=== PATIENT | male | born 1945 | race Caucasian/White ===

== ENCOUNTER 2016-12-04 09:52 | Inpatient (IN) | payer OTHER ==
[2016-12-04] VITALS (19 sets, daily range): BP systolic 98–151; BP diastolic 53–108; PULSE 54–91; TEMP 36.8–37; O2SAT 93–99; Ht 185.4 cm; Wt 83.0 kg
[~2016-12-04] VITALS: Ht 185.4 cm; Wt 83.0 kg
[~2016-12-04 09:52] MED LIST: ASPEC81 PO; CLOP1TAB15 PO; CMD75 PO; GABA1CAP5 PO; LPT40 PO; POTA20TA13 PO; RMR15 PO; SODIUM CHLORIDE 0.9% 1000ML 1,000 ML IV STA; UMEC1AER; ZNTT/150 PO
[2016-12-04] MEDS ORDERED: NITROGLYCERIN 0.4 MG SL PER TAB CHARGE SL STA (09:54)
--- NOTE | 2016-12-04 10:01 | EMERGENCY ROOM VISIT NOTE ---
History Report prepared by Emily: Beena Serrato Under the Supervision of: Dr. Berny Goss M.D. First contact with patient: 09:46 Stated Complaint: HEART ALERT History of Present Illness The patient is a 71 year old male who presents to the Emergency Room with complaints of persistent chest pain that began at 0900 this morning. He currently rates his discomfort as a 9/10 in severity. Per EMS the patient woke this morning with the chest pain and states that his pain has worsened throughout the morning. They note that he was given 10 mg of Morphine without relief of his symptoms. The patient associates nausea with his symptoms today and EMS reports that the patient has been diaphoretic. EMS reports that the patient is on 75 mg of Plavix daily and the patient denies taking his morning medications today. The patient notes a history of four previous MIs. Per EMS the patient's pulse has been running between 40-60 beats per minute and his last blood pressure reading was 135 mmHg systolically. Source of History: patient, EMS Onset: 0900 this morning Position: chest Symptom Intensity: 9/10 Timing: worsening, other (worsening) Associated Symptoms: + diaphoresis, + nausea Review of Systems See HPI for pertinent positives & negatives. A total of 10 systems reviewed and were otherwise negative. Past Medical & Surgical Medical Problems: (1) CAD (coronary artery disease) of bypass graft (2) Closed fracture of proximal end of left humerus (3) COPD (chronic obstructive pulmonary disease) (4) Depression (5) DVT (deep venous thrombosis) (6) History of alcohol abuse (7) Hypercholesteremia (8) Hyperlipidemia (9) Malnutrition (10) WV (myocardial infarction) (11) PE (pulmonary embolism) (12) Peripheral neuropathy (13) Warfarin anticoagulation Surgical Problems: (1) H/o neuroma removed from foot (2) History of carpal tunnel surgery (3) Hx of CABG (4) S/P coronary artery stent placement Family History Patient reports no known family medical history. Social History Smoking Status: Current Every Day Smoker Drug Use: none Marital Status: Housing Status: lives with significant other Occupation Status: retired Current/Historical Medications Scheduled Acetaminophen (Tylenol), 650 MG PO Q6 Atorvastatin (Lipitor), 20 MG PO DAILY Calcium/Vitamin D (Os-[place] 500 Plus D), 1 TAB PO BID Clopidogrel (Plavix), 75 MG PO DAILY Cyanocobalamin (Vitamin B-12), 1,000 MCG PO DAILY Ferrous Sulfate (Kp Ferrous Sulfate), 325 TAB PO BID Folic Acid (Folvite), 1 MG PO DAILY Gabapentin (Neurontin), 400 MG PO TID Magnesium Oxide (Mag-Ox), 400 MG PO BID Metoprolol Succ (Toprol Xl) (Toprol-Xl), 12.5 MG PO DAILY Mirtazapine (Mirtazapine), 15 MG PO HS Potassium Chloride Microencaps (Potassium Chloride Er), 20 MEQ PO BID Ramipril (Ramipril), 2.5 MG PO DAILY Ranitidine (Zantac), 150 MG PO DAILY Sertraline (Zoloft), 50 MG PO DAILY Warfarin Sod (Jantoven), 6 MG PO DIRECTED Scheduled PRN Magnesium Hydroxide (Milk of Magnesia), 30 ML PO DAILY PRN for Constipation Allergies Coded Allergies: No Known Allergies (Unverified , 02/02/16) Physical Exam Vital Signs Date Time Temp Pulse Resp B/P Pulse Ox O2 Delivery O2 Flow Rate FiO2 12/04/16 12:30 36.8 91 18 147/101 94 Room Air 12/04/16 12:30 36.8 90 20 148/108 93 Room Air 12/04/16 12:15 88 16 154/94 94 Room Air 12/04/16 12:00 88 16 154/95 99 Nasal Cannula 4 12/04/16 10:05 56 22 141/82 12/04/16 10:04 56 20 141/82 96 12/04/16 10:00 48 12/04/16 09:59 Nasal Cannula 2.0 12/04/16 09:55 54 20 148/87 95 Nasal Cannula 2.0 12/04/16 09:55 Nasal Cannula 2.0 Physical Exam GENERAL: Patient is diaphoretic. HEAD: Normocephalic atraumatic EYES: Ocular movements intact pupils equal and react to light OROPHARYNX mucous membranes are moist no exudates present no erythema or edema present NECK: Supple no nuchal rigidity CHEST: Good equal expansion LUNGS: Clear and equal to auscultation CARDIAC: Normal S1 and S2 ABDOMEN: Soft nontender no guarding BACK: No CVA tenderness EXTREMITIES: No pain upon palpation normal muscle strength in all groups no clubbing cyanosis or edema NEURO: Patient is following commands is answering questions appropriately. Alert and oriented x3 Cranial Nerves 2-12 grossly intact Medical Decision & Procedures ER Provider Diagnostic Interpretation: X-ray results as stated below per interpretation by me and the radiologist: CHEST ONE VIEW PORTABLE HISTORY: Atypical chest pain. COMPARISON: Chest 09/19/2016. FINDINGS: There are poststernotomy changes. Calcified right hilar and subcarinal lymph nodes are again noted. The heart is stable in size. No focal lung consolidations. No evidence for pulmonary edema. Calcified granuloma within the right lower lobe. No pleural effusions. No pneumothorax. IMPRESSION: No acute process. Electronically signed by: Chano Dumont M.D. 12/04/2016 10:08 AM Dictated Date/Time: 12/04/2016 10:06 AM Laboratory Results 12/04/16 09:35 Red Blood Count 5.27, Mean Corpuscular Volume 89.2, Mean Corpuscular Hemoglobin 31.5, Mean Corpuscular Hemoglobin Concent 35.3, Mean Platelet Volume 9.9, Neutrophils (%) (Auto) 41.3, Lymphocytes (%) (Auto) 41.0, Monocytes (%) (Auto) 11.8, Eosinophils (%) (Auto) 5.2, Basophils (%) (Auto) 0.6, Neutrophils # (Auto ) 3.66, Lymphocytes # (Auto) 3.62, Monocytes # (Auto) 1.04, Eosinophils # (Auto ) 0.46, Basophils # (Auto) 0.05 12/04/16 09:35 Test 12/04/16 09:35 12/04/16 09:52 12/04/16 11:34 White Blood Count 8.84 K/uL (4.8-10.8) Red Blood Count 5.27 M/uL (4.7-6.1) Hemoglobin 16.6 g/dL (14.0-18.0) Hematocrit 47.0 % (42-52) Mean Corpuscular Volume 89.2 fL (80-100) Mean Corpuscular Hemoglobin 31.5 pg (25-34) Mean Corpuscular Hemoglobin Concent 35.3 g/dl (32-36) Platelet Count 239 K/uL (130-400) Mean Platelet Volume 9.9 fL (7.4-10.4) Neutrophils (%) (Auto) 41.3 % Lymphocytes (%) (Auto) 41.0 % Monocytes (%) (Auto) 11.8 % Eosinophils (%) (Auto) 5.2 % Basophils (%) (Auto) 0.6 % Neutrophils # (Auto) 3.66 K/uL (1.4-6.5) Lymphocytes # (Auto) 3.62 K/uL (1.2-3.4) Monocytes # (Auto) 1.04 K/uL (0.11-0.59) Eosinophils # (Auto) 0.46 K/uL (0-0.5) Basophils # (Auto) 0.05 K/uL (0-0.2) RDW Standard Deviation 59.6 fL (36.4-46.3) RDW Coefficient of Variation 18.4 % (11.5-14.5) Immature Granulocyte % (Auto) 0.1 % Immature Granulocyte # (Auto) 0.01 K/uL (0.00-0.02) Prothrombin Time 11.6 SECONDS (9.0-12.0) Prothromb Time International Ratio 1.1 (0.9-1.1) Activated Partial Thromboplast Time 26.4 SECONDS (21.0-31.0) Partial Thromboplastin Ratio 1.0 Anion Gap 11.0 mmol/L (3-11) Est Creatinine Clear Calc Drug Dose 59.7 ml/min Estimated GFR () 64.1 Estimated GFR (Non- 55.3 BUN/Creatinine Ratio 5.7 (10-20) Calcium Level 8.7 mg/dl (8.5-10.1) Magnesium Level 2.0 mg/dl (1.8-2.4) Total Bilirubin 0.9 mg/dl (0.2-1) Direct Bilirubin 0.2 mg/dl (0-0.2) Aspartate Amino Transf (AST/SGOT) 14 U/L (15-37) Alanine Aminotransferase (ALT/SGPT) 10 U/L (12-78) Alkaline Phosphatase 116 U/L (45-117) Total Creatine Kinase 53 U/L (39-308) Creatine Kinase MB 0.9 ng/ml (0.5-3.6) Creatine Kinase MB Ratio 1.7 (0-3.0) Total Protein 7.7 gm/dl (6.4-8.2) Albumin 3.6 gm/dl (3.4-5.0) Lipase 166 U/L (73-393) Kaolin Activated Coagulation Time 266 SECONDS (94-140) Labs reviewed by ED physician. Medications Administered Medications (Trade) Dose Ordered Sig/Nieves Route Start Time Stop Time Status Last Admin Dose Admin Heparin Sodium (Porcine) (Heparin Iv Bolus) 10,000 unit STK-MED ONCE .ROUTE 12/04/16 10:15 12/04/16 10:17 DC 12/04/16 10:15 8,000 UNIT Fentanyl Citrate (Fentanyl Inj) 100 mcg STK-MED ONCE .ROUTE 12/04/16 10:15 12/04/16 10:17 DC 12/04/16 10:15 75 MCG Midazolam HCl (Versed Inj) 2 mg STK-MED ONCE .ROUTE 12/04/16 10:15 12/04/16 10:17 DC 12/04/16 10:15 2 MG Eptifibatide (Integrilin Inj) 40 mg STK-MED ONCE IV 12/04/16 10:29 12/04/16 10:31 DC 12/04/16 10:29 40 MG Eptifibatide (Integrilin Inj) 75 mg STK-MED ONCE IV 12/04/16 10:29 12/04/16 10:31 DC 12/04/16 10:29 75 MG Atropine Sulfate 1 mg 1 mg STK-MED ONCE .ROUTE 12/04/16 10:41 12/04/16 10:44 DC 12/04/16 10:41 1 MG Sodium Chloride (Nss 1000ml) 1,000 ml @ 100 mls/hr Q10H IV 12/04/16 12:15 12/04/16 19:44 12/04/16 13:06 100 MLS/HR ECG Indication: chest pain Rate (beats per minute): 49 Rhythm: sinus bradycardia Findings: ST depression (Inferior), ST elevation (Anterior) ED Course 0942: I took the medical command call on this patient at this time and a code Heart Alert was called. 0952: Ordered Sodium Chloride 1000 ml @ 999 mls/hr IV. 0953: Past medical records reviewed. The patient was evaluated in room A1. A complete history and physical examination was performed. 0954: Ordered Nitroglycerin 0.4 mg SL. 0959: Dr. Ferro, Cardiology arrived at the patient's bedside. I updated him on the patient's case. 1007: The patient was taken to the Cardiac Catheterization Lab for further treatment at this time. 1009: I talked with the patient's ex- at this time to get a hold of the patient's daughter. 1011: I left a message for the patient's daughter to call back. Medical Decision Differential diagnosis: Etiologies such as cardiac ischemia, aortic dissection, pulmonary embolism, pneumonia, pneumothorax, musculoskeletal, infections, pericarditis, myocarditis , esophageal rupture, gastrointestinal, as well as others were entertained. This is a 71-year-old male who presents emergency department complaining of severe chest pain. I took medical command on this patient. He is having a STEMI. The patient did not take his Plavix this morning. He was given morphine 5 mg 2. I did discuss case with Dr. Ferro who agreed to take the patient to the Records Management Manager. Patient was in agreement with the treatment plan. Impression Primary Impression: STEMI (ST elevation myocardial infarction) Critical Care I have personally spent greater than 30 minutes of critical care time in the direct management of this patient. This includes bedside care, interpretation of diagnostic studies, and testing, discussion with consultants, patient, and family members, and other required patient management activities. This 30 minutes is in excess of all separately billable procedures. Scribe Attestation The scribe's documentation has been prepared under my direction and personally reviewed by me in its entirety. I confirm that the note above accurately reflects all work, treatment, procedures, and medical decision making performed by me. Departure Information Dispostion Being Evaluated By Raysa Bergman M.D. (PCP) Problem Qualifiers Primary Impression: STEMI (ST elevation myocardial infarction) Involved coronary artery: right coronary artery Qualified Codes: I21.11 - ST elevation (STEMI) myocardial infarction involving right coronary artery
[2016-12-04 10:07] LABS: BASO % 0.6 %; BASO ABS # 0.05 K/uL (0-0.2); COMPLETE YES; EOS % 5.2 %; IG% 0.1 %; LYMPH ABS # 3.62 K/uL (1.2-3.4); MEAN CELL VOLUME 89.2 fL (80-100); MEAN CORPUSCULAR HEMOGLOBIN 31.5 pg (25-34); MEAN CORPUSCULAR HGB CONC 35.3 g/dl (32-36); MEAN PLATELET VOLUME 9.9 fL (7.4-10.4); MONO % 11.8 %; NEUT % 41.3 %; PLATELET COUNT 239 K/uL (130-400); RED BLOOD COUNT 5.27 M/uL (4.7-6.1); WHITE BLOOD COUNT 8.84 K/uL (4.8-10.8)
--- NOTE | 2016-12-04 10:09 | DIAGNOSTIC IMAGING REPORT ---
CHEST ONE VIEW PORTABLE HISTORY: Atypical chest pain. COMPARISON: Chest 09/19/2016. FINDINGS: There are poststernotomy changes. Calcified right hilar and subcarinal lymph nodes are again noted. The heart is stable in size. No focal lung consolidations. No evidence for pulmonary edema. Calcified granuloma within the right lower lobe. No pleural effusions. No pneumothorax. IMPRESSION: No acute process. Electronically signed by: Chano Dumont M.D. 12/04/2016 10:08 AM Dictated Date/Time: 12/04/2016 10:06 AM
[2016-12-04] MEDS ORDERED: ATOR-22 PO (10:12)
[2016-12-04] MEDS ORDERED: FERR1TAB13 PO (10:12)
[2016-12-04] MEDS ORDERED: ACET-1311 PO (10:12)
[2016-12-04] MEDS ORDERED: CYAN10005 PO (10:12)
[2016-12-04] MEDS ORDERED: METO25TA3 PO (10:12)
[2016-12-04] MEDS ORDERED: CALC500C70 PO (10:12)
[2016-12-04] MEDS ORDERED: MAGN400T6 PO (10:12)
[2016-12-04] MEDS ORDERED: MOMLX PO (10:12)
[2016-12-04] MEDS ORDERED: SERT50TA PO (10:12)
[2016-12-04] MEDS ORDERED: FOLI1TAB7 PO (10:12)
[2016-12-04] MEDS ORDERED: RAMI2.5C PO (10:12)
[2016-12-04] MEDS ORDERED: MIDAZOLAM HCL 1 MG/ML 2ML VIAL ONE (10:15)
[2016-12-04] MEDS ORDERED: NiCARDipine HCL INJ 2.5 MG/ML 10 ML AMP ONE (10:15)
[2016-12-04] MEDS ORDERED: FENTANYL CITRATE INJ 50 MCG/1 ML 2 ML VIAL ONE (10:15)
[2016-12-04] MEDS ORDERED: HEPARIN SOD (PORCINE) 1000 UNIT/ML 10 ML VIAL ONE (10:15)
[2016-12-04] MEDS ORDERED: NITROGLYCERIN/D5W 100MCG/ML 20ML SYR ONE (10:16)
[2016-12-04] MEDS ORDERED: WARF6TAB5 PO (10:17)
[2016-12-04] MEDS ORDERED: DOPamine 400MG / 250ML D5W ONE (10:20)
[2016-12-04 10:22] LABS: BUN/CREATININE RATIO 5.7 (10-20); CALCIUM 8.7 mg/dl (8.5-10.1); CREATININE 1.3 mg/dl (0.60-1.40); POTASSIUM 3.2 mmol/L (3.5-5.1)
[2016-12-04 10:25] LABS: CKMB/CK RATIO 1.7 (0-3.0)
[2016-12-04 10:28] LABS: INR 1.1 (0.9-1.1); PROTHROMBIN TIME (PATIENT) 11.6 SECONDS (9.0-12.0)
[2016-12-04] MEDS ORDERED: EPTIFIBATIDE 0.75 MG/ML 75MG VIAL IV ONE (10:29)
[2016-12-04] MEDS ORDERED: EPTIFIBATIDE 2 MG/ML 10 ML VIAL IV ONE (10:29)
[2016-12-04] MEDS ORDERED: ATROPINE SULFATE 0.1 MG/ML 10 ML SYR ONE (10:41)
[2016-12-04] MEDS ORDERED: TICAGRELOR 90 MG TAB PO ONE ×2 (12:09→12:15)
[2016-12-04] MEDS ORDERED: MAGNESIUM HYDROXIDE SUSP 30 ML UDC PO PRN (12:15)
[2016-12-04] MEDS ORDERED: EPTIFIBATIDE BOLUS / DRIP IV ONE (12:15)
[2016-12-04] MEDS ORDERED: ATROPINE SULFATE 0.1 MG/ML 5ML SYR IV PRN (12:15)
[2016-12-04] MEDS ORDERED: SODIUM CHLORIDE 0.9% 1000ML 1,000 ML IV SCH (12:15)
[2016-12-04] MEDS ORDERED: ACETAMINOPHEN 325 MG TAB PO PRN (12:15)
[2016-12-04] MEDS ORDERED: ONDANSETRON INJ 2 MG/ML 2 ML VIAL IV PRN (12:15)
--- NOTE | 2016-12-04 12:31 | Procedure Note ---
Pre-Mod Sedation Assessment General Date of Moderate Sedation: Dec 04, 2016. Vital Signs: Vital Signs Past 12 Hours Date Time Temp Pulse Resp B/P Pulse Ox O2 Delivery O2 Flow Rate FiO2 12/04/16 12:00 88 16 154/95 99 Nasal Cannula 4 12/04/16 10:05 56 22 141/82 12/04/16 10:04 56 20 141/82 96 12/04/16 10:00 48 12/04/16 09:59 Nasal Cannula 2.0 12/04/16 09:55 54 20 148/87 95 Nasal Cannula 2.0 12/04/16 09:55 Nasal Cannula 2.0 Review Cardiovascular: regular rate, rhythm, no edema, no gallop, no JVD Abdomen: normal bowel sounds, non tender, soft Lungs: chest non-tender, lungs clear, normal breath sounds Airway Class: II Pre-Sedation Airway Assessment Oral Cavity: WNL Able to Visualize Vocal Cords: Yes Short Thick Neck: No Hx of Sleep Apnea: No Smoking Status: Current Every Day Smoker Mallampati Classification: Class II ASA Classification: Class III Procedure Planning Contraindications-for Mod Sed: None Yes Notes The planned sedation has been discussed with the patient and consent obtained. I have identified the patient, determined the appropriateness of sedation and have assessed the patient immediately prior to the procedure. All medicine(s) and interventions are by my order.
--- NOTE | 2016-12-04 12:32 | Procedure Note ---
Post-Mod Sedation Assessment General Date of Moderate Sedation Dec 04, 2016. Vital Signs: Vital Signs Past 12 Hours Date Time Temp Pulse Resp B/P Pulse Ox O2 Delivery O2 Flow Rate FiO2 12/04/16 12:00 88 16 154/95 99 Nasal Cannula 4 12/04/16 10:05 56 22 141/82 12/04/16 10:04 56 20 141/82 96 12/04/16 10:00 48 12/04/16 09:59 Nasal Cannula 2.0 12/04/16 09:55 54 20 148/87 95 Nasal Cannula 2.0 12/04/16 09:55 Nasal Cannula 2.0 Review - Discharge Criteria Vital Signs Stable: Yes Alert/Oriented/Conversant: Yes Returned to Baseline Mental St: Yes Nausea Absent/Minimal: Yes Pain/Discomfort/Absent/Minimal: Yes Normal/Baseline Respirations: Yes Active Bleeding?: No Pt Received D/C Instructions: N/A Prescriptions Given: None Specific Proced. D/C Criteria Distal Pulses Present (Cardiac: Yes Groin site assessed-Card Cath: Yes Voided Prior To Discharge: N/A
[2016-12-04] MEDS ORDERED: EPTIFIBATIDE INJ 75 MG PREMIXED IV SCH (13:00)
--- NOTE | 2016-12-04 13:19 | Cardiac Catheterization ---
Procedure Note Procedure Date Dec 04, 2016. Pre-Procedure Diagnosis STEMI AUC Score 9 Post-Procedure Diagnosis Severe CAD, Successful PCI Procedure(s) Performed Coronary Angiography, Drug Eluting Stent, IVUS, Femoral Artery Angiography Filter Cleaner Dr. Ferro Farm Appraiser(s) Estimated Blood Loss 25 Medication(s) Fentanyl, Heparin, Nitroglycerin, Versed, Lidocaine 1% Ticagrelor Summary of Findings Indication: STEMI/Heart Alert Access: 6Fr Right Femoral Artery Catheters: JR4 guide, JL4, JR4 diagnostic catheters Findings: LM - Diffuse disease, up to 70% distal stenosis LAD - Severe 90% diffuse proximal disease prior to small 1st diagonal, subtotally occluded mid LAD with competitive flow from SEO. Circumflex - Occluded at the ostium, OM1, OM2 partially fills via bridging left to left collaterals Ramus - Patent with luminal irregularities RCA - 100% occluded in the mid segment, stent thrombosis. SEO-LAD- Patent. 40% proximal subclavian stenosis. Distal LAD is small vessel with luminal irregularities SVG-OM- Known to be occluded Femoral Artery - Mild diffuse disease, acceptable for closure device. Arterial Closure: AngioSeal PCI: Antithrombotic therapy: Heparin, Integrilin, Ticagrelor Procedure: BMW wire placed into distal R-PLB Mid to distal RCA predilated with 2.5 compliant balloon. Prowater placed into distal PDA Ostium of PDA pre-dilated with 2.5 balloon IVUS used to asses for intrastent pathology. Significant intrastent plaque in the mid segment to early distal segment. Proximal and distal RCA without significant restenosis. With the use of a guideliner a 2.5 x 18 Resolute ROBBI placed from distal RCA into PDA Re-wired into PAV/PLB with Medical Affairs Manager 50 wire Ostial PAV stenosis/stent struts dilated with 1.5, then 2.5 balloon. Kissing balloon inflation to PAV, PDA ostium with 2.5 and 2.75 balloons Mid RCA further predilated with 3.0 balloon. Mid RCA stented with 3.5 x 22 Resolute ROBBI Post dilated with stent balloon to high atmospheres. Post procedure good angiographic result with NEVA 3 flow, well-expanded stents and no obvious coronary complications. ST segment elevation/chest pain resolved. Summary: 1. 100% mid RCA acute occlusion/Recurrent stent thrombosis - IVUS assessment showed significant mid segment restenosis(?neoatherosclerosis ) - 99% stenosis of ostial PDA 2. Severe left main, proximal LAD, ostial circumflex disease - unchanged from prior 3. Patent SEO-LAD. Known occluded SVG-OM 4. Successful PCI of mid RCA, ostial PDA with 2 ROBBI (3.5 x 22 Resolute, 2.5 x 18 Resolute) Recommendations: Admit to ICU for continued monitoring Loaded with ticagrelor in director geophysical laboratory Continue integrilin for 6 hours Continue DAPT with ASA/ticagrelor in hospital --> likely switch to plavix on discharge. Recommend lifelong Plavix. Further discussion regarding need of continued triple therapy High dose statin, beta-don, ALON Smoking cessation Cardiac Rehab Hemodynamics Rest Ao: 175/76/119 Final Ao: 161/89/118 LV: - Recommendations PCI without planned CABG Specimens None Radiation Exposure (mGy) 4131 Contrast (mls) 165 Visipaque Fluids (cc crystalloids) 200 NSS Drains None Anesthesia Moderate Procedural Complication(s) None Disposition ICU ACC Data Cardiac Status Clinical evaluation leading to the procedure CAD Presntation: STEMI STEMI or Non-STEMI: Symptom Onset Date/Time: 09:00, 12/04/2016 Anginal Classification: CCS IV Heart Failure: No, NYHA Class: CCS I Cardiogenic Shock w/in 24Hrs: No Cardiac Arrest w/in 24Hrs: No Imaging studies past 6 months: Yes Stress studies past 6 months: No Standard Exercise Stress Test: No Stress Echocardiogram: No Stress Testing w/SPECT MPI: No Cardiac CTA: No Coronary Anatomy Dominant: Right Left Main (% Stenosis): Distal (70) LAD (% Stenosis): Proximal (90), Mid (99) Circumflex (% Stenosis): Ostial (100) RCA (% Stenosis): Mid (100) R PDA (% Stenosis): Ostial (99) Diagnostic Physician's Name: Jose Ferro MD Status: Emergency Closure Device Percutaneous Entry Location: Radial Closure Device: Angio-Seal Recommendations: PCI without planned CABG PCI Indication: Immediate PCI for STEMI Subsequent EKG Date/Time: 951 Lesion Segment Name: mid RCA Culprit Artery: Yes Stenosis Prior to Rx (%): 100 Chronic Total Occlusion: No IVUS: Yes FFR: No Pre-Procedure NEVA Flow: 0 Previously Treated Lesion: Yes Treated Lesion: Timeframe: 1-5 months Treated with Stent: No In-Stent Restenosis: Yes In-Stent Thrombosis: Yes Stent Type: type unknown Lesion Complexity: High/C Lesion Length (mm): 20 Thrombus Present: Yes Bifurcation Lesion: No Guidewire Across Lesion: Yes Guidewire: Stenosis Post-Procedure (%): 0 Post-Procedure NEVA Flow: 3 Device(s) Deployed: Yes Type of Device(s): 3.5 x 22 Resolute ROBBI Lesion #2 Segment Name: Ostial PDA Culprit Artery: No Stenosis Prior to Rx (%): 99 Chronic Total Occlusion: No IVUS: No FFR: No Pre-Procedure NEVA Flow: 0 Previously Treated Lesion: Yes Lesion Complexity: High/C Lesion Length (mm): 12 Thrombus Present: Yes Bifurcation Lesion: Yes Guidewire Across Lesion: Yes Intraprocedure Events Significant Dissection: No Perforation: No
--- NOTE | 2016-12-04 13:58 | Critical Care Consultation ---
Critical Care Consultation Date of Consultation: Dec 04, 2016. Attending Physician: Chayito Small DO Reason for Consultation: Post PCI with drug-eluting stent to the RCA History of Present Illness Attending: Dr. Rosenbaum This is a 71-year-old male with multiple admissions to this facility for prior cardiac disease and stenting. He has a history of two-vessel CABG in the past and multiple cardiac catheterizations with stent placement. The patient states that he awoke this morning with no specific chest pain but significant chest tightness which usually is a prodrome for acute ND. He called EMS and was transported to our emergency room where he was evaluated and found to have ST elevation with ongoing chest pain. He was taken emergently to the cardiac catheterization lab by Dr. Ferro and found to have sinus bradycardia with inferior ST elevations. In the Power [employer] he was found to have 100% occlusion of the mid RCA inside prior stents. Patient had balloon dilation and restenting. Patient was treated with two new drug-eluting stents. One was placed in the ostium of the PDA and the other to the mid RCA. It was noted that his prior vein graft to his OM was known to be occluded. In discussion with the patient is unclear on what medications he does and does not take. He reports that his daughter Conchita puts his medications into a pill container weekly and he takes them based on that distribution. He also reports that he does have difficulty with swallowing large pills. He admits to cutting pills and crushing pills so he can consume them. He is unsure if these pills are long-acting or immediate release and is further unsure as to what these pills are. He does report pill dysphagia with vomiting occasionally at home for an unknown amount of time. I did speak with the patient's daughter Conchita and she advised me that the patient has been out of Plavix. This is been due to be refilled but he has not refilled it. She also informed me that he was advised to go in for regular INR checks because of recurrence of ethanol abuse and has not done that. Consequently, she is only giving him 4 mg daily of Coumadin which she believes he is taking. She does admit to feeling his pill container to the best of her ability but she has not been able to get clear information from him. She reports that her father was told that if he continues be noncompliant with medications and with ethanol use that he would need to be taken off the Plavix and Coumadin due to increased risk. At the time of my examination, the patient denied any chest pain or shortness of breath. He reports this chest tightness was completely resolved. He does talk about his of 46 years leaving him in June 2016 and was emotional as he recounted this to me. I specifically asked him about suicidal intention and he denied intent or means. The patient has no other acute complaints. Past Medical/Surgical History Medical Problems: (1) CAD (coronary artery disease) of bypass graft (2) Closed fracture of proximal end of left humerus (3) COPD (chronic obstructive pulmonary disease) (4) Depression (5) DVT (deep venous thrombosis) (6) History of alcohol abuse (7) Hypercholesteremia (8) Hyperlipidemia (9) Malnutrition (10) ND (myocardial infarction) (11) PE (pulmonary embolism) (12) Peripheral neuropathy (13) Warfarin anticoagulation Surgical Problems: (1) H/o neuroma removed from foot (2) History of carpal tunnel surgery (3) Hx of CABG (4) S/P coronary artery stent placement Family History Patient reports no known family medical history. Social History Smoking Status: Current Every Day Smoker (patient admits to 4-5 cigarettes daily and off-and-on smoking his whole life since age 12) Smokeless Tobacco Use: No Alcohol Use: patient reports daily ethanol use of between two and four drinks Drug Use: none Marital Status: (patient is but states that his is estranged since June 2016) Housing Status: lives alone (the patient currently lives alone. 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) Allergies Coded Allergies: No Known Allergies (Unverified , 02/02/16) Home Medications Scheduled Acetaminophen (Tylenol), 650 MG PO Q6 Atorvastatin (Lipitor), 20 MG PO DAILY Calcium/Vitamin D (Os-[place] 500 Plus D), 1 TAB PO BID Clopidogrel (Plavix), 75 MG PO DAILY Cyanocobalamin (Vitamin B-12), 1,000 MCG PO DAILY Ferrous Sulfate (Kp Ferrous Sulfate), 325 TAB PO BID Folic Acid (Folvite), 1 MG PO DAILY Gabapentin (Neurontin), 400 MG PO TID Magnesium Oxide (Mag-Ox), 400 MG PO BID Metoprolol Succ (Toprol Xl) (Toprol-Xl), 12.5 MG PO DAILY Mirtazapine (Mirtazapine), 15 MG PO HS Potassium Chloride Microencaps (Potassium Chloride Er), 20 MEQ PO BID Ramipril (Ramipril), 2.5 MG PO DAILY Ranitidine (Zantac), 150 MG PO DAILY Sertraline (Zoloft), 50 MG PO DAILY Warfarin Sod (Jantoven), 6 MG PO DIRECTED Scheduled PRN Magnesium Hydroxide (Milk of Magnesia), 30 ML PO DAILY PRN for Constipation Current Inpatient Medications Current Inpatient Medications Medications (Trade) Dose Ordered Sig/Nieves Route Start Time Stop Time Status Last Admin Dose Admin Sodium Chloride (Nss 1000ml) 1,000 ml @ 100 mls/hr Q10H IV 12/04/16 12:15 12/04/16 19:44 12/04/16 13:06 100 MLS/HR Atropine Sulfate (Atropine Sulfate 0.1MG/Ml Inj) 0.5 mg ONE PRN IV 12/04/16 12:15 01/03/17 12:14 Ondansetron HCl (Zofran Inj) 4 mg Q6H PRN IV 12/04/16 12:15 01/03/17 12:14 Aspirin (Ecotrin Tab) 81 mg QAM PO 12/05/16 09:00 01/04/17 08:59 Atorvastatin Calcium (Lipitor Tab) 80 mg QAM PO 12/05/16 09:00 01/04/17 08:59 Acetaminophen (Tylenol Tab) 650 mg Q4H PRN PO 12/04/16 12:15 01/03/17 12:14 Calcium/Vitamin D (Caltrate Plus Tab) 1 tab BID PO 12/04/16 21:00 01/03/17 20:59 Cyanocobalamin (Vitamin B-12 Tab) 1,000 mcg DAILY PO 12/05/16 09:00 01/04/17 08:59 Folic Acid (Folvite Tab) 1 mg DAILY PO 12/05/16 09:00 01/04/17 08:59 Gabapentin (Neurontin Cap) 400 mg TID PO 12/04/16 14:00 01/03/17 13:59 Magnesium Hydroxide (Milk Of Magnesia Susp) 30 ml DAILY PRN PO 12/04/16 12:15 01/03/17 12:14 Magnesium Oxide (Mag-Ox Tab) 400 mg BID PO 12/04/16 21:00 01/03/17 20:59 Metoprolol Succinate (Toprol Xl Tab) 12.5 mg DAILY PO 12/05/16 09:00 01/04/17 08:59 Mirtazapine (Remeron Tab) 15 mg HS PO 12/04/16 21:00 01/03/17 20:59 Ranitidine HCl (zANTac TAB) 150 mg DAILY PO 12/05/16 09:00 01/04/17 08:59 Sertraline HCl (Zoloft Tab) 50 mg DAILY PO 12/05/16 09:00 01/04/17 08:59 Ferrous Sulfate (Feosol Tab) 325 mg BIDM PO 12/04/16 16:30 01/03/17 16:29 Enalapril Maleate (Vasotec Tab) 10 mg DAILY PO 12/05/16 09:00 01/04/17 08:59 Ticagrelor 90 mg 90 mg BID PO 12/04/16 21:00 01/03/17 20:59 Eptifibatide (Integrilin Inj) 100 ml @ 14 mls/hr Q7H9M IV 12/04/16 13:00 12/04/16 18:00 12/04/16 13:07 14 MLS/HR Miscellaneous (Stop Order) 1 ea ONE ONCE N/A 12/04/16 18:00 12/04/16 18:01 Review of Systems A total of 12 systems was reviewed and is negative other than as listed above in the HPI Physical Exam Date Time Temp Pulse Resp B/P Pulse Ox O2 Delivery O2 Flow Rate FiO2 12/04/16 13:30 68 20 126/83 97 12/04/16 13:00 90 14 145/82 95 12/04/16 12:44 91 22 149/103 96 12/04/16 12:30 36.8 90 20 148/108 93 Room Air 12/04/16 12:15 88 16 154/94 94 Room Air 12/04/16 12:00 88 16 154/95 99 Nasal Cannula 4 12/04/16 10:05 56 22 141/82 12/04/16 10:04 56 20 141/82 96 12/04/16 10:00 48 12/04/16 09:59 Nasal Cannula 2.0 12/04/16 09:55 54 20 148/87 95 Nasal Cannula 2.0 12/04/16 09:55 Nasal Cannula 2.0 GENERAL : No acute distress. Pleasant. Tearful when discussing separation from his EYES: No icterus, gaze conjugate. Pupils equal NOSE: No evidence of epistaxis. No evidence of septal breech MOUTH: No lesions or candidiasis. Mucosa moist NECK: Supple. No appreciation of bruits LUNGS: CTA B/L, no wheezes, rales or rhonchi HEART: Regular, rate controlled. ABDOMEN: Soft, NT, ND, BS Present. EXTREMITIES: No LE edema, pedal pulses intact. NEURO: A&OX3. Laboratory Results Last 24 Hours Test 12/04/16 09:35 12/04/16 09:52 White Blood Count 8.84 K/uL Red Blood Count 5.27 M/uL Hemoglobin 16.6 g/dL Hematocrit 47.0 % Mean Corpuscular Volume 89.2 fL Mean Corpuscular Hemoglobin 31.5 pg Mean Corpuscular Hemoglobin Concent 35.3 g/dl Platelet Count 239 K/uL Mean Platelet Volume 9.9 fL Neutrophils (%) (Auto) 41.3 % Lymphocytes (%) (Auto) 41.0 % Monocytes (%) (Auto) 11.8 % Eosinophils (%) (Auto) 5.2 % Basophils (%) (Auto) 0.6 % Neutrophils # (Auto) 3.66 K/uL Lymphocytes # (Auto) 3.62 K/uL Monocytes # (Auto) 1.04 K/uL Eosinophils # (Auto) 0.46 K/uL Basophils # (Auto) 0.05 K/uL RDW Standard Deviation 59.6 fL RDW Coefficient of Variation 18.4 % Immature Granulocyte % (Auto) 0.1 % Immature Granulocyte # (Auto) 0.01 K/uL Prothrombin Time 11.6 SECONDS Prothromb Time International Ratio 1.1 Activated Partial Thromboplast Time 26.4 SECONDS Partial Thromboplastin Ratio 1.0 Sodium Level 133 mmol/L Potassium Level 3.2 mmol/L Chloride Level 99 mmol/L Carbon Dioxide Level 23 mmol/L Anion Gap 11.0 mmol/L Blood Urea Nitrogen 7 mg/dl Creatinine 1.30 mg/dl Est Creatinine Clear Calc Drug Dose 59.7 ml/min Estimated GFR () 64.1 Estimated GFR (Non- 55.3 BUN/Creatinine Ratio 5.7 Random Glucose 121 mg/dl Calcium Level 8.7 mg/dl Magnesium Level 2.0 mg/dl Total Bilirubin 0.9 mg/dl Direct Bilirubin 0.2 mg/dl Aspartate Amino Transf (AST/SGOT) 14 U/L Alanine Aminotransferase (ALT/SGPT) 10 U/L Alkaline Phosphatase 116 U/L Total Creatine Kinase 53 U/L Creatine Kinase MB 0.9 ng/ml Creatine Kinase MB Ratio 1.7 Total Protein 7.7 gm/dl Albumin 3.6 gm/dl Lipase 166 U/L Diagnostic Results CHEST ONE VIEW PORTABLE HISTORY: Atypical chest pain. COMPARISON: Chest 09/19/2016. FINDINGS: There are poststernotomy changes. Calcified right hilar and subcarinal lymph nodes are again noted. The heart is stable in size. No focal lung consolidations. No evidence for pulmonary edema. Calcified granuloma within the right lower lobe. No pleural effusions. No pneumothorax. IMPRESSION: No acute process. Electronically signed by: Chano Dumont M.D. 12/04/2016 10:08 AM Assessment & Plan ST ELEVATED ND Urgently taken to cardiac catheterization lab Status post restenting of RCA with good postprocedure flow Integrilin intraoperatively - now off Appreciate Dr. Ferro input Dr. Ferro as asked for Brilinta while an inpatient and as an outpatient if covered by insurance Patient is been noncompliant with Plavix and with Coumadin for several weeks Ankit Arango to bring in medication bottles tomorrow Continue enalapril, brilinta, Toprol-XL, aspirin Continue Atorvastatin Continue to monitor in telemetry HISTORY OF PE/DVT/CAD Patient has been noncompliant with Coumadin - has not gone for INR checks Currently taking 4 mg of warfarin daily Daily ethanol use Plavix reported to have no refills on prescription per daughter Conchita Teds/SCDs Antiplatelet agents and anticoagulation per cardiology RENAL BUN 7.0 Creatinine 1.3 Follow serial labs secondary to cardiac catheterization ELECTROLYTES Potassium 3.2 - replete Magnesium 2.0 Sodium 133 Calcium 8.7 Follow serial labs and replete as necessary ENDOCRINE No history of diabetes mellitus Sugars high in the past - check hemoglobin A1c with next lab draw TSH in 01/2016 1.86 - check TSH with next lab draw DEPRESSION Patient seen by Dr. Barker September 2016 She recommended mirtazapine 30 mg at bedtime at that time Medication reconciliation shows sertraline - patient unsure if he is taking this or not Patient denies suicidal ideation or means Continue to follow Check medication bottles with daughter tomorrow when she brings them in IV ACCESS Peripheral IV access in place No indication for central line at this time ETHANOL ABUSE Patient admits to 2-4 drinks daily - last drink yesterday Continue folic acid and vitamin B12 Watch for signs of withdrawal GI PROPHYLAXIS Ranitidine DVT PROPHYLAXIS Chemical prophylaxis per cardiology Started Brilinta Continue ASA Teds/SCDs CCT: 0 minutes. Level IV inpatient consult billing Discussed with Dr. Rosenbaum. Please refer to her addendum for further recommendations. Attending Doctor Of Chiropractic: I have reviewed the above documentation and have discussed this patient's care with Ricardo Edouard PA-C. The assessment and plan is thoroughly outlined in this note. I have reviewed the chart and personally examined and interviewed the patient. He has been nauseated this afternoon but is drinking Pepsi without difficulty. He denies chest pain. He is a bit restless and has not urinated more than 100cc since he arrived in the ICU. Bladder scan is 500cc and would like to place a beltre but his integrelin was just stopped. He is at risk for alcohol withdrawal and I have ordered PRN ativan. R groin is soft and dressing is clean, dry and intact. Will continue to watch for signs of bleeding here in the ICU and await any further recommendations by Cardiology.
--- NOTE | 2016-12-04 14:12 | CARDIOLOGY CONSULTATION ---
DATE OF CONSULTATION: 12/04/2016 DATE OF CONSULTATION: 12/04/2016. CONSULTATION REQUESTED BY: Dr. Goss. REASON FOR CONSULTATION: Heart alert. HISTORY OF PRESENT ILLNESS: Mr. Doty is a 71-year-old man with a history of severe coronary artery disease status post remote 2 vessel CABG and multiple prior PCIs with prior stent placements to his RCA, who presented this morning with acute onset of chest pain and was found to have new inferior ST elevations for which a heart alert was called. The patient's recent cardiac history is remarkable for 2 prior events of in-stent stent thrombosis. Initial event was in July 2015, at which time the patient was treated with 2 Xience drug-eluting stents to his distal and proximal to ostial RCA with good angiographic result. The patient has a history of prior PE/DVT and is on Coumadin and had been on Coumadin and Plavix up until September of 2016 when again presented with acute onset of chest pain and was again found to have an occluded mid RCA. On this occasion, he was treated with balloon angioplasty alone to his mid RCA as well as to the ostium of his PDA. He was left with mild to moderate residual stenosis in the mid RCA and PDA but NEVA 3 flow. The remainder of that course was complicated by patient's ongoing issues with depression requiring psychiatric involvement but was eventually discharged to home with reportedly assistance with his medications from his daughter. This morning approximately 9:00 a.m., the patient developed acute onset of chest pain and pressure similar to prior symptoms. EMS was contacted and initial EKG remarkable for ST elevations and heart alert was activated from the field. Initial EKG here at 9:52 a.m. Again showed sinus bradycardia with inferior ST elevations and he was taken taken emergently to the laborer [facility] leaf. In the laborer [facility] leaf was found to have 100% mid occluded RCA inside prior stents. After flow was reestablished with balloon dilation FRANKIE assessment showed significant interstent restenosis/plaque as well. Angiography revealed a 99% stenosis in the ostium of the PDA. He was treated with 2 new drug-eluting stents, 1 to the ostium of the PDA, a 2.5 x 18 Resolute drug-eluting stent and a 3.5 x 22 Resolute drug-eluting stent to his mid RCA. A good angiographic result was obtained and post-procedure patient was chest pain free with resolution of his ST segments. Angiography of his left system showed severe disease, unchanged from prior and he had a patent SEO to LAD. His prior vein graft to his OM was known to be occluded. PAST MEDICAL HISTORY: 1. Coronary artery disease as discussed above. 2. 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 3. Hyperlipidemia. 4. Prior history of bradycardia and hypotension, although has been asymptomatic. 5. Ongoing tobacco use. ALLERGIES: Denies. SOCIAL HISTORY: Ongoing tobacco. Lives by himself at present. Occasional alcohol. FAMILY HISTORY: Noncontributory. MEDICATIONS: 1. Tylenol. 2. Atorvastatin 20. 3. Os-[place] 500+ D. 4. Plavix 75. 5. Vitamin B12. 6. Ferrous sulfate. 7. Folic acid. 8. Gabapentin. 9. Magnesium hydroxide. 10. Magnesium oxide. 11. Toprol-XL 12.5 daily. 12. Mirtazapine. 13. Potassium chloride. 14. Ramipril 2.5 mg daily. 15. Rimantadine. 16. Sertraline. 17. Warfarin. REVIEW OF SYSTEMS: Unable to be obtained in the emergent setting. PHYSICAL EXAMINATION: VITAL SIGNS: At presentation, pulse 54, blood pressure 148/87, respiratory rate of 20, satting 95% on 2 liters. GENERAL: The patient appeared uncomfortable initially in no acute distress. HEAD, EYES, EARS, NOSE, AND THROAT: His sclerae are anicteric. Oropharynx is clear. Mucous membranes are moist. NECK: Supple. LUNGS: Clear to auscultation bilaterally with only few scant crackles at the right base. CARDIAC: He was bradycardic but regular with no appreciable murmurs or gallops. ABDOMEN: Soft, nontender, nondistended with positive bowel sounds. EXTREMITIES: Warm. He had intact distal pulses including 2+ right and left radial pulses, +2 femoral pulses bilaterally. SKIN: Showed no rashes or lesions. NEUROLOGIC: The patient was confused, but alert to person and place. Cranial nerves grossly intact. LABORATORY DATA: WBC 8.8, hemoglobin 16.6, platelets of 239. INR 1.1. Sodium 133, potassium 3.2, BUN of 7, creatinine of 1.3. Chest x-ray showed no acute cardiopulmonary process. Cardiac catheterization as described above. EKG as described above. IMPRESSION AND PLAN: 1. Inferior ST segment elevation myocardial infarction. 2. Recurrent stent thrombosis. 3. Stent restenosis. 4. Severe [place] left system disease with patent SEO to LAD. 5. Major depression. 6. Prior venous thromboembolism. 7. Anemia. 8. Hypokalemia. 9. Ongoing tobacco use. The patient now status post PCI to his mid RCA and ostial PDA. Good angiographic result was obtained and patient is now chest pain free with resolution of ST segments. Going forward we will admit patient to ICU. Continue on Integrilin for 6 hours. The patient was loaded with Brilinta in the laborer gold leaf and will continue aspirin and Brilinta during hospitalization. Will likely switch to Plavix on discharge. Long-term will have to make a decision regarding ongoing triple therapy. It appears that patient has not been taking his medication as prescribed. We will continue on home ALON and beta don as well as high dose statin. Discussed smoking cessation and cardiac rehab at some point in the hospitalization. Supplement electrolytes as needed. We will continue to trend troponins until peaks and check echocardiogram later today.
--- NOTE | 2016-12-04 14:40 | History and Physical ---
History & Physical Date & Time of Service: Dec 04, 2016 at 13:47 Chief Complaint: Heart Alert Primary Care Physician: History of Present Illness Source: patient This is a 71 y/o male with PMHx of CAD s/o CABG and stent placement, h/o DVT/PE on Coumadin, COPD with ongoing tobacco use, Dyslipidemia and other problems as outlined below who presented to the ED this morning with chest pain. Pt reports that he woke up this morning with chest pain that he describes as 9/10 central chest pain that did not radiate anywhere. Sxs were assoc with diaphoresis, SOB and nausea. Pt has a history of CAD with multiple MIs in the past and felt that these sxs were reflective of his past MIs which prompted him to call 911. EKG revealed ST elevation in inferior leads and ST depression in anterior leads. Patient was taken emergently to the cathead operator which revealed 100% acute occlusion /recurrent stent thrombosis of mid RCA along with complete occlusion of the circumflex at the ostium. Completed successful PCI of mid RCA and ostial PDA with 2 ROBBI placed. Patient was transported to ICU in stable condition. Patient has a history of CAD s/p CABG x 2 20 years ago with multiple stents placed. He was admitted to [facility] in September with RCA STEMI. Cardiac cath revealed 100% occlusion of RCA and PCI was successful however no stents were placed and patient was discharged home with medical mgmt and cardio f/u. Patient never followed up with cardiology. Patient continues to smoke 5 cigarettes daily but has no desire to quit at this time. He is recently from his and is under a lot of stress resulting from these life changes. Pt denies fever/ chills, abd pain, bowel or bladder issues, LE edema, calf pain, lightheadedness/ dizziness. Past Medical/Surgical History Medical Problems: (1) CAD (coronary artery disease) of bypass graft Status: Chronic (2) Closed fracture of proximal end of left humerus Status: Resolved (3) COPD (chronic obstructive pulmonary disease) Status: Chronic (4) Depression Status: Chronic (5) DVT (deep venous thrombosis) Status: Resolved (6) History of alcohol abuse Status: Chronic (7) Hypercholesteremia Status: Chronic (8) Hyperlipidemia Status: Chronic (9) Malnutrition Status: Chronic (10) CA (myocardial infarction) Status: Resolved (11) PE (pulmonary embolism) Status: Resolved (12) Peripheral neuropathy Status: Chronic (13) Warfarin anticoagulation Status: Chronic Surgical Problems: (1) 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 Social History Smoking Status: Current Every Day Smoker (5 cigarettes daily x 60 years ) Alcohol Use: 1 whiskey daily Drug Use: none Marital Status: other () Housing status: lives alone Occupational Status: retired Allergies Coded Allergies: No Known Allergies (Unverified , 02/02/16) Home Medications Scheduled Acetaminophen (Tylenol), 650 MG PO Q6 Atorvastatin (Lipitor), 20 MG PO DAILY Calcium/Vitamin D (Os-[place] 500 Plus D), 1 TAB PO BID Clopidogrel (Plavix), 75 MG PO DAILY Cyanocobalamin (Vitamin B-12), 1,000 MCG PO DAILY Ferrous Sulfate (Kp Ferrous Sulfate), 325 TAB PO BID Folic Acid (Folvite), 1 MG PO DAILY Gabapentin (Neurontin), 400 MG PO TID Magnesium Oxide (Mag-Ox), 400 MG PO BID Metoprolol Succ (Toprol Xl) (Toprol-Xl), 12.5 MG PO DAILY Mirtazapine (Mirtazapine), 15 MG PO HS Potassium Chloride Microencaps (Potassium Chloride Er), 20 MEQ PO BID Ramipril (Ramipril), 2.5 MG PO DAILY Ranitidine (Zantac), 150 MG PO DAILY Sertraline (Zoloft), 50 MG PO DAILY Warfarin Sod (Jantoven), 6 MG PO DIRECTED Scheduled PRN Magnesium Hydroxide (Milk of Magnesia), 30 ML PO DAILY PRN for Constipation Review of Systems Constitutional: No chills, No fatigue, No fever, No sweats, No weakness Eyes: No worsening of vision ENT: No hearing loss Respiratory: + shortness of breath, No cough Cardiovascular: + chest pain, No claudication, No edema, No palpitations Abdomen: + nausea, No constipation, No diarrhea, No pain, No vomiting Musculoskeletal: No calf pain, No swelling Genitourinary - Male: No dysuria Neurologic: No weakness Psychiatric: No depression symptoms Endocrine: No fatigue Hematologic / Lymphatic: No abnormal bleeding/bruising Integumentary: No new/changing skin lesions Physical Exam Vital Signs Date Time Temp Pulse Resp B/P Pulse Ox O2 Delivery O2 Flow Rate FiO2 12/04/16 12:15 88 16 154/94 94 Room Air 12/04/16 12:00 88 16 154/95 99 Nasal Cannula 4 12/04/16 10:05 56 22 141/82 12/04/16 10:04 56 20 141/82 96 12/04/16 10:00 48 12/04/16 09:59 Nasal Cannula 2.0 12/04/16 09:55 54 20 148/87 95 Nasal Cannula 2.0 12/04/16 09:55 Nasal Cannula 2.0 General Appearance: WD/WN, no apparent distress, + pertinent finding (Pt is laying comfortably in bed) Head: normocephalic, atraumatic Eyes: normal inspection ENT: hearing grossly normal Neck: supple Respiratory/Chest: chest non-tender, lungs clear, normal breath sounds, no respiratory distress Cardiovascular: regular rate, rhythm, no edema, no murmur Abdomen/GI: normal bowel sounds, non tender, soft Back: normal inspection Extremities/Musculoskelatal: normal inspection, no calf tenderness, no pedal edema Neurologic/Psych: alert, normal mood/affect, oriented x 3 Skin: normal color, warm/dry Diagnostics Laboratory Results Results Past 24 Hours Test 12/04/16 09:35 12/04/16 09:52 Range/Units White Blood Count 8.84 4.8-10.8 K/uL Red Blood Count 5.27 4.7-6.1 M/uL Hemoglobin 16.6 14.0-18.0 g/dL Hematocrit 47.0 42-52 % Mean Corpuscular Volume 89.2 80-100 fL Mean Corpuscular Hemoglobin 31.5 25-34 pg Mean Corpuscular Hemoglobin Concent 35.3 32-36 g/dl Platelet Count 239 130-400 K/uL Mean Platelet Volume 9.9 7.4-10.4 fL Neutrophils (%) (Auto) 41.3 % Lymphocytes (%) (Auto) 41.0 % Monocytes (%) (Auto) 11.8 % Eosinophils (%) (Auto) 5.2 % Basophils (%) (Auto) 0.6 % Neutrophils # (Auto) 3.66 1.4-6.5 K/uL Lymphocytes # (Auto) 3.62 1.2-3.4 K/uL Monocytes # (Auto) 1.04 0.11-0.59 K/uL Eosinophils # (Auto) 0.46 0-0.5 K/uL Basophils # (Auto) 0.05 0-0.2 K/uL RDW Standard Deviation 59.6 36.4-46.3 fL RDW Coefficient of Variation 18.4 11.5-14.5 % Immature Granulocyte % (Auto) 0.1 % Immature Granulocyte # (Auto) 0.01 0.00-0.02 K/uL Prothrombin Time 11.6 9.0-12.0 SECONDS Prothromb Time International Ratio 1.1 0.9-1.1 Activated Partial Thromboplast Time 26.4 21.0-31.0 SECONDS Partial Thromboplastin Ratio 1.0 Sodium Level 133 136-145 mmol/L Potassium Level 3.2 3.5-5.1 mmol/L Chloride Level 99 98-107 mmol/L Carbon Dioxide Level 23 21-32 mmol/L Anion Gap 11.0 3-11 mmol/L Blood Urea Nitrogen 7 7-18 mg/dl Creatinine 1.30 0.60-1.40 mg/dl Est Creatinine Clear Calc Drug Dose 59.7 ml/min Estimated GFR () 64.1 Estimated GFR (Non- 55.3 BUN/Creatinine Ratio 5.7 10-20 Random Glucose 121 70-99 mg/dl Calcium Level 8.7 8.5-10.1 mg/dl Magnesium Level 2.0 1.8-2.4 mg/dl Total Bilirubin 0.9 0.2-1 mg/dl Direct Bilirubin 0.2 0-0.2 mg/dl Aspartate Amino Transf (AST/SGOT) 14 15-37 U/L Alanine Aminotransferase (ALT/SGPT) 10 12-78 U/L Alkaline Phosphatase 116 45-117 U/L Total Creatine Kinase 53 39-308 U/L Creatine Kinase MB 0.9 0.5-3.6 ng/ml Creatine Kinase MB Ratio 1.7 0-3.0 Total Protein 7.7 6.4-8.2 gm/dl Albumin 3.6 3.4-5.0 gm/dl Lipase 166 73-393 U/L Diagnostic Radiology CXR IMPRESSION: No acute process. EKG EKG @0956: sinus juanita at [address] elevation noted in inferior leads and ST depression noted in anterior leads; new findings compared to EKG from EKG @1254: NSR at 69 bpm with T wave inversion and Q waves noted in inferior leads; when compared to EKG from 12/04/16 @0956 ST no longer elevated in inferior leads and ST no longer depressed in anterior leads; T wave inversion and Q waves are now present in inferior leads Impression Assessment and Plan STEMI S/P STENT PLACEMENT pt presented with chest pain assoc with diaphoresis, SOB and nausea -admitted to ICU in stable condition -RFs: CAD s/p CABG and stent placement, Dyslipidemia, tobacco use, increased stress (split from ), age and sex -emergent cardiac cath 12/04/16: complete occlusion RCA and circumflex. Successful PCI with 2 ROBBI placed -cont dual anti-platelet therapy with ASA and ticagrelor while in hospital per cardio--> switch to Plavix (lifelong) upon discharge -cont high dose statin and BB -counseled regarding importance of tobacco cessation -consult cardiology to follow along -monitor closely in ICU HISTORY OF DVT/PE -on chronic Coumadin therapy; previous documentation notes non-compliance -holding Coumadin for now TOBACCO USE -5 cigs per day; not motivated to quit due to stressors at home -counseled regarding importance of smoking cessation DYSLIPIDEMIA -cont high dose statin CODE STATUS -FULL CODE per documentation last admission 2 months ago DISPO Pt seen in collaboration with Dr. Jurado. Please see his addendum for further details. Thanks! -Of note: patient will be followed by Dr. Small starting tomorrow AM. VTE Prophylaxis VTE Risk Assessment Done? Y/N: Yes Risk Level: Moderate Note ATTENDING ADDENDUM Record reviewed. Patient interviewed and examined. Care coordinated with Katherine Hamilton PA-C. Please refer to her documentation for patient's history. Briefly, 71 YO male with history of CAD, DVT, and other problems as noted. Presented to ED with inferior STEMI. Taken to cathead operator for PCI's of RCA and PDA. Admitted to ICU after PCI. Pain-free at time of my assessment. EXAM: General- no distress VS- as noted Neck- no JVD Lungs- clear Heart- RRR, no murmurs or gallops appreciated Abdomen- + BS, soft, nontender Extremities- no pretibial edema or calf tenderness; right groin cath site without hematoma; pedal pulses diminished bilat; capillary refill toes ~ 2 sec; onychomycosis Neuro- alert ASSESSMENT AND PLAN: STEMI, s/p PCI's RCA and PDA. Doing well after cath / PCI. History DVT & PE. Apparent concerns about compliance with meds and medical follow-up. Cardiology follow-up with Dr. Bhagat in [place] (not Dr. Shree Bhagat). Patient uncertain who his PCP is; family may be able to assist with follow-up. Please refer to ELEAZAR Hamilton's documentation for discussion of other issues. Jaret Jurado MD .
[2016-12-04] MEDS: GABAPENTIN 400 MG CAP PO SCH ×2 (15:41→20:18)
[2016-12-04] MEDS: FERROUS SULFATE 325 MG TAB PO SCH (15:42)
[2016-12-04] MEDS ORDERED: POTASSIUM CHLORIDE 10 MEQ TABCR PO ONE (16:45)
[2016-12-04] MEDS: POTASSIUM CHLR 10 MEQ / WTR 10 MEQ in PREMIXED WATER 100 ML IV SCH ×3 (16:55→18:54)
--- NOTE | 2016-12-04 17:06 | ECHOCARDIOGRAM REPORT ---
*NOTICE TO RECEIVING DEMOCRAT AGENCY This information is strictly Confidential and protected under [place] law. [place] law prohibits you from making any further disclosure of this information unless further disclosure is expressly permitted by the written consent of the person to whom it pertains or is authorized by law. A general authorization for the release of medical or other information is not sufficient for this purpose. Hospital accepts no responsibility if the information is made available to any other person, INCLUDING THE PATIENT. Interpretation Summary * Name: NAYELY GIL Study Date: 12/04/2016 03:39 PM BP: 126/70 mmHg * [facility] HR: 65 * : 1945 (M/d/yyyy) Gender: Male Height: 73 in * Age: 71 yrs Ethnicity: CA Weight: 187 lb * Ordering Physician: Jose Ferro * Referring Physician: Self, Referred * Performed By: Shi Roberts RCS * * Reason For Study: HEART ALERT / AMI * BSA: 2.1 m2 * -- Conclusions -- * 1. Normal left ventricular size with mildly reduced systolic function. EF 45-50%. RCA wall motion abnormality, plus or minus circumflex territory. Akinesis of the septal base, base to mid inferior wall, basal inferolateral wall. Hypokinesis of the distal inferior wall and mid inferolateral wall. No significant left ventricular hypertrophy. Type 1 diastolic dysfunction. * 2. Grossly normal right ventricular size with mildly reduced systolic function. * 3. Aortic valve sclerosis mild, without significant aortic valvular stenosis. * 4. Normal estimated right ventricular systolic pressure; RVSP 26 mmHg. * 5. Compared to prior study on 09/20/2016, wall motion and LV systolic function appears similar. Procedure Details * A complete two-dimensional transthoracic echocardiogram was performed (2D, M-mode, Doppler and color flow Doppler). Left Ventricle * Normal left ventricular size with mildly reduced systolic function. EF 45-50%. RCA wall motion abnormality, plus or minus circumflex territory. Akinesis of the septal base, base to mid inferior wall, basal inferolateral wall. Hypokinesis of the distal inferior wall and mid inferolateral wall. No significant left ventricular hypertrophy. Type 1 diastolic dysfunction. Right Ventricle * Grossly normal right ventricular size with mildly reduced systolic function. * The right ventricular systolic function is reduced as assessed by tricuspid annular plane systolic excursion (TAPSE) (TAPSE <1.6 cm). Atria * The left atrial size is normal. * Right atrial size is normal. * There is no evidence of atrial septal defect, but resolution does not allow assessment for a patent foramen ovale. Mitral Valve * The mitral valve is grossly normal. * There is no mitral valve stenosis. * There is trace mitral regurgitation. Tricuspid Valve * The tricuspid valve is not well visualized, but is grossly normal. * There is no tricuspid stenosis. * There is trace tricuspid regurgitation. Aortic Valve * Aortic valve sclerosis mild, without significant aortic valvular stenosis. * No hemodynamically significant valvular aortic stenosis. * There is no significant aortic regurgitation. Pulmonic Valve * The pulmonary valve is inadequately visualized, but the Doppler data is adequate for interpretation. * There is no pulmonic valvular stenosis. * There is no significant pulmonary regurgitation. Great Vessels * The aortic root is normal size. Pericardium/Pleural * There is no pericardial effusion. Great Vessels * IVC normal in size. MMode 2D Measurements and Calculations IVSd 1.1 cm LVIDd 4.6 cm LVIDs 3.5 cm LVPWd 1.1 cm IVS/LVPW 1.0 FS 23.4 % EDV(Teich) 96.9 ml ESV(Teich) 51.5 ml EF(Teich) 46.9 % EDV(cubed) 96.8 ml ESV(cubed) 43.5 ml EF(cubed) 55.0 % LV mass(C)d 176.2 grams LV mass(C)dI 84.3 grams/m\S\2 SV(Teich) 45.4 ml SI(Teich) 21.7 ml/m\S\2 SV(cubed) 53.3 ml SI(cubed) 25.5 ml/m\S\2 Ao root diam 3.7 cm Ao root area 10.5 cm\S\2 ACS 2.1 cm LA dimension 4.6 cm asc Aorta Diam 3.5 cm LA/Ao 1.3 LVOT diam 2.1 cm LVOT area 3.5 cm\S\2 LVAd ap4 30.5 cm\S\2 LVLd ap4 8.2 cm EDV(MOD-sp4) 97.5 ml EDV(sp4-el) 96.6 ml LVAs ap4 20.3 cm\S\2 LVLs ap4 6.8 cm ESV(MOD-sp4) 53.1 ml ESV(sp4-el) 51.8 ml EF(MOD-sp4) 45.5 % EF(sp4-el) 46.4 % LVAd ap2 30.2 cm\S\2 LVLd ap2 8.5 cm EDV(MOD-sp2) 96.0 ml EDV(sp2-el) 91.2 ml LVAs ap2 20.0 cm\S\2 LVLs ap2 7.6 cm ESV(MOD-sp2) 51.3 ml ESV(sp2-el) 44.3 ml EF(MOD-sp2) 46.6 % EF(sp2-el) 51.5 % LVLd %diff 3.3 % EDV(MOD-bp) 97.7 ml LVLs %diff 11.5 % ESV(MOD-bp) 54.0 ml EF(MOD-bp) 44.7 % SV(MOD-sp4) 44.4 ml SI(MOD-sp4) 21.2 ml/m\S\2 SV(MOD-sp2) 44.7 ml SI(MOD-sp2) 21.4 ml/m\S\2 SV(MOD-bp) 43.6 ml SI(MOD-bp) 20.9 ml/m\S\2 SV(sp4-el) 44.8 ml SI(sp4-el) 21.4 ml/m\S\2 SV(sp2-el) 46.9 ml SI(sp2-el) 22.4 ml/m\S\2 Doppler Measurements and Calculations MV E max kirstal 55.0 cm/sec MV A max kristal 73.9 cm/sec MV E/A 0.74 MV P1/2t max kristal 53.0 cm/sec MV P1/2t 143.8 msec MVA(P1/2t) 1.5 cm\S\2 MV dec slope 107.9 cm/sec\S\2 MV dec time 0.26 sec Ao V2 max 81.3 cm/sec Ao max PG 2.6 mmHg Ao max PG (full) 0.26 mmHg CAIO(V,A) 3.3 cm\S\2 CAIO(V,D) 3.3 cm\S\2 LV V1 max PG 2.4 mmHg LV V1 max 77.3 cm/sec TV E max kristal 34.9 cm/sec PA V2 max 88.3 cm/sec PA max PG 3.1 mmHg TR max kristal 240.1 cm/sec RVSP(TR) 26.1 mmHg RAP systole 3.0 mmHg
[2016-12-04] MEDS ORDERED: ACETAMINOPHEN 325 MG TAB PO SCH (18:00)
[2016-12-04] MEDS ORDERED: Integrelin infusion --> STOP ORDER ONE (18:00)
[2016-12-04] MEDS ORDERED: LORAZEPAM 2 MG/ML 1 ML VIAL IV PRN (18:30)
[2016-12-04 20:13] LABS: URINE APPEARANCE CLEAR (CLEAR); URINE BILIRUBIN NEG (NEG); URINE COLOR YELLOW; URINE EPITHELIAL CELL AUTO 0-5 /lpf (0-5); URINE NITRITE NEG (NEG); URINE PH 5.5 (4.5-7.5); URINE SPECIFIC GRAVITY > 1.045 (1.000-1.030); UROBILINOGEN NEG (NEG)
[2016-12-04 20:15] LABS: MANUAL MICROSCOPIC REQUIRED? NO; REVIEW REQ? NO
[2016-12-04] MEDS: CALCIUM 600MG + VIT D 400 IU TAB PO SCH (20:17)
[2016-12-04] MEDS: TICAGRELOR 90 MG TAB PO SCH (20:17)
[2016-12-04] MEDS: MAGNESIUM OXIDE 400 MG TAB PO SCH (20:18)
[2016-12-04] MEDS: MIRTAZAPINE TAB 15 MG TAB PO SCH (20:19)
[2016-12-04] MEDS ORDERED: LORAZEPAM INJ 1 MG in SYRINGE 0.5 ML IV PRN (20:30)
[2016-12-04] MEDS ORDERED: LORAZEPAM INJ 0.5 MG in SYRINGE 0.75 ML IV PRN (20:30)
[2016-12-05] VITALS (25 sets, daily range): BP systolic 91–157; BP diastolic 48–89; PULSE 52–83; TEMP 36.4–37; O2SAT 91–99
[2016-12-05 05:53] LABS: BASO % 0.2 %; BASO ABS # 0.02 K/uL (0-0.2); COMPLETE YES; EOS % 1.5 %; HEMATOCRIT 43.2 % (42-52); IG% 0.1 %; LYMPH % 11.8 %; LYMPH ABS # 1.02 K/uL (1.2-3.4); MEAN CELL VOLUME 90.2 fL (80-100); MEAN CORPUSCULAR HEMOGLOBIN 30.7 pg (25-34); MEAN PLATELET VOLUME 10.3 fL (7.4-10.4); MONO % 8.6 %; NEUT % 77.8 %; PLATELET COUNT 205 K/uL (130-400); RED BLOOD COUNT 4.79 M/uL (4.7-6.1); WHITE BLOOD COUNT 8.62 K/uL (4.8-10.8)
[2016-12-05 06:15] LABS: BUN/CREATININE RATIO 5.1 (10-20); CALCIUM 8.2 mg/dl (8.5-10.1); CREATININE 1.3 mg/dl (0.60-1.40); MAGNESIUM 2.1 mg/dl (1.8-2.4)
[2016-12-05 06:22] LABS: CHOLESTEROL/HDL RATIO 3.4
[2016-12-05 07:05] LABS: ESTIMATED AVERAGE GLUCOSE 103 mg/dl; HA1C FLAG Normal (Normal)
[2016-12-05] MEDS: FERROUS SULFATE 325 MG TAB PO SCH ×2 (07:43→16:24)
[2016-12-05] MEDS: ENALAPRIL MALEATE 10 MG TAB PO SCH (09:00)
[2016-12-05] MEDS: SERTRALINE HCL 50 MG TAB PO SCH (09:35)
[2016-12-05] MEDS: GABAPENTIN 400 MG CAP PO SCH ×3 (09:35→14:02)
[2016-12-05] MEDS: CALCIUM 600MG + VIT D 400 IU TAB PO SCH ×2 (09:35→19:43)
[2016-12-05] MEDS: CYANOCOBALAMIN 500 MCG TAB (VIT B-12) PO SCH (09:36)
[2016-12-05] MEDS: RANITIDINE HCL 150 MG TAB PO SCH (09:36)
[2016-12-05] MEDS: TICAGRELOR 90 MG TAB PO SCH ×2 (09:36→19:42)
[2016-12-05] MEDS: MAGNESIUM OXIDE 400 MG TAB PO SCH ×2 (09:36→19:44)
[2016-12-05] MEDS: ATORVASTATIN 40 MG TAB PO SCH (09:37)
[2016-12-05] MEDS: ASPIRIN 81 MG ECTAB PO SCH (09:37)
[2016-12-05] MEDS: METOPROLOL SUCC 25MG EXT REL TAB PO SCH (09:39)
--- NOTE | 2016-12-05 11:19 | Cardiology Follow-Up ---
Subjective Subjective Date of Service: Dec 05, 2016. Pt evaluation today including: conversation w/ patient, conversation w/ family , physical exam, chart review, lab review, review of studies, review of inpatient medication list Additional Details: No complaints overnight. No recurrent chest pain. Able to void yesterday evening. No events on telemetry. Echo reviewed -- LV function largely unchanged. Problem List Medical Problems: (1) Closed fracture of neck of left humerus Status: Acute (2) Dehydration Status: Acute (3) History of alcohol abuse Status: Chronic (4) Multiple contusions Status: Acute (5) STEMI (ST elevation myocardial infarction) Status: Acute (6) STEMI (ST elevation myocardial infarction) Status: Acute Review of Systems Constitutional: No fever Respiratory: No cough, No shortness of breath Cardiac: No chest pain Abdomen: No nausea, No pain Neurologic: + memory loss Psychiatric: + substance abuse Heme: No abnormal bleeding/bruising Endo: No fatigue Skin: No rash Objective Vital Signs Last Vital Signs Documentation Date Time Temp Pulse Resp B/P Pulse Ox O2 Delivery O2 Flow Rate FiO2 12/05/16 10:00 36.4 61 17 98/48 93 Room Air 12/04/16 12:00 4 Physical Exam: General Appearance: WD/WN, no apparent distress Respiratory/Chest: lungs clear, normal breath sounds, no respiratory distress, + pertinent finding Cardiovascular: regular rate, rhythm, no edema, + systolic murmur (2/6 at LUSB) Abdomen: non tender, soft Extremities: no pedal edema, no calf tenderness, + pertinent finding Neurologic/Psychiatric: alert, normal mood/affect, oriented x 3 Skin: normal color, warm/dry, no rash Lymphatic: no adenopathy Assessment and Plan 1. Inferior STEMI - s/p PCI with ROBBI x2 to mid RCA, ostial PDA 2. Recurrent stent thrombosis -- occurring in the setting of significant instent restenosis(?neoatherosclerosis), distal vessel CAD, med noncompliance 3. History of VTE 4. Ongoing tobacco abuse 5. Significant Alcohol history 6. Major Depression Hemodynamically/electrically stable, CP free, troponin peaking, no significant new LV dysfunction on Echo -- Continue DAPT with ASA/Brillanta --> transition to ASA/Plavix on discharge -- Stressed importance of DAPT going forward with patient and daughter. -- Patient struggles with compliance at home. Suggest discharging on ASA/ plavix alone and stopping coumadin. -- continue high-dose statin, beta-don. Add ALON as BP tolerates. -- From cardiac standpoint Ok for transfer to telemetry. Sage mccallum. Medications: 12/05/16 05:15 Red Blood Count 4.79, Mean Corpuscular Volume 90.2, Mean Corpuscular Hemoglobin 30.7, Mean Corpuscular Hemoglobin Concent 34.0, Mean Platelet Volume 10.3, Neutrophils (%) (Auto) 77.8, Lymphocytes (%) (Auto) 11.8, Monocytes (%) (Auto) 8.6, Eosinophils (%) (Auto) 1.5, Basophils (%) (Auto) 0.2, Neutrophils # (Auto) 6.70, Lymphocytes # (Auto) 1.02, Monocytes # (Auto) 0.74, Eosinophils # (Auto) 0.13, Basophils # (Auto) 0.02 12/05/16 05:15 Test 12/04/16 11:34 12/04/16 14:10 12/04/16 19:48 12/05/16 05:15 Kaolin Activated Coagulation Time 266 SECONDS (94-140) Thyroid Stimulating Hormone (TSH) 1.770 uIu/ml (0.300-4.500) Urine Color YELLOW Urine Appearance CLEAR (CLEAR) Urine pH 5.5 (4.5-7.5) Urine Specific Connelly > 1.045 (1.000-1.030) Urine Protein NEG (NEG) Urine Glucose (UA) NEG (NEG) Urine Ketones NEG (NEG) Urine Occult Blood TRACE (NEG) Urine Nitrite NEG (NEG) Urine Bilirubin NEG (NEG) Urine Urobilinogen NEG (NEG) Urine Leukocyte Esterase NEG (NEG) Urine WBC (Auto) 1-5 /hpf (0-5) Urine RBC (Auto) 0-4 /hpf (0-4) Urine Hyaline Casts (Auto) 1-5 /lpf (0-5) Urine Epithelial Cells (Auto) 0-5 /lpf (0-5) Urine Bacteria (Auto) NEG (NEG) White Blood Count 8.62 K/uL (4.8-10.8) Red Blood Count 4.79 M/uL (4.7-6.1) Hemoglobin 14.7 g/dL (14.0-18.0) Hematocrit 43.2 % (42-52) Mean Corpuscular Volume 90.2 fL (80-100) Mean Corpuscular Hemoglobin 30.7 pg (25-34) Mean Corpuscular Hemoglobin Concent 34.0 g/dl (32-36) Platelet Count 205 K/uL (130-400) Mean Platelet Volume 10.3 fL (7.4-10.4) Neutrophils (%) (Auto) 77.8 % Lymphocytes (%) (Auto) 11.8 % Monocytes (%) (Auto) 8.6 % Eosinophils (%) (Auto) 1.5 % Basophils (%) (Auto) 0.2 % Neutrophils # (Auto) 6.70 K/uL (1.4-6.5) Lymphocytes # (Auto) 1.02 K/uL (1.2-3.4) Monocytes # (Auto) 0.74 K/uL (0.11-0.59) Eosinophils # (Auto) 0.13 K/uL (0-0.5) Basophils # (Auto) 0.02 K/uL (0-0.2) RDW Standard Deviation 61.3 fL (36.4-46.3) RDW Coefficient of Variation 18.6 % (11.5-14.5) Immature Granulocyte % (Auto) 0.1 % Immature Granulocyte # (Auto) 0.01 K/uL (0.00-0.02) Anion Gap 6.0 mmol/L (3-11) Est Creatinine Clear Calc Drug Dose 59.7 ml/min Estimated GFR () 64.1 Estimated GFR (Non- 55.3 BUN/Creatinine Ratio 5.1 (10-20) Calcium Level 8.2 mg/dl (8.5-10.1) Magnesium Level 2.1 mg/dl (1.8-2.4) Troponin I 24.700 ng/ml (0-0.045) Triglycerides Level 150 mg/dl (0-150) Cholesterol Level 125 mg/dl (0-200) HDL Cholesterol 37 mg/dl LDL Cholesterol, Calculated 58 mg/dl VLDL Cholesterol, Calculated 30 mg/dl Cholesterol/HDL Ratio 3.4 Date/Time Source Procedure Growth Status 12/04/16 12:30 Nasal MRSA DNA Surveillance Screen - Final Specimen Negative for MRSA by DNA Probe Complete Lab Results: Current Inpatient Medications Medications (Trade) Dose Ordered Sig/Nieves Route Start Time Stop Time Status Last Admin Dose Admin Atropine Sulfate (Atropine Sulfate 0.1MG/Ml Inj) 0.5 mg ONE PRN IV 12/04/16 12:15 01/03/17 12:14 Ondansetron HCl (Zofran Inj) 4 mg Q6H PRN IV 12/04/16 12:15 01/03/17 12:14 12/04/16 16:46 4 MG Aspirin (Ecotrin Tab) 81 mg QAM PO 12/05/16 09:00 01/04/17 08:59 12/05/16 09:37 81 MG Atorvastatin Calcium (Lipitor Tab) 80 mg QAM PO 12/05/16 09:00 01/04/17 08:59 12/05/16 09:37 80 MG Acetaminophen (Tylenol Tab) 650 mg Q4H PRN PO 12/04/16 12:15 01/03/17 12:14 Calcium/Vitamin D (Caltrate Plus Tab) 1 tab BID PO 12/04/16 21:00 01/03/17 20:59 12/05/16 09:35 1 TAB Cyanocobalamin (Vitamin B-12 Tab) 1,000 mcg DAILY PO 12/05/16 09:00 01/04/17 08:59 12/05/16 09:36 1,000 MCG Folic Acid (Folvite Tab) 1 mg DAILY PO 12/05/16 09:00 01/04/17 08:59 12/05/16 09:37 1 MG Gabapentin (Neurontin Cap) 400 mg TID PO 12/04/16 14:00 01/03/17 13:59 12/05/16 09:35 400 MG Magnesium Hydroxide (Milk Of Magnesia Susp) 30 ml DAILY PRN PO 12/04/16 12:15 01/03/17 12:14 Magnesium Oxide (Mag-Ox Tab) 400 mg BID PO 12/04/16 21:00 01/03/17 20:59 12/05/16 09:36 400 MG Metoprolol Succinate (Toprol Xl Tab) 12.5 mg DAILY PO 12/05/16 09:00 01/04/17 08:59 12/05/16 09:39 12.5 MG Mirtazapine (Remeron Tab) 15 mg HS PO 12/04/16 21:00 01/03/17 20:59 12/04/16 20:19 15 MG Ranitidine HCl (zANTac TAB) 150 mg DAILY PO 12/05/16 09:00 01/04/17 08:59 12/05/16 09:36 150 MG Sertraline HCl (Zoloft Tab) 50 mg DAILY PO 12/05/16 09:00 01/04/17 08:59 12/05/16 09:35 50 MG Ferrous Sulfate (Feosol Tab) 325 mg BIDM PO 12/04/16 16:30 01/03/17 16:29 12/05/16 07:43 325 MG Enalapril Maleate (Vasotec Tab) 10 mg DAILY PO 12/05/16 09:00 01/04/17 08:59 Ticagrelor (Brilinta Cap) 90 mg BID PO 12/04/16 21:00 01/03/17 20:59 12/05/16 09:36 90 MG Lorazepam (Ativan Inj) 1 mg Q4H PRN IV 12/04/16 18:30 01/03/17 18:29 Lorazepam 0.5 mg 0.5 mg Q4H PRN IV 12/04/16 18:30 01/03/17 18:29 Lorazepam 1 mg/ Syringe 1 ml @ 1 mls/min Q4H PRN IV 12/04/16 20:30 01/03/17 20:29 Lorazepam/Syringe (Ativan Inj/ Syringe) 1 ml @ 1 mls/min Q4H PRN IV 12/04/16 20:30 01/03/17 20:29 12/04/16 23:04 1 MLS/MIN
--- NOTE | 2016-12-05 12:09 | CRITICAL CARE PROGRESS NOTE ---
DATE: 12/05/2016 DATE: 12/05/2016. HISTORY OF PRESENT ILLNESS: This is a 71-year-old man with a history of coronary artery disease status post coronary artery bypass grafting surgery and multiple catheterizations and stents since that time. He presented to the Emergency Department on 12/04/2016 with chest pain and was taken to the cardiac catheterization lab where he received 2 drug-eluting stents to the RCA. He had ST segment elevations inferiorly on his EKG prior to that. He was transferred from the cardiac cath lab manager to the intensive care unit on Integrilin, which continued for 6 hours. Yesterday he was chest pain free, but having some difficulty swallowing pills, which resulted in some nausea and vomiting. He may have an esophageal stricture from what I can gather from him. He has had esophageal dilatations in the past. I spoke to his nurse Key today and she reports he has intermittent confusion. Even when I was in the room, he continues to talk about room 308 which may be the room number of where he stayed or lived in the past. Usually he corrects himself eventually and realizes he is in the hospital. He denies feeling tremulous as well as having chest pain or shortness of breath. He was out of bed to a chair yesterday. He did not require Barrientos catheter last night and is able to more completely empty his bladder when he stands to urinate. PHYSICAL EXAMINATION: VITAL SIGNS: Maximum temperature 37, heart rate 57-79, respiratory rate 16-24, blood pressure 91-136/50s to 80s, oxygen saturation 97% on 2 liters nasal cannula. 24-hour fluid balance -100 mL up to midnight yesterday and -500 mL overnight. GENERAL: He is awake, alert and oriented to person and place. LUNGS: Clear to auscultation bilaterally. No rales, rhonchi or wheezes. HEART: Regular rate and rhythm. ABDOMEN: Flat, soft, nondistended, nontender. Active bowel sounds. EXTREMITIES: Warm. No edema. Right groin dressing is clean, dry and intact. The thigh is soft. Dorsalis pedis pulses are 2+ bilaterally. LABORATORY DATA: Sodium 136, potassium 4, chloride 104, CO2 26, BUN 7, creatinine 1.3. Hemoglobin A1c from yesterday 5.2. TSH 1.7, troponin 24.7, white blood cell count 8.62, hemoglobin 14.7, hematocrit 43.2, platelets 205. MEDICATIONS: Acetaminophen, aspirin, Lipitor, calcium with vitamin D, vitamin B12, ferrous sulfate, folic acid, gabapentin, p.r.n. Ativan, milk of magnesia, magnesium oxide, Toprol-XL, mirtazapine, Zofran, Zantac, Zoloft, Brilinta. IMAGING: Portable chest x-ray from this morning was reviewed and shows no acute infiltrate. There is a calcified granuloma in the right lower lobe. IMPRESSION: 1. Status post inferior wall ST segment elevation myocardial infarction and drug-eluting stent x2 to the RCA, doing well. 2. Intermittent confusion which may be related to alcohol withdrawal. He drinks 2-4 drinks per day and tells me this is less than he used to drink. 3. History of chronic obstructive pulmonary disease with ongoing smoking. 4. History of deep venous thrombosis and pulmonary embolism. 5. Malnutrition. 6. Noncompliance versus poor understanding of the importance of his medications. 7. Dysphagia with pills, possible history of esophageal stenosis. PLAN: NEUROLOGIC: Continue to watch for signs of alcohol withdrawal. He has p.r.n. Ativan ordered. Continue B12 and folate. PULMONARY: Wean oxygen and encourage deep breathing. He is not interested in smoking cessation. CARDIOVASCULAR: He is on beta don, ALON inhibitor, statin, Brilinta and aspirin. Plan is to transition him to Plavix and aspirin as an outpatient. He was also on Coumadin but was not getting his INR checked and reportedly had been taking half his prescribed dose. GASTROINTESTINAL: He is eating regular cardiac diet. Could consider GI Consultation but I do not think the GI service would do egd or esophageal dilatation in the face of recent AMI. When I see his daughter, I will try to ask her about it his GI history specifically. RENAL: Creatinine remains at 1.3. Continue to follow s/p cath. Replete electrolytes as needed. 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 He is not presently on any Coumadin. He was getting half his typical dose as an outpatient as his daughter was concerned that he was not getting his INR checked. I will resume Coumadin today. His IV heparin was stopped yesterday. Consideration could be made for a newer anticoagulant and I will leave that to the primary team. INFECTIOUS DISEASE: No acute active issues. MISCELLANEOUS: He has SCDs on when he is in bed. I do not think he needs GI prophylaxis. Physical therapy and occupational therapy will be ordered if they are not ordered already. He is stable for transfer to telemetry and I will sign off at this time. Please call me with any questions or concerns and reconsult if needed. ALFREDO
[2016-12-05 12:41] LABS: INR 1.1 (0.9-1.1); PROTHROMBIN TIME (PATIENT) 11.7 SECONDS (9.0-12.0)
[2016-12-05] MEDS: LORAZEPAM 2 MG/ML 1 ML VIAL IV PRN ×2 (14:11→19:32)
[2016-12-05] MEDS ORDERED: WARFARIN SOD 5 MG TAB PO SCH (16:00)
[2016-12-05] MEDS: WARFARIN SOD 7.5 MG TAB PO SCH (16:25)
[2016-12-05] MEDS ORDERED: GABAPENTIN 600 MG TAB PO SCH (18:15)
[2016-12-05] MEDS ORDERED: LORAZEPAM 2 MG/ML 1 ML VIAL IV PRN (18:15)
--- NOTE | 2016-12-05 18:16 | Progress Note ---
Internal Med Progress Note Date of Service: Dec 05, 2016. Provider Documentation: SUBJECTIVE: pt appears to be confused , no sign of agitation noted denies of any chest pain or SOB -trying to find doctor's name , his medication list on breakfast menu can not tell where he is right now , even after prompting him that he is in hospital several time goes off tangentially -talking about TV channels when asked about his heart condition /previous cardiac caths OBJECTIVE: Vital Signs-as noted below Exam: General-chronically ill appearing , disheveled, confused Eyes-sclera non icteric Neck-no JVD, no thyromegaly Lungs-CTA ,no wheeze or rales Heart-regular S1/S2 Abdomen-soft ,non tender Extremities-rt groin cath site intact , no bleeding or swelling Neuro-no focal neurological deficit , confused, delusional Lab data as noted below. ASSESSMENT & PLAN: STEMI : presented with Chest pain with ST elevation in Inf lead emergent Cardiac cath revealed 100 % occlusion of RCA s/p PTCA of RCA appreciate input form Cardiology pt will cont with dual antiplatelets Aspirin , Plavix high dose statin , beta don , ACEI needs close follow up with Cardiology and Family physician on discharge CONFUSION /METABOLIC ENCEPHALOPATHY : as per Daughter -at baseline -pt has been experiencing forgetful ness , delusion symptom worsened in past 1 year since discharge from [facility] long time hx of Significant ETOH abuse pt sometimes -gets word finding difficulties , confabulate things , makes up strange stories -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 His approx 1 yr back -his ETOH abuse has been getting worse he was found home intoxicated on floor not eating for days Daughter tried to be involve and help with medications -pt does not comply and most of the time does not give accurate information has not had Lab draws done for PT/INR check reports of fall at home pt still continues to drive till now cont monitor neuro checks fall precaution ETOH ABUSE : as per Daughter has been 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 was sober for past 9-10 years lapsed into drinking again as Her mother got Drinks 4-5 beer a day Last drink was day before STEMI -as per daughter caution for withdrawal /DT pt started on Neurontin /Ativan as per ETOH withdrawal protocol TOBACCO ABUSE smoke 1-1/2 jose cig a day -smoked all his life time as per daughter HX OF PE /DVT : was supposed to be on Coumadin doubt compliance INR 1 on presentation given hx of delirium/ETOH abuse /fall /compliance issue poor candidate for fci anticoagulation pt started on Coumadin -will cont while inpatient DYSPHAGIA /HX OF ESOPHAGEAL STRICTURE : as per Daughter -pt has hx of Esophageal stricture -requiring EGD dilatation in past does not follow with any GI difficult to swallow pill -needs pill cutter -which also leads to poor compliance diet changed to mechanical soft crush meds when possible aspiration precaution Speech eval requested DEPRESSION -hx of depression , was seen by Psychiatry team at [facility] -Dr Barker in past was prescribed Zoloft pt has not been taking the meds as per Daughter was on Remeron in past for insomnia /depression Psych eval requested DVT PROPHYLAXIS sub q Heparin /Coumadin DISPOSITION cont to monitor in ICU tonight to assess possible ETOH withdrawal symptom possible tx to PCU tomorrow if no Withdrawal noted Difficult discharge planning : pt appears to not able to do self care -baseline dementia -daughter reports of forgetfulness , delirium on and off for past 1 yr ongoing ETOH abuse , does not eat for days unable to take medications due to dementia /intoxication Daughter tries to help , but pt's non compliance , ETOH abuse -makes caring very difficult form his repeated admission with STEMI ( Sep 2016 /this Admission ) possible due to poor compliance , tobacco and ETOH abuse with significant underlying CAD very poor prognosis will order PT/OT eval will benefit form SNF after discharge from [facility] need office of Aging to be involve -to assess pt's living situation and safety Social service consulted for discharge planning D/w Daughter Conchita -given update ordered for medical record from His cardiology at [place] and Family Physician at [facility] Vital Signs: Date Time Temp Pulse Resp B/P Pulse Ox O2 Delivery O2 Flow Rate FiO2 12/05/16 18:00 36.7 56 21 123/77 96 Room Air 12/05/16 16:00 36.7 59 19 135/68 94 Room Air 12/05/16 16:00 Room Air 12/05/16 14:00 36.7 60 20 108/58 91 Room Air 12/05/16 12:00 36.7 71 20 133/78 95 Room Air 12/05/16 12:00 Room Air 12/05/16 10:00 36.4 61 17 98/48 93 Room Air 12/05/16 08:00 36.4 62 18 117/56 93 Room Air 12/05/16 08:00 Room Air 12/05/16 06:00 57 19 12/05/16 05:59 79 24 108/75 12/05/16 05:00 67 18 12/05/16 04:11 97 Room Air 12/05/16 04:00 57 17 12/05/16 03:59 37.0 64 17 91/56 12/05/16 03:00 58 16 12/05/16 02:00 63 23 12/05/16 01:59 52 22 117/54 12/05/16 01:00 58 18 93 12/05/16 00:13 97 Room Air 12/05/16 00:00 61 16 95 12/04/16 23:59 54 13 98/53 94 12/04/16 23:00 61 16 98 12/04/16 22:59 64 17 136/80 99 12/04/16 22:00 54 22 99 12/04/16 21:21 59 16 138/75 97 12/04/16 20:29 74 19 139/79 97 12/04/16 20:00 36.9 58 14 97 12/04/16 20:00 97 Room Air 12/04/16 19:59 66 23 121/66 97 12/04/16 19:29 67 16 114/67 97 12/04/16 19:00 59 16 Lab Results: Results Past 24 Hours Test 12/04/16 19:48 12/04/16 22:26 12/05/16 05:15 12/05/16 11:22 Range/Units Urine Color YELLOW Urine Appearance CLEAR CLEAR Urine pH 5.5 4.5-7.5 Urine Specific [place] > 1.045 1.000-1.030 Urine Protein NEG NEG Urine Glucose (UA) NEG NEG Urine Ketones NEG NEG Urine Occult Blood TRACE NEG Urine Nitrite NEG NEG Urine Bilirubin NEG NEG Urine Urobilinogen NEG NEG Urine Leukocyte Esterase NEG NEG Urine WBC (Auto) 1-5 0-5 /hpf Urine RBC (Auto) 0-4 0-4 /hpf Urine Hyaline Casts (Auto) 1-5 0-5 /lpf Urine Epithelial Cells (Auto) 0-5 0-5 /lpf Urine Bacteria (Auto) NEG NEG Troponin I 23.900 24.700 15.800 0-0.045 ng/ml White Blood Count 8.62 4.8-10.8 K/uL Red Blood Count 4.79 4.7-6.1 M/uL Hemoglobin 14.7 14.0-18.0 g/dL Hematocrit 43.2 42-52 % Mean Corpuscular Volume 90.2 80-100 fL Mean Corpuscular Hemoglobin 30.7 25-34 pg Mean Corpuscular Hemoglobin Concent 34.0 32-36 g/dl Platelet Count 205 130-400 K/uL Mean Platelet Volume 10.3 7.4-10.4 fL Neutrophils (%) (Auto) 77.8 % Lymphocytes (%) (Auto) 11.8 % Monocytes (%) (Auto) 8.6 % Eosinophils (%) (Auto) 1.5 % Basophils (%) (Auto) 0.2 % Neutrophils # (Auto) 6.70 1.4-6.5 K/uL Lymphocytes # (Auto) 1.02 1.2-3.4 K/uL Monocytes # (Auto) 0.74 0.11-0.59 K/uL Eosinophils # (Auto) 0.13 0-0.5 K/uL Basophils # (Auto) 0.02 0-0.2 K/uL RDW Standard Deviation 61.3 36.4-46.3 fL RDW Coefficient of Variation 18.6 11.5-14.5 % Immature Granulocyte % (Auto) 0.1 % Immature Granulocyte # (Auto) 0.01 0.00-0.02 K/uL Sodium Level 136 136-145 mmol/L Potassium Level 4.0 3.5-5.1 mmol/L Chloride Level 104 98-107 mmol/L Carbon Dioxide Level 26 21-32 mmol/L Anion Gap 6.0 3-11 mmol/L Blood Urea Nitrogen 7 7-18 mg/dl Creatinine 1.30 0.60-1.40 mg/dl Est Creatinine Clear Calc Drug Dose 59.7 ml/min Estimated GFR () 64.1 Estimated GFR (Non- 55.3 BUN/Creatinine Ratio 5.1 10-20 Random Glucose 103 70-99 mg/dl Calcium Level 8.2 8.5-10.1 mg/dl Magnesium Level 2.1 1.8-2.4 mg/dl Triglycerides Level 150 0-150 mg/dl Cholesterol Level 125 0-200 mg/dl HDL Cholesterol 37 mg/dl LDL Cholesterol, Calculated 58 mg/dl VLDL Cholesterol, Calculated 30 mg/dl Cholesterol/HDL Ratio 3.4 Test 12/05/16 12:23 Range/Units Prothrombin Time 11.7 9.0-12.0 SECONDS Prothromb Time International Ratio 1.1 0.9-1.1
[2016-12-05] MEDS ORDERED: GABAPENTIN 1200MG LOADING DOSE PO SCH (19:00)
[2016-12-05] MEDS: THIAMINE HCL 100 MG TAB PO SCH (19:40)
[2016-12-05] MEDS: MIRTAZAPINE TAB 15 MG TAB PO SCH (19:45)
[2016-12-05 22:06] LABS: BENZODIAZEPINE, URINE POS (NEG); COCAINE,URINE NEG (NEG); PHENCYCLIDINE, URINE NEG (NEG)
[2016-12-06] VITALS (19 sets, daily range): BP systolic 92–145; BP diastolic 55–78; PULSE 58–74; TEMP 36.4–37.1; O2SAT 93–99
[2016-12-06] MEDS: GABAPENTIN 600MG Q6H DOSE PO SCH ×2 (00:42→07:54)
[2016-12-06 06:01] LABS: BASO % 0.5 %; BASO ABS # 0.04 K/uL (0-0.2); COMPLETE YES; HEMATOCRIT 42.1 % (42-52); IG% 0.3 %; LYMPH % 15.1 %; MEAN CELL VOLUME 88.4 fL (80-100); MEAN CORPUSCULAR HEMOGLOBIN 30.7 pg (25-34); MEAN CORPUSCULAR HGB CONC 34.7 g/dl (32-36); MEAN PLATELET VOLUME 9.9 fL (7.4-10.4); MONO % 9.5 %; NEUT % 70.6 %; PLATELET COUNT 189 K/uL (130-400); RED BLOOD COUNT 4.76 M/uL (4.7-6.1)
[2016-12-06 06:35] LABS: BUN/CREATININE RATIO 5.1 (10-20); CALCIUM 8.4 mg/dl (8.5-10.1); CREATININE 1.3 mg/dl (0.60-1.40); POTASSIUM 3.7 mmol/L (3.5-5.1)
[2016-12-06 06:40] LABS: ALB/GLOB RATIO 0.8 (0.9-2)
[2016-12-06] MEDS: FERROUS SULFATE 325 MG TAB PO SCH ×2 (07:54→15:22)
[2016-12-06] MEDS ORDERED: POTASSIUM CHLORIDE 20MEQ/15ML 473ML PO ONE (08:00)
[2016-12-06] MEDS: RANITIDINE HCL 150 MG TAB PO SCH (09:20)
[2016-12-06] MEDS: ATORVASTATIN 40 MG TAB PO SCH (09:21)
[2016-12-06] MEDS: METOPROLOL SUCC 25MG EXT REL TAB PO SCH (09:21)
[2016-12-06] MEDS: CALCIUM 600MG + VIT D 400 IU TAB PO SCH ×2 (09:22→20:29)
[2016-12-06] MEDS: SERTRALINE HCL 50 MG TAB PO SCH (09:22)
[2016-12-06] MEDS: TICAGRELOR 90 MG TAB PO SCH ×2 (09:22→20:29)
[2016-12-06] MEDS: MAGNESIUM OXIDE 400 MG TAB PO SCH ×2 (09:23→20:29)
[2016-12-06] MEDS: CYANOCOBALAMIN 500 MCG TAB (VIT B-12) PO SCH (09:23)
[2016-12-06] MEDS: ASPIRIN 81 MG ECTAB PO SCH (09:23)
[2016-12-06] MEDS: THIAMINE HCL 100 MG TAB PO SCH (09:24)
[2016-12-06] MEDS: ENALAPRIL MALEATE 10 MG TAB PO SCH (09:25)
[2016-12-06] MEDS ORDERED: NURSING VERBAL MED ORDER ONE (10:00)
--- NOTE | 2016-12-06 11:48 | Cardiology Follow-Up ---
Subjective Subjective Date of Service: Dec 06, 2016. Pt evaluation today including: conversation w/ patient, physical exam, chart review, lab review, review of studies, review of inpatient medication list Additional Details: Patient denies any chest pain this morning. Confused, states he is here to learn karate Confusion, agitation overnight. No events on telemetry Repeat ECG with TWI inversion inferolaterally Problem List Medical Problems: (1) Closed fracture of neck of left humerus Status: Acute (2) Dehydration Status: Acute (3) History of alcohol abuse Status: Chronic (4) Multiple contusions Status: Acute (5) STEMI (ST elevation myocardial infarction) Status: Acute (6) STEMI (ST elevation myocardial infarction) Status: Acute Review of Systems Constitutional: No fever Respiratory: No shortness of breath Cardiac: No chest pain Abdomen: No nausea, No pain Neurologic: + memory loss, + problem reported (Confusion) Psychiatric: + substance abuse Heme: No abnormal bleeding/bruising Endo: No fatigue Skin: No rash Objective Vital Signs Last Vital Signs Documentation Date Time Temp Pulse Resp B/P Pulse Ox O2 Delivery O2 Flow Rate FiO2 12/06/16 09:50 36.6 64 20 145/78 96 Room Air 12/04/16 12:00 4 Physical Exam: General Appearance: WD/WN, no apparent distress Respiratory/Chest: lungs clear, normal breath sounds, no respiratory distress Cardiovascular: regular rate, rhythm, no edema, + systolic murmur (2/6 at LUSB) Abdomen: non tender, soft Extremities: no pedal edema, no calf tenderness, + pertinent finding (right femoral access site - no hematoma, bruits or ecchymosis. Mildly tender) Neurologic/Psychiatric: alert, + disoriented, + pertinent finding (Confused , AOx1) Skin: warm/dry, no rash Lymphatic: no adenopathy Assessment and Plan 1. Inferior STEMI - s/p PCI with ROBBI x2 to mid RCA, ostial PDA 2. Recurrent stent thrombosis -- occurring in the setting of significant instent restenosis(?neoatherosclerosis), distal vessel CAD, med noncompliance 3. History of VTE 4. Ongoing tobacco abuse 5. Alcohol abuse, withdrawal 6. Hyponatremia Remains chest pain free, hemodynamically/electrically stable. TWI on ECG overnight - low suspicion represents acute stent thrombosis. question some demand ischemia in the setting of known chronically occluded circumflex system vs evolving AR. -- Continue DAPT with ASA/Brillanta --> transition to ASA/Plavix on discharge - Prior to discharge will need to be loaded on Plavix 300mg -- Stressed importance of DAPT going forward with patient -- Agree with discontinuing coumadin long-term -- continue high-dose statin, beta-don and ALON -- Appreciate hospital medicine team care. Alcohol withdrawal treatment per medicine. -- From a cardiac standpoint OK for discharge when medical issues/disposition resolved. Medications: Current Inpatient Medications Medications (Trade) Dose Ordered Sig/Nieves Route Start Time Stop Time Status Last Admin Dose Admin Atropine Sulfate (Atropine Sulfate 0.1MG/Ml Inj) 0.5 mg ONE PRN IV 12/04/16 12:15 01/03/17 12:14 Ondansetron HCl (Zofran Inj) 4 mg Q6H PRN IV 12/04/16 12:15 01/03/17 12:14 12/04/16 16:46 4 MG Aspirin (Ecotrin Tab) 81 mg QAM PO 12/05/16 09:00 01/04/17 08:59 12/06/16 09:23 81 MG Atorvastatin Calcium (Lipitor Tab) 80 mg QAM PO 12/05/16 09:00 01/04/17 08:59 12/06/16 09:21 80 MG Acetaminophen (Tylenol Tab) 650 mg Q4H PRN PO 12/04/16 12:15 01/03/17 12:14 Calcium/Vitamin D (Caltrate Plus Tab) 1 tab BID PO 12/04/16 21:00 01/03/17 20:59 12/06/16 09:22 1 TAB Cyanocobalamin (Vitamin B-12 Tab) 1,000 mcg DAILY PO 12/05/16 09:00 01/04/17 08:59 12/06/16 09:23 1,000 MCG Folic Acid (Folvite Tab) 1 mg DAILY PO 12/05/16 09:00 01/04/17 08:59 12/06/16 09:24 1 MG Gabapentin (Neurontin Cap) 400 mg TID PO 12/04/16 14:00 01/03/17 13:59 Future hold 12/05/16 09:35 400 MG Magnesium Hydroxide (Milk Of Magnesia Susp) 30 ml DAILY PRN PO 12/04/16 12:15 01/03/17 12:14 Magnesium Oxide (Mag-Ox Tab) 400 mg BID PO 12/04/16 21:00 01/03/17 20:59 12/06/16 09:23 400 MG Metoprolol Succinate (Toprol Xl Tab) 12.5 mg DAILY PO 12/05/16 09:00 01/04/17 08:59 12/06/16 09:21 12.5 MG Mirtazapine (Remeron Tab) 15 mg HS PO 12/04/16 21:00 01/03/17 20:59 12/05/16 19:45 15 MG Ranitidine HCl (zANTac TAB) 150 mg DAILY PO 12/05/16 09:00 01/04/17 08:59 12/06/16 09:20 150 MG Sertraline HCl (Zoloft Tab) 50 mg DAILY PO 12/05/16 09:00 01/04/17 08:59 12/06/16 09:22 50 MG Ferrous Sulfate (Feosol Tab) 325 mg BIDM PO 12/04/16 16:30 01/03/17 16:29 12/06/16 07:54 325 MG Enalapril Maleate (Vasotec Tab) 10 mg DAILY PO 12/05/16 09:00 01/04/17 08:59 12/06/16 09:25 10 MG Ticagrelor (Brilinta Cap) 90 mg BID PO 12/04/16 21:00 01/03/17 20:59 12/06/16 09:22 90 MG Lorazepam (Ativan Inj) 1 mg Q4H PRN IV 12/04/16 18:30 01/03/17 18:29 12/05/16 19:32 1 MG Lorazepam 0.5 mg 0.5 mg Q4H PRN IV 12/04/16 18:30 01/03/17 18:29 Lorazepam 1 mg/ Syringe 1 ml @ 1 mls/min Q4H PRN IV 12/04/16 20:30 01/03/17 20:29 Lorazepam/Syringe (Ativan Inj/ Syringe) 1 ml @ 1 mls/min Q4H PRN IV 12/04/16 20:30 01/03/17 20:29 12/04/16 23:04 1 MLS/MIN Warfarin Sodium (Coumadin Tab) 7.5 mg DAILY@16 PO 12/05/16 16:00 01/04/17 15:59 12/05/16 16:25 7.5 MG Thiamine HCl (Vitamin B-1 Tab) 100 mg DAILY PO 12/05/16 18:18 01/04/17 18:17 12/06/16 09:24 100 MG Lorazepam (Ativan Inj) 1 mg ONE PRN IV 12/05/16 18:15 Gabapentin (Neurontin Tab) 600 mg Q8H PO 12/06/16 16:00 12/07/16 08:01 Gabapentin (Neurontin Tab) 600 mg Q12H PO 12/07/16 20:00 12/08/16 08:01 Gabapentin (Neurontin Tab) 600 mg Q24H PO 12/09/16 08:00 12/09/16 08:01 Enteral Nutritional Formula (Boost) 1 can BID PO 12/06/16 09:00 01/05/17 08:59 Docusate Sodium (coLACE SYRUP) 100 mg BID PO 12/06/16 21:00 01/05/17 20:59 UNV Lab Results: 12/06/16 05:30 Red Blood Count 4.76, Mean Corpuscular Volume 88.4, Mean Corpuscular Hemoglobin 30.7, Mean Corpuscular Hemoglobin Concent 34.7, Mean Platelet Volume 9.9, Neutrophils (%) (Auto) 70.6, Lymphocytes (%) (Auto) 15.1, Monocytes (%) (Auto) 9.5, Eosinophils (%) (Auto) 4.0, Basophils (%) (Auto) 0.5, Neutrophils # (Auto) 5.16, Lymphocytes # (Auto) 1.10, Monocytes # (Auto) 0.69, Eosinophils # (Auto) 0.29, Basophils # (Auto) 0.04 12/06/16 05:30 Test 12/06/16 05:30 12/06/16 06:28 12/06/16 11:46 White Blood Count 7.30 K/uL (4.8-10.8) Red Blood Count 4.76 M/uL (4.7-6.1) Hemoglobin 14.6 g/dL (14.0-18.0) Hematocrit 42.1 % (42-52) Mean Corpuscular Volume 88.4 fL (80-100) Mean Corpuscular Hemoglobin 30.7 pg (25-34) Mean Corpuscular Hemoglobin Concent 34.7 g/dl (32-36) Platelet Count 189 K/uL (130-400) Mean Platelet Volume 9.9 fL (7.4-10.4) Neutrophils (%) (Auto) 70.6 % Lymphocytes (%) (Auto) 15.1 % Monocytes (%) (Auto) 9.5 % Eosinophils (%) (Auto) 4.0 % Basophils (%) (Auto) 0.5 % Neutrophils # (Auto) 5.16 K/uL (1.4-6.5) Lymphocytes # (Auto) 1.10 K/uL (1.2-3.4) Monocytes # (Auto) 0.69 K/uL (0.11-0.59) Eosinophils # (Auto) 0.29 K/uL (0-0.5) Basophils # (Auto) 0.04 K/uL (0-0.2) RDW Standard Deviation 59.7 fL (36.4-46.3) RDW Coefficient of Variation 18.6 % (11.5-14.5) Immature Granulocyte % (Auto) 0.3 % Immature Granulocyte # (Auto) 0.02 K/uL (0.00-0.02) Anion Gap 6.0 mmol/L (3-11) Est Creatinine Clear Calc Drug Dose 59.7 ml/min Estimated GFR () 64.1 Estimated GFR (Non- 55.3 BUN/Creatinine Ratio 5.1 (10-20) Calcium Level 8.4 mg/dl (8.5-10.1) Magnesium Level 2.0 mg/dl (1.8-2.4) Total Bilirubin 1.0 mg/dl (0.2-1) Aspartate Amino Transf (AST/SGOT) 31 U/L (15-37) Alanine Aminotransferase (ALT/SGPT) 11 U/L (12-78) Alkaline Phosphatase 93 U/L (45-117) Total Protein 6.3 gm/dl (6.4-8.2) Albumin 2.8 gm/dl (3.4-5.0) Globulin 3.5 gm/dl (2.5-4.0) Albumin/Globulin Ratio 0.8 (0.9-2) Bedside Glucose 95 mg/dl (70-99)
--- NOTE | 2016-12-06 11:50 | CRITICAL CARE PROGRESS NOTE ---
DATE: 12/06/2016 SUBJECTIVE: There were no acute events overnight. The patient was placed on the alcohol withdrawal protocol last evening and he received 1 mg of Ativan around 07:30. He had a sitter with him over the night and is clearly confused today when I talked to him, but not agitated. He told me that he wants to start wrestling and that he has 2 weeks until practices start. 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 He denies chest pain and shortness of breath. He has not had any difficulty taking his pills when they are cut into smaller pieces. He has not had a bowel movement since admission. PHYSICAL EXAMINATION: VITAL SIGNS: Temperature 36.8, heart rate 60s, respiratory rate 16, blood pressure 91-157/60s-80s, and oxygen saturation 92% on room air. 24-hour fluid balance is -120 mL. GENERAL: On exam, he is awake, alert and able to speak in full sentences. He moves about the bed somewhat weakly and is in no acute distress. NEUROLOGIC: He is oriented to person and place. He follows commands, moving all 4 extremities. He knows it is November. LUNGS: Clear to auscultation bilaterally. No rales, rhonchi or wheezes. HEART: Regular rate and rhythm. ABDOMEN: Flat, soft, nondistended, and nontender. Active bowel sounds. EXTREMITIES: Warm. No edema. Right groin site clean, dry and intact. LABORATORY DATA: White blood cell count 7.3, hemoglobin 14.6, hematocrit 42.1, and platelets 189. Sodium 133, potassium 3.7, chloride 102, CO2 of 25, BUN 7, and creatinine 1.3. Albumin 2.8. PT/INR pending. MEDICATIONS: Acetaminophen, aspirin, Lipitor, calcium, vitamin B12, Vasotec, Boost, ferrous sulfate, folic acid, gabapentin, Ativan, milk of magnesia, magnesium oxide, metoprolol, mirtazapine, Zofran, Zantac, sertraline, thiamin, Brilinta and Coumadin. IMPRESSION: 1. Status post acute inferior wall ST segment elevation myocardial infarction and drug-eluting stent x2 to the RCA. 2. Alcohol withdrawal syndrome. 3. History of chronic obstructive pulmonary disease and tobacco use. 4. History of deep venous thrombosis and pulmonary embolism. 5. Malnutrition, now on Boost supplements. 6. Noncompliance. 7. Dysphagia with pills. 8. Alcohol abuse. PLAN: NEUROLOGIC: Continue alcohol withdrawal protocol. He seems to be doing well and a sitter was discontinued this morning. Continue vitamin supplementation. I see that the psychiatry service has been consulted as well. PULMONARY: Encourage smoking cessation. CARDIOVASCULAR: Continue beta don, ALON inhibitor, statin, Brilinta and aspirin. Continue Coumadin and determine whether or not he is safe to be fully anticoagulated on discharge. GASTROINTESTINAL: Continue H2 don for GI prophylaxis. RENAL: Follow creatinine, stable at 1.3 and I ordered him potassium. HEMATOLOGY: He is now on Coumadin. PT/INR daily and adjust as needed. MISCELLANEOUS: Physical therapy and occupational therapy. I suspect he may need to go to a skilled facility for a period of time. He has already been transferred from the intensive care unit. Please call me with any questions or concerns. ALFREDO
[2016-12-06 12:12] LABS: INR 1.1 (0.9-1.1); PROTHROMBIN TIME (PATIENT) 12.1 SECONDS (9.0-12.0)
[2016-12-06] MEDS: WARFARIN SOD 7.5 MG TAB PO SCH (15:21)
[2016-12-06] MEDS: GABAPENTIN 600MG Q8H DOSE PO SCH ×2 (15:21→23:15)
--- NOTE | 2016-12-06 17:30 | Psychiatric Consultation ---
Consultation Identifying Data Sven Chavez is a 71 year old male with h/o depression treated by his pcp, who was admitted to [facility] after presented to ER for chest pain. Psychiatry was consulted for depression Status post acute inferior wall ST segment elevation myocardial infarction and drug-eluting stent x2 to the RCA. Chief Complaint "doing ok". History of Present Illness Pt was admitted for similar presentation in September 2016 and was seen for a psych consult by Dr. Barker. Pt is a poor historian secondary to confusion that appears to fluctuate through the day, likely delirium related. Pt has been drinking daily, 3-4 drinks of liquor a day per pt report. He has been rx'd remeron 15mg hs and Zoloft 50mg a day with daughter helping to dispense a weekly supply of his various meds to him for past 2 months, however he ran out of the Zoloft about a month ago and she still has been giving him the remeron.. She is unclear about his med compliance prior to 2 months ago and is not able to be certain if taking his meds fully lately as well. She shared that he had indicated feeling less depressed lately and daughter wonders if this is tied to him being more from his estranged a they were previously tried to spend time together. She has been finding it difficult to get him to attend outpt doctors appts recently. Pt denied SI, denied h/o suicidal behaviors, denied HI. Unable to clarify recent levels of depressive symptoms with pt today as even during better moments his mental status was still impaired enough to limit his ability to answer questions. His nurse reported agitation last night that needed a sitter to help contain and some fluctuates today with at times not knowing his name and thinking was at home. he was able to tell this property underwriter that he was "[facility] a psychology [facility]" and that it was November 2016 but was unable to give the correct date or day fo the week. Mini-cog was with him able to repeat the 3 words but with getting only 1 correct on recall (1 point) and 0 points for the clock. total 1 point. Pt continues to smoke cigs and indicated a wish that could smoke. He indicated not being invested in remeron or zoloft but could not elaborate. Daughter shared how he was hiding his drinking from her. Daughter has a POA. was eating pudding and then his dinner (sandwich) during the assessment, appeared to be enjoying the food. Past Medical/Surgical History History of Obesity: No History of Diabetes: No History of Heart Disease: Yes History of Dyslipidemia: Yes Problem List: Status post acute inferior wall ST segment elevation myocardial infarction and drug-eluting stent x2 to the RCA. PAST MEDICAL HISTORY: 1. Coronary artery disease 2. 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 3. Hyperlipidemia. 4. Prior history of bradycardia and hypotension, although has been asymptomatic. 5. Ongoing tobacco use. Allergies Allergies: Coded Allergies: No Known Allergies (Unverified , 02/02/16) Home Medications Scheduled Acetaminophen (Tylenol), 650 MG PO Q6 Atorvastatin (Lipitor), 20 MG PO DAILY Calcium/Vitamin D (Os-Lowell 500 Plus D), 1 TAB PO BID Clopidogrel (Plavix), 75 MG PO DAILY Cyanocobalamin (Vitamin B-12), 1,000 MCG PO DAILY Ferrous Sulfate (Kp Ferrous Sulfate), 325 TAB PO BID Folic Acid (Folvite), 1 MG PO DAILY Gabapentin (Neurontin), 400 MG PO TID Magnesium Oxide (Mag-Ox), 400 MG PO BID Metoprolol Succ (Toprol Xl) (Toprol-Xl), 12.5 MG PO DAILY Mirtazapine (Mirtazapine), 15 MG PO HS Potassium Chloride Microencaps (Potassium Chloride Er), 20 MEQ PO BID Ramipril (Ramipril), 2.5 MG PO DAILY Ranitidine (Zantac), 150 MG PO DAILY Sertraline (Zoloft), 50 MG PO DAILY Warfarin Sod (Jantoven), 6 MG PO DIRECTED Scheduled PRN Magnesium Hydroxide (Milk of Magnesia), 30 ML PO DAILY PRN for Constipation Family History Patient reports no known family medical history. Alcohol Use Alcohol Use In Past 12 Months: Yes daily 3-4 drinks of liquor a day per pt Personal History Relationship History: Additional Comments: limited social history due to presentation living in the [place] in [place] daughter has a POA from his Review of Systems Constitutional: other (not fully oriented, levels varied ) Cardiovascular: reports: chest pain (pt denied but chief complaint ) Respiratory: denies: SHERIFF, PND, cough, cyanosis, no symptoms reported, orthopnea , other, see HPI, short of breath, sputum production, stridor, wheezing Gastrointestinal: denies no symptoms reported, denies see HPI, denies abdominal pain, denies constipation, denies diarrhea, denies nausea, denies vomiting, denies other Neurologic: reports: other (confusioon) Examination Vital Signs Vital Signs Past 12 Hours Date Time Temp Pulse Resp B/P Pulse Ox O2 Delivery O2 Flow Rate FiO2 12/06/16 16:00 Room Air 12/06/16 15:45 37.1 58 16 92/55 95 Room Air 12/06/16 12:06 37.0 62 16 95/60 94 Room Air 12/06/16 12:00 Room Air 12/06/16 09:50 36.6 64 20 145/78 96 Room Air 12/06/16 08:00 36.7 71 22 125/71 94 Room Air 12/06/16 08:00 Room Air 12/06/16 06:00 65 16 93 12/06/16 05:59 36.7 62 16 97/61 94 Laboratory Results Last 24 Hours Test 12/06/16 05:30 12/06/16 06:28 12/06/16 11:52 White Blood Count 7.30 K/uL Red Blood Count 4.76 M/uL Hemoglobin 14.6 g/dL Hematocrit 42.1 % Mean Corpuscular Volume 88.4 fL Mean Corpuscular Hemoglobin 30.7 pg Mean Corpuscular Hemoglobin Concent 34.7 g/dl Platelet Count 189 K/uL Mean Platelet Volume 9.9 fL Neutrophils (%) (Auto) 70.6 % Lymphocytes (%) (Auto) 15.1 % Monocytes (%) (Auto) 9.5 % Eosinophils (%) (Auto) 4.0 % Basophils (%) (Auto) 0.5 % Neutrophils # (Auto) 5.16 K/uL Lymphocytes # (Auto) 1.10 K/uL Monocytes # (Auto) 0.69 K/uL Eosinophils # (Auto) 0.29 K/uL Basophils # (Auto) 0.04 K/uL RDW Standard Deviation 59.7 fL RDW Coefficient of Variation 18.6 % Immature Granulocyte % (Auto) 0.3 % Immature Granulocyte # (Auto) 0.02 K/uL Sodium Level 133 mmol/L Potassium Level 3.7 mmol/L Chloride Level 102 mmol/L Carbon Dioxide Level 25 mmol/L Anion Gap 6.0 mmol/L Blood Urea Nitrogen 7 mg/dl Creatinine 1.30 mg/dl Est Creatinine Clear Calc Drug Dose 59.7 ml/min Estimated GFR () 64.1 Estimated GFR (Non- 55.3 BUN/Creatinine Ratio 5.1 Random Glucose 86 mg/dl Calcium Level 8.4 mg/dl Magnesium Level 2.0 mg/dl Total Bilirubin 1.0 mg/dl Aspartate Amino Transf (AST/SGOT) 31 U/L Alanine Aminotransferase (ALT/SGPT) 11 U/L Alkaline Phosphatase 93 U/L Total Protein 6.3 gm/dl Albumin 2.8 gm/dl Globulin 3.5 gm/dl Albumin/Globulin Ratio 0.8 Bedside Glucose 95 mg/dl Prothrombin Time 12.1 SECONDS Prothromb Time International Ratio 1.1 Mental Examination During interview pt is: cooperative, other (alert but not oriented see hpi ) Appearance: other (hospital gown) Eye contact is: poor Motor behavior is: other (laying ni hospital bed upright, eating ) Speech: normal in rate, rhythm & volume Affect: blunted Mood is: other (okay) Thought process: concrete, other (not fully clear nor coherent) Thought content: cognitive distortions Suicidal thought are: denied Homicidal thoughts are: denied Hallucinations: denies auditory, denies visual Cognition: other (all spheres impaired ) Intelligence estimated to be: other (possible average, acute mental state limiting assessment) Insight: severely impaired Judgement: severely impaired Impression / Recommendations Impression depression, alcohol use disorder, med complaince issues, nicotine dependence with medical conditions worsened by alcohol and smoking Risk Factors Assessment Male: Yes : Yes Mental Health Diagnoses: Yes Substance use disorders: Yes Previous attempt: No Smoker: Yes Recommendations (1) Depression 12/06 - spoke to daughter by phone to clarify recent medication usage and documented in HPI - continue remeron 15mg hs and zoloft 50mg daily, -encourage appropriate aftercare appts with PCP and see about f/u with therapist and psychiatrist (pt mental status impacting addressing this in today' s assessment, with pt declining psychiatrist and therapist in September 2016 psych consult) -recommend to encourage abstinence of alcohol and addressing alcohol use disorder and to encourage smoking cessation (2) Alcohol use disorder -continue current alcohol withdrawal protocols including gabapentin taper and ativan prn -encourage abstinence and related treatment options
[2016-12-06] MEDS: DOCUSATE SODIUM 100 MG/10 ML UDC PO SCH (20:29)
[2016-12-06] MEDS: MIRTAZAPINE TAB 15 MG TAB PO SCH (20:30)
[2016-12-06] MEDS: BOOST VANILLA PO SCH ×2 (21:00)
--- NOTE | 2016-12-06 21:27 | Progress Note ---
Internal Med Progress Note Date of Service: Dec 06, 2016. Provider Documentation: SUBJECTIVE: remains confused , no sign of agitation noted OBJECTIVE: Vital Signs-as noted below Exam: General-chronically ill appearing , disheveled, confused Eyes-sclera non icteric Neck-no JVD, no thyromegaly Lungs-CTA ,no wheeze or rales Heart-regular S1/S2 Abdomen-soft ,non tender Extremities-rt groin cath site intact , no bleeding or swelling Neuro-no focal neurological deficit , confused, delusional Lab data as noted below. ASSESSMENT & PLAN: STEMI : hx of medication non compliance prior hx of ROBBI on RCA in Sep 2016 presented with Chest pain with ST elevation in Inf lead emergent Cardiac cath revealed 100 % occlusion of RCA s/p PTCA of RCA appreciate input form Cardiology pt will cont with dual antiplatelets Aspirin , Plavix high dose statin , beta don , ACEI needs close follow up with Cardiology and Family physician on discharge CONFUSION /METABOLIC ENCEPHALOPATHY : as per Daughter -at baseline -pt has been experiencing forgetful ness , delusion symptom worsened in past 1 year since discharge from [facility] long time hx of Significant ETOH abuse pt sometimes -gets word finding difficulties , confabulate things , makes up strange stories -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 His approx 1 yr back -his ETOH abuse has been getting worse he was found home intoxicated on floor not eating for days Daughter tried to be involve and help with medications -pt does not comply and most of the time does not give accurate information has not had Lab draws done for PT/INR check reports of fall at home pt still continues to drive till now cont monitor neuro checks fall precaution ETOH ABUSE : as per Daughter has been 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 was sober for past 9-10 years lapsed into drinking again as Her mother got Drinks 4-5 beer a day Last drink was day before STEMI -as per daughter caution for withdrawal /DT pt started on Neurontin /Ativan as per ETOH withdrawal protocol TOBACCO ABUSE smoke 1-1/2 jose cig a day -smoked all his life time as per daughter HX OF PE /DVT : was supposed to be on Coumadin doubt compliance INR 1 on presentation given hx of delirium/ETOH abuse /fall /compliance issue poor candidate for fpc anticoagulation Will D/C Coumadin DYSPHAGIA /HX OF ESOPHAGEAL STRICTURE : as per Daughter -pt has hx of Esophageal stricture -requiring EGD dilatation in past does not follow with any GI difficult to swallow pill -needs pill cutter -which also leads to poor compliance diet changed to mechanical soft crush meds when possible aspiration precaution Speech eval requested DEPRESSION -hx of depression , was seen by Psychiatry team at [facility] -Dr Barker in past was prescribed Zoloft pt has not been taking the meds as per Daughter was on Remeron in past for insomnia /depression Psych eval requested -appreciate input started on Zoloft 50 mg PO daily Remeron 15 PO HS will need follow up with Psych as out patient DVT PROPHYLAXIS sub q Heparin /Coumadin DISPOSITION cont to monitor in ICU tonight to assess possible ETOH withdrawal symptom possible tx to PCU tomorrow if no Withdrawal noted Difficult discharge planning : pt appears to not able to do self care -baseline dementia -daughter reports of forgetfulness , delirium on and off for past 1 yr ongoing ETOH abuse , does not eat for days unable to take medications due to dementia /intoxication Daughter tries to help , but pt's non compliance , ETOH abuse -makes caring very difficult form his repeated admission with STEMI ( Sep 2016 /this Admission ) possible due to poor compliance , tobacco and ETOH abuse with significant underlying CAD very poor prognosis will order PT/OT eval will benefit form SNF after discharge from [facility] need office of Aging to be involve -to assess pt's living situation and safety Social service consulted for discharge planning D/w Daughter Conchita -given update ordered for medical record from His cardiology at [place] and Family Physician at [facility] Vital Signs: Date Time Temp Pulse Resp B/P Pulse Ox O2 Delivery O2 Flow Rate FiO2 12/07/16 20:00 Room Air 12/07/16 19:32 36.7 60 18 105/55 93 Room Air 12/07/16 16:00 94 Room Air 12/07/16 15:47 60 14 87/51 12/07/16 15:31 36.7 53 16 79/45 95 12/07/16 12:00 94 Room Air 12/07/16 12:00 36.6 66 16 104/60 94 Room Air 93/57 12/07/16 09:17 67 110/64 12/07/16 08:00 93 Room Air 12/07/16 07:01 36.4 59 16 100/63 93 Room Air 12/07/16 04:00 36.4 58 16 106/67 95 Room Air 12/07/16 04:00 95 Room Air 12/07/16 00:00 95 Room Air 12/06/16 23:04 36.4 62 16 122/68 95 Room Air Lab Results: Results Past 24 Hours Test 12/07/16 05:10 12/07/16 05:19 Range/Units White Blood Count 7.16 4.8-10.8 K/uL Red Blood Count 4.64 4.7-6.1 M/uL Hemoglobin 13.9 14.0-18.0 g/dL Hematocrit 41.0 42-52 % Mean Corpuscular Volume 88.4 80-100 fL Mean Corpuscular Hemoglobin 30.0 25-34 pg Mean Corpuscular Hemoglobin Concent 33.9 32-36 g/dl Platelet Count 194 130-400 K/uL Mean Platelet Volume 9.5 7.4-10.4 fL Neutrophils (%) (Auto) 65.6 % Lymphocytes (%) (Auto) 18.6 % Monocytes (%) (Auto) 8.5 % Eosinophils (%) (Auto) 6.3 % Basophils (%) (Auto) 0.6 % Neutrophils # (Auto) 4.70 1.4-6.5 K/uL Lymphocytes # (Auto) 1.33 1.2-3.4 K/uL Monocytes # (Auto) 0.61 0.11-0.59 K/uL Eosinophils # (Auto) 0.45 0-0.5 K/uL Basophils # (Auto) 0.04 0-0.2 K/uL RDW Standard Deviation 59.5 36.4-46.3 fL RDW Coefficient of Variation 18.7 11.5-14.5 % Immature Granulocyte % (Auto) 0.4 % Immature Granulocyte # (Auto) 0.03 0.00-0.02 K/uL Sodium Level 134 136-145 mmol/L Potassium Level 3.8 3.5-5.1 mmol/L Chloride Level 101 98-107 mmol/L Carbon Dioxide Level 24 21-32 mmol/L Anion Gap 9.0 3-11 mmol/L Blood Urea Nitrogen 7 7-18 mg/dl Creatinine 1.40 0.60-1.40 mg/dl Est Creatinine Clear Calc Drug Dose 55.5 ml/min Estimated GFR () 58.6 Estimated GFR (Non- 50.5 BUN/Creatinine Ratio 5.3 10-20 Random Glucose 88 70-99 mg/dl Calcium Level 8.3 8.5-10.1 mg/dl Phosphorus Level 3.0 2.5-4.9 mg/dl Magnesium Level 2.0 1.8-2.4 mg/dl Prothrombin Time 14.0 9.0-12.0 SECONDS Prothromb Time International Ratio 1.3 0.9-1.1
[2016-12-07] VITALS (11 sets, daily range): BP systolic 79–144; BP diastolic 45–67; PULSE 53–67; TEMP 36.4–36.9; O2SAT 93–97
[2016-12-07 06:12] LABS: BASO % 0.6 %; BASO ABS # 0.04 K/uL (0-0.2); COMPLETE YES; EOS % 6.3 %; IG% 0.4 %; LYMPH % 18.6 %; LYMPH ABS # 1.33 K/uL (1.2-3.4); MEAN CELL VOLUME 88.4 fL (80-100); MEAN CORPUSCULAR HGB CONC 33.9 g/dl (32-36); MEAN PLATELET VOLUME 9.5 fL (7.4-10.4); MONO % 8.5 %; NEUT % 65.6 %; PLATELET COUNT 194 K/uL (130-400); RED BLOOD COUNT 4.64 M/uL (4.7-6.1); WHITE BLOOD COUNT 7.16 K/uL (4.8-10.8)
[2016-12-07 06:26] LABS: INR 1.3 (0.9-1.1)
[2016-12-07 06:37] LABS: BUN/CREATININE RATIO 5.3 (10-20); CALCIUM 8.3 mg/dl (8.5-10.1); CREATININE 1.4 mg/dl (0.60-1.40); POTASSIUM 3.8 mmol/L (3.5-5.1)
[2016-12-07] MEDS: BOOST VANILLA PO SCH ×4 (09:00→20:59)
[2016-12-07] MEDS: TICAGRELOR 90 MG TAB PO SCH ×2 (09:10→21:01)
[2016-12-07] MEDS: RANITIDINE HCL 150 MG TAB PO SCH (09:10)
[2016-12-07] MEDS: SERTRALINE HCL 50 MG TAB PO SCH (09:11)
[2016-12-07] MEDS: CYANOCOBALAMIN 500 MCG TAB (VIT B-12) PO SCH (09:11)
[2016-12-07] MEDS: THIAMINE HCL 100 MG TAB PO SCH (09:11)
[2016-12-07] MEDS: DOCUSATE SODIUM 100 MG/10 ML UDC PO SCH ×2 (09:11→21:01)
[2016-12-07] MEDS: GABAPENTIN 600MG Q8H DOSE PO SCH (09:11)
[2016-12-07] MEDS: CALCIUM 600MG + VIT D 400 IU TAB PO SCH ×2 (09:11→21:01)
[2016-12-07] MEDS: ASPIRIN 81 MG ECTAB PO SCH (09:11)
[2016-12-07] MEDS: FERROUS SULFATE 325 MG TAB PO SCH ×2 (09:11→16:50)
[2016-12-07] MEDS: MAGNESIUM OXIDE 400 MG TAB PO SCH ×2 (09:11→21:00)
[2016-12-07] MEDS: ENALAPRIL MALEATE 10 MG TAB PO SCH (09:12)
[2016-12-07] MEDS: ATORVASTATIN 40 MG TAB PO SCH (09:12)
[2016-12-07] MEDS: METOPROLOL SUCC 25MG EXT REL TAB PO SCH (09:22)
--- NOTE | 2016-12-07 12:35 | Psychiatric Progress Notes ---
Psychiatric Progress Note Date of Service Dec 07, 2016. Notes ID: Patient reviewed with liaison nurse. Initial consult by Dr. Gerard reviewed, Zoloft continued. CC: "I slept well, no I won't sign releases" HPI: denies issues overnight. ROS: denies tremor, states slept well MSE: alert, irritable, some delay in response but oriented, no SI/HI/garcia. Imp: unspecified depressive disorder Plan: ETOH detox per primary team per hospital protocol, same D&A tx recs as initial consult declines psychiatric intervention/referrals, agree to acute indication for inpatient mental health hospitalization will reattempt PCP RASHAWN when more agreeable
[2016-12-07] MEDS: GABAPENTIN 600MG Q12H DOSE PO SCH (21:00)
[2016-12-07] MEDS: MIRTAZAPINE TAB 15 MG TAB PO SCH (21:01)
--- NOTE | 2016-12-07 21:57 | Progress Note ---
Internal Med Progress Note Date of Service: Dec 07, 2016. Provider Documentation: SUBJECTIVE: unable to tell where he is at thinks he is visiting some one no complain of chest pain or SOB has been sleeping most part of the day OBJECTIVE: Vital Signs-as noted below Exam: General-chronically ill appearing , disheveled, confused Eyes-sclera non icteric Neck-no JVD, no thyromegaly Lungs-CTA ,no wheeze or rales Heart-regular S1/S2 Abdomen-soft ,non tender Extremities-rt groin cath site intact , no bleeding or swelling Neuro-no focal neurological deficit , confused, delusional Lab data as noted below. ASSESSMENT & PLAN: STEMI : hx of medication non compliance prior hx of ROBBI on RCA in Sep 2016 presented with Chest pain with ST elevation in Inf lead emergent Cardiac cath revealed 100 % occlusion of RCA s/p PTCA of RCA appreciate input form Cardiology pt will cont with dual antiplatelets Aspirin , Plavix high dose statin , beta don , ACEI needs close follow up with Cardiology and Family physician on discharge CONFUSION /METABOLIC ENCEPHALOPATHY : as per Daughter -at baseline -pt has been experiencing forgetful ness , delusion symptom worsened in past 1 year since discharge from [facility] long time hx of Significant ETOH abuse pt sometimes -gets word finding difficulties , confabulate things , makes up strange stories -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 His approx 1 yr back -his ETOH abuse has been getting worse he was found home intoxicated on floor not eating for days Daughter tried to be involve and help with medications -pt does not comply and most of the time does not give accurate information has not had Lab draws done for PT/INR check reports of fall at home pt still continues to drive till now cont monitor neuro checks fall precaution HYPOTENSION : BP borderline low in 90's possible due to Neurontin -ETOH withdrawl protocol has been getting weaned off will reduced ACEI dose -Enalapril 5 mg PO daily ( hold for SBP < 100 ) cont to monitor in tele ETOH ABUSE : as per Daughter has been 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 was sober for past 9-10 years lapsed into drinking again as Her mother got Drinks 4-5 beer a day Last drink was day before STEMI -as per daughter caution for withdrawal /DT pt started on Neurontin /Ativan as per ETOH withdrawal protocol TOBACCO ABUSE smoke 1-1/2 jose cig a day -smoked all his life time as per daughter HX OF PE /DVT : was supposed to be on Coumadin doubt compliance INR 1 on presentation given hx of delirium/ETOH abuse /fall /compliance issue 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 Will D/C Coumadin DYSPHAGIA /HX OF ESOPHAGEAL STRICTURE : as per Daughter -pt has hx of Esophageal stricture -requiring EGD dilatation in past does not follow with any GI difficult to swallow pill -needs pill cutter -which also leads to poor compliance diet changed to mechanical soft crush meds when possible aspiration precaution Speech eval requested DEPRESSION -hx of depression , was seen by Psychiatry team at [facility] -Dr Barker in past was prescribed Zoloft pt has not been taking the meds as per Daughter was on Remeron in past for insomnia /depression Psych eval requested -appreciate input started on Zoloft 50 mg PO daily Remeron 15 PO HS will need follow up with Psych as out patient DVT PROPHYLAXIS sub q Heparin /Coumadin DISPOSITION cont to monitor in ICU tonight to assess possible ETOH withdrawal symptom possible tx to PCU tomorrow if no Withdrawal noted Difficult discharge planning : pt appears to not able to do self care -baseline dementia -daughter reports of forgetfulness , delirium on and off for past 1 yr ongoing ETOH abuse , does not eat for days unable to take medications due to dementia /intoxication Daughter tries to help , but pt's non compliance , ETOH abuse -makes caring very difficult form his repeated admission with STEMI ( Sep 2016 /this Admission ) possible due to poor compliance , tobacco and ETOH abuse with significant underlying CAD very poor prognosis will order PT/OT eval will benefit form SNF after discharge from [facility] need office of Aging to be involve -to assess pt's living situation and safety Social service consulted for discharge planning ordered for medical record from His cardiology at [place] and Family Physician at [facility] Vital Signs: Date Time Temp Pulse Resp B/P Pulse Ox O2 Delivery O2 Flow Rate FiO2 12/07/16 20:00 Room Air 12/07/16 19:32 36.7 60 18 105/55 93 Room Air 12/07/16 16:00 94 Room Air 12/07/16 15:47 60 14 87/51 12/07/16 15:31 36.7 53 16 79/45 95 12/07/16 12:00 94 Room Air 12/07/16 12:00 36.6 66 16 104/60 94 Room Air 93/57 2/27/17 09:17 67 110/64 12/07/16 08:00 93 Room Air 12/07/16 07:01 36.4 59 16 100/63 93 Room Air 12/07/16 04:00 36.4 58 16 106/67 95 Room Air 12/07/16 04:00 95 Room Air 12/07/16 00:00 95 Room Air 12/06/16 23:04 36.4 62 16 122/68 95 Room Air Lab Results: Results Past 24 Hours Test 12/07/16 05:10 12/07/16 05:19 Range/Units White Blood Count 7.16 4.8-10.8 K/uL Red Blood Count 4.64 4.7-6.1 M/uL Hemoglobin 13.9 14.0-18.0 g/dL Hematocrit 41.0 42-52 % Mean Corpuscular Volume 88.4 80-100 fL Mean Corpuscular Hemoglobin 30.0 25-34 pg Mean Corpuscular Hemoglobin Concent 33.9 32-36 g/dl Platelet Count 194 130-400 K/uL Mean Platelet Volume 9.5 7.4-10.4 fL Neutrophils (%) (Auto) 65.6 % Lymphocytes (%) (Auto) 18.6 % Monocytes (%) (Auto) 8.5 % Eosinophils (%) (Auto) 6.3 % Basophils (%) (Auto) 0.6 % Neutrophils # (Auto) 4.70 1.4-6.5 K/uL Lymphocytes # (Auto) 1.33 1.2-3.4 K/uL Monocytes # (Auto) 0.61 0.11-0.59 K/uL Eosinophils # (Auto) 0.45 0-0.5 K/uL Basophils # (Auto) 0.04 0-0.2 K/uL RDW Standard Deviation 59.5 36.4-46.3 fL RDW Coefficient of Variation 18.7 11.5-14.5 % Immature Granulocyte % (Auto) 0.4 % Immature Granulocyte # (Auto) 0.03 0.00-0.02 K/uL Sodium Level 134 136-145 mmol/L Potassium Level 3.8 3.5-5.1 mmol/L Chloride Level 101 98-107 mmol/L Carbon Dioxide Level 24 21-32 mmol/L Anion Gap 9.0 3-11 mmol/L Blood Urea Nitrogen 7 7-18 mg/dl Creatinine 1.40 0.60-1.40 mg/dl Est Creatinine Clear Calc Drug Dose 55.5 ml/min Estimated GFR () 58.6 Estimated GFR (Non- 50.5 BUN/Creatinine Ratio 5.3 10-20 Random Glucose 88 70-99 mg/dl Calcium Level 8.3 8.5-10.1 mg/dl Phosphorus Level 3.0 2.5-4.9 mg/dl Magnesium Level 2.0 1.8-2.4 mg/dl Prothrombin Time 14.0 9.0-12.0 SECONDS Prothromb Time International Ratio 1.3 0.9-1.1
--- NOTE | 2016-12-07 22:43 | Cardiology Follow-Up ---
Subjective Subjective Date of Service: Dec 07, 2016. Pt evaluation today including: conversation w/ patient, physical exam, chart review, lab review, review of studies, review of inpatient medication list Additional Details: Denies chest pain or shortness of breath. Confused, states he is on a ship today. No events on telemetry. Problem List Medical Problems: (1) Closed fracture of neck of left humerus Status: Acute (2) Dehydration Status: Acute (3) History of alcohol abuse Status: Chronic (4) Multiple contusions Status: Acute (5) STEMI (ST elevation myocardial infarction) Status: Acute (6) STEMI (ST elevation myocardial infarction) Status: Acute Review of Systems Constitutional: No fever Respiratory: No shortness of breath Cardiac: No chest pain Abdomen: No nausea, No pain Neurologic: + memory loss, + problem reported (Confusion) Psychiatric: + substance abuse Heme: No abnormal bleeding/bruising Endo: No fatigue Skin: No rash Objective Vital Signs Last Vital Signs Documentation Date Time Temp Pulse Resp B/P Pulse Ox O2 Delivery O2 Flow Rate FiO2 12/07/16 20:00 Room Air 12/07/16 19:32 36.7 60 18 105/55 93 12/04/16 12:00 4 Physical Exam: General Appearance: WD/WN, no apparent distress Respiratory/Chest: lungs clear, normal breath sounds, no respiratory distress Cardiovascular: regular rate, rhythm, no edema, + systolic murmur (2/6 at LUSB) Abdomen: non tender, soft Extremities: no pedal edema, no calf tenderness, + pertinent finding (right femoral access site - no hematoma, bruits or ecchymosis. Mildly tender) Neurologic/Psychiatric: alert, + disoriented, + pertinent finding (Confused , AOx1) Skin: warm/dry, no rash Lymphatic: no adenopathy Assessment and Plan 1. Inferior STEMI - s/p PCI with ROBBI x2 to mid RCA, ostial PDA 2. Recurrent stent thrombosis -- occurring in the setting of significant instent restenosis(?neoatherosclerosis), distal vessel CAD, med noncompliance 3. History of VTE 4. Ongoing tobacco abuse 5. Alcohol abuse, withdrawal 6. Hypotension Relative hypotension this afternoon. Agree with reducing lisinopril. Otherwise stable from a cardiac standpoint. -- Continue DAPT with ASA/Brillanta --> transition to ASA/Plavix on discharge - Prior to discharge will need to be loaded on Plavix 300mg -- continue high-dose statin, beta-don and ALON as above. -- From a cardiac standpoint OK for discharge when medical issues/disposition resolved and OK for transfer out of PCU Medications: Current Inpatient Medications Medications (Trade) Dose Ordered Sig/Nieves Route Start Time Stop Time Status Last Admin Dose Admin Atropine Sulfate (Atropine Sulfate 0.1MG/Ml Inj) 0.5 mg ONE PRN IV 12/04/16 12:15 01/03/17 12:14 Ondansetron HCl (Zofran Inj) 4 mg Q6H PRN IV 12/04/16 12:15 01/03/17 12:14 12/04/16 16:46 4 MG Aspirin (Ecotrin Tab) 81 mg QAM PO 12/05/16 09:00 01/04/17 08:59 12/07/16 09:11 81 MG Atorvastatin Calcium (Lipitor Tab) 80 mg QAM PO 12/05/16 09:00 01/04/17 08:59 12/07/16 09:12 80 MG Acetaminophen (Tylenol Tab) 650 mg Q4H PRN PO 12/04/16 12:15 01/03/17 12:14 Calcium/Vitamin D (Caltrate Plus Tab) 1 tab BID PO 12/04/16 21:00 01/03/17 20:59 12/07/16 21:01 1 TAB Cyanocobalamin (Vitamin B-12 Tab) 1,000 mcg DAILY PO 12/05/16 09:00 01/04/17 08:59 12/07/16 09:11 1,000 MCG Folic Acid (Folvite Tab) 1 mg DAILY PO 12/05/16 09:00 01/04/17 08:59 12/07/16 09:11 1 MG Gabapentin (Neurontin Cap) 400 mg TID PO 12/04/16 14:00 01/03/17 13:59 Future hold 12/05/16 09:35 400 MG Magnesium Hydroxide (Milk Of Magnesia Susp) 30 ml DAILY PRN PO 12/04/16 12:15 01/03/17 12:14 Magnesium Oxide (Mag-Ox Tab) 400 mg BID PO 12/04/16 21:00 01/03/17 20:59 12/07/16 21:00 400 MG Metoprolol Succinate (Toprol Xl Tab) 12.5 mg DAILY PO 12/05/16 09:00 01/04/17 08:59 12/07/16 09:22 12.5 MG Mirtazapine (Remeron Tab) 15 mg HS PO 12/04/16 21:00 01/03/17 20:59 12/07/16 21:01 15 MG Ranitidine HCl (zANTac TAB) 150 mg DAILY PO 12/05/16 09:00 01/04/17 08:59 12/07/16 09:10 150 MG Sertraline HCl (Zoloft Tab) 50 mg DAILY PO 12/05/16 09:00 01/04/17 08:59 12/07/16 09:11 50 MG Ferrous Sulfate (Feosol Tab) 325 mg BIDM PO 12/04/16 16:30 01/03/17 16:29 12/07/16 16:50 325 MG Ticagrelor (Brilinta Cap) 90 mg BID PO 12/04/16 21:00 01/03/17 20:59 12/07/16 21:01 90 MG Lorazepam (Ativan Inj) 1 mg Q4H PRN IV 12/04/16 18:30 01/03/17 18:29 12/05/16 19:32 1 MG Lorazepam 0.5 mg 0.5 mg Q4H PRN IV 12/04/16 18:30 01/03/17 18:29 Lorazepam 1 mg/ Syringe 1 ml @ 1 mls/min Q4H PRN IV 12/04/16 20:30 01/03/17 20:29 Lorazepam/Syringe (Ativan Inj/ Syringe) 1 ml @ 1 mls/min Q4H PRN IV 12/04/16 20:30 01/03/17 20:29 12/04/16 23:04 1 MLS/MIN Thiamine HCl (Vitamin B-1 Tab) 100 mg DAILY PO 12/05/16 18:18 01/04/17 18:17 12/07/16 09:11 100 MG Gabapentin (Neurontin Tab) 600 mg Q12H PO 12/07/16 20:00 12/08/16 08:01 12/07/16 21:00 600 MG Gabapentin (Neurontin Tab) 600 mg Q24H PO 12/09/16 08:00 12/09/16 08:01 Enteral Nutritional Formula (Boost) 1 can BID PO 12/06/16 09:00 01/05/17 08:59 12/06/16 21:00 1 CAN Docusate Sodium (coLACE SYRUP) 100 mg BID PO 12/06/16 21:00 01/05/17 20:59 12/07/16 21:01 100 MG Enalapril Maleate (Vasotec Tab) 5 mg DAILY PO 12/08/16 09:00 01/07/17 08:59 Lab Results: 12/07/16 05:10 Red Blood Count 4.64, Mean Corpuscular Volume 88.4, Mean Corpuscular Hemoglobin 30.0, Mean Corpuscular Hemoglobin Concent 33.9, Mean Platelet Volume 9.5, Neutrophils (%) (Auto) 65.6, Lymphocytes (%) (Auto) 18.6, Monocytes (%) (Auto) 8.5, Eosinophils (%) (Auto) 6.3, Basophils (%) (Auto) 0.6, Neutrophils # (Auto) 4.70, Lymphocytes # (Auto) 1.33, Monocytes # (Auto) 0.61, Eosinophils # (Auto) 0.45, Basophils # (Auto) 0.04 12/07/16 05:10 Test 12/07/16 05:10 12/07/16 05:19 White Blood Count 7.16 K/uL (4.8-10.8) Red Blood Count 4.64 M/uL (4.7-6.1) Hemoglobin 13.9 g/dL (14.0-18.0) Hematocrit 41.0 % (42-52) Mean Corpuscular Volume 88.4 fL (80-100) Mean Corpuscular Hemoglobin 30.0 pg (25-34) Mean Corpuscular Hemoglobin Concent 33.9 g/dl (32-36) Platelet Count 194 K/uL (130-400) Mean Platelet Volume 9.5 fL (7.4-10.4) Neutrophils (%) (Auto) 65.6 % Lymphocytes (%) (Auto) 18.6 % Monocytes (%) (Auto) 8.5 % Eosinophils (%) (Auto) 6.3 % Basophils (%) (Auto) 0.6 % Neutrophils # (Auto) 4.70 K/uL (1.4-6.5) Lymphocytes # (Auto) 1.33 K/uL (1.2-3.4) Monocytes # (Auto) 0.61 K/uL (0.11-0.59) Eosinophils # (Auto) 0.45 K/uL (0-0.5) Basophils # (Auto) 0.04 K/uL (0-0.2) RDW Standard Deviation 59.5 fL (36.4-46.3) RDW Coefficient of Variation 18.7 % (11.5-14.5) Immature Granulocyte % (Auto) 0.4 % Immature Granulocyte # (Auto) 0.03 K/uL (0.00-0.02) Anion Gap 9.0 mmol/L (3-11) Est Creatinine Clear Calc Drug Dose 55.5 ml/min Estimated GFR () 58.6 Estimated GFR (Non- 50.5 BUN/Creatinine Ratio 5.3 (10-20) Calcium Level 8.3 mg/dl (8.5-10.1) Phosphorus Level 3.0 mg/dl (2.5-4.9) Magnesium Level 2.0 mg/dl (1.8-2.4) Prothrombin Time 14.0 SECONDS (9.0-12.0) Prothromb Time International Ratio 1.3 (0.9-1.1)
[2016-12-08] VITALS (7 sets, daily range): BP systolic 90–161; BP diastolic 50–74; PULSE 56–71; TEMP 36.6–37; O2SAT 91–97
--- NOTE | 2016-12-08 00:29 | Progress Note ---
Post ICU Progress Note Date & Time Dec 08, 2016 at 00:09 Vital Signs Vital Signs Past 12 Hours Date Time Temp Pulse Resp B/P Pulse Ox O2 Delivery O2 Flow Rate FiO2 12/07/16 23:40 36.9 59 20 144/61 97 Room Air 12/07/16 20:00 Room Air 12/07/16 19:32 36.7 60 18 105/55 93 Room Air 12/07/16 16:00 94 Room Air 12/07/16 15:47 60 14 87/51 12/07/16 15:31 36.7 53 16 79/45 95 Notes Mental Status: alert / awake, participated in evaluation Nausea / Vomiting: adequately controlled Pain: adequately controlled Airway Patency, RR, SpO2: stable & adequate BP & HR: stable & adequate Mr. Doty is a 71 yo male who presented to the ED via EMS after chest tightness similar to a prior heart attack. A heart alert was called and he was taken to the medical lab director where he was found to have 100% occlusion of a previously stented area in the RCA. Pt is known to drink 2-4 beers a day up to the day prior to arrival. Since his admission, his mental health has been called into question. Per his daughter he has been showing signs of decline. Pt was placed on withdrawal precautions and received Ativan. Mr. Doty left the ICU on 12/06. He did not require intubation or central lines/invasive monitoring during his time in the ICU. Today he continues to be confused at times. He was speaking cryptically to me; "I just want to know when it will all be over." At which time, he started referring to the pain of life in all of us. He had no complaints of fever, chills, chest pain, or trouble breathing. He denied nausea, abd pain, or weakness. His physical exam yielded no new findings. However, his medical chart did demonstrates so low BP's earlier in the day which appear to have been asymptomatic and later return to normal. The hospitalist plans to lower ACEi dosing as a precautionary measure. Currently the patient continues to refuse inpatient alcohol rehab. Case management plans to revisit this matter. Prior to his hospitalization, it is my understanding that he was driving and living alone. Consider outpatient follow up in [address] Jain; if pt does not undergo inpatient rehabilitation after discharge. Reviewed progress notes, labs, and inpatient medication list Continue current management Pt is currently stable, would suggest continue follow up from psychiatry. Critical Care will sign off at this time. Thank you for including us in the care of this pt, please feel free to reconsult as needed. Consults & Procedures Consultants: Cardiology: Dr. Ferro Psychiatry: Dr. Barker Procedures: Cardiac Cath: 12/04/16 Dr. Ferro
[2016-12-08 05:12] LABS: INR 1.5 (0.9-1.1); PROTHROMBIN TIME (PATIENT) 15.8 SECONDS (9.0-12.0)
[2016-12-08] MEDS: GABAPENTIN 600MG Q12H DOSE PO SCH (08:40)
[2016-12-08] MEDS: BOOST VANILLA PO SCH ×4 (08:40→20:43)
[2016-12-08] MEDS: FERROUS SULFATE 325 MG TAB PO SCH ×2 (08:40→16:45)
[2016-12-08] MEDS: TICAGRELOR 90 MG TAB PO SCH ×2 (08:40→20:35)
[2016-12-08] MEDS: DOCUSATE SODIUM 100 MG/10 ML UDC PO SCH ×2 (08:41→20:35)
[2016-12-08] MEDS: ATORVASTATIN 40 MG TAB PO SCH (08:41)
[2016-12-08] MEDS: ASPIRIN 81 MG ECTAB PO SCH (08:41)
[2016-12-08] MEDS: CALCIUM 600MG + VIT D 400 IU TAB PO SCH ×2 (08:41→20:34)
[2016-12-08] MEDS: MAGNESIUM OXIDE 400 MG TAB PO SCH ×2 (08:42→20:34)
[2016-12-08] MEDS: CYANOCOBALAMIN 500 MCG TAB (VIT B-12) PO SCH (08:42)
[2016-12-08] MEDS: RANITIDINE HCL 150 MG TAB PO SCH (08:42)
[2016-12-08] MEDS: THIAMINE HCL 100 MG TAB PO SCH (08:42)
[2016-12-08] MEDS: SERTRALINE HCL 50 MG TAB PO SCH (08:42)
[2016-12-08] MEDS: METOPROLOL SUCC 25MG EXT REL TAB PO SCH (09:00)
[2016-12-08] MEDS: ENALAPRIL MALEATE 5 MG TAB PO SCH (09:00)
--- NOTE | 2016-12-08 14:49 | Progress Note ---
Internal Med Progress Note Date of Service: Dec 08, 2016. Provider Documentation: SUBJECTIVE: Patient is seen and examined at bedside. Currently oriented X3. Admits to having intermittent confusion and dizziness. Denies any chest Pain, SOB, palpitations, abd pain. OBJECTIVE: Vital Signs-as noted below Physical Exam: General Appearance:Moderately built and nourished, no apparent distress Head: normocephalic, Atraumatic Eyes: normal inspection, EOMI, PERRLA Neck: supple, Trachea midline Respiratory/Chest: Normal breath sounds, CTA, No accessory muscle use Cardiovascular: S1, S2, + systolic murmur Abdomen/GI:Soft, Non tender, Bowel sounds present Extremities/Musculoskelatal:normal inspection, no edema Neurologic/Psych:+ intermittent confusion, grossly no focal neurological deficits Skin: normal color, warm Lab data as noted below. ASSESSMENT & PLAN: STEMI : s/p PCI with ROBBI x2 to mid RCA, ostial PDA Recurrent stent thrombosis H/O medication non compliance prior hx of ROBBI on RCA in Sep 2016 Patient presented with Chest pain and ST elevation in Inf lead underwent emergent Cardiac cath revealed 100 % occlusion of RCA Appreciate Cardiology help Continue Aspirin, Brilinta>>> Need to transition to ASA/Plavix (will need to be loaded on Plavix 300mg prior to DC) Also continue statin , beta don, ACEI CONFUSION /METABOLIC ENCEPHALOPATHY : ? Underlying dementia Per Daughter -at baseline -pt has been experiencing forgetfulness , delusion Patient got form his approx 1 yr back -his ETOH abuse worsened symptom worsened in past 1 year since discharge from [facility] long time hx of Significant ETOH abuse pt sometimes -gets word finding difficulties , confabulate things , makes up strange stories -George's Encephalopathy neuro checks fall precaution HYPOTENSION : BP low in 90's Possibly due to Neurontin -ETOH withdrawal protocol has been getting weaned off Continue reduced ACEI dose -Enalapril 5 mg PO daily ( hold for SBP < 100 ) cont to monitor in tele ETOH ABUSE : Per Daughter patient is 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 was sober for past 9-10 years; lapsed into drinking secondary to separation from Last drink was day before STEMI -as per daughter caution for withdrawal /DT Continue Neurontin /Ativan as per ETOH withdrawal protocol Continue thiamine/Folic acid 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 HX OF PE /DVT : Patient was supposed to be on Coumadin doubt compliance INR 1 on presentation given hx of delirium/ETOH abuse /fall /compliance issue poor candidate for terminal makeup operator anticoagulation Will D/C Coumadin DYSPHAGIA /HX OF ESOPHAGEAL STRICTURE : H/O Esophageal stricture -requiring EGD dilatation in past as per daughter does not follow with GI mechanical soft diet crush meds when possible aspiration precaution Speech eval DEPRESSION H/O depression , was seen by Psychiatry team at [facility] -Dr Barker in past Pat was on Zoloft at home: not been taking as per Daughter Continue Zoloft, Remeron Appreciate Psych help: Needs follow up as outpatient DVT PX: sub q Heparin DISPOSITION: Continue to monitor in Tele catering convention services manager consulted ordered for medical record from His cardiology at [facility] at [facility] Vital Signs: Date Time Temp Pulse Resp B/P Pulse Ox O2 Delivery O2 Flow Rate FiO2 12/08/16 11:46 36.6 66 18 90/60 97 12/08/16 08:40 36.8 71 18 93/50 96 12/08/16 08:00 Room Air 12/08/16 04:39 36.9 56 20 96/51 91 Room Air 12/08/16 04:00 Room Air 12/08/16 00:01 Room Air 12/07/16 23:40 36.9 59 20 144/61 97 Room Air 12/07/16 20:00 Room Air 12/07/16 19:32 36.7 60 18 105/55 93 Room Air 12/07/16 16:00 94 Room Air 12/07/16 15:47 60 14 87/51 12/07/16 15:31 36.7 53 16 79/45 95 Lab Results: Results Past 24 Hours Test 12/08/16 04:44 Range/Units Prothrombin Time 15.8 9.0-12.0 SECONDS Prothromb Time International Ratio 1.5 0.9-1.1
[2016-12-08] MEDS: MIRTAZAPINE TAB 15 MG TAB PO SCH (20:34)
[2016-12-08] MEDS: LORAZEPAM 2 MG/ML 1 ML VIAL IV PRN (20:37)
[2016-12-09 02:49] LABS: COD UR NEGATIVE NG/ML (CUTOFF=50); HYDROCOD UR NEGATIVE NG/ML (CUTOFF=50); HYDROMOR UR NEGATIVE NG/ML (CUTOFF=50); HYDROXYETHYLFLURAZEPAM CONF NEGATIVE NG/ML (CUTOFF=50); HYDROXYMIDAZOLAM 168 NG/ML (CUTOFF=50); HYDROXYTRIAZOLAM CONF NEGATIVE NG/ML (CUTOFF=50); MORPHINE UR 371 NG/ML (CUTOFF=50); NORHYDROCODONE CONF UR NEGATIVE NG/ML (CUTOFF=50); OXYMORPH UR NEGATIVE NG/ML (CUTOFF=50); TEMAZEPAM CONF NEGATIVE NG/ML (CUTOFF=50)
[2016-12-09 03:38] VITALS: BP 149/83; PULSE 70; TEMP 36.7; O2SAT 95
[2016-12-09 06:20] LABS: BASO % 0.2 %; BASO ABS # 0.02 K/uL (0-0.2); COMPLETE YES; EOS % 2.2 %; HEMATOCRIT 46.8 % (42-52); IG% 0.3 %; LYMPH % 6.8 %; LYMPH ABS # 0.82 K/uL (1.2-3.4); MEAN CELL VOLUME 89.7 fL (80-100); MEAN CORPUSCULAR HEMOGLOBIN 31.4 pg (25-34); MONO % 6.3 %; NEUT % 84.2 %; PLATELET COUNT 212 K/uL (130-400); RED BLOOD COUNT 5.22 M/uL (4.7-6.1); WHITE BLOOD COUNT 12.02 K/uL (4.8-10.8)
[2016-12-09 06:26] LABS: INR 1.2 (0.9-1.1); PROTHROMBIN TIME (PATIENT) 12.9 SECONDS (9.0-12.0)
[2016-12-09 06:56] LABS: BUN/CREATININE RATIO 6.7 (10-20); CREATININE 1.5 mg/dl (0.60-1.40)
[2016-12-09 07:48] VITALS: BP 137/75; PULSE 83; TEMP 37.1; O2SAT 90
[2016-12-09] MEDS ORDERED: GABAPENTIN 600MG X1 DOSE PO SCH (08:00)
[2016-12-09] MEDS: TICAGRELOR 90 MG TAB PO SCH ×2 (08:09→21:04)
[2016-12-09] MEDS: CALCIUM 600MG + VIT D 400 IU TAB PO SCH ×2 (08:10→21:03)
[2016-12-09] MEDS: MAGNESIUM OXIDE 400 MG TAB PO SCH ×2 (08:10→21:04)
[2016-12-09] MEDS: ENALAPRIL MALEATE 5 MG TAB PO SCH (08:10)
[2016-12-09] MEDS: DOCUSATE SODIUM 100 MG/10 ML UDC PO SCH ×2 (08:10→21:00)
[2016-12-09] MEDS: ASPIRIN 81 MG ECTAB PO SCH (08:10)
[2016-12-09] MEDS: CYANOCOBALAMIN 500 MCG TAB (VIT B-12) PO SCH (08:11)
[2016-12-09] MEDS: ATORVASTATIN 40 MG TAB PO SCH (08:11)
[2016-12-09] MEDS: FERROUS SULFATE 325 MG TAB PO SCH ×2 (08:11→16:24)
[2016-12-09] MEDS: BOOST VANILLA PO SCH ×4 (08:11→21:00)
[2016-12-09] MEDS: METOPROLOL SUCC 25MG EXT REL TAB PO SCH (08:12)
[2016-12-09] MEDS: RANITIDINE HCL 150 MG TAB PO SCH (08:13)
[2016-12-09] MEDS: SERTRALINE HCL 50 MG TAB PO SCH (08:13)
[2016-12-09] MEDS: THIAMINE HCL 100 MG TAB PO SCH (08:13)
[2016-12-09 11:30] VITALS: BP 111/61; PULSE 81; TEMP 37.1; O2SAT 91
--- NOTE | 2016-12-09 12:01 | Progress Note ---
Internal Med Progress Note Date of Service: Dec 09, 2016. Provider Documentation: SUBJECTIVE: Patient is seen and examined at bedside. States feeling very tired today. Denies any chest Pain, SOB, abd pain. "Gas Truck Driver visited twice today and gave food." OBJECTIVE: Vital Signs-as noted below Physical Exam: General Appearance:Moderately built and nourished, no apparent distress Head: normocephalic, Atraumatic Eyes: normal inspection, EOMI, PERRLA Neck: supple, Trachea midline Respiratory/Chest: Normal breath sounds, CTA, No accessory muscle use Cardiovascular: S1, S2, + systolic murmur Abdomen/GI:Soft, Non tender, Bowel sounds present Extremities/Musculoskelatal:normal inspection, no edema Neurologic/Psych:+ intermittent confusion, grossly no focal neurological deficits Skin: normal color, warm Lab data as noted below. ASSESSMENT & PLAN: STEMI : s/p PCI with ROBBI x2 to mid RCA, ostial PDA Recurrent stent thrombosis H/O medication non compliance prior hx of ROBBI on RCA in Sep 2016 Patient presented with Chest pain and ST elevation in Inf lead underwent emergent Cardiac cath revealed 100 % occlusion of RCA Appreciate Cardiology help Continue Aspirin, Brilinta>>> Need to transition to ASA/Plavix (will need to be loaded on Plavix 300mg prior to DC) Also continue statin , beta don, ACEI CONFUSION /METABOLIC ENCEPHALOPATHY : ? Underlying dementia Per Daughter -at baseline -pt has been experiencing forgetfulness , delusion Patient got form his approx 1 yr back -his ETOH abuse worsened symptom worsened in past 1 year since discharge from [facility] long time hx of Significant ETOH abuse pt sometimes -gets word finding difficulties , confabulate things , makes up strange stories -Wernicke's Encephalopathy neuro checks fall precaution Will consult Neurology HYPOTENSION : Resolved Possibly due to Neurontin -ETOH withdrawal protocol has been getting weaned off Continue reduced ACEI dose -Enalapril 5 mg PO daily cont to monitor in tele ETOH ABUSE : Per Daughter patient is 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 was sober for past 9-10 years; lapsed into drinking secondary to separation from Last drink was day before STEMI -as per daughter caution for withdrawal /DT Continue Neurontin /Ativan as per ETOH withdrawal protocol Continue thiamine/Folic acid 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 HX OF PE /DVT : Patient was supposed to be on Coumadin doubt compliance INR 1.1 on presentation given hx of delirium/ETOH abuse /fall /compliance issue poor candidate for shelter anticoagulation Coumadin discontinued DYSPHAGIA /HX OF ESOPHAGEAL STRICTURE : H/O Esophageal stricture -requiring EGD dilatation in past as per daughter does not follow with GI mechanical soft diet crush meds when possible aspiration precaution Speech eval:Mech soft diet DEPRESSION H/O depression , was seen by Psychiatry team at [facility] -Dr Barker in past Pat was on Zoloft at home: not been taking as per Daughter Continue Zoloft, Remeron Appreciate Psych help: Needs follow up as outpatient DVT PX: sub q Heparin DISPOSITION: Continue to monitor in Tele dining services director consulted Needs follow up with PCP and Cardiology upon discharge Patient agrees to go to rehab facility Vital Signs: Date Time Temp Pulse Resp B/P Pulse Ox O2 Delivery O2 Flow Rate FiO2 12/09/16 11:30 37.1 81 18 111/61 91 Room Air 12/09/16 07:48 37.1 83 18 137/75 90 Room Air 12/09/16 04:00 Room Air 12/09/16 03:38 36.7 70 20 149/83 95 Room Air 12/09/16 00:01 Room Air 12/08/16 22:59 36.8 57 20 161/74 97 Room Air 12/08/16 20:00 Room Air 12/08/16 19:20 36.6 64 18 143/63 91 Room Air 12/08/16 16:00 95 Room Air 12/08/16 15:45 37.0 66 18 107/67 95 Room Air Lab Results: Results Past 24 Hours Test 12/09/16 06:03 Range/Units White Blood Count 12.02 4.8-10.8 K/uL Red Blood Count 5.22 4.7-6.1 M/uL Hemoglobin 16.4 14.0-18.0 g/dL Hematocrit 46.8 42-52 % Mean Corpuscular Volume 89.7 80-100 fL Mean Corpuscular Hemoglobin 31.4 25-34 pg Mean Corpuscular Hemoglobin Concent 35.0 32-36 g/dl Platelet Count 212 130-400 K/uL Mean Platelet Volume 10.0 7.4-10.4 fL Neutrophils (%) (Auto) 84.2 % Lymphocytes (%) (Auto) 6.8 % Monocytes (%) (Auto) 6.3 % Eosinophils (%) (Auto) 2.2 % Basophils (%) (Auto) 0.2 % Neutrophils # (Auto) 10.11 1.4-6.5 K/uL Lymphocytes # (Auto) 0.82 1.2-3.4 K/uL Monocytes # (Auto) 0.76 0.11-0.59 K/uL Eosinophils # (Auto) 0.27 0-0.5 K/uL Basophils # (Auto) 0.02 0-0.2 K/uL RDW Standard Deviation 61.5 36.4-46.3 fL RDW Coefficient of Variation 18.8 11.5-14.5 % Immature Granulocyte % (Auto) 0.3 % Immature Granulocyte # (Auto) 0.04 0.00-0.02 K/uL Prothrombin Time 12.9 9.0-12.0 SECONDS Prothromb Time International Ratio 1.2 0.9-1.1 Sodium Level 135 136-145 mmol/L Potassium Level 4.0 3.5-5.1 mmol/L Chloride Level 99 98-107 mmol/L Carbon Dioxide Level 25 21-32 mmol/L Anion Gap 11.0 3-11 mmol/L Blood Urea Nitrogen 10 7-18 mg/dl Creatinine 1.50 0.60-1.40 mg/dl Est Creatinine Clear Calc Drug Dose 51.8 ml/min Estimated GFR () 53.9 Estimated GFR (Non- 46.5 BUN/Creatinine Ratio 6.7 10-20 Random Glucose 85 70-99 mg/dl Calcium Level 9.0 8.5-10.1 mg/dl
[2016-12-09] MEDS: GABAPENTIN 400 MG CAP PO SCH ×2 (15:02→21:05)
[2016-12-09 15:40] VITALS: BP 107/66; PULSE 66; TEMP 36.7; O2SAT 90
--- NOTE | 2016-12-09 15:46 | Neurology Consultation ---
Neurology Consultation Date of Consultation: Dec 09, 2016. Attending Physician: Raf Henry MD Primary Care Physician: Raysa Jain M.D. Reason for Consultation: confusion Wernicke encephalopathy History of Present Illness Sven is a 71 y/o male with PMH CAD s/o CABG and stent placement, h/o DVT/PE on Coumadin, COPD with ongoing tobacco use, Dyslipidemia with EtOH abuse. He came to the hospital after report of CP. He also had diaphoresis, SOB and nausea. He had had past NE s his EKG had ST elevation in inferior leads and ST depression in anterior leads. He was taken emergently to the lab asst which revealed 100% acute occlusion/recurrent stent thrombosis of mid RCA along with complete occlusion of the circumflex at the ostium. Completed successful PCI of mid RCA and ostial PDA with 2 ROBBI placed. He was then observed in the ICU in stable condition. He had a previous admission and was suppose to follow up with cardiology but never did. He does not remember why he came to the hospital all information is obtained from chart no family in room. He states he smokes sometimes a PPD of cigarettes is a long time smoker, he also states he drinks at least 2 shots of whisky every day. 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 He states he lives in [place] and has one daughter that lives in [place] and one daughter that lives in the [facility]. denies Current CP, SOB, abdominal pain, weakness, numbness tingling, N, V , vision changes dizziness, light headed. Past Medical/Surgical History Medical Problems: (1) Closed fracture of neck of left humerus Status: Acute (2) Dehydration Status: Acute (3) History of alcohol abuse Status: Chronic (4) Multiple contusions Status: Acute (5) STEMI (ST elevation myocardial infarction) Status: Acute (6) STEMI (ST elevation myocardial infarction) Status: Acute Social History Smoking Status: Current every day smoker Smokeless Tobacco Use: No Alcohol Use: patient reports daily ethanol use of between two and four drinks Drug Use: none Marital Status: (patient is but states that his is estranged since June 2016) Housing Status: lives alone (the patient currently lives alone. 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) Allergies Coded Allergies: No Known Allergies (Unverified , 02/02/16) Current Inpatient Medications Current Inpatient Medications Medications (Trade) Dose Ordered Sig/Nivees Route Start Time Stop Time Status Last Admin Dose Admin Atropine Sulfate (Atropine Sulfate 0.1MG/Ml Inj) 0.5 mg ONE PRN IV 12/04/16 12:15 01/03/17 12:14 Ondansetron HCl (Zofran Inj) 4 mg Q6H PRN IV 12/04/16 12:15 01/03/17 12:14 12/04/16 16:46 4 MG Aspirin (Ecotrin Tab) 81 mg QAM PO 12/05/16 09:00 01/04/17 08:59 12/09/16 08:10 81 MG Atorvastatin Calcium (Lipitor Tab) 80 mg QAM PO 12/05/16 09:00 01/04/17 08:59 12/09/16 08:11 80 MG Acetaminophen (Tylenol Tab) 650 mg Q4H PRN PO 12/04/16 12:15 01/03/17 12:14 Calcium/Vitamin D (Caltrate Plus Tab) 1 tab BID PO 12/04/16 21:00 01/03/17 20:59 12/09/16 08:10 1 TAB Cyanocobalamin (Vitamin B-12 Tab) 1,000 mcg DAILY PO 12/05/16 09:00 01/04/17 08:59 12/09/16 08:11 1,000 MCG Folic Acid (Folvite Tab) 1 mg DAILY PO 12/05/16 09:00 01/04/17 08:59 12/09/16 08:10 1 MG Gabapentin (Neurontin Cap) 400 mg TID PO 12/04/16 14:00 01/03/17 13:59 Future hold 12/05/16 09:35 400 MG Magnesium Hydroxide (Milk Of Magnesia Susp) 30 ml DAILY PRN PO 12/04/16 12:15 01/03/17 12:14 Magnesium Oxide (Mag-Ox Tab) 400 mg BID PO 12/04/16 21:00 01/03/17 20:59 12/09/16 08:10 400 MG Metoprolol Succinate (Toprol Xl Tab) 12.5 mg DAILY PO 12/05/16 09:00 01/04/17 08:59 12/09/16 08:12 12.5 MG Mirtazapine (Remeron Tab) 15 mg HS PO 12/04/16 21:00 01/03/17 20:59 12/08/16 20:34 15 MG Ranitidine HCl (zANTac TAB) 150 mg DAILY PO 12/05/16 09:00 01/04/17 08:59 12/09/16 08:13 150 MG Sertraline HCl (Zoloft Tab) 50 mg DAILY PO 12/05/16 09:00 01/04/17 08:59 12/09/16 08:13 50 MG Ferrous Sulfate (Feosol Tab) 325 mg BIDM PO 12/04/16 16:30 01/03/17 16:29 12/09/16 08:11 325 MG Ticagrelor (Brilinta Cap) 90 mg BID PO 12/04/16 21:00 01/03/17 20:59 12/09/16 08:09 90 MG Lorazepam (Ativan Inj) 1 mg Q4H PRN IV 12/04/16 18:30 01/03/17 18:29 12/08/16 20:37 1 MG Lorazepam 0.5 mg 0.5 mg Q4H PRN IV 12/04/16 18:30 01/03/17 18:29 Lorazepam 1 mg/ Syringe 1 ml @ 1 mls/min Q4H PRN IV 12/04/16 20:30 01/03/17 20:29 Lorazepam/Syringe (Ativan Inj/ Syringe) 1 ml @ 1 mls/min Q4H PRN IV 12/04/16 20:30 01/03/17 20:29 12/04/16 23:04 1 MLS/MIN Thiamine HCl (Vitamin B-1 Tab) 100 mg DAILY PO 12/05/16 18:18 01/04/17 18:17 12/09/16 08:13 100 MG Enteral Nutritional Formula (Boost) 1 can BID PO 12/06/16 09:00 01/05/17 08:59 12/09/16 08:11 1 CAN Docusate Sodium (coLACE SYRUP) 100 mg BID PO 12/06/16 21:00 01/05/17 20:59 12/09/16 08:10 100 MG Enalapril Maleate (Vasotec Tab) 5 mg DAILY PO 12/08/16 09:00 01/07/17 08:59 12/09/16 08:10 5 MG Physical Exam Vital Signs (Past 24 Hrs): Date Time Temp Pulse Resp B/P Pulse Ox O2 Delivery O2 Flow Rate FiO2 12/09/16 11:30 37.1 81 18 111/61 91 Room Air 12/09/16 07:48 37.1 83 18 137/75 90 Room Air 12/09/16 04:00 Room Air 12/09/16 03:38 36.7 70 20 149/83 95 Room Air 12/09/16 00:01 Room Air 12/08/16 22:59 36.8 57 20 161/74 97 Room Air 12/08/16 20:00 Room Air 12/08/16 19:20 36.6 64 18 143/63 91 Room Air 12/08/16 16:00 95 Room Air 12/08/16 15:45 37.0 66 18 107/67 95 Room Air Physical Exam: Constitutional: appearance nourished, healthy and normal Ears, Nose, Mouth and Throat: mucous membranes moist, no injection and skin normal, eyes normal Cardiovascular: normal S-1 and S-2 and regular rate and rhythm Respiratory: bilaterally expiratory wheezing throughout Musculoskeletal: no peripheral edema and good distal pulses Skin: no stigmata of neurocutaneous disease noted and normal and intact Eyes: extraocular muscles intact (EOMI) and pupils equal, round and reactive to light (PERRL), good vascular pulsations disc flat NEUROLOGIC EXAMINATION: Mental status: Alert and interactive Oriented to [facility] and year 2017, [facility] is president Oriented to person Speech fluent with no evidence of aphasia Cranial Nerves smile eye brow raise symmetric, tongue midline Reflexes: Deep tendon reflexes were symmetrical and graded 2/5. Plantar responses were flexor. Sensory: intact to cool and vibration, GT proprioception decreased bilaterally Coordination: finger to nose with no bipass, no cog wheeling no tremor Gait/Stance: lying in bed Motor: Negative for pronator drift of out stretched arms with eyes closed. 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, biceps triceps bilaterally 5/5, hip flex plantar flex ext 5/5 bilaterally Laboratory Results Past 24 Hours: 12/09/16 06:03 Red Blood Count 5.22, Mean Corpuscular Volume 89.7, Mean Corpuscular Hemoglobin 31.4, Mean Corpuscular Hemoglobin Concent 35.0, Mean Platelet Volume 10.0, Neutrophils (%) (Auto) 84.2, Lymphocytes (%) (Auto) 6.8, Monocytes (%) (Auto) 6.3, Eosinophils (%) (Auto) 2.2, Basophils (%) (Auto) 0.2, Neutrophils # (Auto) 10.11, Lymphocytes # (Auto) 0.82, Monocytes # (Auto) 0.76, Eosinophils # (Auto) 0.27, Basophils # (Auto) 0.02 12/09/16 06:03 Test 12/09/16 06:03 White Blood Count 12.02 K/uL (4.8-10.8) Red Blood Count 5.22 M/uL (4.7-6.1) Hemoglobin 16.4 g/dL (14.0-18.0) Hematocrit 46.8 % (42-52) Mean Corpuscular Volume 89.7 fL (80-100) Mean Corpuscular Hemoglobin 31.4 pg (25-34) Mean Corpuscular Hemoglobin Concent 35.0 g/dl (32-36) Platelet Count 212 K/uL (130-400) Mean Platelet Volume 10.0 fL (7.4-10.4) Neutrophils (%) (Auto) 84.2 % Lymphocytes (%) (Auto) 6.8 % Monocytes (%) (Auto) 6.3 % Eosinophils (%) (Auto) 2.2 % Basophils (%) (Auto) 0.2 % Neutrophils # (Auto) 10.11 K/uL (1.4-6.5) Lymphocytes # (Auto) 0.82 K/uL (1.2-3.4) Monocytes # (Auto) 0.76 K/uL (0.11-0.59) Eosinophils # (Auto) 0.27 K/uL (0-0.5) Basophils # (Auto) 0.02 K/uL (0-0.2) RDW Standard Deviation 61.5 fL (36.4-46.3) RDW Coefficient of Variation 18.8 % (11.5-14.5) Immature Granulocyte % (Auto) 0.3 % Immature Granulocyte # (Auto) 0.04 K/uL (0.00-0.02) Prothrombin Time 12.9 SECONDS (9.0-12.0) Prothromb Time International Ratio 1.2 (0.9-1.1) Anion Gap 11.0 mmol/L (3-11) Est Creatinine Clear Calc Drug Dose 51.8 ml/min Estimated GFR () 53.9 Estimated GFR (Non- 46.5 BUN/Creatinine Ratio 6.7 (10-20) Calcium Level 9.0 mg/dl (8.5-10.1) Imaging no neuro imaging done Impression 71 year old s/p cardiac cath with confusion and history of EtOH abuse Plan 1. B12, folate-WNL need RPR done 2. MRI with and without contrast to evaluate for any structure issues and encephalopathy 3. thiame ordered 4. DTs ativan and protocol given 5. chronic smoker urged to quit 6. PT/OT for discharge needs 7. psychiatry of depression 8. further recommendations to follow I have seen and discussed above patient with Dr Loren Kebede, neurology Pt seen and examined. Pt does not currently appear encephalopathic, Change in MS possibly related to EToh withdrawal. Agree with supplemental thiamine. MRI when able with regard to stent THALIA Kebede MD
[2016-12-09 18:53] VITALS: BP 106/64; PULSE 90; TEMP 36.6; O2SAT 95
[2016-12-09] MEDS: MIRTAZAPINE TAB 15 MG TAB PO SCH (21:04)
[2016-12-09 23:48] VITALS: BP 104/61; PULSE 64; TEMP 36.5; O2SAT 92
[2016-12-10 03:42] VITALS: BP 112/70; PULSE 60; TEMP 36.7; O2SAT 93
[2016-12-10 06:49] LABS: INR 1.1 (0.9-1.1)
[2016-12-10 06:55] LABS: BASO % 0.3 %; BASO ABS # 0.03 K/uL (0-0.2); COMPLETE YES; EOS % 4.4 %; HEMATOCRIT 41.3 % (42-52); IG% 0.4 %; LYMPH % 15.7 %; LYMPH ABS # 1.44 K/uL (1.2-3.4); MEAN CORPUSCULAR HEMOGLOBIN 30.7 pg (25-34); MEAN CORPUSCULAR HGB CONC 34.1 g/dl (32-36); MEAN PLATELET VOLUME 10.6 fL (7.4-10.4); NEUT % 71.2 %; PLATELET COUNT 221 K/uL (130-400); RED BLOOD COUNT 4.59 M/uL (4.7-6.1); WHITE BLOOD COUNT 9.15 K/uL (4.8-10.8)
[2016-12-10 07:12] LABS: BUN/CREATININE RATIO 9.6 (10-20); CALCIUM 8.3 mg/dl (8.5-10.1); CREATININE 1.6 mg/dl (0.60-1.40); POTASSIUM 4.1 mmol/L (3.5-5.1)
[2016-12-10 07:43] VITALS: BP 104/63; PULSE 66; TEMP 36.9; O2SAT 92
[2016-12-10] MEDS: DOCUSATE SODIUM 100 MG/10 ML UDC PO SCH ×2 (07:58→19:52)
[2016-12-10] MEDS: GABAPENTIN 400 MG CAP PO SCH ×3 (07:58→19:51)
[2016-12-10] MEDS: ENALAPRIL MALEATE 5 MG TAB PO SCH (07:59)
[2016-12-10] MEDS: ASPIRIN 81 MG ECTAB PO SCH (07:59)
[2016-12-10] MEDS: CYANOCOBALAMIN 500 MCG TAB (VIT B-12) PO SCH (07:59)
[2016-12-10] MEDS: MAGNESIUM OXIDE 400 MG TAB PO SCH ×2 (07:59→19:51)
[2016-12-10] MEDS: CALCIUM 600MG + VIT D 400 IU TAB PO SCH ×2 (07:59→19:50)
[2016-12-10] MEDS: TICAGRELOR 90 MG TAB PO SCH ×2 (07:59→19:50)
[2016-12-10] MEDS: FERROUS SULFATE 325 MG TAB PO SCH ×2 (07:59→16:02)
[2016-12-10] MEDS: ATORVASTATIN 40 MG TAB PO SCH (07:59)
[2016-12-10] MEDS: METOPROLOL SUCC 25MG EXT REL TAB PO SCH (08:00)
[2016-12-10] MEDS: SERTRALINE HCL 50 MG TAB PO SCH (08:00)
[2016-12-10] MEDS: THIAMINE HCL 100 MG TAB PO SCH (08:00)
[2016-12-10] MEDS: BOOST VANILLA PO SCH ×4 (08:00→20:13)
[2016-12-10] MEDS: RANITIDINE HCL 150 MG TAB PO SCH (08:00)
--- NOTE | 2016-12-10 11:14 | Cardiology Follow-Up ---
Subjective Subjective Date of Service: Dec 10, 2016. Pt evaluation today including: conversation w/ patient, physical exam, chart review, lab review, review of studies, review of inpatient medication list Additional Details: Denies chest pain or shortness of breath. No events on telemetry. Problem List Medical Problems: (1) Closed fracture of neck of left humerus Status: Acute (2) Dehydration Status: Acute (3) History of alcohol abuse Status: Chronic (4) Multiple contusions Status: Acute (5) STEMI (ST elevation myocardial infarction) Status: Acute (6) STEMI (ST elevation myocardial infarction) Status: Acute Review of Systems Constitutional: No fever Respiratory: No shortness of breath Cardiac: No chest pain Abdomen: No nausea, No pain Neurologic: + memory loss, + problem reported (Confusion) Psychiatric: + substance abuse Heme: No abnormal bleeding/bruising Endo: No fatigue Skin: No rash Objective Vital Signs Last Vital Signs Documentation Date Time Temp Pulse Resp B/P Pulse Ox O2 Delivery O2 Flow Rate FiO2 12/10/16 07:43 36.9 66 16 104/63 92 Room Air 12/04/16 12:00 4 Physical Exam: General Appearance: WD/WN, no apparent distress Respiratory/Chest: lungs clear, normal breath sounds, no respiratory distress Cardiovascular: regular rate, rhythm, no edema, + systolic murmur (2/6 at LUSB) Abdomen: non tender, soft Extremities: no pedal edema, no calf tenderness, + pertinent finding (right femoral access site - no hematoma, bruits or ecchymosis. Mildly tender) Neurologic/Psychiatric: alert, + disoriented, + pertinent finding (Confused , AOx1) Skin: warm/dry, no rash Lymphatic: no adenopathy Assessment and Plan 1. Inferior STEMI - s/p PCI with ROBBI x2 to mid RCA, ostial PDA 2. Recurrent stent thrombosis -- occurring in the setting of significant instent restenosis(?neoatherosclerosis), distal vessel CAD, med noncompliance 3. Confusion/? Dementia 4. Ongoing tobacco abuse 5. Alcohol abuse, withdrawal 6. History of VTE Remains stable from a cardiac standpoint. -- On DAPT with ASA/Brillanta --> transition to ASA/Plavix on discharge - Prior to discharge will need to be loaded on Plavix 300mg -- On high-dose statin, beta-don and ALON. -- From a cardiac standpoint OK for discharge to rehab when safe from a medical standpoint. 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 Medications: Current Inpatient Medications Medications (Trade) Dose Ordered Sig/Nieves Route Start Time Stop Time Status Last Admin Dose Admin Atropine Sulfate (Atropine Sulfate 0.1MG/Ml Inj) 0.5 mg ONE PRN IV 12/04/16 12:15 01/03/17 12:14 Ondansetron HCl (Zofran Inj) 4 mg Q6H PRN IV 12/04/16 12:15 01/03/17 12:14 12/04/16 16:46 4 MG Aspirin (Ecotrin Tab) 81 mg QAM PO 12/05/16 09:00 01/04/17 08:59 12/10/16 07:59 81 MG Atorvastatin Calcium (Lipitor Tab) 80 mg QAM PO 12/05/16 09:00 01/04/17 08:59 12/10/16 07:59 80 MG Acetaminophen (Tylenol Tab) 650 mg Q4H PRN PO 12/04/16 12:15 01/03/17 12:14 Calcium/Vitamin D (Caltrate Plus Tab) 1 tab BID PO 12/04/16 21:00 01/03/17 20:59 12/10/16 07:59 1 TAB Cyanocobalamin (Vitamin B-12 Tab) 1,000 mcg DAILY PO 12/05/16 09:00 01/04/17 08:59 12/10/16 07:59 1,000 MCG Folic Acid (Folvite Tab) 1 mg DAILY PO 12/05/16 09:00 01/04/17 08:59 12/10/16 07:58 1 MG Gabapentin (Neurontin Cap) 400 mg TID PO 12/04/16 14:00 01/03/17 13:59 Future hold 12/10/16 07:58 400 MG Magnesium Hydroxide (Milk Of Magnesia Susp) 30 ml DAILY PRN PO 12/04/16 12:15 01/03/17 12:14 Magnesium Oxide (Mag-Ox Tab) 400 mg BID PO 12/04/16 21:00 01/03/17 20:59 12/10/16 07:59 400 MG Metoprolol Succinate (Toprol Xl Tab) 12.5 mg DAILY PO 12/05/16 09:00 01/04/17 08:59 12/10/16 08:00 12.5 MG Mirtazapine (Remeron Tab) 15 mg HS PO 12/04/16 21:00 01/03/17 20:59 12/09/16 21:04 15 MG Ranitidine HCl (zANTac TAB) 150 mg DAILY PO 12/05/16 09:00 01/04/17 08:59 12/10/16 08:00 150 MG Sertraline HCl (Zoloft Tab) 50 mg DAILY PO 12/05/16 09:00 01/04/17 08:59 12/10/16 08:00 50 MG Ferrous Sulfate (Feosol Tab) 325 mg BIDM PO 12/04/16 16:30 01/03/17 16:29 12/10/16 07:59 325 MG Ticagrelor (Brilinta Cap) 90 mg BID PO 12/04/16 21:00 01/03/17 20:59 12/10/16 07:59 90 MG Lorazepam (Ativan Inj) 1 mg Q4H PRN IV 12/04/16 18:30 01/03/17 18:29 12/08/16 20:37 1 MG Lorazepam 0.5 mg 0.5 mg Q4H PRN IV 12/04/16 18:30 01/03/17 18:29 Lorazepam 1 mg/ Syringe 1 ml @ 1 mls/min Q4H PRN IV 12/04/16 20:30 01/03/17 20:29 Lorazepam/Syringe (Ativan Inj/ Syringe) 1 ml @ 1 mls/min Q4H PRN IV 12/04/16 20:30 01/03/17 20:29 12/04/16 23:04 1 MLS/MIN Thiamine HCl (Vitamin B-1 Tab) 100 mg DAILY PO 12/05/16 18:18 01/04/17 18:17 12/10/16 08:00 100 MG Enteral Nutritional Formula (Boost) 1 can BID PO 12/06/16 09:00 01/05/17 08:59 12/10/16 08:00 1 CAN Docusate Sodium (coLACE SYRUP) 100 mg BID PO 12/06/16 21:00 01/05/17 20:59 12/10/16 07:58 100 MG Enalapril Maleate (Vasotec Tab) 5 mg DAILY PO 12/08/16 09:00 01/07/17 08:59 12/10/16 07:59 5 MG Lab Results: 12/10/16 05:59 Red Blood Count 4.59, Mean Corpuscular Volume 90.0, Mean Corpuscular Hemoglobin 30.7, Mean Corpuscular Hemoglobin Concent 34.1, Mean Platelet Volume 10.6, Neutrophils (%) (Auto) 71.2, Lymphocytes (%) (Auto) 15.7, Monocytes (%) (Auto) 8.0, Eosinophils (%) (Auto) 4.4, Basophils (%) (Auto) 0.3, Neutrophils # (Auto) 6.51, Lymphocytes # (Auto) 1.44, Monocytes # (Auto) 0.73, Eosinophils # (Auto) 0.40, Basophils # (Auto) 0.03 12/10/16 05:59 Test 12/09/16 15:40 12/10/16 05:59 Rapid Plasma Reagin NONREACTIVE (NONREACT) White Blood Count 9.15 K/uL (4.8-10.8) Red Blood Count 4.59 M/uL (4.7-6.1) Hemoglobin 14.1 g/dL (14.0-18.0) Hematocrit 41.3 % (42-52) Mean Corpuscular Volume 90.0 fL (80-100) Mean Corpuscular Hemoglobin 30.7 pg (25-34) Mean Corpuscular Hemoglobin Concent 34.1 g/dl (32-36) Platelet Count 221 K/uL (130-400) Mean Platelet Volume 10.6 fL (7.4-10.4) Neutrophils (%) (Auto) 71.2 % Lymphocytes (%) (Auto) 15.7 % Monocytes (%) (Auto) 8.0 % Eosinophils (%) (Auto) 4.4 % Basophils (%) (Auto) 0.3 % Neutrophils # (Auto) 6.51 K/uL (1.4-6.5) Lymphocytes # (Auto) 1.44 K/uL (1.2-3.4) Monocytes # (Auto) 0.73 K/uL (0.11-0.59) Eosinophils # (Auto) 0.40 K/uL (0-0.5) Basophils # (Auto) 0.03 K/uL (0-0.2) RDW Standard Deviation 62.8 fL (36.4-46.3) RDW Coefficient of Variation 19.1 % (11.5-14.5) Immature Granulocyte % (Auto) 0.4 % Immature Granulocyte # (Auto) 0.04 K/uL (0.00-0.02) Prothrombin Time 12.0 SECONDS (9.0-12.0) Prothromb Time International Ratio 1.1 (0.9-1.1) Anion Gap 10.0 mmol/L (3-11) Est Creatinine Clear Calc Drug Dose 48.6 ml/min Estimated GFR () 49.9 Estimated GFR (Non- 43.0 BUN/Creatinine Ratio 9.6 (10-20) Calcium Level 8.3 mg/dl (8.5-10.1)
[2016-12-10 11:50] VITALS: BP 111/71; PULSE 57; TEMP 36.6; O2SAT 90
--- NOTE | 2016-12-10 15:29 | Progress Note ---
Internal Med Progress Note Date of Service: Dec 10, 2016. Provider Documentation: SUBJECTIVE: resting comfortably denies any chest pain or sob afebrile no nausea or abdominal pain OBJECTIVE: Vital Signs-as noted below Exam: General-alert and awake and oriented. Not in distress ENT-normal hearing Neck-no neck masses Lungs-cta b/l no wheezing or crackles Heart-s1 and s2 heard, regular rate and rhythm no murmurs Abdomen-soft bowel sounds present non tender no distension Extremities-no edema no erythema Neuro-alert and awake moves extremities Lab data as noted below. ASSESSMENT & PLAN: STEMI : Presented with chest pain st elevation in inferior leads and with 100% occlusion of RCA s/p PCI with ROBBI x2 to mid RCA, ostial PDA Recurrent stent thrombosis H/O medication non compliance prior hx of ROBBI on RCA in Sep 2016 On Aspirin, Brilinta>>> Need to transition to ASA/Plavix (will need to be loaded on Plavix 300mg prior to DC) Also to continue statin , beta don, ACEI stable currently CONFUSION /METABOLIC ENCEPHALOPATHY : ? Underlying dementia Per Daughter -at baseline -pt has been experiencing forgetfulness , delusion pt sometimes -gets word finding difficulties , confabulate things , makes up strange stories -Wernicke's Encephalopathy ? 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 DVT PX: sub q Heparin DISPOSITION: awaiting placement for rehab appreciate social service help Vital Signs: Date Time Temp Pulse Resp B/P Pulse Ox O2 Delivery O2 Flow Rate FiO2 12/10/16 12:00 Room Air 12/10/16 11:50 36.6 57 15 111/71 90 Room Air 12/10/16 08:00 Room Air 12/10/16 07:43 36.9 66 16 104/63 92 Room Air 12/10/16 04:02 Room Air 12/10/16 03:42 36.7 60 18 112/70 93 Room Air 12/10/16 00:00 Room Air 12/09/16 23:48 36.5 64 20 104/61 92 Room Air 12/09/16 20:00 Room Air 12/09/16 18:53 36.6 90 18 106/64 95 Room Air 12/09/16 15:40 36.7 66 18 107/66 90 Room Air Lab Results: Results Past 24 Hours Test 12/09/16 15:40 12/10/16 05:59 Range/Units Rapid Plasma Reagin NONREACTIVE NONREACT White Blood Count 9.15 4.8-10.8 K/uL Red Blood Count 4.59 4.7-6.1 M/uL Hemoglobin 14.1 14.0-18.0 g/dL Hematocrit 41.3 42-52 % Mean Corpuscular Volume 90.0 80-100 fL Mean Corpuscular Hemoglobin 30.7 25-34 pg Mean Corpuscular Hemoglobin Concent 34.1 32-36 g/dl Platelet Count 221 130-400 K/uL Mean Platelet Volume 10.6 7.4-10.4 fL Neutrophils (%) (Auto) 71.2 % Lymphocytes (%) (Auto) 15.7 % Monocytes (%) (Auto) 8.0 % Eosinophils (%) (Auto) 4.4 % Basophils (%) (Auto) 0.3 % Neutrophils # (Auto) 6.51 1.4-6.5 K/uL Lymphocytes # (Auto) 1.44 1.2-3.4 K/uL Monocytes # (Auto) 0.73 0.11-0.59 K/uL Eosinophils # (Auto) 0.40 0-0.5 K/uL Basophils # (Auto) 0.03 0-0.2 K/uL RDW Standard Deviation 62.8 36.4-46.3 fL RDW Coefficient of Variation 19.1 11.5-14.5 % Immature Granulocyte % (Auto) 0.4 % Immature Granulocyte # (Auto) 0.04 0.00-0.02 K/uL Prothrombin Time 12.0 9.0-12.0 SECONDS Prothromb Time International Ratio 1.1 0.9-1.1 Sodium Level 134 136-145 mmol/L Potassium Level 4.1 3.5-5.1 mmol/L Chloride Level 100 98-107 mmol/L Carbon Dioxide Level 24 21-32 mmol/L Anion Gap 10.0 3-11 mmol/L Blood Urea Nitrogen 15 7-18 mg/dl Creatinine 1.60 0.60-1.40 mg/dl Est Creatinine Clear Calc Drug Dose 48.6 ml/min Estimated GFR () 49.9 Estimated GFR (Non- 43.0 BUN/Creatinine Ratio 9.6 10-20 Random Glucose 89 70-99 mg/dl Calcium Level 8.3 8.5-10.1 mg/dl
--- NOTE | 2016-12-10 15:56 | Neurology Progress Notes ---
Neurology Progress Note Date of Service Dec 10, 2016. Taylor Machuca is a 71 y/o male with PMH CAD s/o CABG and stent placement, h/o DVT/PE on Coumadin, COPD with ongoing tobacco use, Dyslipidemia with EtOH abuse. He came to the hospital after report of CP. He also had diaphoresis, SOB and nausea. He had had past SD s his EKG had ST elevation in inferior leads and ST depression in anterior leads. He was taken emergently to the laborer cement gun placing which revealed 100% acute occlusion/recurrent stent thrombosis of mid RCA along with complete occlusion of the circumflex at the ostium. Completed successful PCI of mid RCA and ostial PDA with 2 ROBBI placed. He was then observed in the ICU in stable condition. He had a previous admission and was suppose to follow up with cardiology but never did. He does not remember why he came to the hospital all information is obtained from chart no family in room. He states he smokes sometimes a PPD of cigarettes is a long time smoker, he also states he drinks at least 2 shots of whisky every day. 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 He states he lives in [place] and has one daughter that lives in [place] and one daughter that lives in the [facility]. he states he is feeling better and wants to go home. denies Current CP, SOB, abdominal pain, weakness, numbness tingling, N, V, vision changes dizziness, light headed. Objective Date Time Temp Pulse Resp B/P Pulse Ox O2 Delivery O2 Flow Rate FiO2 12/10/16 12:00 Room Air 12/10/16 11:50 36.6 57 15 111/71 90 Room Air 12/10/16 08:00 Room Air 12/10/16 07:43 36.9 66 16 104/63 92 Room Air 12/10/16 04:02 Room Air 12/10/16 03:42 36.7 60 18 112/70 93 Room Air 12/10/16 00:00 Room Air 12/09/16 23:48 36.5 64 20 104/61 92 Room Air 12/09/16 20:00 Room Air 12/09/16 18:53 36.6 90 18 106/64 95 Room Air Last 24 Hours Test 12/10/16 05:59 White Blood Count 9.15 K/uL Red Blood Count 4.59 M/uL Hemoglobin 14.1 g/dL Hematocrit 41.3 % Mean Corpuscular Volume 90.0 fL Mean Corpuscular Hemoglobin 30.7 pg Mean Corpuscular Hemoglobin Concent 34.1 g/dl Platelet Count 221 K/uL Mean Platelet Volume 10.6 fL Neutrophils (%) (Auto) 71.2 % Lymphocytes (%) (Auto) 15.7 % Monocytes (%) (Auto) 8.0 % Eosinophils (%) (Auto) 4.4 % Basophils (%) (Auto) 0.3 % Neutrophils # (Auto) 6.51 K/uL Lymphocytes # (Auto) 1.44 K/uL Monocytes # (Auto) 0.73 K/uL Eosinophils # (Auto) 0.40 K/uL Basophils # (Auto) 0.03 K/uL RDW Standard Deviation 62.8 fL RDW Coefficient of Variation 19.1 % Immature Granulocyte % (Auto) 0.4 % Immature Granulocyte # (Auto) 0.04 K/uL Prothrombin Time 12.0 SECONDS Prothromb Time International Ratio 1.1 Sodium Level 134 mmol/L Potassium Level 4.1 mmol/L Chloride Level 100 mmol/L Carbon Dioxide Level 24 mmol/L Anion Gap 10.0 mmol/L Blood Urea Nitrogen 15 mg/dl Creatinine 1.60 mg/dl Est Creatinine Clear Calc Drug Dose 48.6 ml/min Estimated GFR () 49.9 Estimated GFR (Non- 43.0 BUN/Creatinine Ratio 9.6 Random Glucose 89 mg/dl Calcium Level 8.3 mg/dl Imaging: MRI pending Exam: Physical Exam: Constitutional:, appearance nourished, healthy and normal Ears, Nose, Mouth and Throat: mucous membranes moist, no injection and skin normal, eyes normal Cardiovascular: normal S-1 and S-2 and regular rate and rhythm Respiratory: clear to auscultation (CTA) and no rales, rhonchi or wheeze Musculoskeletal: no peripheral edema and good distal pulses Skin: no stigmata of neurocutaneous disease noted and normal and intact Eyes: extraocular muscles intact (EOMI) and pupils equal, round and reactive to light (PERRL) NEUROLOGIC EXAMINATION: Mental status: Alert and interactive Oriented knows [facility] 2016, lives in [place], can stick out tongue close eyes and point to ceiling with right hand Oriented to person Speech fluent with no evidence of aphasia Cranial Nerves smile eye brow raise symmetric tongue midline Reflexes: Deep tendon reflexes were symmetrical and graded 2/5. Plantar responses were flexor. 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 hip flex plantar flex ext 5/5 bilaterally Current Inpatient Medications Medications (Trade) Dose Ordered Sig/Nieves Route Start Time Stop Time Status Last Admin Dose Admin Atropine Sulfate (Atropine Sulfate 0.1MG/Ml Inj) 0.5 mg ONE PRN IV 12/04/16 12:15 01/03/17 12:14 Ondansetron HCl (Zofran Inj) 4 mg Q6H PRN IV 12/04/16 12:15 01/03/17 12:14 12/04/16 16:46 4 MG Aspirin (Ecotrin Tab) 81 mg QAM PO 12/05/16 09:00 01/04/17 08:59 12/10/16 07:59 81 MG Atorvastatin Calcium (Lipitor Tab) 80 mg QAM PO 12/05/16 09:00 01/04/17 08:59 12/10/16 07:59 80 MG Acetaminophen (Tylenol Tab) 650 mg Q4H PRN PO 12/04/16 12:15 01/03/17 12:14 Calcium/Vitamin D (Caltrate Plus Tab) 1 tab BID PO 12/04/16 21:00 01/03/17 20:59 12/10/16 07:59 1 TAB Cyanocobalamin (Vitamin B-12 Tab) 1,000 mcg DAILY PO 12/05/16 09:00 01/04/17 08:59 12/10/16 07:59 1,000 MCG Folic Acid (Folvite Tab) 1 mg DAILY PO 12/05/16 09:00 01/04/17 08:59 12/10/16 07:58 1 MG Gabapentin (Neurontin Cap) 400 mg TID PO 12/04/16 14:00 01/03/17 13:59 Future hold 12/10/16 14:02 400 MG Magnesium Hydroxide (Milk Of Magnesia Susp) 30 ml DAILY PRN PO 12/04/16 12:15 01/03/17 12:14 Magnesium Oxide (Mag-Ox Tab) 400 mg BID PO 12/04/16 21:00 01/03/17 20:59 12/10/16 07:59 400 MG Metoprolol Succinate (Toprol Xl Tab) 12.5 mg DAILY PO 12/05/16 09:00 01/04/17 08:59 12/10/16 08:00 12.5 MG Mirtazapine (Remeron Tab) 15 mg HS PO 12/04/16 21:00 01/03/17 20:59 12/09/16 21:04 15 MG Ranitidine HCl (zANTac TAB) 150 mg DAILY PO 12/05/16 09:00 01/04/17 08:59 12/10/16 08:00 150 MG Sertraline HCl (Zoloft Tab) 50 mg DAILY PO 12/05/16 09:00 01/04/17 08:59 12/10/16 08:00 50 MG Ferrous Sulfate (Feosol Tab) 325 mg BIDM PO 12/04/16 16:30 01/03/17 16:29 12/10/16 07:59 325 MG Ticagrelor (Brilinta Cap) 90 mg BID PO 12/04/16 21:00 01/03/17 20:59 12/10/16 07:59 90 MG Lorazepam (Ativan Inj) 1 mg Q4H PRN IV 12/04/16 18:30 01/03/17 18:29 12/08/16 20:37 1 MG Lorazepam 0.5 mg 0.5 mg Q4H PRN IV 12/04/16 18:30 01/03/17 18:29 Lorazepam 1 mg/ Syringe 1 ml @ 1 mls/min Q4H PRN IV 12/04/16 20:30 01/03/17 20:29 Lorazepam/Syringe (Ativan Inj/ Syringe) 1 ml @ 1 mls/min Q4H PRN IV 12/04/16 20:30 01/03/17 20:29 12/04/16 23:04 1 MLS/MIN Thiamine HCl (Vitamin B-1 Tab) 100 mg DAILY PO 12/05/16 18:18 01/04/17 18:17 12/10/16 08:00 100 MG Enteral Nutritional Formula (Boost) 1 can BID PO 12/06/16 09:00 01/05/17 08:59 12/10/16 08:00 1 CAN Docusate Sodium (coLACE SYRUP) 100 mg BID PO 12/06/16 21:00 01/05/17 20:59 12/10/16 07:58 100 MG Enalapril Maleate (Vasotec Tab) 5 mg DAILY PO 12/08/16 09:00 01/07/17 08:59 12/10/16 07:59 5 MG Impression 71 year old s/p cardiac cath with confusion and history of EtOH abuse Plan 1. B12, folate RPR-WNL 2. MRI with and without contrast to evaluate for any structure issues and encephalopathy 3. thiame ordered 4. DTs ativan and protocol given 5. chronic smoker urged to quit urged to quit EtOH use 6. PT/OT for discharge needs 7. psychiatry of depression 8. further recommendations to follow once MRI is completed 9. if not done in the past carotid doppler as out patient will see in our office after discharge for further evaluation of encephalopathy , Loren Reynolds PAC, schedule I have seen and discussed above patient with Dr Loren Kebede, neurology Pt seen and examined, awake, alert, oriented. Imp delirium, improving, post cardiac cath and stent placement, related to ETOH withdrawl MRI if able given stent, as event in setting of acute coronary syndrome. THALIA Kebede MD
[2016-12-10 16:05] VITALS: BP 109/68; PULSE 55; TEMP 36.7; O2SAT 95
[2016-12-10 19:47] VITALS: BP 145/78; PULSE 54; TEMP 36.9; O2SAT 99
[2016-12-10] MEDS: MIRTAZAPINE TAB 15 MG TAB PO SCH (19:50)
[2016-12-11 00:15] VITALS: BP 152/79; PULSE 52; TEMP 36.5; O2SAT 95
[2016-12-11 04:00] VITALS: BP 111/74; PULSE 74; TEMP 36.9; O2SAT 93
[2016-12-11 05:08] LABS: INR 1.1 (0.9-1.1); PROTHROMBIN TIME (PATIENT) 11.4 SECONDS (9.0-12.0)
[2016-12-11 08:24] VITALS: BP 115/69; PULSE 84; TEMP 36.8; O2SAT 96
[2016-12-11] MEDS: ATORVASTATIN 40 MG TAB PO SCH (08:26)
[2016-12-11] MEDS: CYANOCOBALAMIN 500 MCG TAB (VIT B-12) PO SCH (08:26)
[2016-12-11] MEDS: METOPROLOL SUCC 25MG EXT REL TAB PO SCH (08:26)
[2016-12-11] MEDS: SERTRALINE HCL 50 MG TAB PO SCH (08:26)
[2016-12-11] MEDS: FERROUS SULFATE 325 MG TAB PO SCH ×2 (08:26→17:08)
[2016-12-11] MEDS: ASPIRIN 81 MG ECTAB PO SCH (08:26)
[2016-12-11] MEDS: RANITIDINE HCL 150 MG TAB PO SCH (08:26)
[2016-12-11] MEDS: THIAMINE HCL 100 MG TAB PO SCH (08:26)
[2016-12-11] MEDS: CALCIUM 600MG + VIT D 400 IU TAB PO SCH ×2 (08:27→20:02)
[2016-12-11] MEDS: ENALAPRIL MALEATE 5 MG TAB PO SCH (08:27)
[2016-12-11] MEDS: TICAGRELOR 90 MG TAB PO SCH ×2 (08:27→20:01)
[2016-12-11] MEDS: BOOST VANILLA PO SCH ×4 (08:28→19:58)
[2016-12-11] MEDS: DOCUSATE SODIUM 100 MG/10 ML UDC PO SCH ×2 (08:28→19:59)
[2016-12-11] MEDS: MAGNESIUM OXIDE 400 MG TAB PO SCH ×2 (08:28→20:01)
[2016-12-11] MEDS: GABAPENTIN 400 MG CAP PO SCH ×3 (08:34→20:00)
[2016-12-11 11:50] VITALS: BP 109/64; PULSE 78; TEMP 36.9; O2SAT 99
--- NOTE | 2016-12-11 13:39 | Progress Note ---
Internal Med Progress Note Date of Service: Dec 11, 2016. Provider Documentation: SUBJECTIVE: Patient is seen and examined at bedside. States feeling well. Confusion seems to be improved. Patient's friend at bedside. Denies any chest Pain, SOB, abd pain. offers no other complaints. OBJECTIVE: Vital Signs-as noted below Physical Exam: General Appearance:Moderately built and nourished, no apparent distress Head: normocephalic, Atraumatic Eyes: normal inspection, EOMI, PERRLA Neck: supple, Trachea midline Respiratory/Chest: Normal breath sounds, CTA, No accessory muscle use Cardiovascular: S1, S2, + systolic murmur Abdomen/GI:Soft, Non tender, Bowel sounds present Extremities/Musculoskelatal:normal inspection, no edema Neurologic/Psych:+ intermittent confusion, grossly no focal neurological deficits Skin: normal color, warm Lab data as noted below. ASSESSMENT & PLAN: STEMI : s/p PCI with ROBBI x2 to mid RCA, ostial PDA Recurrent stent thrombosis H/O medication non compliance prior hx of ROBBI on RCA in Sep 2016 Patient presented with Chest pain and ST elevation in Inf lead underwent emergent Cardiac cath revealed 100 % occlusion of RCA Appreciate Cardiology help Continue Aspirin, Brilinta>>> Need to transition to ASA/Plavix (will need to be loaded on Plavix 300mg prior to DC) Also continue statin , beta don, ACEI Will discontinue brilinta after tonight dose and start plavix tomorrow CONFUSION /METABOLIC ENCEPHALOPATHY : ? Underlying dementia Per Daughter -at baseline -pt has been experiencing forgetfulness , delusion Patient got form his approx 1 yr back -his ETOH abuse worsened symptom worsened in past 1 year since discharge from [facility] long time hx of Significant ETOH abuse pt sometimes -gets word finding difficulties , confabulate things , makes up strange stories -Wernicke's Encephalopathy neuro checks fall precaution Plan to get MRI brain today Neurology following HYPOTENSION : Resolved Possibly due to Neurontin -ETOH withdrawal protocol has been getting weaned off Continue reduced ACEI dose -Enalapril 5 mg PO daily cont to monitor in tele ETOH ABUSE : Per Daughter patient is 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 was sober for past 9-10 years; lapsed into drinking secondary to separation from Last drink was day before STEMI -as per daughter caution for withdrawal /DT Continue Neurontin /Ativan as per ETOH withdrawal protocol Continue thiamine/Folic acid 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 HX OF PE /DVT : Patient was supposed to be on Coumadin doubt compliance INR 1.1 on presentation given hx of delirium/ETOH abuse /fall /compliance issue poor candidate for senior living anticoagulation Coumadin discontinued DYSPHAGIA /HX OF ESOPHAGEAL STRICTURE : H/O Esophageal stricture -requiring EGD dilatation in past as per daughter does not follow with GI mechanical soft diet crush meds when possible aspiration precaution Speech eval:Mech soft diet DEPRESSION H/O depression , was seen by Psychiatry team at [facility] -Dr Barker in past Pat was on Zoloft at home: not been taking as per Daughter Continue Zoloft, Remeron Appreciate Psych help: Needs follow up as outpatient DVT PX: sub q Heparin DISPOSITION: Continue to monitor in Tele manager student services consulted Follow up with PCP Follow up with Dr.Christopher Ferro, Cardiology in 2-3 weeks. Plan to discharge to [facility] tomorrow if stable Vital Signs: Date Time Temp Pulse Resp B/P Pulse Ox O2 Delivery O2 Flow Rate FiO2 12/11/16 12:00 Room Air 12/11/16 11:50 36.9 78 16 109/64 99 12/11/16 08:24 36.8 84 18 115/69 96 12/11/16 08:00 Room Air 12/11/16 04:00 Room Air 12/11/16 04:00 36.9 74 18 111/74 93 12/11/16 00:15 36.5 52 18 152/79 95 Room Air 12/11/16 00:00 Room Air 12/10/16 20:00 Room Air 12/10/16 19:47 36.9 54 18 145/78 99 12/10/16 16:05 36.7 55 18 109/68 95 12/10/16 16:00 Room Air Lab Results: Results Past 24 Hours Test 12/11/16 04:35 Range/Units Prothrombin Time 11.4 9.0-12.0 SECONDS Prothromb Time International Ratio 1.1 0.9-1.1
[2016-12-11] MEDS ORDERED: GADAVIST IV PRN (14:30)
--- NOTE | 2016-12-11 14:42 | DIAGNOSTIC IMAGING REPORT ---
MRI OF THE BRAIN WITHOUT AND WITH IV CONTRAST CLINICAL HISTORY: Mental status change. Encephalopathy. History of ethanol abuse. COMPARISON STUDY: Head CT dated 02/02/2016 TECHNIQUE: MRI of the brain was performed from the vertex to the skull base utilizing various T1 and T2 weighted sequences. Following the IV administration of 8 mL of Gadavist contrast, additional enhanced images were obtained. FINDINGS: Sagittal T1, axial diffusion, proton density and T2 weighted axial, coronal FLAIR, and pre and post axial T1-weighted images were acquired. These were supplemented with post gadolinium coronal T1 weighted images. No intra or extra-axial mass lesions are visualized. Axial diffusion-weighted images reveal no evidence of acute or subacute infarction. There is no evidence of ventricular dilatation. Proton density T2-weighted and FLAIR images reveal scattered foci of increased T2 signal within the white matter, likely on a small vessel basis. There is an old lacunar infarct in the right thalamus. There are no abnormal flow voids. There is no evidence of pathologic enhancement. There is moderate mucosal thickening within the maxilla sinuses. There is trace\E\sinus fluid. There is trace sphenoid sinus fluid. There is mild mucosal disease in the ethmoids. IMPRESSION: 1. No acute intracranial findings 2. No evidence of acute or subacute infarction 3. No evidence of intracranial mass 4. Foci of increased T2 signal within the white matter likely a small vessel basis. Old lacunar infarct involving the right thalamus 5. Paranasal sinus inflammatory change Electronically signed by: Eladio Alvarado M.D. 12/11/2016 2:40 PM Dictated Date/Time: 12/11/2016 2:37 PM
--- NOTE | 2016-12-11 15:05 | Neurology Progress Notes ---
Neurology Progress Note Date of Service Dec 11, 2016. Taylor Machuca is a 71 y/o male with PMH CAD s/o CABG and stent placement, h/o DVT/PE on Coumadin, COPD with ongoing tobacco use, Dyslipidemia with EtOH abuse. He came to the hospital after report of CP. He also had diaphoresis, SOB and nausea. He had had past IA s his EKG had ST elevation in inferior leads and ST depression in anterior leads. He was taken emergently to the greenskeeper laborer which revealed 100% acute occlusion/recurrent stent thrombosis of mid RCA along with complete occlusion of the circumflex at the ostium. Completed successful PCI of mid RCA and ostial PDA with 2 ROBBI placed. He was then observed in the ICU in stable condition. He had a previous admission and was suppose to follow up with cardiology but never did. He does not remember why he came to the hospital all information is obtained from chart no family in room. He states he smokes sometimes a PPD of cigarettes is a long time smoker, he also states he drinks at least 2 shots of whisky every day. 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 He states he lives in [place] and has one daughter that lives in [place] and one daughter that lives in the [facility]. Today he went for the MRI which was reviewed with patient. Plan is to get him to rehab tomorrow likely [facility]. denies CP, SOB, abdominal pain, weakness, numbness, tingling, N, V, swallowing difficulties. Objective Date Time Temp Pulse Resp B/P Pulse Ox O2 Delivery O2 Flow Rate FiO2 12/11/16 12:00 Room Air 12/11/16 11:50 36.9 78 16 109/64 99 12/11/16 08:24 36.8 84 18 115/69 96 12/11/16 08:00 Room Air 12/11/16 04:00 Room Air 12/11/16 04:00 36.9 74 18 111/74 93 12/11/16 00:15 36.5 52 18 152/79 95 Room Air 12/11/16 00:00 Room Air 12/10/16 20:00 Room Air 12/10/16 19:47 36.9 54 18 145/78 99 12/10/16 16:05 36.7 55 18 109/68 95 12/10/16 16:00 Room Air Last 24 Hours Test 12/11/16 04:35 Prothrombin Time 11.4 SECONDS Prothromb Time International Ratio 1.1 Imaging: MRI with and without contrast- No acute intracranial findings No evidence of acute or subacute infarction No evidence of intracranial mass Foci of increased T2 signal within the white matter likely a small vessel basis. Old lacunar infarct involving the right thalamus Paranasal sinus inflammatory change Exam: Physical Exam: Constitutional: appearance nourished, healthy, pleasant Ears, Nose, Mouth and Throat: mucous membranes moist, no injection and skin normal, eyes normal Cardiovascular: normal S-1 and S-2 and regular rate and rhythm Respiratory: clear to auscultation (CTA) and no rales, rhonchi or wheeze Musculoskeletal: no peripheral edema and good distal pulses Skin: no stigmata of neurocutaneous disease noted and normal and intact Eyes: extraocular muscles intact (EOMI) and pupils equal, round and reactive to light (PERRL) NEUROLOGIC EXAMINATION: Mental status: Alert and interactive Oriented [facility], [facility], knows where he lives Oriented to person Speech fluent with no evidence of aphasia Cranial Nerves slight asymmetry with smile eye brow raise symmetric, tongue midline Reflexes: Deep tendon reflexes were symmetrical and graded 2/5. Plantar responses were flexor. Coordination: finger to nose without bi pass, slight essential tremor no cog wheeling Gait/Stance: Posture sitting in bed Motor: Negative for pronator drift of out stretched arms with eyes closed. 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, hip flex plantar flex ext bilaterally 5/5 Current Inpatient Medications Medications (Trade) Dose Ordered Sig/Nieves Route Start Time Stop Time Status Last Admin Dose Admin Atropine Sulfate (Atropine Sulfate 0.1MG/Ml Inj) 0.5 mg ONE PRN IV 12/04/16 12:15 01/03/17 12:14 Ondansetron HCl (Zofran Inj) 4 mg Q6H PRN IV 12/04/16 12:15 01/03/17 12:14 12/04/16 16:46 4 MG Aspirin (Ecotrin Tab) 81 mg QAM PO 12/05/16 09:00 01/04/17 08:59 12/11/16 08:26 81 MG Atorvastatin Calcium (Lipitor Tab) 80 mg QAM PO 12/05/16 09:00 01/04/17 08:59 12/11/16 08:26 80 MG Acetaminophen (Tylenol Tab) 650 mg Q4H PRN PO 12/04/16 12:15 01/03/17 12:14 Calcium/Vitamin D (Caltrate Plus Tab) 1 tab BID PO 12/04/16 21:00 01/03/17 20:59 12/11/16 08:27 1 TAB Cyanocobalamin (Vitamin B-12 Tab) 1,000 mcg DAILY PO 12/05/16 09:00 01/04/17 08:59 12/11/16 08:26 1,000 MCG Folic Acid (Folvite Tab) 1 mg DAILY PO 12/05/16 09:00 01/04/17 08:59 12/11/16 08:28 1 MG Gabapentin (Neurontin Cap) 400 mg TID PO 12/04/16 14:00 01/03/17 13:59 Future hold 12/11/16 08:34 400 MG Magnesium Hydroxide (Milk Of Magnesia Susp) 30 ml DAILY PRN PO 12/04/16 12:15 01/03/17 12:14 Magnesium Oxide (Mag-Ox Tab) 400 mg BID PO 12/04/16 21:00 01/03/17 20:59 12/11/16 08:28 400 MG Metoprolol Succinate (Toprol Xl Tab) 12.5 mg DAILY PO 12/05/16 09:00 01/04/17 08:59 12/11/16 08:26 12.5 MG Mirtazapine (Remeron Tab) 15 mg HS PO 12/04/16 21:00 01/03/17 20:59 12/10/16 19:50 15 MG Ranitidine HCl (zANTac TAB) 150 mg DAILY PO 12/05/16 09:00 01/04/17 08:59 12/11/16 08:26 150 MG Sertraline HCl (Zoloft Tab) 50 mg DAILY PO 12/05/16 09:00 01/04/17 08:59 12/11/16 08:26 50 MG Ferrous Sulfate (Feosol Tab) 325 mg BIDM PO 12/04/16 16:30 01/03/17 16:29 12/11/16 08:26 325 MG Ticagrelor (Brilinta Cap) 90 mg BID PO 12/04/16 21:00 12/11/16 22:00 12/11/16 08:27 90 MG Lorazepam (Ativan Inj) 1 mg Q4H PRN IV 12/04/16 18:30 01/03/17 18:29 12/08/16 20:37 1 MG Lorazepam 0.5 mg 0.5 mg Q4H PRN IV 12/04/16 18:30 01/03/17 18:29 Lorazepam 1 mg/ Syringe 1 ml @ 1 mls/min Q4H PRN IV 12/04/16 20:30 01/03/17 20:29 Lorazepam/Syringe (Ativan Inj/ Syringe) 1 ml @ 1 mls/min Q4H PRN IV 12/04/16 20:30 01/03/17 20:29 12/04/16 23:04 1 MLS/MIN Thiamine HCl (Vitamin B-1 Tab) 100 mg DAILY PO 12/05/16 18:18 01/04/17 18:17 12/11/16 08:26 100 MG Enteral Nutritional Formula (Boost) 1 can BID PO 12/06/16 09:00 01/05/17 08:59 12/11/16 08:28 1 CAN Docusate Sodium (coLACE SYRUP) 100 mg BID PO 12/06/16 21:00 01/05/17 20:59 12/10/16 07:58 100 MG Enalapril Maleate (Vasotec Tab) 5 mg DAILY PO 12/08/16 09:00 01/07/17 08:59 12/11/16 08:27 5 MG Clopidogrel Bisulfate (plAVix TAB) 300 mg TODAY@0800 PO 12/12/16 08:00 12/12/16 08:01 Clopidogrel Bisulfate (plAVix TAB) 75 mg QAM PO 12/13/16 09:00 01/12/17 08:59 Gadobutrol (Gadavist) 8 mmol UD PRN IV 12/11/16 14:30 12/15/16 14:29 Impression 71 year old s/p cardiac cath with confusion and history of EtOH abuse Plan 1. B12, folate RPR-WNL 2. MRI with and without contrast to evaluate for any structure issues and encephalopathy-no acute findings-small vessel disease and globe atrophy 3. thiame ordered 4. DTs ativan and protocol given 5. chronic smoker urged to quit urged to quit EtOH use 6. PT/OT for discharge needs 7. psychiatry of depression 8. further recommendations to follow once MRI is completed 9. if not done in the past carotid doppler as out patient will see in our office after discharge for further evaluation of encephalopathy , Loren Reynolds PAC, schedule will sign off for now call with questions concerns I have seen and discussed above patient with Dr Franchesca Escobedo, neurology Pateint seen examined and discussed with Loren Patrick and have reviewd the imaging study done today This was likely DTs and see no evidence for a neww vascular event and clinically all that is seenn is an old umn lesion with a left facial asymmetry and lacune on [address] he is coming around there is nothing to suggest korsakoffs or wernickes and would simply continue the thiamine for now we will sing off but are available for reconsultation if things change Franchesca Escobedo Md
[2016-12-11 16:10] VITALS: BP 129/67; PULSE 103; TEMP 36.6; O2SAT 96
[2016-12-11 19:05] VITALS: BP 131/64; PULSE 56; TEMP 36.3; O2SAT 97
[2016-12-11] MEDS: MIRTAZAPINE TAB 15 MG TAB PO SCH (20:01)
[2016-12-12 00:01] VITALS: BP 139/74; PULSE 55; TEMP 36.9; O2SAT 95
[2016-12-12 04:15] VITALS: BP 96/61; PULSE 58; TEMP 36.9; O2SAT 95
[2016-12-12] MEDS ORDERED: CLOPIDOGREL BISULFATE 300 MG TAB PO SCH (08:00)
[2016-12-12 08:24] VITALS: BP 109/63; PULSE 82; TEMP 36.8; O2SAT 98
[2016-12-12] MEDS: DOCUSATE SODIUM 100 MG/10 ML UDC PO SCH (08:33)
[2016-12-12] MEDS: CALCIUM 600MG + VIT D 400 IU TAB PO SCH (08:33)
[2016-12-12] MEDS: BOOST VANILLA PO SCH ×2 (08:33)
[2016-12-12] MEDS: THIAMINE HCL 100 MG TAB PO SCH (08:34)
[2016-12-12] MEDS: METOPROLOL SUCC 25MG EXT REL TAB PO SCH (08:34)
[2016-12-12] MEDS: CYANOCOBALAMIN 500 MCG TAB (VIT B-12) PO SCH (08:34)
[2016-12-12] MEDS: RANITIDINE HCL 150 MG TAB PO SCH (08:34)
[2016-12-12] MEDS: MAGNESIUM OXIDE 400 MG TAB PO SCH (08:34)
[2016-12-12] MEDS: FERROUS SULFATE 325 MG TAB PO SCH ×2 (08:35→16:45)
[2016-12-12] MEDS: ASPIRIN 81 MG ECTAB PO SCH (08:35)
[2016-12-12] MEDS: ENALAPRIL MALEATE 5 MG TAB PO SCH (08:35)
[2016-12-12] MEDS: ATORVASTATIN 40 MG TAB PO SCH (08:35)
[2016-12-12] MEDS: SERTRALINE HCL 50 MG TAB PO SCH (08:35)
[2016-12-12] MEDS: GABAPENTIN 400 MG CAP PO SCH ×2 (08:35→14:40)
[2016-12-12 12:40] VITALS: BP 115/60; PULSE 76; TEMP 36.7; O2SAT 99
--- NOTE | 2016-12-12 13:56 | Progress Note ---
Internal Med Progress Note Date of Service: Dec 12, 2016. Provider Documentation: SUBJECTIVE: Patient is seen and examined at bedside. Patient feels well. "I am trying to get some sleep". Clinically no significant change from yesterday. Denies any chest Pain, SOB, abd pain. offers no other complaints. OBJECTIVE: Vital Signs-as noted below Physical Exam: General Appearance:Moderately built and nourished, no apparent distress Head: normocephalic, Atraumatic Eyes: normal inspection, EOMI, PERRLA Neck: supple, Trachea midline Respiratory/Chest: Normal breath sounds, CTA, No accessory muscle use Cardiovascular: S1, S2, + systolic murmur Abdomen/GI:Soft, Non tender, Bowel sounds present Extremities/Musculoskelatal:normal inspection, no edema Neurologic/Psych:+ intermittent confusion, grossly no focal neurological deficits Skin: normal color, warm Lab data as noted below. ASSESSMENT & PLAN: STEMI : s/p PCI with ROBBI x2 to mid RCA, ostial PDA Recurrent stent thrombosis H/O medication non compliance prior hx of ROBBI on RCA in Sep 2016 Patient presented with Chest pain and ST elevation in Inf lead underwent emergent Cardiac cath revealed 100 % occlusion of RCA Appreciate Cardiology help Continue Aspirin, Brilinta>>> Need to transition to ASA/Plavix (will need to be loaded on Plavix 300mg prior to DC) Also continue statin , beta don, ACEI Brilinta discontinued and switched to plavix CONFUSION /METABOLIC ENCEPHALOPATHY : ? Underlying dementia and possible DTs Per Daughter -at baseline -pt has been experiencing forgetfulness , delusion Patient got form his approx 1 yr back -his ETOH abuse worsened symptom worsened in past 1 year since discharge from [facility] long time hx of Significant ETOH abuse neuro checks fall precaution MRI brain: No acute pathology. 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 HX OF PE /DVT : Patient was supposed to be on Coumadin doubt compliance INR 1.1 on presentation given hx of delirium/ETOH abuse /fall /compliance issue poor candidate for group home anticoagulation Coumadin discontinued DYSPHAGIA /HX OF ESOPHAGEAL STRICTURE : H/O Esophageal stricture -requiring EGD dilatation in past as per daughter does not follow with GI mechanical soft diet crush meds when possible aspiration precaution Speech eval:[facility] soft diet DEPRESSION H/O depression , was seen by Psychiatry team at [facility] -Dr Barker in past Pat was on Zoloft at home: not been taking as per Daughter Continue Zoloft, Remeron Appreciate Psych help: Needs follow up as outpatient DVT PX: sub q Heparin DISPOSITION: Plan to discharge to [facility] today: Discussed with today. support services specialist consulted Follow up with PCP in 1 week after discharge from [facility] Follow up with Dr.Christopher Ferro, Cardiology in 2-3 weeks Follow up with Dr Barker (Psychiatry) as outpatient PROCEDURES: MRI Brain: 1. No acute intracranial findings 2. No evidence of acute or subacute infarction 3. No evidence of intracranial mass 4. Foci of increased T2 signal within the white matter likely a small vessel basis. Old lacunar infarct involving the right thalamus 5. Paranasal sinus inflammatory change CXR: No acute process. Vital Signs: Date Time Temp Pulse Resp B/P Pulse Ox O2 Delivery O2 Flow Rate FiO2 12/12/16 12:40 36.7 76 18 115/60 99 Room Air 12/12/16 08:30 Room Air 12/12/16 08:24 36.8 82 18 109/63 98 Room Air 12/12/16 04:15 36.9 58 18 96/61 95 12/12/16 04:00 Room Air 12/12/16 00:01 Room Air 12/12/16 00:01 36.9 55 16 139/74 95 Room Air 12/11/16 20:00 Room Air 12/11/16 19:05 36.3 56 16 131/64 97 Room Air 12/11/16 16:10 36.6 103 18 129/67 96 Room Air 12/11/16 16:00 Room Air
[2016-12-12] MEDS ORDERED: VST5 PO (14:17)
[2016-12-12] MEDS ORDERED: CLCUDL PO (14:17)
[2016-12-12] MEDS ORDERED: THM100 PO (14:17)
[2016-12-12] MEDS ORDERED: ASPEC81 PO (14:17)
[2016-12-12] MEDS ORDERED: Enteral Nutrition Formula PO (14:17)
[2016-12-12] MEDS ORDERED: LPT40 PO (14:17)
[2016-12-12] MEDS ORDERED: POTA20TA13 PO (14:23)
--- NOTE | 2016-12-12 14:30 | Discharge Summary ---
Discharge Summary Date of Service Dec 12, 2016. Discharge Summary Admission Date: Dec 04, 2016 at 12:34 Discharge Date: Dec 12, 2016 Discharge Disposition: residential facility Principal Diagnosis: STEMI Procedures: CXR: No acute process. MRI Brain: 1. No acute intracranial findings 2. No evidence of acute or subacute infarction 3. No evidence of intracranial mass 4. Foci of increased T2 signal within the white matter likely a small vessel basis. Old lacunar infarct involving the right thalamus 5. Paranasal sinus inflammatory change ECHO: * 1. Normal left ventricular size with mildly reduced systolic function. EF 45- 50%. RCA wall motion abnormality, plus or minus circumflex territory. Akinesis of the septal base, base to mid inferior wall, basal inferolateral wall. Hypokinesis of the distal inferior wall and mid inferolateral wall. No significant left ventricular hypertrophy. Type 1 diastolic dysfunction. * 2. Grossly normal right ventricular size with mildly reduced systolic function. * 3. Aortic valve sclerosis mild, without significant aortic valvular stenosis. * 4. Normal estimated right ventricular systolic pressure; RVSP 26 mmHg. 5. Compared to prior study on 09/20/2016, wall motion and LV systolic function appears similar s/p PCI with ROBBI x2 to mid RCA, ostial PDA Consultations: Cardiology Neurology Psychiatry Pending Studies/Follow-Up: Follow up with at [facility] Follow up with PCP in 1 week after discharge from [facility] Follow up with Dr.Christopher Ferro, Cardiology in 2-3 weeks Follow up with Dr Barker (Psychiatry) as outpatient Medication Reconciliation New Medications: Aspirin (Aspirin EC Low Dose) 81 Mg Ectab 81 MG PO QAM for 30 Days, #30 Atorvastatin (Atorvastatin Calcium) 40 Mg Tab 80 MG PO QAM for 30 Days, #60 TAB Docusate Sodium (Diocto) 100 Mg/10 Ml Syrp 100 MG PO BID PRN for constipation for 30 Days, #30 Enalapril Maleate (Enalapril Maleate) 5 Mg Tab 5 MG PO DAILY for 30 Days, #30 TAB Thiamine HCl (Vitamin B-1) 100 Mg Tab 100 MG PO DAILY for 30 Days, #30 TAB [Enteral Nutrition Formula] () 1 CAN LIQD 1 CAN PO BID for 10 Days, #20 Continued Medications: Acetaminophen (Tylenol) 325 Mg Tab 650 MG PO Q6, TAB Calcium/Vitamin D (Os-Lowell 500 Plus D) Tab 1 TAB PO BID, TAB Clopidogrel (Plavix) 75 Mg Tab 75 MG PO DAILY, TAB Cyanocobalamin (Vitamin B-12) 1,000 Mcg Tab 1000 MCG PO DAILY, TAB Ferrous Sulfate (Kp Ferrous Sulfate) 325 Mg Tab 325 TAB PO BID for 30 Days, #60 TAB 3 Refills Folic Acid (Folvite) 1 Mg Tab 1 MG PO DAILY, TAB Gabapentin (Neurontin) 400 Mg Cap 400 MG PO TID, CAP Magnesium Hydroxide (Milk of Magnesia) 30 Ml Susp 30 ML PO DAILY PRN for Constipation Magnesium Oxide (Mag-Ox) 400 Mg Tab 400 MG PO BID, TAB Metoprolol Succ (Toprol Xl) (Toprol-Xl) 25 Mg Tabcr 12.5 MG PO DAILY, #30 TAB Mirtazapine (Mirtazapine) 15 Mg Tab 15 MG PO HS, #30 Ranitidine (Zantac) 150 Mg Tab 150 MG PO DAILY, TAB Sertraline (Zoloft) 50 Mg Tab 50 MG PO DAILY, TAB Discontinued Medications: Atorvastatin (Lipitor) 20 Mg Tab 20 MG PO DAILY, TAB Potassium Chloride Microencaps (Potassium Chloride Er) 20 Meq Tab 20 MEQ PO DAILY for 30 Days, #30 Ramipril (Ramipril) 2.5 Mg Cap 2.5 MG PO DAILY, CAP 3 Refills Warfarin Sod (Jantoven) 6 Mg Tab 6 MG PO DIRECTED, TAB Admission Information HPI (per Admitting provider): This is a 71 y/o male with PMHx of CAD s/o CABG and stent placement, h/o DVT/PE on Coumadin, COPD with ongoing tobacco use, Dyslipidemia and other problems as outlined below who presented to the ED this morning with chest pain. Pt reports that he woke up this morning with chest pain that he describes as 9/10 central chest pain that did not radiate anywhere. Sxs were assoc with diaphoresis, SOB and nausea. Pt has a history of CAD with multiple MIs in the past and felt that these sxs were reflective of his past MIs which prompted him to call 911. E[address] elevation in inferior leads and ST depression in anterior leads. Patient was taken emergently to the engineering laboratory technician which revealed 100% acute occlusion /recurrent stent thrombosis of mid RCA along with complete occlusion of the circumflex at the ostium. Completed successful PCI of mid RCA and ostial PDA with 2 ROBBI placed. Patient was transported to ICU in stable condition. Patient has a history of CAD s/p CABG x 2 20 years ago with multiple stents placed. He was admitted to [facility] in September with RCA STEMI. Cardiac cath revealed 100% occlusion of RCA and PCI was successful however no stents were placed and patient was discharged home with medical mgmt and cardio f/u. Patient never followed up with cardiology. Patient continues to smoke 5 cigarettes daily but has no desire to quit at this time. He is recently from his and is under a lot of stress resulting from these life changes. Pt denies fever/ chills, abd pain, bowel or bladder issues, LE edema, calf pain, lightheadedness/ dizziness. Physical Exam (per Admitting): General Appearance: WD/WN, no apparent distress, + pertinent finding (Pt is laying comfortably in bed) Head: normocephalic, atraumatic Eyes: normal inspection ENT: hearing grossly normal Neck: supple Respiratory/Chest: chest non-tender, lungs clear, normal breath sounds, no respiratory distress Cardiovascular: regular rate, rhythm, no edema, no murmur Abdomen/GI: normal bowel sounds, non tender, soft Back: normal inspection Extremities/Musculoskelatal: normal inspection, no calf tenderness, no pedal edema Neurologic/Psych: alert, normal mood/affect, oriented x 3 Skin: normal color, warm/dry Hospital Course STEMI : s/p PCI with ROBBI x2 to mid RCA, ostial PDA Recurrent stent thrombosis H/O medication non compliance prior hx of ROBBI on RCA in Sep 2016 Patient presented with Chest pain and ST elevation in Inf lead underwent emergent Cardiac cath revealed 100 % occlusion of RCA Appreciate Cardiology help Continue Aspirin, Brilinta>>> Need to transition to ASA/Plavix (will need to be loaded on Plavix 300mg prior to DC) Also continue statin , beta don, ACEI Brilinta discontinued and switched to plavix CONFUSION /METABOLIC ENCEPHALOPATHY : ? Underlying dementia and possible DTs Per Daughter -at baseline -pt has been experiencing forgetfulness , delusion Patient got form his approx 1 yr back -his ETOH abuse worsened symptom worsened in past 1 year since discharge from [facility] long time hx of Significant ETOH abuse neuro checks fall precaution MRI brain: No acute pathology. 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 was sober for past 9-10 years; lapsed into drinking secondary to separation from Last drink was day before STEMI -as per daughter caution for withdrawal /DT S/P Neurontin /Ativan as per ETOH withdrawal protocol Continue thiamine/Folic acid TOBACCO ABUSE [employer] to quit smoking HX OF PE /DVT : Patient was supposed to be on Coumadin doubt compliance INR 1.1 on presentation given hx of delirium/ETOH abuse /fall /compliance issue 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 Coumadin discontinued DYSPHAGIA /HX OF ESOPHAGEAL STRICTURE : H/O Esophageal stricture -requiring EGD dilatation in past as per daughter does not follow with GI mechanical soft diet crush meds when possible aspiration precaution Speech eval:[facility] soft diet DEPRESSION H/O depression , was seen by Psychiatry team at [facility] -Dr Barker in past Pat was on Zoloft at home: not been taking as per Daughter Continue Zoloft, Remeron Appreciate Psych help: Needs follow up as outpatient DVT PX: sub q Heparin DISPOSITION: Plan to discharge to [facility] today: Discussed with today. director of casework services consulted Follow up with PCP in 1 week after discharge from [facility] Follow up with Dr.Christopher Ferro, Cardiology in 2-3 weeks Follow up with Dr Barker (Psychiatry) as outpatient PROCEDURES: MRI Brain: 1. No acute intracranial findings 2. No evidence of acute or subacute infarction 3. No evidence of intracranial mass 4. Foci of increased T2 signal within the white matter likely a small vessel basis. Old lacunar infarct involving the right thalamus 5. Paranasal sinus inflammatory change CXR: No acute process. Total time spent on discharge = This includes examination of the patient, discharge planning, medication reconciliation, and communication with other providers. Discharge Instructions Discharge Instructions Admission Reason for Admission: Heart Alert Discharge Discharge Diagnosis / Problem: STEMI : s/p PCI with RBOBI x2 to mid RCA, ostial PDA Discharge Goals Goal(s): Decrease discomfort, Improve function Activity Recommendations Activity Limitations: resume your previous activity Exercise/Sports Limitations: as tolerated Driving or Machine Use: No driving until cleared by PCP . Instructions / Follow-Up Instructions / Follow-Up Follow up with at [facility] Follow up with PCP in 1 week after discharge from [facility] Follow up with Dr.Christopher Ferro, Cardiology in 2-3 weeks Follow up with Dr Barker (Psychiatry) as outpatient Home Care: * Take your medications exactly as directed. Don't skip doses. * Remember that recovery after a heart attack takes time. Plan to rest for at lease 4-8 weeks while you recover. Then return to normal activity when your doctor says it's okay. * Ask your doctor about joining a heart rehabilitation program. * Tell your doctor if you are feeling depressed. Feelings of sadness are common after a heart attack, but it is important that you speak to someone if you are feeling overwhelmed by these feelings. * If you are having chest pain, call 911 for an ambulance. Do NOT drive yourself to the hospital. * Ask your family members to learn CPR. * Learn to take your own blood pressure and pulse. Keep a record of your results. Ask your doctor when you should seek emergency medical attention. He or she will tell you which blood pressure reading is dangerous. Lifestyle Changes: * Maintain a healthy weight. Get help to lose any extra pounds. * Cut back on salt. * Limit canned, dried, packaged, and fast foods. * Don't add salt to your food. * Season foods with herbs instead of salt when you cook. * Break the smoking habit. Enroll in a stop-smoking program to improve your chances of success. * Limit fatty foods. * Check your lipid levels regularly. (Your doctor can show you how to do this.) * Build up your activity according to your doctor's recommendation. * Ask your doctor when it's okay to resume sexual activity. * Tell your doctor about any erectile dysfunction (ED) medication you are taking. Some ED medications are not safe if you take certain heart medications. * Try to manage stress. Follow Up: It is important for you to keep your follow up appointments with your medical provider. Current Hospital Diet Patient's current hospital diet: AHA Diet (Heart Healthy) Discharge Diet Recommended Diet: AHA Diet (Heart Healthy) Diet Texture: Mechanical Soft (ground) Procedures Procedures Performed: s/p PCI with ROBBI x2 to mid RCA, ostial PDA Pending Studies Studies pending at discharge: no Laboratory Results Hemoglobin A1c Test 12/04/16 09:35 Range/Units Estimated Average Glucose 103 mg/dl Hemoglobin A1c 5.2 4.5-5.6 % Lipid Panel Test 2/25/17 05:15 Range/Units Triglycerides Level 150 0-150 mg/dl Cholesterol Level 125 0-200 mg/dl HDL Cholesterol 37 mg/dl Cholesterol/HDL Ratio 3.4 LDL Cholesterol, Calculated 58 mg/dl Medical Emergencies . Who to Call and When: Medical Emergencies: If at any time you feel your situation is an emergency, please call 911 immediately. Call 911 immediately or go to your nearest Emergency Room if you experience any of the following: Warning Signs and Symptoms of a Heart Attack * Chest pain that is not relieved by medication * Shortness of breath . Non-Emergent Contact Non-Emergency issues call your: Primary Care Provider, Assisted Living Care Manager Call Non-Emergent contact if: you have a fever, your pain is not controlled, your pain is worsening, your pain is unusual for you, you have any medication questions . . "Provider Documentation" section prepared by Raf Henry. AMI Core Measures Reason no ASA as I/P: Treatment provided - N/A Reason no ASA at D/C: Treatment provided - N/A Reason no statin as I/P: Treatment provided - N/A Reason no statin at D/C: Treatment provided - N/A VTE Core Measure Inpt VTE Proph given/why not?: Unfractionated heparin SQ
[2016-12-12 18:58] VITALS: BP 115/60; PULSE 76; TEMP 36.7; O2SAT 99
[2016-12-13] MEDS ORDERED: CLOPIDOGREL BISULFATE 75 MG TAB PO SCH (09:00)
== END 2016-12-12 19:44 | DRG 246 ==
LOC: C.ED 09:52 → C.MSICU 12:34 → C.2T 12-06 09:58
PROVIDERS: ADMIT Internal Medicine Interventional Cardiology; ATTEND Internal Medicine
PROC: 4A023N7 Measurement of Cardiac Sampling and Pressure, Left Heart, Percutaneous Approach (ICD-10-PCS; 2016-12-04)
PROC: B2111ZZ Fluoroscopy of Multiple Coronary Arteries using Low Osmolar Contrast (ICD-10-PCS; 2016-12-04)
PROC: B2121ZZ Fluoroscopy of Single Coronary Artery Bypass Graft using Low Osmolar Contrast (ICD-10-PCS; 2016-12-04)
PROC: B2181ZZ Fluoroscopy of Left Internal Mammary Bypass Graft using Low Osmolar Contrast (ICD-10-PCS; 2016-12-04)
PROC: 027135Z Dilation of Coronary Artery, Two Arteries with Two Drug-eluting Intraluminal Devices, Percutaneous Approach (ICD-10-PCS; principal; 2016-12-04 10:25)
DX: I25.810 Atherosclerosis of coronary artery bypass graft(s) without angina pectoris (principal); I21.3 ST elevation (STEMI) myocardial infarction of unspecified site; T82.857A Stenosis of other cardiac prosthetic devices, implants and grafts, initial encounter; E51.2 Wernicke's encephalopathy; E46 Unspecified protein-calorie malnutrition; E87.1 Hypo-osmolality and hyponatremia; I25.10 Atherosclerotic heart disease of native coronary artery without angina pectoris; Z95.1 Presence of aortocoronary bypass graft; Z86.718 Personal history of other venous thrombosis and embolism; Z86.711 Personal history of pulmonary embolism; J44.9 Chronic obstructive pulmonary disease, unspecified; Z79.01 Long term (current) use of anticoagulants; F17.210 Nicotine dependence, cigarettes, uncomplicated; E78.5 Hyperlipidemia, unspecified; I25.2 Old myocardial infarction; Y83.1 Surgical operation with implant of artificial internal device as the cause of abnormal reaction of the patient, or of later complication, without mention of misadventure at the time of the procedure; Y83.2 Surgical operation with anastomosis, bypass or graft as the cause of abnormal reaction of the patient, or of later complication, without mention of misadventure at the time of the procedure; F32.9 Major depressive disorder, single episode, unspecified; F10.10 Alcohol abuse, uncomplicated; E78.00 Pure hypercholesterolemia, unspecified; Z68.24 Body mass index [BMI] 24.0-24.9, adult; G62.9 Polyneuropathy, unspecified; Z79.899 Other long term (current) drug therapy; Z79.02 Long term (current) use of antithrombotics/antiplatelets; E87.6 Hypokalemia; D64.9 Anemia, unspecified; Z91.14 Patient's other noncompliance with medication regimen; F03.90 Unspecified dementia, unspecified severity, without behavioral disturbance, psychotic disturbance, mood disturbance, and anxiety; I95.81 Postprocedural hypotension

== ENCOUNTER 2017-04-29 19:18 | Emergency (ER) | payer OTHER ==
[~2017-04-29] VITALS: Ht 185.4 cm; Wt 78.0 kg
[~2017-04-29 19:18] MED LIST changes: +ACET-1311 PO; +CALC500C70 PO; +CLCUDL PO; -CMD75 PO; +CYAN10005 PO; +Enteral Nutrition Formula PO; +FERR1TAB13 PO; +FOLI1TAB7 PO; +MAGN400T6 PO; +METO25TA3 PO; +MOMLX PO; -POTA20TA13 PO; +SERT50TA PO; -SODIUM CHLORIDE 0.9% 1000ML 1,000 ML IV STA; +THM100 PO; -UMEC1AER; +VST5 PO
[2017-04-29 19:31] VITALS: Ht 185.4 cm; Wt 78.0 kg
--- NOTE | 2017-04-29 20:27 | DIAGNOSTIC IMAGING REPORT ---
RIGHT WRIST MIN 3 VIEWS ROUTINE CLINICAL HISTORY: Fall. Evaluate for fracture. COMPARISON: None FINDINGS: Alignment of the right carpal bones is anatomic. There is no acute fracture of the right carpal bones. There is no acute fracture of the distal right radius or ulna. Note is made of an acute nondisplaced fracture within the distal shaft and head of the right fifth metacarpal. There are old fractures of the right fourth and fifth metacarpals as well. IMPRESSION: 1. No acute fracture or dislocation of the right wrist. 2. Acute nondisplaced fracture of the distal shaft and head of the right fifth metacarpal. Electronically signed by: Nicolas Mcintyre M.D. 04/29/2017 8:26 PM Dictated Date/Time: 04/29/2017 8:23 PM
--- NOTE | 2017-04-29 20:28 | DIAGNOSTIC IMAGING REPORT ---
RIGHT FIFTH FINGER RADIOGRAPHS CLINICAL HISTORY: Fall. Evaluate for fracture. COMPARISON: None FINDINGS: There is an acute nondisplaced fracture within the distal shaft and head of the right fifth metacarpal. There is also a suspected old fracture within the right fifth metacarpal shaft. No additional fractures are identified on this exam. IMPRESSION: Acute nondisplaced fracture within the head and distal shaft of the right fifth metacarpal. Electronically signed by: Nicolas Mcintyre M.D. 04/29/2017 8:27 PM Dictated Date/Time: 04/29/2017 8:26 PM
--- NOTE | 2017-04-29 20:33 | DIAGNOSTIC IMAGING REPORT ---
CT OF THE HEAD WITHOUT CONTRAST CLINICAL HISTORY: Head injury. COMPARISON STUDY: Head CT February 02, 2016 and MRI of the brain December 11, 2016. TECHNIQUE: Helical axial images of the head were obtained without IV contrast. Automated exposure control was utilized for the study. A dose lowering technique was utilized adhering to the principles of ALARA. FINDINGS: No acute intracranial hemorrhage, midline shift or mass effect is present. Ventricular system is stable. The basilar cisterns are patent. There are no extra axial collections. White matter hypodensity suggests small vessel disease. There is no calvarial fracture. There is right preseptal soft tissue swelling. The right globe is intact. Right facial fractures are depicted on the maxillofacial CT. There is mild mucosal thickening of the visualized portions of the sinuses. IMPRESSION: 1. No acute intracranial findings. 2. No calvarial fracture. Electronically signed by: Nicolas Mcintyre M.D. 04/29/2017 8:31 PM Dictated Date/Time: 04/29/2017 8:27 PM
--- NOTE | 2017-04-29 20:41 | DIAGNOSTIC IMAGING REPORT ---
MAXILLOFACIAL CT WITHOUT CONTRAST CLINICAL HISTORY: Fall. COMPARISON STUDY: Maxillofacial CT February 02, 2016. TECHNIQUE: A maxillofacial CT was performed without IV contrast. Coronal and sagittal reformats were viewed. A dose lowering technique was utilized adhering to the principles of ALARA. FINDINGS: Alignment of the temporomandibular joints is anatomic. There is no skull base fracture. The cervical spine CT will be reported separately. There is no mandibular fracture. The globes are intact. There is no retrobulbar hematoma. There is moderate right preseptal infiltration consistent with a contusion. There is hemorrhage within the right maxillary sinus which is largely opacified. Note is made of an acute minimally displaced fracture with thin the right orbital floor which extends through the infraorbital foramen. There is also a comminuted, displaced fracture of the lateral wall of the right maxillary sinus and a mildly displaced fracture of the medial wall the right maxillary sinus. There is a nondisplaced fracture the right zygomatic arch. There is mild mucosal thickening of the remainder of the sinuses. The pterygoid plates are intact. The left orbital floor is intact. IMPRESSION: 1. Acute minimally displaced right orbital floor fracture. Displaced fractures of the lateral and medial badillo of the right maxillary sinus with a nondisplaced fracture of the right zygomatic arch. Hemorrhage within the right maxillary sinus. 2. Right preseptal contusion. Globes intact with no retrobulbar hematoma. Electronically signed by: Nicolas Mcintyre M.D. 04/29/2017 8:40 PM Dictated Date/Time: 04/29/2017 8:34 PM
--- NOTE | 2017-04-29 20:47 | DIAGNOSTIC IMAGING REPORT ---
CT OF THE CERVICAL SPINE WITHOUT CONTRAST CLINICAL HISTORY: Fall. COMPARISON STUDY: Cervical spine CT February 02, 2016. TECHNIQUE: Helical axial images of the cervical spine were obtained without IV contrast. Sagittal and coronal reconstructions were viewed. A dose lowering technique was utilized adhering to the principles of ALARA. FINDINGS: Fractures of the right orbital floor and medial and lateral badillo of the right maxillary sinus are better depicted on the maxillofacial CT. Alignment of the cervical spine is anatomic. Vertebral body heights are maintained. There is no acute fracture. There is moderate multilevel degenerative disc disease and facet arthrosis of the cervical spine. Severe emphysema is noted within visualized portions the lung apices. IMPRESSION: No acute cervical spine fracture or subluxation. Electronically signed by: Nicolas Mcintyre M.D. 04/29/2017 8:46 PM Dictated Date/Time: 04/29/2017 8:43 PM
[2017-04-29 21:38] VITALS: BP 178/96; PULSE 71; TEMP 36.7; O2SAT 98
--- NOTE | 2017-04-30 01:22 | EMERGENCY ROOM VISIT NOTE ---
History Report prepared by Emily: Ashly Emerson Under the Supervision of: Dr. James Coker M.D. First contact with patient: 19:49 Chief Complaint: FALL Stated Complaint: FALL, HEAD INJURY, ETOH History of Present Illness The patient is a 71 year old male who presents to the Emergency Room with complaints of an episode of a fall occurring an hour ago. The patient states that he tripped, but denies loss of consciousness. The patient states that he face planted onto the ground. The patient states that he had 3 drinks today and states he doesn't drink every day. The patient complains of the right side of his face being sore and his little finger on his right hand. The patient denies nausea, chest pain, shortness of breath, abdominal pain, hip pain, arm pain, leg pain, neck pain, visual changes, and knee pain. The patient notes he takes Plavix and denies any other blood thinners. Source of History: patient Onset: an hour ago Position: other (global) Quality: other (global) Timing: other (episode) Associated Symptoms: No LOC, No neck pain, No chest pain, No SOB, No nausea , No abdominal pain Note: The patient complains of right face pain and right little finger pain. The patient denies hip pain, arm pain, leg pain, knee pain, and visual changes. Review of Systems See HPI for pertinent positives & negatives. A total of 10 systems reviewed and were otherwise negative. Past Medical & Surgical Medical Problems: (1) Alcohol use disorder (2) CAD (coronary artery disease) of bypass graft (3) Closed fracture of proximal end of left humerus (4) COPD (chronic obstructive pulmonary disease) (5) Depression (6) DVT (deep venous thrombosis) (7) History of alcohol abuse (8) Hypercholesteremia (9) Hyperlipidemia (10) Malnutrition (11) WA (myocardial infarction) (12) PE (pulmonary embolism) (13) Peripheral neuropathy (14) Warfarin anticoagulation Surgical Problems: (1) H/o neuroma removed from foot (2) History of carpal tunnel surgery (3) Hx of CABG (4) S/P coronary artery stent placement Family History Patient reports no known family medical history. Social History Smoking Status: Current Every Day Smoker Drug Use: none Marital Status: single Housing Status: lives alone Occupation Status: retired Current/Historical Medications Scheduled Acetaminophen (Tylenol), 650 MG PO Q6 Atorvastatin (Atorvastatin Calcium), 80 MG PO QAM Calcium/Vitamin D (Os-[place] 500 Plus D), 1 TAB PO BID Clopidogrel (Plavix), 75 MG PO DAILY Cyanocobalamin (Vitamin B-12), 1,000 MCG PO DAILY Enalapril Maleate (Enalapril Maleate), 5 MG PO DAILY Ferrous Sulfate (Kp Ferrous Sulfate), 325 TAB PO BID Folic Acid (Folvite), 1 MG PO DAILY Gabapentin (Neurontin), 400 MG PO TID Magnesium Oxide (Mag-Ox), 400 MG PO BID Metoprolol Succ (Toprol Xl) (Toprol-Xl), 12.5 MG PO DAILY Mirtazapine (Mirtazapine), 15 MG PO HS Ranitidine (Zantac), 150 MG PO DAILY Sertraline (Zoloft), 50 MG PO DAILY Thiamine HCl (Vitamin B-1), 100 MG PO DAILY [Enteral Nutrition Formula], 1 CAN PO BID Scheduled PRN Docusate Sodium (Diocto), 100 MG PO BID PRN for constipation Magnesium Hydroxide (Milk of Magnesia), 30 ML PO DAILY PRN for Constipation Allergies Coded Allergies: No Known Allergies (Unverified , 04/29/17) Physical Exam Vital Signs Date Time Temp Pulse Resp B/P (MAP) Pulse Ox O2 Delivery O2 Flow Rate FiO2 04/29/17 21:38 36.7 71 18 178/96 98 04/29/17 21:28 71 18 178/96 98 Room Air 04/29/17 19:36 70 04/29/17 19:31 36.7 67 18 125/73 95 Room Air Physical Exam Constitutional: Vital signs reviewed. Eyes: Pupils are equal round reactive to light. Conjunctiva are noninjected. No EOM entrapment. ENT: Pharynx is clear without erythema or exudate. Mucous membranes are moist. Neck supple without meningeal signs. Right maxillary and orbital tenderness with ecchymosis and abrasions. No mandibular tenderness. Respiratory: Clear to auscultation bilaterally. Breath sounds are equal bilaterally. Cardiovascular: Regular rate and rhythm. No rubs or gallops. GI: Soft, nondistended and nontender. Bowel sounds are present. Musculoskeletal: No peripheral edema. No lower extremity tenderness. No midline tenderness to cervical spine. No hip tenderness or lower extremity tenderness, tenderness to right wrist and base of fifth digit. Integumentary: No cyanosis. Neurologic: The patient is awake and alert. Cranial nerves II-XII are intact. Motor is 5 out of 5 all extremities. Sensation is intact to light touch all extremities. Normal speech. Psychiatric: Normal affect. Medical Decision & Procedures ER Provider Diagnostic Interpretation: Radiology results as stated below per my review and the radiologist's interpretation: RIGHT WRIST MIN 3 VIEWS ROUTINE CLINICAL HISTORY: Fall. Evaluate for fracture. COMPARISON: None FINDINGS: Alignment of the right carpal bones is anatomic. There is no acute fracture of the right carpal bones. There is no acute fracture of the distal right radius or ulna. Note is made of an acute nondisplaced fracture within the distal shaft and head of the right fifth metacarpal. There are old fractures of the right fourth and fifth metacarpals as well. IMPRESSION: 1. No acute fracture or dislocation of the right wrist. 2. Acute nondisplaced fracture of the distal shaft and head of the right fifth metacarpal. Electronically signed by: Nicolas Mcintyre M.D. 04/29/2017 8:26 PM Dictated Date/Time: 04/29/2017 8:[address] WITHOUT CONTRAST CLINICAL HISTORY: Fall. COMPARISON STUDY: Maxillofacial CT February 02, 2016. TECHNIQUE: A maxillofacial CT was performed without IV contrast. Coronal and sagittal reformats were viewed. A dose lowering technique was utilized adhering to the principles of ALARA. FINDINGS: Alignment of the temporomandibular joints is anatomic. There is no skull base fracture. The cervical spine CT will be reported separately. There is no mandibular fracture. The globes are intact. There is no retrobulbar hematoma. There is moderate right preseptal infiltration consistent with a contusion. There is hemorrhage within the right maxillary sinus which is largely opacified. Note is made of an acute minimally displaced fracture with thin the right orbital floor which extends through the infraorbital foramen. There is also a comminuted, displaced fracture of the lateral wall of the right maxillary sinus and a mildly displaced fracture of the medial wall the right maxillary sinus. There is a nondisplaced fracture the right zygomatic arch. There is mild mucosal thickening of the remainder of the sinuses. The pterygoid plates are intact. The left orbital floor is intact. IMPRESSION: 1. Acute minimally displaced right orbital floor fracture. Displaced fractures of the lateral and medial badillo of the right maxillary sinus with a nondisplaced fracture of the right zygomatic arch. Hemorrhage within the right maxillary sinus. 2. Right preseptal contusion. Globes intact with no retrobulbar hematoma. Electronically signed by: Nicolas Mcintyre M.D. 04/29/2017 8:40 PM Dictated Date/Time: 04/29/2017 8:[address] OF THE HEAD WITHOUT CONTRAST CLINICAL HISTORY: Head injury. COMPARISON STUDY: Head CT February 02, 2016 and MRI of the brain December 11, 2016. TECHNIQUE: Helical axial images of the head were obtained without IV contrast. Automated exposure control was utilized for the study. A dose lowering technique was utilized adhering to the principles of ALARA. FINDINGS: No acute intracranial hemorrhage, midline shift or mass effect is present. Ventricular system is stable. The basilar cisterns are patent. There are no extra axial collections. White matter hypodensity suggests small vessel disease. There is no calvarial fracture. There is right preseptal soft tissue swelling. The right globe is intact. Right facial fractures are depicted on the maxillofacial CT. There is mild mucosal thickening of the visualized portions of the sinuses. IMPRESSION: 1. No acute intracranial findings. 2. No calvarial fracture. Electronically signed by: Nicolas Mcintyre M.D. 04/29/2017 8:31 PM Dictated Date/Time: 04/29/2017 8:[address] OF THE CERVICAL SPINE WITHOUT CONTRAST CLINICAL HISTORY: Fall. COMPARISON STUDY: Cervical spine CT February 02, 2016. TECHNIQUE: Helical axial images of the cervical spine were obtained without IV contrast. Sagittal and coronal reconstructions were viewed. A dose lowering technique was utilized adhering to the principles of ALARA. FINDINGS: Fractures of the right orbital floor and medial and lateral badillo of the right maxillary sinus are better depicted on the maxillofacial CT. Alignment of the cervical spine is anatomic. Vertebral body heights are maintained. There is no acute fracture. There is moderate multilevel degenerative disc disease and facet arthrosis of the cervical spine. Severe emphysema is noted within visualized portions the lung apices. IMPRESSION: No acute cervical spine fracture or subluxation. Electronically signed by: Nicolas Mcintyre M.D. 04/29/2017 8:46 PM Dictated Date/Time: 04/29/2017 8:43 PM RIGHT FIFTH FINGER RADIOGRAPHS CLINICAL HISTORY: Fall. Evaluate for fracture. COMPARISON: None FINDINGS: There is an acute nondisplaced fracture within the distal shaft and head of the right fifth metacarpal. There is also a suspected old fracture within the right fifth metacarpal shaft. No additional fractures are identified on this exam. IMPRESSION: Acute nondisplaced fracture within the head and distal shaft of the right fifth metacarpal. Electronically signed by: Nicolas Mcintyre M.D. 04/29/2017 8:27 PM Dictated Date/Time: 04/29/2017 8:26 PM ED Course 1951: The patient was evaluated in room B11A. A complete history and physical exam was performed. 2129: Upon reevaluation, the patient appeared to have improvement of his symptoms. He was able to ambulate on his own and doesn't feel intoxicated. He has no double vision or signs of entrapment. I discussed tonight's findings with him. The patient verbalized agreement of the treatment plan. The patient was discharged home. Medical Decision This is a 71-year-old male who presents with injuries after fall. Differential diagnosis includes intracranial hemorrhage, concussion, contusion, facial fracture, hand fracture. I did perform a limited focused review of portions of the patient's old chart on the electronic medical record. The patient was admitted in November for a STEMI. Medication Reconciliation: I attest that I have personally reviewed the patient' s current medication list. Blood Pressure Screening: Patient was found to have a slightly elevated blood pressure due to circumstances. I do not believe that the patient requires hypertension monitoring. I did provide prehospital medical command for the patient. Initially the patient was called in as a refusal. As the patient had alcohol on board and an obvious head injury I did not feel it was appropriate to allow him to refuse and directed the paramedics to bring the patient in for evaluation. I did evaluate the patient as noted above. I did order and personally review the patient's x-rays as described above. He does have a fracture to the fifth metacarpal bone. He was placed in a sugar tong ulnar gutter splint. I did order a CT of the head, cervical spine and facial bones. I did review the images myself as well as the radiology report as described above. He does have fractures to the zygomatic arch, maxillary sinus and inferior orbital wall. I did reexamine the patient. He is clinically sober and able to ambulate without assistance. He has no diplopia or signs of extraocular movement entrapment. There was no facial or plastic surgery professional architect. He was advised to follow closely with his doctor for referral to a plastic surgeon. He was also advised follow with Dr. Brown of orthopedics for his hand fracture. He was discharged with his daughter. Impression Primary Impression: Facial fracture Additional Impressions: Right hand fracture Fall Scribe Attestation The scribe's documentation has been prepared under my direct and personally reviewed by me in its entirety. I confirm that the note above accurately reflects all work, treatment, procedures, and medical decision making performed by me. Departure Information Dispostion Home / Self-Care Referrals Raysa Jain M.D. (PCP) Forms HOME CARE DOCUMENTATION FORM, IMPORTANT VISIT INFORMATION Patient Instructions My [facility] Additional Instructions You have been examined and treated today on an emergency basis only. This is not a substitute for, or an effort to provide, complete comprehensive medical care. It is impossible to recognize and treat all injuries or illnesses in a single emergency department visit. It is therefore important that you follow up closely with your physician and examined and Dr. Brown of orthopedics. Call as soon as possible for an appointment. Return for worsening symptoms or if you develop fever, vomiting, headache or any other concerning symptoms. Problem Qualifiers Primary Impression: Facial fracture Encounter type: initial encounter Facial bone/location: unspecified facial bone Fracture type: closed Qualified Codes: S02.92XA - Unspecified fracture of facial bones, initial encounter for closed fracture Additional Impressions: Right hand fracture Encounter type: initial encounter Fracture type: closed Qualified Codes: S62.91XA - Unspecified fracture of right wrist and hand, initial encounter for closed fracture Fall Encounter type: initial encounter Qualified Codes: W19.XXXA - Unspecified fall, initial encounter
== END 2017-04-29 21:39 | disposition home or self-care (01) ==
LOC: EDBD 19:18 → C.EDB 19:19
DX: S02.92XA Unspecified fracture of facial bones, initial encounter for closed fracture (principal); S62.91XA Unspecified fracture of right hand, initial encounter for closed fracture; W01.198A Fall on same level from slipping, tripping and stumbling with subsequent striking against other object, initial encounter; I25.10 Atherosclerotic heart disease of native coronary artery without angina pectoris; J44.9 Chronic obstructive pulmonary disease, unspecified; F32.9 Major depressive disorder, single episode, unspecified; E78.5 Hyperlipidemia, unspecified; E78.00 Pure hypercholesterolemia, unspecified; F17.200 Nicotine dependence, unspecified, uncomplicated; I25.2 Old myocardial infarction; Z86.711 Personal history of pulmonary embolism; Z86.718 Personal history of other venous thrombosis and embolism; Z98.890 Other specified postprocedural states; Z95.1 Presence of aortocoronary bypass graft; Z98.61 Coronary angioplasty status; Z79.02 Long term (current) use of antithrombotics/antiplatelets; Z79.899 Other long term (current) drug therapy

== ENCOUNTER 2017-08-11 20:43 | Inpatient (IN) | payer OTHER ==
[~2017-08-11] VITALS: Ht 182.9 cm; Wt 67.7 kg
[~2017-08-11 20:43] MED LIST changes: -ASPEC81 PO
[2017-08-11] MEDS ORDERED: CEFEPIME IV 2,000 MG in DEXTROSE 5% 100ML 100 ML IV STA (21:25)
[2017-08-11] MEDS ORDERED: SODIUM CHLORIDE 0.9% 1000ML 1,000 ML IV ONE (21:25)
[2017-08-11] MEDS ORDERED: CEFEPIME IV 2,000 MG in SYRINGE 7.5 ML IV ONE (21:45)
--- NOTE | 2017-08-11 21:52 | DIAGNOSTIC IMAGING REPORT ---
CHEST ONE VIEW PORTABLE CLINICAL HISTORY: Sepsis dyspnea COMPARISON STUDY: 12/04/2016 FINDINGS: Mild chronic emphysematous change. Mild chronic fibrosis. Prior median sternotomy. No evidence for cardiac enlargement. IMPRESSION: Chronic and emphysematous change. No acute process. The above report was generated using voice recognition software. It may contain grammatical, syntax or spelling errors. Electronically signed by: Abhinav Reyna M.D. 08/11/2017 9:51 PM Dictated Date/Time: 08/11/2017 9:50 PM
[2017-08-11] MEDS ORDERED: ACETAMINOPHEN 325 MG TAB PO STA (22:18)
[2017-08-11 22:21] LABS: URINE APPEARANCE CLEAR (CLEAR); URINE NITRITE POS (NEG); URINE PH 5.5 (4.5-7.5); URINE SPECIFIC GRAVITY 1.028 (1.000-1.030); UROBILINOGEN NEG (NEG)
[2017-08-11 22:27] LABS: MANUAL MICROSCOPIC REQUIRED? NO; REVIEW REQ? YES; URINE COLOR AMBER
[2017-08-11 22:28] LABS: URINE BILIRUBIN NEG (NEG)
[2017-08-11 22:36] LABS: URINE EPITHELIAL CELL AUTO 20-30 /lpf (0-5)
[2017-08-11 22:37] LABS: ZZURINE CULT IF INDIC CATH YES
--- NOTE | 2017-08-11 22:38 | EMERGENCY ROOM VISIT NOTE ---
History Report prepared by Emily: Pepe Brink Under the Supervision of: Dr. Ricardo Diggs M.D. First contact with patient: 21:19 Chief Complaint: CONFUSION Stated Complaint: CONFUSION History of Present Illness The patient is a 72 year old male who presents to the Emergency Room with complaints of a persistent altered mental status beginning a few days ago. Per nursing staff, the patient's daughter checks on the patient a few times per week. The daughter states that the patient was found to be extremely weak, and was too weak to stand up. She feels that the patient may not have moved from his chair in multiple days. The patient's daughter states that the patient was vomiting as well. She states that the patient is normally self sufficient, and is able to take care of himself. He has a history of alcohol use disorder, but his daughter does not think he has been drinking alcohol recently. The patient' s daughter is concerned that the patient has not been eating or drinking enough. She states that the patient normally smokes, and has not been getting up to smoke. The patient states that he has been getting out of his chair. He denies SOB. He states "I live with my , but we don't really live together". The patient is reported to live alone. HPI limited secondary to altered mental status. Source of History: patient, family (daughter), nursing staff History Limited By: AMS Onset: A few days ago Quality: other (altered mental status) Timing: other (persistent) Associated Symptoms: + vomiting, No SOB Review of Systems ROS limited secondary to AMS. Past Medical & Surgical Medical Problems: (1) Alcohol use disorder (2) CAD (coronary artery disease) of bypass graft (3) Closed fracture of proximal end of left humerus (4) COPD (chronic obstructive pulmonary disease) (5) Depression (6) DVT (deep venous thrombosis) (7) History of alcohol abuse (8) Hypercholesteremia (9) Hyperlipidemia (10) Malnutrition (11) MA (myocardial infarction) (12) PE (pulmonary embolism) (13) Peripheral neuropathy (14) Sepsis (15) UTI (urinary tract infection) (16) Warfarin anticoagulation Surgical Problems: (1) H/o neuroma removed from foot (2) History of carpal tunnel surgery (3) Hx of CABG (4) S/P coronary artery stent placement Family History Patient reports no known family medical history. Social History Smoking Status: Current Every Day Smoker Drug Use: none Marital Status: single Housing Status: lives alone Occupation Status: retired Current/Historical Medications Scheduled Aspirin (Aspirin Ec), 81 MG PO DAILY Atorvastatin (Lipitor), 80 MG PO DAILY Calcium/Vitamin D (Os-Lowell 500 Plus D), 1 TAB PO BID Clopidogrel (Plavix), 75 MG PO DAILY Cyanocobalamin (Vitamin B-12), 1,000 MCG PO DAILY Enalapril (Vasotec), 5 MG PO DAILY Ferrous Sulfate (Kp Ferrous Sulfate), 325 TAB PO BID Folic Acid (Folvite), 1 MG PO DAILY Gabapentin (Neurontin), 400 MG PO TID Magnesium Oxide (Mag-Ox), 400 MG PO BID Mirtazapine (Mirtazapine), 15 MG PO HS Nutritional Supplements (Boost), 1 CAN PO BID Ranitidine (Zantac), 150 MG PO DAILY Sertraline (Zoloft), 50 MG PO DAILY Thiamine Hcl (Vitamin B-1), 100 MG PO DAILY Scheduled PRN Acetaminophen (Tylenol), 650 MG PO Q6 PRN for Pain or Fever Magnesium Hydroxide (Milk of Magnesia), 30 ML PO DAILY PRN for Constipation Allergies Coded Allergies: No Known Allergies (Unverified , 04/29/17) Physical Exam Vital Signs Date Time Temp Pulse Resp B/P (MAP) Pulse Ox O2 Delivery O2 Flow Rate FiO2 08/12/17 01:00 96 18 108/64 93 Nasal Cannula 2.0 08/12/17 00:30 106 18 109/72 93 Nasal Cannula 2.0 08/12/17 00:08 113 18 110/67 94 Nasal Cannula 4.0 08/12/17 00:07 92 Nasal Cannula 2.0 08/12/17 00:06 88 Room Air 08/11/17 23:04 107 18 127/79 91 Room Air 08/11/17 22:05 112 18 122/85 92 Room Air 08/11/17 22:05 37.7 08/11/17 21:32 92 Room Air 08/11/17 21:30 113 18 116/81 92 Room Air 08/11/17 20:59 119 08/11/17 20:45 36.6 110 18 113/82 92 Room Air Physical Exam GENERAL: Patient is in no acute distress. HEENT: No acute trauma, normocephalic atraumatic, mucous membranes dry, no nasal congestion, no scleral icterus. NECK: No stridor, no adenopathy, no meningismus, trachea is midline. LUNGS: Clear to auscultation bilaterally, no wheeze, no rhonchi, breath sounds equal. HEART: Tachycardic with a regular rhythm. No murmurs. ABDOMEN: Soft, nontender, bowel sounds positive, no hernias, no peritonitis. EXTREMITIES: No cyanosis or edema, full range of motion of all the joints without pain or difficulty, no signs for acute trauma. Cool feet bilaterally. No cellulitis. NEUROLOGIC: Confused. Awake, alert, moving all extremities. SKIN: No rash, no jaundice, no diaphoresis. Medical Decision & Procedures ER Provider Diagnostic Interpretation: Radiology results as stated below per my review and radiologist interpretation: CHEST ONE VIEW PORTABLE FINDINGS: Mild chronic emphysematous change. Mild chronic fibrosis. Prior median sternotomy. No evidence for cardiac enlargement. IMPRESSION: Chronic and emphysematous change. No acute process. The above report was generated using voice recognition software. It may contain grammatical, syntax or spelling errors. Electronically signed by: Abhinav Reyna M.D. 08/11/2017 9:[address]: No acute intracranial abnormality identified, chronic small vessel ischemic disease noted. Laboratory Results 08/11/17 22:47 Red Blood Count 5.08, Mean Corpuscular Volume 100.6, Mean Corpuscular Hemoglobin 35.0, Mean Corpuscular Hemoglobin Concent 34.8, Mean Platelet Volume 10.4, Neutrophils (%) (Auto) 86.6, Lymphocytes (%) (Auto) 6.4, Monocytes (%) ( Auto) 5.8, Eosinophils (%) (Auto) 0.3, Basophils (%) (Auto) 0.3, Neutrophils # ( Auto) 12.41, Lymphocytes # (Auto) 0.91, Monocytes # (Auto) 0.83, Eosinophils # ( Auto) 0.04, Basophils # (Auto) 0.04 08/11/17 23:15 Test 08/11/17 22:02 08/11/17 22:03 08/11/17 22:22 08/11/17 22:47 Ethyl Alcohol mg/dL < 3.0 mg/dl (0-3) Urine Color RADHA Urine Appearance CLEAR (CLEAR) Urine pH 5.5 (4.5-7.5) Urine Specific Arnold 1.028 (1.000-1.030) Urine Protein 1+ (NEG) Urine Glucose (UA) NEG (NEG) Urine Ketones TRACE (NEG) Urine Occult Blood 1+ (NEG) Urine Nitrite POS (NEG) Urine Bilirubin NEG (NEG) Urine Urobilinogen NEG (NEG) Urine Leukocyte Esterase SMALL (NEG) Urine WBC (Auto) 10-30 /hpf (0-5) Urine RBC (Auto) 5-10 /hpf (0-4) Urine Hyaline Casts (Auto) 1-5 /lpf (0-5) Urine Epithelial Cells (Auto) 20-30 /lpf (0-5) Urine Bacteria (Auto) 1+ (NEG) Urine Renal Epithelial Cells /lpf (0-5) Ammonia < 10.0 umol/L (11-32) White Blood Count 14.31 K/uL (4.8-10.8) Red Blood Count 5.08 M/uL (4.7-6.1) Hemoglobin 17.8 g/dL (14.0-18.0) Hematocrit 51.1 % (42-52) Mean Corpuscular Volume 100.6 fL (80-100) Mean Corpuscular Hemoglobin 35.0 pg (25-34) Mean Corpuscular Hemoglobin Concent 34.8 g/dl (32-36) Platelet Count 202 K/uL (130-400) Mean Platelet Volume 10.4 fL (7.4-10.4) Neutrophils (%) (Auto) 86.6 % Lymphocytes (%) (Auto) 6.4 % Monocytes (%) (Auto) 5.8 % Eosinophils (%) (Auto) 0.3 % Basophils (%) (Auto) 0.3 % Neutrophils # (Auto) 12.41 K/uL (1.4-6.5) Lymphocytes # (Auto) 0.91 K/uL (1.2-3.4) Monocytes # (Auto) 0.83 K/uL (0.11-0.59) Eosinophils # (Auto) 0.04 K/uL (0-0.5) Basophils # (Auto) 0.04 K/uL (0-0.2) RDW Standard Deviation 54.7 fL (36.4-46.3) RDW Coefficient of Variation 14.9 % (11.5-14.5) Immature Granulocyte % (Auto) 0.6 % Immature Granulocyte # (Auto) 0.08 K/uL (0.00-0.02) Test 08/11/17 23:15 08/11/17 23:17 Prothrombin Time 11.8 SECONDS (9.0-12.0) Prothromb Time International Ratio 1.1 (0.9-1.1) Activated Partial Thromboplast Time 26.9 SECONDS (21.0-31.0) Partial Thromboplastin Ratio 1.0 Anion Gap 12.0 mmol/L (3-11) Est Creatinine Clear Calc Drug Dose 41.3 ml/min Estimated GFR () 54.8 Estimated GFR (Non- 47.3 BUN/Creatinine Ratio 23.5 (10-20) Lactic Acid Level 1.7 mmol/L (0.4-2.0) Calcium Level 8.7 mg/dl (8.5-10.1) Magnesium Level 2.0 mg/dl (1.8-2.4) Total Bilirubin 0.6 mg/dl (0.2-1) Aspartate Amino Transf (AST/SGOT) 14 U/L (15-37) Alanine Aminotransferase (ALT/SGPT) 10 U/L (12-78) Alkaline Phosphatase 80 U/L (45-117) Troponin I 0.029 ng/ml (0-0.045) Total Protein 7.3 gm/dl (6.4-8.2) Albumin 2.8 gm/dl (3.4-5.0) Globulin 4.5 gm/dl (2.5-4.0) Albumin/Globulin Ratio 0.6 (0.9-2) Thyroid Stimulating Hormone (TSH) 1.510 uIu/ml (0.300-4.500) Free Thyroxine 1.53 ng/dl (0.80-1.60) Bedside Lactic Acid Venous 1.64 mmol/L (0.90-1.70) Laboratory results reviewed by me. Medications Administered Medications (Trade) Dose Ordered Sig/Nieves Route Start Time Stop Time Status Last Admin Dose Admin Sodium Chloride 1,000 ml @ 999 mls/hr Q1H1M ONCE IV 08/11/17 21:25 08/11/17 22:25 DC 08/11/17 22:04 999 MLS/HR Cefepime HCl 2000 mg/Syringe 20 ml @ 5 mls/min TODAY@2145 ONCE IV 08/11/17 21:45 08/11/17 21:48 DC 08/11/17 23:05 5 MLS/MIN Acetaminophen (Tylenol Supp) 975 mg NOW STAT KS 08/11/17 23:18 08/11/17 23:20 DC 08/11/17 23:25 975 MG Sodium Chloride 500 ml @ 999 mls/hr Q31M STAT IV 08/12/17 00:20 08/12/17 00:50 DC 08/12/17 00:43 999 MLS/HR ECG Indication: altered mental status Rate (beats per minute): 118 Rhythm: sinus tachycardia Findings: PAC, no acute ischemic change, other (Non-specific T wave changes) ED Course 2119: The patient was evaluated in room B12B. A complete history and physical exam was performed. 2124: Ordered Cefepime HCl 2000 mg/Dextrose 112.5 mL @ 200 mL/hr IV, Sodium Chloride 1000 ml @ 999 mls/hr IV. 2317: Ordered Tylenol 975 mg KS. Medical Decision The patient is a 72 year old male who presents to the ED with complaints of altered mental status. Differential diagnoses considered include dehydration, electrolyte imbalance, renal failure, liver failure, alcohol abuse, sepsis, UTI , stroke, pneumonia, and ICH. There is a moderate leukocytosis at 14,000, this is consistent with infection. No concerning anemia. Renal panel testing suggests some dehydration, no significant electrolyte abnormality requiring correction. The patient appears to be in a euthyroid state. There is no hepatitis. Lactic acid level is not elevated making severe sepsis less likely. Chest film does not show pneumonia or CHF. Brain CT shows no acute bleed or mass effect. Urinalysis does suggest infection, urine culture is pending, blood cultures are pending. Ammonia level is not elevated. Alcohol level is undetectable. There is no coagulopathy. The patient presents with a change in mental status, lack of by mouth intake and possibly vomiting. On exam, he seemed dehydrated. He was tachycardic. Temperature very mildly elevated rectally. Lower extremities did not show edema but he clearly has some peripheral vascular disease. He does not seem in severe pain so I suspect a lot of the lower extremity findings are more chronic. There is no cellulitis to the lower extremities. The patient was aggressively managed. He received IV saline, IV cefepime. He was given rectal Tylenol. The patient's heart rate has decreased with this treatment. He has remained relatively stable. The patient appears to have a UTI, possibly septic. This has caused the majority of his issues today I suspect. A hospital stay is required. I did speak to the patient and to the hospice case manager. The on-call hospitalist was consulted. Medication Reconcilliation Current Medication List: was personally reviewed by me Blood Pressure Screening Patient's blood pressure: Normal blood pressure Blood pressure disposition: Did not require urgent referral Impression Primary Impression: Change in mental status Additional Impressions: UTI (urinary tract infection) Leukocytosis Dehydration Critical Care I have personally spent greater than 30 minutes of critical care time in the direct management of this patient. This includes bedside care, interpretation of diagnostic studies and testing, discussion with consultants, the patient, and family members, and other required patient management activities. This 30 minutes is in excess of all separately billable procedures. Scribe Attestation The scribe's documentation has been prepared under my direction and personally reviewed by me in its entirety. I confirm that the note above accurately reflects all work, treatment, procedures, and medical decision making performed by me. Departure Information Dispostion Being Evaluated By Hospitalist Raysa Hector M.D. (PCP) Patient Instructions [facility] Problem Qualifiers
[2017-08-11 23:09] LABS: BASO % 0.3 %; BASO ABS # 0.04 K/uL (0-0.2); COMPLETE YES; EOS % 0.3 %; HEMATOCRIT 51.1 % (42-52); IG% 0.6 %; LYMPH % 6.4 %; LYMPH ABS # 0.91 K/uL (1.2-3.4); MEAN CELL VOLUME 100.6 fL (80-100); MEAN CORPUSCULAR HGB CONC 34.8 g/dl (32-36); MEAN PLATELET VOLUME 10.4 fL (7.4-10.4); MONO % 5.8 %; NEUT % 86.6 %; PLATELET COUNT 202 K/uL (130-400); RED BLOOD COUNT 5.08 M/uL (4.7-6.1); WHITE BLOOD COUNT 14.31 K/uL (4.8-10.8)
[2017-08-11] MEDS ORDERED: ACETAMINOPHEN 325 MG SUPP PR STA (23:18)
[2017-08-11 23:49] LABS: INR 1.1 (0.9-1.1); PROTHROMBIN TIME (PATIENT) 11.8 SECONDS (9.0-12.0)
[2017-08-11] MEDS ORDERED: ATOR-26 PO (23:55)
[2017-08-12] VITALS (7 sets, daily range): BP systolic 93–120; BP diastolic 54–74; PULSE 66–120; TEMP 36.5–37; O2SAT 94–99; Ht 182.9 cm; Wt 67.7 kg
[2017-08-12] MEDS ORDERED: ASPI81TA28 PO (00:01)
[2017-08-12] MEDS ORDERED: ENAL5TAB83 PO (00:03)
[2017-08-12 00:10] LABS: BUN/CREATININE RATIO 23.5 (10-20); CALCIUM 8.7 mg/dl (8.5-10.1); CREATININE 1.47 mg/dl (0.60-1.40); POTASSIUM 3.2 mmol/L (3.5-5.1)
[2017-08-12] MEDS ORDERED: THIA100T11 PO (00:12)
[2017-08-12] MEDS ORDERED: NUTR-7 PO (00:15)
[2017-08-12] MEDS ORDERED: SODIUM CHLORIDE 0.9% 500ML 500 ML IV STA (00:20)
[2017-08-12 00:21] LABS: ALB/GLOB RATIO 0.6 (0.9-2); THYROID STIMULATING HORMONE 1.51 uIu/ml (0.300-4.500)
[2017-08-12] MEDS ORDERED: ALUMINUM/MAGNESIUM/SIMETH (MAALOX MAX) 30 ML UDC PO PRN (01:30)
[2017-08-12] MEDS ORDERED: CEFEPIME IV 2,000 MG in DEXTROSE 5% 100ML 100 ML IV SCH (01:30)
[2017-08-12] MEDS ORDERED: VANCOMYCIN INJ 1,000 MG in SODIUM CHLORIDE 0.9% 250ML 250 ML IV SCH (01:30)
[2017-08-12] MEDS ORDERED: NITROGLYCERIN 0.4 MG SL PER TAB CHARGE SL PRN (01:30)
[2017-08-12] MEDS ORDERED: ONDANSETRON INJ 2 MG/ML 2 ML VIAL IV PRN (01:30)
[2017-08-12] MEDS ORDERED: MAGNESIUM HYDROXIDE SUSP 30 ML UDC PO PRN ×2 (01:30)
[2017-08-12] MEDS ORDERED: ACETAMINOPHEN 325 MG TAB PO PRN ×2 (01:30)
[2017-08-12] MEDS ORDERED: CEFEPIME CONSULT ACTIVE PRN ×2 (04:45)
[2017-08-12] MEDS ORDERED: VANCOMYCIN CONSULT ACTIVE PRN (04:45)
[2017-08-12] MEDS ORDERED: VANCOMYCIN INJ 1,250 MG in SODIUM CHLORIDE 0.9% 250ML 250 ML IV SCH (05:00)
[2017-08-12] MEDS: SODIUM CHLORIDE 0.9% 1000ML 1,000 ML IV SCH ×2 (05:20→16:07)
[2017-08-12] MEDS ORDERED: HEPARIN SOD 5000 UNIT/0.5 ML CARP SQ SCH (06:00)
[2017-08-12] MEDS ORDERED: HEPARIN IV BOLUS 5,000 UNIT in SYRINGE 0 ML IV ONE (06:15)
[2017-08-12] MEDS: HEPARIN 25,000 UNIT/500ML D5W 500 ML IV PRN (06:21)
--- NOTE | 2017-08-12 06:27 | HISTORY & PHYSICAL EXAMINATION ---
DATE OF ADMISSION: 08/12/2017 CHIEF COMPLAINT: Confusion. HISTORY OF PRESENT ILLNESS: This is a 72-year-old male with past medical history significant for CAD status post CABG and stent placement, history of DVT, PE, no longer on Coumadin, COPD, hyperlipidemia, depression, history of alcohol abuse, malnutrition, history of OK, history of peripheral neuropathy, who was brought in by daughter because of confusion. The patient lives alone. He was in the hospital for OK in November of this year with in-stent thrombosis and was discharged to [facility] . Currently living alone in his house.As per daughter regarding confusion/dementia he is doing fine except that he is confused during illness, but otherwise, he is doing okay. About a week ago, he was taking care of himself, was paying his bills. Ambulatory status is okay. Daughter is visiting him once or twice a week. When she went to see him this Wednesday, he seemed somewhat disoriented. He had some emesis in his bathroom and she cleaned the emesis and she cleaned his bed and when asked he declined any complaints of any pain, he does not seem to be eating or taking his pills. Daughter arranged his food and pills and left and sent her daughter to see him the next day and the granddaughter told that the patient seems somewhat better. Today, again the daughter went to see him. She felt like he never moved from the chair. It seemed that he never laid on the bed or used the bathroom. It looks like he was not eating and drinking and seemed more disoriented than before. She tried to get him up from the chair, but she could not do .She also noticed some purple discoloration of his toes on Wednesday and thought making appointment with his doctor. Anyway she called EMS and he was brought in to the hospital. Currently, the patient is somewhat drowsy, but arousable, can say his name, but not answering any other questions. He seemed confused . The patient denies any pain or any other complaints. When aroused, he opens his eyes, but he goes back to sleep. ALLERGIES: No known drug allergies. PAST MEDICAL HISTORY: As mentioned above. PAST SURGICAL HISTORY: History of CABG, history of carpal tunnel surgery, history of cardiac stent placement. FAMILY HISTORY: No family history as per report. SOCIAL HISTORY: Smokes cigarettes. Recent history of alcohol abuse, but as per daughter, he is not drinking lately. No drug use. from his , lives alone. REVIEW OF SYSTEMS: Unobtainable as patient is confused. MEDICATIONS: Tylenol 650 mg p.o. q. 6 hours p.r.n., aspirin enteric coated 81 mg p.o. daily, Lipitor 80 mg p.o. daily, calcium plus vitamin D 1 tablet p.o. b.i.d., Plavix 75 mg p.o. daily, cyanocobalamin 1000 mcg p.o. daily, Vasotec 5 mg p.o. daily, ferrous sulfate 325 mg p.o. b.i.d., folic acid 1 mg p.o. daily, gabapentin 400 mg p.o. t.i.d., milk of magnesia 30 mL p.o. daily p.r.n., magnesium oxide 400 mg p.o. b.i.d., Remeron 15 mg p.o. at bedtime, nutritional supplements 1 can p.o. b.i.d., Zantac 150 mg p.o. daily, sertraline 150 mg p.o. daily, thiamine 100 mg p.o. daily. PHYSICAL EXAMINATION: GENERAL: The patient is of moderate built, confused. VITAL SIGNS: T-max 37.7, pulse 113, respiratory rate 18, blood pressure 110/67, oxygen 94% on 2 liters. HEENT: No pallor, no icterus. NECK: No JVD, no neck masses. Oral mucosa dry. CARDIOVASCULAR SYSTEM: S1, S2 heard, regular, tachycardia. No murmurs. RESPIRATORY SYSTEM: Normal AP diameter. No accessory muscle use. No wheezing, no crackles. ABDOMEN: Soft, bowel sounds present. Nontender. No distention. CENTRAL NERVOUS SYSTEM: Confused, oriented to name only. Moves extremities. EXTREMITIES: Somewhat purplish discoloration of the toes on both the legs, cold to touch. No edema seen.No tenderness LABORATORIES: WBC is 14.3, hemoglobin 17.8, hematocrit 51.1, platelets 202. Sodium 145, potassium 3.2, chloride 111, bicarbonate 22, BUN 35, creatinine 1.4, serum glucose 117. Lactic acid 1.7, calcium 8.7, magnesium 2, total bilirubin 0.6, AST 14, ALT 10, alkaline phosphatase 80, ammonia less than 10. Troponin I 0.029, TSH 1.5, free T4 1.53, PT 11.8, INR 1.1, APTT 26.9. Urinalysis positive for leukocyte esterase and nitrites. Ethyl alcohol less than 3. Chest x-ray: No acute findings seen. CT of the head, unofficial report, no acute findings. ASSESSMENT AND PLAN: A 72-year-old male who presents with confusion, possibly secondary to urinary tract infection. 1. Metabolic encephalopathy secondary to urinary tract infection, possible sepsis with mild temp spike, leukocytosis, and possible urinary tract infection , started on empiric antibiotics, IV cefepime and IV vancomycin. Follow the urine cultures and blood cultures. IV fluids at 100 mL per hour. Monitor on the tele floor. Will also check lower extremity doppler for purple toes. 2. History of myocardial infarction in the past. Continue his home medications of aspirin, Plavix, statin, not on beta don, on Vasotec. Currently stable. 3. History of alcohol abuse. As per daughter, not drinking lately. Alcohol levels low. We will watch for alcohol withdrawal. 4. History of pulmonary embolism and deep venous thrombosis, no longer on Coumadin because of history of alcohol abuse, compliance issues and also fall risk. 5. History of dysphagia and esophageal stricture. On mechanical soft diet and aspiration precautions.but currently because of his confusion, we will continue him on clear liquid diet. 6. History of depression. Continue Zoloft and Remeron. 7. Deep venous thrombosis prophylaxis, heparin subcutaneous. 8. Disposition: Admit to tele floor. PT and OT prior to discharge. Social Service to help with discharge planning as the patient lives alone. 9. Code status: Do Not Resuscitate as per daughter who is the power of materials and corrosion engineer. MTDD
--- NOTE | 2017-08-12 06:38 | DIAGNOSTIC IMAGING REPORT ---
HEAD WITHOUT CONTRAST (CT) CLINICAL HISTORY: 72 years-old Male with confusion. Acute confusion. TECHNIQUE: Multiple axial CT images of the head were obtained without contrast. A dose lowering technique was utilized adhering to the principles of ALARA. CT DOSE: 537.48 mGy.cm COMPARISON: CT head 04/29/2017. FINDINGS: No acute intracranial hemorrhage, midline shift, mass, large territorial ischemia or abnormal extra-axial collection. Moderate atrophy with ex vacuo ventriculomegaly. Background chronic microvascular ischemic changes redemonstrated. Atherosclerotic vascular disease involves the cerebral vessels, notably at the level of the skull base. The calvarium is intact. The paranasal sinuses, mastoid air cells, and middle ear cavities are clear. IMPRESSION: No acute intracranial abnormality. The above report was generated using voice recognition software. It may contain grammatical, syntax or spelling errors. Electronically signed by: Raul Gaffney M.D. 08/12/2017 6:37 AM Dictated Date/Time: 08/12/2017 6:34 AM
[2017-08-12] MEDS: CYANOCOBALAMIN 500 MCG TAB (VIT B-12) PO SCH (07:19)
[2017-08-12] MEDS: ATORVASTATIN 40 MG TAB PO SCH (07:19)
[2017-08-12] MEDS: CALCIUM 600MG + VIT D 400 IU TAB PO SCH ×2 (07:19→21:15)
[2017-08-12] MEDS: FERROUS SULFATE 325 MG TAB PO SCH ×2 (07:19→21:14)
[2017-08-12] MEDS: RANITIDINE HCL 150 MG TAB PO SCH (07:20)
[2017-08-12] MEDS: ASPIRIN 81 MG ECTAB PO SCH (07:20)
[2017-08-12] MEDS: THIAMINE HCL 100 MG TAB PO SCH (07:20)
[2017-08-12] MEDS: CLOPIDOGREL BISULFATE 75 MG TAB PO SCH (07:20)
[2017-08-12] MEDS: SERTRALINE HCL 50 MG TAB PO SCH (07:20)
[2017-08-12] MEDS: MAGNESIUM OXIDE 400 MG TAB PO SCH ×2 (07:21→21:13)
--- NOTE | 2017-08-12 07:39 | DIAGNOSTIC IMAGING REPORT ---
BILATERAL LOWER EXTREMITY ARTERIAL DOPPLER ULTRASOUND CLINICAL HISTORY: Purple toes. COMPARISON STUDY: No previous studies for comparison. TECHNIQUE: Grayscale and color and duplex Doppler sonography of the arterial systems of both lower extremities was performed. FINDINGS: Ankle to brachial indices could not be obtained in this patient as no arterial waveforms were identified. There was triphasic flow within the proximal right common femoral artery with an elevated peak systolic velocity of 216 cm/s within the distal aspect of this vessel. The right superficial femoral and popliteal arteries are occluded, containing thrombus which is age-indeterminate. 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 There is minimal monophasic flow within the proximal right posterior tibial, peroneal and anterior tibial arteries. The mid to distal portions of these vessels appear occluded. No distal flow is identified by sonography. Incidental note is made of nonocclusive deep venous thrombus within the right superficial femoral vein. The left common femoral artery is patent with triphasic flow. Elevated peak systolic velocity of 197 cm/s is identified within the distal aspect of this vessel. The left superficial femoral, popliteal, posterior tibial and peroneal arteries are occluded and contained age indeterminate thrombus. There is minimal monophasic flow within the proximal left anterior tibial artery. The mid to distal portion of the left anterior tibial artery appears occluded. No distal flow is identified. Note is made of a 1.8 cm left popliteal artery aneurysm. IMPRESSION: 1. Markedly abnormal bilateral lower extremity arterial Doppler ultrasound. Age indeterminate occlusion of the bilateral superficial femoral and popliteal arteries with only minimal monophasic flow identified within the proximal right anterior tibial, posterior tibial and peroneal arteries and the proximal left anterior tibial artery. Otherwise, no flow identified within the bilateral calf vessels which favors occlusion. 2. Bilateral occluded saccular popliteal artery aneurysms, right larger than left. 3. Patent bilateral common femoral arteries with triphasic flow. Findings suggestive of hemodynamically significant stenoses of the distal aspects of these vessels. 4. Age indeterminate nonocclusive thrombus within the right superficial femoral vein. Electronically signed by: Nicolas Mcintyre M.D. 08/12/2017 7:38 AM Dictated Date/Time: 08/12/2017 7:30 AM
[2017-08-12] MEDS ORDERED: ENALAPRIL MALEATE 5 MG TAB PO SCH (09:00)
[2017-08-12] MEDS ORDERED: GABAPENTIN 400 MG CAP PO SCH (09:00)
--- NOTE | 2017-08-12 10:28 | Progress Note ---
Progress Note Date of Service Aug 12, 2017. Progress Note Subjective: Patient seen at bedside on the medical wards with heparin drip running. Patient is lethargic but awake and verbal and following directions on exam Physical Exam notable for left lower extremity colder than right lower extremity with pedal pulses less palpable than pulse around ankles. Patient able to make foot movements bilaterally Patient's imaging studies overnight was notable for bilateral venous thrombosis of lower extremities with radiographic impression of: 1. Markedly abnormal bilateral lower extremity arterial Doppler ultrasound. Age indeterminate occlusion of the bilateral superficial femoral and popliteal arteries with only minimal monophasic flow identified within the proximal right anterior tibial, posterior tibial and peroneal arteries and the proximal left anterior tibial artery. Otherwise, no flow identified within the bilateral calf vessels which favors occlusion. 2. Bilateral occluded saccular popliteal artery aneurysms, right larger than left. 3. Patent bilateral common femoral arteries with triphasic flow. Findings suggestive of hemodynamically significant stenoses of the distal aspects of these vessels. 4. Age indeterminate nonocclusive thrombus within the right superficial femoral vein. In regards to these findings, heparin drip was started in the AM by the admitting hospitalist physician and vascular surgery consulted I have reviewed prior hospital charts at [facility] [place], [facility] outpatient electronic records, and called the patient's outpatient clinic [facility], [place], [place] [phone] as patient was documented to follow Dr. Fernandez there but now apparently based on this phone call the patient is following a Dr. Stuart in the same location. Despite chart documentation in the past a [facility] [place] that patient has history of DVT and PE, there are no available imaging studies that confirms these findings. Based on the lack of information, I cannot ascertain whether patient's current doppler findings show chronic DVT or extension of DVT. Also because, of the lack of information and patient's lethargy I have ordered V/Q scan to rule out acute pulmonary embolic of chronic pulmonary thromboemboli. CTA may not be an ideal modality if patient has chronic PE and also because patient has less than ideal renal function Although patient also has documented history of falls in the past for which patient was seen at [facility], based on the lack of information on chronicity of thromboembolic disease and new onset confusion without evidence of hemorrhage on admission head CT, that patient should be anticoagulated to prevent worsening thromboemboli extension. Warfarin has been ordered for later today with the plan to bridge from heparin to Coumadin and that Coumadin is a better fpc anticoagulant agent because of readily available reversal agents compared to other oral anticoagulants. Because history of myocardial infarction, will also continue home dual antiplatelets with aspirin and plavix. Continue statin May need to lower gabapentin doses from home to prevent orthostatic hypotension. Other sedating medications include mirtazapine. Will hold gabapentin and mirtazapine for now. Continue sertraline Continue broad spectrum antibiotics to treat for confusion and lethargy possible due to an underlying infection
[2017-08-12] MEDS: BOOST VANILLA PO SCH ×4 (11:03→21:18)
[2017-08-12] MEDS: CEFEPIME IV 2,000 MG in SYRINGE 7.5 ML IV SCH ×2 (11:03→22:48)
--- NOTE | 2017-08-12 11:40 | Surgery Consultation ---
Consultation Date of Service Aug 12, 2017. Chief Complaint Discoloration of bilateral feet History of Present Illness The patient is a 72 year old male was admitted with confusion and DVT of the lower extremity. He was noted to have purplish discoloration of both feet. He denied any foot pain or numbness. He claims he doesn't walk much except around the house for which he denies any problems with pain when walking. He denies rest pain in his feet. He doesn't remember any ulcerations of his feet. He is a current smoker Vitals Vital Signs Past 12 Hours Date Time Temp Pulse Resp B/P (MAP) Pulse Ox O2 Delivery O2 Flow Rate FiO2 08/12/17 11:29 36.8 77 18 119/73 (88) 95 08/12/17 08:00 Room Air 08/12/17 08:00 36.6 83 20 107/69 (82) 98 Room Air 08/12/17 04:36 36.7 92 18 120/74 (89) 99 Nasal Cannula 2.0 08/12/17 02:05 37.0 101 18 113/76 96 08/12/17 01:48 Nasal Cannula 2.0 08/12/17 01:00 96 18 108/64 93 Nasal Cannula 2.0 08/12/17 00:30 106 18 109/72 93 Nasal Cannula 2.0 08/12/17 00:08 113 18 110/67 94 Nasal Cannula 4.0 08/12/17 00:07 92 Nasal Cannula 2.0 08/12/17 00:06 88 Room Air Allergies Coded Allergies: No Known Allergies (Unverified , 04/29/17) Home Medications Scheduled Aspirin (Aspirin Ec), 81 MG PO DAILY Atorvastatin (Lipitor), 80 MG PO DAILY Calcium/Vitamin D (Os-[place] 500 Plus D), 1 TAB PO BID Clopidogrel (Plavix), 75 MG PO DAILY Cyanocobalamin (Vitamin B-12), 1,000 MCG PO DAILY Enalapril (Vasotec), 5 MG PO DAILY Ferrous Sulfate (Kp Ferrous Sulfate), 325 TAB PO BID Folic Acid (Folvite), 1 MG PO DAILY Gabapentin (Neurontin), 400 MG PO TID Magnesium Oxide (Mag-Ox), 400 MG PO BID Mirtazapine (Mirtazapine), 15 MG PO HS Nutritional Supplements (Boost), 1 CAN PO BID Ranitidine (Zantac), 150 MG PO DAILY Sertraline (Zoloft), 50 MG PO DAILY Thiamine Hcl (Vitamin B-1), 100 MG PO DAILY Scheduled PRN Acetaminophen (Tylenol), 650 MG PO Q6 PRN for Pain or Fever Magnesium Hydroxide (Milk of Magnesia), 30 ML PO DAILY PRN for Constipation Problem List Medical Problems: (1) Alcohol use disorder (2) CAD (coronary artery disease) of bypass graft (3) Closed fracture of proximal end of left humerus (4) COPD (chronic obstructive pulmonary disease) (5) Depression (6) DVT (deep venous thrombosis) (7) History of alcohol abuse (8) Hypercholesteremia (9) Hyperlipidemia (10) Malnutrition (11) HI (myocardial infarction) (12) PE (pulmonary embolism) (13) Peripheral neuropathy (14) Sepsis (15) UTI (urinary tract infection) (16) Warfarin anticoagulation Surgical Problems: (1) H/o neuroma removed from foot (2) History of carpal tunnel surgery (3) Hx of CABG (4) S/P coronary artery stent placement Surgical / Medical History Hx Cardiac Surgery: Yes Hx Abdominal Surgery: Yes (hernia) Hx Cancer Surgery: No Hx Thoracic Surgery: No Hx Orthopedic: No Hx Urinary Tract Surgery: No Past Medical/Surgical History: High Cholesterol, Hypertension, Pulmonary Emboli , Thrombophlebitis Family History Patient reports no known family medical history. Social History Smoking Status: Current Every Day Smoker Hx Tobacco Use In Past Year?: Yes Hx Alcohol Use - Type & Amnt: Yes (3+ per day whiskey and mixed drinks) Hx Substance Use -Type & Amnt: No Review of Systems Respiratory: No cough, No cyanosis, No SHERIFF, No hemoptysis, No orthopnea, No PND , No short of breath, No sputum production, No stridor, No wheezing, No dyspnea , No problem reported Cardiovascular: No chest pain, No chest tightness, No chest pressure, No palpitations, No syncope, No diaphoresis, No edema, No intermittent claudication , No orthopnea, No cyanosis, No mumur, No lightheadedness, No paroxysmal nocturnal dyspnea, No problem reported Gastrointestinal: No abdominal pain, No constipation, No diarrhea, No nausea, No vomiting, No anorexia, No appetite changes, No belching, No flatulence, No food intolerance, No hematemesis, No hemorrhoids, No hematochezia, No stool changes, No heartburn, No indigestion, No dysphagia, No rectal bleeding, No problem reported Musculoskeletal: + joint pain, + muscle pain Neurologic: + lethargy Additional Comments: patient answers questions but is lethargic otherwise Physical Exam Constitutional: General Apperance: cachectic Level of Distress: NAD Ambulation: limited ambulation Psychiatric: Mental Status: lethargic Memory: recent memory abnormal, remote memory abnormal Neck: supple Lungs: Auscultation: breath sounds normal Cardiovascular: Heart Auscultation: RRR Musculoskeletal: normal Extremities: Upper Right: no cyanosis, no edema, no varicosities, no palpable cord, no clubbing, no ulcers, no mottling Upper Left: no cyanosis, no edema, no palpable cord, no clubbing, no ulcers , no mottling Lower Right: no cyanosis, no edema, no varicosities, no palpable cord, no clubbing, no ulcers, no mottling, pertinent finding (slight discoloration of distal toes and top of foot) Lower Left: no cyanosis, no edema, no varicosities, no palpable cord, no clubbing, no ulcers, no mottling, pertinent finding (slight discoloration of distal toes) Neurologic: Cranial Nerves: grossly intact Sensation: grossly intact Assessment and Plan Imp: Bilateral superficial femoral artery occlusion Bilateral infra popliteal artery occlusive disease Plan: At this point, he is asymptomatic from his vascular disease. I wound not do anything invasive at this time to increase the circulation to the feet. If he does develop foot pain or ulcers, he then wound need arteriography and most likely a femoral to very distal bypass for limb salvage. Thank you very much for letting me participate in the care of this patient.
[2017-08-12 13:00] LABS: PARTIAL THROMBOPLASTIN RATIO 2.1
[2017-08-12] MEDS ORDERED: INFLUENZA VACCINE HIGH DOSE 65+ 0.5 ML SYR IM. ONE (13:45)
[2017-08-12] MEDS ORDERED: INFLUENZA ADMINISTRATION CHARGE ONE (13:45)
--- NOTE | 2017-08-12 13:51 | DIAGNOSTIC IMAGING REPORT ---
LUNG PERFUSION IMAGING CLINICAL HISTORY: 72 years-old Male with rule out pulmonary embolism. Sepsis and dyspnea with history of COPD. DVT COMPARISON STUDY: Portable chest radiograph 08/11/2017. TECHNIQUE: Patient was unable to perform the ventilation portion of the study. Perfusion images of both lungs were obtained following the IV administration of 5.6 mCi of technetium 99m MAA. Ventilation and perfusion images were acquired in the anterior, posterior, and oblique projections. FINDINGS: A chest x-ray performed on 08/11/2017 demonstrates emphysema with coarsened interstitial opacities suggesting areas of scarring. The ventilation portion of the study was not obtained secondary to patient condition. Large perfusion defects noted within the posterior basal and lateral basal segments right lower lobe. IMPRESSION:Limited study without the ventilation portion of the study conducted. There are 2 large perfusion defects within the basal segments of the right lower lobe, very suspicious for pulmonary embolus. The above report was generated using voice recognition software. It may contain grammatical, syntax or spelling errors. Electronically signed by: Raul Gaffney M.D. 08/12/2017 1:50 PM Dictated Date/Time: 08/12/2017 1:37 PM
--- NOTE | 2017-08-12 14:39 | Pharmacy Progress Note ---
Pharmacy Antibiotic Consult Date of Service: Aug 12, 2017. Pharmacy Dosing Scope Pharmacy is consulted to initiate vancomycin IV dosing therapy, order appropriate labs and adjust drug dose/frequency. Subjective The patient is a 72 year old male admitted on Aug 12, 2017 at 01:23 AMS, possible UTI. Objective Height (Feet): 6 Height (Inches): 0.00 Weight (Kilograms): 62.300 Lab Results (24hrs): Test 08/11/17 22:02 08/11/17 22:03 08/11/17 22:22 08/11/17 22:47 Ethyl Alcohol mg/dL < 3.0 mg/dl (0-3) Urine Color RADHA Urine Appearance CLEAR (CLEAR) Urine pH 5.5 (4.5-7.5) Urine Specific [place] 1.028 (1.000-1.030) Urine Protein 1+ (NEG) Urine Glucose (UA) NEG (NEG) Urine Ketones TRACE (NEG) Urine Occult Blood 1+ (NEG) Urine Nitrite POS (NEG) Urine Bilirubin NEG (NEG) Urine Urobilinogen NEG (NEG) Urine Leukocyte Esterase SMALL (NEG) Urine WBC (Auto) 10-30 /hpf (0-5) Urine RBC (Auto) 5-10 /hpf (0-4) Urine Hyaline Casts (Auto) 1-5 /lpf (0-5) Urine Epithelial Cells (Auto) 20-30 /lpf (0-5) Urine Bacteria (Auto) 1+ (NEG) Urine Renal Epithelial Cells /lpf (0-5) Ammonia < 10.0 umol/L (11-32) White Blood Count 14.31 K/uL (4.8-10.8) Red Blood Count 5.08 M/uL (4.7-6.1) Hemoglobin 17.8 g/dL (14.0-18.0) Hematocrit 51.1 % (42-52) Mean Corpuscular Volume 100.6 fL (80-100) Mean Corpuscular Hemoglobin 35.0 pg (25-34) Mean Corpuscular Hemoglobin Concent 34.8 g/dl (32-36) Platelet Count 202 K/uL (130-400) Mean Platelet Volume 10.4 fL (7.4-10.4) Neutrophils (%) (Auto) 86.6 % Lymphocytes (%) (Auto) 6.4 % Monocytes (%) (Auto) 5.8 % Eosinophils (%) (Auto) 0.3 % Basophils (%) (Auto) 0.3 % Neutrophils # (Auto) 12.41 K/uL (1.4-6.5) Lymphocytes # (Auto) 0.91 K/uL (1.2-3.4) Monocytes # (Auto) 0.83 K/uL (0.11-0.59) Eosinophils # (Auto) 0.04 K/uL (0-0.5) Basophils # (Auto) 0.04 K/uL (0-0.2) RDW Standard Deviation 54.7 fL (36.4-46.3) RDW Coefficient of Variation 14.9 % (11.5-14.5) Immature Granulocyte % (Auto) 0.6 % Immature Granulocyte # (Auto) 0.08 K/uL (0.00-0.02) Test 08/11/17 23:15 08/11/17 23:17 08/12/17 12:14 Prothrombin Time 11.8 SECONDS (9.0-12.0) Prothromb Time International Ratio 1.1 (0.9-1.1) Activated Partial Thromboplast Time 26.9 SECONDS (21.0-31.0) 55.1 SECONDS (21.0-31.0) Partial Thromboplastin Ratio 1.0 2.1 Sodium Level 145 mmol/L (136-145) Potassium Level 3.2 mmol/L (3.5-5.1) Chloride Level 111 mmol/L (98-107) Carbon Dioxide Level 22 mmol/L (21-32) Anion Gap 12.0 mmol/L (3-11) Blood Urea Nitrogen 35 mg/dl (7-18) Creatinine 1.47 mg/dl (0.60-1.40) Est Creatinine Clear Calc Drug Dose 41.3 ml/min Estimated GFR () 54.8 Estimated GFR (Non- 47.3 BUN/Creatinine Ratio 23.5 (10-20) Random Glucose 117 mg/dl (70-99) Lactic Acid Level 1.7 mmol/L (0.4-2.0) Calcium Level 8.7 mg/dl (8.5-10.1) Magnesium Level 2.0 mg/dl (1.8-2.4) Total Bilirubin 0.6 mg/dl (0.2-1) Aspartate Amino Transf (AST/SGOT) 14 U/L (15-37) Alanine Aminotransferase (ALT/SGPT) 10 U/L (12-78) Alkaline Phosphatase 80 U/L (45-117) Troponin I 0.029 ng/ml (0-0.045) Total Protein 7.3 gm/dl (6.4-8.2) Albumin 2.8 gm/dl (3.4-5.0) Globulin 4.5 gm/dl (2.5-4.0) Albumin/Globulin Ratio 0.6 (0.9-2) Thyroid Stimulating Hormone (TSH) 1.510 uIu/ml (0.300-4.500) Free Thyroxine 1.53 ng/dl (0.80-1.60) Bedside Lactic Acid Venous 1.64 mmol/L (0.90-1.70) Micro Results: Blood and urine cx are pending. Assessment & Plan Pt admitted w/ AMS, elevated WBC, elevated temp, possible sepsis due to UTI. Vancomycin Loading dose: 1250 mg IV X 1 dose (~20mg/kg) then: 1000 mg IV every 24 hours. Goal trough level estimate: between 15 - 20 mcg/mL. Trough level has been ordered for: 08/15 prior to 0600 dose. Pharmacy will continue to follow and will adjust dose/frequency as necessary. Thank you
[2017-08-12] MEDS: POTASSIUM CHLR 10 MEQ / WTR 10 MEQ in PREMIXED WATER 100 ML IV SCH ×4 (16:06→19:00)
[2017-08-12] MEDS: WARFARIN SOD 5 MG TAB PO SCH (16:10)
[2017-08-12] MEDS ORDERED: NURSING VERBAL MED ORDER ONE ×2 (18:00→18:15)
[2017-08-12] MEDS ORDERED: SODIUM CHLORIDE 0.9% 1000ML 1,000 ML IV SCH (18:15)
[2017-08-12] MEDS ORDERED: SODIUM CHLORIDE 0.9% 1000ML 1,000 ML IV ONE (18:15)
--- NOTE | 2017-08-12 18:23 | Progress Note ---
Progress Note Date of Service Aug 12, 2017. Progress Note Patient this evening is awake and alert, verbal. This is a dramatic improvement compared to this morning when he was lethargic. He is surprised when he was told that his family member, daughter, was at his bedside earlier during the day when he was lethargic. Patient is aware that he is in a hospital but initially thought that he was in [place]. I explained to him that he is at [facility] and that he was brought here because of mental confusion. Patient reports that he has been taking sleeping pills at home. Patient also acknowledges history of blood clots. I have explained to him that his treatment in the hospital included anticoagulant medications, and IV antibiotics. IV fluids, and telemetry monitoring.
[2017-08-12] MEDS ORDERED: MIRTAZAPINE TAB 15 MG TAB PO SCH (21:00)
[2017-08-13] MEDS: SODIUM CHLORIDE 0.9% 1000ML 1,000 ML IV SCH ×3 (01:12→21:42)
[2017-08-13 03:37] VITALS: BP 109/65; PULSE 81; TEMP 36.4; O2SAT 96
[2017-08-13] MEDS: HEPARIN 25,000 UNIT/500ML D5W 500 ML IV PRN ×2 (05:58→08:25)
[2017-08-13] MEDS ORDERED: VANCOMYCIN INJ 1,000 MG in SODIUM CHLORIDE 0.9% 250ML 250 ML IV SCH (06:00)
[2017-08-13 06:44] LABS: INR 1.1 (0.9-1.1); PARTIAL THROMBOPLASTIN RATIO 1.7
[2017-08-13 07:12] LABS: BASO % 0.5 %; BASO ABS # 0.04 K/uL (0-0.2); COMPLETE YES; EOS % 2.2 %; HEMATOCRIT 38.1 % (42-52); IG% 0.4 %; LYMPH % 12.8 %; MEAN CELL VOLUME 99.2 fL (80-100); MEAN CORPUSCULAR HEMOGLOBIN 33.3 pg (25-34); MEAN CORPUSCULAR HGB CONC 33.6 g/dl (32-36); MEAN PLATELET VOLUME 10.2 fL (7.4-10.4); NEUT % 79.1 %; PLATELET COUNT 191 K/uL (130-400); RED BLOOD COUNT 3.84 M/uL (4.7-6.1); WHITE BLOOD COUNT 7.82 K/uL (4.8-10.8)
[2017-08-13 07:14] LABS: BUN/CREATININE RATIO 20.4 (10-20); CALCIUM 8.4 mg/dl (8.5-10.1); CREATININE 0.95 mg/dl (0.60-1.40); MAGNESIUM 1.6 mg/dl (1.8-2.4); POTASSIUM 3.8 mmol/L (3.5-5.1)
[2017-08-13] MEDS: CYANOCOBALAMIN 500 MCG TAB (VIT B-12) PO SCH (07:14)
[2017-08-13] MEDS: ASPIRIN 81 MG ECTAB PO SCH (07:14)
[2017-08-13] MEDS: ATORVASTATIN 40 MG TAB PO SCH (07:14)
[2017-08-13] MEDS: FERROUS SULFATE 325 MG TAB PO SCH ×2 (07:14→21:44)
[2017-08-13] MEDS: MAGNESIUM OXIDE 400 MG TAB PO SCH ×2 (07:14→21:42)
[2017-08-13] MEDS: CLOPIDOGREL BISULFATE 75 MG TAB PO SCH (07:14)
[2017-08-13] MEDS: SERTRALINE HCL 50 MG TAB PO SCH (07:14)
[2017-08-13] MEDS: CALCIUM 600MG + VIT D 400 IU TAB PO SCH ×2 (07:14→21:43)
[2017-08-13] MEDS: RANITIDINE HCL 150 MG TAB PO SCH (07:15)
[2017-08-13] MEDS: THIAMINE HCL 100 MG TAB PO SCH (07:15)
[2017-08-13 07:16] LABS: ALB/GLOB RATIO 0.6 (0.9-2)
[2017-08-13] MEDS ORDERED: HEPARIN IV BOLUS 2,000 UNIT in SYRINGE 0 ML IV ONE (07:30)
[2017-08-13 07:51] VITALS: BP 132/76; PULSE 86; TEMP 37; O2SAT 95
[2017-08-13] MEDS: BOOST VANILLA PO SCH ×6 (09:00→21:00)
[2017-08-13] MEDS: CEFEPIME IV 2,000 MG in SYRINGE 7.5 ML IV SCH (11:17)
[2017-08-13 11:43] VITALS: BP 114/60; PULSE 86; TEMP 37; O2SAT 95
[2017-08-13 14:29] LABS: HEMATOCRIT 37.9 % (42-52); MEAN CORPUSCULAR HEMOGLOBIN 33.9 pg (25-34); MEAN CORPUSCULAR HGB CONC 34.3 g/dl (32-36); MEAN PLATELET VOLUME 10.3 fL (7.4-10.4); PLATELET COUNT 181 K/uL (130-400); RED BLOOD COUNT 3.83 M/uL (4.7-6.1); WHITE BLOOD COUNT 8.84 K/uL (4.8-10.8)
[2017-08-13] MEDS: NICOTINE 14 MG/24 HR TDSY TD SCH (14:43)
[2017-08-13 14:47] LABS: PARTIAL THROMBOPLASTIN RATIO 2.5
[2017-08-13] MEDS: MAGNESIUM SULFATE 1GM / D5W 1 GM in PREMIXED IN D5W 100 ML IV SCH ×2 (15:24→15:59)
[2017-08-13] MEDS: ENOXAPARIN 60 MG/0.6 ML SYR SQ SCH (16:00)
[2017-08-13] MEDS: WARFARIN SOD 5 MG TAB PO SCH (16:00)
--- NOTE | 2017-08-13 16:28 | Progress Note ---
Internal Med Progress Note Date of Service: Aug 13, 2017. Provider Documentation: SUBJECTIVE: patient seen at bedside. patient's daughter also at bedside. patient is more awake and alert and cooperative on exam but exhibits thought processes of confusion such as believing that his family dog was still alive but the patient' s daughter remind him that his pet 2 years ago. OBJECTIVE: Exam: General- no acute distress Eyes- EOMI ENT- moist oral membranes Neck- no JVD, trachea midline Lungs-Clear to auscultation Heart- sinus in rhythm Abdomen- soft, nontender Extremities-no edema, no calf pain Neuro- awake, verbal, cooperative on exam, reports that he understands his health situation, some memory deficits Lab data as noted below. ASSESSMENT & PLAN: 72-year-old male with past medical history significant for CAD status post CABG and stent placement, history of DVT, PE, no longer on Coumadin at home, COPD, hyperlipidemia, depression, history of alcohol abuse, malnutrition, history of OH, history of peripheral neuropathy, who was brought in by daughter because of confusion. Altered mental status with improvements -Patient started on Cefepime and Vancomycin after ED presentation on 08/12/2017 for possible infectious causes of mental confusion -however, despite initial WBC of 14K, there were no clear sources of infection: patient has been afebrile with maximum temperature of 37.7 Celsius (99.86 F) on ED presentation of 08/11/17, CXR clear, UA with 1+ bacteria but subsequent urine culture NO GROWTH - LESS THAN 1,000 COLONIES/ML, and blood cultures on 08/11/17 no growth to date, no clinical signs of meningitis -WBC trended down from 14K to around 8K on next lab draw and dramatic decrease of Hgb from 17.8 to 13 without obvious source of bleed suggest that patient was initially very dehydrated, BUN/creatinine on initial ED labs with ACUTE KIDNEY INJURY also resolved on subsequent lab draws likely due to to improvements with IV hydration -patient also with alcohol history and may have caused self-neglect, also mentioned that he may have been taking sleeping pills, but patient's daughter believes he may be confabulating -is on thiamine, folic acid, B12 -no signs of active withdrawal from alcohol -home dose gabapentin and mirtazapine held to avoid sedation and hypotension, continuing sertraline -for all these above reasons of alternative causes of confusion, IV antibiotics stopped on 08/13/17, will monitor whether antibiotics needed -negative head CT on admission, may need brain MRI if mental status worsens Thromboembolism -Bilateral DVTs on lower extremity ultrasound 08/12/17, no vascular intervention as per vascular surgery on 08/12/17 -V/Q scan on 08/12/17 shows 2 large perfusion defects within the basal segments of the right lower lobe, very suspicious for pulmonary embolus -patient was on heparin drip from 08/12/17 to 08/13/17 -with stable Hgb around 13 on repeat labs and improved renal function on 08/13/17 , patient to be started on Lovenox at 1 mg/kg [id number] for full dose anticoagulation -patient receiving 5 mg Warfarin daily from 08/12/17, monitor INR -maintain on cardiac telemetry until echocardiogram completed to rule out thromboembolism in the heart History of myocardial infarction -continue home dual antiplatelets with aspirin and plavix. Continue statin History of Fall Risk -have discussed with patient's daughter and patient of risks of blood thinners given his health history but the need to prevent worsening thromboembolisms -PT/OT Evaluation -Case management aware that patient may require inpatient rehab such as [facility] after discharge Nutrition -dietary supplements with meals, replete electrolytes Code Status: DNR/DNI, next of kin is daughter Conchita Mckenna Vital Signs: Date Time Temp Pulse Resp B/P (MAP) Pulse Ox O2 Delivery O2 Flow Rate FiO2 08/13/17 16:36 36.8 81 18 115/67 (83) 97 Room Air 08/13/17 16:00 Room Air 08/13/17 12:00 Room Air 08/13/17 11:43 37.0 86 18 114/60 (78) 95 08/13/17 08:00 Room Air 08/13/17 07:51 37.0 86 18 132/76 (94) 95 08/13/17 04:00 Room Air 08/13/17 03:37 36.4 81 20 109/65 (80) 96 Room Air 08/12/17 23:59 Room Air 08/12/17 23:21 37.0 78 20 113/61 (78) 96 Room Air 08/12/17 19:44 36.6 120 20 113/60 (77) 94 Nasal Cannula 2.0 08/12/17 17:50 84 93/54 (67) Lab Results: Results Past 24 Hours Test 08/13/17 06:11 08/13/17 13:59 Range/Units White Blood Count 7.82 8.84 4.8-10.8 K/uL Red Blood Count 3.84 3.83 4.7-6.1 M/uL Hemoglobin 12.8 13.0 14.0-18.0 g/dL Hematocrit 38.1 37.9 42-52 % Mean Corpuscular Volume 99.2 99.0 80-100 fL Mean Corpuscular Hemoglobin 33.3 33.9 25-34 pg Mean Corpuscular Hemoglobin Concent 33.6 34.3 32-36 g/dl Platelet Count 191 181 130-400 K/uL Mean Platelet Volume 10.2 10.3 7.4-10.4 fL Neutrophils (%) (Auto) 79.1 % Lymphocytes (%) (Auto) 12.8 % Monocytes (%) (Auto) 5.0 % Eosinophils (%) (Auto) 2.2 % Basophils (%) (Auto) 0.5 % Neutrophils # (Auto) 6.19 1.4-6.5 K/uL Lymphocytes # (Auto) 1.00 1.2-3.4 K/uL Monocytes # (Auto) 0.39 0.11-0.59 K/uL Eosinophils # (Auto) 0.17 0-0.5 K/uL Basophils # (Auto) 0.04 0-0.2 K/uL RDW Standard Deviation 51.5 52.7 36.4-46.3 fL RDW Coefficient of Variation 14.3 14.5 11.5-14.5 % Immature Granulocyte % (Auto) 0.4 % Immature Granulocyte # (Auto) 0.03 0.00-0.02 K/uL Prothrombin Time 12.0 9.0-12.0 SECONDS Prothromb Time International Ratio 1.1 0.9-1.1 Activated Partial Thromboplast Time 44.2 65.3 21.0-31.0 SECONDS Partial Thromboplastin Ratio 1.7 2.5 Sodium Level 139 136-145 mmol/L Potassium Level 3.8 3.5-5.1 mmol/L Chloride Level 109 98-107 mmol/L Carbon Dioxide Level 23 21-32 mmol/L Anion Gap 8.0 3-11 mmol/L Blood Urea Nitrogen 19 7-18 mg/dl Creatinine 0.95 0.60-1.40 mg/dl Est Creatinine Clear Calc Drug Dose 62.6 ml/min Estimated GFR () 93.0 Estimated GFR (Non- 80.2 BUN/Creatinine Ratio 20.4 10-20 Random Glucose 78 70-99 mg/dl Calcium Level 8.4 8.5-10.1 mg/dl Magnesium Level 1.6 1.8-2.4 mg/dl Total Bilirubin 0.4 0.2-1 mg/dl Aspartate Amino Transf (AST/SGOT) 26 15-37 U/L Alanine Aminotransferase (ALT/SGPT) 8 12-78 U/L Alkaline Phosphatase 69 45-117 U/L Total Protein 5.9 6.4-8.2 gm/dl Albumin 2.2 3.4-5.0 gm/dl Globulin 3.7 2.5-4.0 gm/dl Albumin/Globulin Ratio 0.6 0.9-2
[2017-08-13 16:36] VITALS: BP 115/67; PULSE 81; TEMP 36.8; O2SAT 97
--- NOTE | 2017-08-13 17:21 | ECHOCARDIOGRAM REPORT ---
*NOTICE TO RECEIVING REPUBLICAN AGENCY This information is strictly Confidential and protected under [place] law. [place] law prohibits you from making any further disclosure of this information unless further disclosure is expressly permitted by the written consent of the person to whom it pertains or is authorized by law. A general authorization for the release of medical or other information is not sufficient for this purpose. Hospital accepts no responsibility if the information is made available to any other person, INCLUDING THE PATIENT. Interpretation Summary * Name: NAYELY GIL Study Date: 08/13/2017 03:12 PM BP: 109/65 mmHg * Patient Location: C.2T\S\S238\S\2 HR: 81 * : 1945 (M/d/yyyy) Gender: Male Height: 72 in * Age: 72 yrs Ethnicity: [place] Weight: 137 lb * Ordering Physician: Mihir Rees * Referring Physician: Self, Referred * * BSA: 1.8 m2 * PATIENT AGITATED AND CONFUSED * DID NOT WANT DEFINITY * The study was technically difficult. * The study was technically limited. * -- Conclusions -- * Ejection Fraction = 50-55%. * There is a moderate sized wall motion abnormality involving the inferior and posterior badillo with hypokinesis to akinesis of the base and mid segements. * Aortic valve sclerosis mild, without significant aortic valvular stenosis. * Grade I diastolic dysfunction, (abnormal relaxation pattern). Procedure Details * A complete two-dimensional transthoracic echocardiogram was performed (2D, M-mode, Doppler and color flow Doppler). Left Ventricle * The left ventricle is grossly normal size. * Consider repeat study with use of ultrasonic contrast to improve endocardial resolution. * Thrombus can not be excluded. * There is normal left ventricular wall thickness. * Ejection Fraction = 50-55%. * Left ventricular systolic function is normal. * There is a moderate sized wall motion abnormality involving the inferior and posterior badillo with hypokinesis to akinesis of the base and mid segements. Right Ventricle * The right ventricle is normal size. * The right ventricular systolic function is normal as assessed by tricuspid annular plane systolic excursion (TAPSE) (normal >1.5 cm). Atria * The left atrium is mildly dilated. * Right atrial size is normal. * There is no evidence of atrial septal defect, but resolution does not allow assessment for a patent foramen ovale. Mitral Valve * There is mild to moderate mitral annular calcification. * There is no mitral valve stenosis. * Significant mitral regurgitation is absent. Tricuspid Valve * The tricuspid valve is not well visualized. * There is no tricuspid stenosis. * Significant tricuspid regurgitation is absent. Aortic Valve * The aortic valve is not well visualized. * Aortic valve sclerosis mild, without significant aortic valvular stenosis. * Aortic stenosis is absent. * There is no significant aortic regurgitation. Pulmonic Valve * The pulmonary valve is not well seen, but the Doppler examination is normal without significant regurgitation or stenosis. Great Vessels * The aortic root is normal size. Pericardium/Pleural * There is no pericardial effusion. Great Vessels * Indeterminate IVC. Left Ventricular Diastolic Function * Grade I diastolic dysfunction, (abnormal relaxation pattern). MMode 2D Measurements and Calculations IVSd 1.4 cm IVSs 2.1 cm LVIDd 4.5 cm LVIDs 3.1 cm LVPWd 1.1 cm LVPWs 1.5 cm IVS/LVPW 1.3 FS 32.1 % EDV(Teich) 93.6 ml ESV(Teich) 37.1 ml EF(Teich) 60.4 % EDV(cubed) 92.6 ml ESV(cubed) 29.0 ml EF(cubed) 68.7 % % IVS thick 46.3 % % LVPW thick 38.0 % LV mass(C)d 213.6 grams LV mass(C)dI 117.8 grams/m\S\2 LV mass(C)s 222.2 grams LV mass(C)sI 122.5 grams/m\S\2 SV(Teich) 56.6 ml SI(Teich) 31.2 ml/m\S\2 SV(cubed) 63.7 ml SI(cubed) 35.1 ml/m\S\2 Ao root diam 3.7 cm Ao root area 10.9 cm\S\2 LVAd ap4 25.0 cm\S\2 LVLd ap4 7.6 cm EDV(MOD-sp4) 68.6 ml EDV(sp4-el) 70.0 ml LVAs ap4 15.6 cm\S\2 LVLs ap4 7.1 cm ESV(MOD-sp4) 33.4 ml ESV(sp4-el) 29.0 ml EF(MOD-sp4) 51.3 % EF(sp4-el) 58.5 % LVAd ap2 20.8 cm\S\2 LVLd ap2 8.2 cm EDV(MOD-sp2) 45.5 ml EDV(sp2-el) 45.0 ml LVAs ap2 12.3 cm\S\2 LVLs ap2 7.9 cm ESV(MOD-sp2) 16.7 ml ESV(sp2-el) 16.1 ml EF(MOD-sp2) 63.2 % EF(sp2-el) 64.1 % LVLd %diff 7.1 % EDV(MOD-bp) 57.2 ml LVLs %diff 10.3 % ESV(MOD-bp) 24.5 ml EF(MOD-bp) 57.2 % SV(MOD-sp4) 35.2 ml SI(MOD-sp4) 19.4 ml/m\S\2 SV(MOD-sp2) 28.8 ml SI(MOD-sp2) 15.9 ml/m\S\2 SV(MOD-bp) 32.8 ml SI(MOD-bp) 18.1 ml/m\S\2 SV(sp4-el) 41.0 ml SI(sp4-el) 22.6 ml/m\S\2 SV(sp2-el) 28.9 ml SI(sp2-el) 15.9 ml/m\S\2 Doppler Measurements and Calculations MV E max kristal 66.1 cm/sec MV A max kristal 78.9 cm/sec MV E/A 0.84 MV dec time 0.22 sec Ao V2 max 76.0 cm/sec Ao max PG 2.3 mmHg Ao max PG (full) 0.79 mmHg LV V1 max PG 1.5 mmHg LV V1 max 61.5 cm/sec
[2017-08-13 18:59] VITALS: BP 138/76; PULSE 84; TEMP 36.8; O2SAT 94
[2017-08-13 19:00] VITALS: BP 138/76; PULSE 84; TEMP 36.8; O2SAT 94
[2017-08-14] VITALS (7 sets, daily range): BP systolic 107–152; BP diastolic 68–87; PULSE 82–96; TEMP 36.5–37; O2SAT 94–96
[2017-08-14 07:19] LABS: BASO % 0.2 %; BASO ABS # 0.02 K/uL (0-0.2); COMPLETE YES; EOS % 1.5 %; HEMATOCRIT 40.6 % (42-52); IG% 0.2 %; LYMPH % 8.4 %; LYMPH ABS # 0.75 K/uL (1.2-3.4); MEAN CELL VOLUME 98.8 fL (80-100); MEAN CORPUSCULAR HEMOGLOBIN 34.3 pg (25-34); MEAN CORPUSCULAR HGB CONC 34.7 g/dl (32-36); MEAN PLATELET VOLUME 10.6 fL (7.4-10.4); MONO % 7.4 %; NEUT % 82.3 %; PLATELET COUNT 208 K/uL (130-400); RED BLOOD COUNT 4.11 M/uL (4.7-6.1); WHITE BLOOD COUNT 8.96 K/uL (4.8-10.8)
[2017-08-14 07:25] LABS: INR 1.6 (0.9-1.1); PROTHROMBIN TIME (PATIENT) 17.6 SECONDS (9.0-12.0)
[2017-08-14] MEDS: SODIUM CHLORIDE 0.9% 1000ML 1,000 ML IV SCH (07:39)
[2017-08-14] MEDS: BOOST VANILLA PO SCH ×4 (07:39→20:36)
[2017-08-14] MEDS: ENOXAPARIN 60 MG/0.6 ML SYR SQ SCH ×2 (07:39→16:56)
[2017-08-14] MEDS: RANITIDINE HCL 150 MG TAB PO SCH (07:40)
[2017-08-14] MEDS: CLOPIDOGREL BISULFATE 75 MG TAB PO SCH (07:40)
[2017-08-14] MEDS: SERTRALINE HCL 50 MG TAB PO SCH (07:40)
[2017-08-14] MEDS: ATORVASTATIN 40 MG TAB PO SCH (07:40)
[2017-08-14] MEDS: FERROUS SULFATE 325 MG TAB PO SCH ×2 (07:40→20:36)
[2017-08-14] MEDS: NICOTINE 14 MG/24 HR TDSY TD SCH (07:40)
[2017-08-14] MEDS: CYANOCOBALAMIN 500 MCG TAB (VIT B-12) PO SCH (07:40)
[2017-08-14] MEDS: THIAMINE HCL 100 MG TAB PO SCH (07:40)
[2017-08-14] MEDS: ASPIRIN 81 MG ECTAB PO SCH (07:40)
[2017-08-14] MEDS: CALCIUM 600MG + VIT D 400 IU TAB PO SCH ×2 (07:40→20:36)
[2017-08-14] MEDS: MAGNESIUM OXIDE 400 MG TAB PO SCH ×2 (07:41→20:36)
[2017-08-14 08:16] LABS: ALB/GLOB RATIO 0.5 (0.9-2); BUN/CREATININE RATIO 13.2 (10-20); CALCIUM 8.3 mg/dl (8.5-10.1); CREATININE 0.91 mg/dl (0.60-1.40); MAGNESIUM 1.9 mg/dl (1.8-2.4); POTASSIUM 3.3 mmol/L (3.5-5.1)
[2017-08-14] MEDS ORDERED: LORAZEPAM 2 MG/ML 1 ML VIAL IV STA (10:41)
[2017-08-14] MEDS ORDERED: LORAZEPAM 2 MG/ML 1 ML VIAL IV PRN (10:45)
--- NOTE | 2017-08-14 12:01 | ECHOCARDIOGRAM REPORT ---
*NOTICE TO RECEIVING DEMOCRAT AGENCY This information is strictly Confidential and protected under [place] law. [place] law prohibits you from making any further disclosure of this information unless further disclosure is expressly permitted by the written consent of the person to whom it pertains or is authorized by law. A general authorization for the release of medical or other information is not sufficient for this purpose. Hospital accepts no responsibility if the information is made available to any other person, INCLUDING THE PATIENT. Interpretation Summary * Name: NAYELY GIL Study Date: 08/14/2017 10:21 AM BP: 124/78 mmHg * Patient Location: C.2T\S\S238\S\2 HR: 79 * : 1945 (M/d/yyy) Gender: Male Height: 72 in * Age: 72 yrs Ethnicity: [place] Weight: 136 lb * Ordering Physician: Mihir Rees * Referring Physician: Self, Referred * Performed By: Beena Hale RDCS * * Reason For Study: REPEAT WITH CONTRAST FOR FUNCTION, PATIENT REFUSED CONTRAST YESTERDAY * BSA: 1.8 m2 * -- Conclusions -- * There is a moderate sized wall motion abnormality involving the inferior and posterior badillo with hypokinesis to akinesis of the base and mid segements. * There is hypokinesis of the apical septum. * Ejection Fraction = 45-50%. * There is no thrombus. Procedure Details * A contrast injection of Definity was performed to improve assessment of LV function. * Contrast was injected into an intravenous site in the left arm. * One vial of Definity ultrasound contrast was diluted in normal saline to a total volume of 10 ml. A total of '2' ml of solution was administered during imaging. * Lot # [id number] of Definity utilized for procedure. * Expiration date sep 27. * The attending nurse who injected the contrast agent was ZAIRA DOYLE. Left Ventricle * There is no thrombus. * Ejection Fraction = 45-50%. * There is a moderate sized wall motion abnormality involving the inferior and posterior badillo with hypokinesis to akinesis of the base and mid segements. There is hypokinesis of the apical septum. MMode 2D Measurements and Calculations LVAd ap4 31.2 cm\S\2 LVLd ap4 7.7 cm EDV(MOD-sp4) 106.6 ml EDV(sp4-el) 107.6 ml LVAs ap4 21.6 cm\S\2 LVLs ap4 6.8 cm ESV(MOD-sp4) 56.5 ml ESV(sp4-el) 58.1 ml EF(MOD-sp4) 47.0 % EF(sp4-el) 46.0 % LVAd ap2 31.1 cm\S\2 LVLd ap2 7.6 cm EDV(MOD-sp2) 105.5 ml EDV(sp2-el) 108.2 ml LVAs ap2 20.2 cm\S\2 LVLs ap2 6.1 cm ESV(MOD-sp2) 55.3 ml ESV(sp2-el) 57.3 ml EF(MOD-sp2) 47.5 % EF(sp2-el) 47.1 % LVLd %diff -0.89 % EDV(MOD-bp) 106.5 ml LVLs %diff -12.70 % ESV(MOD-bp) 59.1 ml EF(MOD-bp) 44.5 % SV(MOD-sp4) 50.1 ml SI(MOD-sp4) 27.7 ml/m\S\2 SV(MOD-sp2) 50.1 ml SI(MOD-sp2) 27.7 ml/m\S\2 SV(MOD-bp) 47.3 ml SI(MOD-bp) 26.2 ml/m\S\2 SV(sp4-el) 49.5 ml SI(sp4-el) 27.4 ml/m\S\2 SV(sp2-el) 50.9 ml SI(sp2-el) 28.1 ml/m\S\2
--- NOTE | 2017-08-14 15:33 | Progress Note ---
Internal Med Progress Note Date of Service: Aug 14, 2017. Provider Documentation: SUBJECTIVE: patient seen at bedside and cooperative on exam. no acute complaints OBJECTIVE: Exam: General- no acute distress Eyes- EOMI ENT- moist oral membranes Neck- no JVD, trachea midline Lungs-Clear to auscultation Heart- sinus in rhythm Abdomen- soft, nontender Extremities-no edema, no calf pain Neuro- awake, verbal, cooperative on exam ASSESSMENT & PLAN: 72-year-old male with past medical history significant for CAD status post CABG and stent placement, history of DVT, PE, no longer on Coumadin at home, COPD, hyperlipidemia, depression, history of alcohol abuse, malnutrition, history of [place], history of peripheral neuropathy, who was brought in by daughter because of confusion. Altered mental status with improvements -Patient started on Cefepime and Vancomycin after ED presentation on 08/12/2017 for possible infectious causes of mental confusion -however, despite initial WBC of 14K, there were no clear sources of infection: patient has been afebrile with maximum temperature of 37.7 Celsius (99.86 F) on ED presentation of 08/11/17, CXR clear, UA with 1+ bacteria but subsequent urine culture NO GROWTH - LESS THAN 1,000 COLONIES/ML, and blood cultures on 08/11/17 no growth to date, no clinical signs of meningitis -WBC trended down from 14K to around 8K on next lab draw and dramatic decrease of Hgb from 17.8 to 13 without obvious source of bleed suggest that patient was initially very dehydrated, BUN/creatinine on initial ED labs with ACUTE KIDNEY INJURY also resolved on subsequent lab draws likely due to to improvements with IV hydration -patient also with alcohol history and may have caused self-neglect, also mentioned that he may have been taking sleeping pills, but patient's daughter believes he may be confabulating -is on thiamine, folic acid, B12 -no signs of active withdrawal from alcohol -ativan prn for agitation -home dose gabapentin and mirtazapine held to avoid sedation and hypotension, continuing sertraline -for all these above reasons of alternative causes of confusion, IV antibiotics stopped on 08/13/17, will monitor whether antibiotics needed -negative head CT on admission, MRI brain ordered to complete evaluation of mental status Thromboembolism -Bilateral DVTs on lower extremity ultrasound 08/12/17, no vascular intervention as per vascular surgery on 08/12/17 -V/Q scan on 08/12/17 shows 2 large perfusion defects within the basal segments of the right lower lobe, very suspicious for pulmonary embolus -patient was on heparin drip from 08/12/17 to 08/13/17 -with stable Hgb around 13 on repeat labs and improved renal function on 08/13/17 , patient to be started on Lovenox at 1 mg/kg [id number] for full dose anticoagulation -patient receiving 5 mg Warfarin daily from 08/12/17, monitor INR, INR on at 1.6 which is close to goal of 2 to 3 -discontinue telemetry as transthoracic echocardiogram x 2 have not identified thrombus in the heart History of myocardial infarction -continue home dual antiplatelets with aspirin and plavix. Continue statin History of Fall Risk -have discussed with patient's daughter and patient of risks of blood thinners given his health history but the need to prevent worsening thromboembolisms -PT/OT Evaluation: recommending rehab stay after hospital discharge -Case management aware that patient may require inpatient rehab such as [facility] after discharge Nutrition -dietary supplements with meals, replete electrolytes to treat hypokalemia or hypomagnesemia Code Status: DNR/DNI, next of kin is daughter Conchita Mckenna Disposition: anticipate discharge when INR is stable between 2 to 3, likely to be discharged to rehab facility Vital Signs: Date Time Temp Pulse Resp B/P (MAP) Pulse Ox O2 Delivery O2 Flow Rate FiO2 08/14/17 15:16 36.7 91 18 125/76 (92) 95 Room Air 08/14/17 14:50 36.6 82 18 94 08/14/17 12:01 Room Air 08/14/17 11:56 36.6 82 18 107/68 (81) 94 08/14/17 08:02 Room Air 08/14/17 07:04 36.8 96 20 124/78 (93) 96 Room Air 08/14/17 04:50 Room Air 08/14/17 02:44 36.7 91 18 146/87 (106) 96 Room Air 08/14/17 00:18 36.5 86 19 152/79 (103) 94 Room Air 08/14/17 00:15 Room Air 08/13/17 20:13 Room Air 08/13/17 18:59 36.8 84 18 138/76 (96) 94 Room Air 08/13/17 16:36 36.8 81 18 115/67 (83) 97 Room Air 08/13/17 16:00 Room Air Lab Results: Results Past 24 Hours Test 08/14/17 06:44 Range/Units White Blood Count 8.96 4.8-10.8 K/uL Red Blood Count 4.11 4.7-6.1 M/uL Hemoglobin 14.1 14.0-18.0 g/dL Hematocrit 40.6 42-52 % Mean Corpuscular Volume 98.8 80-100 fL Mean Corpuscular Hemoglobin 34.3 25-34 pg Mean Corpuscular Hemoglobin Concent 34.7 32-36 g/dl Platelet Count 208 130-400 K/uL Mean Platelet Volume 10.6 7.4-10.4 fL Neutrophils (%) (Auto) 82.3 % Lymphocytes (%) (Auto) 8.4 % Monocytes (%) (Auto) 7.4 % Eosinophils (%) (Auto) 1.5 % Basophils (%) (Auto) 0.2 % Neutrophils # (Auto) 7.38 1.4-6.5 K/uL Lymphocytes # (Auto) 0.75 1.2-3.4 K/uL Monocytes # (Auto) 0.66 0.11-0.59 K/uL Eosinophils # (Auto) 0.13 0-0.5 K/uL Basophils # (Auto) 0.02 0-0.2 K/uL RDW Standard Deviation 52.0 36.4-46.3 fL RDW Coefficient of Variation 14.5 11.5-14.5 % Immature Granulocyte % (Auto) 0.2 % Immature Granulocyte # (Auto) 0.02 0.00-0.02 K/uL Prothrombin Time 17.6 9.0-12.0 SECONDS Prothromb Time International Ratio 1.6 0.9-1.1 Sodium Level 138 136-145 mmol/L Potassium Level 3.3 3.5-5.1 mmol/L Chloride Level 105 98-107 mmol/L Carbon Dioxide Level 26 21-32 mmol/L Anion Gap 7.0 3-11 mmol/L Blood Urea Nitrogen 12 7-18 mg/dl Creatinine 0.91 0.60-1.40 mg/dl Est Creatinine Clear Calc Drug Dose 71.3 ml/min Estimated GFR () 97.9 Estimated GFR (Non- 84.5 BUN/Creatinine Ratio 13.2 10-20 Random Glucose 91 70-99 mg/dl Calcium Level 8.3 8.5-10.1 mg/dl Magnesium Level 1.9 1.8-2.4 mg/dl Total Bilirubin 0.4 0.2-1 mg/dl Aspartate Amino Transf (AST/SGOT) 30 15-37 U/L Alanine Aminotransferase (ALT/SGPT) 12 12-78 U/L Alkaline Phosphatase 83 45-117 U/L Total Protein 6.3 6.4-8.2 gm/dl Albumin 2.2 3.4-5.0 gm/dl Globulin 4.1 2.5-4.0 gm/dl Albumin/Globulin Ratio 0.5 0.9-2
[2017-08-14] MEDS ORDERED: POTASSIUM CHLR 10 MEQ / WTR 10 MEQ in PREMIXED WATER 100 ML IV ONE (15:45)
[2017-08-14] MEDS: POTASSIUM CHLORIDE 20 MEQ TABCR PO ONE ×2 (15:45→16:56)
[2017-08-14] MEDS: WARFARIN SOD 5 MG TAB PO SCH ×2 (16:57→17:05)
[2017-08-15] MEDS: ENOXAPARIN 60 MG/0.6 ML SYR SQ SCH (04:00)
[2017-08-15] MEDS ORDERED: VANCOMYCIN TROUGH SCH (05:30)
[2017-08-15 07:13] VITALS: BP 113/67; PULSE 104; TEMP 36.5; O2SAT 94
[2017-08-15] MEDS ORDERED: LORAZEPAM INJ 0.5 MG in SYRINGE 0.75 ML IV PRN (07:30)
[2017-08-15] MEDS: BOOST VANILLA PO SCH ×4 (08:07→21:00)
[2017-08-15] MEDS: ASPIRIN 81 MG ECTAB PO SCH (08:08)
[2017-08-15] MEDS: ATORVASTATIN 40 MG TAB PO SCH (08:08)
[2017-08-15] MEDS: CLOPIDOGREL BISULFATE 75 MG TAB PO SCH (08:08)
[2017-08-15] MEDS: CYANOCOBALAMIN 500 MCG TAB (VIT B-12) PO SCH (08:08)
[2017-08-15] MEDS: CALCIUM 600MG + VIT D 400 IU TAB PO SCH ×2 (08:09→09:00)
[2017-08-15] MEDS: MAGNESIUM OXIDE 400 MG TAB PO SCH ×2 (08:09→21:00)
[2017-08-15] MEDS: RANITIDINE HCL 150 MG TAB PO SCH (08:09)
[2017-08-15] MEDS: FERROUS SULFATE 325 MG TAB PO SCH ×2 (08:09→21:00)
[2017-08-15] MEDS: SERTRALINE HCL 50 MG TAB PO SCH (08:09)
[2017-08-15] MEDS: THIAMINE HCL 100 MG TAB PO SCH (08:09)
[2017-08-15] MEDS: NICOTINE 14 MG/24 HR TDSY TD SCH (08:10)
[2017-08-15 08:22] LABS: BASO % 0.2 %; BASO ABS # 0.02 K/uL (0-0.2); COMPLETE YES; HEMATOCRIT 38.4 % (42-52); IG% 0.4 %; LYMPH % 11.2 %; LYMPH ABS # 0.91 K/uL (1.2-3.4); MEAN CELL VOLUME 97.2 fL (80-100); MEAN CORPUSCULAR HEMOGLOBIN 34.2 pg (25-34); MEAN CORPUSCULAR HGB CONC 35.2 g/dl (32-36); MEAN PLATELET VOLUME 10.5 fL (7.4-10.4); NEUT % 77.2 %; PLATELET COUNT 228 K/uL (130-400); RED BLOOD COUNT 3.95 M/uL (4.7-6.1); WHITE BLOOD COUNT 8.13 K/uL (4.8-10.8)
[2017-08-15 08:31] LABS: INR 2.8 (0.9-1.1); PROTHROMBIN TIME (PATIENT) 31.4 SECONDS (9.0-12.0)
[2017-08-15 09:00] LABS: BUN/CREATININE RATIO 12.9 (10-20); CALCIUM 8.5 mg/dl (8.5-10.1); CREATININE 0.84 mg/dl (0.60-1.40); POTASSIUM 3.3 mmol/L (3.5-5.1)
[2017-08-15 09:03] LABS: ALB/GLOB RATIO 0.5 (0.9-2)
--- NOTE | 2017-08-15 12:55 | DIAGNOSTIC IMAGING REPORT ---
MRI OF THE BRAIN COMBO CLINICAL HISTORY: Change in mental status. COMPARISON STUDY: CT of the brain dated 08/11/2017. TECHNIQUE: MRI of the brain was performed utilizing various T1 and T2-weighted sequences in the axial, sagittal, and coronal planes. Contrast-enhanced sequences were acquired following the administration of 6.5 cc of Gadavist. FINDINGS: Brain parenchyma: There are age-related involutional changes noting mild subcortical and periventricular microangiopathic disease. There is no hemorrhage or mass effect. Chronic lacunar infarct identified in the left caudate head and the right thalamus. There is no restricted diffusion to suggest acute ischemia. No enhancing mass lesion is identified on the postcontrast images. Robbins-white matter differentiation is preserved. No extra-axial fluid collection is seen. The cerebellar tonsils are normal in configuration. Ventricles, sulci, and cisterns: Prominent secondary to involutional change. Pituitary and sella: Unremarkable. Intracranial vasculature: Normal flow voids are maintained at the skull base. Orbits: The bony orbits are grossly intact. Orbital contents are normal in appearance noting bilateral ocular lens implants. Sinuses and mastoids: Trace mucosal thickening is seen in the maxillary antra. The remaining paranasal sinuses and the mastoid air cells are clear. Calvarium: Unremarkable. Cervical cord: Partially visualized cervical spinal cord is normal in morphology and signal intensity. IMPRESSION: Senescent changes as above with no acute intracranial abnormality. Electronically signed by: Ricardo Eric M.D. 08/15/2017 12:53 PM Dictated Date/Time: 08/15/2017 12:49 PM
--- NOTE | 2017-08-15 14:24 | Progress Note ---
Internal Med Progress Note Date of Service: Aug 15, 2017. Provider Documentation: SUBJECTIVE: patient seen at bedside and cooperative on exam. no acute complaints of pain or shortness of breath by the patient. patient had beltre placed yesterday because of urinary retention. OBJECTIVE: Exam: General- no acute distress Eyes- EOMI ENT- moist oral membranes Neck- no JVD, trachea midline Lungs-Clear to auscultation Heart- sinus in rhythm Abdomen- soft, nontender Extremities-no edema, no calf pain Neuro- awake, verbal, cooperative on exam ASSESSMENT & PLAN: 72-year-old male with past medical history significant for CAD status post CABG and stent placement, history of DVT, PE, no longer on Coumadin at home, COPD, hyperlipidemia, depression, history of alcohol abuse, malnutrition, history of [place], history of peripheral neuropathy, who was brought in by daughter because of confusion. Altered mental status with improvements -Patient started on Cefepime and Vancomycin after ED presentation on 08/12/2017 for possible infectious causes of mental confusion -however, despite initial WBC of 14K, there were no clear sources of infection: patient has been afebrile with maximum temperature of 37.7 Celsius (99.86 F) on ED presentation of 08/11/17, CXR clear, UA with 1+ bacteria but subsequent urine culture NO GROWTH - LESS THAN 1,000 COLONIES/ML, and blood cultures on 08/11/17 no growth to date, no clinical signs of meningitis -WBC trended down from 14K to around 8K on next lab draw and dramatic decrease of Hgb from 17.8 to 13 without obvious source of bleed suggest that patient was initially very dehydrated, BUN/creatinine on initial ED labs with ACUTE KIDNEY INJURY also resolved on subsequent lab draws likely due to to improvements with IV hydration -patient also with alcohol history and may have caused self-neglect, also mentioned that he may have been taking sleeping pills, but patient's daughter believes he may be confabulating -is on thiamine, folic acid, B12 -no signs of active withdrawal from alcohol -ativan prn for agitation -home dose gabapentin and mirtazapine held to avoid sedation and hypotension, continuing sertraline -for all these above reasons of alternative causes of confusion, IV antibiotics stopped on 08/13/17, will monitor whether antibiotics needed -negative head CT on admission, MRI brain negative on 08/15/17 -RPR lab ordered on 08/15/17 Thromboembolism -Bilateral DVTs on lower extremity ultrasound 08/12/17, no vascular intervention as per vascular surgery on 08/12/17 -V/Q scan on 08/12/17 shows 2 large perfusion defects within the basal segments of the right lower lobe, very suspicious for pulmonary embolus -patient was on heparin drip from 08/12/17 to 08/13/17 -with stable Hgb around 13 on repeat labs and improved renal function on patient was started on Lovenox at 1 mg/kg [id number] for full dose anticoagulation -patient receiving 5 mg Warfarin daily from 08/12/17, monitor INR, INR on at 1.6 which is close to goal of 2 to 3, patient appears to not have taken the warfarin on 08/14/17 evening, INR 2.8 on 08/15/17, Lovenox q12h held on , Lovenox may need to be restarted if INR less than 2 -off telemetry on 08/14/17 as transthoracic echocardiogram x 2 have not identified thrombus in the heart History of myocardial infarction -continue home dual antiplatelets with aspirin and plavix. Continue statin History of Fall Risk -have discussed with patient's daughter and patient of risks of blood thinners given his health history but the need to prevent worsening thromboembolisms -PT/OT Evaluation: recommending rehab stay after hospital discharge -Case management aware that patient may require inpatient rehab such as [facility] after discharge Urination -beltre placed on 08/14/17 for urinary retention, have asked nurse to remove beltre on 08/15/17 and monitor for symptoms or with bladder scan for now Nutrition -dietary supplements with meals, replete electrolytes to treat hypokalemia or hypomagnesemia Code Status: DNR/DNI, next of kin is daughter Conchita Mckenna Disposition: anticipate discharge when INR is stable between 2 to 3, likely to be discharged to rehab facility Vital Signs: Date Time Temp Pulse Resp B/P (MAP) Pulse Ox O2 Delivery O2 Flow Rate FiO2 08/15/17 11:29 Room Air 08/15/17 07:13 36.5 104 16 113/67 (82) 94 Room Air 08/15/17 00:00 Room Air 08/14/17 23:19 37.0 88 16 115/71 (86) 96 Room Air 08/14/17 20:00 Room Air 08/14/17 16:40 Room Air 08/14/17 15:16 36.7 91 18 125/76 (92) 95 Room Air 08/14/17 14:50 36.6 82 18 94 Lab Results: Results Past 24 Hours Test 08/15/17 07:22 08/15/17 09:21 08/15/17 14:08 Range/Units White Blood Count 8.13 4.8-10.8 K/uL Red Blood Count 3.95 4.7-6.1 M/uL Hemoglobin 13.5 14.0-18.0 g/dL Hematocrit 38.4 42-52 % Mean Corpuscular Volume 97.2 80-100 fL Mean Corpuscular Hemoglobin 34.2 25-34 pg Mean Corpuscular Hemoglobin Concent 35.2 32-36 g/dl Platelet Count 228 130-400 K/uL Mean Platelet Volume 10.5 7.4-10.4 fL Neutrophils (%) (Auto) 77.2 % Lymphocytes (%) (Auto) 11.2 % Monocytes (%) (Auto) 10.0 % Eosinophils (%) (Auto) 1.0 % Basophils (%) (Auto) 0.2 % Neutrophils # (Auto) 6.28 1.4-6.5 K/uL Lymphocytes # (Auto) 0.91 1.2-3.4 K/uL Monocytes # (Auto) 0.81 0.11-0.59 K/uL Eosinophils # (Auto) 0.08 0-0.5 K/uL Basophils # (Auto) 0.02 0-0.2 K/uL RDW Standard Deviation 50.8 36.4-46.3 fL RDW Coefficient of Variation 14.1 11.5-14.5 % Immature Granulocyte % (Auto) 0.4 % Immature Granulocyte # (Auto) 0.03 0.00-0.02 K/uL Prothrombin Time 31.4 9.0-12.0 SECONDS Prothromb Time International Ratio 2.8 0.9-1.1 Sodium Level 137 136-145 mmol/L Potassium Level 3.3 3.5-5.1 mmol/L Chloride Level 103 98-107 mmol/L Carbon Dioxide Level 22 21-32 mmol/L Anion Gap 12.0 3-11 mmol/L Blood Urea Nitrogen 11 7-18 mg/dl Creatinine 0.84 0.60-1.40 mg/dl Est Creatinine Clear Calc Drug Dose 77.2 ml/min Estimated GFR () 102.1 Estimated GFR (Non- 88.1 BUN/Creatinine Ratio 12.9 10-20 Random Glucose 78 70-99 mg/dl Calcium Level 8.5 8.5-10.1 mg/dl Total Bilirubin 0.4 0.2-1 mg/dl Aspartate Amino Transf (AST/SGOT) 27 15-37 U/L Alanine Aminotransferase (ALT/SGPT) 10 12-78 U/L Alkaline Phosphatase 83 45-117 U/L Total Protein 6.1 6.4-8.2 gm/dl Albumin 2.1 3.4-5.0 gm/dl Globulin 4.0 2.5-4.0 gm/dl Albumin/Globulin Ratio 0.5 0.9-2
[2017-08-15] MEDS: POTASSIUM CHLR 10 MEQ / WTR 10 MEQ in PREMIXED WATER 100 ML IV SCH ×4 (14:30→19:51)
[2017-08-15 15:56] VITALS: BP 114/73; PULSE 87; TEMP 36.4; O2SAT 98
[2017-08-15 23:47] VITALS: BP 106/62; PULSE 91; TEMP 36.6; O2SAT 92
[2017-08-16 07:18] LABS: HEMATOCRIT 38.4 % (42-52); MEAN CELL VOLUME 97.5 fL (80-100); MEAN CORPUSCULAR HEMOGLOBIN 33.8 pg (25-34); MEAN CORPUSCULAR HGB CONC 34.6 g/dl (32-36); MEAN PLATELET VOLUME 10.2 fL (7.4-10.4); PLATELET COUNT 235 K/uL (130-400); RED BLOOD COUNT 3.94 M/uL (4.7-6.1); WHITE BLOOD COUNT 7.44 K/uL (4.8-10.8)
[2017-08-16] MEDS: BOOST VANILLA PO SCH ×4 (07:26→20:17)
[2017-08-16 07:30] LABS: INR 2.7 (0.9-1.1); PROTHROMBIN TIME (PATIENT) 30.6 SECONDS (9.0-12.0)
[2017-08-16] MEDS: NICOTINE 14 MG/24 HR TDSY TD SCH (07:30)
[2017-08-16] MEDS: CYANOCOBALAMIN 500 MCG TAB (VIT B-12) PO SCH (07:30)
[2017-08-16] MEDS: THIAMINE HCL 100 MG TAB PO SCH (07:30)
[2017-08-16] MEDS: ATORVASTATIN 40 MG TAB PO SCH (07:30)
[2017-08-16] MEDS: RANITIDINE HCL 150 MG TAB PO SCH (07:30)
[2017-08-16] MEDS: SERTRALINE HCL 50 MG TAB PO SCH (07:30)
[2017-08-16] MEDS: CLOPIDOGREL BISULFATE 75 MG TAB PO SCH (07:30)
[2017-08-16] MEDS: MAGNESIUM OXIDE 400 MG TAB PO SCH ×2 (07:31→20:17)
[2017-08-16] MEDS: ASPIRIN 81 MG CHEW PO SCH (07:31)
[2017-08-16] MEDS: FERROUS SULFATE 325 MG TAB PO SCH ×2 (07:31→20:17)
[2017-08-16 07:51] LABS: CREATININE 0.86 mg/dl (0.60-1.40); MAGNESIUM 1.8 mg/dl (1.8-2.4); POTASSIUM 3.7 mmol/L (3.5-5.1)
[2017-08-16 08:24] VITALS: BP 113/72; PULSE 89; TEMP 36.8; O2SAT 94
[2017-08-16] MEDS ORDERED: MAGNESIUM SULFATE 1GM / D5W 1 GM in PREMIXED IN D5W 100 ML IV STA (09:20)
[2017-08-16] MEDS ORDERED: POTASSIUM CHLORIDE 20 MEQ TABCR PO STA (09:20)
--- NOTE | 2017-08-16 15:13 | Neurology Consultation ---
Neurology Consultation Date of Consultation: Aug 16, 2017. Attending Physician: Mihir Rees M.D. Primary Care Physician: Raysa Jain M.D. Reason for Consultation: lethargy History of Present Illness Source: patient Sven is a 72 year old male with PMH CAD s/p CABG and stent placement, history of DVT, PE, no longer on Coumadin, COPD, DL, depression, history of EtOH abuse, malnutrition, history of [place], peripheral neuropathy who was casimiro to the ED by his daughter for confusion. He lives alone. He was hospitalized 11/2016 for in stent thrombosis and discharged to . He has been taking care of himself and paying his own bills. She went to check on him and and cleaned his bed and then went the next day and she felt he had not moved from the chair he was in the previous day. He was not eating or drinking and seemed more disoriented than before. She tried to get him out of the chair but she was unable so she called EMS and was brought to the hospital. He was arousal but no answering questions. Currently he is sitting up in bed. He states he is in a school but then says he know its a hospital. He also states he lives somewhere near [place] and that is where his lives. denies headache, vision changes, CP, SOB, abdominal pain, N, V. Past Medical/Surgical History Medical Problems: (1) Change in mental status Status: Acute (2) Closed fracture of neck of left humerus Status: Acute (3) Dehydration Status: Acute (4) Dehydration Status: Acute (5) History of alcohol abuse Status: Chronic (6) Leukocytosis Status: Acute (7) Multiple contusions Status: Acute (8) STEMI (ST elevation myocardial infarction) Status: Acute (9) STEMI (ST elevation myocardial infarction) Status: Acute (10) UTI (urinary tract infection) Status: Acute Social History Smoking Status: Current every day smoker Drug Use: none Marital Status: single Housing Status: lives alone Occupation Status: retired Allergies Coded Allergies: No Known Allergies (Unverified , 04/29/17) Current Inpatient Medications Current Inpatient Medications Medications (Trade) Dose Ordered Sig/Nieves Route Start Time Stop Time Status Last Admin Dose Admin Acetaminophen (Tylenol Tab) 650 mg Q4H PRN PO 08/12/17 01:30 09/11/17 01:29 08/15/17 06:33 650 MG Al Hydrox/Mg Hydrox/Simethicone (Maalox Max Susp) 15 ml Q4H PRN PO 08/12/17 01:30 09/11/17 01:29 Magnesium Hydroxide (Milk Of Magnesia Susp) 30 ml Q12H PRN PO 08/12/17 01:30 09/11/17 01:29 Ondansetron HCl (Zofran Inj) 4 mg Q6H PRN IV 08/12/17 01:30 09/11/17 01:29 Nitroglycerin (Nitrostat Tab) 0.4 mg UD PRN SL 08/12/17 01:30 09/11/17 01:29 Atorvastatin Calcium (Lipitor Tab) 80 mg DAILY PO 08/12/17 09:00 09/11/17 08:59 08/16/17 07:30 80 MG Clopidogrel Bisulfate (plAVix TAB) 75 mg DAILY PO 08/12/17 09:00 09/11/17 08:59 08/16/17 07:30 75 MG Cyanocobalamin (Vitamin B-12 Tab) 1,000 mcg DAILY PO 08/12/17 09:00 09/11/17 08:59 08/16/17 07:30 1,000 MCG Enalapril Maleate (Vasotec Tab) 5 mg DAILY PO 08/12/17 09:00 09/11/17 08:59 Future Hold 08/12/17 07:20 5 MG Folic Acid (Folvite Tab) 1 mg DAILY PO 08/12/17 09:00 09/11/17 08:59 08/16/17 07:31 1 MG Gabapentin (Neurontin Cap) 400 mg TID PO 08/12/17 09:00 09/11/17 08:59 Future Hold 08/12/17 07:19 400 MG Magnesium Oxide (Mag-Ox Tab) 400 mg BID PO 08/12/17 09:00 09/11/17 08:59 08/16/17 07:31 400 MG Ranitidine HCl (zANTac TAB) 150 mg DAILY PO 08/12/17 09:00 09/11/17 08:59 08/16/17 07:30 150 MG Sertraline HCl (Zoloft Tab) 50 mg DAILY PO 08/12/17 09:00 09/11/17 08:59 08/16/17 07:30 50 MG Thiamine HCl (Vitamin B-1 Tab) 100 mg DAILY PO 08/12/17 09:00 09/11/17 08:59 08/16/17 07:30 100 MG Ferrous Sulfate (Feosol Tab) 325 mg BID PO 08/12/17 09:00 09/11/17 08:59 08/16/17 07:31 325 MG Warfarin Sodium (Coumadin Tab) 5 mg DAILY@16 PO 08/12/17 16:00 09/11/17 15:59 08/13/17 16:00 5 MG Nicotine (Nicoderm Cq 14MG Patch) 1 patch QAM TD 08/14/17 09:00 09/13/17 08:59 08/16/17 07:30 1 PATCH Miscellaneous (Remove Nicoderm Patch) 1 ea HS N/A 08/13/17 21:00 09/12/17 20:59 08/15/17 21:01 1 EA Enteral Nutritional Formula (Boost) 1 can BID PO 08/13/17 19:00 09/12/17 18:59 08/15/17 08:07 1 CAN Enoxaparin Sodium (Lovenox Inj) 60 mg Q12H SQ 08/13/17 16:00 09/12/17 15:59 Future Hold 08/14/17 16:56 60 MG Lorazepam 0.5 mg/ Syringe 1 ml @ 1 mls/min Q4H PRN IV 08/15/17 07:30 09/14/17 07:29 08/15/17 11:34 1 MLS/MIN Aspirin (Aspirin Chew) 81 mg QAM PO 08/16/17 09:00 09/15/17 08:59 08/16/17 07:31 81 MG Physical Exam Vital Signs (Past 24 Hrs): Date Time Temp Pulse Resp B/P (MAP) Pulse Ox O2 Delivery O2 Flow Rate FiO2 08/16/17 08:45 Room Air 08/16/17 08:24 36.8 89 18 113/72 (86) 94 Room Air 08/16/17 00:00 Room Air 08/15/17 23:47 36.6 91 16 106/62 (77) 92 Room Air 08/15/17 20:00 Room Air 08/15/17 16:34 Room Air 08/15/17 15:56 36.4 87 18 114/73 (87) 98 Room Air Physical Exam: Constitutional: appearance nourished, pale, weak Ears, Nose, Mouth and Throat: mucous membranes moist, no injection and skin normal, eyes normal Cardiovascular: normal S-1 and S-2 and regular rate and rhythm Respiratory: clear to auscultation (CTA) and no rales, rhonchi or wheeze Musculoskeletal: no peripheral edema decreased distal pulses Skin: no stigmata of neurocutaneous disease noted and normal and intact, ingrow toe nails and erythema around nails, tender to touch bruises and abrasions on knees and feet. Eyes: extraocular muscles intact (EOMI) and pupils equal, round and reactive to light (PERRL) NEUROLOGIC EXAMINATION: Mental status: Alert and interactive Oriented 2017 Oriented to person Speech fluent with no evidence of aphasia Cranial Nerves refuses to smile or raise eye brows but face appears symmetric Reflexes: Deep tendon reflexes were symmetrical and graded 2/5 UE will not allow exam of LE states tender with touch Sensory: no sensory deficits with cool touch vibration decreased to ankles Coordination: will not do finger to nose Gait/Stance: Posture lying in bed Strength: does not cooperate with remainder of exam moves all extremities spontaneously Laboratory Results Past 24 Hours: 08/16/17 06:52 08/16/17 06:52 Test 08/15/17 18:33 08/16/17 06:52 Bedside Glucose 82 mg/dl (70-99) Red Blood Count 3.94 M/uL (4.7-6.1) Mean Corpuscular Volume 97.5 fL (80-100) Mean Corpuscular Hemoglobin 33.8 pg (25-34) Mean Corpuscular Hemoglobin Concent 34.6 g/dl (32-36) RDW Standard Deviation 50.9 fL (36.4-46.3) RDW Coefficient of Variation 14.2 % (11.5-14.5) Mean Platelet Volume 10.2 fL (7.4-10.4) Prothrombin Time 30.6 SECONDS (9.0-12.0) Prothromb Time International Ratio 2.7 (0.9-1.1) Est Creatinine Clear Calc Drug Dose 75.4 ml/min Estimated GFR () 101.1 Estimated GFR (Non- 87.2 Magnesium Level 1.8 mg/dl (1.8-2.4) Imaging MRI combo- Brain parenchyma: There are age-related involutional changes noting mild subcortical and periventricular microangiopathic disease. There is no hemorrhage or mass effect. Chronic lacunar infarct identified in the left caudate head and the right thalamus. There is no restricted diffusion to suggest acute ischemia. No enhancing mass lesion is identified on the postcontrast images. Robbins-white matter differentiation is preserved. No extra- axial fluid collection is seen. The cerebellar tonsils are normal in configuration. NM lung scan- Limited study without the ventilation portion of the study conducted. There are 2 large perfusion defects within the basal segments of the right lower lobe, very suspicious for pulmonary embolus. CT head- : No acute intracranial abnormality. TTE- no ASD Ejection Fraction = 50-55%. * There is a moderate sized wall motion abnormality involving the inferior and posterior badillo with hypokinesis to akinesis of the base and mid segements. * Aortic valve sclerosis mild, without significant aortic valvular stenosis. * Grade I diastolic dysfunction, (abnormal relaxation pattern). TTE- repeated with contrast * There is a moderate sized wall motion abnormality involving the inferior and posterior badillo with hypokinesis to akinesis of the base and mid segements. * There is hypokinesis of the apical septum. * Ejection Fraction = 45-50%. * There is no thrombus. Impression 72 year old male with lethargy and confusion Plan 1. EEG done pending read 2. MRI unremarkable for acute findings 3. folate, B12 for reversible causes 4. PT/OT for discharge needs 5. daughters input would be helpful but from report in chart it appears he was independent 6. suspect underlying dementia with superimposed delirium possibly from infection source doubt stop gabapentin is source since he came in with confusion further recommendations to follow I have seen and discussed above patient with Dr Loren Kebede, neurology PT seen and examined, chart reviewed, MRI, labs reviewed. Currently pt is mildly sleepy, but nonfocal. He appears to have a low-level delirium superimposed on what may be a mild dementia (hx of becoming confused when medically ill). No obvious etiology for dementia, although by report the pt is a heavy alcohol consumer. Labs for other treatable etiologies sent. Agree with thiamine supplementation. Await the results of the EEG, will follow with you, THALIA Kebede MD
[2017-08-16] MEDS: WARFARIN SOD 5 MG TAB PO SCH (15:56)
--- NOTE | 2017-08-16 16:19 | Progress Note ---
Internal Med Progress Note Date of Service: Aug 16, 2017. Provider Documentation: SUBJECTIVE: patient seen at bedside in the AM awaking from sleep and somewhat lethargic. compared to initial hospital admission when patient was minimally responsive, patient's mental status has improved but still does not reflect like someone who was living independently. neurology was consulted in the AM and patient s/p EEG with results pending. have re-examined patient this afternoon and patient more awake and alert watching TV while in a semi reclined position sitting on bed. The news channel was on and when I asked the patient what he was watching, he reported that he was watching football. I asked more questions about how he was able to live by himself at home before or who helped him with his meals or what he would usually eat for dinner; patient would appear to focus and tried to recall but this would not elicit an answer from him, when moving on to the next question this would elicit a verbal response that he heard the question but still could not answer that question or it would take a long time for him to say that his daughter helped him without further elaboration OBJECTIVE: Exam: General- no acute distress Eyes- EOMI ENT- moist oral membranes Neck- no JVD, trachea midline Lungs-Clear to auscultation Heart- sinus in rhythm Abdomen- soft, nontender Extremities-no edema, no calf pain Neuro-/Psych: see above ASSESSMENT & PLAN: 72-year-old male with past medical history significant for CAD status post CABG and stent placement, history of DVT, PE, no longer on Coumadin at home, COPD, hyperlipidemia, depression, history of alcohol abuse, malnutrition, history of [place], history of peripheral neuropathy, who was brought in by daughter because of confusion. Altered mental status with improvements -Patient started on Cefepime and Vancomycin after ED presentation on 08/12/2017 for possible infectious causes of mental confusion -however, despite initial WBC of 14K, there were no clear sources of infection: patient has been afebrile with maximum temperature of 37.7 Celsius (99.86 F) on ED presentation of 08/11/17, CXR clear, UA with 1+ bacteria but subsequent urine culture NO GROWTH - LESS THAN 1,000 COLONIES/ML, and blood cultures on 08/11/17 no growth to date, no clinical signs of meningitis -WBC trended down from 14K to around 8K on next lab draw and dramatic decrease of Hgb from 17.8 to 13 without obvious source of bleed suggest that patient was initially very dehydrated, BUN/creatinine on initial ED labs with ACUTE KIDNEY INJURY also resolved on subsequent lab draws likely due to to improvements with IV hydration -patient also with alcohol history and may have caused self-neglect, also mentioned that he may have been taking sleeping pills, but patient's daughter believes he may be confabulating -is on thiamine, folic acid, B12 -no signs of active withdrawal from alcohol -ativan prn for agitation -home dose gabapentin and mirtazapine held to avoid sedation and hypotension, continuing sertraline -for all these above reasons of alternative causes of confusion, IV antibiotics stopped on 08/13/17, will monitor whether antibiotics needed -negative head CT on admission, MRI brain negative on 08/15/17 -RPR lab negative on 08/15/17 -EEG completed on 08/16/17 with results pending, neurology consulted on mental status with B12 and folate levels pending Thromboembolism -Bilateral DVTs on lower extremity ultrasound 08/12/17, no vascular intervention as per vascular surgery on 08/12/17 -V/Q scan on 08/12/17 shows 2 large perfusion defects within the basal segments of the right lower lobe, very suspicious for pulmonary embolus -off telemetry on 08/14/17 as transthoracic echocardiogram x 2 have not identified thrombus in the heart -patient was on heparin drip from 08/12/17 to 08/13/17 -with stable Hgb around 13 on repeat labs and improved renal function on patient was started on Lovenox at 1 mg/kg [id number] for full dose anticoagulation -patient receiving 5 mg Warfarin daily from 08/12/17, monitor INR, INR on at 1.6 which is close to goal of 2 to 3, patient appears to not have taken the warfarin on 08/14/17 evening, INR 2.8 on 08/15/17, Lovenox q12h held on , Lovenox may need to be restarted if INR less than 2, INR 2.7 on 08/16/17 History of myocardial infarction -continue home dual antiplatelets with aspirin and plavix. Continue statin History of Fall Risk -have discussed with patient's daughter and patient of risks of blood thinners given his health history but the need to prevent worsening thromboembolisms -PT/OT Evaluation: recommending rehab stay after hospital discharge -Case management aware that patient may require inpatient rehab such as [facility] after discharge Urination -beltre placed on 08/14/17 for urinary retention, have asked nurse to remove beltre on 08/15/17 and monitor for symptoms or with bladder scan -nurse asked to send UA if urine available on 08/16/17 Nutrition -dietary supplements with meals, replete electrolytes to treat hypokalemia or hypomagnesemia Code Status: DNR/DNI, next of kin is daughter Conchita Mckenna Disposition: likely to be discharged to rehab facility on coumadin Vital Signs: Date Time Temp Pulse Resp B/P (MAP) Pulse Ox O2 Delivery O2 Flow Rate FiO2 08/16/17 08:45 Room Air 08/16/17 08:24 36.8 89 18 113/72 (86) 94 Room Air 08/16/17 00:00 Room Air 08/15/17 23:47 36.6 91 16 106/62 (77) 92 Room Air 08/15/17 20:00 Room Air 08/15/17 16:34 Room Air Lab Results: Results Past 24 Hours Test 08/15/17 18:33 08/16/17 06:52 08/16/17 15:26 Range/Units Bedside Glucose 82 70-99 mg/dl White Blood Count 7.44 4.8-10.8 K/uL Red Blood Count 3.94 4.7-6.1 M/uL Hemoglobin 13.3 14.0-18.0 g/dL Hematocrit 38.4 42-52 % Mean Corpuscular Volume 97.5 80-100 fL Mean Corpuscular Hemoglobin 33.8 25-34 pg Mean Corpuscular Hemoglobin Concent 34.6 32-36 g/dl RDW Standard Deviation 50.9 36.4-46.3 fL RDW Coefficient of Variation 14.2 11.5-14.5 % Platelet Count 235 130-400 K/uL Mean Platelet Volume 10.2 7.4-10.4 fL Prothrombin Time 30.6 9.0-12.0 SECONDS Prothromb Time International Ratio 2.7 0.9-1.1 Potassium Level 3.7 3.5-5.1 mmol/L Creatinine 0.86 0.60-1.40 mg/dl Est Creatinine Clear Calc Drug Dose 75.4 ml/min Estimated GFR () 101.1 Estimated GFR (Non- 87.2 Magnesium Level 1.8 1.8-2.4 mg/dl
--- NOTE | 2017-08-16 16:59 | ELECTROENCEPHALOGRAPH REPORT ---
FOR: Dr. Rees CLINICAL DIAGNOSIS: Confusional state, question non-convulsive seizures. ELECTROENCEPHALOGRAM DIAGNOSIS: Mildly diffusely abnormal EEG during wakefulness. DESCRIPTION OF TRACING: This EEG was done as a bedside recording with simultaneous video analysis of patient movement and behavior. There is quite a bit of muscle movement artifact, which is captured both on the EEG and on video recording, which showed the patient to be rotating and gesticulating in bed throughout most of the recording. Most of this activity shows up in the posterior head leads, unfortunately obscuring the alpha rhythms in these zones. Between these episodes, it does appear to be some form of alpha rhythm of low voltage, probably of up to 8-9 Hz of maximum frequency and of up to 30 microvolts of maximum amplitude, but this is very inconsistent and difficult to document reliably. Polymorphic mid to lower frequency theta activity intermixed with some waveforms in the delta range is seen over central regions in a symmetrical fashion. Beta activity may well be present bifrontally, but there is quite a bit of muscle movement artifact, which also obscures this. Photic stimulation was not performed. Hyperventilation was not performed. Drowsiness and light sleep are not clearly recorded. At no time during the current tracing is there evidence for a clearcut potentially epileptogenic activity in the form of polyspike or spike wave bursts, focal sharp waves or focal spikes. INTERPRETATION: This EEG is consistent with a mild generalized nonspecific encephalopathy without lateralizing features and without clear cut potentially epileptogenic activity. The pattern is highly nonspecific and could correlate with any one on the number of toxic or metabolic encephalopathies.
[2017-08-16 18:48] LABS: URINE APPEARANCE CLEAR (CLEAR); URINE BILIRUBIN NEG (NEG); URINE COLOR YELLOW; URINE NITRITE NEG (NEG); URINE SPECIFIC GRAVITY 1.023 (1.000-1.030); UROBILINOGEN NEG (NEG); ZZUR CULT IF INDIC CLEAN CATCH NO
[2017-08-16 18:50] LABS: MANUAL MICROSCOPIC REQUIRED? NO; REVIEW REQ? NO
[2017-08-16 20:00] VITALS: O2SAT 94
[2017-08-17 00:26] VITALS: BP 121/73; PULSE 98; TEMP 36.3; O2SAT 98
[2017-08-17] MEDS: BOOST VANILLA PO SCH ×6 (07:53→21:02)
[2017-08-17] MEDS: ASPIRIN 81 MG CHEW PO SCH (07:53)
[2017-08-17] MEDS: CLOPIDOGREL BISULFATE 75 MG TAB PO SCH (07:54)
[2017-08-17] MEDS: MAGNESIUM OXIDE 400 MG TAB PO SCH ×2 (07:54→21:01)
[2017-08-17] MEDS: SERTRALINE HCL 50 MG TAB PO SCH (07:54)
[2017-08-17] MEDS: RANITIDINE HCL 150 MG TAB PO SCH (07:54)
[2017-08-17] MEDS: ATORVASTATIN 40 MG TAB PO SCH (07:54)
[2017-08-17] MEDS: FERROUS SULFATE 325 MG TAB PO SCH ×2 (07:54→21:02)
[2017-08-17] MEDS: NICOTINE 14 MG/24 HR TDSY TD SCH (07:54)
[2017-08-17] MEDS: THIAMINE HCL 100 MG TAB PO SCH (07:54)
[2017-08-17] MEDS: CYANOCOBALAMIN 500 MCG TAB (VIT B-12) PO SCH (07:54)
[2017-08-17 08:01] LABS: PROTHROMBIN TIME (PATIENT) 41.4 SECONDS (9.0-12.0)
[2017-08-17 08:09] LABS: INR 3.7 (0.9-1.1)
[2017-08-17 09:58] VITALS: BP 139/85
[2017-08-17 15:35] VITALS: BP 138/88; PULSE 95; TEMP 36.5; O2SAT 97
--- NOTE | 2017-08-17 16:33 | Neurology Progress Notes ---
Neurology Progress Note Date of Service Aug 17, 2017. Taylor Machuca is a 72 year old male with PMH CAD s/p CABG and stent placement, history of DVT, PE, no longer on Coumadin, COPD, DL, depression, history of EtOH abuse, malnutrition, history of [place], peripheral neuropathy who was casimiro to the ED by his daughter for confusion. He lives alone. He was hospitalized 11/2016 for in stent thrombosis and discharged to . He has been taking care of himself and paying his own bills. She went to check on him and and cleaned his bed and then went the next day and she felt he had not moved from the chair he was in the previous day. He was not eating or drinking and seemed more disoriented than before. She tried to get him out of the chair but she was unable so she called EMS and was brought to the hospital. He was arousal but no answering questions. Currently he is sitting up in bed and appears more alert than yesterday. He states he ate his lunch. denies headache, vision changes, CP, SOB, abdominal pain, N, V. Objective Date Time Temp Pulse Resp B/P (MAP) Pulse Ox O2 Delivery O2 Flow Rate FiO2 08/17/17 15:35 36.5 95 20 138/88 (105) 97 Room Air 08/17/17 08:00 Room Air 08/17/17 00:26 36.3 98 18 121/73 (89) 98 Room Air 08/16/17 20:00 94 Room Air 08/16/17 17:00 Room Air Last 24 Hours Test 08/17/17 07:16 Prothrombin Time 41.4 SECONDS Prothromb Time International Ratio 3.7 Imaging: : This EEG is consistent with a mild generalized nonspecific encephalopathy without lateralizing features and without clear cut potentially epileptogenic activity. The pattern is highly nonspecific and could correlate with any one on the number of toxic or metabolic encephalopathies. Exam: Physical Exam: Constitutional: appearance nourished, thin pale Ears, Nose, Mouth and Throat: mucous membranes moist, no injection and skin normal, eyes normal Cardiovascular: normal S-1 and S-2 and regular rate and rhythm Respiratory: coarse breath sounds Musculoskeletal: no peripheral edema and good distal pulses Skin: no stigmata of neurocutaneous disease noted and normal and intact Eyes: extraocular muscles intact (EOMI) and pupils equal, round and reactive to light (PERRL) NEUROLOGIC EXAMINATION: Mental status: Alert and interactive Oriented to hospital and states he lives in an apartment in [place], he lives alone and pays his own bills Oriented to person Speech fluent with no evidence of aphasia Cranial Nerves smile eye brow raise symmetric, tongue midline Reflexes: Deep tendon reflexes were symmetrical and graded 2/5. Plantar responses were flexor. Sensory: light touch or cool touch, vibration decreased to ankles Coordination: finger to nose without bi pass Gait/Stance: Posture normal. sitting up in bed Motor: Negative for pronator drift of out stretched arms with eyes closed. Strength: biceps triceps hand drill sergeant 5/5 bilaterally hip flex plantar flex ext 5/5 bilaterally Current Inpatient Medications Medications (Trade) Dose Ordered Sig/Nieves Route Start Time Stop Time Status Last Admin Dose Admin Acetaminophen (Tylenol Tab) 650 mg Q4H PRN PO 08/12/17 01:30 09/11/17 01:29 08/15/17 06:33 650 MG Al Hydrox/Mg Hydrox/Simethicone (Maalox Max Susp) 15 ml Q4H PRN PO 08/12/17 01:30 09/11/17 01:29 Magnesium Hydroxide (Milk Of Magnesia Susp) 30 ml Q12H PRN PO 08/12/17 01:30 09/11/17 01:29 Ondansetron HCl (Zofran Inj) 4 mg Q6H PRN IV 08/12/17 01:30 09/11/17 01:29 Nitroglycerin (Nitrostat Tab) 0.4 mg UD PRN SL 08/12/17 01:30 09/11/17 01:29 Atorvastatin Calcium (Lipitor Tab) 80 mg DAILY PO 08/12/17 09:00 09/11/17 08:59 08/17/17 07:54 80 MG Clopidogrel Bisulfate (plAVix TAB) 75 mg DAILY PO 08/12/17 09:00 09/11/17 08:59 08/17/17 07:54 75 MG Cyanocobalamin (Vitamin B-12 Tab) 1,000 mcg DAILY PO 08/12/17 09:00 09/11/17 08:59 08/17/17 07:54 1,000 MCG Enalapril Maleate (Vasotec Tab) 5 mg DAILY PO 08/12/17 09:00 09/11/17 08:59 Future Hold 08/12/17 07:20 5 MG Folic Acid (Folvite Tab) 1 mg DAILY PO 08/12/17 09:00 09/11/17 08:59 08/17/17 07:53 1 MG Gabapentin (Neurontin Cap) 400 mg TID PO 08/12/17 09:00 09/11/17 08:59 Future Hold 08/12/17 07:19 400 MG Magnesium Oxide (Mag-Ox Tab) 400 mg BID PO 08/12/17 09:00 09/11/17 08:59 08/17/17 07:54 400 MG Ranitidine HCl (zANTac TAB) 150 mg DAILY PO 08/12/17 09:00 09/11/17 08:59 08/17/17 07:54 150 MG Sertraline HCl (Zoloft Tab) 50 mg DAILY PO 08/12/17 09:00 09/11/17 08:59 08/17/17 07:54 50 MG Thiamine HCl (Vitamin B-1 Tab) 100 mg DAILY PO 08/12/17 09:00 09/11/17 08:59 08/17/17 07:54 100 MG Ferrous Sulfate (Feosol Tab) 325 mg BID PO 08/12/17 09:00 09/11/17 08:59 08/17/17 07:54 325 MG Nicotine (Nicoderm Cq 14MG Patch) 1 patch QAM TD 08/14/17 09:00 09/13/17 08:59 08/17/17 07:54 1 PATCH Miscellaneous (Remove Nicoderm Patch) 1 ea HS N/A 08/13/17 21:00 09/12/17 20:59 08/16/17 20:17 1 EA Enteral Nutritional Formula (Boost) 1 can BID PO 08/13/17 19:00 09/12/17 18:59 08/17/17 07:53 1 CAN Lorazepam 0.5 mg/ Syringe 1 ml @ 1 mls/min Q4H PRN IV 08/15/17 07:30 09/14/17 07:29 08/15/17 11:34 1 MLS/MIN Aspirin (Aspirin Chew) 81 mg QAM PO 08/16/17 09:00 09/15/17 08:59 08/17/17 07:53 81 MG Impression 72 year old male with lethargy and confusion- improving Plan 1. EEG encephalopathy no seizure focus 2. MRI unremarkable for acute findings 3. folate, B12 for reversible causes- high normal 4. PT/OT for discharge needs 5. daughters input would be helpful but from report in chart it appears he was independent 6. suspect underlying dementia with superimposed delirium possibly from infection source doubt stop gabapentin is source since he came in with confusion 7. Sven appears to be improving I have seen and discussed above patient with Dr Loren Kebede, neurology Appears less confused today, mildly confabulatory. Suspect delirium superimposed on dementia, query etoh. will follow with you, THALIA Kebede MD
--- NOTE | 2017-08-17 16:48 | Progress Note ---
Internal Med Progress Note Date of Service: Aug 17, 2017. Provider Documentation: SUBJECTIVE: resting comfortably denies any pain no nausea eating ok afebrile denies sob OBJECTIVE: Vital Signs-as noted below Exam: General-alert and oriented x 1. Not in distress ENT-normal hearing Neck-no neck masses Lungs- cta b/l no wheezing or crackles Heart-s1 and s2 heard regular rate and rhythm no murmurs Abdomen-soft bowel sounds present no tenderness present no distension Extremities-no edema no erythema Neuro-alert and oriented x 1 moves extremities Lab data as noted below. ASSESSMENT & PLAN: 72-year-old male with past medical history significant for CAD status post CABG and stent placement, history of DVT, PE, no longer on Coumadin at home, COPD, hyperlipidemia, depression, history of alcohol abuse, malnutrition, history of [place], history of peripheral neuropathy, who was brought in by daughter because of confusion. Altered mental status with improvements encephalopathy metabolic? initially was started on iv abx but were stopped as no source of infection identified CT head, MRI head EEG unremarkable vitamin b12 and folate normal\Neurology following- mostly dementia with delirium improving Thromboembolism Bilateral DVTs on lower extremity ultrasound 08/12/17, V/Q scan on 08/12/17 shows 2 large perfusion defects within the basal segments of the right lower lobe, very suspicious for pulmonary embolus initially was on heparin later changed to Lovenox bridge and Coumadin inr 3.7 today. Lovenox stopped f/u inr. Bilateral superficial femoral artery occlusion Bilateral infra popliteal artery occlusive disease asymptomatic seen by vascular surgery- no plan for intervention at this time History of myocardial infarction To continue home dual antiplatelets with aspirin and plavix. Continue statin History of Fall Risk pLAN FOR REHAB Nutrition dietary supplements with meals, replete electrolytes to treat hypokalemia or hypomagnesemia Code Status: DNR/DNI, next of kin is daughter Conchita Mckenna Disposition Plan for rehab soon Vital Signs: Date Time Temp Pulse Resp B/P (MAP) Pulse Ox O2 Delivery O2 Flow Rate FiO2 08/17/17 15:35 36.5 95 20 138/88 (105) 97 Room Air 08/17/17 08:00 Room Air 08/17/17 00:26 36.3 98 18 121/73 (89) 98 Room Air 08/16/17 20:00 94 Room Air 08/16/17 17:00 Room Air Lab Results: Results Past 24 Hours Test 08/17/17 07:16 Range/Units Prothrombin Time 41.4 9.0-12.0 SECONDS Prothromb Time International Ratio 3.7 0.9-1.1
[2017-08-18] VITALS: BP 124/72; PULSE 89; TEMP 36.4; O2SAT 95; O2SAT 97
[2017-08-18] MEDS: FERROUS SULFATE 325 MG TAB PO SCH ×3 (07:52→20:08)
[2017-08-18] MEDS: ATORVASTATIN 40 MG TAB PO SCH ×2 (07:52→08:40)
[2017-08-18] MEDS: CLOPIDOGREL BISULFATE 75 MG TAB PO SCH ×2 (07:52→08:40)
[2017-08-18] MEDS: CYANOCOBALAMIN 500 MCG TAB (VIT B-12) PO SCH ×2 (07:52→08:40)
[2017-08-18] MEDS: RANITIDINE HCL 150 MG TAB PO SCH ×2 (07:53→08:40)
[2017-08-18] MEDS: ASPIRIN 81 MG CHEW PO SCH ×2 (07:53→08:40)
[2017-08-18] MEDS: SERTRALINE HCL 50 MG TAB PO SCH ×2 (07:53→08:40)
[2017-08-18] MEDS: BOOST VANILLA PO SCH ×2 (07:54)
[2017-08-18] MEDS: THIAMINE HCL 100 MG TAB PO SCH ×2 (07:54→08:38)
[2017-08-18] MEDS: MAGNESIUM OXIDE 400 MG TAB PO SCH ×3 (07:54→20:07)
[2017-08-18] MEDS: NICOTINE 14 MG/24 HR TDSY TD SCH (07:56)
[2017-08-18 08:18] LABS: INR > 8.0 (0.9-1.1); PROTHROMBIN TIME (PATIENT) > 100.0 SECONDS (9.0-12.0)
[2017-08-18] MEDS ORDERED: PHYTONADIONE 5 MG TAB PO ONE (08:45)
[2017-08-18 15:17] VITALS: BP 115/72; PULSE 95; TEMP 36.9; O2SAT 95
--- NOTE | 2017-08-18 16:38 | Progress Note ---
Internal Med Progress Note Date of Service: Aug 18, 2017. Provider Documentation: SUBJECTIVE: resting comfortably says he is doing fine denies any complaints knows he is in [facility] afebrile patient refusing meds OBJECTIVE: Vital Signs-as noted below Exam: General-alert and oriented x 2. Not in distress ENT-normal hearing Neck-no neck masses Lungs- cta b/l no wheezing or crackles Heart-s1 and s2 heard regular rate and rhythm no murmurs Abdomen-soft bowel sounds present no tenderness present no distension Extremities-no edema no erythema Neuro-alert and oriented x 2 moves extremities Lab data as noted below. ASSESSMENT & PLAN: 72-year-old male with past medical history significant for CAD status post CABG and stent placement, history of DVT, PE, no longer on Coumadin at home, COPD, hyperlipidemia, depression, history of alcohol abuse, malnutrition, history of [place], history of peripheral neuropathy, who was brought in by daughter because of confusion. Altered mental status with improvements encephalopathy metabolic? initially was started on iv abx but were stopped as no source of infection identified CT head, MRI head EEG unremarkable vitamin b12 and folate normal\Neurology following- mostly dementia with delirium continue to monitor Thromboembolism Bilateral DVTs on lower extremity ultrasound 08/12/17, V/Q scan on 08/12/17 shows 2 large perfusion defects within the basal segments of the right lower lobe, very suspicious for pulmonary embolus initially was on heparin later changed to Lovenox bridge and Coumadin inr 3.7 on 08/17/17 Coumadin held and Lovenox stopped INR >8.0 continue to hold coumadin. will give a dose of vitamin k 2.5mg f/u inr in am Bilateral superficial femoral artery occlusion Bilateral infra popliteal artery occlusive disease asymptomatic seen by vascular surgery- no plan for intervention at this time History of myocardial infarction To continue home dual antiplatelets with aspirin and plavix. Continue statin History of Fall Risk pLAN FOR REHAB peripheral neuropathy will restart gabapentin at lower dose Nutrition dietary supplements with meals, replete electrolytes to treat hypokalemia or hypomagnesemia Code Status: DNR/DNI, next of kin is daughter Conchita Mckenna Disposition Plan for rehab soon Vital Signs: Date Time Temp Pulse Resp B/P (MAP) Pulse Ox O2 Delivery O2 Flow Rate FiO2 08/18/17 15:17 36.9 95 22 115/72 (86) 95 Room Air 08/18/17 08:00 Room Air 08/18/17 00:00 36.4 89 18 124/72 (89) 95 Room Air 08/18/17 00:00 97 Room Air Lab Results: Results Past 24 Hours Test 08/18/17 06:46 Range/Units Prothrombin Time > 100.0 9.0-12.0 SECONDS Prothromb Time International Ratio > 8.0 0.9-1.1
--- NOTE | 2017-08-18 16:54 | Neurology Progress Notes ---
Neurology Progress Note Date of Service Aug 18, 2017. Taylor Machuca is a 72 year old male with PMH CAD s/p CABG and stent placement, history of DVT, PE, no longer on Coumadin, COPD, DL, depression, history of EtOH abuse, malnutrition, history of [place], peripheral neuropathy who was casimiro to the ED by his daughter for confusion. He lives alone. He was hospitalized 11/2016 for in stent thrombosis and discharged to . He has been taking care of himself and paying his own bills. She went to check on him and and cleaned his bed and then went the next day and she felt he had not moved from the chair he was in the previous day. He was not eating or drinking and seemed more disoriented than before. She tried to get him out of the chair but she was unable so she called EMS and was brought to the hospital. He was arousal but no answering questions. Currently he is sitting up in bed and appears more alert than yesterday. He states he didn't eat his lunch he just wasn't hungry. He states this happens to him quit often. denies headache, vision changes, CP, SOB, abdominal pain, N, V. when asked if his daughter was in to visit he states he thinks she was. Objective Date Time Temp Pulse Resp B/P (MAP) Pulse Ox O2 Delivery O2 Flow Rate FiO2 08/18/17 15:17 36.9 95 22 115/72 (86) 95 Room Air 08/18/17 08:00 Room Air 08/18/17 00:00 36.4 89 18 124/72 (89) 95 Room Air 08/18/17 00:00 97 Room Air Last 24 Hours Test 08/18/17 06:46 Prothrombin Time > 100.0 SECONDS Prothromb Time International Ratio > 8.0 Imaging: no new imaging Exam: Physical Exam: Constitutional: appearance nourished, thin pale Ears, Nose, Mouth and Throat: mucous membranes moist, no injection and skin normal, eyes normal Cardiovascular: normal S-1 and S-2 and regular rate and rhythm Respiratory: course breath sounds Musculoskeletal: no peripheral edema and good distal pulses Skin: no stigmata of neurocutaneous disease noted and normal and intact Eyes: extraocular muscles intact (EOMI) and pupils equal, round and reactive to light (PERRL) NEUROLOGIC EXAMINATION: Mental status: Alert and interactive Oriented hospital lives in [place] in an apartment he lives alone Oriented to person Speech fluent with no evidence of aphasia Cranial Nerves smile eye brow raise symmetric tongue midline Reflexes: Deep tendon reflexes were symmetrical and graded 2/5. Plantar responses were flexor. Sensory: no sensory deficits to light touch or cool , decrease to vibration from toes to ankles Coordination: finger to nose with no bipass or tremor Gait/Stance: Posture lying in bed Motor: Negative for pronator drift of out stretched arms with eyes closed. 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 5/5, hip flex plantar flex ext 5/5 Current Inpatient Medications Medications (Trade) Dose Ordered Sig/Nieves Route Start Time Stop Time Status Last Admin Dose Admin Acetaminophen (Tylenol Tab) 650 mg Q4H PRN PO 08/12/17 01:30 09/11/17 01:29 08/15/17 06:33 650 MG Al Hydrox/Mg Hydrox/Simethicone (Maalox Max Susp) 15 ml Q4H PRN PO 08/12/17 01:30 09/11/17 01:29 Magnesium Hydroxide (Milk Of Magnesia Susp) 30 ml Q12H PRN PO 08/12/17 01:30 09/11/17 01:29 Ondansetron HCl (Zofran Inj) 4 mg Q6H PRN IV 08/12/17 01:30 09/11/17 01:29 Nitroglycerin (Nitrostat Tab) 0.4 mg UD PRN SL 08/12/17 01:30 09/11/17 01:29 Atorvastatin Calcium (Lipitor Tab) 80 mg DAILY PO 08/12/17 09:00 09/11/17 08:59 08/17/17 07:54 80 MG Clopidogrel Bisulfate (plAVix TAB) 75 mg DAILY PO 08/12/17 09:00 09/11/17 08:59 08/17/17 07:54 75 MG Cyanocobalamin (Vitamin B-12 Tab) 1,000 mcg DAILY PO 08/12/17 09:00 09/11/17 08:59 08/17/17 07:54 1,000 MCG Enalapril Maleate (Vasotec Tab) 5 mg DAILY PO 08/12/17 09:00 09/11/17 08:59 Future Hold 08/12/17 07:20 5 MG Folic Acid (Folvite Tab) 1 mg DAILY PO 08/12/17 09:00 09/11/17 08:59 08/17/17 07:53 1 MG Magnesium Oxide (Mag-Ox Tab) 400 mg BID PO 08/12/17 09:00 09/11/17 08:59 08/17/17 21:01 400 MG Ranitidine HCl (zANTac TAB) 150 mg DAILY PO 08/12/17 09:00 09/11/17 08:59 08/17/17 07:54 150 MG Sertraline HCl (Zoloft Tab) 50 mg DAILY PO 08/12/17 09:00 09/11/17 08:59 08/17/17 07:54 50 MG Thiamine HCl (Vitamin B-1 Tab) 100 mg DAILY PO 08/12/17 09:00 09/11/17 08:59 08/18/17 07:54 100 MG Ferrous Sulfate (Feosol Tab) 325 mg BID PO 08/12/17 09:00 09/11/17 08:59 08/17/17 21:02 325 MG Nicotine (Nicoderm Cq 14MG Patch) 1 patch QAM TD 08/14/17 09:00 09/13/17 08:59 08/18/17 07:56 1 PATCH Miscellaneous (Remove Nicoderm Patch) 1 ea HS N/A 08/13/17 21:00 09/12/17 20:59 08/17/17 21:02 1 EA Lorazepam 0.5 mg/ Syringe 1 ml @ 1 mls/min Q4H PRN IV 08/15/17 07:30 09/14/17 07:29 08/15/17 11:34 1 MLS/MIN Aspirin (Aspirin Chew) 81 mg QAM PO 08/16/17 09:00 09/15/17 08:59 08/17/17 07:53 81 MG Enteral Nutritional Formula (Boost Plus Vanilla) 1 can BIDM PO 08/18/17 17:00 09/17/17 16:59 Gabapentin (Neurontin Cap) 100 mg BID PO 08/18/17 21:00 09/17/17 20:59 Impression 72 year old male with lethargy and confusion- improving Plan 1. EEG encephalopathy no seizure focus 2. MRI unremarkable for acute findings 3. folate, B12 for reversible causes- high normal 4. PT/OT for discharge needs 5. daughters input would be helpful but from report in chart it appears he was independent 6. suspect underlying dementia with superimposed delirium possibly from infection source doubt stop gabapentin is source since he came in with confusion 7. Sven appears to be improving will see him in our office after discharge from rehab. 2-3 weeks, D Loren Kebede or Loren Reynolds PAC schedule I have seen and discussed above patient with Dr Loren Kebede, neurology Pt seen, remains unchanged, no complaints, no headache. Rec he sees us in follow -up post dc with family to discuss hx, diagnosis of cognitive dysfunction THALIA Kebede MD
[2017-08-18] MEDS ORDERED: BOOST PLUS VANILLA PO SCH ×2 (17:00)
[2017-08-18] MEDS: GABAPENTIN 100 MG CAP PO SCH (20:07)
[2017-08-19 00:06] VITALS: BP 121/71; PULSE 97; TEMP 36.5; O2SAT 94
[2017-08-19] MEDS: THIAMINE HCL 100 MG TAB PO SCH (07:30)
[2017-08-19] MEDS: SERTRALINE HCL 50 MG TAB PO SCH (07:30)
[2017-08-19] MEDS: MAGNESIUM OXIDE 400 MG TAB PO SCH (07:30)
[2017-08-19] MEDS: RANITIDINE HCL 150 MG TAB PO SCH (07:30)
[2017-08-19] MEDS: CYANOCOBALAMIN 500 MCG TAB (VIT B-12) PO SCH (07:31)
[2017-08-19] MEDS: CLOPIDOGREL BISULFATE 75 MG TAB PO SCH (07:31)
[2017-08-19] MEDS: GABAPENTIN 100 MG CAP PO SCH (07:31)
[2017-08-19] MEDS: ATORVASTATIN 40 MG TAB PO SCH (07:31)
[2017-08-19] MEDS: NICOTINE 14 MG/24 HR TDSY TD SCH (07:31)
[2017-08-19] MEDS: FERROUS SULFATE 325 MG TAB PO SCH (07:31)
[2017-08-19] MEDS: ASPIRIN 81 MG CHEW PO SCH (07:31)
[2017-08-19 07:59] VITALS: BP 136/85; PULSE 88; TEMP 36.5; O2SAT 96
[2017-08-19 08:00] VITALS: O2SAT 96
[2017-08-19 10:25] LABS: CREATININE 0.81 mg/dl (0.60-1.40)
[2017-08-19 10:31] LABS: HEMATOCRIT 43.6 % (42-52); MEAN CELL VOLUME 98.2 fL (80-100); MEAN CORPUSCULAR HGB CONC 34.6 g/dl (32-36); MEAN PLATELET VOLUME 10.3 fL (7.4-10.4); PLATELET COUNT 311 K/uL (130-400); RED BLOOD COUNT 4.44 M/uL (4.7-6.1); WHITE BLOOD COUNT 8.15 K/uL (4.8-10.8)
[2017-08-19 10:40] LABS: INR 1.2 (0.9-1.1); PROTHROMBIN TIME (PATIENT) 13.3 SECONDS (9.0-12.0)
[2017-08-19] MEDS ORDERED: ENOXAPARIN 100 MG/1ML SYR SQ SCH (12:30)
[2017-08-19] MEDS ORDERED: CMD2 PO (13:07)
[2017-08-19] MEDS ORDERED: NICO14DI5 TD (13:07)
[2017-08-19] MEDS ORDERED: LVNIS100 SQ (13:07)
[2017-08-19] MEDS ORDERED: MULT-513 PO (13:07)
[2017-08-19] MEDS ORDERED: THIA50TA3 PO (13:07)
[2017-08-19] MEDS ORDERED: GABA1CAP PO (13:07)
--- NOTE | 2017-08-19 13:10 | Discharge Instructions ---
Discharge Instructions Date of Service Aug 19, 2017. Admission Reason for Admission: Sepsis, Uti Discharge Discharge Diagnosis / Problem: encephalopathy metabolic, dementia with delerium , DVT Discharge Goals Goal(s): Decrease discomfort, Improve function Activity Recommendations Activity Level: Assistance Required Therapies: Physical Therapy, Occupational Therapy . Additional Information Patient informed of condition: Yes Advance Directives: Yes DNR: Yes Level of Care: Acute Rehab Communicable Disease: No Prognosis: Stable Barrientos Catheter: No Instructions / Follow-Up Instructions / Follow-Up FOLLOWUP WITH FAMILY DOCTOR IN ONE WEEK LAB: PT/INR DAILY AND ADJUST COUMADIN DOSING. TO STOP LOVENOX SHOTS ONCE INR>2.0 Current Hospital Diet Patient's current hospital diet: Regular Diet Discharge Diet Recommended Diet: Regular Diet Pending Studies Studies pending at discharge: no Physician Orders On Transfer Special Precautions: FALL AND ASPIRATION PRECAUTIONS Vital Signs: EVERY 8HRS Medical Emergencies . Who to Call and When: Medical Emergencies: If at any time you feel your situation is an emergency, please call 911 immediately. . Non-Emergent Contact Non-Emergency issues call your: Primary Care Provider . . "Provider Documentation" section prepared by Chris Caputo. . Core Measure Problem Core Measures: None
[2017-08-19 13:47] VITALS: BP 136/85; PULSE 88; TEMP 36.5; O2SAT 96
--- NOTE | 2017-08-19 13:47 | Progress Note ---
Internal Med Progress Note Date of Service: Aug 19, 2017. Provider Documentation: SUBJECTIVE: RESTING COMFORTABLY EATING FINE NO PAIN AFEBRILE OK FOR REHAB TODAY OBJECTIVE: Vital Signs-as noted below Exam: General-alert and oriented x 2. Not in distress ENT-normal hearing Neck-no neck masses Lungs- cta b/l no wheezing or crackles Heart-s1 and s2 heard regular rate and rhythm no murmurs Abdomen-soft bowel sounds present no tenderness present no distension Extremities-no edema no erythema Neuro-alert and oriented x 2 moves extremities Lab data as noted below. ASSESSMENT & PLAN: 72-year-old male with past medical history significant for CAD status post CABG and stent placement, history of DVT, PE, no longer on Coumadin at home, COPD, hyperlipidemia, depression, history of alcohol abuse, malnutrition, history of [place], history of peripheral neuropathy, who was brought in by daughter because of confusion. Altered mental status with improvements encephalopathy metabolic? initially was started on iv abx but were stopped as no source of infection identified CT head, MRI head EEG unremarkable vitamin b12 and folate normal\Neurology following- mostly dementia with delirium continue to monitor stable Thromboembolism Bilateral DVTs on lower extremity ultrasound 08/12/17, V/Q scan on 08/12/17 shows 2 large perfusion defects within the basal segments of the right lower lobe, very suspicious for pulmonary embolus initially was on heparin later changed to Lovenox bridge and Coumadin inr 3.7 on 08/17/17 Coumadin held and Lovenox stopped INR >8.0 on 08/18/17 continue to hold Coumadin. Given a dose of vitamin k 2.5mg INR today 1.2 discharging on Lovenox bridge and Coumadin close f/u inr. Bilateral superficial femoral artery occlusion Bilateral infra popliteal artery occlusive disease asymptomatic seen by vascular surgery- no plan for intervention at this time History of myocardial infarction To continue home dual antiplatelets with aspirin and plavix. Continue statin History of Fall Risk pLAN FOR REHAB peripheral neuropathy will restart gabapentin at lower dose Nutrition dietary supplements with meals, replete electrolytes to treat hypokalemia or hypomagnesemia Code Status: DNR/DNI, next of kin is daughter Conchita Mckenna Disposition Plan for rehab today Vital Signs: Date Time Temp Pulse Resp B/P (MAP) Pulse Ox O2 Delivery O2 Flow Rate FiO2 08/19/17 08:00 96 Room Air 08/19/17 07:59 36.5 88 18 136/85 (102) 96 Room Air 08/19/17 00:08 Room Air 08/19/17 00:06 36.5 97 16 121/71 (88) 94 Room Air 08/18/17 20:00 Room Air 08/18/17 15:17 36.9 95 22 115/72 (86) 95 Room Air Lab Results: Results Past 24 Hours Test 08/19/17 09:00 08/19/17 10:09 Range/Units Creatinine 0.81 0.60-1.40 mg/dl Est Creatinine Clear Calc Drug Dose 80.1 ml/min Estimated GFR () 103.6 Estimated GFR (Non- 89.4 White Blood Count 8.15 4.8-10.8 K/uL Red Blood Count 4.44 4.7-6.1 M/uL Hemoglobin 15.1 14.0-18.0 g/dL Hematocrit 43.6 42-52 % Mean Corpuscular Volume 98.2 80-100 fL Mean Corpuscular Hemoglobin 34.0 25-34 pg Mean Corpuscular Hemoglobin Concent 34.6 32-36 g/dl RDW Standard Deviation 52.1 36.4-46.3 fL RDW Coefficient of Variation 14.5 11.5-14.5 % Platelet Count 311 130-400 K/uL Mean Platelet Volume 10.3 7.4-10.4 fL Prothrombin Time 13.3 9.0-12.0 SECONDS Prothromb Time International Ratio 1.2 0.9-1.1
--- NOTE | 2017-08-19 13:52 | Discharge Summary ---
Discharge Summary Date of Service Aug 19, 2017. Discharge Summary Admission Date: Aug 12, 2017 at 01:23 Discharge Date: Aug 19, 2017 Discharge Disposition: Rehab Principal Diagnosis: ENCEPHALOPATHY METABOLIC? DEMENTIA WITH DELIRIUM ACUTE DVT Secondary Diagnoses/Problems: for CAD status post CABG and stent placement, history of DVT, PE, no longer on Coumadin, COPD, hyperlipidemia, depression, history of alcohol abuse, malnutrition, history of ID, history of peripheral neuropathy, Procedures: CT HEAD: No acute intracranial abnormality. CXR: : Chronic and emphysematous change. No acute process. BILATERAL LOWER EXTREMITY ARTERIAL US: 1. Markedly abnormal bilateral lower extremity arterial Doppler ultrasound. Age indeterminate occlusion of the bilateral superficial femoral and popliteal arteries with only minimal monophasic flow identified within the proximal right anterior tibial, posterior tibial and peroneal arteries and the proximal left anterior tibial artery. Otherwise, no flow identified within the bilateral calf vessels which favors occlusion. 2. Bilateral occluded saccular popliteal artery aneurysms, right larger than left. 3. Patent bilateral common femoral arteries with triphasic flow. Findings suggestive of hemodynamically significant stenoses of the distal aspects of these vessels. 4. Age indeterminate nonocclusive thrombus within the right superficial femoral vein. LUNG SCAN: :Limited study without the ventilation portion of the study conducted. There are 2 large perfusion defects within the basal segments of the right lower lobe, very suspicious for pulmonary embolus. BRAIN MRI: Senescent changes as above with no acute intracranial abnormality. EEG: This EEG is consistent with a mild generalized nonspecific encephalopathy without lateralizing features and without clear cut potentially epileptogenic activity. The pattern is highly nonspecific and could correlate with any one on the number of toxic or metabolic encephalopathies. ECHO: Ejection Fraction = 50-55%. * There is a moderate sized wall motion abnormality involving the inferior and posterior badillo with hypokinesis to akinesis of the base and mid segements. * Aortic valve sclerosis mild, without significant aortic valvular stenosis. * Grade I diastolic dysfunction, (abnormal relaxation pattern). Consultations: NEUROLOGY VASCULAR SURGERY Medication Reconciliation New Medications: Gabapentin (Neurontin) 100 Mg Cap 1 CAP PO TID for 30 Days, #90 CAP 2 Refills Multivitamins/Minerals (Mvi With Minerals) Tab 1 TAB PO DAILY for 30 Days, TAB 2 Refills Thiamine Hcl (Vitamin B-1) 50 Mg Tab 50 MG PO DAILY for 30 Days, #30 TAB Enoxaparin (Enoxaparin Sodium) 100 Mg/Ml Inj 90 MG SQ DAILY for 7 Days until inr therapeutic Nicotine (Nicoderm Cq 14MG Patch) 14 Mg/24 Hr Dis 1 PATCH TD QAM for 21 Days Warfarin Sod (Coumadin) 2 Mg Tab 2 MG PO DAILY@16 for 30 Days, TAB 1 Refill Continued Medications: Acetaminophen (Tylenol) 325 Mg Tab 650 MG PO Q6 PRN for Pain or Fever, TAB Aspirin (Aspirin Ec) 81 Mg Tab 81 MG PO DAILY Atorvastatin (Lipitor) 80 Mg Tab 80 MG PO DAILY, TAB Calcium/Vitamin D (Os-Lowell 500 Plus D) Tab 1 TAB PO BID, TAB Clopidogrel (Plavix) 75 Mg Tab 75 MG PO DAILY, TAB Cyanocobalamin (Vitamin B-12) 1,000 Mcg Tab 1000 MCG PO DAILY, TAB Enalapril (Vasotec) 5 Mg Tab 5 MG PO DAILY, TAB Ferrous Sulfate (Kp Ferrous Sulfate) 325 Mg Tab 325 TAB PO BID Folic Acid (Folvite) 1 Mg Tab 1 MG PO DAILY, TAB Magnesium Hydroxide (Milk of Magnesia) 30 Ml Susp 30 ML PO DAILY PRN for Constipation Magnesium Oxide (Mag-Ox) 400 Mg Tab 400 MG PO BID, TAB Nutritional Supplements (Boost) 1 Liq Liq 1 CAN PO BID Ranitidine (Zantac) 150 Mg Tab 150 MG PO DAILY, TAB Sertraline (Zoloft) 50 Mg Tab 50 MG PO DAILY, TAB Discontinued Medications: Gabapentin (Neurontin) 400 Mg Cap 400 MG PO TID, CAP Mirtazapine (Mirtazapine) 15 Mg Tab 15 MG PO HS Thiamine Hcl (Vitamin B-1) 100 Mg Tab 100 MG PO DAILY, TAB Admission Information HPI (per Admitting provider): This is a 72-year-old male with past medical history significant for CAD status post CABG and stent placement, history of DVT, PE, no longer on Coumadin, COPD, hyperlipidemia, depression, history of alcohol abuse, malnutrition, history of ID, history of peripheral neuropathy, who was brought in by daughter because of confusion. The patient lives alone. He was in the hospital for ID in November of this year with in-stent thrombosis and was discharged to [facility] . Currently living alone in his house.As per daughter regarding confusion/dementia he is doing fine except that he is confused during illness, but otherwise, he is doing okay. About a week ago, he was taking care of himself, was paying his bills. Ambulatory status is okay. Daughter is visiting him once or twice a week. When she went to see him this Wednesday, he seemed somewhat disoriented. He had some emesis in his bathroom and she cleaned the emesis and she cleaned his bed and when asked he declined any complaints of any pain, he does not seem to be eating or taking his pills. Daughter arranged his food and pills and left and sent her daughter to see him the next day and the granddaughter told that the patient seems somewhat better. Today, again the daughter went to see him. She felt like he never moved from the chair. It seemed that he never laid on the bed or used the bathroom. It looks like he was not eating and drinking and seemed more disoriented than before. She tried to get him up from the chair, but she could not do .She also noticed some purple discoloration of his toes on Wednesday and thought making appointment with his doctor. Anyway she called EMS and he was brought in to the hospital. Currently, the patient is somewhat drowsy, but arousable, can say his name, but not answering any other questions. He seemed confused . The patient denies any pain or any other complaints. When aroused, he opens his eyes, but he goes back to sleep. Physical Exam (per Admitting): GENERAL: The patient is of moderate built, confused. VITAL SIGNS: T-max 37.7, pulse 113, respiratory rate 18, blood pressure 110/67, oxygen 94% on 2 liters. HEENT: No pallor, no icterus. NECK: No JVD, no neck masses. Oral mucosa dry. CARDIOVASCULAR SYSTEM: S1, S2 heard, regular, tachycardia. No murmurs. RESPIRATORY SYSTEM: Normal AP diameter. No accessory muscle use. No wheezing, no crackles. ABDOMEN: Soft, bowel sounds present. Nontender. No distention. CENTRAL NERVOUS SYSTEM: Confused, oriented to name only. Moves extremities. EXTREMITIES: Somewhat purplish discoloration of the toes on both the legs, cold to touch. No edema seen.No tenderness Hospital Course 72-year-old male with past medical history significant for CAD status post CABG and stent placement, history of DVT, PE, no longer on Coumadin at home, COPD, hyperlipidemia, depression, history of alcohol abuse, malnutrition, history of ID, history of peripheral neuropathy, who was brought in by daughter because of confusion. Altered mental status with improvements encephalopathy metabolic? initially was started on iv abx but were stopped as no source of infection identified CT head, MRI head EEG unremarkable vitamin b12 and folate normal\\Neurology following- mostly dementia with delirium continue to monitor stable Thromboembolism Bilateral DVTs on lower extremity ultrasound 08/12/17, V/Q scan on 08/12/17 shows 2 large perfusion defects within the basal segments of the right lower lobe, very suspicious for pulmonary embolus initially was on heparin later changed to Lovenox bridge and Coumadin inr 3.7 on 08/17/17 Coumadin held and Lovenox stopped INR >8.0 on 08/18/17 continue to hold Coumadin. Given a dose of vitamin k 2.5mg INR today 1.2 discharging on Lovenox bridge and Coumadin close f/u inr. Bilateral superficial femoral artery occlusion Bilateral infra popliteal artery occlusive disease asymptomatic seen by vascular surgery- no plan for intervention at this time History of myocardial infarction To continue home dual antiplatelets with aspirin and plavix. Continue statin History of Fall Risk pLAN FOR REHAB peripheral neuropathy will restart gabapentin at lower dose Nutrition dietary supplements with meals, replete electrolytes to treat hypokalemia or hypomagnesemia Code Status: DNR/DNI, next of kin is daughter Conchita Mckenna Disposition Plan for rehab today Total time spent on discharge = 40MINUTES This includes examination of the patient, discharge planning, medication reconciliation, and communication with other providers. Discharge Instructions Discharge Instructions Date of Service Aug 19, 2017. Admission Reason for Admission: Sepsis, Uti Discharge Discharge Diagnosis / Problem: encephalopathy metabolic, dementia with delerium , DVT Discharge Goals Goal(s): Decrease discomfort, Improve function Activity Recommendations Activity Level: Assistance Required Therapies: Physical Therapy, Occupational Therapy . Additional Information Patient informed of condition: Yes Advance Directives: Yes DNR: Yes Level of Care: Acute Rehab Communicable Disease: No Prognosis: Stable Barrientos Catheter: No Instructions / Follow-Up Instructions / Follow-Up FOLLOWUP WITH FAMILY DOCTOR IN ONE WEEK LAB: PT/INR DAILY AND ADJUST COUMADIN DOSING. TO STOP LOVENOX SHOTS ONCE INR>2.0 Current Hospital Diet Patient's current hospital diet: Regular Diet Discharge Diet Recommended Diet: Regular Diet Pending Studies Studies pending at discharge: no Physician Orders On Transfer Special Precautions: FALL AND ASPIRATION PRECAUTIONS Vital Signs: EVERY 8HRS Medical Emergencies . Who to Call and When: Medical Emergencies: If at any time you feel your situation is an emergency, please call 911 immediately. . Non-Emergent Contact Non-Emergency issues call your: Primary Care Provider . . "Provider Documentation" section prepared by Chris Caputo. . Core Measure Problem Core Measures: None
[2017-08-19] MEDS ORDERED: WARFARIN SOD 2 MG TAB PO SCH (16:00)
== END 2017-08-19 16:45 | DRG 70 ==
LOC: EDBD 20:43 → C.EDB 20:44 → C.2T 08-12 01:23 → ENRESERV 08-12 01:43 → C.MS2W 08-14 15:52
PROVIDERS: ADMIT Hospitalist; ATTEND Internal Medicine
DX: G93.41 Metabolic encephalopathy (principal); I26.99 Other pulmonary embolism without acute cor pulmonale; I82.413 Acute embolism and thrombosis of femoral vein, bilateral; I82.433 Acute embolism and thrombosis of popliteal vein, bilateral; E46 Unspecified protein-calorie malnutrition; R64 Cachexia; F05 Delirium due to known physiological condition; N17.9 Acute kidney failure, unspecified; E86.0 Dehydration; R33.9 Retention of urine, unspecified; R53.83 Other fatigue; I25.10 Atherosclerotic heart disease of native coronary artery without angina pectoris; J44.9 Chronic obstructive pulmonary disease, unspecified; E78.5 Hyperlipidemia, unspecified; G62.9 Polyneuropathy, unspecified; R13.10 Dysphagia, unspecified; K22.2 Esophageal obstruction; F10.11 Alcohol abuse, in remission; F17.210 Nicotine dependence, cigarettes, uncomplicated; F32.9 Major depressive disorder, single episode, unspecified; F03.90 Unspecified dementia, unspecified severity, without behavioral disturbance, psychotic disturbance, mood disturbance, and anxiety; I25.2 Old myocardial infarction; Z66 Do not resuscitate; Z23 Encounter for immunization; Z68.20 Body mass index [BMI] 20.0-20.9, adult; Z95.1 Presence of aortocoronary bypass graft; Z95.5 Presence of coronary angioplasty implant and graft; Z86.711 Personal history of pulmonary embolism; Z91.81 History of falling; Z79.82 Long term (current) use of aspirin; Z79.02 Long term (current) use of antithrombotics/antiplatelets; Z79.899 Other long term (current) drug therapy

== ENCOUNTER 2017-09-16 11:48 | Inpatient (IN) | payer OTHER ==
[~2017-09-16] VITALS: Ht 182.9 cm; Wt 66.2 kg
[~2017-09-16 11:48] MED LIST changes: +ASPI81TA28 PO; +ATOR-26 PO; -CLCUDL PO; +CMD2 PO; +ENAL5TAB83 PO; -Enteral Nutrition Formula PO; -FOLI1TAB7 PO; +FOLI1TAB8 PO; +GABA100C13 PO; -GABA1CAP5 PO; -LPT40 PO; +LVNIS100 SQ; -METO25TA3 PO; +MULT-513 PO; +NICO14DI5 TD; +NUTR-7 PO; +RANI150T85 PO; -RMR15 PO; +THIA50TA3 PO; -THM100 PO; -VST5 PO; -ZNTT/150 PO
[2017-09-16] MEDS ORDERED: SODIUM CHLORIDE 0.9% 500ML 500 ML IV STA (12:19)
[2017-09-16] MEDS ORDERED: GABA-112 PO (12:37)
[2017-09-16] MEDS ORDERED: MULT-513 PO (12:37)
[2017-09-16] MEDS ORDERED: THIA50TA3 PO (12:37)
[2017-09-16] MEDS ORDERED: WARF2TAB8 PO (12:37)
--- NOTE | 2017-09-16 12:54 | EMERGENCY ROOM VISIT NOTE ---
History Report prepared by Emily: Ajit Xie Under the Supervision of: Dr. Emory Pascual M.D. First contact with patient: 12:13 Chief Complaint: SWELLING TO EXTREMITY Stated Complaint: SWOLLEN/RED FEET, BLACK TOES-ULCERATIVE WOUND History of Present Illness The patient is a 72 year old male who presents to the Emergency Room with complaints of pain in his feet and that it is becoming more difficult to walk. His feet are more swollen and red compared to baseline. The patient denies abdominal pain, chest pain, bloody black stools, fevers, and chills. Per his daughter, he does not have DM. He does have a history of regular tobacco use (5 cigarettes every day for 60 years). Of note, the patient has a history of heart attacks and blood clots in his heart and lungs and is on Coumadin. The patient was recently in rehabilitation and left 2 weeks ago and has been steadily declining. Source of History: patient, family Onset: 2 weeks ago Position: foot (bilateral), toe(s) Quality: other (pain) Timing: constant Modifying Factors (Worsening): exertion, other (walking on his feet) Associated Symptoms: No fevers, No chills, No chest pain, No abdominal pain , No melena Review of Systems See HPI for pertinent positives & negatives. A total of 10 systems reviewed and were otherwise negative. Past Medical & Surgical Medical Problems: (1) Alcohol use disorder (2) CAD (coronary artery disease) of bypass graft (3) Closed fracture of proximal end of left humerus (4) COPD (chronic obstructive pulmonary disease) (5) Depression (6) DVT (deep venous thrombosis) (7) History of alcohol abuse (8) Hypercholesteremia (9) Hyperlipidemia (10) Hypotension (11) Malnutrition (12) AL (myocardial infarction) (13) PE (pulmonary embolism) (14) Peripheral neuropathy (15) Sepsis (16) UTI (urinary tract infection) (17) Warfarin anticoagulation Surgical Problems: (1) H/o neuroma removed from foot (2) History of carpal tunnel surgery (3) Hx of CABG (4) S/P coronary artery stent placement Family History Patient reports no known family medical history. Social History Smoking Status: Current Every Day Smoker Drug Use: none Marital Status: single Housing Status: lives alone Occupation Status: retired Current/Historical Medications Scheduled Aspirin (Aspirin Ec), 81 MG PO DAILY Atorvastatin (Lipitor), 80 MG PO DAILY Calcium/Vitamin D (Os-Lowell 500 Plus D), 1 TAB PO BID Clopidogrel (Plavix), 75 MG PO DAILY Cyanocobalamin (Vitamin B-12), 1,000 MCG PO DAILY Enalapril (Vasotec), 5 MG PO DAILY Ferrous Sulfate (Kp Ferrous Sulfate), 325 TAB PO BID Folic Acid (Folvite), 1 MG PO DAILY Gabapentin (Neurontin), 100 MG PO TID Magnesium Oxide (Mag-Ox), 400 MG PO BID Multivitamins/Minerals (Mvi With Minerals), 1 TAB PO DAILY Nutritional Supplements (Boost), 1 CAN PO BID Ranitidine (Zantac), 150 MG PO DAILY Sertraline (Zoloft), 50 MG PO DAILY Thiamine Hcl (Vitamin B-1), 50 MG PO DAILY Warfarin Sod (Jantoven), 2 MG PO DAILY@1600 Scheduled PRN Acetaminophen (Tylenol), 650 MG PO Q6 PRN for Pain or Fever Magnesium Hydroxide (Milk of Magnesia), 30 ML PO DAILY PRN for Constipation Allergies Coded Allergies: No Known Allergies (Unverified , 09/16/17) Physical Exam Vital Signs Date Time Temp Pulse Resp B/P (MAP) Pulse Ox O2 Delivery O2 Flow Rate FiO2 09/16/17 14:26 66 15 99 09/16/17 14:21 64 17 99 09/16/17 14:16 70 23 100 09/16/17 14:14 36.6 18 107/69 91 Room Air 09/16/17 14:11 67 20 98 09/16/17 14:06 67 15 95 09/16/17 14:01 71 13 96 09/16/17 13:56 62 12 99 09/16/17 13:51 65 17 97 09/16/17 13:46 68 20 93 09/16/17 13:41 60 15 99 09/16/17 13:36 63 16 99 09/16/17 13:31 65 15 100 09/16/17 13:26 57 18 100 09/16/17 13:21 63 18 99 09/16/17 13:16 64 20 100 09/16/17 13:11 61 14 99 09/16/17 13:06 64 7 98 09/16/17 13:01 69 14 98 12/7/17 12:56 62 7 98 09/16/17 12:51 72 20 97 09/16/17 12:46 65 24 97 09/16/17 12:41 64 13 97 09/16/17 12:36 64 12 92 09/16/17 12:31 64 20 91 09/16/17 12:26 70 9 99 09/16/17 12:22 65 09/16/17 12:21 65 18 97 09/16/17 12:16 72 107/69 91 Room Air 09/16/17 12:06 36.6 83 18 62/40 91 Room Air Physical Exam GENERAL: Patient is chronically unwell appearing, tired appearing, dehydrated appearing, and in mild distress. HEENT: No acute trauma, normocephalic atraumatic, mucous membranes moist, no nasal congestion, no scleral icterus. Pale conjunctiva, dry mucous membranes. NECK: No stridor, no adenopathy, no meningismus, trachea is midline. LUNGS: No dyspnea. Clear to auscultation and equal bilaterally. No wheeze, no rhonchi. HEART: Regular rate and rhythm. No murmurs, rubs, gallops appreciated. ABDOMEN: Soft, nontender, bowel sounds positive, no masses appreciated, no peritonitis. BACK: No midline tenderness, no CVA tenderness EXTREMITIES: Normal motion all extremities, no cyanosis, and no edema. Blacked left great toe. Large ulcer over top of left great toe. Erythema extending over top of foot toward ankle with warmth bilaterally. Tip of right great toe blackened. Faint pulses over posterior ankles bilaterally. NEUROLOGIC: Alert and oriented, no acute motor or sensory deficits, no focal weakness, cranial nerves grossly intact. SKIN: No rash, no jaundice, no diaphoresis. Medical Decision & Procedures ER Provider Diagnostic Interpretation: CHEST ONE VIEW PORTABLE CLINICAL HISTORY: fever dyspnea COMPARISON STUDY: 08/11/2017 FINDINGS: Prior median sternotomy. Lungs are clear. Diaphragms are smooth. No focal infiltrate. IMPRESSION: No acute process. The above report was generated using voice recognition software. It may contain grammatical, syntax or spelling errors. Electronically signed by: Abhinav Reyna M.D. 09/16/2017 1:10 PM L TOE(S) MIN 2 VIEWS CLINICAL HISTORY: left great toe black COMPARISON: None. DISCUSSION: The bones and joint spaces appear intact. There is no evidence of fracture, dislocation or bony disease. There is no evidence for soft tissue swelling. IMPRESSION: Negative study. The above report was generated using voice recognition software. It may contain grammatical, syntax or spelling errors. Electronically signed by: Abhinav Reyna M.D. 09/16/2017 1:12 PM RIGHT FIRST TOE 3 VIEWS CLINICAL HISTORY: First toe discoloration. FINDINGS: 3 views of the right first toe are obtained. No prior studies are available for comparison at the time of dictation. The skeletal structures are osteopenic. No fracture is seen. No bony erosion or periostitis is identified. Mild arthritic change is present at the first metatarsophalangeal and interphalangeal joints. Soft tissue swelling is suggested in the first toe. No radiodense foreign body or subcutaneous gas is seen. There is atherosclerotic calcification of the regional arteries. The second and third toes are normal as visualized. IMPRESSION: No acute bony abnormality is seen in the right first toe. Electronically signed by: Ricardo Eric M.D. 09/16/2017 1:13 PM Laboratory Results 09/16/17 12:40 Red Blood Count 3.94, Mean Corpuscular Volume 93.7, Mean Corpuscular Hemoglobin 32.7, Mean Corpuscular Hemoglobin Concent 35.0, Mean Platelet Volume 9.4, Neutrophils (%) (Auto) 70.1, Lymphocytes (%) (Auto) 19.7, Monocytes (%) (Auto) 7.2, Eosinophils (%) (Auto) 2.5, Basophils (%) (Auto) 0.3, Neutrophils # (Auto) 7.15, Lymphocytes # (Auto) 2.01, Monocytes # (Auto) 0.74, Eosinophils # (Auto) 0.26, Basophils # (Auto) 0.03 09/16/17 12:40 09/16/17 14:01 Test 09/16/17 00:00 09/16/17 12:40 09/16/17 12:48 09/16/17 12:52 Urine Color YELLOW Urine Appearance CLEAR (CLEAR) Urine pH 8.0 (4.5-7.5) Urine Specific [place] 1.007 (1.000-1.030) Urine Protein NEG (NEG) Urine Glucose (UA) NEG (NEG) Urine Ketones NEG (NEG) Urine Occult Blood NEG (NEG) Urine Nitrite NEG (NEG) Urine Bilirubin NEG (NEG) Urine Urobilinogen NEG (NEG) Urine Leukocyte Esterase NEG (NEG) Urine WBC (Auto) 0 /hpf (0-5) Urine RBC (Auto) 0-4 /hpf (0-4) Urine Hyaline Casts (Auto) 0 /lpf (0-5) Urine Epithelial Cells (Auto) 0-5 /lpf (0-5) Urine Bacteria (Auto) NEG (NEG) White Blood Count 10.21 K/uL (4.8-10.8) Red Blood Count 3.94 M/uL (4.7-6.1) Hemoglobin 12.9 g/dL (14.0-18.0) Hematocrit 36.9 % (42-52) Mean Corpuscular Volume 93.7 fL (80-100) Mean Corpuscular Hemoglobin 32.7 pg (25-34) Mean Corpuscular Hemoglobin Concent 35.0 g/dl (32-36) Platelet Count 295 K/uL (130-400) Mean Platelet Volume 9.4 fL (7.4-10.4) Neutrophils (%) (Auto) 70.1 % Lymphocytes (%) (Auto) 19.7 % Monocytes (%) (Auto) 7.2 % Eosinophils (%) (Auto) 2.5 % Basophils (%) (Auto) 0.3 % Neutrophils # (Auto) 7.15 K/uL (1.4-6.5) Lymphocytes # (Auto) 2.01 K/uL (1.2-3.4) Monocytes # (Auto) 0.74 K/uL (0.11-0.59) Eosinophils # (Auto) 0.26 K/uL (0-0.5) Basophils # (Auto) 0.03 K/uL (0-0.2) RDW Standard Deviation 48.6 fL (36.4-46.3) RDW Coefficient of Variation 14.2 % (11.5-14.5) Immature Granulocyte % (Auto) 0.2 % Immature Granulocyte # (Auto) 0.02 K/uL (0.00-0.02) Est Creatinine Clear Calc Drug Dose 63.1 ml/min Estimated GFR () 86.3 Estimated GFR (Non- 74.5 BUN/Creatinine Ratio 6.1 (10-20) Calcium Level 9.0 mg/dl (8.5-10.1) Total Bilirubin 0.7 mg/dl (0.2-1) Alanine Aminotransferase (ALT/SGPT) 20 U/L (12-78) Alkaline Phosphatase 99 U/L (45-117) Creatine Kinase MB < 0.5 ng/ml (0.5-3.6) Creatine Kinase MB Ratio (0-3.0) Troponin I < 0.015 ng/ml (0-0.045) Total Protein 8.0 gm/dl (6.4-8.2) Albumin 2.6 gm/dl (3.4-5.0) Bedside Lactic Acid Venous 2.09 mmol/L (0.90-1.70) Bedside Hemoglobin 13.6 g/dl (14.0-18.0) Bedside Hematocrit 40 % (42-52) Bedside Sodium 127 mEq/L (135-144) Bedside Potassium 4.8 mEq/L (3.3-5.0) Bedside Chloride 89 mEq/L (101-112) Bedside Total CO2 28 mEq/l (24-31) Anion Gap 16.0 mmol/L (16-25) Bedside Blood Urea Nitrogen 6 mg/dl (7-18) Bedside Creatinine 1.0 mg/dl (0.6-1.3) Bedside Glucose (other) 99 mg/dl (70-99) Bedside Ionized Calcium (Leslie) 1.06 mmol/l (1.12-1.32) Test 09/16/17 14:01 Magnesium Level 1.8 mg/dl (1.8-2.4) Direct Bilirubin 0.2 mg/dl (0-0.2) Aspartate Amino Transf (AST/SGOT) 21 U/L (15-37) Total Creatine Kinase 64 U/L (39-308) Laboratory results as reviewed by me. Medications Administered Medications (Trade) Dose Ordered Sig/Nieves Route Start Time Stop Time Status Last Admin Dose Admin Sodium Chloride 500 ml @ 999 mls/hr Q31M STAT IV 09/16/17 12:19 09/16/17 12:50 DC 09/16/17 12:30 999 MLS/HR Piperacillin Sod/ Tazobactam Sod (Zosyn Iv) 4.5 gm NOW STAT IV 09/16/17 13:31 09/16/17 13:32 DC 09/16/17 15:07 4.5 GM Vancomycin HCl 1500 mg/Sodium Chloride 530 ml @ 200 mls/hr ONE STAT IV 09/16/17 13:31 09/16/17 16:09 DC 09/16/17 16:17 200 MLS/HR ED Course 1249: I checked on the patient and he is feeling better. 1331: I checked in with the patient and he is much improved and denies any current symptoms. His blood pressure has improved and his heart rate is normal. We discussed admission and IV antibiotics and he agrees with the management plan. 1353: I spoke with MATEO Sawyer about plan management. Medical Decision Differential: Sepsis, Infectious (UTI/Pneumonia/Meningitis/etc), Metabolic/ Electrolyte Abnormality, Cardiac, Hepatic, Endocrine, Toxicologic, Neurologic, amongst other pathologies entertained. 72 yr old male arrives severely ill appearing, hypotensive, pale and near- syncopal. Laying in bed, IV with fluids and BP responded quickly as did his exam with him in short order looking much improved with good color and BP. As complex history, afebrile, normal WBC, and only mild Lactic acid elevation I feel that doing full 30ml/kg NSS may do more harm than good. Frequent BP checks stable and patient feeling much better. He has ischemic bilateral great toes with cellulitis developing. With infection will presume hypotension secondary to sepsis, thus blood cultures and empiric abx, though he is not in fulminant shock. It may also be that hypotension is more secondary to dehydration/malnutrition, especially given Na findings. Regardless will require close monitoring and coming in to hospital. Blood Pressure Screening Patient's blood pressure: Low blood pressure Impression Primary Impression: Hypotension Additional Impressions: Sepsis Hyponatremia Scribe Attestation The scribe's documentation has been prepared under my direction and personally reviewed by me in its entirety. I confirm that the note above accurately reflects all work, treatment, procedures, and medical decision making performed by me. Departure Information Referrals Raysa Jain M.D. (PCP) Patient Instructions [facility] Problem Qualifiers
[2017-09-16 13:04] LABS: ISTAT IONIZED CALCIUM 1.06 mmol/l (1.12-1.32); ISTAT POTASSIUM 4.8 mEq/L (3.3-5.0)
--- NOTE | 2017-09-16 13:11 | DIAGNOSTIC IMAGING REPORT ---
CHEST ONE VIEW PORTABLE CLINICAL HISTORY: fever dyspnea COMPARISON STUDY: 08/11/2017 FINDINGS: Prior median sternotomy. Lungs are clear. Diaphragms are smooth. No focal infiltrate. IMPRESSION: No acute process. The above report was generated using voice recognition software. It may contain grammatical, syntax or spelling errors. Electronically signed by: Abhinav Reyna M.D. 09/16/2017 1:10 PM Dictated Date/Time: 09/16/2017 1:09 PM
--- NOTE | 2017-09-16 13:13 | DIAGNOSTIC IMAGING REPORT ---
L TOE(S) MIN 2 VIEWS CLINICAL HISTORY: left great toe black COMPARISON: None. DISCUSSION: The bones and joint spaces appear intact. There is no evidence of fracture, dislocation or bony disease. There is no evidence for soft tissue swelling. IMPRESSION: Negative study. The above report was generated using voice recognition software. It may contain grammatical, syntax or spelling errors. Electronically signed by: Abhinav Reyna M.D. 09/16/2017 1:12 PM Dictated Date/Time: 09/16/2017 1:11 PM
--- NOTE | 2017-09-16 13:14 | DIAGNOSTIC IMAGING REPORT ---
RIGHT FIRST TOE 3 VIEWS CLINICAL HISTORY: First toe discoloration. FINDINGS: 3 views of the right first toe are obtained. No prior studies are available for comparison at the time of dictation. The skeletal structures are osteopenic. No fracture is seen. No bony erosion or periostitis is identified. Mild arthritic change is present at the first metatarsophalangeal and interphalangeal joints. Soft tissue swelling is suggested in the first toe. No radiodense foreign body or subcutaneous gas is seen. There is atherosclerotic calcification of the regional arteries. The second and third toes are normal as visualized. IMPRESSION: No acute bony abnormality is seen in the right first toe. Electronically signed by: Ricardo Eric M.D. 09/16/2017 1:13 PM Dictated Date/Time: 09/16/2017 1:11 PM
[2017-09-16] MEDS ORDERED: PIPERACILLIN/TAZOBACTAM 4.5 GM/100ML D5W IV STA (13:31)
[2017-09-16] MEDS ORDERED: VANCOMYCIN INJ 1,500 MG in SODIUM CHLORIDE 0.9% 500ML 500 ML IV STA (13:31)
[2017-09-16 13:37] LABS: BASO % 0.3 %; BASO ABS # 0.03 K/uL (0-0.2); EOS % 2.5 %; EOS ABS # 0.26 K/uL (0-0.5); HEMATOCRIT 36.9 % (42-52); HEMOGLOBIN 12.9 g/dL (14.0-18.0); IG# 0.02 K/uL (0.00-0.02); LYMPH % 19.7 %; LYMPH ABS # 2.01 K/uL (1.2-3.4); MEAN CELL VOLUME 93.7 fL (80-100); MEAN CORPUSCULAR HEMOGLOBIN 32.7 pg (25-34); MEAN PLATELET VOLUME 9.4 fL (7.4-10.4); MONO % 7.2 %; MONO ABS # 0.74 K/uL (0.11-0.59); NEUT % 70.1 %; NEUT ABS # 7.15 K/uL (1.4-6.5); PLATELET COUNT 295 K/uL (130-400); RED CELL DISTRIBUTION WIDTH CV 14.2 % (11.5-14.5); RED CELL DISTRIBUTION WIDTH SD 48.6 fL (36.4-46.3); WHITE BLOOD COUNT 10.21 K/uL (4.8-10.8)
[2017-09-16 13:48] LABS: ALBUMIN 2.6 gm/dl (3.4-5.0); ALKALINE PHOSPHATASE 99 U/L (45-117); ALT/SGPT 20 U/L (12-78); BLOOD UREA NITROGEN 6 mg/dl (7-18); CARBON DIOXIDE 25 mmol/L (21-32); CKMB < 0.5 ng/ml (0.5-3.6); CREATININE 1.01 mg/dl (0.60-1.40); GLUCOSE 89 mg/dl (70-99); SODIUM 124 mmol/L (136-145)
[2017-09-16 14:14] VITALS: BP 107/69; TEMP 36.6; O2SAT 91; Ht 182.9 cm; Wt 66.2 kg
[2017-09-16 14:29] LABS: POTASSIUM 4.1 mmol/L (3.5-5.1)
[2017-09-16] MEDS ORDERED: ONDANSETRON INJ 2 MG/ML 2 ML VIAL IV PRN (14:30)
[2017-09-16] MEDS ORDERED: PIPERACILL/TAZOBAC CONSULT ACTIVE PRN (15:00)
[2017-09-16] MEDS ORDERED: VANCOMYCIN CONSULT ACTIVE PRN (15:00)
--- NOTE | 2017-09-16 15:25 | Pharmacy Progress Note ---
Pharmacy Abx Initial Consult Date of Service Sep 16, 2017. Pharmacy Dosing Scope Date of Consult: 09/16/17 Consultation requested by: MATEO Sawyer Pharmacy is consulted to initiate Vancomycin/Zosyn IV dosing therapy, order appropriate labs and adjust drug dose/frequency. Subjective The patient is a 72 year old male admitted on 09/16/17 with red swollen feet/ black toes. Objective Height (Feet): 6 Height (Inches): 0.00 Weight (Kilograms): 66.500 Vital Signs (Past 12Hrs) Vital Signs Past 12 Hours Date Time Temp Pulse Resp B/P (MAP) Pulse Ox O2 Delivery O2 Flow Rate FiO2 09/16/17 14:14 36.6 18 107/69 91 Room Air 09/16/17 12:22 65 09/16/17 12:16 72 107/69 91 Room Air 09/16/17 12:06 36.6 83 18 62/40 91 Room Air Lab Results (24Hrs) Laboratory Tests (24 Hours) Test 09/16/17 12:40 09/16/17 14:01 White Blood Count 10.21 K/uL (4.8-10.8) Red Blood Count 3.94 M/uL (4.7-6.1) L Hemoglobin 12.9 g/dL (14.0-18.0) L Hematocrit 36.9 % (42-52) L Mean Corpuscular Volume 93.7 fL (80-100) Mean Corpuscular Hemoglobin 32.7 pg (25-34) Mean Corpuscular Hemoglobin Concent 35.0 g/dl (32-36) Platelet Count 295 K/uL (130-400) Mean Platelet Volume 9.4 fL (7.4-10.4) Neutrophils (%) (Auto) 70.1 % Lymphocytes (%) (Auto) 19.7 % Monocytes (%) (Auto) 7.2 % Eosinophils (%) (Auto) 2.5 % Basophils (%) (Auto) 0.3 % Neutrophils # (Auto) 7.15 K/uL (1.4-6.5) H Lymphocytes # (Auto) 2.01 K/uL (1.2-3.4) Monocytes # (Auto) 0.74 K/uL (0.11-0.59) H Eosinophils # (Auto) 0.26 K/uL (0-0.5) Basophils # (Auto) 0.03 K/uL (0-0.2) Total Creatine Kinase 64 U/L (39-308) Micro Results Date/Time Source Procedure Growth Status 09/16/17 12:40 Blood Blood Culture Pending Received 09/16/17 12:30 Blood Blood Culture Pending Received Risk Factors for Resistance * Hospitalization for 48 hours or more within the past 90 days * Recently discharged from rehab 2 weeks ago * Antimicrobial use within the last 90 days Assessment & Plan Assessment 72 year old male initiated on Vancomycin/Zosyn IV for infected ulcer (red feet/ black toes noted in ER note). Blood cultures pending. Plan Vancomycin IV * Loading dose: 1500 mg (23 mg/kg) * Maintenance dose: 1000 mg IV (15 mg/kg) every 12 hours * Goal trough level for infected ulcer: ~15 mcg/mL * Trough level ordered for 09/18/17 @0330 prior to the 0400 dose. This is slightly early - may need to adjust dose down. * This maintenance dose was selected based on patient's baseline Scr 0.8-0.9 mg/ dL (assuming patient will trend better in the AM) * If this does not occur - likely would change frequency to q14h Piperacillin/tazobactam * 4.5 g bolus administered over 30 minutes, then 3.375 g IV extended infusion every 8 hours for CrCl greater than 20 mL/min Pharmacy will continue to follow and will adjust dose/frequency as necessary. Thank you.
[2017-09-16 16:31] VITALS: BP 151/74; PULSE 67; TEMP 36.5; O2SAT 95
[2017-09-16] MEDS: SODIUM CHLORIDE 0.9% 1000ML 1,000 ML IV SCH (16:38)
[2017-09-16 17:54] LABS: INR 1.7 (0.9-1.1)
[2017-09-16] MEDS ORDERED: HEPARIN IV LOW DOSE NO BOLUS SCH (18:45)
[2017-09-16 19:04] LABS: BASO % 0.2 %; BASO ABS # 0.02 K/uL (0-0.2); EOS % 2.6 %; EOS ABS # 0.25 K/uL (0-0.5); HEMOGLOBIN 11.1 g/dL (14.0-18.0); IG# 0.03 K/uL (0.00-0.02); LYMPH % 12.1 %; LYMPH ABS # 1.16 K/uL (1.2-3.4); MEAN CELL VOLUME 92.8 fL (80-100); MEAN CORPUSCULAR HEMOGLOBIN 32.2 pg (25-34); MEAN PLATELET VOLUME 9.5 fL (7.4-10.4); MONO % 6.5 %; MONO ABS # 0.62 K/uL (0.11-0.59); NEUT % 78.3 %; NEUT ABS # 7.52 K/uL (1.4-6.5); PLATELET COUNT 244 K/uL (130-400); RED CELL DISTRIBUTION WIDTH CV 14.3 % (11.5-14.5); RED CELL DISTRIBUTION WIDTH SD 48.6 fL (36.4-46.3)
[2017-09-16 19:13] LABS: INR 1.8 (0.9-1.1); MEAN CORPUSCULAR HGB CONC 34.7 g/dl (32-36); PTT PATIENT 38.7 SECONDS (21.0-31.0)
--- NOTE | 2017-09-16 19:30 | History and Physical ---
History & Physical Date & Time of Service: Sep 16, 2017 at 18:24 Chief Complaint: BL Foot Pain, Left Toe Wound Primary Care Physician: Prem Stuart D.O. History of Present Illness 72 year old male who presented to the ED with BL foot pain and left toe wound. Patient was recently admitted to [facility] 08/12 - 08/19. He was found to have DVT, PE , and fairly severe PAD. Patient was started on Coumadin. He was evaluated by vascular surgery and given the fact that he was asymptomatic from a vascular standpoint, intervention was not advised. Shortly after being discharge patient developed severe BL foot pain with walking. About 5 days ago, his left great toe started to develop an ulcer that has progressively gotten worse. He has also developed necrosis on the end of the left toe and a small amount on the end of the right toe. Patient reports he has not been very active. When patient arrived to triage, he was found to be hypotensive and had a syncopal event. Patient denies any other lightheadedness, dizziness, or syncope prior to that event. No chest pain or shortness of breath. He reports his appetite has been poor but denies abdominal pain, nausea, vomiting, or diarrhea. No fevers or chills. He denies urinary symptoms. In the ED, patient's BP was 62/40. He was given 1 L IVF with significant improvement in his symptoms. He is afebrile and without leukocytosis. He was given IV Vanco and Zosyn. Past Medical/Surgical History Medical Problems: (1) Alcohol use disorder Status: Chronic (2) CAD (coronary artery disease) Status: Chronic (3) Closed fracture of proximal end of left humerus Status: Resolved (4) COPD (chronic obstructive pulmonary disease) Status: Chronic (5) Depression Status: Chronic (6) DVT (deep venous thrombosis) Status: Resolved (7) History of alcohol abuse Status: Chronic (8) Hypercholesteremia Status: Chronic (9) Hyperlipidemia Status: Chronic (10) Malnutrition Status: Chronic (11) KS (myocardial infarction) Status: Resolved (12) PE (pulmonary embolism) Status: Resolved (13) Peripheral neuropathy Status: Chronic (14) Warfarin anticoagulation Status: Chronic Surgical Problems: (1) 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 Social History Smoking Status: Current Every Day Smoker Alcohol Use: occasionally Allergies Coded Allergies: No Known Allergies (Unverified , 09/16/17) Home Medications Scheduled Aspirin (Aspirin Ec), 81 MG PO DAILY Atorvastatin (Lipitor), 80 MG PO DAILY Calcium/Vitamin D (Os-[place] 500 Plus D), 1 TAB PO BID Clopidogrel (Plavix), 75 MG PO DAILY Cyanocobalamin (Vitamin B-12), 1,000 MCG PO DAILY Enalapril (Vasotec), 5 MG PO DAILY Ferrous Sulfate (Kp Ferrous Sulfate), 325 TAB PO BID Folic Acid (Folvite), 1 MG PO DAILY Gabapentin (Neurontin), 100 MG PO TID Magnesium Oxide (Mag-Ox), 400 MG PO BID Multivitamins/Minerals (Mvi With Minerals), 1 TAB PO DAILY Nutritional Supplements (Boost), 1 CAN PO BID Ranitidine (Zantac), 150 MG PO DAILY Sertraline (Zoloft), 50 MG PO DAILY Thiamine Hcl (Vitamin B-1), 50 MG PO DAILY Warfarin Sod (Jantoven), 2 MG PO DAILY@1600 Scheduled PRN Acetaminophen (Tylenol), 650 MG PO Q6 PRN for Pain or Fever Magnesium Hydroxide (Milk of Magnesia), 30 ML PO DAILY PRN for Constipation Review of Systems ROS per HPI, all other systems reviewed and negative Physical Exam Vital Signs Date Time Temp Pulse Resp B/P (MAP) Pulse Ox O2 Delivery O2 Flow Rate FiO2 09/16/17 16:31 36.5 67 20 151/74 (99) 95 Room Air 09/16/17 16:05 73 14 129/67 93 09/16/17 15:21 64 15 98 09/16/17 15:16 67 20 97 09/16/17 15:12 127/75 09/16/17 15:11 66 16 98 09/16/17 15:06 64 13 98 09/16/17 15:01 65 16 96 09/16/17 15:00 68 18 127/75 100 Room Air 09/16/17 14:56 63 13 99 09/16/17 14:51 63 15 98 09/16/17 14:46 66 15 98 09/16/17 14:41 70 15 97 09/16/17 14:36 63 16 99 09/16/17 14:31 62 13 98 09/16/17 14:26 66 15 99 09/16/17 14:21 64 17 99 09/16/17 14:16 70 23 100 09/16/17 14:14 36.6 18 107/69 91 Room Air 09/16/17 14:11 67 20 98 09/16/17 14:06 67 15 95 09/16/17 14:01 71 13 96 09/16/17 13:56 62 12 99 09/16/17 13:51 65 17 97 09/16/17 13:46 68 20 93 09/16/17 13:41 60 15 99 09/16/17 13:36 63 16 99 09/16/17 13:31 65 15 100 09/16/17 13:26 57 18 100 09/16/17 13:21 63 18 99 09/16/17 13:16 64 20 100 09/16/17 13:11 61 14 99 09/16/17 13:06 64 7 98 09/16/17 13:01 69 14 98 09/16/17 12:56 62 7 98 09/16/17 12:51 72 20 97 09/16/17 12:46 65 24 97 09/16/17 12:41 64 13 97 09/16/17 12:36 64 12 92 09/16/17 12:31 64 20 91 09/16/17 12:26 70 9 99 09/16/17 12:22 65 09/16/17 12:21 65 18 97 09/16/17 12:16 72 107/69 91 Room Air 09/16/17 12:06 36.6 83 18 62/40 91 Room Air General Appearance: WD/WN, no apparent distress, + pertinent finding ( chronically ill appearing) Head: normocephalic, atraumatic Eyes: normal inspection, EOMI, sclerae normal ENT: hearing grossly normal, + pertinent finding (mucous membanes moist) Neck: supple, no JVD, trachea midline Respiratory/Chest: lungs clear, normal breath sounds, no respiratory distress Cardiovascular: regular rate, rhythm, no edema, + abnormal peripheral pulses ( diminished pedal pulses) Abdomen/GI: normal bowel sounds, non tender, soft, no organomegaly Extremities/Musculoskelatal: normal inspection, no calf tenderness, normal capillary refill Neurologic/Psych: no motor/sensory deficits, alert, normal mood/affect, oriented x 3 Skin: + pertinent finding (left great toe with area of necrosis to the proximal end with ulcer on the dorsal aspect of the toe; redness over the dorsal aspect of the left foot; small area of necrosis on the proximal end of the right great toe) Diagnostics Laboratory Results Results Past 24 Hours Test 09/16/17 00:00 09/16/17 12:40 09/16/17 12:48 09/16/17 12:52 Range/Units Urine Color YELLOW Urine Appearance CLEAR CLEAR Urine pH 8.0 4.5-7.5 Urine Specific [place] 1.007 1.000-1.030 Urine Protein NEG NEG Urine Glucose (UA) NEG NEG Urine Ketones NEG NEG Urine Occult Blood NEG NEG Urine Nitrite NEG NEG Urine Bilirubin NEG NEG Urine Urobilinogen NEG NEG Urine Leukocyte Esterase NEG NEG Urine WBC (Auto) 0 0-5 /hpf Urine RBC (Auto) 0-4 0-4 /hpf Urine Hyaline Casts (Auto) 0 0-5 /lpf Urine Epithelial Cells (Auto) 0-5 0-5 /lpf Urine Bacteria (Auto) NEG NEG Urine Osmolality 217 500-800 mOms/kg White Blood Count 10.21 4.8-10.8 K/uL Red Blood Count 3.94 4.7-6.1 M/uL Hemoglobin 12.9 14.0-18.0 g/dL Hematocrit 36.9 42-52 % Mean Corpuscular Volume 93.7 80-100 fL Mean Corpuscular Hemoglobin 32.7 25-34 pg Mean Corpuscular Hemoglobin Concent 35.0 32-36 g/dl Platelet Count 295 130-400 K/uL Mean Platelet Volume 9.4 7.4-10.4 fL Neutrophils (%) (Auto) 70.1 % Lymphocytes (%) (Auto) 19.7 % Monocytes (%) (Auto) 7.2 % Eosinophils (%) (Auto) 2.5 % Basophils (%) (Auto) 0.3 % Neutrophils # (Auto) 7.15 1.4-6.5 K/uL Lymphocytes # (Auto) 2.01 1.2-3.4 K/uL Monocytes # (Auto) 0.74 0.11-0.59 K/uL Eosinophils # (Auto) 0.26 0-0.5 K/uL Basophils # (Auto) 0.03 0-0.2 K/uL RDW Standard Deviation 48.6 36.4-46.3 fL RDW Coefficient of Variation 14.2 11.5-14.5 % Immature Granulocyte % (Auto) 0.2 % Immature Granulocyte # (Auto) 0.02 0.00-0.02 K/uL Sodium Level 124 136-145 mmol/L Potassium Level 3.5-5.1 mmol/L Chloride Level 91 98-107 mmol/L Carbon Dioxide Level 25 21-32 mmol/L Anion Gap 9.0 16.0 16-25 mmol/L Blood Urea Nitrogen 6 7-18 mg/dl Creatinine 1.01 0.60-1.40 mg/dl Est Creatinine Clear Calc Drug Dose 63.1 ml/min Estimated GFR () 86.3 Estimated GFR (Non- 74.5 BUN/Creatinine Ratio 6.1 10-20 Random Glucose 89 70-99 mg/dl Calcium Level 9.0 8.5-10.1 mg/dl Magnesium Level 1.8-2.4 mg/dl Total Bilirubin 0.7 0.2-1 mg/dl Direct Bilirubin 0-0.2 mg/dl Aspartate Amino Transf (AST/SGOT) 15-37 U/L Alanine Aminotransferase (ALT/SGPT) 20 12-78 U/L Alkaline Phosphatase 99 45-117 U/L Total Creatine Kinase 39-308 U/L Creatine Kinase MB < 0.5 0.5-3.6 ng/ml Creatine Kinase MB Ratio 0-3.0 Troponin I < 0.015 0-0.045 ng/ml Total Protein 8.0 6.4-8.2 gm/dl Albumin 2.6 3.4-5.0 gm/dl Bedside Lactic Acid Venous 2.09 0.90-1.70 mmol/L Bedside Hemoglobin 13.6 14.0-18.0 g/dl Bedside Hematocrit 40 42-52 % Bedside Sodium 127 135-144 mEq/L Bedside Potassium 4.8 3.3-5.0 mEq/L Bedside Chloride 89 101-112 mEq/L Bedside Total CO2 28 24-31 mEq/l Bedside Blood Urea Nitrogen 6 7-18 mg/dl Bedside Creatinine 1.0 0.6-1.3 mg/dl Bedside Glucose (other) 99 70-99 mg/dl Bedside Ionized Calcium (Leslie) 1.06 1.12-1.32 mmol/l Test 09/16/17 14:01 09/16/17 16:57 Range/Units Potassium Level 4.1 3.5-5.1 mmol/L Magnesium Level 1.8 1.8-2.4 mg/dl Direct Bilirubin 0.2 0-0.2 mg/dl Aspartate Amino Transf (AST/SGOT) 21 15-37 U/L Total Creatine Kinase 64 39-308 U/L Prothrombin Time 17.5 9.0-12.0 SECONDS Prothromb Time International Ratio 1.7 0.9-1.1 Sodium Level 126 136-145 mmol/L Osmolality 265 280-300 mOsm/kg Lactic Acid Level 1.9 0.4-2.0 mmol/L Microbiology Results 09/16/17 Blood Culture, Received Pending 09/16/17 Blood Culture, Received Pending 09/16/17 Urine Culture, Received Pending 09/16/17 Gram Stain, Received Pending 09/16/17 Wound Culture, Received Pending Diagnostic Radiology RIGHT TOE XR IMPRESSION: No acute bony abnormality is seen in the right first toe. LEFT TOE XR IMPRESSION: Negative study. CXR IMPRESSION: No acute process. Impression Assessment and Plan SYNCOPE - admit to tele - patient presented to the ED for evaluation of BL foot pain and left toe ulcer ; while in triage, patient became hypotensive, diaphoretic, and subsequently passed out - patient reports a poor appetite - suspect syncope was vaso vagal due to foot pain and/or orthostasis from volume depletion from poor PO intake - patient with significant improvement after 1L IVF - continue IVF - monitor orthostatic BPs - initial troponin negative, EKG without acute ST changes; will continue to cycle cardiac enzymes LEFT GREAT TOE ULCER, PAD - during last admission patient was found to have bilateral superficial femoral artery occlusion and bilateral infra popliteal artery occlusive disease - initially patient was not having symptoms so no intervention was advised - patient now presenting with BL foot pain and ulceration of the left great toe - case discussed with Dr. Hussein - NPO after midnight for arteriography tomorrow - on Coumadin, INR 1.7 - will place on Heparin for now - wound culture - redness over the dorsal aspect of the foot - likely from poor circulation; however will empirically place on Vanco and Zosyn for now HYPONATREMIA - likely due to poor PO intake - Na 124; gentle IVF, follow Na+ levels for over correction - urine and serum osmo CAD - stable, no reports of chest pain - continue ASA, Plavix, statin, and ACEi HX DVT/PE - on Heparin for now for procedure tomorrow DVT PROPHYLAXIS - heparin gtt CODE STATUS - Patient is a full code as per my discussion with him. DISPO - In my clinical judgment this beneficiary meets acute admission criteria, established by [facility], that includes being hospitalized through two midnights. - PT/OT when appropriate, case management consults; may need short term rehab stay at discharge ATTENDING ADDENDUM care coordinated with ELEAZAR Brown please refer to her notes for full details, I agree with her notes patient seen and examined, records reviewed by myself as well on exam, patient seen resting in bed, comfortable pain under control denies dizziness, headache, chest pain, dyspnea, palpitations no other symptoms VS noted and reviewed oriented x 3 , not in distress, speaks in sentences with no effort nor accessory muscle use normal rate, regular rhythm, no murmurs clear breath sounds bilaterally non distended, soft, nontender no bipedal edema, erythema, warmth Left big toe: (+) necrotic distal phalanx, 2nd toe: necrotic distal phalanx no neuro deficits WBC 10 Hg 12 Crea 1.01 ASSESSMENT/PLAN> ISCHEMIC 1ST AND 2ND TOE, LEFT FOOT - already on coumadin for DVT/PT recently, but INR 1.7 started Heparin drip Vascular Surgeon consulted, NPO after midnight, possible revascularization procedure tomorrow HISTORY OF RECENT PE/DVT - on coumadin other diagnoses and plan of care as per MATEO Johnson's notes Darrell Gordon MD Advanced Directives Existing Living Will: No Existing Power of Paginator: No VTE Prophylaxis VTE Risk Assessment Done? Y/N: Yes Risk Level: Moderate
[2017-09-16 19:33] VITALS: BP 128/68; PULSE 55; TEMP 36.5; O2SAT 96
[2017-09-16] MEDS: HEPARIN 25,000 UNIT/500ML D5W 500 ML IV PRN (19:37)
[2017-09-16] MEDS: FERROUS SULFATE 325 MG TAB PO SCH (19:39)
[2017-09-16] MEDS: CALCIUM 600MG + VIT D 400 IU TAB PO SCH (19:39)
[2017-09-16] MEDS: MAGNESIUM OXIDE 400 MG TAB PO SCH (19:40)
[2017-09-16] MEDS: GABAPENTIN 100 MG CAP PO SCH (19:40)
[2017-09-16 19:48] LABS: CKMB 0.6 ng/ml (0.5-3.6)
[2017-09-16] MEDS: BOOST VANILLA PO SCH (20:16)
[2017-09-16] MEDS: PIPERACILL/TAZOBAC IV 3.375 GM in DEXTROSE 5% 100ML 100 ML IV SCH (20:16)
[2017-09-16 20:27] VITALS: BP_SYST 108; BP_SYST 114; BP_SYST 120; BP_DIAS 66; BP_DIAS 70; BP_DIAS 71; PULSE 57; PULSE 58; PULSE 60; O2SAT 98
[2017-09-16 23:53] VITALS: BP 107/60; PULSE 76; TEMP 36.4; O2SAT 95
[2017-09-17] VITALS (14 sets, daily range): BP systolic 106–162; BP diastolic 52–72; PULSE 56–89; TEMP 36.5–36.8; O2SAT 94–99
[2017-09-17 01:35] LABS: CKMB 0.6 ng/ml (0.5-3.6)
[2017-09-17 02:38] LABS: PTT PATIENT 53.9 SECONDS (21.0-31.0)
[2017-09-17] MEDS: VANCOMYCIN INJ 1,000 MG in SODIUM CHLORIDE 0.9% 250ML 250 ML IV SCH ×2 (04:09→15:28)
[2017-09-17] MEDS: PIPERACILL/TAZOBAC IV 3.375 GM in DEXTROSE 5% 100ML 100 ML IV SCH ×3 (04:09→19:40)
[2017-09-17] MEDS: SODIUM CHLORIDE 0.9% 1000ML 1,000 ML IV SCH ×2 (04:09→19:40)
[2017-09-17] MEDS: BOOST VANILLA PO SCH ×2 (09:00→19:42)
[2017-09-17 09:20] LABS: BASO % 0.1 %; BASO ABS # 0.01 K/uL (0-0.2); EOS % 4.2 %; EOS ABS # 0.32 K/uL (0-0.5); IG# 0.02 K/uL (0.00-0.02); LYMPH % 15.4 %; LYMPH ABS # 1.17 K/uL (1.2-3.4); MEAN CELL VOLUME 91.9 fL (80-100); MEAN CORPUSCULAR HEMOGLOBIN 32.4 pg (25-34); MEAN CORPUSCULAR HGB CONC 35.3 g/dl (32-36); MEAN PLATELET VOLUME 9.6 fL (7.4-10.4); MONO % 7.5 %; MONO ABS # 0.57 K/uL (0.11-0.59); NEUT % 72.5 %; NEUT ABS # 5.51 K/uL (1.4-6.5); PLATELET COUNT 262 K/uL (130-400); RED CELL DISTRIBUTION WIDTH CV 14.1 % (11.5-14.5); RED CELL DISTRIBUTION WIDTH SD 47.7 fL (36.4-46.3)
[2017-09-17 09:51] LABS: CALCIUM 8.3 mg/dl (8.5-10.1); CREATININE 0.98 mg/dl (0.60-1.40); POTASSIUM 3.8 mmol/L (3.5-5.1)
--- NOTE | 2017-09-17 10:19 | Surgery Consultation ---
Consultation Date of Service Sep 17, 2017. (Sara Cuevas, CHRISTINE) Chief Complaint BLE PAD (Sara Cuevas, CHRISTINE) History of Present Illness The patient is a 72 year old male with hx of DVT, HTN, hypercholesterolemia, admitted d/t discoloration of BLE, seen in consultation today for ischemic BLE. Pt denies pain in BLE and states he is able to walk 100 yds without any problems or pain. Pt is noted to be a very poor historian. When asked, pt states he noted discoloration and "black lines" on his BL great toes and that is the only reason he is here. Denies BELL, fever, chills, chest pain, SOB, abd pain, N/V, rest pain, claudication, ulcers or other complaints. Pt was seen by Dr Hussein last month and noted to have severe PAD, however, pt had no sx at the time, so no intervention was performed. Pt was scheduled to follow up in our office next week. Old imaging demonstrates BLE SFAO and severe infrapop disease. Pt states he smokes 5-6 cigarettes daily. (Sara Cuevas, CHRISTINE) Vitals Vital Signs Past 12 Hours Date Time Temp Pulse Resp B/P (MAP) Pulse Ox O2 Delivery O2 Flow Rate FiO2 09/17/17 08:00 94 Room Air 09/17/17 07:32 36.5 69 18 122/67 (85) 94 Room Air 09/17/17 04:00 Room Air 09/17/17 03:51 36.6 71 16 121/52 (75) 95 Room Air 09/16/17 23:59 Room Air 09/16/17 23:53 36.4 76 18 107/60 (76) 95 Room Air (Sara Cuevas, CHRISTINE) Allergies Coded Allergies: No Known Allergies (Unverified , 09/16/17) Home Medications Scheduled Aspirin (Aspirin Ec), 81 MG PO DAILY Atorvastatin (Lipitor), 80 MG PO DAILY Calcium/Vitamin D (Os-[place] 500 Plus D), 1 TAB PO BID Clopidogrel (Plavix), 75 MG PO DAILY Cyanocobalamin (Vitamin B-12), 1,000 MCG PO DAILY Enalapril (Vasotec), 5 MG PO DAILY Ferrous Sulfate (Kp Ferrous Sulfate), 325 TAB PO BID Folic Acid (Folvite), 1 MG PO DAILY Gabapentin (Neurontin), 100 MG PO TID Magnesium Oxide (Mag-Ox), 400 MG PO BID Multivitamins/Minerals (Mvi With Minerals), 1 TAB PO DAILY Nutritional Supplements (Boost), 1 CAN PO BID Ranitidine (Zantac), 150 MG PO DAILY Sertraline (Zoloft), 50 MG PO DAILY Thiamine Hcl (Vitamin B-1), 50 MG PO DAILY Warfarin Sod (Jantoven), 2 MG PO DAILY@1600 Scheduled PRN Acetaminophen (Tylenol), 650 MG PO Q6 PRN for Pain or Fever Magnesium Hydroxide (Milk of Magnesia), 30 ML PO DAILY PRN for Constipation Problem List Medical Problems: (1) Alcohol use disorder (2) CAD (coronary artery disease) (3) Closed fracture of proximal end of left humerus (4) COPD (chronic obstructive pulmonary disease) (5) Depression (6) DVT (deep venous thrombosis) (7) History of alcohol abuse (8) Hypercholesteremia (9) Hyperlipidemia (10) Malnutrition (11) UT (myocardial infarction) (12) PE (pulmonary embolism) (13) Peripheral neuropathy (14) Warfarin anticoagulation Surgical Problems: (1) H/o neuroma removed from foot (2) History of carpal tunnel surgery (3) Hx of CABG (4) S/P coronary artery stent placement (Sara Cuevas, ALMAC) Surgical / Medical History Hx Cardiac Surgery: Yes Hx Abdominal Surgery: Yes (HERNIA) Hx Cancer Surgery: No Hx Thoracic Surgery: No Hx Orthopedic: No Hx Urinary Tract Surgery: No Past Medical/Surgical History: Heart Disease, High Cholesterol, Hypertension (Sara Cuevas, ALMAC) Family History Patient reports no known family medical history. (Sara Cuevas, ALMAC) Patient reports no known family medical history. (Abhijeet Hussein M.D.) Social History Smoking Status: Current Every Day Smoker Hx Tobacco Use In Past Year?: No Hx Alcohol Use - Type & Amnt: Yes (3+ WHISKEY AND MIXED DRINKS/DAY) Hx Substance Use -Type & Amnt: No (Sara Cuevas, ALMAC) Review of Systems Constitutional: No chills, No fever, No malaise Skin: + change in color Eyes: No visual changes ENMT: No sore throat Respiratory: No cough, No SHERIFF, No hemoptysis Cardiovascular: No chest pain, No palpitations, No syncope, No edema, No intermittent claudication Gastrointestinal: No abdominal pain, No nausea, No vomiting Musculoskeletal: No back pain Neurologic: No dizziness, No headache, No lethargy, No numbness, No tingling ( Sara Cuevas, PAAnayaC) Physical Exam Constitutional: General Apperance: well-nourished, well-developed, too thin Level of Distress: NAD, chronically ill Psychiatric: Mental Status: active & alert, normal mood, normal affect Orientation: oriented except where noted, to time, to place, to person Memory: recent memory abnormal (vague, poor historian), remote memory abnormal (vague, poor historian) Head: normocephalic, atraumatic Eyes: EOM: EOMI ENMT: normal ENT inspection, hearing grossly normal Neck: supple, trachea midline Lungs: Respiratory effort: no dyspnea Auscultation: no rales/crackles, no rhonchi, expiratory wheezing Cardiovascular: Apical Impulse: not displaced Heart Auscultation: RRR, no rubs, no gallops Peripheral Pulses: Pulses: full and equal, in all extremities except if noted Bruits: none appreciated Carotid Pulse: normal on the left, normal on the right Brachial Pulses: normal on the left, normal on the right Radial Pulse: normal on the left, normal on the right Femoral Pulse: normal on the left, normal on the right Posterior Tibialis Pulse: absent on the left, absent on the right Dorsalis Pedis Pulse: absent on the left, absent on the right Abdomen: Bowel Sounds: normal Inspection & Palpation: soft, non-distended, no tenderness, guarding & rebound Musculoskeletal: normal strength (5/5 throughout), normal tone Extremities: Upper Right: no cyanosis, no edema, no varicosities Upper Left: no cyanosis, no edema, no varicosities Lower Right: gangrene (dry gangrene to distal tip R great toe, other toes appear normal with good cap refill.) Lower Left: cyanosis, mottling, gangrene (to L 1st and 2nd toes, tender. All toes white and waxy, no refill to forefoot. ) Neurologic: Cranial Nerves: grossly intact (Sara Cuevas, PA-C) Assessment and Plan ASSESSMENT and PLAN: LLE severe PAD with ischemia and gangrene RLE severe PAD with gangrene, possible embolization Pt is poor historian, so timing of sx difficult to elicit. After discussion with Dr Hussein, recommend OR for aortogram with BLE runoff today to determine whether any surgical options are available for limb salvage. Discussed with pt, he is agreeable. (Sara Cuevas, PA-C) Patient was seen, examined, and chart reviewed. Agree with exam and treatment plan of the Vascular PA. Bilateral gangrene of the toes. Recommend arteriography with possible intervention. I have discussed the risks options and benefits of the procedure with the patient. The patient understands the risks options and benefits and agrees to the procedure. (Abhijeet Hussein M.D.)
[2017-09-17] MEDS: THIAMINE HCL 50 MG TAB PO SCH (10:21)
[2017-09-17] MEDS: SERTRALINE HCL 50 MG TAB PO SCH (10:21)
[2017-09-17] MEDS: CEROVITE ADV FORMULA TAB PO SCH (10:21)
[2017-09-17] MEDS: ENALAPRIL MALEATE 5 MG TAB PO SCH (10:21)
[2017-09-17] MEDS: ATORVASTATIN 40 MG TAB PO SCH (10:21)
[2017-09-17] MEDS: CLOPIDOGREL BISULFATE 75 MG TAB PO SCH (10:21)
[2017-09-17] MEDS: GABAPENTIN 100 MG CAP PO SCH ×3 (10:21→19:44)
[2017-09-17] MEDS: RANITIDINE HCL 150 MG TAB PO SCH (10:22)
[2017-09-17] MEDS: CALCIUM 600MG + VIT D 400 IU TAB PO SCH ×2 (10:22→19:45)
[2017-09-17] MEDS: ASPIRIN 81 MG ECTAB PO SCH (10:22)
[2017-09-17] MEDS: MAGNESIUM OXIDE 400 MG TAB PO SCH ×2 (10:22→19:45)
[2017-09-17] MEDS: FERROUS SULFATE 325 MG TAB PO SCH ×2 (10:22→19:45)
[2017-09-17] MEDS: CYANOCOBALAMIN 500 MCG TAB (VIT B-12) PO SCH (10:22)
--- NOTE | 2017-09-17 14:52 | Progress Note ---
Progress Note Date of Service Sep 17, 2017. Progress Note Patient for aortogram with bilat runoff. I have discussed the risks options and benefits of the procedure with the patient. The patient understands the risks options and benefits and agrees to the procedure. I have examined the patient, reviewed the History & Physical and in the interval since the performance of the History & Physical I have noted the following changes of clinical significance: No changes noted
--- NOTE | 2017-09-17 14:53 | Procedure Note ---
Pre-Mod Sedation Assessment General Date of Moderate Sedation: Sep 17, 2017. Vital Signs: Vital Signs Past 12 Hours Date Time Temp Pulse Resp B/P (MAP) Pulse Ox O2 Delivery O2 Flow Rate FiO2 09/17/17 12:00 Room Air 09/17/17 11:59 36.6 60 19 111/60 (77) 94 Room Air 09/17/17 08:00 94 Room Air 09/17/17 07:32 36.5 69 18 122/67 (85) 94 Room Air 09/17/17 04:00 Room Air 09/17/17 03:51 36.6 71 16 121/52 (75) 95 Room Air Pre-Sedation Airway Assessment Oral Cavity: Dentures Smoking Status: Current Every Day Smoker Mallampati Classification: Class I ASA Classification: Class III Notes The planned sedation has been discussed with the patient and consent obtained. I have identified the patient, determined the appropriateness of sedation and have assessed the patient immediately prior to the procedure. All medicine(s) and interventions are by my order.
[2017-09-17] MEDS ORDERED: MIDAZOLAM HCL 1 MG/ML 2ML VIAL ONE ×2 (15:53→17:37)
[2017-09-17] MEDS ORDERED: FENTANYL CITRATE INJ 50 MCG/1 ML 2 ML VIAL ONE (15:53)
[2017-09-17] MEDS ORDERED: HEPARIN SOD (PORCINE) 1000 UNIT/ML 10 ML VIAL ONE (15:53)
--- NOTE | 2017-09-17 17:07 | Progress Note ---
Internal Med Progress Note Date of Service: Sep 17, 2017. Provider Documentation: SUBJECTIVE: resting comfortably denies any pain today afebrile no chest pain or sob denies any other complaints OBJECTIVE: Vital Signs-as noted below Exam: General-alert and awake and not in distress ENT- normal hear Neck-no neck masses Lungs-cta b/l no wheezing no crackles present Heart-s1 and s2 heard regular rate and rhythm no murmurs Abdomen-soft BS present non tender no distension Extremities- left great toe wound with necrosis Neuro-alert and awake moves extremities Lab data as noted below. ASSESSMENT & PLAN: SYNCOPE patien was in the ED for evaluation of BL foot pain and left toe ulcer and was while in triage, patient became hypotensive, diaphoretic, and subsequently passed out poor appetite Most likely syncope was vaso vagal due to foot pain and/or orthostasis from volume depletion from poor PO intake on fluids Ce and ekg unremarkable will monitor in tele LEFT GREAT TOE ULCER, PAD During last admission patient was found to have bilateral superficial femoral artery occlusion and bilateral infra popliteal artery occlusive disease As patient was not having symptoms so no intervention was advised currently presenting with BL foot pain and ulceration of the left great toe on iv heparin as inr was sub therapeutic Vascular surgery consulted and plan for aortogram today HYPONATREMIA due to poor PO intake On presentation Na 124 on iv ns@80ml/hr Na 131 today will monitor - CAD stable, no reports of chest pain on ASA, Plavix, statin, and ACEi 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 for now for procedure tomorrow DVT PROPHYLAXIS heparin gtt CODE STATUS full DISPOSITION monitor in tele to be determined Vital Signs: Date Time Temp Pulse Resp B/P (MAP) Pulse Ox O2 Delivery O2 Flow Rate FiO2 09/17/17 16:49 36.8 71 18 120/66 96 Room Air 09/17/17 16:15 36.8 71 18 120/66 96 Room Air 09/17/17 16:10 36.8 71 18 120/66 (84) 96 09/17/17 16:00 Room Air 09/17/17 15:59 36.6 60 19 111/60 94 Room Air 09/17/17 12:00 Room Air 09/17/17 11:59 36.6 60 19 111/60 (77) 94 Room Air 09/17/17 08:00 94 Room Air 09/17/17 07:32 36.5 69 18 122/67 (85) 94 Room Air 09/17/17 04:00 Room Air 09/17/17 03:51 36.6 71 16 121/52 (75) 95 Room Air 09/16/17 23:59 Room Air 09/16/17 23:53 36.4 76 18 107/60 (76) 95 Room Air 09/16/17 20:27 57 18 114/71 (85) 98 Room Air 58 120/70 (87) 60 108/66 (80) 09/16/17 20:00 Room Air 09/16/17 19:33 36.5 55 20 128/68 (88) 96 Lab Results: Results Past 24 Hours Test 09/16/17 18:36 09/16/17 18:50 09/17/17 00:36 09/17/17 00:49 Range/Units Creatine Kinase MB Ratio 0-3.0 White Blood Count 9.60 4.8-10.8 K/uL Red Blood Count 3.45 4.7-6.1 M/uL Hemoglobin 11.1 14.0-18.0 g/dL Hematocrit 32.0 42-52 % Mean Corpuscular Volume 92.8 80-100 fL Mean Corpuscular Hemoglobin 32.2 25-34 pg Mean Corpuscular Hemoglobin Concent 34.7 32-36 g/dl Platelet Count 244 130-400 K/uL Mean Platelet Volume 9.5 7.4-10.4 fL Neutrophils (%) (Auto) 78.3 % Lymphocytes (%) (Auto) 12.1 % Monocytes (%) (Auto) 6.5 % Eosinophils (%) (Auto) 2.6 % Basophils (%) (Auto) 0.2 % Neutrophils # (Auto) 7.52 1.4-6.5 K/uL Lymphocytes # (Auto) 1.16 1.2-3.4 K/uL Monocytes # (Auto) 0.62 0.11-0.59 K/uL Eosinophils # (Auto) 0.25 0-0.5 K/uL Basophils # (Auto) 0.02 0-0.2 K/uL RDW Standard Deviation 48.6 36.4-46.3 fL RDW Coefficient of Variation 14.3 11.5-14.5 % Immature Granulocyte % (Auto) 0.3 % Immature Granulocyte # (Auto) 0.03 0.00-0.02 K/uL Prothrombin Time 18.4 9.0-12.0 SECONDS Prothromb Time International Ratio 1.8 0.9-1.1 Activated Partial Thromboplast Time 38.7 21.0-31.0 SECONDS Partial Thromboplastin Ratio 1.5 Creatine Kinase MB 0.6 0.6 0.5-3.6 ng/ml Troponin I < 0.015 < 0.015 0-0.045 ng/ml Test 09/17/17 01:59 09/17/17 08:50 Range/Units Activated Partial Thromboplast Time 53.9 21.0-31.0 SECONDS Partial Thromboplastin Ratio 2.1 White Blood Count 7.60 4.8-10.8 K/uL Red Blood Count 3.70 4.7-6.1 M/uL Hemoglobin 12.0 14.0-18.0 g/dL Hematocrit 34.0 42-52 % Mean Corpuscular Volume 91.9 80-100 fL Mean Corpuscular Hemoglobin 32.4 25-34 pg Mean Corpuscular Hemoglobin Concent 35.3 32-36 g/dl Platelet Count 262 130-400 K/uL Mean Platelet Volume 9.6 7.4-10.4 fL Neutrophils (%) (Auto) 72.5 % Lymphocytes (%) (Auto) 15.4 % Monocytes (%) (Auto) 7.5 % Eosinophils (%) (Auto) 4.2 % Basophils (%) (Auto) 0.1 % Neutrophils # (Auto) 5.51 1.4-6.5 K/uL Lymphocytes # (Auto) 1.17 1.2-3.4 K/uL Monocytes # (Auto) 0.57 0.11-0.59 K/uL Eosinophils # (Auto) 0.32 0-0.5 K/uL Basophils # (Auto) 0.01 0-0.2 K/uL RDW Standard Deviation 47.7 36.4-46.3 fL RDW Coefficient of Variation 14.1 11.5-14.5 % Immature Granulocyte % (Auto) 0.3 % Immature Granulocyte # (Auto) 0.02 0.00-0.02 K/uL Sodium Level 131 136-145 mmol/L Potassium Level 3.8 3.5-5.1 mmol/L Chloride Level 100 98-107 mmol/L Carbon Dioxide Level 24 21-32 mmol/L Anion Gap 7.0 3-11 mmol/L Blood Urea Nitrogen 6 7-18 mg/dl Creatinine 0.98 0.60-1.40 mg/dl Est Creatinine Clear Calc Drug Dose 60.9 ml/min Estimated GFR () 89.5 Estimated GFR (Non- 77.3 BUN/Creatinine Ratio 5.9 10-20 Random Glucose 85 70-99 mg/dl Calcium Level 8.3 8.5-10.1 mg/dl Microbiology Results 09/17/17 C.difficile Toxin B Gene (PCR) - Final, Complete No C. difficile toxin B gene detected 09/16/17 Gram Stain - Final, Resulted 09/16/17 Wound Culture - Preliminary, Resulted Coag Neg Staphylococcus
[2017-09-17] MEDS ORDERED: FENTANYL CITRATE INJ 50 MCG/1 ML 2 ML VIAL IV ONE ×2 (17:09→17:32)
[2017-09-17] MEDS ORDERED: MIDAZOLAM HCL 1 MG/ML 2ML VIAL IV ONE ×2 (17:33)
--- NOTE | 2017-09-17 18:20 | [facility] Post Operative Brief Note ---
Immediate Operative Summary Operative Date Sep 17, 2017. Pre-Operative Diagnosis Bilateral Gangrene Post-Operative Diagnosis SAME Procedure(s) Performed Aortogram with Bilateral Lower Extremity Angiogram, Mechanical Closure of Right Femoral Artery, Moderate Sedation from 1731 - [address] Lyn [employer] Operator Surgeon(s) Dr. Hussein Estimated Blood Loss 5 Findings bilat sfa and pop occlusions. Severe IPAOD. Peroneal reconstitutes bilateral to foot Specimens None Anesthesia Local with sedation Complication(s) None Disposition
[2017-09-18] VITALS (7 sets, daily range): BP systolic 81–143; BP diastolic 45–71; PULSE 60–98; TEMP 36.3–37; O2SAT 93–99
[2017-09-18] MEDS ORDERED: VANCOMYCIN TROUGH SCH (03:30)
[2017-09-18] MEDS: PIPERACILL/TAZOBAC IV 3.375 GM in DEXTROSE 5% 100ML 100 ML IV SCH ×3 (03:35→19:27)
[2017-09-18] MEDS: VANCOMYCIN INJ 1,000 MG in SODIUM CHLORIDE 0.9% 250ML 250 ML IV SCH ×2 (03:35→16:13)
[2017-09-18] MEDS: SODIUM CHLORIDE 0.9% 1000ML 1,000 ML IV SCH (03:41)
[2017-09-18 04:04] LABS: PTT PATIENT 49.5 SECONDS (21.0-31.0)
[2017-09-18] MEDS: HEPARIN 25,000 UNIT/500ML D5W 500 ML IV PRN (05:15)
[2017-09-18] MEDS: RANITIDINE HCL 150 MG TAB PO SCH (08:28)
[2017-09-18] MEDS: CLOPIDOGREL BISULFATE 75 MG TAB PO SCH (08:28)
[2017-09-18] MEDS: CEROVITE ADV FORMULA TAB PO SCH (08:28)
[2017-09-18] MEDS: CYANOCOBALAMIN 500 MCG TAB (VIT B-12) PO SCH (08:28)
[2017-09-18] MEDS: CALCIUM 600MG + VIT D 400 IU TAB PO SCH ×2 (08:28→20:33)
[2017-09-18] MEDS: ATORVASTATIN 40 MG TAB PO SCH (08:28)
[2017-09-18] MEDS: ASPIRIN 81 MG ECTAB PO SCH (08:28)
[2017-09-18] MEDS: FERROUS SULFATE 325 MG TAB PO SCH ×2 (08:28→20:33)
[2017-09-18] MEDS: SERTRALINE HCL 50 MG TAB PO SCH (08:28)
[2017-09-18] MEDS: MAGNESIUM OXIDE 400 MG TAB PO SCH ×2 (08:29→20:33)
[2017-09-18] MEDS: THIAMINE HCL 50 MG TAB PO SCH (08:29)
[2017-09-18] MEDS: GABAPENTIN 100 MG CAP PO SCH ×3 (08:29→20:34)
[2017-09-18] MEDS: ENALAPRIL MALEATE 5 MG TAB PO SCH (08:30)
[2017-09-18] MEDS: BOOST VANILLA PO SCH ×2 (08:37→20:34)
[2017-09-18 09:44] LABS: CALCIUM 8.4 mg/dl (8.5-10.1); CREATININE 1.03 mg/dl (0.60-1.40)
--- NOTE | 2017-09-18 10:55 | Progress Note ---
Progress Note Date of Service Sep 18, 2017. Progress Note No complaints Puncture site ok Vein mapping pending. Await vein mapping to make further recommendations and plans.
--- NOTE | 2017-09-18 14:47 | DIAGNOSTIC IMAGING REPORT ---
BILATERAL LOWER EXTREMITY VENOUS MAPPING CLINICAL HISTORY: Gangrene bilateral toes. COMPARISON STUDY: No previous studies for comparison. FINDINGS: Please note that detailed measurements are located within the PACS system. The right greater saphenous vein is patent from the groin to the distal calf, ranging in caliber from 4 mm to 7.1 mm. The right small saphenous vein is patent at the level the knee, measuring 5.7 mm in caliber. This vessel is also patent at the level of the proximal calf however there is nonocclusive thrombus within this vessel from the level the mid to distal calf. The left greater saphenous vein is not visualized in its entirety and is only shown from the level of the knee to the calf, ranging in caliber from 3.1 to 3.9 mm. The remainder of the left greater saphenous vein may have been resected for CABG. The left small saphenous vein is not well visualized. IMPRESSION: 1. Patent right greater saphenous vein which ranges in caliber from 4 mm to 7.1 mm, as described above. Please note that detailed measurements are located within the PACS system. Right small saphenous vein patent from the level of the knee to proximal calf however nonocclusive thrombus within this vessel at the level of the mid to distal calf. 2. Left greater saphenous vein not visualized in its entirety, but patent from the level of the knee to calf. Remainder of vessel may have been resected for CABG. Electronically signed by: Nicolas Mcintyre M.D. 09/18/2017 2:46 PM Dictated Date/Time: 09/18/2017 2:38 PM
--- NOTE | 2017-09-18 16:13 | Progress Note ---
Internal Med Progress Note Date of Service: Sep 18, 2017. Provider Documentation: SUBJECTIVE: resting comfortably NO PAIN NO SOB HEMODYNAMICS STABLE AFEBRILE says he is fine and denies any complaints OBJECTIVE: Vital Signs-as noted below Exam: General-alert and awake and not in distress ENT- normal hear Neck-no neck masses Lungs-cta b/l no wheezing no crackles present Heart-s1 and s2 heard regular rate and rhythm no murmurs Abdomen-soft BS present non tender no distension Extremities- left great toe wound with necrosis Neuro-alert and awake moves extremities Lab data as noted below. ASSESSMENT & PLAN: SYNCOPE patient was in the ED for evaluation of BL foot pain and left toe ulcer and was while in triage, patient became hypotensive, diaphoretic, and subsequently passed out poor appetite Most likely syncope was vaso vagal due to foot pain and/or orthostasis from volume depletion from poor PO intake on fluids Ce and ekg unremarkable will monitor in tele stable LEFT GREAT TOE ULCER, PAD During last admission patient was found to have bilateral superficial femoral artery occlusion and bilateral infra popliteal artery occlusive disease As patient was not having symptoms so no intervention was advised currently presenting with BL foot pain and ulceration of the left great toe on iv heparin as inr was sub therapeutic Vascular surgery consulted and s/p aortogram - awaiting vein mapping for further recommendations wound care consult HYPONATREMIA due to poor PO intake On presentation Na 124 currently placed on iv ns@50ml/hr Na 132 today will monitor - CAD stable, no reports of chest pain on ASA, Plavix, statin, and ACEi 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 DVT PROPHYLAXIS heparin gtt CODE STATUS full DISPOSITION transfer to medical floor to be determined Vital Signs: Date Time Temp Pulse Resp B/P (MAP) Pulse Ox O2 Delivery O2 Flow Rate FiO2 09/18/17 14:30 97 Room Air 09/18/17 14:13 36.6 62 20 135/71 (92) 97 09/18/17 12:00 Room Air 09/18/17 12:00 37.0 98 18 108/47 (67) 96 Room Air 09/18/17 08:00 36.5 60 16 96/46 (63) 95 Room Air 64 111/57 (75) 62 81/45 (57) 09/18/17 08:00 Room Air 09/18/17 04:00 Room Air 09/18/17 03:44 36.6 71 18 106/63 (77) 95 Room Air 09/17/17 23:59 Room Air 09/17/17 23:08 36.6 68 19 117/61 (79) 96 Room Air 72 127/61 (83) 89 106/54 (71) 09/17/17 20:30 59 18 120/72 (88) 96 Room Air 09/17/17 20:00 18 155/70 (98) 98 Room Air 09/17/17 20:00 Room Air 09/17/17 19:30 36.7 56 18 120/70 (87) 96 Room Air 09/17/17 19:24 36.6 60 18 162/70 (100) 95 09/17/17 19:15 36.7 58 18 127/68 (87) 94 Room Air 09/17/17 18:18 67 16 145/77 Room Air 100 Nasal Cannula 09/17/17 16:49 36.8 71 18 120/66 96 Room Air 09/17/17 16:15 36.8 71 18 120/66 96 Room Air Lab Results: Results Past 24 Hours Test 09/18/17 03:23 Range/Units Activated Partial Thromboplast Time 49.5 21.0-31.0 SECONDS Partial Thromboplastin Ratio 1.9 Sodium Level 132 136-145 mmol/L Potassium Level 4.0 3.5-5.1 mmol/L Chloride Level 99 98-107 mmol/L Carbon Dioxide Level 26 21-32 mmol/L Anion Gap 6.0 3-11 mmol/L Blood Urea Nitrogen 5 7-18 mg/dl Creatinine 1.03 0.60-1.40 mg/dl Est Creatinine Clear Calc Drug Dose 60.7 ml/min Estimated GFR () 84.3 Estimated GFR (Non- 72.7 BUN/Creatinine Ratio 4.7 10-20 Random Glucose 86 70-99 mg/dl Calcium Level 8.4 8.5-10.1 mg/dl Vancomycin Level Trough 20.2 SEE COMMENT mcg/ml
--- NOTE | 2017-09-18 17:38 | Pharmacy Progress Note ---
Pharmacy Abx Dose Short Note Date of Service Sep 18, 2017. Assessment & Plan Assessment 72 year old male receiving Vancomycin for treatment of infected ulcer on toes. Wound culture from 09/16/17: coag (-) staph Day # 3/ of antimicrobial therapy. Plan Vancomycin * Trough level of 20.2 mcg/mL reported 09/18/17 @03:23is supratherapeutic. * Change to Vancomycin 1,000 mg IV every 14 hours * Goal trough level for skin/soft tissue : 15 to 20 mcg/mL * Trough level ordered for: 09/20/17 @ 09:30 Pharmacy will continue to follow and will adjust dose/frequency as necessary. Thank you.
[2017-09-19] MEDS: SODIUM CHLORIDE 0.9% 1000ML 1,000 ML IV SCH (04:15)
[2017-09-19] MEDS: PIPERACILL/TAZOBAC IV 3.375 GM in DEXTROSE 5% 100ML 100 ML IV SCH ×3 (04:15→19:55)
[2017-09-19] MEDS: VANCOMYCIN INJ 1,000 MG in SODIUM CHLORIDE 0.9% 250ML 250 ML IV SCH ×2 (05:57→19:56)
[2017-09-19 06:52] LABS: BASO % 0.4 %; BASO ABS # 0.03 K/uL (0-0.2); EOS % 6.2 %; EOS ABS # 0.42 K/uL (0-0.5); HEMATOCRIT 30.2 % (42-52); HEMOGLOBIN 10.6 g/dL (14.0-18.0); IG# 0.02 K/uL (0.00-0.02); LYMPH ABS # 1.28 K/uL (1.2-3.4); MEAN CELL VOLUME 91.8 fL (80-100); MEAN CORPUSCULAR HEMOGLOBIN 32.2 pg (25-34); MEAN CORPUSCULAR HGB CONC 35.1 g/dl (32-36); MEAN PLATELET VOLUME 9.4 fL (7.4-10.4); MONO % 8.2 %; MONO ABS # 0.55 K/uL (0.11-0.59); NEUT % 65.9 %; NEUT ABS # 4.43 K/uL (1.4-6.5); PLATELET COUNT 237 K/uL (130-400); RED CELL DISTRIBUTION WIDTH CV 14.1 % (11.5-14.5); RED CELL DISTRIBUTION WIDTH SD 47.3 fL (36.4-46.3); WHITE BLOOD COUNT 6.73 K/uL (4.8-10.8)
[2017-09-19 07:10] LABS: PTT PATIENT 62.2 SECONDS (21.0-31.0)
[2017-09-19 07:23] LABS: CALCIUM 8.3 mg/dl (8.5-10.1); CREATININE 0.96 mg/dl (0.60-1.40); POTASSIUM 3.4 mmol/L (3.5-5.1)
[2017-09-19 08:07] VITALS: BP 130/68; PULSE 64; TEMP 36.7; O2SAT 95
[2017-09-19] MEDS: BOOST VANILLA PO SCH ×2 (09:11→19:57)
[2017-09-19] MEDS: THIAMINE HCL 50 MG TAB PO SCH (09:11)
[2017-09-19] MEDS: MAGNESIUM OXIDE 400 MG TAB PO SCH ×2 (09:12→20:03)
[2017-09-19] MEDS: GABAPENTIN 100 MG CAP PO SCH ×3 (09:12→20:03)
[2017-09-19] MEDS: CYANOCOBALAMIN 500 MCG TAB (VIT B-12) PO SCH (09:13)
[2017-09-19] MEDS: CLOPIDOGREL BISULFATE 75 MG TAB PO SCH (09:13)
[2017-09-19] MEDS: CALCIUM 600MG + VIT D 400 IU TAB PO SCH ×2 (09:13→19:57)
[2017-09-19] MEDS: ASPIRIN 81 MG ECTAB PO SCH (09:13)
[2017-09-19] MEDS: ATORVASTATIN 40 MG TAB PO SCH (09:13)
[2017-09-19] MEDS: SERTRALINE HCL 50 MG TAB PO SCH (09:14)
[2017-09-19] MEDS: FERROUS SULFATE 325 MG TAB PO SCH ×2 (09:14→20:02)
[2017-09-19] MEDS: ENALAPRIL MALEATE 5 MG TAB PO SCH (09:14)
[2017-09-19] MEDS: CEROVITE ADV FORMULA TAB PO SCH (09:14)
[2017-09-19] MEDS: RANITIDINE HCL 150 MG TAB PO SCH (09:14)
[2017-09-19] MEDS: HEPARIN 25,000 UNIT/500ML D5W 500 ML IV PRN (12:18)
[2017-09-19 13:20] VITALS: BP 111/59; PULSE 61; TEMP 36.9; O2SAT 96
[2017-09-19 13:22] VITALS: BP 106/49; PULSE 64
[2017-09-19 13:23] VITALS: BP 80/31; PULSE 63
--- NOTE | 2017-09-19 15:17 | Progress Note ---
Internal Med Progress Note Date of Service: Sep 19, 2017. Provider Documentation: SUBJECTIVE: resting comfortably denies any pain no cough says he is doing fine afebrile OBJECTIVE: Vital Signs-as noted below Exam: General-alert and awake and not in distress ENT- normal hear Neck-no neck masses Lungs-cta b/l no wheezing no crackles present Heart-s1 and s2 heard regular rate and rhythm no murmurs Abdomen-soft BS present non tender no distension Extremities- left great toe wound with necrosis Neuro-alert and awake moves extremities Lab data as noted below. ASSESSMENT & PLAN: SYNCOPE patient was in the ED for evaluation of BL foot pain and left toe ulcer and was while in triage, patient became hypotensive, diaphoretic, and subsequently passed out poor appetite Most likely syncope was vaso vagal due to foot pain and/or orthostasis from volume depletion from poor PO intake on fluids Ce and ekg unremarkable stable transferred to [facility] floor LEFT GREAT TOE ULCER, PAD During last admission patient was found to have bilateral superficial femoral artery occlusion and bilateral infra popliteal artery occlusive disease As patient was not having symptoms so no intervention was advised currently presenting with BL foot pain and ulceration of the left great toe on iv heparin as inr was sub therapeutic Vascular surgery consulted and s/p aortogram - awaiting vein mapping for further recommendations wound care consult stable - await further vascular surgery recommendations HYPONATREMIA due to poor PO intake On presentation Na 124 currently placed on iv ns@50ml/hr Na 131 today will stop fluids will monitor - CAD stable, no reports of chest pain on ASA, Plavix, statin, and ACEi 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 DVT PROPHYLAXIS heparin gtt CODE STATUS full DISPOSITION Monitor in medical floor to be determined Vital Signs: Date Time Temp Pulse Resp B/P (MAP) Pulse Ox O2 Delivery O2 Flow Rate FiO2 09/19/17 13:23 63 80/31 (47) 09/19/17 13:22 64 106/49 (68) 09/19/17 13:20 36.9 61 20 111/59 (76) 96 09/19/17 08:07 36.7 64 20 130/68 (88) 95 09/19/17 08:00 Room Air 09/19/17 00:02 Room Air 09/18/17 23:03 36.6 62 18 143/63 (89) 93 Room Air 09/18/17 16:03 36.3 69 18 135/59 (84) 99 Room Air 117/63 (81) 109/50 (69) 09/18/17 16:00 Room Air Lab Results: Results Past 24 Hours Test 09/19/17 06:29 Range/Units White Blood Count 6.73 4.8-10.8 K/uL Red Blood Count 3.29 4.7-6.1 M/uL Hemoglobin 10.6 14.0-18.0 g/dL Hematocrit 30.2 42-52 % Mean Corpuscular Volume 91.8 80-100 fL Mean Corpuscular Hemoglobin 32.2 25-34 pg Mean Corpuscular Hemoglobin Concent 35.1 32-36 g/dl Platelet Count 237 130-400 K/uL Mean Platelet Volume 9.4 7.4-10.4 fL Neutrophils (%) (Auto) 65.9 % Lymphocytes (%) (Auto) 19.0 % Monocytes (%) (Auto) 8.2 % Eosinophils (%) (Auto) 6.2 % Basophils (%) (Auto) 0.4 % Neutrophils # (Auto) 4.43 1.4-6.5 K/uL Lymphocytes # (Auto) 1.28 1.2-3.4 K/uL Monocytes # (Auto) 0.55 0.11-0.59 K/uL Eosinophils # (Auto) 0.42 0-0.5 K/uL Basophils # (Auto) 0.03 0-0.2 K/uL RDW Standard Deviation 47.3 36.4-46.3 fL RDW Coefficient of Variation 14.1 11.5-14.5 % Immature Granulocyte % (Auto) 0.3 % Immature Granulocyte # (Auto) 0.02 0.00-0.02 K/uL Activated Partial Thromboplast Time 62.2 21.0-31.0 SECONDS Partial Thromboplastin Ratio 2.4 Sodium Level 131 136-145 mmol/L Potassium Level 3.4 3.5-5.1 mmol/L Chloride Level 100 98-107 mmol/L Carbon Dioxide Level 25 21-32 mmol/L Anion Gap 6.0 3-11 mmol/L Blood Urea Nitrogen 2 7-18 mg/dl Creatinine 0.96 0.60-1.40 mg/dl Est Creatinine Clear Calc Drug Dose 65.1 ml/min Estimated GFR () 91.8 Estimated GFR (Non- 79.2 BUN/Creatinine Ratio 2.4 10-20 Random Glucose 82 70-99 mg/dl Calcium Level 8.3 8.5-10.1 mg/dl Magnesium Level 1.8 1.8-2.4 mg/dl
[2017-09-19] MEDS ORDERED: NICOTINE 14 MG/24 HR TDSY TD STA (16:03)
[2017-09-19] MEDS: ACETAMINOPHEN 325 MG TAB PO PRN (17:10)
[2017-09-19 19:30] VITALS: O2SAT 96
[2017-09-19 23:14] VITALS: BP 133/73; PULSE 66; TEMP 36.3; O2SAT 97
[2017-09-20] MEDS: ACETAMINOPHEN 325 MG TAB PO PRN (03:29)
[2017-09-20] MEDS: PIPERACILL/TAZOBAC IV 3.375 GM in DEXTROSE 5% 100ML 100 ML IV SCH (03:38)
[2017-09-20] MEDS ORDERED: TRAMADOL HCL 50 MG TAB PO ONE (04:45)
[2017-09-20] MEDS: HEPARIN 25,000 UNIT/500ML D5W 500 ML IV PRN ×2 (07:13→17:06)
[2017-09-20 08:02] VITALS: BP 140/75; PULSE 72; TEMP 36.6; O2SAT 96
[2017-09-20] MEDS: ENALAPRIL MALEATE 5 MG TAB PO SCH (08:36)
[2017-09-20] MEDS: ATORVASTATIN 40 MG TAB PO SCH (08:37)
[2017-09-20] MEDS: CALCIUM 600MG + VIT D 400 IU TAB PO SCH ×2 (08:37→21:24)
[2017-09-20] MEDS: CEROVITE ADV FORMULA TAB PO SCH (08:37)
[2017-09-20] MEDS: FERROUS SULFATE 325 MG TAB PO SCH ×2 (08:37→21:23)
[2017-09-20] MEDS: SERTRALINE HCL 50 MG TAB PO SCH (08:37)
[2017-09-20] MEDS: ASPIRIN 81 MG ECTAB PO SCH (08:37)
[2017-09-20] MEDS: CYANOCOBALAMIN 500 MCG TAB (VIT B-12) PO SCH (08:37)
[2017-09-20] MEDS: RANITIDINE HCL 150 MG TAB PO SCH (08:37)
[2017-09-20] MEDS: CLOPIDOGREL BISULFATE 75 MG TAB PO SCH (08:37)
[2017-09-20] MEDS: GABAPENTIN 100 MG CAP PO SCH ×3 (08:38→21:23)
[2017-09-20] MEDS: MAGNESIUM OXIDE 400 MG TAB PO SCH ×2 (08:38→21:24)
[2017-09-20] MEDS: NICOTINE 14 MG/24 HR TDSY TD SCH (08:39)
[2017-09-20] MEDS: THIAMINE HCL 50 MG TAB PO SCH (08:39)
[2017-09-20] MEDS: BOOST VANILLA PO SCH ×2 (08:42→21:00)
[2017-09-20] MEDS ORDERED: VANCOMYCIN TROUGH ONE (09:30)
[2017-09-20 10:48] LABS: PTT PATIENT 50.9 SECONDS (21.0-31.0)
[2017-09-20] MEDS: VANCOMYCIN INJ 1,000 MG in SODIUM CHLORIDE 0.9% 250ML 250 ML IV SCH (10:48)
[2017-09-20 10:49] LABS: CREATININE 0.95 mg/dl (0.60-1.40); POTASSIUM 3.5 mmol/L (3.5-5.1)
--- NOTE | 2017-09-20 11:22 | Pharmacy Progress Note ---
Pharmacy Antibiotic Prog Note Date of Service Sep 20, 2017. Subjective The patient is currently receiving vancomycin 1000 mg IV every 14 hours. The patient is currently on day # 5 of vancomycin IV therapy. Objective Height (Feet): 6 Height (Inches): 0.00 Weight (Kilograms): 65.200 Lab Results (24hrs): Test 09/20/17 09:55 Activated Partial Thromboplast Time 50.9 SECONDS (21.0-31.0) Partial Thromboplastin Ratio 2.0 Sodium Level 127 mmol/L (136-145) Potassium Level 3.5 mmol/L (3.5-5.1) Chloride Level 95 mmol/L (98-107) Carbon Dioxide Level 25 mmol/L (21-32) Anion Gap 7.0 mmol/L (3-11) Blood Urea Nitrogen 2 mg/dl (7-18) Creatinine 0.95 mg/dl (0.60-1.40) Est Creatinine Clear Calc Drug Dose 65.8 ml/min Estimated GFR () 93.0 Estimated GFR (Non- 80.2 BUN/Creatinine Ratio 2.1 (10-20) Random Glucose 85 mg/dl (70-99) Calcium Level 8.0 mg/dl (8.5-10.1) Magnesium Level 1.7 mg/dl (1.8-2.4) Vancomycin Level Trough 25.4 mcg/ml (SEE COMMENT) Assessment & Plan Assessment * 72 yo M with infected great toe ulceration. * Cultures with coag negative Staph. * On Zosyn, vancomycin since 09/16. Zosyn discontinued today. Plan to complete 7 days vancomycin * Patient is afebrile with normal WBC * Renal function stable and at/near baseline Vancomycin * Goal vancomycin trough ~15 mcg/mL. * Trough of 25.4 mcg/mL is supratherapeutic. * Spoke germania Johnson (ZAIRA) - will stop the vancomycin infusion hung at ~1045 today. Patient will have received ~10-15 minutes, equating to ~100 mg vancomycin * Will schedule next vancomycin dose to start after about one half-life * On vancomycin 1000 mg (15 mg/kg) IV q14h. Will decrease to 18 mg/kg IV q24h. This will likely produce a level of about 15 mcg/mL Plan * Stop currently infusing vancomycin bag (done by RN) * Decrease vancomycin 1250 mg IV q24h, starting 1999 tonight * No additional levels needed unless renal function changes or therapy continues beyond 7 days (scheduled to stop 09/23 @ 9419) Pharmacy will continue to follow and will adjust dose/frequency as necessary. Thank you
[2017-09-20 15:12] VITALS: BP 124/71; PULSE 68; TEMP 36.5; O2SAT 95
--- NOTE | 2017-09-20 17:40 | Progress Note ---
Internal Med Progress Note Date of Service: Sep 20, 2017. Provider Documentation: SUBJECTIVE: resting comfortably has some pain in left foot afebrile eating ok denies any other complaints OBJECTIVE: Vital Signs-as noted below Exam: General-alert and awake and not in distress ENT- normal hear Neck-no neck masses Lungs-cta b/l no wheezing no crackles present Heart-s1 and s2 heard regular rate and rhythm no murmurs Abdomen-soft BS present non tender no distension Extremities- left great toe wound with necrosis/gangrene Neuro-alert and awake moves extremities Lab data as noted below. ASSESSMENT & PLAN: 72m WITH HX OF ALCOHOLISM CURRENTLY IN REMISSION WHO WAS RECENTLY IN HOSPITAL FOR AMS AND DURING THAT STAY FOUND TO HAVE B/L DVT AND WAS STARTED ON COUMADIN, ALSO FOUND TO HAVE SEVERE PVD BUT NO INTERVENTION WAS DONE HE WAS ASYMPTOMATIC AND WAS DISCHARGED TO REHAB COMES BACK WITH HYPOTENSION, SYNCOPE AND GANGRENOUS LEFT FIRST TWO TOES. STARTED ON IV ABX AND FLUIDS GIVEN. CURRENTLY HEMODYNAMICALLY STABLE. S/P AORTOGRAM BY VASCULAR SURGERY AND WAITING FOR VEIN MAPPING. AWAIT FURTHER RECOMMENDATIONS BY VASCULAR SURGERY. SYNCOPE patient was in the ED for evaluation of BL foot pain and left toe ulcer and was while in triage, patient became hypotensive, diaphoretic, and subsequently passed out poor appetite Most likely syncope was vaso vagal due to foot pain and/or orthostasis from volume depletion from poor PO intake on fluids Ce and ekg unremarkable stable currently LEFT GREAT TOE ULCER/gangrene, PAD During last admission patient was found to have bilateral superficial femoral artery occlusion and bilateral infra popliteal artery occlusive disease As patient was not having symptoms so no intervention was advised currently presenting with BL foot pain and ulceration of the left great toe on iv heparin as inr was sub therapeutic Vascular surgery consulted and s/p aortogram - awaiting vein mapping for further recommendations wound care consult started on iv vanco and zosyn cx coag neg staph Zosyn stopped today and continue vanco#5 Awaiting further vascular surgery recommendations HYPONATREMIA due to poor PO intake On presentation Na 124 currently placed on iv ns@50ml/hr Na improved to 131 stopped fluids na 127 today will f/u serum osmolality and urine osmolality f/u labs in amr - CAD stable, no reports of chest pain on ASA, Plavix, statin, and ACEi 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 Coumadin on hold for any procedures DVT PROPHYLAXIS heparin gtt CODE STATUS full DISPOSITION Monitor in medical floor pt/ot prior to d/c social service for d/c planning Vital Signs: Date Time Temp Pulse Resp B/P (MAP) Pulse Ox O2 Delivery O2 Flow Rate FiO2 09/20/17 16:00 Room Air 09/20/17 15:12 36.5 68 18 124/71 (88) 95 Room Air 09/20/17 08:02 36.6 72 20 140/75 (96) 96 Room Air 09/20/17 08:00 Room Air 09/20/17 00:57 Room Air 09/19/17 23:14 36.3 66 18 133/73 (93) 97 Room Air 09/19/17 19:30 96 Room Air Lab Results: Results Past 24 Hours Test 09/20/17 09:55 09/20/17 19:10 Range/Units Activated Partial Thromboplast Time 50.9 21.0-31.0 SECONDS Partial Thromboplastin Ratio 2.0 Sodium Level 127 136-145 mmol/L Potassium Level 3.5 3.5-5.1 mmol/L Chloride Level 95 98-107 mmol/L Carbon Dioxide Level 25 21-32 mmol/L Anion Gap 7.0 3-11 mmol/L Blood Urea Nitrogen 2 7-18 mg/dl Creatinine 0.95 0.60-1.40 mg/dl Est Creatinine Clear Calc Drug Dose 65.8 ml/min Estimated GFR () 93.0 Estimated GFR (Non- 80.2 BUN/Creatinine Ratio 2.1 10-20 Random Glucose 85 70-99 mg/dl Calcium Level 8.0 8.5-10.1 mg/dl Magnesium Level 1.7 1.8-2.4 mg/dl Vancomycin Level Trough 25.4 SEE COMMENT mcg/ml
[2017-09-20] MEDS: VANCOMYCIN INJ 1,250 MG in SODIUM CHLORIDE 0.9% 250ML 250 ML IV SCH (19:18)
[2017-09-20 22:36] VITALS: BP 139/67; PULSE 73; TEMP 36.7; O2SAT 97
[2017-09-21 05:51] LABS: BASO % 0.7 %; BASO ABS # 0.05 K/uL (0-0.2); EOS % 7.3 %; EOS ABS # 0.56 K/uL (0-0.5); HEMATOCRIT 30.5 % (42-52); HEMOGLOBIN 10.8 g/dL (14.0-18.0); IG# 0.02 K/uL (0.00-0.02); LYMPH % 19.8 %; LYMPH ABS # 1.52 K/uL (1.2-3.4); MEAN CELL VOLUME 91.3 fL (80-100); MEAN CORPUSCULAR HEMOGLOBIN 32.3 pg (25-34); MEAN CORPUSCULAR HGB CONC 35.4 g/dl (32-36); MEAN PLATELET VOLUME 9.8 fL (7.4-10.4); MONO % 6.4 %; MONO ABS # 0.49 K/uL (0.11-0.59); NEUT % 65.5 %; NEUT ABS # 5.05 K/uL (1.4-6.5); PLATELET COUNT 259 K/uL (130-400); RED CELL DISTRIBUTION WIDTH CV 14.4 % (11.5-14.5); RED CELL DISTRIBUTION WIDTH SD 47.6 fL (36.4-46.3); WHITE BLOOD COUNT 7.69 K/uL (4.8-10.8)
[2017-09-21 06:01] LABS: PTT PATIENT 44.7 SECONDS (21.0-31.0)
[2017-09-21 06:26] LABS: CALCIUM 8.7 mg/dl (8.5-10.1); CREATININE 0.9 mg/dl (0.60-1.40); POTASSIUM 3.8 mmol/L (3.5-5.1)
[2017-09-21] MEDS ORDERED: HEPARIN IV BOLUS 3,000 UNIT in SYRINGE 0 ML IV ONE (07:00)
[2017-09-21] MEDS: HEPARIN 25,000 UNIT/500ML D5W 500 ML IV PRN ×2 (07:09→23:14)
[2017-09-21 07:13] VITALS: BP 102/56; PULSE 71; TEMP 36.4; O2SAT 92
[2017-09-21] MEDS ORDERED: MAGNESIUM SULFATE 1GM / D5W 1 GM in PREMIXED IN D5W 100 ML IV ONE (08:15)
[2017-09-21] MEDS: NICOTINE 14 MG/24 HR TDSY TD SCH (09:00)
[2017-09-21] MEDS: BOOST VANILLA PO SCH ×2 (09:01→20:48)
[2017-09-21] MEDS: MAGNESIUM OXIDE 400 MG TAB PO SCH ×2 (09:02→20:50)
[2017-09-21] MEDS: CALCIUM 600MG + VIT D 400 IU TAB PO SCH ×2 (09:02→20:50)
[2017-09-21] MEDS: ASPIRIN 81 MG ECTAB PO SCH (09:02)
[2017-09-21] MEDS: GABAPENTIN 100 MG CAP PO SCH ×3 (09:02→20:50)
[2017-09-21] MEDS: CYANOCOBALAMIN 500 MCG TAB (VIT B-12) PO SCH (09:03)
[2017-09-21] MEDS: RANITIDINE HCL 150 MG TAB PO SCH (09:03)
[2017-09-21] MEDS: ATORVASTATIN 40 MG TAB PO SCH (09:03)
[2017-09-21] MEDS: ENALAPRIL MALEATE 5 MG TAB PO SCH (09:03)
[2017-09-21] MEDS: CLOPIDOGREL BISULFATE 75 MG TAB PO SCH (09:03)
[2017-09-21] MEDS: CEROVITE ADV FORMULA TAB PO SCH (09:04)
[2017-09-21] MEDS: FERROUS SULFATE 325 MG TAB PO SCH ×2 (09:04→20:50)
[2017-09-21] MEDS: THIAMINE HCL 50 MG TAB PO SCH (09:04)
[2017-09-21] MEDS: SERTRALINE HCL 50 MG TAB PO SCH (09:04)
--- NOTE | 2017-09-21 10:45 | Progress Note ---
Progress Note Date of Service Sep 21, 2017. Progress Note After review of vein mapping, recommend pt to undergo LLE femoral - peroneal artery transposed in situ bypass using LLE GSV and RLE SSV composite graft. Planning on WEDNESDAY, 09/24. Will discuss with pt and daughter.
[2017-09-21 13:51] LABS: PTT PATIENT 48.5 SECONDS (21.0-31.0)
[2017-09-21 15:06] VITALS: BP 134/69; PULSE 61; TEMP 36.4; O2SAT 98
--- NOTE | 2017-09-21 17:38 | Progress Note ---
Progress Note Date of Service Sep 21, 2017. Progress Note SUBJECTIVE: Patient denies new complaints OBJECTIVE: Exam: General-alert and awake and not in distress ENT- normal hear Neck-no neck masses Lungs-cta b/l no wheezing no crackles present Heart-s1 and s2 heard regular rate and rhythm no murmurs Abdomen-soft BS present non tender no distension Extremities- left great toe wound with necrosis/gangrene Neuro-alert and awake, moves extremities ASSESSMENT & PLAN: SYNCOPE resolved (patient was in the ED for evaluation of BL foot pain and left toe ulcer and was while in triage, patient became hypotensive, diaphoretic, and subsequently passed out poor appetite, ost likely syncope was vaso vagal due to foot pain and/or orthostasis from volume depletion from poor PO intake) LEFT GREAT TOE ULCER/gangrene, PAD on IV heparin as INR for bilateral superficial femoral artery occlusion and bilateral infra popliteal artery occlusive disease was sub therapeutic Vascular surgery consulted and s/p aortogram / patient to undergo LLE femoral - peroneal artery transposed in situ bypass using LLE GSV and RLE SSV composite graft on Wednesday09/24/17 Continue heparin drip up to day of vascular surgery wound care consult started on Zosyn and Vancomycin on 09/18/17 because culture was coag neg staph Zosyn stopped on 09/21/17 and continue vancomycin Hypotonic Hyponatremia may be due to poor oral intake patient's serum sodium from admission increased after IV fluids thyroid function test checked, clinically is euthyroid monitor serum sodium CAD history on ASA, Plavix, statin, and ACEi 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
[2017-09-21] MEDS: VANCOMYCIN INJ 1,250 MG in SODIUM CHLORIDE 0.9% 250ML 250 ML IV SCH (20:48)
[2017-09-21 22:48] VITALS: BP 118/55; PULSE 67; TEMP 36.5; O2SAT 93
[2017-09-21] MEDS: ACETAMINOPHEN 325 MG TAB PO PRN (23:45)
[2017-09-22 07:13] LABS: PTT PATIENT 44.8 SECONDS (21.0-31.0)
[2017-09-22 07:17] VITALS: BP 136/68; PULSE 76; TEMP 36.6; O2SAT 95
[2017-09-22] MEDS ORDERED: HEPARIN IV BOLUS 3,000 UNIT in SYRINGE 0 ML IV ONE ×2 (08:00→15:45)
[2017-09-22] MEDS: MAGNESIUM OXIDE 400 MG TAB PO SCH ×2 (08:39→21:35)
[2017-09-22] MEDS: THIAMINE HCL 50 MG TAB PO SCH (08:39)
[2017-09-22] MEDS: HEPARIN 25,000 UNIT/500ML D5W 500 ML IV PRN (08:39)
[2017-09-22] MEDS: CALCIUM 600MG + VIT D 400 IU TAB PO SCH ×2 (08:40→21:35)
[2017-09-22] MEDS: CYANOCOBALAMIN 500 MCG TAB (VIT B-12) PO SCH (08:40)
[2017-09-22] MEDS: CLOPIDOGREL BISULFATE 75 MG TAB PO SCH (08:40)
[2017-09-22] MEDS: ASPIRIN 81 MG ECTAB PO SCH (08:40)
[2017-09-22] MEDS: ATORVASTATIN 40 MG TAB PO SCH (08:40)
[2017-09-22] MEDS: ENALAPRIL MALEATE 5 MG TAB PO SCH (08:41)
[2017-09-22] MEDS: CEROVITE ADV FORMULA TAB PO SCH (08:41)
[2017-09-22] MEDS: GABAPENTIN 100 MG CAP PO SCH ×3 (08:41→21:36)
[2017-09-22] MEDS: FERROUS SULFATE 325 MG TAB PO SCH ×2 (08:41→21:34)
[2017-09-22] MEDS: SERTRALINE HCL 50 MG TAB PO SCH (08:41)
[2017-09-22] MEDS: RANITIDINE HCL 150 MG TAB PO SCH (08:41)
[2017-09-22] MEDS: NICOTINE 14 MG/24 HR TDSY TD SCH (08:42)
[2017-09-22] MEDS: BOOST VANILLA PO SCH ×2 (08:46→21:34)
--- NOTE | 2017-09-22 14:28 | Progress Note ---
Progress Note Date of Service Sep 22, 2017. Progress Note Discussed upcoming surgery with pt, expresses understanding and agreement for procedure on wednesday. Asked that we discuss with his daughter, Conchita. When I called her, she stated that she had already discussed with Dr Hussein this morning and had no further questions. LLE bypass procedure scheduled for Wednesday.
[2017-09-22 14:54] LABS: PTT PATIENT 45.5 SECONDS (21.0-31.0)
[2017-09-22 15:28] VITALS: BP 134/64; PULSE 72; TEMP 36.5; O2SAT 96
[2017-09-22 17:24] VITALS: O2SAT 96
--- NOTE | 2017-09-22 19:45 | Progress Note ---
Progress Note Date of Service Sep 22, 2017. Progress Note SUBJECTIVE: Patient denies new complaints OBJECTIVE: Exam: General-alert and awake and not in distress ENT- normal hear Neck-no neck masses Lungs-cta b/l no wheezing no crackles present Heart-s1 and s2 heard regular rate and rhythm no murmurs Abdomen-soft BS present non tender no distension Extremities- left great toe wound with necrosis/gangrene, adjacent toe is also darkened discolor same as yesterday, also the big toe of right foot with some ulcer same as yesterday Neuro-alert and awake, moves extremities ASSESSMENT & PLAN: SYNCOPE resolved (patient was in the ED for evaluation of BL foot pain and left toe ulcer and was while in triage, patient became hypotensive, diaphoretic, and subsequently passed out poor appetite, most likely syncope was vaso vagal due to foot pain and/or orthostasis from volume depletion from poor PO intake) LEFT GREAT TOE ULCER/gangrene, PAD on IV heparin as INR for bilateral superficial femoral artery occlusion and bilateral infra popliteal artery occlusive disease was sub therapeutic Vascular surgery consulted and s/p aortogram / patient to undergo LLE femoral - peroneal artery transposed in situ bypass using LLE GSV and RLE SSV composite graft on Wednesday09/24/17 Continue heparin drip up to day of vascular surgery wound care consult started on Zosyn and Vancomycin on 09/18/17 because wound culture was coag neg staph Zosyn stopped on 09/21/17 and continue vancomycin , awaiting sensitivities Hypotonic Hyponatremia may be due to poor oral intake patient's serum sodium from admission increased after IV fluids thyroid function test checked, clinically is euthyroid monitor serum sodium CAD history on ASA, Plavix, statin, and ACEi 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
[2017-09-22] MEDS: VANCOMYCIN INJ 1,250 MG in SODIUM CHLORIDE 0.9% 250ML 250 ML IV SCH (20:26)
[2017-09-22 21:42] LABS: PTT PATIENT 55.5 SECONDS (21.0-31.0)
[2017-09-23 00:46] VITALS: BP 129/71; PULSE 71; TEMP 36.9; O2SAT 95
[2017-09-23] MEDS: HEPARIN 25,000 UNIT/500ML D5W 500 ML IV PRN (04:49)
[2017-09-23 07:13] LABS: BASO % 0.4 %; BASO ABS # 0.03 K/uL (0-0.2); EOS % 5.9 %; EOS ABS # 0.45 K/uL (0-0.5); HEMATOCRIT 31.3 % (42-52); IG# 0.01 K/uL (0.00-0.02); LYMPH % 19.8 %; LYMPH ABS # 1.52 K/uL (1.2-3.4); MEAN CELL VOLUME 91.5 fL (80-100); MEAN CORPUSCULAR HEMOGLOBIN 32.2 pg (25-34); MEAN CORPUSCULAR HGB CONC 35.1 g/dl (32-36); MEAN PLATELET VOLUME 9.4 fL (7.4-10.4); MONO % 7.5 %; MONO ABS # 0.58 K/uL (0.11-0.59); NEUT % 66.3 %; PLATELET COUNT 271 K/uL (130-400); RED CELL DISTRIBUTION WIDTH CV 14.5 % (11.5-14.5); WHITE BLOOD COUNT 7.69 K/uL (4.8-10.8)
[2017-09-23 07:38] LABS: PTT PATIENT 47.1 SECONDS (21.0-31.0)
[2017-09-23 07:51] LABS: ALBUMIN 2.2 gm/dl (3.4-5.0); CALCIUM 8.4 mg/dl (8.5-10.1); CREATININE 0.85 mg/dl (0.60-1.40); POTASSIUM 3.5 mmol/L (3.5-5.1)
[2017-09-23 07:54] LABS: TOTAL PROTEIN 6.6 gm/dl (6.4-8.2)
[2017-09-23 08:08] VITALS: BP 100/60; PULSE 87; TEMP 36.9; O2SAT 93
[2017-09-23] MEDS: NICOTINE 14 MG/24 HR TDSY TD SCH (08:15)
[2017-09-23] MEDS: CEROVITE ADV FORMULA TAB PO SCH (08:15)
[2017-09-23] MEDS: THIAMINE HCL 50 MG TAB PO SCH (08:16)
[2017-09-23] MEDS: SERTRALINE HCL 50 MG TAB PO SCH (08:16)
[2017-09-23] MEDS: ASPIRIN 81 MG ECTAB PO SCH (08:16)
[2017-09-23] MEDS: RANITIDINE HCL 150 MG TAB PO SCH (08:16)
[2017-09-23] MEDS: ATORVASTATIN 40 MG TAB PO SCH (08:16)
[2017-09-23] MEDS: GABAPENTIN 100 MG CAP PO SCH ×3 (08:17→19:39)
[2017-09-23] MEDS: CALCIUM 600MG + VIT D 400 IU TAB PO SCH ×2 (08:17→19:39)
[2017-09-23] MEDS: MAGNESIUM OXIDE 400 MG TAB PO SCH ×2 (08:17→19:39)
[2017-09-23] MEDS: CYANOCOBALAMIN 500 MCG TAB (VIT B-12) PO SCH (08:17)
[2017-09-23] MEDS: ENALAPRIL MALEATE 5 MG TAB PO SCH (08:17)
[2017-09-23] MEDS: CLOPIDOGREL BISULFATE 75 MG TAB PO SCH (08:17)
[2017-09-23] MEDS: BOOST VANILLA PO SCH ×2 (08:18→19:38)
[2017-09-23] MEDS: FERROUS SULFATE 325 MG TAB PO SCH ×2 (08:18→19:40)
[2017-09-23] MEDS ORDERED: POTASSIUM CHLORIDE 20 MEQ TABCR PO STA (13:33)
[2017-09-23 15:18] VITALS: BP 119/67; PULSE 71; TEMP 36.6; O2SAT 96
[2017-09-23] MEDS: ACETAMINOPHEN 325 MG TAB PO PRN (15:24)
[2017-09-23] MEDS: SODIUM CHLORIDE 0.9% 1000ML 1,000 ML IV SCH (15:28)
--- NOTE | 2017-09-23 16:40 | Progress Note ---
Progress Note Date of Service Sep 23, 2017. Progress Note Patient denies new complaints OBJECTIVE: Exam: General-alert and awake and not in distress ENT- normal hear Neck-no neck masses Lungs-cta b/l no wheezing no crackles present Heart-s1 and s2 heard regular rate and rhythm no murmurs Abdomen-soft BS present non tender no distension Extremities- left great toe wound with necrosis/gangrene, adjacent toe is also darkened discolor same as yesterday, also the big toe of right foot with some ulcer same as yesterday Neuro-alert and awake, moves extremities ASSESSMENT & PLAN: SYNCOPE resolved (patient was in the ED for evaluation of BL foot pain and left toe ulcer and was while in triage, patient became hypotensive, diaphoretic, and subsequently passed out poor appetite, most likely syncope was vaso vagal due to foot pain and/or orthostasis from volume depletion from poor PO intake) LEFT GREAT TOE ULCER/gangrene, PAD on IV heparin as INR for bilateral superficial femoral artery occlusion and bilateral infra popliteal artery occlusive disease was sub therapeutic Vascular surgery consulted and s/p aortogram / patient to undergo LLE femoral - peroneal artery transposed in situ bypass using LLE GSV and RLE SSV composite graft on Wednesday09/24/17 Continue heparin drip up to day of vascular surgery wound care consult started on Zosyn and Vancomycin on 09/18/17 because wound culture was coag neg staph Zosyn stopped on 09/21/17 Vancomycin to be given until at least vascular procedure day on 09/24/17 Hypotonic Hyponatremia may be due to poor oral intake thyroid function test checked, clinically is euthyroid patient's serum sodium from admission increased after IV fluids, however subsequently coming down, will start IV fluids 75 cc/hr of normal saline and continue fluids up to day of vascular procedure Serum potasium 3.5 today and oral potassium was given CAD history on ASA, Plavix, statin, and ACEi 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
--- NOTE | 2017-09-23 18:19 | Progress Note ---
Progress Note Date of Service Sep 23, 2017. Progress Note Patient is a 72 year old M scheduled for LLE Fem-Pop bypass with Dr Hussein on . Patient presented with claudication on 09/17 and had a syncopal event in ED. 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 He remains on dual antiplatelet therapy through the perioperative period. He also is on Coumadin for a DVT and now on heparin drip for his leg ischemia with the coumadin on hold. He continues to smoke and has what seems to be stable COPD. An echo from last month shows a mild ischemic cardiomyopathy with mildly decreased LV systolic function and multiple RWMA. Airway exam is reassuring. The legs are warm at the time of my exam. Labs significant for chronic moderate hyponatremia. He is type and crossed. Anticipate GETA with invasive monitoring. I did discuss the possibility of overnight monitoring in SICU. I also discussed significant possibility of blood transfusion. Questions answered and consent was obtained. Given his NSTEMI and PCI <12 months ago and the nature of the procedure, he is moderate to high perioperative cardiovascular risk.
[2017-09-23 23:40] VITALS: BP 109/65; PULSE 66; TEMP 37; O2SAT 94
[2017-09-24] VITALS (16 sets, daily range): BP systolic 89–121; BP diastolic 37–70; PULSE 62–90; TEMP 36.2–36.6; O2SAT 92–98
[2017-09-24] MEDS: SODIUM CHLORIDE 0.9% 1000ML 1,000 ML IV SCH ×2 (05:09→18:00)
[2017-09-24] MEDS ORDERED: CEFAZOLIN 1000MG IV PUSH 5 ML IV SCH (06:00)
[2017-09-24] MEDS ORDERED: CEFAZOLIN IV 1,000 MG in DEXTROSE 5% 50ML 50 ML IV SCH ×2 (06:00→16:15)
[2017-09-24 06:31] LABS: BASO % 0.4 %; BASO ABS # 0.03 K/uL (0-0.2); EOS % 5.2 %; EOS ABS # 0.39 K/uL (0-0.5); HEMATOCRIT 31.3 % (42-52); HEMOGLOBIN 10.9 g/dL (14.0-18.0); IG# 0.01 K/uL (0.00-0.02); LYMPH % 19.1 %; LYMPH ABS # 1.44 K/uL (1.2-3.4); MEAN CELL VOLUME 91.3 fL (80-100); MEAN CORPUSCULAR HEMOGLOBIN 31.8 pg (25-34); MEAN CORPUSCULAR HGB CONC 34.8 g/dl (32-36); MEAN PLATELET VOLUME 9.4 fL (7.4-10.4); MONO % 8.6 %; MONO ABS # 0.65 K/uL (0.11-0.59); NEUT % 66.6 %; NEUT ABS # 5.03 K/uL (1.4-6.5); PLATELET COUNT 299 K/uL (130-400); RED CELL DISTRIBUTION WIDTH CV 14.6 % (11.5-14.5); RED CELL DISTRIBUTION WIDTH SD 48.7 fL (36.4-46.3); WHITE BLOOD COUNT 7.55 K/uL (4.8-10.8)
[2017-09-24 06:41] LABS: PTT PATIENT 40.5 SECONDS (21.0-31.0)
[2017-09-24 07:00] LABS: CALCIUM 8.6 mg/dl (8.5-10.1); CREATININE 0.83 mg/dl (0.60-1.40)
[2017-09-24] MEDS: ASPIRIN 81 MG ECTAB PO SCH (07:35)
[2017-09-24] MEDS: CLOPIDOGREL BISULFATE 75 MG TAB PO SCH ×2 (07:35→08:35)
[2017-09-24] MEDS: ATORVASTATIN 40 MG TAB PO SCH ×2 (07:35→08:35)
[2017-09-24] MEDS: SERTRALINE HCL 50 MG TAB PO SCH (07:36)
[2017-09-24] MEDS: NICOTINE 14 MG/24 HR TDSY TD SCH (07:36)
[2017-09-24] MEDS: GABAPENTIN 100 MG CAP PO SCH ×3 (07:36→20:43)
[2017-09-24] MEDS: ENALAPRIL MALEATE 5 MG TAB PO SCH (07:36)
[2017-09-24] MEDS ORDERED: HEPARIN IV BOLUS 4,500 UNIT in SYRINGE 0 ML IV ONE (07:45)
[2017-09-24] MEDS: HEPARIN 25,000 UNIT/500ML D5W 500 ML IV PRN ×2 (07:55→20:37)
[2017-09-24] MEDS: CALCIUM 600MG + VIT D 400 IU TAB PO SCH ×2 (08:34→20:43)
[2017-09-24] MEDS: BOOST VANILLA PO SCH (08:34)
[2017-09-24] MEDS: FERROUS SULFATE 325 MG TAB PO SCH ×2 (08:34→20:43)
[2017-09-24] MEDS: MAGNESIUM OXIDE 400 MG TAB PO SCH ×2 (08:35→20:43)
[2017-09-24] MEDS: THIAMINE HCL 50 MG TAB PO SCH (08:35)
[2017-09-24] MEDS: CEROVITE ADV FORMULA TAB PO SCH (08:35)
[2017-09-24] MEDS: RANITIDINE HCL 150 MG TAB PO SCH (08:35)
[2017-09-24] MEDS: CYANOCOBALAMIN 500 MCG TAB (VIT B-12) PO SCH (08:35)
--- NOTE | 2017-09-24 08:56 | Progress Note ---
Progress Note Date of Service Sep 24, 2017. Progress Note Patient denies new complaints He is awaiting vascular procedure OBJECTIVE: Exam: General-alert and awake and not in distress ENT- normal hear Neck-no neck masses Lungs-cta b/l no wheezing no crackles present Heart-s1 and s2 heard regular rate and rhythm no murmurs Abdomen-soft BS present non tender no distension Extremities- left great toe wound with necrosis/gangrene, adjacent toe is also darkened discolor same as yesterday, also the big toe of right foot with some ulcer same as yesterday Neuro-alert and awake, moves extremities ASSESSMENT & PLAN: SYNCOPE resolved (patient was in the ED for evaluation of BL foot pain and left toe ulcer and was while in triage, patient became hypotensive, diaphoretic, and subsequently passed out poor appetite, most likely syncope was vaso vagal due to foot pain and/or orthostasis from volume depletion from poor PO intake) LEFT GREAT TOE ULCER/gangrene, PAD on IV heparin as INR for bilateral superficial femoral artery occlusion and bilateral infra popliteal artery occlusive disease was sub therapeutic Vascular surgery consulted and s/p aortogram / patient to undergo LLE femoral - peroneal artery transposed in situ bypass using LLE GSV and RLE SSV composite graft on Wednesday09/24/17 Continue heparin drip up prior to the vascular surgery wound care consult started on Zosyn and Vancomycin on 09/18/17 because wound culture was coag neg staph Zosyn stopped on 09/21/17 Vancomycin to be given until at least vascular procedure day on 09/24/17 Hypotonic Hyponatremia may be due to poor oral intake thyroid function test checked, clinically is euthyroid patient's serum sodium from admission increased after IV fluids, however subsequently coming down, is now on IV fluids 75 cc/hr of normal saline and continue fluids up to day of vascular procedure Serum sodium is 129 today CAD history on ASA, Plavix, statin, and ACEi 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
[2017-09-24] MEDS ORDERED: NURSING VERBAL MED ORDER ONE (09:15)
[2017-09-24] MEDS ORDERED: ONDANSETRON INJ 2 MG/ML 2 ML VIAL ONE (09:26)
[2017-09-24] MEDS ORDERED: GLYCOPYRROLATE INJ 0.2 MG/ML VIAL ONE (09:26)
[2017-09-24] MEDS ORDERED: FENTANYL CITRATE INJ 50 MCG/1 ML 2 ML VIAL ONE ×3 (09:26→16:36)
[2017-09-24] MEDS ORDERED: MIDAZOLAM HCL 1 MG/ML 2ML VIAL ONE (09:26)
[2017-09-24] MEDS ORDERED: LIDOCAINE HCL 2% 2 ML VIAL (20MG/ML) ONE (09:26)
[2017-09-24] MEDS ORDERED: NEOSTIGMINE METHYLSULFATE 5 MG/5 ML SYR ONE (09:26)
[2017-09-24] MEDS ORDERED: PROPOFOL IV EMULSION 10 MG/ML 20 ML VIAL IV ONE (09:26)
[2017-09-24] MEDS ORDERED: CISATRACURIUM BESYLATE IV SOLN 2 MG/ML 10 ML VIAL ONE (09:26)
--- NOTE | 2017-09-24 09:53 | History and Physical ---
History & Physical Date of Service Sep 24, 2017. History & Physical Patient for left leg bypass surgery. I have discussed the risks options and benefits of the procedure with the patient. The patient understands the risks options and benefits and agrees to the procedure. I have examined the patient, reviewed the History & Physical and in the interval since the performance of the History & Physical I have noted the following changes of clinical significance: No changes noted
[2017-09-24] MEDS ORDERED: GELATIN SPONGE SZ 100 ONE (10:18)
[2017-09-24] MEDS ORDERED: PAPAVERINE HCL INJ 30 MG/ML 2 ML VIAL ONE (10:18)
[2017-09-24] MEDS ORDERED: THROMBIN 5000 UNITS KIT ONE (10:18)
[2017-09-24] MEDS ORDERED: BUPIVACAINE/EPINEPHRINE 0.5% MPF 1:200,000 30 ML VIAL ONE (10:18)
[2017-09-24] MEDS ORDERED: LIDOCAINE HCL 1% 20 ML VIAL ONE (10:18)
[2017-09-24] MEDS ORDERED: CEFAZOLIN SOD 1 GM VIAL ONE ×2 (10:19→14:22)
[2017-09-24] MEDS ORDERED: HEPARIN SOD (PORCINE) 1000 UNIT/ML 10 ML VIAL ONE ×2 (10:19→14:22)
[2017-09-24] MEDS ORDERED: PHENYLEPHRINE HCL INJ 10 MG/ML VIAL ONE (13:51)
[2017-09-24] MEDS ORDERED: LABETALOL HCL IV 5 MG/ML 20ML IV PRN (15:00)
[2017-09-24] MEDS ORDERED: ATROPINE SULFATE 0.1 MG/ML 5ML SYR IV PRN (15:00)
[2017-09-24] MEDS ORDERED: FENTANYL CITRATE INJ 50 MCG/1 ML 2 ML VIAL IV PRN (15:00)
[2017-09-24] MEDS ORDERED: NALOXONE HCL 0.4 MG/1 ML VIAL/CARP IV PRN (15:00)
[2017-09-24] MEDS ORDERED: PROMETHAZINE HCL INJ 12.5 MG in SODIUM CHLORIDE 0.9% 50ML 50 ML IV PRN (15:00)
[2017-09-24] MEDS ORDERED: EpHEDrine SULFATE INJ 50 MG/ML AMP IV PRN (15:00)
[2017-09-24] MEDS ORDERED: ONDANSETRON INJ 2 MG/ML 2 ML VIAL IV PRN ×2 (15:00→16:15)
[2017-09-24] MEDS ORDERED: ESMOLOL HCL 10 MG/ML 10 ML VIAL ONE (15:05)
[2017-09-24] MEDS ORDERED: D5W AND 1/2NSS 1,000 ML IV SCH (16:15)
--- NOTE | 2017-09-24 16:15 | [facility] Post Operative Brief Note ---
Immediate Operative Summary Operative Date Sep 24, 2017. Pre-Operative Diagnosis Gangrene of Toes on Both Feet, Peripheral Artery Disease Post-Operative Diagnosis Gangrene of Toes on Both Feet, Peripheral Artery Disease Procedure(s) Performed Left Femoral to Peroneal Composite Bypass; Harvesting of Right Lesser Saphenous Vein; Stenting of femoral peroneal bypass Surgeon Dr. Abhijeet Hussein Travel [facility] Surgeon(s) Sara Rodriguez PA-C, Rachelle Lyn Estimated Blood Loss 150 ml Findings outflow to foot via collaterals Specimens None per surgeon Anesthesia Gen Complication(s) None Disposition Recovery Room / PACU
[2017-09-24] MEDS ORDERED: IODIXANOL (VISIPAQUE) 270 MG/ML 50ML FLUSH ONE (16:32)
[2017-09-24] MEDS ORDERED: BOOST VANILLA PO SCH (17:00)
[2017-09-24 17:35] LABS: BASO % 0.1 %; BASO ABS # 0.02 K/uL (0-0.2); EOS % 0.9 %; EOS ABS # 0.13 K/uL (0-0.5); HEMATOCRIT 26.1 % (42-52); HEMOGLOBIN 9.2 g/dL (14.0-18.0); IG# 0.04 K/uL (0.00-0.02); LYMPH % 9.9 %; LYMPH ABS # 1.38 K/uL (1.2-3.4); MEAN CELL VOLUME 91.9 fL (80-100); MEAN CORPUSCULAR HEMOGLOBIN 32.4 pg (25-34); MEAN CORPUSCULAR HGB CONC 35.2 g/dl (32-36); MEAN PLATELET VOLUME 8.9 fL (7.4-10.4); MONO % 6.8 %; MONO ABS # 0.94 K/uL (0.11-0.59); NEUT ABS # 11.38 K/uL (1.4-6.5); PLATELET COUNT 265 K/uL (130-400); RED CELL DISTRIBUTION WIDTH CV 14.7 % (11.5-14.5); RED CELL DISTRIBUTION WIDTH SD 49.7 fL (36.4-46.3); WHITE BLOOD COUNT 13.89 K/uL (4.8-10.8)
--- NOTE | 2017-09-24 17:38 | Anesthesiology Progress Note ---
Anesthesia Post Op Note Date & Time Sep 24, 2017 at 17:37 Vital Signs Pain Intensity: 0.0 Vital Signs Past 12 Hours Date Time Temp Pulse Resp B/P (MAP) Pulse Ox O2 Delivery O2 Flow Rate FiO2 09/24/17 10:31 36.6 69 18 129/62 (84) 96 Room Air 09/24/17 08:00 Room Air 09/24/17 07:53 36.6 85 18 121/65 (83) 92 Room Air Notes Mental Status: alert / awake / arousable, participated in evaluation Pt Amnestic to Procedure: Yes Nausea / Vomiting: adequately controlled Pain: adequately controlled Airway Patency, RR, SpO2: stable & adequate BP & HR: stable & adequate Hydration State: stable & adequate Anesthetic Complications: no major complications apparent
[2017-09-24 17:56] LABS: CALCIUM 7.5 mg/dl (8.5-10.1); CREATININE 0.78 mg/dl (0.60-1.40)
[2017-09-24] MEDS: MoRPHine SULFATE 4 MG/ML 1 ML CARP\\VIAL IV PRN (18:00)
[2017-09-24] MEDS: CEFAZOLIN IV 1,000 MG in SYRINGE 0 ML IV SCH (18:01)
[2017-09-24] MEDS ORDERED: HYDROmorphone INJ 2 MG/ML SYR/VIAL ONE (18:41)
--- NOTE | 2017-09-24 18:42 | Critical Care Consultation ---
Critical Care Consultation Date of Consultation: Sep 24, 2017. Attending Physician: Mihir Rees M.D. Reason for Consultation: Ischemic limb History of Present Illness Dear Dr. Ziegler: Thank you for your kind referral of Mr. Doty to critical care service. This is a 72-year-old gentleman with history of COPD, venous thromboembolic event a month ago, history of peripheral arterial disease presented to the hospital with severe leg pain bilaterally. The patient did have ischemic foot bilaterally. The patient was taken to the OR by Dr. Ziegler and underwent femoropopliteal graft. The patient was sent after the OR to the ICU for further monitoring due to severe pain. The patient was not intubated answering questions but appeared to be in agonal distress due to the pain. The patient received 2 doses of morphine. He denies any shortness of breath or chest pain. No nausea no abdominal pain. The pain mainly in the foot but not in the groin or in the leg itself. The rest of his review of system was limited due to the patient being in pain. Family History Patient reports no known family medical history. Social History Smoking Status: Current Every Day Smoker Alcohol Use: occasionally Housing Status: lives alone Allergies Coded Allergies: No Known Allergies (Unverified , 09/16/17) Home Medications Scheduled Aspirin (Aspirin Ec), 81 MG PO DAILY Atorvastatin (Lipitor), 80 MG PO DAILY Calcium/Vitamin D (Os-[place] 500 Plus D), 1 TAB PO BID Clopidogrel (Plavix), 75 MG PO DAILY Cyanocobalamin (Vitamin B-12), 1,000 MCG PO DAILY Enalapril (Vasotec), 5 MG PO DAILY Ferrous Sulfate (Kp Ferrous Sulfate), 325 TAB PO BID Folic Acid (Folvite), 1 MG PO DAILY Gabapentin (Neurontin), 100 MG PO TID Magnesium Oxide (Mag-Ox), 400 MG PO BID Multivitamins/Minerals (Mvi With Minerals), 1 TAB PO DAILY Nutritional Supplements (Boost), 1 CAN PO BID Ranitidine (Zantac), 150 MG PO DAILY Sertraline (Zoloft), 50 MG PO DAILY Thiamine Hcl (Vitamin B-1), 50 MG PO DAILY Warfarin Sod (Jantoven), 2 MG PO DAILY@1600 Scheduled PRN Acetaminophen (Tylenol), 650 MG PO Q6 PRN for Pain or Fever Magnesium Hydroxide (Milk of Magnesia), 30 ML PO DAILY PRN for Constipation Current Inpatient Medications Current Inpatient Medications Medications (Trade) Dose Ordered Sig/Nieves Route Start Time Stop Time Status Last Admin Dose Admin Acetaminophen (Tylenol Tab) 650 mg Q4H PRN PO 09/16/17 14:30 10/16/17 14:29 09/23/17 15:24 650 MG Aspirin (Ecotrin Tab) 81 mg DAILY PO 09/17/17 09:00 10/17/17 08:59 09/24/17 07:35 81 MG Atorvastatin Calcium (Lipitor Tab) 80 mg DAILY PO 09/17/17 09:00 10/17/17 08:59 09/23/17 08:16 80 MG Calcium/Vitamin D (Caltrate Plus Tab) 1 tab BID PO 09/16/17 21:00 10/16/17 20:59 09/23/17 19:39 1 TAB Clopidogrel Bisulfate (plAVix TAB) 75 mg DAILY PO 09/17/17 09:00 10/17/17 08:59 09/23/17 08:17 75 MG Cyanocobalamin (Vitamin B-12 Tab) 1,000 mcg DAILY PO 09/17/17 09:00 10/17/17 08:59 09/23/17 08:17 1,000 MCG Enalapril Maleate (Vasotec Tab) 5 mg DAILY PO 09/17/17 09:00 10/17/17 08:59 09/24/17 07:36 5 MG Folic Acid (Folvite Tab) 1 mg DAILY PO 09/17/17 09:00 10/17/17 08:59 09/23/17 08:18 1 MG Gabapentin (Neurontin Cap) 100 mg TID PO 09/16/17 21:00 10/16/17 20:59 09/24/17 07:36 100 MG Magnesium Oxide (Mag-Ox Tab) 400 mg BID PO 09/16/17 21:00 10/16/17 20:59 09/23/17 19:39 400 MG Multivitamins/ Minerals (Multivitamin W/ Minerals Tab) 1 tab DAILY PO 09/17/17 09:00 10/17/17 08:59 09/23/17 08:15 1 TAB Ranitidine HCl (zANTac TAB) 150 mg DAILY PO 09/17/17 09:00 10/17/17 08:59 09/23/17 08:16 150 MG Sertraline HCl (Zoloft Tab) 50 mg DAILY PO 09/17/17 09:00 10/17/17 08:59 09/24/17 07:36 50 MG Thiamine HCl (Vitamin B-1 Tab) 50 mg DAILY PO 09/17/17 09:00 10/17/17 08:59 09/23/17 08:16 50 MG Ferrous Sulfate (Feosol Tab) 325 mg BID PO 09/16/17 21:00 10/16/17 20:59 09/23/17 19:40 325 MG Nicotine (Nicoderm Cq 14MG Patch) 1 patch QAM TD 09/20/17 09:00 10/20/17 08:59 09/24/17 07:36 1 PATCH Miscellaneous (Remove Nicoderm Patch) 1 ea HS N/A 09/19/17 21:00 10/19/17 20:59 09/23/17 19:38 1 EA Sodium Chloride 1,000 ml @ 75 mls/hr [id number] IV 09/23/17 15:30 10/23/17 15:29 09/24/17 18:00 75 MLS/HR Enteral Nutritional Formula (Boost) 1 can BIDM PO 09/24/17 17:00 10/24/17 16:59 Fentanyl Citrate (Fentanyl Inj) 25 mcg Q5M PRN IV 09/24/17 15:00 09/24/17 20:00 Naloxone HCl (Narcan Inj) 0.2 mg Q2M PRN IV 09/24/17 15:00 09/24/17 20:00 Ondansetron HCl (Zofran Inj) 4 mg ONE PRN IV 09/24/17 15:00 09/24/17 20:00 Promethazine HCl 12.5 mg/Sodium Chloride 50.5 ml @ 202 mls/hr ONE PRN IV 09/24/17 15:00 09/24/17 20:00 Labetalol HCl (Normodyne IV) 5 mg Q5M PRN IV 09/24/17 15:00 09/24/17 20:00 Ephedrine Sulfate (EpHEDrine SULFATE INJ) 5 mg Q5M PRN IV 09/24/17 15:00 09/24/17 20:00 Atropine Sulfate (Atropine Sulfate 0.1MG/Ml Inj) 0.5 mg Q1M PRN IV 09/24/17 15:00 09/24/17 20:00 Oxycodone/ Acetaminophen (Percocet 5-325mg Tab) `1-2 TABS FOR MODER... Q4H PRN PO 09/24/17 16:15 10/08/17 16:14 Morphine Sulfate (MoRPHine SULFATE INJ) If PO analgesic is orde... Q2H PRN IV 09/24/17 16:15 10/08/17 16:14 09/24/17 18:00 4 MG Ondansetron HCl (Zofran Inj) 4 mg Q6H PRN IV 09/24/17 16:15 10/24/17 16:14 Pantoprazole Sodium 40 mg/ Syringe 10 ml @ 5 mls/min DAILY@11 IV 09/25/17 11:00 09/28/17 23:59 Dextrose/Sodium Chloride 1,000 ml @ 125 mls/hr Q8H IV 09/24/17 16:15 09/25/17 00:14 Heparin Sodium/ Dextrose 1 ea NOW ONCE N/A 09/24/17 20:15 09/24/17 20:16 Cefazolin Sodium 1000 mg/Syringe 5 ml @ 1.667 mls/ min Q8H IV 09/24/17 17:30 09/25/17 01:32 09/24/17 18:01 1.667 MLS/MIN Heparin Sodium/ Dextrose 500 ml @ 23 mls/hr [id number] PRN IV 09/24/17 20:15 10/24/17 20:14 Review of Systems Constitutional: No fever, No chills, No sweats, No weight loss, No weakness, No fatigue, No problem reported ENT: No hearing loss, No unusual epistaxis, No nasal symptoms, No sore throat, No tinnitus, No dental problems, No trouble swallowing, No problem reported Respiratory: No cough, No sputum, No wheezing, No shortness of breath, No dyspnea on exertion, No dyspnea at rest, No hemoptysis, No problem reported Cardiovascular: No chest pain, No orthopnea, No PND, No edema, No claudication , No palpitations, No problem reported Abdomen: No pain, No nausea, No vomiting, No diarrhea, No constipation, No GI bleeding, No problem reported Musculoskeletal: + problem reported (bilateral foot pain severe 10 out of 10 according to patient. Left greater than right.) Genitourinary - Male: No hematuria, No dysuria, No urinary frequency, No urinary urgency, No urinary hesitancy, No urinary retention, No urinary incontinence, No penile discharge, No lesions, No impotence, No problem reported Neurologic: No memory loss, No paralysis, No weakness, No numbness/tingling, No vertigo, No balance problems, No problem reported Psychiatric: No depression symptoms, No anhedonism, No anxiety, No insomnia, No substance abuse, No problem reported Physical Exam Date Time Temp Pulse Resp B/P (MAP) Pulse Ox O2 Delivery O2 Flow Rate FiO2 09/24/17 17:46 36.2 58 14 120/67 99 Room Air 09/24/17 17:34 36.2 62 16 127/62 100 Oxymask 10 09/24/17 17:20 36.2 62 16 127/61 100 Oxymask 10 61 09/24/17 10:31 36.6 69 18 129/62 (84) 96 Room Air 09/24/17 08:00 Room Air 09/24/17 07:53 36.6 85 18 121/65 (83) 92 Room Air 09/24/17 00:00 94 Room Air 09/23/17 23:40 37.0 66 18 109/65 (80) 94 Room Air 09/23/17 20:00 Room Air General Appearance: uncomfortable Eyes: PERRLA, EOMI ENT: normal mouth exam, other Neck: no tenderness Respiratory: breath sounds normal Cardiovasular: regular rate/rhythm, normal S1S2, no M/G/R, no murmur Abdomen: non tender, normal bowel sounds, no rebound, no masses Upper Extremities: no edema Lower Extremities: other (ischemic foot bilaterally. Postop changes.) Neuro: alert, oriented x 3 Psychiatric: normal affect Laboratory Results Last 24 Hours Test 09/24/17 06:08 09/24/17 07:50 09/24/17 17:25 White Blood Count 7.55 K/uL 13.89 K/uL Red Blood Count 3.43 M/uL 2.84 M/uL Hemoglobin 10.9 g/dL 9.2 g/dL Hematocrit 31.3 % 26.1 % Mean Corpuscular Volume 91.3 fL 91.9 fL Mean Corpuscular Hemoglobin 31.8 pg 32.4 pg Mean Corpuscular Hemoglobin Concent 34.8 g/dl 35.2 g/dl Platelet Count 299 K/uL 265 K/uL Mean Platelet Volume 9.4 fL 8.9 fL Neutrophils (%) (Auto) 66.6 % 82.0 % Lymphocytes (%) (Auto) 19.1 % 9.9 % Monocytes (%) (Auto) 8.6 % 6.8 % Eosinophils (%) (Auto) 5.2 % 0.9 % Basophils (%) (Auto) 0.4 % 0.1 % Neutrophils # (Auto) 5.03 K/uL 11.38 K/uL Lymphocytes # (Auto) 1.44 K/uL 1.38 K/uL Monocytes # (Auto) 0.65 K/uL 0.94 K/uL Eosinophils # (Auto) 0.39 K/uL 0.13 K/uL Basophils # (Auto) 0.03 K/uL 0.02 K/uL RDW Standard Deviation 48.7 fL 49.7 fL RDW Coefficient of Variation 14.6 % 14.7 % Immature Granulocyte % (Auto) 0.1 % 0.3 % Immature Granulocyte # (Auto) 0.01 K/uL 0.04 K/uL Activated Partial Thromboplast Time 40.5 SECONDS Partial Thromboplastin Ratio 1.6 Sodium Level 129 mmol/L 131 mmol/L Potassium Level 4.0 mmol/L 4.0 mmol/L Chloride Level 97 mmol/L 101 mmol/L Carbon Dioxide Level 26 mmol/L 22 mmol/L Anion Gap 6.0 mmol/L 8.0 mmol/L Blood Urea Nitrogen 2 mg/dl 4 mg/dl Creatinine 0.83 mg/dl 0.78 mg/dl Est Creatinine Clear Calc Drug Dose 75.3 ml/min 80.1 ml/min Estimated GFR () 102.6 105.3 Estimated GFR (Non- 88.5 90.8 BUN/Creatinine Ratio 2.5 4.9 Random Glucose 83 mg/dl 125 mg/dl Calcium Level 8.6 mg/dl 7.5 mg/dl Bedside Glucose 100 mg/dl Assessment & Plan #1 peripheral arterial disease with ischemic foot status post femoropopliteal. #2 COPD active smoker. #3 venous thromboembolic event recently. Treated with Coumadin, currently off anticoagulations. #4 severe lower extremity pain secondary to peripheral artery disease. Plan: #1 we'll monitor in the ICU. #2 continue with morphine. #3 I took the liberty to give the patient 2 doses of Dilaudid due to the pain that has been excruciating regardless of the morphine given. #4 continue with bronchodilators. #5 nicotine patch. #6 and to evaluation when possible. #[address] Ziegler. #8 labs were reviewed personally. Critical care time spent with the patient including discussion with the staff was 35 minutes.
[2017-09-25] VITALS (34 sets, daily range): BP systolic 88–130; BP diastolic 46–104; PULSE 66–94; TEMP 36.4–37; O2SAT 95–99
[2017-09-25] MEDS: CEFAZOLIN IV 1,000 MG in SYRINGE 0 ML IV SCH (01:30)
[2017-09-25 02:57] LABS: PTT PATIENT 54.8 SECONDS (21.0-31.0)
[2017-09-25 06:05] LABS: BASO % 0.4 %; BASO ABS # 0.03 K/uL (0-0.2); EOS % 1.2 %; EOS ABS # 0.08 K/uL (0-0.5); HEMATOCRIT 24.2 % (42-52); HEMOGLOBIN 8.3 g/dL (14.0-18.0); IG# 0.02 K/uL (0.00-0.02); LYMPH % 17.7 %; LYMPH ABS # 1.22 K/uL (1.2-3.4); MEAN CELL VOLUME 93.1 fL (80-100); MEAN CORPUSCULAR HEMOGLOBIN 31.9 pg (25-34); MEAN CORPUSCULAR HGB CONC 34.3 g/dl (32-36); MEAN PLATELET VOLUME 9.6 fL (7.4-10.4); MONO % 10.7 %; MONO ABS # 0.74 K/uL (0.11-0.59); NEUT % 69.7 %; PLATELET COUNT 294 K/uL (130-400); RED CELL DISTRIBUTION WIDTH CV 14.9 % (11.5-14.5); RED CELL DISTRIBUTION WIDTH SD 50.5 fL (36.4-46.3); WHITE BLOOD COUNT 6.89 K/uL (4.8-10.8)
[2017-09-25 06:19] LABS: INR 1.1 (0.9-1.1)
[2017-09-25 06:32] LABS: CALCIUM 7.9 mg/dl (8.5-10.1); CREATININE 0.92 mg/dl (0.60-1.40); POTASSIUM 4.3 mmol/L (3.5-5.1)
[2017-09-25 06:35] LABS: PTT PATIENT 62.5 SECONDS (21.0-31.0)
[2017-09-25] MEDS: BOOST VANILLA PO SCH ×2 (07:32→17:52)
[2017-09-25] MEDS: SODIUM CHLORIDE 0.9% 1000ML 1,000 ML IV SCH ×2 (07:33→19:55)
[2017-09-25] MEDS: ASPIRIN 81 MG ECTAB PO SCH (07:34)
[2017-09-25] MEDS: SERTRALINE HCL 50 MG TAB PO SCH (07:35)
[2017-09-25] MEDS: ATORVASTATIN 40 MG TAB PO SCH (07:35)
[2017-09-25] MEDS: ENALAPRIL MALEATE 5 MG TAB PO SCH (07:35)
[2017-09-25] MEDS: FERROUS SULFATE 325 MG TAB PO SCH ×2 (07:35→20:42)
[2017-09-25] MEDS: MAGNESIUM OXIDE 400 MG TAB PO SCH ×2 (07:35→20:41)
[2017-09-25] MEDS: CYANOCOBALAMIN 500 MCG TAB (VIT B-12) PO SCH (07:35)
[2017-09-25] MEDS: CALCIUM 600MG + VIT D 400 IU TAB PO SCH ×2 (07:36→20:41)
[2017-09-25] MEDS: GABAPENTIN 100 MG CAP PO SCH ×3 (07:36→20:40)
[2017-09-25] MEDS: NICOTINE 14 MG/24 HR TDSY TD SCH (07:36)
[2017-09-25] MEDS: CLOPIDOGREL BISULFATE 75 MG TAB PO SCH (07:36)
[2017-09-25] MEDS: RANITIDINE HCL 150 MG TAB PO SCH (07:36)
[2017-09-25] MEDS: THIAMINE HCL 50 MG TAB PO SCH (07:37)
[2017-09-25] MEDS: CEROVITE ADV FORMULA TAB PO SCH (07:37)
[2017-09-25] MEDS: MoRPHine SULFATE 4 MG/ML 1 ML CARP\\VIAL IV PRN (08:08)
--- NOTE | 2017-09-25 09:04 | Progress Note ---
Progress Note Date of Service: Sep 25, 2017. Subjective No complaints of foot pain Problem List Medical Problems: (1) Change in mental status Status: Acute (2) Closed fracture of neck of left humerus Status: Acute (3) Dehydration Status: Acute (4) Dehydration Status: Acute (5) History of alcohol abuse Status: Chronic (6) Leukocytosis Status: Acute (7) Multiple contusions Status: Acute (8) STEMI (ST elevation myocardial infarction) Status: Acute (9) STEMI (ST elevation myocardial infarction) Status: Acute (10) UTI (urinary tract infection) Status: Acute Objective Vital Signs Vital Signs Past 12 Hours Date Time Temp Pulse Resp B/P (MAP) Pulse Ox O2 Delivery O2 Flow Rate FiO2 09/25/17 06:01 37.0 69 20 105/52 (69) 98 Room Air 09/25/17 05:46 81 20 94/49 (64) 97 Room Air 09/25/17 05:31 75 17 98/54 (69) 99 Room Air 09/25/17 05:16 78 16 101/55 (70) 98 Room Air 09/25/17 05:01 74 17 90/ (30) 97 Room Air 09/25/17 04:46 71 14 96/50 (65) 97 Room Air 09/25/17 04:38 98 Room Air 09/25/17 04:31 72 24 99/53 (68) 97 Room Air 09/25/17 04:18 72 20 96/50 (65) 97 Room Air 09/25/17 04:16 72 15 96/50 (65) 97 Room Air 09/25/17 04:01 36.8 73 20 99/46 (63) 97 Room Air 09/25/17 03:01 77 15 112/57 (75) 97 Room Air 09/25/17 02:46 92 20 104/60 (75) 97 Room Air 09/25/17 02:31 73 15 92/50 (64) 97 Room Air 09/25/17 02:16 75 22 119/59 (79) 98 Room Air 09/25/17 02:01 36.4 73 17 106/49 (68) 96 Room Air 09/25/17 01:46 94 18 109/56 (73) 99 Room Air 09/25/17 01:31 80 19 109/57 (74) 98 Room Air 09/25/17 01:16 71 17 100/53 (69) 97 Room Air 09/25/17 01:01 88 17 126/104 (111) 98 Room Air 09/25/17 00:31 75 17 114/61 (78) 98 Room Air 09/25/17 00:24 98 Room Air 09/25/17 00:16 75 17 100/53 (69) 98 Room Air 09/25/17 00:12 36.4 77 21 96/55 (69) 95 Room Air 09/24/17 23:46 88 108/70 (83) 96 Room Air 09/24/17 23:31 71 89/46 (60) 97 Room Air 09/24/17 23:16 70 102/43 (62) 98 Room Air 09/24/17 23:01 71 100/48 (65) 97 Room Air 09/24/17 21:16 79 102/58 (73) 98 Room Air Exam VSS Afebrile Dressings intact Excellent left peroneal doppler signal Left great toe and 2nd toe demarcating. Laboratory and Microbiology Results Past 24 Hours Test 09/24/17 17:25 09/24/17 21:36 09/25/17 02:18 09/25/17 05:34 Range/Units White Blood Count 13.89 6.89 4.8-10.8 K/uL Red Blood Count 2.84 2.60 4.7-6.1 M/uL Hemoglobin 9.2 8.3 14.0-18.0 g/dL Hematocrit 26.1 24.2 42-52 % Mean Corpuscular Volume 91.9 93.1 80-100 fL Mean Corpuscular Hemoglobin 32.4 31.9 25-34 pg Mean Corpuscular Hemoglobin Concent 35.2 34.3 32-36 g/dl Platelet Count 265 294 130-400 K/uL Mean Platelet Volume 8.9 9.6 7.4-10.4 fL Neutrophils (%) (Auto) 82.0 69.7 % Lymphocytes (%) (Auto) 9.9 17.7 % Monocytes (%) (Auto) 6.8 10.7 % Eosinophils (%) (Auto) 0.9 1.2 % Basophils (%) (Auto) 0.1 0.4 % Neutrophils # (Auto) 11.38 4.80 1.4-6.5 K/uL Lymphocytes # (Auto) 1.38 1.22 1.2-3.4 K/uL Monocytes # (Auto) 0.94 0.74 0.11-0.59 K/uL Eosinophils # (Auto) 0.13 0.08 0-0.5 K/uL Basophils # (Auto) 0.02 0.03 0-0.2 K/uL RDW Standard Deviation 49.7 50.5 36.4-46.3 fL RDW Coefficient of Variation 14.7 14.9 11.5-14.5 % Immature Granulocyte % (Auto) 0.3 0.3 % Immature Granulocyte # (Auto) 0.04 0.02 0.00-0.02 K/uL Sodium Level 131 136-145 mmol/L Potassium Level 4.0 3.5-5.1 mmol/L Chloride Level 101 98-107 mmol/L Carbon Dioxide Level 22 21-32 mmol/L Anion Gap 8.0 3-11 mmol/L Blood Urea Nitrogen 4 7-18 mg/dl Creatinine 0.78 0.60-1.40 mg/dl Est Creatinine Clear Calc Drug Dose 80.1 ml/min Estimated GFR () 105.3 Estimated GFR (Non- 90.8 BUN/Creatinine Ratio 4.9 10-20 Random Glucose 125 70-99 mg/dl Calcium Level 7.5 8.5-10.1 mg/dl Bedside Glucose 128 70-99 mg/dl Activated Partial Thromboplast Time 54.8 62.5 21.0-31.0 SECONDS Partial Thromboplastin Ratio 2.1 2.4 Red Blood Cell Morphology Unremarkable Prothrombin Time 11.9 9.0-12.0 SECONDS Prothromb Time International Ratio 1.1 0.9-1.1 Test 09/25/17 05:55 Range/Units Sodium Level 130 136-145 mmol/L Potassium Level 4.3 3.5-5.1 mmol/L Chloride Level 100 98-107 mmol/L Carbon Dioxide Level 25 21-32 mmol/L Anion Gap 5.0 3-11 mmol/L Blood Urea Nitrogen 5 7-18 mg/dl Creatinine 0.92 0.60-1.40 mg/dl Est Creatinine Clear Calc Drug Dose 69.0 ml/min Estimated GFR () 96.6 Estimated GFR (Non- 83.4 BUN/Creatinine Ratio 5.4 10-20 Random Glucose 108 70-99 mg/dl Calcium Level 7.9 8.5-10.1 mg/dl Microbiology Results 09/24/17 MRSA DNA Surveillance Screen - Final, Complete Specimen Negative for MRSA by DNA Probe Imp: Post left leg revasc Plan: Doing well. Pressure slightly on low side with hgb of 8.3. Will transfuse one unit. Transfer to floor. Start OT/PT. Will most likely need great toe and 2nd toe amp this week of the left foot.
[2017-09-25] MEDS: OXYCODONE/ACETAMINOPHEN 5-325 TAB PO PRN ×2 (09:07→20:43)
[2017-09-25] MEDS: PANTOprazole INJ 40 MG in SYRINGE 0 ML IV SCH (12:44)
--- NOTE | 2017-09-25 13:11 | Progress Note ---
Internal Med Progress Note Date of Service: Sep 25, 2017. Provider Documentation: SUBJECTIVE: Patient seen and examined at bedside in the ICU for which he was in recovery after vascular procedure and afterwards today on the medical louis. Patient denies acute pain. He is s/p 1 unit of PRBC as ordered by Dr. Hussein for anemia from postsurgical blood loss. 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 Hussein, IV heparin continued after left leg revascularization on as he expects that patient will require further surgical procedures (most likely need great toe and 2nd toe amp this week of the left foot) Will not restart Coumadin at this time S/p 1 unit of PRBC on 09/25/[address] Hussein for anemia from postsurgical blood loss and low blood pressure Recheck CBC History of syncope on admission in the ED on admission due to vaso vagal etiology of foot pain and/or orthostasis from volume depletion from poor PO intake S/P left leg revascularization: will hold lisinopril for now and continue with IV fluids to ensure adequate MAP above 60 Hypotonic Hyponatremia may be due to poor oral intake thyroid function test checked, clinically is euthyroid patient's serum sodium from admission increased after IV fluids, but would decrease when Iv fluids held, is now on IV fluids 75 cc/hr of normal saline still for blood pressure reasons for now CAD history: continue on ASA, Plavix, statin. lisinopril held for now while monitoring for low blood pressure Antibiotics to date started on Zosyn and Vancomycin on 09/18/17 because wound culture was coag neg staph Zosyn stopped on 09/21/17 Vancomycin given until vascular procedure day on 09/24/17 Cefazolin given preop and postop on 09/24/17 Hold off further antibiotics for now DVT PROPHYLAXIS on Heparin IV Vital Signs: Date Time Temp Pulse Resp B/P (MAP) Pulse Ox O2 Delivery O2 Flow Rate FiO2 09/25/17 12:36 36.6 69 16 112/61 96 09/25/17 11:32 36.6 66 15 93/54 96 09/25/17 10:36 36.6 72 17 100/61 95 09/25/17 10:20 Room Air 09/25/17 10:15 36.8 77 16 96/48 98 09/25/17 10:13 36.7 77 18 95 09/25/17 09:45 36.7 88 16 88/59 96 09/25/17 09:27 36.7 77 18 104/51 95 09/25/17 08:00 Room Air 09/25/17 08:00 37.0 79 16 130/63 (85) 97 Room Air 09/25/17 06:01 37.0 69 20 105/52 (69) 98 Room Air 09/25/17 05:46 81 20 94/49 (64) 97 Room Air 09/25/17 05:31 75 17 98/54 (69) 99 Room Air 09/25/17 05:16 78 16 101/55 (70) 98 Room Air 09/25/17 05:01 74 17 90/ (30) 97 Room Air 09/25/17 04:46 71 14 96/50 (65) 97 Room Air 09/25/17 04:38 98 Room Air 09/25/17 04:31 72 24 99/53 (68) 97 Room Air 09/25/17 04:18 72 20 96/50 (65) 97 Room Air 09/25/17 04:16 72 15 96/50 (65) 97 Room Air 09/25/17 04:01 36.8 73 20 99/46 (63) 97 Room Air 09/25/17 03:01 77 15 112/57 (75) 97 Room Air 09/25/17 02:46 92 20 104/60 (75) 97 Room Air 09/25/17 02:31 73 15 92/50 (64) 97 Room Air 09/25/17 02:16 75 22 119/59 (79) 98 Room Air 09/25/17 02:01 36.4 73 17 106/49 (68) 96 Room Air 09/25/17 01:46 94 18 109/56 (73) 99 Room Air 09/25/17 01:31 80 19 109/57 (74) 98 Room Air 09/25/17 01:16 71 17 100/53 (69) 97 Room Air 09/25/17 01:01 88 17 126/104 (111) 98 Room Air 09/25/17 00:31 75 17 114/61 (78) 98 Room Air 09/25/17 00:24 98 Room Air 09/25/17 00:16 75 17 100/53 (69) 98 Room Air 09/25/17 00:12 36.4 77 21 96/55 (69) 95 Room Air 09/24/17 23:46 88 108/70 (83) 96 Room Air 09/24/17 23:31 71 89/46 (60) 97 Room Air 09/24/17 23:16 70 102/43 (62) 98 Room Air 09/24/17 23:01 71 100/48 (65) 97 Room Air 09/24/17 21:16 79 102/58 (73) 98 Room Air 09/24/17 21:01 70 17 120/48 (72) 98 Room Air 09/24/17 20:46 81 93/55 (68) 98 Room Air 09/24/17 20:31 69 97/60 (72) 98 Room Air 09/24/17 20:00 36.2 90 18 105/58 (74) 96 Room Air 09/24/17 20:00 Room Air 09/24/17 19:30 68 111/42 (65) 96 Room Air 09/24/17 19:00 65 17 110/37 (61) 93 Room Air 09/24/17 18:46 64 100/37 (58) 94 09/24/17 18:45 62 105/37 (59) 97 Room Air 09/24/17 18:31 112/52 (72) 09/24/17 17:46 36.2 58 14 120/67 99 Room Air 09/24/17 17:34 36.2 62 16 127/62 100 Oxymask 10 09/24/17 17:20 36.2 62 16 127/61 100 Oxymask 10 61 Lab Results: Results Past 24 Hours Test 09/24/17 17:25 09/24/17 21:36 09/25/17 02:18 09/25/17 05:34 Range/Units White Blood Count 13.89 6.89 4.8-10.8 K/uL Red Blood Count 2.84 2.60 4.7-6.1 M/uL Hemoglobin 9.2 8.3 14.0-18.0 g/dL Hematocrit 26.1 24.2 42-52 % Mean Corpuscular Volume 91.9 93.1 80-100 fL Mean Corpuscular Hemoglobin 32.4 31.9 25-34 pg Mean Corpuscular Hemoglobin Concent 35.2 34.3 32-36 g/dl Platelet Count 265 294 130-400 K/uL Mean Platelet Volume 8.9 9.6 7.4-10.4 fL Neutrophils (%) (Auto) 82.0 69.7 % Lymphocytes (%) (Auto) 9.9 17.7 % Monocytes (%) (Auto) 6.8 10.7 % Eosinophils (%) (Auto) 0.9 1.2 % Basophils (%) (Auto) 0.1 0.4 % Neutrophils # (Auto) 11.38 4.80 1.4-6.5 K/uL Lymphocytes # (Auto) 1.38 1.22 1.2-3.4 K/uL Monocytes # (Auto) 0.94 0.74 0.11-0.59 K/uL Eosinophils # (Auto) 0.13 0.08 0-0.5 K/uL Basophils # (Auto) 0.02 0.03 0-0.2 K/uL RDW Standard Deviation 49.7 50.5 36.4-46.3 fL RDW Coefficient of Variation 14.7 14.9 11.5-14.5 % Immature Granulocyte % (Auto) 0.3 0.3 % Immature Granulocyte # (Auto) 0.04 0.02 0.00-0.02 K/uL Sodium Level 131 136-145 mmol/L Potassium Level 4.0 3.5-5.1 mmol/L Chloride Level 101 98-107 mmol/L Carbon Dioxide Level 22 21-32 mmol/L Anion Gap 8.0 3-11 mmol/L Blood Urea Nitrogen 4 7-18 mg/dl Creatinine 0.78 0.60-1.40 mg/dl Est Creatinine Clear Calc Drug Dose 80.1 ml/min Estimated GFR () 105.3 Estimated GFR (Non- 90.8 BUN/Creatinine Ratio 4.9 10-20 Random Glucose 125 70-99 mg/dl Calcium Level 7.5 8.5-10.1 mg/dl Bedside Glucose 128 70-99 mg/dl Activated Partial Thromboplast Time 54.8 62.5 21.0-31.0 SECONDS Partial Thromboplastin Ratio 2.1 2.4 Red Blood Cell Morphology Unremarkable Prothrombin Time 11.9 9.0-12.0 SECONDS Prothromb Time International Ratio 1.1 0.9-1.1 Test 09/25/17 05:55 Range/Units Sodium Level 130 136-145 mmol/L Potassium Level 4.3 3.5-5.1 mmol/L Chloride Level 100 98-107 mmol/L Carbon Dioxide Level 25 21-32 mmol/L Anion Gap 5.0 3-11 mmol/L Blood Urea Nitrogen 5 7-18 mg/dl Creatinine 0.92 0.60-1.40 mg/dl Est Creatinine Clear Calc Drug Dose 69.0 ml/min Estimated GFR () 96.6 Estimated GFR (Non- 83.4 BUN/Creatinine Ratio 5.4 10-20 Random Glucose 108 70-99 mg/dl Calcium Level 7.9 8.5-10.1 mg/dl Microbiology Results 09/24/17 MRSA DNA Surveillance Screen - Final, Complete Specimen Negative for MRSA by DNA Probe
[2017-09-25 14:50] LABS: HEMATOCRIT 28.6 % (42-52); HEMOGLOBIN 9.9 g/dL (14.0-18.0); MEAN CELL VOLUME 90.8 fL (80-100); MEAN CORPUSCULAR HEMOGLOBIN 31.4 pg (25-34); MEAN CORPUSCULAR HGB CONC 34.6 g/dl (32-36); MEAN PLATELET VOLUME 9.7 fL (7.4-10.4); PLATELET COUNT 248 K/uL (130-400); RED CELL DISTRIBUTION WIDTH CV 15.4 % (11.5-14.5); RED CELL DISTRIBUTION WIDTH SD 51.2 fL (36.4-46.3); WHITE BLOOD COUNT 7.71 K/uL (4.8-10.8)
[2017-09-25] MEDS: HEPARIN 25,000 UNIT/500ML D5W 500 ML IV PRN ×3 (14:57→23:00)
[2017-09-26 07:25] VITALS: BP 128/55; PULSE 88; TEMP 36.5; O2SAT 96
[2017-09-26 07:34] LABS: BASO % 0.3 %; BASO ABS # 0.03 K/uL (0-0.2); EOS % 3.9 %; EOS ABS # 0.37 K/uL (0-0.5); HEMOGLOBIN 9.1 g/dL (14.0-18.0); IG# 0.03 K/uL (0.00-0.02); LYMPH % 13.5 %; LYMPH ABS # 1.28 K/uL (1.2-3.4); MEAN CELL VOLUME 91.5 fL (80-100); MEAN PLATELET VOLUME 9.3 fL (7.4-10.4); MONO ABS # 0.76 K/uL (0.11-0.59); NEUT ABS # 6.98 K/uL (1.4-6.5); PLATELET COUNT 247 K/uL (130-400); RED CELL DISTRIBUTION WIDTH CV 15.9 % (11.5-14.5); RED CELL DISTRIBUTION WIDTH SD 53.2 fL (36.4-46.3); WHITE BLOOD COUNT 9.45 K/uL (4.8-10.8)
[2017-09-26 07:49] LABS: PTT PATIENT 58.8 SECONDS (21.0-31.0)
[2017-09-26 08:15] LABS: ALBUMIN 1.8 gm/dl (3.4-5.0); ALKALINE PHOSPHATASE 62 U/L (45-117); ALT/SGPT < 6 U/L (12-78); BLOOD UREA NITROGEN 4 mg/dl (7-18); CALCIUM 8.1 mg/dl (8.5-10.1); CARBON DIOXIDE 25 mmol/L (21-32); CREATININE 0.76 mg/dl (0.60-1.40); GLUCOSE 94 mg/dl (70-99); POTASSIUM 3.7 mmol/L (3.5-5.1); SODIUM 133 mmol/L (136-145)
[2017-09-26] MEDS: HEPARIN 25,000 UNIT/500ML D5W 500 ML IV PRN ×2 (08:16→13:56)
[2017-09-26 08:17] LABS: AST/SGOT 11 U/L (15-37); TOTAL PROTEIN 5.6 gm/dl (6.4-8.2)
[2017-09-26] MEDS: FERROUS SULFATE 325 MG TAB PO SCH ×2 (08:17→20:15)
[2017-09-26] MEDS: CYANOCOBALAMIN 500 MCG TAB (VIT B-12) PO SCH (08:17)
[2017-09-26] MEDS: CALCIUM 600MG + VIT D 400 IU TAB PO SCH ×2 (08:17→20:16)
[2017-09-26] MEDS: CLOPIDOGREL BISULFATE 75 MG TAB PO SCH (08:18)
[2017-09-26] MEDS: ATORVASTATIN 40 MG TAB PO SCH (08:19)
[2017-09-26] MEDS: RANITIDINE HCL 150 MG TAB PO SCH (08:19)
[2017-09-26] MEDS: SERTRALINE HCL 50 MG TAB PO SCH (08:20)
[2017-09-26] MEDS: THIAMINE HCL 50 MG TAB PO SCH (08:20)
[2017-09-26] MEDS: ASPIRIN 81 MG ECTAB PO SCH (08:20)
[2017-09-26] MEDS: CEROVITE ADV FORMULA TAB PO SCH (08:20)
[2017-09-26] MEDS: GABAPENTIN 100 MG CAP PO SCH ×3 (08:22→20:16)
[2017-09-26] MEDS: MAGNESIUM OXIDE 400 MG TAB PO SCH ×2 (08:25→20:16)
[2017-09-26] MEDS: BOOST VANILLA PO SCH ×2 (08:25→17:55)
[2017-09-26] MEDS: NICOTINE 14 MG/24 HR TDSY TD SCH (08:25)
[2017-09-26] MEDS: SODIUM CHLORIDE 0.9% 1000ML 1,000 ML IV SCH (08:26)
--- NOTE | 2017-09-26 09:46 | Progress Note ---
Progress Note Date of Service: Sep 26, 2017. Subjective No complaints today Problem List Medical Problems: (1) Change in mental status Status: Acute (2) Closed fracture of neck of left humerus Status: Acute (3) Dehydration Status: Acute (4) Dehydration Status: Acute (5) History of alcohol abuse Status: Chronic (6) Leukocytosis Status: Acute (7) Multiple contusions Status: Acute (8) STEMI (ST elevation myocardial infarction) Status: Acute (9) STEMI (ST elevation myocardial infarction) Status: Acute (10) UTI (urinary tract infection) Status: Acute Objective Vital Signs Vital Signs Past 12 Hours Date Time Temp Pulse Resp B/P (MAP) Pulse Ox O2 Delivery O2 Flow Rate FiO2 09/26/17 07:25 36.5 88 19 128/55 (79) 96 Room Air 09/25/17 23:40 36.7 88 14 106/51 (69) 96 Room Air 09/25/17 23:35 Room Air Exam Afebrile VSS Incisions dry, dressing intact Toes are demarcating. Bypass patent with excellent peroneal signal on left. Laboratory and Microbiology Results Past 24 Hours Test 09/25/17 14:38 09/26/17 07:17 Range/Units White Blood Count 7.71 9.45 4.8-10.8 K/uL Red Blood Count 3.15 2.84 4.7-6.1 M/uL Hemoglobin 9.9 9.1 14.0-18.0 g/dL Hematocrit 28.6 26.0 42-52 % Mean Corpuscular Volume 90.8 91.5 80-100 fL Mean Corpuscular Hemoglobin 31.4 32.0 25-34 pg Mean Corpuscular Hemoglobin Concent 34.6 35.0 32-36 g/dl RDW Standard Deviation 51.2 53.2 36.4-46.3 fL RDW Coefficient of Variation 15.4 15.9 11.5-14.5 % Platelet Count 248 247 130-400 K/uL Mean Platelet Volume 9.7 9.3 7.4-10.4 fL Neutrophils (%) (Auto) 74.0 % Lymphocytes (%) (Auto) 13.5 % Monocytes (%) (Auto) 8.0 % Eosinophils (%) (Auto) 3.9 % Basophils (%) (Auto) 0.3 % Neutrophils # (Auto) 6.98 1.4-6.5 K/uL Lymphocytes # (Auto) 1.28 1.2-3.4 K/uL Monocytes # (Auto) 0.76 0.11-0.59 K/uL Eosinophils # (Auto) 0.37 0-0.5 K/uL Basophils # (Auto) 0.03 0-0.2 K/uL Immature Granulocyte % (Auto) 0.3 % Immature Granulocyte # (Auto) 0.03 0.00-0.02 K/uL Activated Partial Thromboplast Time 58.8 21.0-31.0 SECONDS Partial Thromboplastin Ratio 2.3 Sodium Level 133 136-145 mmol/L Potassium Level 3.7 3.5-5.1 mmol/L Chloride Level 102 98-107 mmol/L Carbon Dioxide Level 25 21-32 mmol/L Anion Gap 6.0 3-11 mmol/L Blood Urea Nitrogen 4 7-18 mg/dl Creatinine 0.76 0.60-1.40 mg/dl Est Creatinine Clear Calc Drug Dose 83.5 ml/min Estimated GFR () 106.4 Estimated GFR (Non- 91.8 BUN/Creatinine Ratio 5.4 10-20 Random Glucose 94 70-99 mg/dl Calcium Level 8.1 8.5-10.1 mg/dl Total Bilirubin 0.4 0.2-1 mg/dl Aspartate Amino Transf (AST/SGOT) 11 15-37 U/L Alanine Aminotransferase (ALT/SGPT) < 6 12-78 U/L Alkaline Phosphatase 62 45-117 U/L Total Protein 5.6 6.4-8.2 gm/dl Albumin 1.8 3.4-5.0 gm/dl Globulin 3.8 2.5-4.0 gm/dl Albumin/Globulin Ratio 0.5 0.9-2 Imp: Post left fem peroneal bypass Plan: Doing well Will most likely need great and 2nd toe amp this week
[2017-09-26] MEDS: PANTOprazole INJ 40 MG in SYRINGE 0 ML IV SCH (12:27)
[2017-09-26] MEDS: OXYCODONE/ACETAMINOPHEN 5-325 TAB PO PRN ×2 (14:00→20:27)
[2017-09-26 14:53] VITALS: BP 92/53; PULSE 88; TEMP 36.7; O2SAT 96
--- NOTE | 2017-09-26 15:19 | Progress Note ---
Internal Med Progress Note Date of Service: Sep 26, 2017. Provider Documentation: SUBJECTIVE: Patient seen and examined at bedside. 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 Hussein for anemia from postsurgical blood loss and low blood pre Since patient had been scheduled during this hospital admission for the left leg revascularization, patient has been off coumadin for history of pulmonary embolism and deep vein thrombosis and placed on IV heparin As per Dr. Hussein, IV heparin continued after left leg revascularization on as he expects that patient will require further surgical procedures (most likely need great toe and 2nd toe amp this week of the left foot) Will not restart Coumadin at this time History of syncope on admission in the ED on admission due to vaso vagal etiology of foot pain and/or orthostasis from volume depletion from poor PO intake S/P left leg revascularization: will hold lisinopril for now as patient has not been hypertensive Hypotonic Hyponatremia may be due to poor oral intake thyroid function test checked, clinically is euthyroid patient's serum sodium from admission increased after IV fluids, but would decrease when IV fluids held will hold IV fluids today on 09/26/17 and monitor blood pressure CAD history: continue on ASA, Plavix, statin. lisinopril held for now while monitoring for low blood pressure Antibiotics to date started on Zosyn and Vancomycin on 09/18/17 because wound culture was coag neg staph Zosyn stopped on 09/21/17 Vancomycin given until vascular procedure day on 09/24/17 Cefazolin given preop and postop on 09/24/17 Hold off further antibiotics for now DVT PROPHYLAXIS on Heparin IV Vital Signs: Date Time Temp Pulse Resp B/P (MAP) Pulse Ox O2 Delivery O2 Flow Rate FiO2 09/26/17 14:53 36.7 88 18 92/53 (66) 96 Room Air 09/26/17 09:25 Room Air 09/26/17 07:25 36.5 88 19 128/55 (79) 96 Room Air 09/25/17 23:40 36.7 88 14 106/51 (69) 96 Room Air 09/25/17 23:35 Room Air Lab Results: Results Past 24 Hours Test 09/26/17 07:17 Range/Units White Blood Count 9.45 4.8-10.8 K/uL Red Blood Count 2.84 4.7-6.1 M/uL Hemoglobin 9.1 14.0-18.0 g/dL Hematocrit 26.0 42-52 % Mean Corpuscular Volume 91.5 80-100 fL Mean Corpuscular Hemoglobin 32.0 25-34 pg Mean Corpuscular Hemoglobin Concent 35.0 32-36 g/dl Platelet Count 247 130-400 K/uL Mean Platelet Volume 9.3 7.4-10.4 fL Neutrophils (%) (Auto) 74.0 % Lymphocytes (%) (Auto) 13.5 % Monocytes (%) (Auto) 8.0 % Eosinophils (%) (Auto) 3.9 % Basophils (%) (Auto) 0.3 % Neutrophils # (Auto) 6.98 1.4-6.5 K/uL Lymphocytes # (Auto) 1.28 1.2-3.4 K/uL Monocytes # (Auto) 0.76 0.11-0.59 K/uL Eosinophils # (Auto) 0.37 0-0.5 K/uL Basophils # (Auto) 0.03 0-0.2 K/uL RDW Standard Deviation 53.2 36.4-46.3 fL RDW Coefficient of Variation 15.9 11.5-14.5 % Immature Granulocyte % (Auto) 0.3 % Immature Granulocyte # (Auto) 0.03 0.00-0.02 K/uL Activated Partial Thromboplast Time 58.8 21.0-31.0 SECONDS Partial Thromboplastin Ratio 2.3 Sodium Level 133 136-145 mmol/L Potassium Level 3.7 3.5-5.1 mmol/L Chloride Level 102 98-107 mmol/L Carbon Dioxide Level 25 21-32 mmol/L Anion Gap 6.0 3-11 mmol/L Blood Urea Nitrogen 4 7-18 mg/dl Creatinine 0.76 0.60-1.40 mg/dl Est Creatinine Clear Calc Drug Dose 83.5 ml/min Estimated GFR () 106.4 Estimated GFR (Non- 91.8 BUN/Creatinine Ratio 5.4 10-20 Random Glucose 94 70-99 mg/dl Calcium Level 8.1 8.5-10.1 mg/dl Total Bilirubin 0.4 0.2-1 mg/dl Aspartate Amino Transf (AST/SGOT) 11 15-37 U/L Alanine Aminotransferase (ALT/SGPT) < 6 12-78 U/L Alkaline Phosphatase 62 45-117 U/L Total Protein 5.6 6.4-8.2 gm/dl Albumin 1.8 3.4-5.0 gm/dl Globulin 3.8 2.5-4.0 gm/dl Albumin/Globulin Ratio 0.5 0.9-2
[2017-09-26 22:50] VITALS: BP 116/67; PULSE 81; TEMP 36.6; O2SAT 96
[2017-09-27 06:13] LABS: BASO % 0.3 %; BASO ABS # 0.03 K/uL (0-0.2); EOS % 4.1 %; EOS ABS # 0.39 K/uL (0-0.5); HEMATOCRIT 25.1 % (42-52); HEMOGLOBIN 8.8 g/dL (14.0-18.0); IG# 0.03 K/uL (0.00-0.02); LYMPH % 17.4 %; LYMPH ABS # 1.65 K/uL (1.2-3.4); MEAN CELL VOLUME 91.9 fL (80-100); MEAN CORPUSCULAR HEMOGLOBIN 32.2 pg (25-34); MEAN CORPUSCULAR HGB CONC 35.1 g/dl (32-36); MEAN PLATELET VOLUME 9.3 fL (7.4-10.4); MONO % 8.6 %; MONO ABS # 0.81 K/uL (0.11-0.59); NEUT % 69.3 %; NEUT ABS # 6.55 K/uL (1.4-6.5); PLATELET COUNT 247 K/uL (130-400); RED CELL DISTRIBUTION WIDTH CV 15.9 % (11.5-14.5); RED CELL DISTRIBUTION WIDTH SD 53.1 fL (36.4-46.3); WHITE BLOOD COUNT 9.46 K/uL (4.8-10.8)
[2017-09-27 06:47] LABS: ALBUMIN 1.6 gm/dl (3.4-5.0); CALCIUM 8.1 mg/dl (8.5-10.1); CREATININE 0.72 mg/dl (0.60-1.40); POTASSIUM 3.7 mmol/L (3.5-5.1); TOTAL PROTEIN 5.4 gm/dl (6.4-8.2)
[2017-09-27 06:51] VITALS: BP 101/57; PULSE 84; TEMP 36.6; O2SAT 97
[2017-09-27 07:00] LABS: PTT PATIENT 55.3 SECONDS (21.0-31.0)
--- NOTE | 2017-09-27 07:09 | OPERATIVE REPORT ---
DATE OF OPERATION: 09/24/2017 PREOPERATIVE DIAGNOSIS: Bilateral lower extremity critical wound ischemia with tissue loss due to thrombosed bilateral popliteal artery aneurysms. POSTOPERATIVE DIAGNOSIS: Same. PROCEDURE: 1. Right lower extremity lesser saphenous vein open harvest. 2. Left greater saphenous vein open harvest. 3. Femoral to peroneal bypass with composite 6 mm ring PTFE heparin bonded and right lesser saphenous vein. 4. Left lower extremity angiogram. 5. Placement of left 6 x 50 mm Viabahn stent at splice site between vein and graft. SURGEON: Abhijeet Hussein MD. HUMAN CAPITAL CONSULTANT: Rachelle Lyn MD, and Sara Cuevas PA-C. ANESTHESIA: General endotracheal anesthesia. ESTIMATED BLOOD LOSS: 150 FLUOROSCOPY TIME: 0.8 minutes. Milligrays were 9. CONTRAST: 24. COMPLICATIONS: None apparent. CONDITION: Extubated to ICU. INDICATIONS: Mr. Sven Doty is a 72-year-old male who presented with rest pain and tissue loss at bilateral toes, left worse than right. His arterial duplex showed bilateral thrombosed popliteal artery aneurysms. He underwent angiogram last week which demonstrated bilateral occlusions of the proximal SFA with reconstitution of the peroneal arteries through collaterals. As his left foot had more tissue loss than the right, it was decided to address this leg first. His daughter who is his power of assistant county attorney was advised of the risks and benefits of undergoing the above procedure and agreed to undergo the procedure. DESCRIPTION OF PROCEDURE: The patient was brought into the operative suite. He was prepped and draped in the prone position. Timeout occurred. An ultrasound was used to identify his right lesser saphenous vein, this was marked. This was found to be of adequate size and was dissected out. This incision was then closed with Vicryl and ritesh. On the back table, the vein was dilated. About half of the vein was sclerotic with thrombus and unusable. However, there was approximately a 10-12 cm portion that was about a good size that was usable. The drapes were taken down. The patient was then transitioned to the supine position. He was re-prepped and draped. Incision was then made over the distal ankle over the greater saphenous vein on the left. This was traced up to the knee. The vein was dissected out. However, the vein did not dilate, so was not used in repair. At this time, it was decided that he would need to undergo composite bypass to the vein at the distal endpoint and [place] ring PTFE at the proximal portion. Vein was placed in heparinized saline. Next, attention was turned to the left calf. The soleus was taken down. The posterior tibial neurovascular bundle was identified and pushed posteriorly. The peroneal artery was identified. This was dissected out. It was found to have some calcifications but was soft enough to clamp and deemed appropriate as the outflow artery. The patient was instilled with 7000 units of heparin. Small-angled DeBakey were used to clamp the artery. Arteriotomy was made and extended with Noland scissors. The vein was fashioned. The distal end of the vein was then cut to fit the arteriotomy and was sewn in an end-to-side fashion. Good hemostasis was obtained. A bulldog was placed at end of the vein graft and the vein was tucked into the lower thigh. Soleus was taken down in the proximal part of the incision. Attention was then turned to the left groin. The femoral artery was dissected out. This showed to have good pulse and was deemed suitable for proximal anastomosis. A tunnel was made in the subsartorial plane between the femoral artery and the calf incision. A tunneler was passed. A 6 mm ring PTFE bypass was then passed through the tunneler, ensuring that the blue ham were anterior. A small Hartman clamp was placed in the proximal femoral artery and an angled DeBakey was placed at the distal common femoral artery. An 11 blade was used to make an arteriotomy. The 6 mm ring PTFE was cut and sewn in an end-to-side fashion. Hemostasis was obtained. The vein graft and the PTFE graft were cut to fit in the calf incision and were sewn in an end-to-end fashion. The wound was inspected and hemostasis was obtained. A micropuncture needle was then used to access the bypass graft proximally. A micropuncture catheter was then inserted. An angiogram was obtained showing stenosis of the spliced site. However, the peroneal artery seemed to flow, the flow was slow there. In order to optimize this, it was decided to upsize the micropuncture sheath to a 6-[place] sheath and placed a 6 x 50 mm Viabahn stent at the site of the PTFE graft-vein splice site. A 6- [place] sheath was placed into the proximal graft. An 0.018 wire was placed through this through the spliced site into the autograft. A 6 x 50 mm Viabahn stent was then placed at the spliced site. Completion angiogram was obtained. This demonstrated brisk flow and resolution of stenosis and good filling of the peroneal all the way to the ankle with reconstitution of the foot via collaterals. At this time, it was decided to remove the sheath. The wounds were inspected for hemostasis. The wounds were closed in layers with 2-0 and 3-0 Vicryl and ritesh. The patient was extubated and then transported to the ICU in stable condition. Dr. Abhijeet Hussein was present and scrubbed for the entirety of this case. I attest to the content of the Intraoperative Record and any orders documented therein. Any exceptions are noted below. ALFREDO
[2017-09-27 07:45] VITALS: O2SAT 97
--- NOTE | 2017-09-27 07:49 | Anesthesiology Progress Note ---
Anesthesia Post Op Note Date & Time Sep 27, 2017 at 07:49 Vital Signs Pain Intensity: 0.0 Vital Signs Past 12 Hours Date Time Temp Pulse Resp B/P (MAP) Pulse Ox O2 Delivery O2 Flow Rate FiO2 09/27/17 06:51 36.6 84 18 101/57 (72) 97 Room Air 09/26/17 23:30 Room Air 09/26/17 22:50 36.6 81 18 116/67 (83) 96 Room Air Notes Mental Status: alert / awake / arousable, participated in evaluation Pt Amnestic to Procedure: Yes Nausea / Vomiting: adequately controlled Pain: adequately controlled Airway Patency, RR, SpO2: stable & adequate BP & HR: stable & adequate Hydration State: stable & adequate Anesthetic Complications: no major complications apparent
[2017-09-27] MEDS: BOOST VANILLA PO SCH ×2 (08:30→18:32)
[2017-09-27] MEDS: NICOTINE 14 MG/24 HR TDSY TD SCH (09:34)
[2017-09-27] MEDS: FERROUS SULFATE 325 MG TAB PO SCH ×2 (09:37→21:12)
[2017-09-27] MEDS: ASPIRIN 81 MG ECTAB PO SCH (09:37)
[2017-09-27] MEDS: CALCIUM 600MG + VIT D 400 IU TAB PO SCH ×2 (09:37→21:12)
[2017-09-27] MEDS: ATORVASTATIN 40 MG TAB PO SCH (09:38)
[2017-09-27] MEDS: CEROVITE ADV FORMULA TAB PO SCH (09:39)
[2017-09-27] MEDS: GABAPENTIN 100 MG CAP PO SCH ×3 (09:39→21:12)
[2017-09-27] MEDS: MAGNESIUM OXIDE 400 MG TAB PO SCH ×2 (09:39→21:11)
[2017-09-27] MEDS: CLOPIDOGREL BISULFATE 75 MG TAB PO SCH (09:40)
[2017-09-27] MEDS: CYANOCOBALAMIN 500 MCG TAB (VIT B-12) PO SCH (09:40)
[2017-09-27] MEDS: THIAMINE HCL 50 MG TAB PO SCH (09:40)
[2017-09-27] MEDS: SERTRALINE HCL 50 MG TAB PO SCH (09:41)
[2017-09-27] MEDS: RANITIDINE HCL 150 MG TAB PO SCH (09:41)
[2017-09-27] MEDS: HEPARIN 25,000 UNIT/500ML D5W 500 ML IV PRN ×2 (10:29→23:30)
--- NOTE | 2017-09-27 11:04 | Progress Note ---
Progress Note Date of Service: Sep 27, 2017. Subjective 72 yo m with multiple medical problems, POD #3 after Left Femoral to Peroneal Composite Bypass; Harvesting of Right Lesser Saphenous Vein; Stenting of femoral peroneal bypass, seenin f/u today. Pt admits pain in incisions, but denies pain in feet. VSS and labs stable Problem List Medical Problems: (1) Change in mental status Status: Acute (2) Closed fracture of neck of left humerus Status: Acute (3) Dehydration Status: Acute (4) Dehydration Status: Acute (5) History of alcohol abuse Status: Chronic (6) Leukocytosis Status: Acute (7) Multiple contusions Status: Acute (8) STEMI (ST elevation myocardial infarction) Status: Acute (9) STEMI (ST elevation myocardial infarction) Status: Acute (10) UTI (urinary tract infection) Status: Acute Objective Vital Signs Vital Signs Past 12 Hours Date Time Temp Pulse Resp B/P (MAP) Pulse Ox O2 Delivery O2 Flow Rate FiO2 09/27/17 07:45 97 Room Air 09/27/17 06:51 36.6 84 18 101/57 (72) 97 Room Air 09/26/17 23:30 Room Air Exam CONST: A&O x3, NAD, chronically ill appearing male EXT: BLE incisions C/D/I with ritesh. + mild edema, no erythema. L 1st and 2nd toes necrotic. other 3 toes good cap refill. R great toe tip dry gangrene. + peroneal signal LLE. Laboratory and Microbiology Results Past 24 Hours Test 09/27/17 05:48 Range/Units White Blood Count 9.46 4.8-10.8 K/uL Red Blood Count 2.73 4.7-6.1 M/uL Hemoglobin 8.8 14.0-18.0 g/dL Hematocrit 25.1 42-52 % Mean Corpuscular Volume 91.9 80-100 fL Mean Corpuscular Hemoglobin 32.2 25-34 pg Mean Corpuscular Hemoglobin Concent 35.1 32-36 g/dl Platelet Count 247 130-400 K/uL Mean Platelet Volume 9.3 7.4-10.4 fL Neutrophils (%) (Auto) 69.3 % Lymphocytes (%) (Auto) 17.4 % Monocytes (%) (Auto) 8.6 % Eosinophils (%) (Auto) 4.1 % Basophils (%) (Auto) 0.3 % Neutrophils # (Auto) 6.55 1.4-6.5 K/uL Lymphocytes # (Auto) 1.65 1.2-3.4 K/uL Monocytes # (Auto) 0.81 0.11-0.59 K/uL Eosinophils # (Auto) 0.39 0-0.5 K/uL Basophils # (Auto) 0.03 0-0.2 K/uL RDW Standard Deviation 53.1 36.4-46.3 fL RDW Coefficient of Variation 15.9 11.5-14.5 % Immature Granulocyte % (Auto) 0.3 % Immature Granulocyte # (Auto) 0.03 0.00-0.02 K/uL Red Blood Cell Morphology Unremarkable Activated Partial Thromboplast Time 55.3 21.0-31.0 SECONDS Partial Thromboplastin Ratio 2.1 Sodium Level 133 136-145 mmol/L Potassium Level 3.7 3.5-5.1 mmol/L Chloride Level 102 98-107 mmol/L Carbon Dioxide Level 25 21-32 mmol/L Anion Gap 6.0 3-11 mmol/L Blood Urea Nitrogen 4 7-18 mg/dl Creatinine 0.72 0.60-1.40 mg/dl Est Creatinine Clear Calc Drug Dose 88.1 ml/min Estimated GFR () 108.8 Estimated GFR (Non- 93.9 BUN/Creatinine Ratio 5.9 10-20 Random Glucose 85 70-99 mg/dl Calcium Level 8.1 8.5-10.1 mg/dl Total Bilirubin 0.4 0.2-1 mg/dl Aspartate Amino Transf (AST/SGOT) 11 15-37 U/L Alanine Aminotransferase (ALT/SGPT) 7 12-78 U/L Alkaline Phosphatase 61 45-117 U/L Total Protein 5.4 6.4-8.2 gm/dl Albumin 1.6 3.4-5.0 gm/dl Globulin 3.8 2.5-4.0 gm/dl Albumin/Globulin Ratio 0.4 0.9-2 ASSESSMENT and PLAN: s/p Left Femoral to Peroneal Composite Bypass; Harvesting of Right Lesser Saphenous Vein; Stenting of femoral peroneal bypass Severe PAD with rest pain and gangrene Pt doing well post op. Planning on L 1st and 2nd toe amputations in OR on WED. Pt aware. Would recommend rehab for this pt at discharge.
[2017-09-27] MEDS: PANTOprazole INJ 40 MG in SYRINGE 0 ML IV SCH (11:17)
[2017-09-27 15:09] VITALS: BP 96/49; PULSE 98; TEMP 36.5; O2SAT 97
[2017-09-27 15:50] VITALS: BP 127/65; PULSE 97
--- NOTE | 2017-09-27 16:14 | Progress Note ---
Internal Med Progress Note Date of Service: Sep 27, 2017. Provider Documentation: SUBJECTIVE: Patient seen and examined at bedside. Reports having tenderness of surgical site OBJECTIVE: Exam: General- no acute distress Eyes- EOMI Neck- midline trachea, no JVD Lungs- CTABL, no use of accessory muscles Heart- Regular rate Abdomen- Soft, nontender, + bowel sounds Extremities- Extremities- left foot with some pedal swelling and some tenderness to touch, left foot big toe and adjacent toe still brown color, the big toe of right foot with some ulceration as before, no calf tenderness Neuro- awake and alert ASSESSMENT & PLAN: ASSESSMENT & PLAN: Gangrene of Toes on Both Feet, Peripheral Artery Disease Left leg revascularization on 09/24/17: Left Femoral to Peroneal Composite Bypass; Harvesting of Right Lesser Saphenous Vein; Stenting of femoral peroneal bypass S/p 1 unit of PRBC on 09/25/[address] Hussein for anemia from postsurgical blood loss and low blood pre Since patient had been scheduled during this hospital admission for the left leg revascularization, patient has been off coumadin for history of pulmonary embolism and deep vein thrombosis and placed on IV heparin As per Dr. Hussein, IV heparin continued after left leg revascularization on as he expects that patient will require further surgical procedures Planning on L 1st and 2nd toe amputations in OR on Wed09/29/17 as per vascular team History of syncope on admission in the ED on admission due to vaso vagal etiology from foot pain and/or orthostasis from volume depletion from poor PO intake S/P left leg revascularization: will hold lisinopril for now as patient has not been hypertensive Hypotonic Hyponatremia may be due to poor oral intake thyroid function test checked, clinically is euthyroid patient's serum sodium from admission increased after IV fluids, but would decrease when IV fluids held IV fluids stopped on 09/26/17 and currently serum sodium is 133 and blood pressure is acceptable CAD history: continue on ASA, Plavix, statin. lisinopril held because low blood pressure, continue to hold lisinopril for now Antibiotics to date started on Zosyn and Vancomycin on 09/18/17 because wound culture was coag neg staph Zosyn stopped on 09/21/17 Vancomycin given until vascular procedure day on 09/24/17 Cefazolin given preop and postop on 09/24/17 Hold off further antibiotics for now Monitor for infection of left foot post-op and pain, however patient currently afebrile and likely symptoms of left foot pain will improve after toe amputation as possible nidus for infection is removed DVT PROPHYLAXIS on Heparin IV Disposition: after post-op of planned toe amputations, the vascular service expects that patient will need physical rehab However, after vascular procedures completed, 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 history of PE and DVT prior to discharge In the past, patient was on Coumadin because for PE and DVT because he was considered to be a fall risk and Coumadin has readily available reversal agent at many medical facilities Vital Signs: Date Time Temp Pulse Resp B/P (MAP) Pulse Ox O2 Delivery O2 Flow Rate FiO2 09/27/17 15:50 97 127/65 (85) 09/27/17 15:15 Room Air 09/27/17 15:09 36.5 98 16 96/49 (65) 97 Room Air 09/27/17 07:45 97 Room Air 09/27/17 06:51 36.6 84 18 101/57 (72) 97 Room Air 09/26/17 23:30 Room Air 09/26/17 22:50 36.6 81 18 116/67 (83) 96 Room Air Lab Results: Results Past 24 Hours Test 09/27/17 05:48 Range/Units White Blood Count 9.46 4.8-10.8 K/uL Red Blood Count 2.73 4.7-6.1 M/uL Hemoglobin 8.8 14.0-18.0 g/dL Hematocrit 25.1 42-52 % Mean Corpuscular Volume 91.9 80-100 fL Mean Corpuscular Hemoglobin 32.2 25-34 pg Mean Corpuscular Hemoglobin Concent 35.1 32-36 g/dl Platelet Count 247 130-400 K/uL Mean Platelet Volume 9.3 7.4-10.4 fL Neutrophils (%) (Auto) 69.3 % Lymphocytes (%) (Auto) 17.4 % Monocytes (%) (Auto) 8.6 % Eosinophils (%) (Auto) 4.1 % Basophils (%) (Auto) 0.3 % Neutrophils # (Auto) 6.55 1.4-6.5 K/uL Lymphocytes # (Auto) 1.65 1.2-3.4 K/uL Monocytes # (Auto) 0.81 0.11-0.59 K/uL Eosinophils # (Auto) 0.39 0-0.5 K/uL Basophils # (Auto) 0.03 0-0.2 K/uL RDW Standard Deviation 53.1 36.4-46.3 fL RDW Coefficient of Variation 15.9 11.5-14.5 % Immature Granulocyte % (Auto) 0.3 % Immature Granulocyte # (Auto) 0.03 0.00-0.02 K/uL Red Blood Cell Morphology Unremarkable Activated Partial Thromboplast Time 55.3 21.0-31.0 SECONDS Partial Thromboplastin Ratio 2.1 Sodium Level 133 136-145 mmol/L Potassium Level 3.7 3.5-5.1 mmol/L Chloride Level 102 98-107 mmol/L Carbon Dioxide Level 25 21-32 mmol/L Anion Gap 6.0 3-11 mmol/L Blood Urea Nitrogen 4 7-18 mg/dl Creatinine 0.72 0.60-1.40 mg/dl Est Creatinine Clear Calc Drug Dose 88.1 ml/min Estimated GFR () 108.8 Estimated GFR (Non- 93.9 BUN/Creatinine Ratio 5.9 10-20 Random Glucose 85 70-99 mg/dl Calcium Level 8.1 8.5-10.1 mg/dl Total Bilirubin 0.4 0.2-1 mg/dl Aspartate Amino Transf (AST/SGOT) 11 15-37 U/L Alanine Aminotransferase (ALT/SGPT) 7 12-78 U/L Alkaline Phosphatase 61 45-117 U/L Total Protein 5.4 6.4-8.2 gm/dl Albumin 1.6 3.4-5.0 gm/dl Globulin 3.8 2.5-4.0 gm/dl Albumin/Globulin Ratio 0.4 0.9-2
[2017-09-27 23:25] VITALS: BP 112/54; PULSE 89; TEMP 36.6; O2SAT 95
[2017-09-28] MEDS: HEPARIN 25,000 UNIT/500ML D5W 500 ML IV PRN ×3 (06:54→15:04)
[2017-09-28 07:17] LABS: BASO % 0.5 %; BASO ABS # 0.04 K/uL (0-0.2); EOS ABS # 0.25 K/uL (0-0.5); HEMATOCRIT 23.5 % (42-52); HEMOGLOBIN 8.2 g/dL (14.0-18.0); IG# 0.03 K/uL (0.00-0.02); LYMPH % 14.9 %; LYMPH ABS # 1.26 K/uL (1.2-3.4); MEAN CORPUSCULAR HEMOGLOBIN 31.4 pg (25-34); MEAN CORPUSCULAR HGB CONC 34.9 g/dl (32-36); MEAN PLATELET VOLUME 9.1 fL (7.4-10.4); MONO % 8.9 %; MONO ABS # 0.75 K/uL (0.11-0.59); NEUT % 72.3 %; PLATELET COUNT 289 K/uL (130-400); RED CELL DISTRIBUTION WIDTH CV 15.4 % (11.5-14.5); RED CELL DISTRIBUTION WIDTH SD 50.3 fL (36.4-46.3); WHITE BLOOD COUNT 8.43 K/uL (4.8-10.8)
[2017-09-28 07:20] VITALS: O2SAT 97
[2017-09-28 07:37] VITALS: BP 108/60; PULSE 78; TEMP 36.6; O2SAT 96
[2017-09-28 07:48] LABS: ALBUMIN 1.6 gm/dl (3.4-5.0); CALCIUM 8.2 mg/dl (8.5-10.1); CREATININE 0.73 mg/dl (0.60-1.40); POTASSIUM 3.6 mmol/L (3.5-5.1)
[2017-09-28 07:51] LABS: TOTAL PROTEIN 5.4 gm/dl (6.4-8.2)
[2017-09-28] MEDS: BOOST VANILLA PO SCH ×2 (08:30→17:45)
[2017-09-28] MEDS: MAGNESIUM OXIDE 400 MG TAB PO SCH ×2 (08:59→20:33)
[2017-09-28] MEDS: GABAPENTIN 100 MG CAP PO SCH ×3 (09:00→20:33)
[2017-09-28] MEDS: CEROVITE ADV FORMULA TAB PO SCH (09:00)
[2017-09-28] MEDS: FERROUS SULFATE 325 MG TAB PO SCH ×2 (09:01→20:33)
[2017-09-28] MEDS: THIAMINE HCL 50 MG TAB PO SCH (09:01)
[2017-09-28] MEDS: RANITIDINE HCL 150 MG TAB PO SCH (09:01)
[2017-09-28] MEDS: SERTRALINE HCL 50 MG TAB PO SCH (09:01)
[2017-09-28] MEDS: ATORVASTATIN 40 MG TAB PO SCH (09:02)
[2017-09-28] MEDS: ASPIRIN 81 MG ECTAB PO SCH (09:02)
[2017-09-28] MEDS: CLOPIDOGREL BISULFATE 75 MG TAB PO SCH (09:03)
[2017-09-28] MEDS: CALCIUM 600MG + VIT D 400 IU TAB PO SCH ×2 (09:03→20:33)
[2017-09-28] MEDS: CYANOCOBALAMIN 500 MCG TAB (VIT B-12) PO SCH (09:03)
[2017-09-28] MEDS: NICOTINE 14 MG/24 HR TDSY TD SCH (09:04)
[2017-09-28] MEDS: PANTOprazole INJ 40 MG in SYRINGE 0 ML IV SCH (11:25)
[2017-09-28] MEDS: OXYCODONE/ACETAMINOPHEN 5-325 TAB PO PRN (13:24)
[2017-09-28 15:26] VITALS: BP 112/60; PULSE 84; TEMP 36.5; O2SAT 98
--- NOTE | 2017-09-28 18:26 | Progress Note ---
Medicine Progress Note Date & Time of Visit: Sep 28, 2017 at 18:09. Subjective Pt was seen and examined Lying in bed with no distress Pt said that she feels fine Denies any chest pain, palpitation, dizziness and SOB Objective Last 8 Hrs Date Time Temp Pulse Resp B/P (MAP) Pulse Ox O2 Delivery O2 Flow Rate FiO2 09/28/17 15:26 36.5 84 18 112/60 (77) 98 Room Air Physical Exam: General- No acute distress Head- atraumatic Eyes- PERRL, EOMI ENT- oropharynx clear Neck- supple, no JVD Lungs- clear to auscultation Heart- regular rhythm Abdomen- normal bowel sounds, soft Extremities- Left foot 1st and 2nd toe necrosis, Right foot big toe with some ulceration at the tip, +swelling Neuro- alert, oriented x 3; PERRL, EOMI Skin- warm & dry Laboratory Results: Last 24 Hours Test 09/28/17 06:52 White Blood Count 8.43 K/uL Red Blood Count 2.61 M/uL Hemoglobin 8.2 g/dL Hematocrit 23.5 % Mean Corpuscular Volume 90.0 fL Mean Corpuscular Hemoglobin 31.4 pg Mean Corpuscular Hemoglobin Concent 34.9 g/dl Platelet Count 289 K/uL Mean Platelet Volume 9.1 fL Neutrophils (%) (Auto) 72.3 % Lymphocytes (%) (Auto) 14.9 % Monocytes (%) (Auto) 8.9 % Eosinophils (%) (Auto) 3.0 % Basophils (%) (Auto) 0.5 % Neutrophils # (Auto) 6.10 K/uL Lymphocytes # (Auto) 1.26 K/uL Monocytes # (Auto) 0.75 K/uL Eosinophils # (Auto) 0.25 K/uL Basophils # (Auto) 0.04 K/uL RDW Standard Deviation 50.3 fL RDW Coefficient of Variation 15.4 % Immature Granulocyte % (Auto) 0.4 % Immature Granulocyte # (Auto) 0.03 K/uL Red Blood Cell Morphology Unremarkable Activated Partial Thromboplast Time 52.0 SECONDS Partial Thromboplastin Ratio 2.0 Sodium Level 131 mmol/L Potassium Level 3.6 mmol/L Chloride Level 98 mmol/L Carbon Dioxide Level 26 mmol/L Anion Gap 7.0 mmol/L Blood Urea Nitrogen 4 mg/dl Creatinine 0.73 mg/dl Est Creatinine Clear Calc Drug Dose 86.9 ml/min Estimated GFR () 108.2 Estimated GFR (Non- 93.3 BUN/Creatinine Ratio 5.8 Random Glucose 95 mg/dl Calcium Level 8.2 mg/dl Total Bilirubin 0.5 mg/dl Aspartate Amino Transf (AST/SGOT) 22 U/L Alanine Aminotransferase (ALT/SGPT) 8 U/L Alkaline Phosphatase 67 U/L Total Protein 5.4 gm/dl Albumin 1.6 gm/dl Globulin 3.8 gm/dl Albumin/Globulin Ratio 0.4 Assessment & Plan 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 Hussein Continue IV heparin for now due to recent PE/DVT Plan for L 1st and 2nd toe amputations tomorrow by Vascular dr. Hussein No leukocytosis Wound cx growth gram negative staph Received IV abx with Vanco and Zosyn that were D/C Will make NPO after midnight Will need rehab PE/DVT Coumadin has been held due to surgical procedure Continue IV heparin for now Will resume Coumadin after surgery Hx Syncope Possible related to Vasovagal e Stable Hypotonic Hyponatremia may be due to poor oral intake Received IVF Na 131 Will increase food intake Monitor BMP CAD history Denies any chest pain continue on ASA, Plavix, statin DVT PROPHYLAXIS on Heparin IV Code Status Full code Consultants: vascular Current Inpatient Medications: Current Inpatient Medications Medications (Trade) Dose Ordered Sig/Nieves Route Start Time Stop Time Status Last Admin Dose Admin Acetaminophen (Tylenol Tab) 650 mg Q4H PRN PO 09/16/17 14:30 10/16/17 14:29 09/23/17 15:24 650 MG Aspirin (Ecotrin Tab) 81 mg DAILY PO 09/17/17 09:00 10/17/17 08:59 09/28/17 09:02 81 MG Atorvastatin Calcium (Lipitor Tab) 80 mg DAILY PO 09/17/17 09:00 10/17/17 08:59 09/28/17 09:02 80 MG Calcium/Vitamin D (Caltrate Plus Tab) 1 tab BID PO 09/16/17 21:00 10/16/17 20:59 09/28/17 09:03 1 TAB Clopidogrel Bisulfate (plAVix TAB) 75 mg DAILY PO 09/17/17 09:00 10/17/17 08:59 09/28/17 09:03 75 MG Cyanocobalamin (Vitamin B-12 Tab) 1,000 mcg DAILY PO 09/17/17 09:00 10/17/17 08:59 09/28/17 09:03 1,000 MCG Enalapril Maleate (Vasotec Tab) 5 mg DAILY PO 09/17/17 09:00 10/17/17 08:59 Future Hold 09/25/17 07:35 5 MG Folic Acid (Folvite Tab) 1 mg DAILY PO 09/17/17 09:00 10/17/17 08:59 09/28/17 09:01 1 MG Gabapentin (Neurontin Cap) 100 mg TID PO 09/16/17 21:00 10/16/17 20:59 09/28/17 13:23 100 MG Magnesium Oxide (Mag-Ox Tab) 400 mg BID PO 09/16/17 21:00 10/16/17 20:59 09/28/17 08:59 400 MG Multivitamins/ Minerals (Multivitamin W/ Minerals Tab) 1 tab DAILY PO 09/17/17 09:00 10/17/17 08:59 09/28/17 09:00 1 TAB Ranitidine HCl (zANTac TAB) 150 mg DAILY PO 09/17/17 09:00 10/17/17 08:59 09/28/17 09:01 150 MG Sertraline HCl (Zoloft Tab) 50 mg DAILY PO 09/17/17 09:00 10/17/17 08:59 09/28/17 09:01 50 MG Thiamine HCl (Vitamin B-1 Tab) 50 mg DAILY PO 09/17/17 09:00 10/17/17 08:59 09/28/17 09:01 50 MG Ferrous Sulfate (Feosol Tab) 325 mg BID PO 09/16/17 21:00 10/16/17 20:59 09/28/17 09:01 325 MG Nicotine (Nicoderm Cq 14MG Patch) 1 patch QAM TD 09/20/17 09:00 10/20/17 08:59 09/28/17 09:04 1 PATCH Miscellaneous (Remove Nicoderm Patch) 1 ea HS N/A 09/19/17 21:00 10/19/17 20:59 09/27/17 21:13 1 EA Oxycodone/ Acetaminophen (Percocet 5-325mg Tab) `1-2 TABS FOR MODER... Q4H PRN PO 09/24/17 16:15 10/08/17 16:14 09/28/17 13:24 1 TAB Morphine Sulfate (MoRPHine SULFATE INJ) If PO analgesic is orde... Q2H PRN IV 09/24/17 16:15 10/08/17 16:14 09/25/17 08:08 2 MG Ondansetron HCl (Zofran Inj) 4 mg Q6H PRN IV 09/24/17 16:15 10/24/17 16:14 Pantoprazole Sodium 40 mg/ Syringe 10 ml @ 5 mls/min DAILY@11 IV 09/25/17 11:00 09/28/17 23:59 09/28/17 11:25 5 MLS/MIN Heparin Sodium/ Dextrose 500 ml @ 23 mls/hr [id number] PRN IV 09/24/17 20:15 10/24/17 20:14 09/28/17 15:04 23 MLS/HR Enteral Nutritional Formula (Boost) 1 can BIDM PO 09/25/17 07:15 10/25/17 07:14 09/28/17 08:30 1 CAN
[2017-09-28 23:17] VITALS: BP 116/61; PULSE 80; TEMP 36.6; O2SAT 95
[2017-09-29] MEDS: HEPARIN 25,000 UNIT/500ML D5W 500 ML IV PRN ×5 (06:15→23:18)
[2017-09-29] MEDS: OXYCODONE/ACETAMINOPHEN 5-325 TAB PO PRN (06:21)
[2017-09-29 06:58] VITALS: BP 111/68; PULSE 91; TEMP 36.6; O2SAT 93
[2017-09-29] MEDS: BOOST VANILLA PO SCH ×2 (08:30→17:45)
[2017-09-29 08:58] LABS: BASO % 0.2 %; BASO ABS # 0.02 K/uL (0-0.2); EOS % 2.6 %; EOS ABS # 0.25 K/uL (0-0.5); HEMATOCRIT 23.8 % (42-52); HEMOGLOBIN 8.3 g/dL (14.0-18.0); IG# 0.02 K/uL (0.00-0.02); LYMPH % 13.1 %; LYMPH ABS # 1.26 K/uL (1.2-3.4); MEAN CELL VOLUME 90.2 fL (80-100); MEAN CORPUSCULAR HEMOGLOBIN 31.4 pg (25-34); MEAN CORPUSCULAR HGB CONC 34.9 g/dl (32-36); MEAN PLATELET VOLUME 9.4 fL (7.4-10.4); MONO % 8.7 %; MONO ABS # 0.83 K/uL (0.11-0.59); NEUT % 75.2 %; NEUT ABS # 7.21 K/uL (1.4-6.5); PLATELET COUNT 325 K/uL (130-400); RED CELL DISTRIBUTION WIDTH CV 15.4 % (11.5-14.5); WHITE BLOOD COUNT 9.59 K/uL (4.8-10.8)
[2017-09-29] MEDS: CYANOCOBALAMIN 500 MCG TAB (VIT B-12) PO SCH (09:00)
[2017-09-29] MEDS: THIAMINE HCL 50 MG TAB PO SCH (09:00)
[2017-09-29] MEDS: NICOTINE 14 MG/24 HR TDSY TD SCH (09:00)
[2017-09-29] MEDS: GABAPENTIN 100 MG CAP PO SCH ×3 (09:00→20:54)
[2017-09-29] MEDS: CALCIUM 600MG + VIT D 400 IU TAB PO SCH ×2 (09:00→20:54)
[2017-09-29] MEDS: RANITIDINE HCL 150 MG TAB PO SCH (09:00)
[2017-09-29] MEDS: MAGNESIUM OXIDE 400 MG TAB PO SCH ×2 (09:00→20:54)
[2017-09-29] MEDS: CEROVITE ADV FORMULA TAB PO SCH (09:00)
[2017-09-29] MEDS: FERROUS SULFATE 325 MG TAB PO SCH ×2 (09:00→20:54)
[2017-09-29 09:28] LABS: ALBUMIN 1.7 gm/dl (3.4-5.0); CALCIUM 8.4 mg/dl (8.5-10.1); CREATININE 0.71 mg/dl (0.60-1.40); POTASSIUM 3.9 mmol/L (3.5-5.1)
[2017-09-29 09:31] LABS: TOTAL PROTEIN 5.7 gm/dl (6.4-8.2)
--- NOTE | 2017-09-29 09:31 | Clinical Documentation Query ---
CLINICAL DOCUMENTATION QUERY 09/27 internal medicine progress note states, "S/p 1 unit of PRBC on 09/25/[address] Hussein for anemia from postsurgical blood loss. . ." Unfortunately this verbiage codes to a complication of care. EBL was only documented at 150 mls. In your clinical opinion is this patient being managed for: ( ) Anemia from postsurgical blood loss (A complication of care) ( ) Expected acute blood loss anemia associated with any vascular procedure (NOT a complication of care) ( ) Not Agree ( ) Other explanation of clinical findings (Please Explain) ( ) Unable to determine (Please Define) ( ) Need to Discuss The medical record reflects the following clinical findings, treatment, and risk factors. Clinical Indicators: As above. Sx EBL 150 mls, Hgb 8.2, Hct 23.5 Treatment: 1 unit of PRBC's Risk Factors: Vascular sx, age, Heparin therapy, Please clarify and document your clinical opinion in the progress notes and discharge summary. Terms such as "probable", "suspected", "likely", "questionable", "possible", or "still to be ruled out" are acceptable. IF IN AGREEMENT, YOU MUST DOCUMENT ABOVE DIAGNOSTIC STATEMENT IN DAILY PROGRESS NOTES AND DISCHARGE SUMMARY. This document is not part of the patient's record. Thank You, Alex Islas, ZAIRA [phone]
--- NOTE | 2017-09-29 13:30 | Anesthesiology Progress Note ---
Anesthesia Progress Note Date of Service Sep 29, 2017. Progress Notes Mr. Doty is scheduled for toe amputation on 09/30/17. He recently had fem-pop bypass on 09/24/17 without incident. No major changes in his health status. NKDA. Tolerates anesthesia without problems. Easy airway per record on . Plan for General anesthesia vs ankle block with sedation. Consent obtained. No SAB given he took plavix on 09/28/17. All questions answered. Patient appears to be optimized for surgery tomorrow.
--- NOTE | 2017-09-29 13:41 | Progress Note ---
Progress Note Date of Service: Sep 29, 2017. Subjective 72 yo m with multiple medical problems, s/p LLE fem-peroneal composite bypass, seen in f/u today. Pt states pain is mild in LLE. Denies any new complaints Problem List Medical Problems: (1) Change in mental status Status: Acute (2) Closed fracture of neck of left humerus Status: Acute (3) Dehydration Status: Acute (4) Dehydration Status: Acute (5) History of alcohol abuse Status: Chronic (6) Leukocytosis Status: Acute (7) Multiple contusions Status: Acute (8) STEMI (ST elevation myocardial infarction) Status: Acute (9) STEMI (ST elevation myocardial infarction) Status: Acute (10) UTI (urinary tract infection) Status: Acute Objective Vital Signs Vital Signs Past 12 Hours Date Time Temp Pulse Resp B/P (MAP) Pulse Ox O2 Delivery O2 Flow Rate FiO2 09/29/17 07:40 Room Air 09/29/17 06:58 36.6 91 18 111/68 (82) 93 Room Air Exam CONST: A&O x2, NAD, thin, chronically ill appearing male EXT: LLE incisions C/D/I with ritesh. No drainage noted. 1st and 2nd toes necrotic. other toes refill. RLE great toe necrotic distally, dry. Laboratory and Microbiology Results Past 24 Hours Test 09/29/17 08:17 Range/Units White Blood Count 9.59 4.8-10.8 K/uL Red Blood Count 2.64 4.7-6.1 M/uL Hemoglobin 8.3 14.0-18.0 g/dL Hematocrit 23.8 42-52 % Mean Corpuscular Volume 90.2 80-100 fL Mean Corpuscular Hemoglobin 31.4 25-34 pg Mean Corpuscular Hemoglobin Concent 34.9 32-36 g/dl Platelet Count 325 130-400 K/uL Mean Platelet Volume 9.4 7.4-10.4 fL Neutrophils (%) (Auto) 75.2 % Lymphocytes (%) (Auto) 13.1 % Monocytes (%) (Auto) 8.7 % Eosinophils (%) (Auto) 2.6 % Basophils (%) (Auto) 0.2 % Neutrophils # (Auto) 7.21 1.4-6.5 K/uL Lymphocytes # (Auto) 1.26 1.2-3.4 K/uL Monocytes # (Auto) 0.83 0.11-0.59 K/uL Eosinophils # (Auto) 0.25 0-0.5 K/uL Basophils # (Auto) 0.02 0-0.2 K/uL RDW Standard Deviation 51.0 36.4-46.3 fL RDW Coefficient of Variation 15.4 11.5-14.5 % Immature Granulocyte % (Auto) 0.2 % Immature Granulocyte # (Auto) 0.02 0.00-0.02 K/uL Red Blood Cell Morphology Unremarkable Activated Partial Thromboplast Time 48.0 21.0-31.0 SECONDS Partial Thromboplastin Ratio 1.8 Sodium Level 131 136-145 mmol/L Potassium Level 3.9 3.5-5.1 mmol/L Chloride Level 97 98-107 mmol/L Carbon Dioxide Level 25 21-32 mmol/L Anion Gap 9.0 3-11 mmol/L Blood Urea Nitrogen 5 7-18 mg/dl Creatinine 0.71 0.60-1.40 mg/dl Est Creatinine Clear Calc Drug Dose 89.4 ml/min Estimated GFR () 109.4 Estimated GFR (Non- 94.4 BUN/Creatinine Ratio 6.5 10-20 Random Glucose 100 70-99 mg/dl Calcium Level 8.4 8.5-10.1 mg/dl Total Bilirubin 0.9 0.2-1 mg/dl Aspartate Amino Transf (AST/SGOT) 21 15-37 U/L Alanine Aminotransferase (ALT/SGPT) 9 12-78 U/L Alkaline Phosphatase 71 45-117 U/L Total Protein 5.7 6.4-8.2 gm/dl Albumin 1.7 3.4-5.0 gm/dl Globulin 4.0 2.5-4.0 gm/dl Albumin/Globulin Ratio 0.4 0.9-2 ASSESSMENT and PLAN: s/p LLE fem-peroneal composite bypass with harvest of RLE small saphenous v LLE severe PAD with rest pain and gangrene Pt doing well post op. Planning on LLE 1st and 2nd toe amputations tomorrow in OR. Discussed with pt, he is agreeable. Attempted to call pt's daughter, but no answer and unable to leave message.
[2017-09-29] MEDS: ASPIRIN 81 MG ECTAB PO SCH (13:47)
[2017-09-29] MEDS: SERTRALINE HCL 50 MG TAB PO SCH (13:48)
[2017-09-29] MEDS: CLOPIDOGREL BISULFATE 75 MG TAB PO SCH (13:48)
[2017-09-29] MEDS: ATORVASTATIN 40 MG TAB PO SCH (13:49)
[2017-09-29 14:51] VITALS: BP 112/64; PULSE 93; TEMP 36.2; O2SAT 92
--- NOTE | 2017-09-29 17:59 | Progress Note ---
Medicine Progress Note Date & Time of Visit: Sep 29, 2017 at 17:56. Subjective Pt was seen and examined Lying in bed with no distress denies any chest pain, palpitation, dizziness and SOB Objective Last 8 Hrs Date Time Temp Pulse Resp B/P (MAP) Pulse Ox O2 Delivery O2 Flow Rate FiO2 09/29/17 15:30 Room Air 09/29/17 14:51 36.2 93 18 112/64 (80) 92 Room Air Physical Exam: General- No acute distress Head- atraumatic Eyes- PERRL, EOMI ENT- oropharynx clear Neck- supple, no JVD Lungs- clear to auscultation Heart- regular rhythm Abdomen- normal bowel sounds, soft Extremities- Left foot 1st and 2nd toe necrosis, Right foot big toe with some ulceration at the tip, +swelling Neuro- alert, oriented x 3; PERRL, EOMI Skin- warm & dry Laboratory Results: Last 24 Hours Test 09/29/17 08:17 White Blood Count 9.59 K/uL Red Blood Count 2.64 M/uL Hemoglobin 8.3 g/dL Hematocrit 23.8 % Mean Corpuscular Volume 90.2 fL Mean Corpuscular Hemoglobin 31.4 pg Mean Corpuscular Hemoglobin Concent 34.9 g/dl Platelet Count 325 K/uL Mean Platelet Volume 9.4 fL Neutrophils (%) (Auto) 75.2 % Lymphocytes (%) (Auto) 13.1 % Monocytes (%) (Auto) 8.7 % Eosinophils (%) (Auto) 2.6 % Basophils (%) (Auto) 0.2 % Neutrophils # (Auto) 7.21 K/uL Lymphocytes # (Auto) 1.26 K/uL Monocytes # (Auto) 0.83 K/uL Eosinophils # (Auto) 0.25 K/uL Basophils # (Auto) 0.02 K/uL RDW Standard Deviation 51.0 fL RDW Coefficient of Variation 15.4 % Immature Granulocyte % (Auto) 0.2 % Immature Granulocyte # (Auto) 0.02 K/uL Red Blood Cell Morphology Unremarkable Activated Partial Thromboplast Time 48.0 SECONDS Partial Thromboplastin Ratio 1.8 Sodium Level 131 mmol/L Potassium Level 3.9 mmol/L Chloride Level 97 mmol/L Carbon Dioxide Level 25 mmol/L Anion Gap 9.0 mmol/L Blood Urea Nitrogen 5 mg/dl Creatinine 0.71 mg/dl Est Creatinine Clear Calc Drug Dose 89.4 ml/min Estimated GFR () 109.4 Estimated GFR (Non- 94.4 BUN/Creatinine Ratio 6.5 Random Glucose 100 mg/dl Calcium Level 8.4 mg/dl Total Bilirubin 0.9 mg/dl Aspartate Amino Transf (AST/SGOT) 21 U/L Alanine Aminotransferase (ALT/SGPT) 9 U/L Alkaline Phosphatase 71 U/L Total Protein 5.7 gm/dl Albumin 1.7 gm/dl Globulin 4.0 gm/dl Albumin/Globulin Ratio 0.4 Assessment & Plan 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 Hussein Continue IV heparin for now due to recent PE/DVT Plan for L 1st and 2nd toe amputations tomorrow by Vascular dr. Hussein No leukocytosis Wound cx growth gram negative staph Received IV abx with Vanco and Zosyn that were D/C Will make NPO after midnight for toes amputation Will need rehab PE/DVT Coumadin has been held due to surgical procedure Continue IV heparin for now Will resume Coumadin after surgery Hx Syncope Possible related to Vasovagal e Stable Hypotonic Hyponatremia may be due to poor oral intake Received IVF Na 131 Will increase food intake Monitor BMP CAD history Denies any chest pain continue on ASA, Plavix, statin DVT PROPHYLAXIS on Heparin IV Code Status Full code Disposition Plan to go to OR tomorrow for toes amputation Consultants: vascular Current Inpatient Medications: Current Inpatient Medications Medications (Trade) Dose Ordered Sig/Nieves Route Start Time Stop Time Status Last Admin Dose Admin Acetaminophen (Tylenol Tab) 650 mg Q4H PRN PO 09/16/17 14:30 10/16/17 14:29 09/23/17 15:24 650 MG Aspirin (Ecotrin Tab) 81 mg DAILY PO 09/17/17 09:00 10/17/17 08:59 09/29/17 13:47 81 MG Atorvastatin Calcium (Lipitor Tab) 80 mg DAILY PO 09/17/17 09:00 10/17/17 08:59 09/29/17 13:49 80 MG Calcium/Vitamin D (Caltrate Plus Tab) 1 tab BID PO 09/16/17 21:00 10/16/17 20:59 09/28/17 20:33 1 TAB Clopidogrel Bisulfate (plAVix TAB) 75 mg DAILY PO 09/17/17 09:00 10/17/17 08:59 09/29/17 13:48 75 MG Cyanocobalamin (Vitamin B-12 Tab) 1,000 mcg DAILY PO 09/17/17 09:00 10/17/17 08:59 09/28/17 09:03 1,000 MCG Enalapril Maleate (Vasotec Tab) 5 mg DAILY PO 09/17/17 09:00 10/17/17 08:59 Future Hold 09/25/17 07:35 5 MG Folic Acid (Folvite Tab) 1 mg DAILY PO 09/17/17 09:00 10/17/17 08:59 09/28/17 09:01 1 MG Gabapentin (Neurontin Cap) 100 mg TID PO 09/16/17 21:00 10/16/17 20:59 09/29/17 13:51 100 MG Magnesium Oxide (Mag-Ox Tab) 400 mg BID PO 09/16/17 21:00 10/16/17 20:59 09/28/17 20:33 400 MG Multivitamins/ Minerals (Multivitamin W/ Minerals Tab) 1 tab DAILY PO 09/17/17 09:00 10/17/17 08:59 09/28/17 09:00 1 TAB Ranitidine HCl (zANTac TAB) 150 mg DAILY PO 09/17/17 09:00 10/17/17 08:59 09/28/17 09:01 150 MG Sertraline HCl (Zoloft Tab) 50 mg DAILY PO 09/17/17 09:00 10/17/17 08:59 09/29/17 13:48 50 MG Thiamine HCl (Vitamin B-1 Tab) 50 mg DAILY PO 09/17/17 09:00 10/17/17 08:59 09/28/17 09:01 50 MG Ferrous Sulfate (Feosol Tab) 325 mg BID PO 09/16/17 21:00 10/16/17 20:59 09/28/17 20:33 325 MG Nicotine (Nicoderm Cq 14MG Patch) 1 patch QAM TD 09/20/17 09:00 10/20/17 08:59 09/28/17 09:04 1 PATCH Miscellaneous (Remove Nicoderm Patch) 1 ea HS N/A 09/19/17 21:00 10/19/17 20:59 09/28/17 20:30 1 EA Oxycodone/ Acetaminophen (Percocet 5-325mg Tab) `1-2 TABS FOR MODER... Q4H PRN PO 09/24/17 16:15 10/08/17 16:14 09/29/17 06:21 1 TAB Morphine Sulfate (MoRPHine SULFATE INJ) If PO analgesic is orde... Q2H PRN IV 09/24/17 16:15 10/08/17 16:14 09/25/17 08:08 2 MG Ondansetron HCl (Zofran Inj) 4 mg Q6H PRN IV 09/24/17 16:15 10/24/17 16:14 Heparin Sodium/ Dextrose 500 ml @ 23 mls/hr [id number] PRN IV 09/24/17 20:15 10/24/17 20:14 09/29/17 15:24 23 MLS/HR Enteral Nutritional Formula (Boost) 1 can BIDM PO 09/25/17 07:15 10/25/17 07:14 09/28/17 17:45 1 CAN Cefazolin Sodium 5 ml @ 1.667 mls/ min PREOP IV 09/30/17 06:00 09/30/17 18:00
[2017-09-29 23:42] VITALS: BP 108/59; PULSE 86; TEMP 36.5; O2SAT 96
[2017-09-30] VITALS (16 sets, daily range): BP systolic 100–144; BP diastolic 42–75; PULSE 71–112; TEMP 36–36.9; O2SAT 93–97
[2017-09-30] MEDS: HEPARIN 25,000 UNIT/500ML D5W 500 ML IV PRN ×3 (02:13→15:10)
[2017-09-30] MEDS: OXYCODONE/ACETAMINOPHEN 5-325 TAB PO PRN (05:23)
[2017-09-30] MEDS ORDERED: CEFAZOLIN 1000MG IV PUSH 5 ML IV SCH (06:00)
[2017-09-30] MEDS ORDERED: CEFAZOLIN IV 1,000 MG in DEXTROSE 5% 50ML 50 ML IV ONE (06:00)
[2017-09-30] MEDS: BOOST VANILLA PO SCH ×2 (08:30→18:46)
[2017-09-30 09:10] LABS: HEMATOCRIT 21.7 % (42-52); HEMOGLOBIN 7.7 g/dL (14.0-18.0); MEAN CELL VOLUME 90.4 fL (80-100); MEAN CORPUSCULAR HEMOGLOBIN 32.1 pg (25-34); MEAN CORPUSCULAR HGB CONC 35.5 g/dl (32-36); MEAN PLATELET VOLUME 9.1 fL (7.4-10.4); PLATELET COUNT 309 K/uL (130-400); RED CELL DISTRIBUTION WIDTH CV 15.4 % (11.5-14.5); RED CELL DISTRIBUTION WIDTH SD 51.2 fL (36.4-46.3); WHITE BLOOD COUNT 9.26 K/uL (4.8-10.8)
[2017-09-30] MEDS: GABAPENTIN 100 MG CAP PO SCH ×3 (09:16→21:14)
[2017-09-30] MEDS: MAGNESIUM OXIDE 400 MG TAB PO SCH ×2 (09:16→21:12)
[2017-09-30] MEDS: THIAMINE HCL 50 MG TAB PO SCH (09:16)
[2017-09-30] MEDS: SERTRALINE HCL 50 MG TAB PO SCH (09:17)
[2017-09-30] MEDS: NICOTINE 14 MG/24 HR TDSY TD SCH (09:17)
[2017-09-30] MEDS: RANITIDINE HCL 150 MG TAB PO SCH (09:17)
[2017-09-30] MEDS: CYANOCOBALAMIN 500 MCG TAB (VIT B-12) PO SCH (09:17)
[2017-09-30] MEDS: ASPIRIN 81 MG ECTAB PO SCH (09:17)
[2017-09-30] MEDS: CEROVITE ADV FORMULA TAB PO SCH (09:17)
[2017-09-30] MEDS: CALCIUM 600MG + VIT D 400 IU TAB PO SCH ×2 (09:17→21:13)
[2017-09-30] MEDS: FERROUS SULFATE 325 MG TAB PO SCH ×2 (09:17→21:13)
[2017-09-30] MEDS: ATORVASTATIN 40 MG TAB PO SCH (09:18)
[2017-09-30 09:35] LABS: PTT PATIENT 52.3 SECONDS (21.0-31.0)
[2017-09-30 09:37] LABS: CALCIUM 8.3 mg/dl (8.5-10.1); CREATININE 0.77 mg/dl (0.60-1.40); POTASSIUM 3.6 mmol/L (3.5-5.1)
[2017-09-30] MEDS: CLOPIDOGREL BISULFATE 75 MG TAB PO SCH (10:09)
[2017-09-30] MEDS ORDERED: BUPIVACAINE/EPINEPHRINE 0.5% MPF 1:200,000 30 ML VIAL ONE (15:02)
[2017-09-30] MEDS ORDERED: LIDOCAINE HCL 1% 20 ML VIAL ONE (15:03)
--- NOTE | 2017-09-30 16:30 | Progress Note ---
Progress Note Date of Service Sep 30, 2017. Progress Note Patient is for an amputation of his left great and second toes. I have discussed the risks options and benefits of the procedure with the patient. The patient understands the risks options and benefits and agrees to the procedure. I have examined the patient, reviewed the History & Physical and in the interval since the performance of the History & Physical I have noted the following changes of clinical significance: No changes noted
[2017-09-30] MEDS ORDERED: PROPOFOL IV EMULSION 10 MG/ML 20 ML VIAL IV ONE (16:40)
[2017-09-30] MEDS ORDERED: MIDAZOLAM HCL 1 MG/ML 2ML VIAL ONE (16:40)
[2017-09-30] MEDS ORDERED: ONDANSETRON INJ 2 MG/ML 2 ML VIAL ONE (16:40)
[2017-09-30] MEDS ORDERED: LIDOCAINE HCL 2% 2 ML VIAL (20MG/ML) ONE (16:40)
[2017-09-30] MEDS ORDERED: FENTANYL CITRATE INJ 50 MCG/1 ML 2 ML VIAL ONE (16:41)
[2017-09-30] MEDS ORDERED: ROCURONIUM BROMIDE 10 MG/ML 5 ML VIAL IV ONE (16:42)
[2017-09-30] MEDS ORDERED: FENTANYL CITRATE INJ 50 MCG/1 ML 2 ML VIAL IV PRN (16:45)
[2017-09-30] MEDS ORDERED: NURSING VERBAL MED ORDER ONE (16:45)
[2017-09-30] MEDS ORDERED: ONDANSETRON INJ 2 MG/ML 2 ML VIAL IV PRN (16:45)
[2017-09-30] MEDS ORDERED: EpHEDrine SULFATE INJ 50 MG/ML AMP IV PRN (16:45)
[2017-09-30] MEDS ORDERED: ATROPINE SULFATE 0.1 MG/ML 5ML SYR IV PRN (16:45)
--- NOTE | 2017-09-30 17:02 | Progress Note ---
Medicine Progress Note Date & Time of Visit: Sep 30, 2017 at 16:57. Subjective Pt was seen and examined Lying in bed with no distress Pt said that he feels fine Has been NPO today since planing to go to OR Denies any chest pain, palpitation and SOB Objective Last 8 Hrs Date Time Temp Pulse Resp B/P (MAP) Pulse Ox O2 Delivery O2 Flow Rate FiO2 09/30/17 16:35 36.6 86 16 143/65 (91) 98 Room Air 09/30/17 15:16 36.6 79 17 136/65 (88) 97 Room Air Physical Exam: General- No acute distress Head- atraumatic Eyes- PERRL, EOMI ENT- oropharynx clear Neck- supple, no JVD Lungs- clear to auscultation Heart- regular rhythm Abdomen- normal bowel sounds, soft Extremities- Left foot 1st and 2nd toe necrosis, Right foot big toe with some ulceration at the tip, +swelling Neuro- alert, oriented x 3; PERRL, EOMI Skin- warm & dry Laboratory Results: Last 24 Hours Test 09/30/17 08:05 09/30/17 08:31 09/30/17 12:23 Bedside Glucose 121 mg/dl 92 mg/dl White Blood Count 9.26 K/uL Red Blood Count 2.40 M/uL Hemoglobin 7.7 g/dL Hematocrit 21.7 % Mean Corpuscular Volume 90.4 fL Mean Corpuscular Hemoglobin 32.1 pg Mean Corpuscular Hemoglobin Concent 35.5 g/dl RDW Standard Deviation 51.2 fL RDW Coefficient of Variation 15.4 % Platelet Count 309 K/uL Mean Platelet Volume 9.1 fL Activated Partial Thromboplast Time 52.3 SECONDS Partial Thromboplastin Ratio 2.0 Sodium Level 128 mmol/L Potassium Level 3.6 mmol/L Chloride Level 95 mmol/L Carbon Dioxide Level 27 mmol/L Anion Gap 6.0 mmol/L Blood Urea Nitrogen 6 mg/dl Creatinine 0.77 mg/dl Est Creatinine Clear Calc Drug Dose 82.4 ml/min Estimated GFR () 105.8 Estimated GFR (Non- 91.3 BUN/Creatinine Ratio 7.7 Random Glucose 101 mg/dl Calcium Level 8.3 mg/dl Assessment & Plan 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 Hussein Continue IV heparin for now due to recent PE/DVT Plan for L 1st and 2nd toe amputations tomorrow by Vascular dr. Hussein No leukocytosis Wound cx growth gram negative staph Received IV abx with Vanco and Zosyn that were D/C Plan to go to OR today for amputation Keep NPO for now Will need rehab PE/DVT Coumadin has been held due to surgical procedure Continue IV heparin for now Will resume Coumadin after surgery Anemia Possible due to post op Hgb 7.7 today Will transfuse 1 unit PRBC Continue monitor CBC Hx Syncope Possible related to Vasovagal Stable Hypotonic Hyponatremia may be due to poor oral intake/ Was NPO yesterday Received IVF Na 128 Will increase food intake Monitor BMP CAD history Denies any chest pain continue on ASA, Plavix, statin Recent Echo on 08/27 * There is a moderate sized wall motion abnormality involving the inferior and posterior badillo with hypokinesis to akinesis of the base and mid segements. * There is hypokinesis of the apical septum. * Ejection Fraction = 45-50%. * There is no thrombus. DVT PROPHYLAXIS on Heparin IV Code Status Full code Disposition Plan to go to OR tomorrow for toes amputation today Consultants: vascular Current Inpatient Medications: Current Inpatient Medications Medications (Trade) Dose Ordered Sig/Nieves Route Start Time Stop Time Status Last Admin Dose Admin Acetaminophen (Tylenol Tab) 650 mg Q4H PRN PO 09/16/17 14:30 10/16/17 14:29 09/23/17 15:24 650 MG Aspirin (Ecotrin Tab) 81 mg DAILY PO 09/17/17 09:00 10/17/17 08:59 09/30/17 09:17 81 MG Atorvastatin Calcium (Lipitor Tab) 80 mg DAILY PO 09/17/17 09:00 10/17/17 08:59 09/30/17 09:18 80 MG Calcium/Vitamin D (Caltrate Plus Tab) 1 tab BID PO 09/16/17 21:00 10/16/17 20:59 09/30/17 09:17 1 TAB Clopidogrel Bisulfate (plAVix TAB) 75 mg DAILY PO 09/17/17 09:00 10/17/17 08:59 09/30/17 10:09 75 MG Cyanocobalamin (Vitamin B-12 Tab) 1,000 mcg DAILY PO 09/17/17 09:00 10/17/17 08:59 09/30/17 09:17 1,000 MCG Enalapril Maleate (Vasotec Tab) 5 mg DAILY PO 09/17/17 09:00 10/17/17 08:59 Future Hold 09/25/17 07:35 5 MG Folic Acid (Folvite Tab) 1 mg DAILY PO 09/17/17 09:00 10/17/17 08:59 09/30/17 09:16 1 MG Gabapentin (Neurontin Cap) 100 mg TID PO 09/16/17 21:00 10/16/17 20:59 09/30/17 13:49 100 MG Magnesium Oxide (Mag-Ox Tab) 400 mg BID PO 09/16/17 21:00 10/16/17 20:59 09/30/17 09:16 400 MG Multivitamins/ Minerals (Multivitamin W/ Minerals Tab) 1 tab DAILY PO 09/17/17 09:00 10/17/17 08:59 09/30/17 09:17 1 TAB Ranitidine HCl (zANTac TAB) 150 mg DAILY PO 09/17/17 09:00 10/17/17 08:59 09/30/17 09:17 150 MG Sertraline HCl (Zoloft Tab) 50 mg DAILY PO 09/17/17 09:00 10/17/17 08:59 09/30/17 09:17 50 MG Thiamine HCl (Vitamin B-1 Tab) 50 mg DAILY PO 09/17/17 09:00 10/17/17 08:59 09/30/17 09:16 50 MG Ferrous Sulfate (Feosol Tab) 325 mg BID PO 09/16/17 21:00 10/16/17 20:59 09/30/17 09:17 325 MG Nicotine (Nicoderm Cq 14MG Patch) 1 patch QAM TD 09/20/17 09:00 10/20/17 08:59 09/30/17 09:17 1 PATCH Miscellaneous (Remove Nicoderm Patch) 1 ea HS N/A 09/19/17 21:00 10/19/17 20:59 09/28/17 20:30 1 EA Oxycodone/ Acetaminophen (Percocet 5-325mg Tab) `1-2 TABS FOR MODER... Q4H PRN PO 09/24/17 16:15 10/08/17 16:14 09/30/17 05:23 2 TAB Morphine Sulfate (MoRPHine SULFATE INJ) If PO analgesic is orde... Q2H PRN IV 09/24/17 16:15 10/08/17 16:14 09/25/17 08:08 2 MG Ondansetron HCl (Zofran Inj) 4 mg Q6H PRN IV 09/24/17 16:15 10/24/17 16:14 Heparin Sodium/ Dextrose 500 ml @ 23 mls/hr [id number] PRN IV 09/24/17 20:15 10/24/17 20:14 09/30/17 15:10 23 MLS/HR Enteral Nutritional Formula (Boost) 1 can BIDM PO 09/25/17 07:15 10/25/17 07:14 09/28/17 17:45 1 CAN Cefazolin Sodium 5 ml @ 1.667 mls/ min PREOP IV 09/30/17 06:00 09/30/17 18:00 Miscellaneous Information (Nursing Verbal Med Order) 1 ea ONE ONCE N/A 09/30/17 16:45 09/30/17 16:46 UNV Fentanyl Citrate (Fentanyl Inj) 25 mcg Q5M PRN IV 09/30/17 16:45 10/01/17 16:44 UNV Ondansetron HCl (Zofran Inj) 4 mg ONE PRN IV 09/30/17 16:45 UNV Ephedrine Sulfate (EpHEDrine SULFATE INJ) 5 mg Q5M PRN IV 09/30/17 16:45 10/01/17 16:44 UNV Atropine Sulfate (Atropine Sulfate 0.1MG/Ml Inj) 0.5 mg Q1M PRN IV 09/30/17 16:45 10/01/17 16:44 UNV
--- NOTE | 2017-09-30 17:40 | [facility] Post Operative Brief Note ---
Immediate Operative Summary Operative Date Sep 30, 2017. Pre-Operative Diagnosis Gangrene left 1st and 2nd toes Post-Operative Diagnosis Gangrene left 1st and 2nd toes Procedure(s) Performed Left Amputation Toe 1st and 2nd Surgeon Dr. Hussein Shopfitter Surgeon(s) Sara Rodriguez PA-C, Rachelle Lyn Estimated Blood Loss 50cc Findings Good bleeding and viable tissue Specimens A. Left 1st and 2nd toes Anesthesia Gen Complication(s) None Disposition Recovery Room / PACU
--- NOTE | 2017-09-30 18:37 | Anesthesiology Progress Note ---
Anesthesia Post Op Note Date & Time Sep 30, 2017 at 18:36 Vital Signs Pain Intensity: 0 Vital Signs Past 12 Hours Date Time Temp Pulse Resp B/P (MAP) Pulse Ox O2 Delivery O2 Flow Rate FiO2 09/30/17 18:16 36.4 140/72 09/30/17 18:15 85 15 96 09/30/17 18:15 89 15 09/30/17 18:11 134/75 09/30/17 18:10 82 18 09/30/17 18:10 89 18 96 09/30/17 18:06 134/93 09/30/17 18:05 82 14 98 09/30/17 18:05 82 14 09/30/17 18:01 137/80 09/30/17 18:00 81 15 99 09/30/17 18:00 79 15 09/30/17 17:56 138/65 09/30/17 17:55 80 14 09/30/17 17:55 81 14 100 09/30/17 17:51 143/74 09/30/17 17:50 83 18 09/30/17 17:50 86 18 98 09/30/17 17:46 154/78 09/30/17 17:45 36.5 84 14 154/78 100 Oxymask 4 09/30/17 16:35 36.6 86 16 143/65 (91) 98 Room Air 09/30/17 15:16 36.6 79 17 136/65 (88) 97 Room Air 09/30/17 07:35 Room Air 09/30/17 07:16 36.6 89 18 117/53 (74) 93 Room Air Notes Mental Status: alert / awake / arousable, participated in evaluation Pt Amnestic to Procedure: Yes Nausea / Vomiting: adequately controlled Pain: adequately controlled Airway Patency, RR, SpO2: stable & adequate BP & HR: stable & adequate Hydration State: stable & adequate Anesthetic Complications: no major complications apparent
[2017-10-01] VITALS: BP 103/53; PULSE 88; TEMP 36.6; O2SAT 95
[2017-10-01 03:30] VITALS: BP 124/64; PULSE 89; TEMP 36.6; O2SAT 93
[2017-10-01] MEDS: OXYCODONE/ACETAMINOPHEN 5-325 TAB PO PRN (03:49)
[2017-10-01] MEDS: HEPARIN 25,000 UNIT/500ML D5W 500 ML IV PRN ×3 (06:01→13:06)
[2017-10-01 07:15] VITALS: BP 116/62; PULSE 51; TEMP 36.8; O2SAT 96
[2017-10-01 07:25] LABS: HEMATOCRIT 25.5 % (42-52); HEMOGLOBIN 8.8 g/dL (14.0-18.0); MEAN CELL VOLUME 88.2 fL (80-100); MEAN CORPUSCULAR HEMOGLOBIN 30.4 pg (25-34); MEAN CORPUSCULAR HGB CONC 34.5 g/dl (32-36); MEAN PLATELET VOLUME 9.4 fL (7.4-10.4); PLATELET COUNT 313 K/uL (130-400); RED CELL DISTRIBUTION WIDTH CV 16.6 % (11.5-14.5); RED CELL DISTRIBUTION WIDTH SD 53.2 fL (36.4-46.3)
[2017-10-01 07:36] LABS: PTT PATIENT 35.3 SECONDS (21.0-31.0)
[2017-10-01 07:55] LABS: CALCIUM 8.4 mg/dl (8.5-10.1); CREATININE 0.92 mg/dl (0.60-1.40); POTASSIUM 3.9 mmol/L (3.5-5.1)
[2017-10-01] MEDS: BOOST VANILLA PO SCH ×2 (08:30→17:45)
--- NOTE | 2017-10-01 08:30 | Anesthesiology Progress Note ---
Anesthesia Post Op Note Date & Time Oct 01, 2017 at 08:30 Vital Signs Pain Intensity: 8.0 Vital Signs Past 12 Hours Date Time Temp Pulse Resp B/P (MAP) Pulse Ox O2 Delivery O2 Flow Rate FiO2 10/01/17 07:15 36.8 51 20 116/62 (80) 96 Room Air 10/01/17 03:30 36.6 89 16 124/64 (84) 93 Room Air 10/01/17 00:00 36.6 88 16 103/53 95 09/30/17 23:40 Room Air 09/30/17 23:30 36.7 90 17 100/59 (73) 94 Room Air 09/30/17 23:07 36.6 88 16 110/49 93 09/30/17 22:32 36.6 90 17 106/42 (63) 94 Room Air 09/30/17 22:30 36.6 90 17 106/42 94 09/30/17 22:02 36.7 93 17 102/55 95 09/30/17 21:30 36.6 91 17 117/66 (83) 94 Room Air 09/30/17 21:30 36.6 91 17 117/66 94 09/30/17 21:01 36.7 83 16 105/63 94 09/30/17 20:45 36.9 87 15 106/61 95 09/30/17 20:31 36.0 71 18 128/66 97 Notes Mental Status: alert / awake / arousable, participated in evaluation Pt Amnestic to Procedure: Yes Nausea / Vomiting: adequately controlled Pain: adequately controlled Airway Patency, RR, SpO2: stable & adequate BP & HR: stable & adequate Hydration State: stable & adequate Anesthetic Complications: no major complications apparent
[2017-10-01] MEDS: NICOTINE 14 MG/24 HR TDSY TD SCH (09:00)
[2017-10-01] MEDS: GABAPENTIN 100 MG CAP PO SCH ×3 (09:09→22:02)
[2017-10-01] MEDS: FERROUS SULFATE 325 MG TAB PO SCH ×2 (09:10→22:02)
[2017-10-01] MEDS: ATORVASTATIN 40 MG TAB PO SCH (09:10)
[2017-10-01] MEDS: CLOPIDOGREL BISULFATE 75 MG TAB PO SCH (09:10)
[2017-10-01] MEDS: CYANOCOBALAMIN 500 MCG TAB (VIT B-12) PO SCH (09:10)
[2017-10-01] MEDS: ASPIRIN 81 MG ECTAB PO SCH (09:10)
[2017-10-01] MEDS: CALCIUM 600MG + VIT D 400 IU TAB PO SCH ×2 (09:11→22:02)
[2017-10-01] MEDS: SERTRALINE HCL 50 MG TAB PO SCH (09:11)
[2017-10-01] MEDS: THIAMINE HCL 50 MG TAB PO SCH (09:11)
[2017-10-01] MEDS: CEROVITE ADV FORMULA TAB PO SCH (09:11)
[2017-10-01] MEDS: RANITIDINE HCL 150 MG TAB PO SCH (09:11)
[2017-10-01] MEDS: MAGNESIUM OXIDE 400 MG TAB PO SCH ×2 (09:17→22:03)
[2017-10-01] MEDS ORDERED: HEPARIN IV BOLUS 3,000 UNIT in SYRINGE 0 ML IV ONE (13:30)
--- NOTE | 2017-10-01 14:41 | Progress Note ---
Progress Note Date of Service: Oct 01, 2017. Subjective No complaints Problem List Medical Problems: (1) Change in mental status Status: Acute (2) Closed fracture of neck of left humerus Status: Acute (3) Dehydration Status: Acute (4) Dehydration Status: Acute (5) History of alcohol abuse Status: Chronic (6) Leukocytosis Status: Acute (7) Multiple contusions Status: Acute (8) STEMI (ST elevation myocardial infarction) Status: Acute (9) STEMI (ST elevation myocardial infarction) Status: Acute (10) UTI (urinary tract infection) Status: Acute Objective Vital Signs Vital Signs Past 12 Hours Date Time Temp Pulse Resp B/P (MAP) Pulse Ox O2 Delivery O2 Flow Rate FiO2 10/01/17 07:57 Room Air 10/01/17 07:15 36.8 51 20 116/62 (80) 96 Room Air 10/01/17 03:30 36.6 89 16 124/64 (84) 93 Room Air Exam Patient awake and alert VSS Afebrile Dressing intact and dry. Intake & Output 8-Hour Column 10/01/17 10/02/17 10/02/17 16:00 00:00 08:00 Intake Total 393 ml Output Total 525 ml Balance -132 ml 24-Hour Column 10/02/17 08:00 Intake Total 393 ml Output Total 525 ml Balance -132 ml Laboratory and Microbiology Results Past 24 Hours Test 09/30/17 18:49 09/30/17 20:28 10/01/17 06:42 10/01/17 08:06 Range/Units Bedside Glucose 115 146 127 70-99 mg/dl White Blood Count 12.10 4.8-10.8 K/uL Red Blood Count 2.89 4.7-6.1 M/uL Hemoglobin 8.8 14.0-18.0 g/dL Hematocrit 25.5 42-52 % Mean Corpuscular Volume 88.2 80-100 fL Mean Corpuscular Hemoglobin 30.4 25-34 pg Mean Corpuscular Hemoglobin Concent 34.5 32-36 g/dl RDW Standard Deviation 53.2 36.4-46.3 fL RDW Coefficient of Variation 16.6 11.5-14.5 % Platelet Count 313 130-400 K/uL Mean Platelet Volume 9.4 7.4-10.4 fL Activated Partial Thromboplast Time 35.3 21.0-31.0 SECONDS Partial Thromboplastin Ratio 1.4 Sodium Level 129 136-145 mmol/L Potassium Level 3.9 3.5-5.1 mmol/L Chloride Level 96 98-107 mmol/L Carbon Dioxide Level 26 21-32 mmol/L Anion Gap 8.0 3-11 mmol/L Blood Urea Nitrogen 9 7-18 mg/dl Creatinine 0.92 0.60-1.40 mg/dl Est Creatinine Clear Calc Drug Dose 69.0 ml/min Estimated GFR () 96.6 Estimated GFR (Non- 83.4 BUN/Creatinine Ratio 10.2 10-20 Random Glucose 118 70-99 mg/dl Calcium Level 8.4 8.5-10.1 mg/dl Test 10/01/17 11:53 Range/Units Activated Partial Thromboplast Time 43.0 21.0-31.0 SECONDS Partial Thromboplastin Ratio 1.7 Imp: Post toe amp Plan: Will check wound tomorrow. If ok can go to rehab.
[2017-10-01 15:15] VITALS: BP 110/67; PULSE 84; TEMP 36.8; O2SAT 96
--- NOTE | 2017-10-01 19:15 | Progress Note ---
Medicine Progress Note Date & Time of Visit: Oct 01, 2017 at 13:04. Subjective Pt was seen and examined Lying in bed with no distress Pt said that he feels fine had surgery done yesterday for the toes amputation and tolerates well Denies any chest pain, palpitation, dizziness and sob Objective Last 8 Hrs Date Time Temp Pulse Resp B/P (MAP) Pulse Ox O2 Delivery O2 Flow Rate FiO2 10/01/17 15:15 36.8 84 18 110/67 (81) 96 Physical Exam: General- No acute distress Head- atraumatic Eyes- PERRL, EOMI ENT- oropharynx clear Neck- supple, no JVD Lungs- clear to auscultation Heart- regular rhythm Abdomen- normal bowel sounds, soft Extremities- Left foot 1st and 2nd toes amputation, anterior part of left foot with dressing wrap, Right foot big toe with some ulceration at the tip, + swelling Neuro- alert, oriented, PERRL, EOMI Skin- warm & dry Laboratory Results: Last 24 Hours Test 09/30/17 20:28 10/01/17 06:42 10/01/17 08:06 10/01/17 11:53 Bedside Glucose 146 mg/dl 127 mg/dl White Blood Count 12.10 K/uL Red Blood Count 2.89 M/uL Hemoglobin 8.8 g/dL Hematocrit 25.5 % Mean Corpuscular Volume 88.2 fL Mean Corpuscular Hemoglobin 30.4 pg Mean Corpuscular Hemoglobin Concent 34.5 g/dl RDW Standard Deviation 53.2 fL RDW Coefficient of Variation 16.6 % Platelet Count 313 K/uL Mean Platelet Volume 9.4 fL Activated Partial Thromboplast Time 35.3 SECONDS 43.0 SECONDS Partial Thromboplastin Ratio 1.4 1.7 Sodium Level 129 mmol/L Potassium Level 3.9 mmol/L Chloride Level 96 mmol/L Carbon Dioxide Level 26 mmol/L Anion Gap 8.0 mmol/L Blood Urea Nitrogen 9 mg/dl Creatinine 0.92 mg/dl Est Creatinine Clear Calc Drug Dose 69.0 ml/min Estimated GFR () 96.6 Estimated GFR (Non- 83.4 BUN/Creatinine Ratio 10.2 Random Glucose 118 mg/dl Calcium Level 8.4 mg/dl Assessment & Plan 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 Hussein Continue IV heparin for now due to recent PE/DVT Plan for L 1st and 2nd toe amputations tomorrow by Vascular dr. Hussein No leukocytosis Wound cx growth gram negative staph Received IV abx with Vanco and Zosyn that were D/C Plan to go to OR today for amputation Keep NPO for now Will need rehab 10/01 S/p day 1 Left 1st and 2nd toes amputation No post op amputation Tolerated well pain controlled talk to Dr. Hussein for the right 1st toe gangrene at the tip No surgical amputation for the right 1st toe vascular recommended to continue monitor PE/DVT Coumadin has been held due to surgical procedure Continue IV heparin for now Will resume Coumadin tomorrow Anemia Possible due to post op Hgb 8.8 today Transfused 1 unit PRBC yesterday Continue monitor CBC Hx Syncope Possible related to Vasovagal Stable Hypotonic Hyponatremia may be due to poor oral intake/ Was NPO yesterday Received IVF Na 129 Increase food intake Monitor BMP CAD history Denies any chest pain continue on ASA, Plavix, statin Recent Echo on 08/27 * There is a moderate sized wall motion abnormality involving the inferior and posterior badillo with hypokinesis to akinesis of the base and mid segements. * There is hypokinesis of the apical septum. * Ejection Fraction = 45-50%. * There is no thrombus. DVT PROPHYLAXIS on Heparin IV Code Status Full code Disposition Possible discharge to rehab tomorrow Consultants: vascular Current Inpatient Medications: Current Inpatient Medications Medications (Trade) Dose Ordered Sig/Nieves Route Start Time Stop Time Status Last Admin Dose Admin Acetaminophen (Tylenol Tab) 650 mg Q4H PRN PO 09/16/17 14:30 10/16/17 14:29 09/23/17 15:24 650 MG Aspirin (Ecotrin Tab) 81 mg DAILY PO 09/17/17 09:00 10/17/17 08:59 10/01/17 09:10 81 MG Atorvastatin Calcium (Lipitor Tab) 80 mg DAILY PO 09/17/17 09:00 10/17/17 08:59 10/01/17 09:10 80 MG Calcium/Vitamin D (Caltrate Plus Tab) 1 tab BID PO 09/16/17 21:00 10/16/17 20:59 10/01/17 09:11 1 TAB Clopidogrel Bisulfate (plAVix TAB) 75 mg DAILY PO 09/17/17 09:00 10/17/17 08:59 10/01/17 09:10 75 MG Cyanocobalamin (Vitamin B-12 Tab) 1,000 mcg DAILY PO 09/17/17 09:00 10/17/17 08:59 10/01/17 09:10 1,000 MCG Enalapril Maleate (Vasotec Tab) 5 mg DAILY PO 09/17/17 09:00 10/17/17 08:59 Future Hold 09/25/17 07:35 5 MG Folic Acid (Folvite Tab) 1 mg DAILY PO 09/17/17 09:00 10/17/17 08:59 10/01/17 09:11 1 MG Gabapentin (Neurontin Cap) 100 mg TID PO 09/16/17 21:00 10/16/17 20:59 10/01/17 13:53 100 MG Magnesium Oxide (Mag-Ox Tab) 400 mg BID PO 09/16/17 21:00 10/16/17 20:59 10/01/17 09:17 400 MG Multivitamins/ Minerals (Multivitamin W/ Minerals Tab) 1 tab DAILY PO 09/17/17 09:00 10/17/17 08:59 10/01/17 09:11 1 TAB Ranitidine HCl (zANTac TAB) 150 mg DAILY PO 09/17/17 09:00 10/17/17 08:59 10/01/17 09:11 150 MG Sertraline HCl (Zoloft Tab) 50 mg DAILY PO 09/17/17 09:00 10/17/17 08:59 10/01/17 09:11 50 MG Thiamine HCl (Vitamin B-1 Tab) 50 mg DAILY PO 09/17/17 09:00 10/17/17 08:59 10/01/17 09:11 50 MG Ferrous Sulfate (Feosol Tab) 325 mg BID PO 09/16/17 21:00 10/16/17 20:59 10/01/17 09:10 325 MG Nicotine (Nicoderm Cq 14MG Patch) 1 patch QAM TD 09/20/17 09:00 10/20/17 08:59 12/21/17 09:17 1 PATCH Miscellaneous (Remove Nicoderm Patch) 1 ea HS N/A 09/19/17 21:00 10/19/17 20:59 09/30/17 21:14 1 EA Oxycodone/ Acetaminophen (Percocet 5-325mg Tab) `1-2 TABS FOR MODER... Q4H PRN PO 09/24/17 16:15 10/08/17 16:14 10/01/17 03:49 2 TAB Morphine Sulfate (MoRPHine SULFATE INJ) If PO analgesic is orde... Q2H PRN IV 09/24/17 16:15 10/08/17 16:14 09/25/17 08:08 2 MG Ondansetron HCl (Zofran Inj) 4 mg Q6H PRN IV 09/24/17 16:15 10/24/17 16:14 Enteral Nutritional Formula (Boost) 1 can BIDM PO 09/25/17 07:15 10/25/17 07:14 10/01/17 08:30 1 CAN Heparin Sodium/ Dextrose 500 ml @ 26 mls/hr [id number] PRN IV 10/01/17 06:00 10/31/17 05:59 10/01/17 13:06 26 MLS/HR
[2017-10-01 19:30] VITALS: BP 105/42; PULSE 85; TEMP 36.7; O2SAT 94
[2017-10-01 21:24] LABS: PTT PATIENT 51.8 SECONDS (21.0-31.0)
[2017-10-01 23:07] VITALS: BP 120/63; PULSE 85; TEMP 36.6; O2SAT 94
[2017-10-02] MEDS: HEPARIN 25,000 UNIT/500ML D5W 500 ML IV PRN ×2 (00:12→07:24)
[2017-10-02 03:35] VITALS: BP 116/63; PULSE 75; TEMP 36.7; O2SAT 92
[2017-10-02 06:07] LABS: HEMATOCRIT 24.1 % (42-52); HEMOGLOBIN 8.3 g/dL (14.0-18.0); MEAN CELL VOLUME 89.3 fL (80-100); MEAN CORPUSCULAR HEMOGLOBIN 30.7 pg (25-34); MEAN CORPUSCULAR HGB CONC 34.4 g/dl (32-36); PLATELET COUNT 326 K/uL (130-400); RED CELL DISTRIBUTION WIDTH CV 16.6 % (11.5-14.5); RED CELL DISTRIBUTION WIDTH SD 53.9 fL (36.4-46.3)
[2017-10-02 06:36] LABS: PTT PATIENT 53.4 SECONDS (21.0-31.0)
[2017-10-02 06:45] LABS: CALCIUM 8.8 mg/dl (8.5-10.1); CREATININE 0.8 mg/dl (0.60-1.40); POTASSIUM 3.6 mmol/L (3.5-5.1)
[2017-10-02 08:01] VITALS: BP 117/62; PULSE 76; TEMP 36.9; O2SAT 93
[2017-10-02] MEDS: BOOST VANILLA PO SCH (08:30)
[2017-10-02] MEDS: NICOTINE 14 MG/24 HR TDSY TD SCH (09:00)
[2017-10-02] MEDS: ASPIRIN 81 MG ECTAB PO SCH (09:11)
[2017-10-02] MEDS: CYANOCOBALAMIN 500 MCG TAB (VIT B-12) PO SCH (09:12)
[2017-10-02] MEDS: SERTRALINE HCL 50 MG TAB PO SCH (09:12)
[2017-10-02] MEDS: CLOPIDOGREL BISULFATE 75 MG TAB PO SCH (09:12)
[2017-10-02] MEDS: FERROUS SULFATE 325 MG TAB PO SCH (09:12)
[2017-10-02] MEDS: CEROVITE ADV FORMULA TAB PO SCH (09:12)
[2017-10-02] MEDS: RANITIDINE HCL 150 MG TAB PO SCH (09:12)
[2017-10-02] MEDS: ATORVASTATIN 40 MG TAB PO SCH (09:12)
[2017-10-02] MEDS: CALCIUM 600MG + VIT D 400 IU TAB PO SCH (09:13)
[2017-10-02] MEDS: GABAPENTIN 100 MG CAP PO SCH ×2 (09:13→14:06)
[2017-10-02] MEDS: THIAMINE HCL 50 MG TAB PO SCH (09:14)
[2017-10-02] MEDS: MAGNESIUM OXIDE 400 MG TAB PO SCH (09:15)
--- NOTE | 2017-10-02 10:11 | Progress Note ---
Progress Note Date of Service: Oct 02, 2017. Subjective No complaints Problem List Medical Problems: (1) Change in mental status Status: Acute (2) Closed fracture of neck of left humerus Status: Acute (3) Dehydration Status: Acute (4) Dehydration Status: Acute (5) History of alcohol abuse Status: Chronic (6) Leukocytosis Status: Acute (7) Multiple contusions Status: Acute (8) STEMI (ST elevation myocardial infarction) Status: Acute (9) STEMI (ST elevation myocardial infarction) Status: Acute (10) UTI (urinary tract infection) Status: Acute Objective Vital Signs Vital Signs Past 12 Hours Date Time Temp Pulse Resp B/P (MAP) Pulse Ox O2 Delivery O2 Flow Rate FiO2 10/02/17 09:20 Room Air 10/02/17 08:01 36.9 76 18 117/62 (80) 93 Room Air 10/02/17 03:35 36.7 75 16 116/63 (80) 92 Room Air 10/02/17 00:00 Room Air 10/01/17 23:07 36.6 85 16 120/63 (82) 94 Room Air Exam VSS Afebrile Wound dry. Slightly reddened along edge. Edges appear viable. Laboratory and Microbiology Results Past 24 Hours Test 10/01/17 11:53 10/01/17 20:32 10/02/17 05:36 Range/Units Activated Partial Thromboplast Time 43.0 51.8 53.4 21.0-31.0 SECONDS Partial Thromboplastin Ratio 1.7 2.0 2.1 White Blood Count 9.50 4.8-10.8 K/uL Red Blood Count 2.70 4.7-6.1 M/uL Hemoglobin 8.3 14.0-18.0 g/dL Hematocrit 24.1 42-52 % Mean Corpuscular Volume 89.3 80-100 fL Mean Corpuscular Hemoglobin 30.7 25-34 pg Mean Corpuscular Hemoglobin Concent 34.4 32-36 g/dl RDW Standard Deviation 53.9 36.4-46.3 fL RDW Coefficient of Variation 16.6 11.5-14.5 % Platelet Count 326 130-400 K/uL Mean Platelet Volume 9.0 7.4-10.4 fL Sodium Level 131 136-145 mmol/L Potassium Level 3.6 3.5-5.1 mmol/L Chloride Level 96 98-107 mmol/L Carbon Dioxide Level 29 21-32 mmol/L Anion Gap 6.0 3-11 mmol/L Blood Urea Nitrogen 10 7-18 mg/dl Creatinine 0.80 0.60-1.40 mg/dl Est Creatinine Clear Calc Drug Dose 79.3 ml/min Estimated GFR () 104.2 Estimated GFR (Non- 89.9 BUN/Creatinine Ratio 12.8 10-20 Random Glucose 97 70-99 mg/dl Calcium Level 8.8 8.5-10.1 mg/dl Imp: Left foot toe amps and revasc Plan: Routine wound care and a course of antibiotics for 7 days. Can go to rehab
--- NOTE | 2017-10-02 13:40 | Progress Note ---
Medicine Progress Note Date & Time of Visit: Oct 02, 2017 at 13:33. Subjective Pt was seen and examined Lying in bed with no distress Pt said that he feels ok Bleeding has been stable Update provided to Daughter Denies any chest pain, palpitation, dizziness and SOB Objective Last 8 Hrs Date Time Temp Pulse Resp B/P (MAP) Pulse Ox O2 Delivery O2 Flow Rate FiO2 10/02/17 09:20 Room Air 10/02/17 08:01 36.9 76 18 117/62 (80) 93 Room Air Physical Exam: General- No acute distress Head- atraumatic Eyes- PERRL, EOMI ENT- oropharynx clear Neck- supple, no JVD Lungs- clear to auscultation Heart- regular rhythm Abdomen- normal bowel sounds, soft Extremities- Left foot 1st and 2nd toes amputation with stitching present with some dry blood. Right foot big toe with some ulceration at the tip, +swelling Neuro- alert, oriented, PERRL, EOMI Skin- warm & dry Laboratory Results: Last 24 Hours Test 10/01/17 20:32 10/02/17 05:36 Activated Partial Thromboplast Time 51.8 SECONDS 53.4 SECONDS Partial Thromboplastin Ratio 2.0 2.1 White Blood Count 9.50 K/uL Red Blood Count 2.70 M/uL Hemoglobin 8.3 g/dL Hematocrit 24.1 % Mean Corpuscular Volume 89.3 fL Mean Corpuscular Hemoglobin 30.7 pg Mean Corpuscular Hemoglobin Concent 34.4 g/dl RDW Standard Deviation 53.9 fL RDW Coefficient of Variation 16.6 % Platelet Count 326 K/uL Mean Platelet Volume 9.0 fL Sodium Level 131 mmol/L Potassium Level 3.6 mmol/L Chloride Level 96 mmol/L Carbon Dioxide Level 29 mmol/L Anion Gap 6.0 mmol/L Blood Urea Nitrogen 10 mg/dl Creatinine 0.80 mg/dl Est Creatinine Clear Calc Drug Dose 79.3 ml/min Estimated GFR () 104.2 Estimated GFR (Non- 89.9 BUN/Creatinine Ratio 12.8 Random Glucose 97 mg/dl Calcium Level 8.8 mg/dl Assessment & Plan 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 Hussein Continue IV heparin for now due to recent PE/DVT Plan for L 1st and 2nd toe amputations tomorrow by Vascular dr. Hussein No leukocytosis Wound cx growth gram negative staph Received IV abx with Vanco and Zosyn that were D/C Plan to go to OR today for amputation Keep NPO for now Will need rehab 10/02 S/p day 3 Left 1st and 2nd toes amputation No post op amputation Tolerated well pain controlled Talk to Dr. Hussein for the right 1st toe gangrene at the tip No surgical amputation for the right 1st toe vascular recommended to continue monitor PE/DVT Coumadin has been held due to surgical procedure Continue IV heparin for now Will resume Coumadin tomorrow Anemia Possible due to post op Hgb 8.8 today Transfused 1 unit PRBC yesterday Continue monitor CBC Hx Syncope Possible related to Vasovagal Stable Hypotonic Hyponatremia may be due to poor oral intake/ Was NPO yesterday Received IVF Na 129 Increase food intake Monitor BMP CAD history Denies any chest pain continue on ASA, Plavix, statin Recent Echo on 08/27 * There is a moderate sized wall motion abnormality involving the inferior and posterior badillo with hypokinesis to akinesis of the base and mid segements. * There is hypokinesis of the apical septum. * Ejection Fraction = 45-50%. * There is no thrombus. DVT PROPHYLAXIS on Heparin IV Code Status Full code Disposition Possible discharge to rehab tomorrow Consultants: vascular Current Inpatient Medications: Current Inpatient Medications Medications (Trade) Dose Ordered Sig/Nieves Route Start Time Stop Time Status Last Admin Dose Admin Acetaminophen (Tylenol Tab) 650 mg Q4H PRN PO 09/16/17 14:30 10/16/17 14:29 09/23/17 15:24 650 MG Aspirin (Ecotrin Tab) 81 mg DAILY PO 09/17/17 09:00 10/17/17 08:59 10/02/17 09:11 81 MG Atorvastatin Calcium (Lipitor Tab) 80 mg DAILY PO 09/17/17 09:00 10/17/17 08:59 10/02/17 09:12 80 MG Calcium/Vitamin D (Caltrate Plus Tab) 1 tab BID PO 09/16/17 21:00 10/16/17 20:59 10/02/17 09:13 1 TAB Clopidogrel Bisulfate (plAVix TAB) 75 mg DAILY PO 09/17/17 09:00 10/17/17 08:59 10/02/17 09:12 75 MG Cyanocobalamin (Vitamin B-12 Tab) 1,000 mcg DAILY PO 09/17/17 09:00 10/17/17 08:59 10/02/17 09:12 1,000 MCG Enalapril Maleate (Vasotec Tab) 5 mg DAILY PO 09/17/17 09:00 10/17/17 08:59 Future Hold 09/25/17 07:35 5 MG Folic Acid (Folvite Tab) 1 mg DAILY PO 09/17/17 09:00 10/17/17 08:59 10/02/17 09:13 1 MG Gabapentin (Neurontin Cap) 100 mg TID PO 09/16/17 21:00 10/16/17 20:59 10/02/17 09:13 100 MG Magnesium Oxide (Mag-Ox Tab) 400 mg BID PO 09/16/17 21:00 10/16/17 20:59 10/02/17 09:15 400 MG Multivitamins/ Minerals (Multivitamin W/ Minerals Tab) 1 tab DAILY PO 09/17/17 09:00 10/17/17 08:59 10/02/17 09:12 1 TAB Ranitidine HCl (zANTac TAB) 150 mg DAILY PO 09/17/17 09:00 10/17/17 08:59 10/02/17 09:12 150 MG Sertraline HCl (Zoloft Tab) 50 mg DAILY PO 09/17/17 09:00 10/17/17 08:59 10/02/17 09:12 50 MG Thiamine HCl (Vitamin B-1 Tab) 50 mg DAILY PO 09/17/17 09:00 10/17/17 08:59 10/02/17 09:14 50 MG Ferrous Sulfate (Feosol Tab) 325 mg BID PO 09/16/17 21:00 10/16/17 20:59 10/02/17 09:12 325 MG Nicotine (Nicoderm Cq 14MG Patch) 1 patch QAM TD 09/20/17 09:00 10/20/17 08:59 09/30/17 09:17 1 PATCH Miscellaneous (Remove Nicoderm Patch) 1 ea HS N/A 09/19/17 21:00 10/19/17 20:59 09/30/17 21:14 1 EA Oxycodone/ Acetaminophen (Percocet 5-325mg Tab) `1-2 TABS FOR MODER... Q4H PRN PO 09/24/17 16:15 10/08/17 16:14 10/01/17 03:49 2 TAB Morphine Sulfate (MoRPHine SULFATE INJ) If PO analgesic is orde... Q2H PRN IV 09/24/17 16:15 10/08/17 16:14 09/25/17 08:08 2 MG Ondansetron HCl (Zofran Inj) 4 mg Q6H PRN IV 09/24/17 16:15 10/24/17 16:14 Enteral Nutritional Formula (Boost) 1 can BIDM PO 09/25/17 07:15 10/25/17 07:14 10/02/17 08:30 1 CAN Heparin Sodium/ Dextrose 500 ml @ 26 mls/hr [id number] PRN IV 10/01/17 06:00 10/31/17 05:59 10/02/17 07:24 26 MLS/HR Warfarin Sodium (Coumadin Tab) 2 mg DAILY@1600 PO 10/02/17 16:00 11/01/17 15:59 Amoxicillin/ Clavulanate Potassium (Augmentin Tab) 875 mg BIDM PO 10/02/17 17:45 10/09/17 08:00
[2017-10-02] MEDS ORDERED: ENOXAPARIN 80 MG/0.8 ML SYR SQ SCH (14:30)
[2017-10-02 14:37] VITALS: BP 117/62; PULSE 76; TEMP 36.9; O2SAT 93
[2017-10-02] MEDS ORDERED: NICO14DI5 TD (15:09)
[2017-10-02] MEDS ORDERED: LVNIS80 SQ (15:09)
[2017-10-02] MEDS ORDERED: AMOX1TAB43 PO (15:09)
[2017-10-02] MEDS ORDERED: OXYC-57 PO (15:09)
--- NOTE | 2017-10-02 15:18 | Discharge Instructions ---
Discharge Instructions Date of Service Oct 02, 2017. 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 Instructions / Follow-Up Instructions / Follow-Up Transfer to [facility] Please call your primary care provider once discharge from rehab Follow up with Vascular Dr. Hussein between 1 to 2 weeks ( Call for the appointment) Limb check (Lower extremities) and notify vascular with any concern Complete course of antibiotic Continue daily wound care Continue wearing left Darco shoe Continue physical therapy/ occupational therapy Fall precaution Continue therapeutic lovenox until INR at goal (Between 2 to 3) Monitor INR Continue coumadin Hold narcotic if patient becomes lethargy and drowsy Check BMP within 1 week to monitor electrolytes Check CBC to monitor hemoglobin Current Hospital Diet Patient's current hospital diet: Diabetes Type 2 Diet, AHA Diet (Heart Healthy) Discharge Diet Recommended Diet: AHA Diet (Heart Healthy) Procedures Procedures Performed: Left Amputation Toe 1st and 2nd Pending Studies Studies pending at discharge: no Medical Emergencies . Who to Call and When: Medical Emergencies: If at any time you feel your situation is an emergency, please call 911 immediately. . Non-Emergent Contact Non-Emergency issues call your: Primary Care Provider Call Non-Emergent contact if: you have a fever, you have any medication questions . . "Provider Documentation" section prepared by Raysa Jain. . VTE Core Measure Inpt VTE Proph given/why not?: Enoxaparin (Lovenox)SQ, Unfractionated heparin SQ (heparin drip) [place] Drug Monitoring Program Search Results: no issues identified
[2017-10-02] MEDS ORDERED: WARFARIN SOD 2 MG TAB PO SCH (16:00)
[2017-10-02] MEDS ORDERED: AMOXICILLIN/CLAVULANATE TAB 875 MG TAB PO SCH (17:45)
--- NOTE | 2017-10-04 18:17 | Discharge Summary ---
Discharge Summary Date of Service Oct 04, 2017. Discharge Summary Admission Date: Sep 16, 2017 at 14:26 Discharge Date: Oct 02, 2017 Discharge Disposition: Rehab Principal Diagnosis: Gangrene of Toes on Both Feet? Peripheral Artery Disease Secondary Diagnoses/Problems: PE/DVT Anemia Hx Syncope Hypotonic Hyponatremia CAD Procedures: S/p Left 1st and 2nd toes amputation S/p Left leg revascularization on 09/24/17: Left Femoral to Peroneal Composite Bypass; Harvesting of Right Lesser Saphenous Vein; Stenting of femoral peroneal bypass performed by Dr. Hussein Consultations: vascular Medication Reconciliation New Medications: Amoxicillin & Pot Clavulanate (Amoxicillin/Clavulanate P) 1 Tab Tab 875 MG PO BIDM for 7 Days, TAB Enoxaparin (Lovenox) 80 Mg/0.8 Ml Inj 70 MG SQ Q12H for 5 Days Nicotine (Nicoderm Cq 14MG Patch) 14 Mg/24 Hr Dis 1 PATCH TD QAM for 7 Days Oxycodone/Acetaminophen 5MG/325MG (Percocet 5MG/325MG) Tab 1 TAB PO Q6H PRN for Moderate Pain, #10 TAB PAIN Continued Medications: Acetaminophen (Tylenol) 325 Mg Tab 650 MG PO Q6 PRN for Pain or Fever Aspirin (Aspirin Ec) 81 Mg Tab 81 MG PO DAILY Atorvastatin (Lipitor) 80 Mg Tab 80 MG PO DAILY Calcium/Vitamin D (Os-Lowell 500 Plus D) Tab 1 TAB PO BID Clopidogrel (Plavix) 75 Mg Tab 75 MG PO DAILY Cyanocobalamin (Vitamin B-12) 1,000 Mcg Tab 1000 MCG PO DAILY Enalapril (Vasotec) 5 Mg Tab 5 MG PO DAILY Ferrous Sulfate (Kp Ferrous Sulfate) 325 Mg Tab 325 TAB PO BID Folic Acid (Folvite) 1 Mg Tab 1 MG PO DAILY Gabapentin (Neurontin) 100 Mg Cap 100 MG PO TID Magnesium Hydroxide (Milk of Magnesia) 30 Ml Susp 30 ML PO DAILY PRN for Constipation Magnesium Oxide (Mag-Ox) 400 Mg Tab 400 MG PO BID Multivitamins/Minerals (Mvi With Minerals) Tab 1 TAB PO DAILY Nutritional Supplements (Boost) 1 Liq Liq 1 CAN PO BID Ranitidine (Zantac) 150 Mg Tab 150 MG PO DAILY Sertraline (Zoloft) 50 Mg Tab 50 MG PO DAILY Thiamine Hcl (Vitamin B-1) 50 Mg Tab 50 MG PO DAILY Warfarin Sod (Jantoven) 2 Mg Tab 2 MG PO DAILY@1600 Admission Information HPI (per Admitting provider): 72 year old male who presented to the ED with BL foot pain and left toe wound. Patient was recently admitted to [facility] 08/12 - 08/19. He was found to have DVT, PE , and fairly severe PAD. Patient was started on Coumadin. He was evaluated by vascular surgery and given the fact that he was asymptomatic from a vascular standpoint, intervention was not advised. Shortly after being discharge patient developed severe BL foot pain with walking. About 5 days ago, his left great toe started to develop an ulcer that has progressively gotten worse. He has also developed necrosis on the end of the left toe and a small amount on the end of the right toe. Patient reports he has not been very active. When patient arrived to triage, he was found to be hypotensive and had a syncopal event. Patient denies any other lightheadedness, dizziness, or syncope prior to that event. No chest pain or shortness of breath. He reports his appetite has been poor but denies abdominal pain, nausea, vomiting, or diarrhea. No fevers or chills. He denies urinary symptoms. In the ED, patient's BP was 62/40. He was given 1 L IVF with significant improvement in his symptoms. He is afebrile and without leukocytosis. He was given IV Vanco and Zosyn. Physical Exam (per Admitting): General Appearance: WD/WN, no apparent distress, + pertinent finding ( chronically ill appearing) Head: normocephalic, atraumatic Eyes: normal inspection, EOMI, sclerae normal ENT: hearing grossly normal, + pertinent finding (mucous membanes moist) Neck: supple, no JVD, trachea midline Respiratory/Chest: lungs clear, normal breath sounds, no respiratory distress Cardiovascular: regular rate, rhythm, no edema, + abnormal peripheral pulses (diminished pedal pulses) Abdomen/GI: normal bowel sounds, non tender, soft, no organomegaly Extremities/Musculoskelatal: normal inspection, no calf tenderness, normal capillary refill Neurologic/Psych: no motor/sensory deficits, alert, normal mood/affect, oriented x 3 Skin: + pertinent finding (left great toe with area of necrosis to the proximal end with ulcer on the dorsal aspect of the toe; redness over the dorsal aspect of the left foot; small area of necrosis on the proximal end of the right great toe) Hospital Course 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 Hussein Continue IV heparin for now due to recent PE/DVT Plan for L 1st and 2nd toe amputations tomorrow by Vascular dr. Hussein No leukocytosis Wound cx growth gram negative staph Received IV abx with Vanco and Zosyn that were D/C Plan to go to OR today for amputation Keep NPO for now Will need rehab 10/02 S/p day 3 Left 1st and 2nd toes amputation No post op amputation Tolerated well pain controlled Talk to Dr. Hussein for the right 1st toe gangrene at the tip No surgical amputation for the right 1st toe vascular recommended to continue monitor PE/DVT Coumadin has been held due to surgical procedure Continue IV heparin for now Will resume Coumadin tomorrow Anemia Possible due to post op Hgb 8.8 today Transfused 1 unit PRBC yesterday Continue monitor CBC Hx Syncope Possible related to Vasovagal Stable Hypotonic Hyponatremia may be due to poor oral intake/ Was NPO yesterday Received IVF Na 129 Increase food intake Monitor BMP CAD history Denies any chest pain continue on ASA, Plavix, statin Recent Echo on 08/27 * There is a moderate sized wall motion abnormality involving the inferior and posterior badillo with hypokinesis to akinesis of the base and mid segements. * There is hypokinesis of the apical septum. * Ejection Fraction = 45-50%. * There is no thrombus. DVT PROPHYLAXIS on Heparin IV Code Status Full code Disposition Possible discharge to rehab tomorrow Total time spent on discharge = 35 minutes This includes examination of the patient, discharge planning, medication reconciliation, and communication with other providers. Discharge Instructions Discharge Instructions Date of Service Oct 02, 2017. 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 Instructions / Follow-Up Instructions / Follow-Up Transfer to [facility] Please call your primary care provider once discharge from rehab Follow up with Vascular Dr. Hussein between 1 to 2 weeks ( Call for the appointment) Limb check (Lower extremities) and notify vascular with any concern Complete course of antibiotic Continue daily wound care Continue wearing left Darco shoe Continue physical therapy/ occupational therapy Fall precaution Continue therapeutic lovenox until INR at goal (Between 2 to 3) Monitor INR Continue coumadin Hold narcotic if patient becomes lethargy and drowsy Check BMP within 1 week to monitor electrolytes Check CBC to monitor hemoglobin Current Hospital Diet Patient's current hospital diet: Diabetes Type 2 Diet, AHA Diet (Heart Healthy) Discharge Diet Recommended Diet: AHA Diet (Heart Healthy) Procedures Procedures Performed: Left Amputation Toe 1st and 2nd Pending Studies Studies pending at discharge: no Medical Emergencies . Who to Call and When: Medical Emergencies: If at any time you feel your situation is an emergency, please call 911 immediately. . Non-Emergent Contact Non-Emergency issues call your: Primary Care Provider Call Non-Emergent contact if: you have a fever, you have any medication questions . . "Provider Documentation" section prepared by Raysa Jain. . VTE Core Measure Inpt VTE Proph given/why not?: Enoxaparin (Lovenox)SQ, Unfractionated heparin SQ (heparin drip) [place] Drug Monitoring Program Search Results: no issues identified Additional Copies To Prem Stuart D.O. [facility]
--- NOTE | 2017-10-26 10:06 | DIAGNOSTIC IMAGING REPORT ---
DATE OF PROCEDURE: 09/17/2017 PREOPERATIVE DIAGNOSES: Bilateral lower extremity thromboembolic event and bilateral toe gangrene. POSTOPERATIVE DIAGNOSES: Same. PROCEDURES: 1. Ultrasound guided right common femoral artery access. 2. Aortogram. 3. Bilateral lower extremity angiograms. 4. Percutaneous closure with StarClose device. 5. Conscious sedation for 45 minutes. SURGEON: Abhijeet Hussein MD PUMPER HAND: Rachelle Lyn MD ESTIMATED BLOOD LOSS: 10 mL. ANESTHESIA: Local plus conscious sedation. CONTRAST: 126 mL. FLUOROSCOPY TIME: 1.7 minutes. MILLIGRAYS: Just 41. COMPLICATIONS: None apparent. INDICATIONS: Mr. Doty is a 72-year-old male with bilateral lower extremity black toes and rest pain. On duplex shown that he had bilateral lower extremity popliteal aneurysms. He was offered angiography for diagnostic purposes for future operative planning. He was advised of the risks and benefits of the procedure and he agreed to undergo the above procedure. DESCRIPTION OF PROCEDURE: The patient was brought into the operative suite. He was prepped and draped in the usual fashion. A timeout occurred. Ultrasound was used to identify the right common femoral artery. This was percutaneously accessed. A wire was passed through the needle. A 5-Niuean sheath was placed. ____ Glidewire was passed into the aorta. A pigtail was passed over this. Aortogram was obtained. This showed patent infrarenal abdominal aorta. Bilateral patent common femoral arteries. Stenosis of the left hypogastric artery proximally and ectatic bilateral common iliac arteries. External iliac arteries were widely patent. Bilateral common femoral arteries were widely patent. The pigtail was then moved just above the bifurcation and bilateral lower extremity angiograms were obtained. This demonstrated patent bilateral common femoral arteries, patent profunda arteries without signs of hemodynamically significant stenosis bilaterally, bilateral occlusions of proximal SFAs, bilateral occlusions of popliteal arteries, and reconstitution of the peroneal. In order to better visualize the runoff, the pigtail was exchanged for a Rim catheter and this was passed into the left external iliac artery. Left lower extremity angiogram was obtained showing peroneal runoff to the ankle. The PT and AT were both occluded. The Rim catheter was then removed and a right lower extremity angiogram was obtained, this again showed patent peroneal artery to the ankle with both the AT and the PT arteries being occluded. Angiogram of the right common femoral artery was obtained. This showed the sheath was in the common femoral and a StarClose device was used to obtain hemostasis. Hemostasis was obtained and the patient was transported to PACU in stable condition. Dr. Abhijeet Hussein was present for the entirety of this case.
[2017-10-28] MEDS ORDERED: AMOX1TAB43 PO (11:47)
[2017-10-28] MEDS ORDERED: SENN-65 PO (11:47)
[2017-10-28] MEDS ORDERED: OXYC-57 PO (11:47)
--- NOTE | 2017-11-01 08:03 | DIAGNOSTIC IMAGING REPORT ---
DATE OF PROCEDURE: 09/17/2017 PREOPERATIVE DIAGNOSIS: Gangrene, left first and second toes with peripheral vascular occlusive disease. POSTOPERATIVE DIAGNOSIS: Same. PROCEDURE: Arteriography bilateral lower extremity and mechanical closure of the right groin and moderate conscious sedation, 1731 to 1816. SURGEON: Abhijeet Hussein MD. SALES ENGINEER: Rachelle Lyn MD. PROCEDURE INDICATIONS: The patient is a 72-year-old male who developed gangrenous changes of first and second toe. He was found to have severe peripheral vascular occlusive disease. Arteriography was recommended. He understood the risks, options and benefits and agreed to have this procedure. The patient was taken to the angiogram suite and placed in supine position. After groins were prepped and draped in a sterile manner, local anesthetic was administered. Percutaneous puncture was made of the right common femoral artery. A pigtail catheter was then inserted over a wire into the distal aorta. Aortography was performed which showed the SMA and renal arteries to be patent. There was moderate occlusive disease of both aorta and iliac segments with severe stenosis of left internal iliac. The runoffs were then performed which showed superficial femoral artery occlusion with reconstitution of the peroneal in the upper calf on both sides, which fed collaterals to the foot. No intervention was done at this time. The catheter was then pulled. The right groin was closed using a Star closure device. The patient left the angio suite in good condition and tolerated the procedure well. Adequate hemostasis was noted at that time. IDr. Hussein was present and scrubbed for the entire procedure. [facility]OS[facility]ITALVanessa
--- NOTE | 2017-11-01 08:07 | OPERATIVE REPORT ---
DATE OF OPERATION: 09/30/2017 PREOPERATIVE DIAGNOSIS: Gangrene of first and second toes. POSTOPERATIVE DIAGNOSIS: Same. PROCEDURE: Amputation of left first and second toe. SURGEON: Abhijeet Hussein MD. EARLY MORNING BABYSITTER: Rachelle Lyn MD. ANESTHETIC: General. PROCEDURE INDICATIONS: The patient is a 72-year-old gentleman with gangrene of the first and second toe. He was revascularized with a bypass, now was brought to the operating room for amputation of the demarcated toes. He understood the risks, options and benefits and agreed to have this procedure. The patient was taken to the operating room and placed in supine position. After general anesthesia was accomplished, the foot was prepped and draped in a sterile manner. Incision was made around the base of the first and second toes. The incision was carried upward. The metatarsal heads were freed off. The metatarsal heads were transected and the mid portion of the toes were removed. Good bleeding viable tissue was noted. The wound was irrigated and then primarily closed with silk sutures in usual fashion. Sterile dressings were applied to the wound. The patient left the operating room in satisfactory condition and tolerated the procedure well. I, Dr. Hussein was present and scrubbed for the entire procedure. I attest to the content of the Intraoperative Record and any orders documented therein. Any exceptions are noted below. ALFREDO
== END 2017-10-02 16:00 | DRG 253 ==
LOC: C.EDB 11:50 → C.2T 14:26 → ENRESERV 15:24 → C.MS2W 09-18 13:16 → C.MSICU 09-24 17:09 → C.MSW 09-25 08:59 → ENRESERV 09-25 09:13
PROVIDERS: ADMIT Internal Medicine; ATTEND Internal Medicine
PROC: 06BP0ZZ Excision of Right Saphenous Vein, Open Approach (ICD-10-PCS; principal; 2017-09-24 10:00)
PROC: 041L09M Bypass Left Femoral Artery to Peroneal Artery with Autologous Venous Tissue, Open Approach (ICD-10-PCS; principal; 2017-09-24 10:00)
PROC: 047L34Z Dilation of Left Femoral Artery with Drug-eluting Intraluminal Device, Percutaneous Approach (ICD-10-PCS; principal; 2017-09-24 10:00)
PROC: 0Y6S0Z0 Detachment at Left 2nd Toe, Complete, Open Approach (ICD-10-PCS; 2017-09-30)
PROC: 0Y6Q0Z0 Detachment at Left 1st Toe, Complete, Open Approach (ICD-10-PCS; 2017-09-30)
DX: I77.9 Disorder of arteries and arterioles, unspecified (principal); E87.1 Hypo-osmolality and hyponatremia; E46 Unspecified protein-calorie malnutrition; I96 Gangrene, not elsewhere classified; I97.618 Postprocedural hemorrhage of a circulatory system organ or structure following other circulatory system procedure; L97.521 Non-pressure chronic ulcer of other part of left foot limited to breakdown of skin; I25.10 Atherosclerotic heart disease of native coronary artery without angina pectoris; J44.9 Chronic obstructive pulmonary disease, unspecified; F32.9 Major depressive disorder, single episode, unspecified; E78.00 Pure hypercholesterolemia, unspecified; E78.5 Hyperlipidemia, unspecified; I25.2 Old myocardial infarction; Z86.711 Personal history of pulmonary embolism; Z79.01 Long term (current) use of anticoagulants; Z87.440 Personal history of urinary (tract) infections; F17.200 Nicotine dependence, unspecified, uncomplicated; Z79.82 Long term (current) use of aspirin; I95.9 Hypotension, unspecified; R55 Syncope and collapse

== ENCOUNTER 2017-10-09 22:15 | Emergency (ER) | payer OTHER ==
[~2017-10-09] VITALS: Ht 185.4 cm; Wt 63.8 kg
[~2017-10-09 22:15] MED LIST changes: +AMOX1TAB43 PO; -CMD2 PO; +GABA-112 PO; -GABA100C13 PO; -LVNIS100 SQ; +LVNIS80 SQ; +OXYC-57 PO; +WARF2TAB8 PO
[2017-10-09 22:19] VITALS: BP 113/63; PULSE 67; TEMP 36.9; O2SAT 94; Ht 185.4 cm; Wt 63.8 kg
[2017-10-09 23:12] LABS: INR 2.4 (0.9-1.1); PTT PATIENT 36.9 SECONDS (21.0-31.0)
--- NOTE | 2017-10-10 00:41 | EMERGENCY ROOM VISIT NOTE ---
History First contact with patient: 22:15 Chief Complaint: BLEEDING Stated Complaint: BLEEDING Nursing Triage Summary: Patient presents BLS from [facility] for evaluation. Per staff at [facility] , patient was given a Lovenox injection on the left side of abdomen last evening. Staff reports that the bleeding has not stopped from injection site. No bleeding noted upon arrival. Dressing intact. Patient denies any complaints. History of Present Illness The patient is a 72 year old male who presents to the Emergency Room with complaints of bleeding from Lovenox shots since yesterday. Patient states he receives daily Lovenox shots for DVT and PE prophylaxis. He is currently in the intermediate for rehabilitation for amputation of his toes. Patient states the bleeding has resolved and he has no medical complaints and is requesting to go back home. Patient denies chest pain, dyspnea, numbness, tingling, abdominal pain or any other medical complaints. Review of Systems A 6 system review of systems was completed with positives and pertinent negatives listed in the HPI. Past Medical/Surgical History Medical Problems: (1) Alcohol use disorder (2) CAD (coronary artery disease) (3) Closed fracture of proximal end of left humerus (4) COPD (chronic obstructive pulmonary disease) (5) Depression (6) DVT (deep venous thrombosis) (7) Gangrene due to peripheral vascular disease (8) History of alcohol abuse (9) Hypercholesteremia (10) Hyperlipidemia (11) Malnutrition (12) WV (myocardial infarction) (13) PE (pulmonary embolism) (14) Peripheral neuropathy (15) Warfarin anticoagulation Surgical Problems: (1) H/o neuroma removed from foot (2) History of carpal tunnel surgery (3) Hx of CABG (4) S/P coronary artery stent placement Family History Patient reports no known family medical history. Social History Smoking Status: Current Every Day Smoker Drug Use: none Housing Status: lives alone, intermediate Current/Historical Medications Scheduled Amoxicillin & Pot Clavulanate (Amoxicillin/Clavulanate P), 875 MG PO BIDM Aspirin (Aspirin Ec), 81 MG PO DAILY Atorvastatin (Lipitor), 80 MG PO DAILY Calcium/Vitamin D (Os-Lowell 500 Plus D), 1 TAB PO BID Clopidogrel (Plavix), 75 MG PO DAILY Cyanocobalamin (Vitamin B-12), 1,000 MCG PO DAILY Enalapril (Vasotec), 5 MG PO DAILY Enoxaparin (Lovenox), 70 MG SQ Q12H Ferrous Sulfate (Kp Ferrous Sulfate), 325 TAB PO BID Folic Acid (Folvite), 1 MG PO DAILY Gabapentin (Neurontin), 100 MG PO TID Magnesium Oxide (Mag-Ox), 400 MG PO BID Multivitamins/Minerals (Mvi With Minerals), 1 TAB PO DAILY Nicotine (Nicoderm Cq 14MG Patch), 1 PATCH TD QAM Nutritional Supplements (Boost), 1 CAN PO BID Ranitidine (Zantac), 150 MG PO DAILY Sertraline (Zoloft), 50 MG PO DAILY Thiamine Hcl (Vitamin B-1), 50 MG PO DAILY Warfarin Sod (Jantoven), 2 MG PO DAILY@1600 Scheduled PRN Acetaminophen (Tylenol), 650 MG PO Q6 PRN for Pain or Fever Magnesium Hydroxide (Milk of Magnesia), 30 ML PO DAILY PRN for Constipation Oxycodone/Acetaminophen 5MG/325MG (Percocet 5MG/325MG), 1 TAB PO Q6H PRN for Moderate Pain Physical Exam Vital Signs Date Time Temp Pulse Resp B/P (MAP) Pulse Ox O2 Delivery O2 Flow Rate FiO2 10/09/17 22:19 36.9 67 18 113/63 94 Room Air Physical Exam VITALS: Vitals are noted on the nurse's note and reviewed by myself. Vital signs stable. GENERAL: Pleasant male, in no acute distress, nondiaphoretic, well-developed well-nourished. SKIN: Capillary reflex less than 2 seconds. HEENT: Normocephalic. PERRLA. EOMI. Nares patent. Mucous membranes moist. Neck is supple without nuchal rigidity. HEART: Regular rate and rhythm LUNGS: Clear to auscultation bilaterally without wheezes, rales or rhonchi. No retractions or accessory muscle use. ABDOMEN: Positive bowel sounds x 4. Normal tympanic percussion. Soft, left upper quadrant with hemostasis controlled over the Lovenox shot area without palpable hematoma or mass, nontender, without masses or organomegaly. Johnson sign negative. No guarding or rebound tenderness. No CVA tenderness MUSCULOSKELETAL: No gross musculoskeletal defects. NEURO: Patient was alert and oriented to person place and time. Normal sensation to light and sharp touch. No focal neurological deficits. Medical Decision & Procedures Laboratory Results Test 10/09/17 22:50 Prothrombin Time 24.6 SECONDS (9.0-12.0) Prothromb Time International Ratio 2.4 (0.9-1.1) Activated Partial Thromboplast Time 36.9 SECONDS (21.0-31.0) Partial Thromboplastin Ratio 1.4 ED Course Prior records reviewed and summarized as above. Triage Nursing notes reviewed. Additional history obtained from EMS. The patient's history was concerning for possible bleeding from Lovenox shot Differential diagnosis: Etiologies such as open wound, hematoma, superficial therapeutic INR, bleeding abnormally, as well as others were entertained.. Physical examination: The physical examination was consistent with resolved bleeding from puncture site ER treatment provided: Bandage was applied On reassessment the patient felt better. Diagnostics interpreted by me: The labs revealed therapeutic INR This appears to be isolated bleeding from puncture wound site that is completely resolved. Patient had a therapeutic INR. He had no bruising. No signs of hematoma. He did not have acute abdomen. He was requesting return to the intermediate and I felt this is reasonable. He was advised to return to the ER immediately for pain, fevers, vomiting, bleeding problems, worsening signs or symptoms or as needed. By the evaluation outlined above emergent etiologies such as abscess, hematoma, supratherapeutic INR, as well as others were deemed relatively unlikely. The pt informed about the findings as listed above. All questions were answered and pleased with the treatment. Return instructions were outlined and the patient was discharged in stable condition. Referral: The patient was referred back to primary care physician for follow-up in 2 to 3 days for a recheck of the current condition. Medical Decision As above Medication Reconcilliation Current Medication List: was personally reviewed by me Blood Pressure Screening Patient's blood pressure: Normal blood pressure Impression Primary Impression: Wound of abdomen Additional Impression: bleeding from Lovenox shot Departure Information Dispostion Home / Self-Care Condition GOOD Referrals Prem Stuart D.O. Forms HOME CARE DOCUMENTATION FORM, IMPORTANT VISIT INFORMATION Patient Instructions My [facility] Additional Instructions If your wound starts to rebleed, hold pressure for 15 minutes. If it does not stop then come to the ER. Antibiotic ointment and bandage to the areas until healed. Follow up with family doctor or return for any signs of infection (increasing redness, swelling , drainage, or fever). Keep covered when in sun until fully healed then SPF 50 or higher until scar healed. Problem Qualifiers
[2017-10-10] MEDS ORDERED: ONDANSETRON 4MG OD TAB PO ONE (01:15)
--- NOTE | 2017-10-10 16:15 | EMERGENCY ROOM VISIT NOTE ---
ED Visit Note First contact with patient: 22:17 HPI: Sent from rehab for bleeding from lovenox site. Also on coumadin for DVT. Plan: On arrival site hemostatic. No evidence of underlying hematoma. Site is lateral and unlikely to involve inferior epigastric arteries. INR therapeutic. Facility should likely discontinue Lovenox. I reviewed the patient's past medical history, medications, and visit nursing notes. I discussed the case with the physician licensed sales assistant, examined the patient, and agree with the findings and plan as documented in the physician assistants note.
[2017-10-28] MEDS ORDERED: OXYC-57 PO (11:47)
[2017-10-28] MEDS ORDERED: SENN-65 PO (11:47)
[2017-10-28] MEDS ORDERED: AMOX1TAB43 PO (11:47)
[2017-12-09] MEDS ORDERED: ASPI-320 PO (16:03)
[2017-12-09] MEDS ORDERED: VANC1SUS PO (16:03)
== END 2017-10-09 22:32 | disposition home or self-care (01) ==
LOC: EDBD 22:15 → C.EDB 22:16
DX: S31.109A Unspecified open wound of abdominal wall, unspecified quadrant without penetration into peritoneal cavity, initial encounter (principal); T80.89XA Other complications following infusion, transfusion and therapeutic injection, initial encounter; X58.XXXA Exposure to other specified factors, initial encounter; I25.10 Atherosclerotic heart disease of native coronary artery without angina pectoris; J44.9 Chronic obstructive pulmonary disease, unspecified; F32.9 Major depressive disorder, single episode, unspecified; I73.9 Peripheral vascular disease, unspecified; E78.00 Pure hypercholesterolemia, unspecified; I25.2 Old myocardial infarction; I26.99 Other pulmonary embolism without acute cor pulmonale; G62.9 Polyneuropathy, unspecified; Z79.01 Long term (current) use of anticoagulants; Z51.81 Encounter for therapeutic drug level monitoring; F17.200 Nicotine dependence, unspecified, uncomplicated; Z79.82 Long term (current) use of aspirin

== ENCOUNTER 2017-11-05 22:24 | Emergency (ER) | payer OTHER ==
[~2017-11-05 22:24] MED LIST changes: -ASPI81TA28 PO; -CLOP1TAB15 PO; -ENAL5TAB83 PO; -FERR1TAB13 PO; -LVNIS80 SQ; -MOMLX PO; -MULT-513 PO; -NICO14DI5 TD; -RANI150T85 PO; +SENN-65 PO; +ZNTT/150 PO
[2017-11-05 22:34] VITALS: Ht 188 cm
[2017-11-06 00:31] LABS: BASO % 0.4 %; BASO ABS # 0.03 K/uL (0-0.2); EOS ABS # 0.24 K/uL (0-0.5); HEMATOCRIT 31.9 % (42-52); HEMOGLOBIN 10.8 g/dL (14.0-18.0); IG# 0.02 K/uL (0.00-0.02); LYMPH % 19.9 %; LYMPH ABS # 1.59 K/uL (1.2-3.4); MEAN CELL VOLUME 92.5 fL (80-100); MEAN CORPUSCULAR HEMOGLOBIN 31.3 pg (25-34); MEAN CORPUSCULAR HGB CONC 33.9 g/dl (32-36); MONO % 7.7 %; MONO ABS # 0.61 K/uL (0.11-0.59); NEUT % 68.7 %; NEUT ABS # 5.48 K/uL (1.4-6.5); PLATELET COUNT 318 K/uL (130-400); RED CELL DISTRIBUTION WIDTH CV 16.6 % (11.5-14.5); RED CELL DISTRIBUTION WIDTH SD 55.2 fL (36.4-46.3); WHITE BLOOD COUNT 7.97 K/uL (4.8-10.8)
[2017-11-06 01:03] LABS: ALBUMIN 2.7 gm/dl (3.4-5.0); ALKALINE PHOSPHATASE 109 U/L (45-117); ALT/SGPT 15 U/L (12-78); BLOOD UREA NITROGEN 8 mg/dl (7-18); CALCIUM 8.5 mg/dl (8.5-10.1); CARBON DIOXIDE 24 mmol/L (21-32); CREATININE 1.01 mg/dl (0.60-1.40); GLUCOSE 82 mg/dl (70-99); SODIUM 134 mmol/L (136-145); TOTAL PROTEIN 7.7 gm/dl (6.4-8.2)
[2017-11-06 13:15] VITALS: BP 123/70; PULSE 78; O2SAT 98
--- NOTE | 2017-11-06 22:33 | EMERGENCY ROOM VISIT NOTE ---
History Report prepared by Emily: Ashly Emerson Under the Supervision of: Dr. Anna Pham D.O. First contact with patient: 23:23 Chief Complaint: TOE PAIN, INJURY Stated Complaint: R FOOT TOE PAIN IN BIG TOE History of Present Illness The patient is a 72 year old male who presents to the Emergency Room with complaints of intermittent right toe pain starting this afternoon. The patient states that he is supposed to have it amputated in four days. He states that he came to the ED tonight because he cannot stand the pain any longer. He notes that he had a friend bring him. The patient currently rates his pain as a 5/10 in severity. The patient complains of his left foot being swollen. The patient denies abdominal pain. The patient notes that he has had two toes amputated on his left foot a few months ago and he denies being a Diabetic. The patient states that his daughter cares for him and arranges his medications. He states that he is unsure if he takes a pain pill, but thinks he does. He notes that we can call her. Per nursing staff, the patient arrived by ALS. Source of History: patient, nursing staff Onset: this afternoon Position: toe(s) (right) Symptom Intensity: 5/10 Quality: other (swollen) Timing: intermittent Associated Symptoms: No abdominal pain Note: The patient complains of his left foot being swollen. Review of Systems See HPI for pertinent positives & negatives. A total of 10 systems reviewed and were otherwise negative. 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 Social History Smoking Status: Current Every Day Smoker Drug Use: none Marital Status: Housing Status: lives alone Current/Historical Medications Scheduled Amoxicillin & Pot Clavulanate (Amoxicillin/Clavulanate P), Unknown Dose PO BID Atorvastatin (Lipitor), 80 MG PO QDD Calcium/Vitamin D (Os-Lowell 500 Plus D), 1 TAB PO BID Cyanocobalamin (Vitamin B-12), 1,000 MCG PO QAM Folic Acid (Folvite), 1 MG PO QAM Gabapentin (Neurontin), 100 MG PO TID Magnesium Oxide (Mag-Ox), 400 MG PO BID Nutritional Supplements (Boost), 1 CAN PO BID Ranitidine (Zantac), 150 MG PO QAM Senna/Docusate Sod (Senokot S), 1 TAB PO QDL Sertraline (Zoloft), 50 MG PO QAM Thiamine Hcl (Vitamin B-1), 50 MG PO QAM Warfarin Sod (Jantoven), Unknown Dose PO UD Scheduled PRN Acetaminophen (Tylenol), 650 MG PO Q6 PRN for Pain or Fever Oxycodone/Acetaminophen 5MG/325MG (Percocet 5MG/325MG), 1 TABLET PO UD PRN for PRN Allergies Coded Allergies: No Known Allergies (Unverified , 11/06/17) Physical Exam Vital Signs Date Time Temp Pulse Resp B/P (MAP) Pulse Ox O2 Delivery O2 Flow Rate FiO2 11/06/17 13:15 78 16 123/70 98 11/06/17 11:35 85 16 138/82 11/06/17 10:21 72 16 125/69 95 Room Air 11/06/17 07:05 69 16 122/84 97 Room Air 11/06/17 04:19 69 16 133/60 97 Room Air 11/06/17 02:20 76 16 124/66 96 Room Air 11/06/17 00:19 89 16 147/88 99 Room Air 11/05/17 22:34 83 18 113/65 99 Room Air Physical Exam Heart: Regular rate and rhythm. There is a normal S1 and S2 with no murmurs, clicks, or gallops appreciated. Lungs: Clear to auscultation bilaterally with no wheezes, rales, or rhonchi. Abdomen: Soft, completely nontender, nondistended, with good bowel sounds. There are no palpable pulsatile masses or hepatosplenomegaly. There is no guarding, rigidity, or rebound noted. Extremities: No evidence of cyanosis, clubbing, or edema. There are easily palpable peripheral pulses. Right great toe is gangrenous with erythema over the entire first metatarsal. On the left foot, there are previously amputated toes. Skin: warm and dry with good turgor and no rashes. Neuro: He is alert to person and place. He seems to suffer from dementia. He believed that he arrived here with a friend but in reality came by ambulance. He has no insight into his medications that he takes at home. He is unsure of the surgeon who will perform surgery in the upcoming week or the names of his primary care physician or surgeon who performed his previous amputations. Medical Decision & Procedures Laboratory Results 11/06/17 00:22 Red Blood Count 3.45, Mean Corpuscular Volume 92.5, Mean Corpuscular Hemoglobin 31.3, Mean Corpuscular Hemoglobin Concent 33.9, Mean Platelet Volume 10.0, Neutrophils (%) (Auto) 68.7, Lymphocytes (%) (Auto) 19.9, Monocytes (%) (Auto) 7.7, Eosinophils (%) (Auto) 3.0, Basophils (%) (Auto) 0.4, Neutrophils # (Auto) 5.48, Lymphocytes # (Auto) 1.59, Monocytes # (Auto) 0.61, Eosinophils # (Auto) 0.24, Basophils # (Auto) 0.03 11/06/17 00:22 11/06/17 01:28 Test 11/06/17 00:22 White Blood Count 7.97 K/uL (4.8-10.8) Red Blood Count 3.45 M/uL (4.7-6.1) Hemoglobin 10.8 g/dL (14.0-18.0) Hematocrit 31.9 % (42-52) Mean Corpuscular Volume 92.5 fL (80-100) Mean Corpuscular Hemoglobin 31.3 pg (25-34) Mean Corpuscular Hemoglobin Concent 33.9 g/dl (32-36) Platelet Count 318 K/uL (130-400) Mean Platelet Volume 10.0 fL (7.4-10.4) Neutrophils (%) (Auto) 68.7 % Lymphocytes (%) (Auto) 19.9 % Monocytes (%) (Auto) 7.7 % Eosinophils (%) (Auto) 3.0 % Basophils (%) (Auto) 0.4 % Neutrophils # (Auto) 5.48 K/uL (1.4-6.5) Lymphocytes # (Auto) 1.59 K/uL (1.2-3.4) Monocytes # (Auto) 0.61 K/uL (0.11-0.59) Eosinophils # (Auto) 0.24 K/uL (0-0.5) Basophils # (Auto) 0.03 K/uL (0-0.2) RDW Standard Deviation 55.2 fL (36.4-46.3) RDW Coefficient of Variation 16.6 % (11.5-14.5) Immature Granulocyte % (Auto) 0.3 % Immature Granulocyte # (Auto) 0.02 K/uL (0.00-0.02) Anion Gap 8.0 mmol/L (3-11) Estimated GFR () 86.3 Estimated GFR (Non- 74.5 BUN/Creatinine Ratio 8.4 (10-20) Calcium Level 8.5 mg/dl (8.5-10.1) Total Bilirubin 0.4 mg/dl (0.2-1) Direct Bilirubin mg/dl (0-0.2) Aspartate Amino Transf (AST/SGOT) U/L (15-37) Alanine Aminotransferase (ALT/SGPT) 15 U/L (12-78) Alkaline Phosphatase 109 U/L (45-117) Total Protein 7.7 gm/dl (6.4-8.2) Albumin 2.7 gm/dl (3.4-5.0) Ethyl Alcohol mg/dL 66.0 mg/dl (0-3) Laboratory results per my review. ED Course 2338: Past medical records reviewed. The patient was evaluated in room C2B. A complete history and physical exam was performed. Labs were drawn as above. 0032: I reevaluated the patient and he is unhappy. He is refusing the IV and is still confused. 0300: I reevaluated the patient and he has no recollection of drinking alcohol. He is adamant that he did not come in by ambulance. He is giving another phone number for us to try to get a hold of his other daughter. 0410: He remains wide awake asking to go home. I did not feel comfortable discharging him in a taxi as he is obviously demented. I reviewed multiple previous medical records and I confirmed his diagnosis of dementia with episodes of delirium. We made multiple attempts at contacting the patient's daughters. 07: I spoke to the patient's daughter on the phone. She was unaware that he was drinking and admits he has dementia, but he refuses to go to a personal jail. She is not able to get the patient till after lunch. I voiced my concern about the patient's safety at home, especially since he consumes alcohol. Medical Decision The patient is a 72 year old male who presents to the Emergency Room with complaints of intermittent right toe pain starting this afternoon. Differential diagnoses include sepsis, peripheral artery disease, gangrenous toe , intractable pain dementia, delirium, alcohol intoxication. LABS: Alcohol 66 Normal renal function Normal glucose Normal LFTs No leukocytosis Hemoglobin 10 This is a 72-year-old male patient with a history of dementia and alcohol abuse who presents to the emergency department complaining of severe right great toe pain. The patient has known peripheral artery disease with previous amputations. He is scheduled to have the right great toe amputated in 3 days. The patient was having severe pain in the great toe and called an ambulance. Upon arrival here in the emergency department, the patient states the pain has improved significantly. He did not require any pain medication while here in the emergency department. The patient is prescribed oxycodone and according to his daughter does use them for his pain. The patient has caretakers in his home quite frequently along with his daughter. I recommended the patient avoid abusing alcohol. I suggested that the daughter administer the pain medication to avoid him combining alcohol and an opioid. Medication Reconcilliation Current Medication List: was personally reviewed by me Blood Pressure Screening Patient's blood pressure: Normal blood pressure Blood pressure disposition: Did not require urgent referral Impression Primary Impression: Gangrene of toe of right foot Additional Impressions: Dementia Alcohol intoxication Scribe Attestation The scribe's documentation has been prepared under my direction and personally reviewed by me in its entirety. I confirm that the note above accurately reflects all work, treatment, procedures, and medical decision making performed by me. Departure Information Dispostion Home / Self-Care Referrals No Doctor, Assigned (PCP) Forms HOME CARE DOCUMENTATION FORM, IMPORTANT VISIT INFORMATION, WORK / SCHOOL INSTRUCTIONS Patient Instructions My [facility] Additional Instructions Make sure patient is restricted from alcohol. Maintain control of patient's pain meds. Ensure the patient's safety Follow up with surgeon if pain persists Problem Qualifiers Additional Impressions: Dementia Dementia type: unspecified type Dementia behavioral disturbance: with behavioral disturbance Qualified Codes: F03.91 - Unspecified dementia with behavioral disturbance Alcohol intoxication Complication of substance-induced condition: with unspecified complication Qualified Codes: F10.929 - Alcohol use, unspecified with intoxication, unspecified
== END 2017-11-06 13:15 | disposition home or self-care (01) ==
LOC: C.EDB 22:26 → C.EDA 11-06 13:15
DX: I96 Gangrene, not elsewhere classified (principal); F03.91 Unspecified dementia, unspecified severity, with behavioral disturbance; F10.929 Alcohol use, unspecified with intoxication, unspecified; I25.10 Atherosclerotic heart disease of native coronary artery without angina pectoris; J44.9 Chronic obstructive pulmonary disease, unspecified; Z86.718 Personal history of other venous thrombosis and embolism; E78.00 Pure hypercholesterolemia, unspecified; E78.5 Hyperlipidemia, unspecified; Z86.711 Personal history of pulmonary embolism; G62.9 Polyneuropathy, unspecified; Z95.1 Presence of aortocoronary bypass graft; F17.210 Nicotine dependence, cigarettes, uncomplicated; Z79.01 Long term (current) use of anticoagulants; Z79.899 Other long term (current) drug therapy

== ENCOUNTER 2017-11-09 08:10 | Day surgery (SDC) | payer OTHER ==
[~2017-11-09] VITALS: Ht 185.4 cm
[~2017-11-09 08:10] MED LIST changes: +LACTATED RINGER'S 1000ML 1,000 ML IV SCH; +RANI150T85 PO; -ZNTT/150 PO
[2017-11-09 08:40] VITALS: BP 131/66; PULSE 77; TEMP 36.6; O2SAT 97; Ht 185.4 cm
--- NOTE | 2017-11-09 08:53 | History and Physical ---
History & Physical Date of Service Nov 09, 2017. History & Physical Chief Complaint Gangrene right great toe History of Present Illness The patient is a 72 year old male with hx of DVT, HTN, hypercholesterolemia, admitted d/t discoloration of BLE, seen in consultation today for ischemic BLE. Pt denies pain in BLE and states he is able to walk 100 yds without any problems or pain. Pt is noted to be a very poor historian. When asked, pt states he noted discoloration and "black lines" on his BL great toes and that is the only reason he is here. Denies BELL, fever, chills, chest pain, SOB, abd pain, N/V, rest pain, claudication, ulcers or other complaints. Pt had revascularization of the left lower extremity. Nothing was done to the right. Pt states he smokes 5-6 cigarettes daily. Allergies Coded Allergies: No Known Allergies (Unverified , 09/16/17) Home Medications Scheduled Aspirin (Aspirin Ec), 81 MG PO DAILY Atorvastatin (Lipitor), 80 MG PO DAILY Calcium/Vitamin D (Os-Lowell 500 Plus D), 1 TAB PO BID Clopidogrel (Plavix), 75 MG PO DAILY Cyanocobalamin (Vitamin B-12), 1,000 MCG PO DAILY Enalapril (Vasotec), 5 MG PO DAILY Ferrous Sulfate (Kp Ferrous Sulfate), 325 TAB PO BID Folic Acid (Folvite), 1 MG PO DAILY Gabapentin (Neurontin), 100 MG PO TID Magnesium Oxide (Mag-Ox), 400 MG PO BID Multivitamins/Minerals (Mvi With Minerals), 1 TAB PO DAILY Nutritional Supplements (Boost), 1 CAN PO BID Ranitidine (Zantac), 150 MG PO DAILY Sertraline (Zoloft), 50 MG PO DAILY Thiamine Hcl (Vitamin B-1), 50 MG PO DAILY Warfarin Sod (Jantoven), 2 MG PO DAILY@1600 Scheduled PRN Acetaminophen (Tylenol), 650 MG PO Q6 PRN for Pain or Fever Magnesium Hydroxide (Milk of Magnesia), 30 ML PO DAILY PRN for Constipation Problem List Medical Problems: (1) Alcohol use disorder (2) CAD (coronary artery disease) (3) Closed fracture of proximal end of left humerus (4) COPD (chronic obstructive pulmonary disease) (5) Depression (6) DVT (deep venous thrombosis) (7) History of alcohol abuse (8) Hypercholesteremia (9) Hyperlipidemia (10) Malnutrition (11) SD (myocardial infarction) (12) PE (pulmonary embolism) (13) Peripheral neuropathy (14) Warfarin anticoagulation Surgical Problems: (1) H/o neuroma removed from foot (2) History of carpal tunnel surgery (3) Hx of CABG (4) S/P coronary artery stent placement Surgical / Medical History Hx Cardiac Surgery: Yes Hx Abdominal Surgery: Yes (HERNIA) Hx Cancer Surgery: No Hx Thoracic Surgery: No Hx Orthopedic: No Hx Urinary Tract Surgery: No Past Medical/Surgical History: Heart Disease, High Cholesterol, Hypertension Family History Patient reports no known family medical history Social History Smoking Status: Current Every Day Smoker Hx Tobacco Use In Past Year?: No Hx Alcohol Use - Type & Amnt: Yes (3+ WHISKEY AND MIXED DRINKS/DAY) Hx Substance Use -Type & Amnt: No Review of Systems Constitutional: No chills, No fever, No malaise Skin: + change in color Eyes: No visual changes ENMT: No sore throat Respiratory: No cough, No SHERIFF, No hemoptysis Cardiovascular: No chest pain, No palpitations, No syncope, No edema, No intermittent claudication Gastrointestinal: No abdominal pain, No nausea, No vomiting Musculoskeletal: No back pain Neurologic: No dizziness, No headache, No lethargy, No numbness, No tingling ( Sara Cuevas, PA-C) Physical Exam Constitutional: General Apperance: well-nourished, well-developed, too thin Level of Distress: NAD, chronically ill Psychiatric: Mental Status: active & alert, normal mood, normal affect Orientation: oriented except where noted, to time, to place, to person Memory: recent memory abnormal (vague, poor historian), remote memory abnormal (vague, poor historian) Head: normocephalic, atraumatic Eyes: EOM: EOMI ENMT: normal ENT inspection, hearing grossly normal Neck: supple, trachea midline Lungs: Respiratory effort: no dyspnea Auscultation: no rales/crackles, no rhonchi, expiratory wheezing Cardiovascular: Apical Impulse: not displaced Heart Auscultation: RRR, no rubs, no gallops Peripheral Pulses: Pulses: full and equal, in all extremities except if noted Bruits: none appreciated Carotid Pulse: normal on the left, normal on the right Brachial Pulses: normal on the left, normal on the right Radial Pulse: normal on the left, normal on the right Femoral Pulse: normal on the left, normal on the right Posterior Tibialis Pulse: absent on the left, absent on the right Dorsalis Pedis Pulse: absent on the left, absent on the right Abdomen: Bowel Sounds: normal Inspection & Palpation: soft, non-distended, no tenderness, guarding & rebound Musculoskeletal: normal strength (5/5 throughout), normal tone Extremities: Upper Right: no cyanosis, no edema, no varicosities Upper Left: no cyanosis, no edema, no varicosities Lower Right: gangrene right great toe Lower Left: amputation of the left foot healing well Neurologic: Cranial Nerves: grossly intact Assessment and Plan ASSESSMENT and PLAN: LLE severe PAD post amputation of toes RLE severe PAD with gangrene of the great toe Plan: Patient is admitted for amputation of the right great toe. I have discussed the risks options and benefits of the procedure with the patient. The patient understands the risks options and benefits and agrees to the procedure.
[2017-11-09] MEDS ORDERED: MIDAZOLAM HCL 1 MG/ML 2ML VIAL ONE (08:57)
[2017-11-09] MEDS ORDERED: FENTANYL CITRATE INJ 50 MCG/1 ML 2 ML VIAL ONE (08:58)
[2017-11-09] MEDS ORDERED: CEFAZOLIN SOD 1000MG/7.5 ML IV PUSH IV ONE (09:01)
[2017-11-09 09:25] LABS: BASO % 0.3 %; BASO ABS # 0.02 K/uL (0-0.2); EOS % 3.2 %; HEMATOCRIT 27.7 % (42-52); HEMOGLOBIN 9.7 g/dL (14.0-18.0); IG# 0.01 K/uL (0.00-0.02); LYMPH % 15.3 %; LYMPH ABS # 0.96 K/uL (1.2-3.4); MEAN CELL VOLUME 89.6 fL (80-100); MEAN CORPUSCULAR HEMOGLOBIN 31.4 pg (25-34); MEAN PLATELET VOLUME 9.3 fL (7.4-10.4); MONO % 8.1 %; MONO ABS # 0.51 K/uL (0.11-0.59); NEUT % 72.9 %; NEUT ABS # 4.59 K/uL (1.4-6.5); PLATELET COUNT 254 K/uL (130-400); RED CELL DISTRIBUTION WIDTH CV 16.2 % (11.5-14.5); RED CELL DISTRIBUTION WIDTH SD 52.5 fL (36.4-46.3); WHITE BLOOD COUNT 6.29 K/uL (4.8-10.8)
[2017-11-09 09:41] LABS: POTASSIUM 3.5 mmol/L (3.5-5.1)
[2017-11-09 09:44] LABS: PTT PATIENT 51.4 SECONDS (21.0-31.0)
[2017-11-09] MEDS ORDERED: LIDOCAINE HCL 1% 20 ML VIAL ONE (09:50)
[2017-11-09] MEDS ORDERED: BUPIVACAINE 0.5 % 5 MG/1 ML MPF 30ML VIAL ONE (09:50)
[2017-11-09 09:57] LABS: INR 4.2 (0.9-1.1)
[2017-11-09] MEDS ORDERED: CEFAZOLIN IV 1,000 MG in DEXTROSE 5% 50ML 50 ML IV SCH (10:00)
[2017-11-09] MEDS ORDERED: LIDOCAINE HCL 2% 2 ML VIAL (20MG/ML) ONE (10:04)
[2017-11-09] MEDS ORDERED: PROPOFOL IV EMULSION 10 MG/ML 20 ML VIAL IV ONE (10:04)
[2017-11-09] MEDS ORDERED: KETAMINE HCL INJ 50 MG/ML 10 ML VIAL ONE (10:05)
--- NOTE | 2017-11-09 10:22 | [facility] Post Operative Brief Note ---
Immediate Operative Summary Operative Date Nov 09, 2017. Pre-Operative Diagnosis Gangrene right great toe Post-Operative Diagnosis Gangrene right great toe Procedure(s) Performed Amputation right great toe Surgeon jah Color Control Operator Surgeon(s) Sara Cuevas, PAC Estimated Blood Loss 5cc Findings Consistent with Post-Op Diagnosis Specimens right great toe cultures Drains None Anesthesia Type MAC Complication(s) none Disposition Accompanied Pt To Recover: no Disposition: Recovery Room / PACU
[2017-11-09] MEDS ORDERED: NALOXONE HCL 0.4 MG/1 ML VIAL/CARP IV PRN (10:45)
[2017-11-09] MEDS ORDERED: FLUMAZENIL 0.1 MG/1 ML 10 ML VIAL IV PRN (10:45)
[2017-11-09] MEDS ORDERED: FENTANYL CITRATE INJ 50 MCG/1 ML 2 ML VIAL IV PRN (10:45)
[2017-11-09] MEDS ORDERED: ONDANSETRON INJ 2 MG/ML 2 ML VIAL IV PRN (10:45)
[2017-11-09] MEDS ORDERED: EpHEDrine SULFATE INJ 50 MG/ML AMP IV PRN (10:45)
[2017-11-09] MEDS ORDERED: ATROPINE SULFATE 0.1 MG/ML 5ML SYR IV PRN (10:45)
[2017-11-09] MEDS ORDERED: LABETALOL HCL IV 5 MG/ML 20ML IV PRN (10:45)
--- NOTE | 2017-11-09 10:54 | Discharge Instructions ---
Discharge Instructions Date of Service Nov 09, 2017. Visit Reason for Visit: Gangrene Right Great Toe Discharge Discharge Diagnosis / Problem: Gangrene right great toe Discharge Goals Goal(s): Therapeutic intervention Activity Recommendations Activity Limitations: per Instructions/Follow-up section Anesthesia . Post Anesthesia Instructions: If you have had General Anesthesia or IV Sedation: * Do not drive today. * Resume driving when surgeon permits. * Do not make important decisions or sign legal documents today. * Call surgeon for: 1. Temperature elevations greater than 101 degrees F. 2. Uncontrollable pain. 3. Excessive bleeding. 4. Persistent nausea and vomiting. 5. Medication intolerance (nausea, vomiting or rash). * For nausea and vomiting use only clear liquids such as: tea, soda, bouillon until nausea subsides, then gradually increase diet as tolerated. * If you have any concerns or questions, call your surgeon's office. If physician is unavailable and it is an emergency, call 911 or go to the nearest emergency room. . Instructions / Follow-Up Instructions / Follow-Up Call [phone] to schedule a follow up appointment if one not already scheduled. Follow up with coagulation clinic for INR ACTIVITY RECOMMENDATIONS: See Above SPECIAL CARE INSTRUCTIONS: Call your doctor if: * Temperature above 101 degrees * Pain not relieved by pain medicine ordered * There is increased drainage or redness from any incision * You have any unanswered questions or concerns. Diet Recommendations Recommended Home Diet: resume previous diet Procedures Procedures Performed: Amputation right great toe Pending Studies Studies pending at discharge: no Medical Emergencies . Who to Call and When: Medical Emergencies: If at any time you feel your situation is an emergency, please call 911 immediately. . Non-Emergent Contact Non-Emergency issues call your: Surgeon . . "Provider Documentation" section prepared by Abhijeet Hussein. .
[2017-11-09 11:15] VITALS: BP 148/78; PULSE 92; TEMP 36.6; O2SAT 98
--- NOTE | 2017-11-09 11:23 | Anesthesiology Progress Note ---
Anesthesia Post Op Note Date & Time Nov 09, 2017 at 11:22 Vital Signs Pain Intensity: 0 Vital Signs Past 12 Hours Date Time Temp Pulse Resp B/P (MAP) Pulse Ox O2 Delivery O2 Flow Rate FiO2 11/09/17 11:03 36.3 11/09/17 11:02 72 16 98 11/09/17 11:02 73 16 11/09/17 11:00 141/69 11/09/17 10:57 76 18 11/09/17 10:57 77 18 100 11/09/17 10:55 131/75 11/09/17 10:52 68 16 99 11/09/17 10:52 68 16 11/09/17 10:50 131/71 11/09/17 10:47 74 12 11/09/17 10:47 74 12 100 11/09/17 10:46 76 26 99 11/09/17 10:46 71 26 11/09/17 10:45 128/62 11/09/17 10:41 72 17 100 11/09/17 10:41 72 17 11/09/17 10:40 128/64 11/09/17 10:36 70 117/80 100 11/09/17 10:36 36.4 73 16 117/80 100 Room Air 11/09/17 10:36 70 11/09/17 08:40 36.6 77 20 131/66 (87) 97 Room Air Notes Mental Status: alert / awake / arousable, participated in evaluation Pt Amnestic to Procedure: Yes Nausea / Vomiting: adequately controlled Pain: adequately controlled Airway Patency, RR, SpO2: stable & adequate BP & HR: stable & adequate Hydration State: stable & adequate Anesthetic Complications: no major complications apparent
[2017-11-09 11:45] VITALS: BP 154/74; PULSE 67; O2SAT 98
[2017-11-09 12:13] VITALS: BP 124/66; PULSE 67; TEMP 36.6; O2SAT 99
[2017-11-09 13:15] VITALS: BP 156/56; PULSE 80; TEMP 36.7; O2SAT 100
--- NOTE | 2017-11-10 11:08 | Progress Note ---
Progress Note Date of Service Nov 10, 2017. Progress Note I assisted Dr Hussein with Sven Doty's Amputation right great toe on 11/09/17, d/t lack of resident availability.
--- NOTE | 2017-12-02 10:05 | OPERATIVE REPORT ---
DATE OF OPERATION: 11/09/2017 PREOPERATIVE DIAGNOSIS: Gangrene, right great toe. POSTOPERATIVE DIAGNOSIS: Same. PROCEDURE: Amputation, right great toe. SURGEON: Dr. Hussein. CUSTOMS BROKER: Sara Cuevas PA-C. PROCEDURE INDICATIONS: The patient is a 72-year-old gentleman with gangrene at the tip of the right great toe. Amputation was recommended. He understood the risks, options and benefits, and agreed to have this procedure. The patient was taken to the operating room and placed in supine position. After ankle block was administered, incision was made around the base of the great toe, below the line of demarcation. This was carried down to the proximal phalangeal bone. Bone was then transected. All necrotic tissue was then removed. There was acceptable bleeding noted at that time. The wound was then closed with interrupted nylon sutures in the usual fashion. Sterile dressings were applied and the patient left the operating room in satisfactory condition and tolerated the procedure well. Sara Cuevas PA-C, assisted due to lack of resident availability. I attest to the content of the Intraoperative Record and any orders documented therein. Any exception s are noted below.
== END 2017-11-09 13:59 | disposition home or self-care (01) ==
LOC: C.ACU 08:10
PROVIDERS: ATTEND Surgery Vascular Surgery
DX: I96 Gangrene, not elsewhere classified (principal); M86.171 Other acute osteomyelitis, right ankle and foot; E78.00 Pure hypercholesterolemia, unspecified; E78.5 Hyperlipidemia, unspecified; F17.210 Nicotine dependence, cigarettes, uncomplicated; F10.929 Alcohol use, unspecified with intoxication, unspecified; I25.10 Atherosclerotic heart disease of native coronary artery without angina pectoris; I10 Essential (primary) hypertension; Z95.5 Presence of coronary angioplasty implant and graft; Z79.82 Long term (current) use of aspirin; Z79.02 Long term (current) use of antithrombotics/antiplatelets; Z79.899 Other long term (current) drug therapy; I25.2 Old myocardial infarction; Z86.718 Personal history of other venous thrombosis and embolism; Z79.01 Long term (current) use of anticoagulants

== ENCOUNTER 2017-11-19 06:05 | Inpatient (IN) | payer OTHER ==
[~2017-11-19] VITALS: Ht 185.4 cm; Wt 61.3 kg
--- NOTE | 2017-11-19 05:56 | History and Physical ---
History & Physical Date of Service Nov 19, 2017. History & Physical Chief Complaint Gangrene right great toe amputation site History of Present Illness The patient is a 72 year old male with hx of DVT, HTN, hypercholesterolemia, admitted d/t discoloration of BLE, seen in consultation today for ischemic BLE. Pt denies pain in BLE and states he is able to walk 100 yds without any problems or pain. Pt is noted to be a very poor historian. When asked, pt states he noted discoloration and "black lines" on his BL great toes and that is the only reason he is here. He underwent a left fem peroneal bypass in the recent past for limb salbage and a right great toe amp. The amuptation site is now gangrenous. He does have a proximal peroneal on the right that was patent on angio. He is admitted now for a limb salvage bypass on the right lower extremity. Denies BELL, fever, chills, chest pain, SOB, abd pain, N/V, rest pain , claudication, ulcers or other complaints. Pt had revascularization of the left lower extremity. Nothing was done to the right. Pt states he smokes 5-6 cigarettes daily. Allergies Coded Allergies: No Known Allergies (Unverified , 09/16/17) Home Medications Scheduled Aspirin (Aspirin Ec), 81 MG PO DAILY Atorvastatin (Lipitor), 80 MG PO DAILY Calcium/Vitamin D (Os-Lowell 500 Plus D), 1 TAB PO BID Clopidogrel (Plavix), 75 MG PO DAILY Cyanocobalamin (Vitamin B-12), 1,000 MCG PO DAILY Enalapril (Vasotec), 5 MG PO DAILY Ferrous Sulfate (Kp Ferrous Sulfate), 325 TAB PO BID Folic Acid (Folvite), 1 MG PO DAILY Gabapentin (Neurontin), 100 MG PO TID Magnesium Oxide (Mag-Ox), 400 MG PO BID Multivitamins/Minerals (Mvi With Minerals), 1 TAB PO DAILY Nutritional Supplements (Boost), 1 CAN PO BID Ranitidine (Zantac), 150 MG PO DAILY Sertraline (Zoloft), 50 MG PO DAILY Thiamine Hcl (Vitamin B-1), 50 MG PO DAILY Warfarin Sod (Jantoven), 2 MG PO DAILY@1600 Scheduled PRN Acetaminophen (Tylenol), 650 MG PO Q6 PRN for Pain or Fever Magnesium Hydroxide (Milk of Magnesia), 30 ML PO DAILY PRN for Constipation Problem List Medical Problems: (1) Alcohol use disorder (2) CAD (coronary artery disease) (3) Closed fracture of proximal end of left humerus (4) COPD (chronic obstructive pulmonary disease) (5) Depression (6) DVT (deep venous thrombosis) (7) History of alcohol abuse (8) Hypercholesteremia (9) Hyperlipidemia (10) Malnutrition (11) MS (myocardial infarction) (12) PE (pulmonary embolism) (13) Peripheral neuropathy (14) Warfarin anticoagulation Surgical Problems: (1) H/o neuroma removed from foot (2) History of carpal tunnel surgery (3) Hx of CABG (4) S/P coronary artery stent placement Surgical / Medical History Hx Cardiac Surgery: Yes Hx Abdominal Surgery: Yes (HERNIA) Hx Cancer Surgery: No Hx Thoracic Surgery: No Hx Orthopedic: No Hx Urinary Tract Surgery: No Past Medical/Surgical History: Heart Disease, High Cholesterol, Hypertension Family History Patient reports no known family medical history Social History Smoking Status: Current Every Day Smoker Hx Tobacco Use In Past Year?: No Hx Alcohol Use - Type & Amnt: Yes (3+ WHISKEY AND MIXED DRINKS/DAY) Hx Substance Use -Type & Amnt: No Review of Systems Constitutional: No chills, No fever, No malaise Skin: + change in color Eyes: No visual changes ENMT: No sore throat Respiratory: No cough, No SHERIFF, No hemoptysis Cardiovascular: No chest pain, No palpitations, No syncope, No edema, No intermittent claudication Gastrointestinal: No abdominal pain, No nausea, No vomiting Musculoskeletal: No back pain Neurologic: No dizziness, No headache, No lethargy, No numbness, No tingling Physical Exam Constitutional: General Apperance: well-nourished, well-developed, too thin Level of Distress: NAD, chronically ill Psychiatric: Mental Status: active & alert, normal mood, normal affect Orientation: oriented except where noted, to time, to place, to person Memory: recent memory abnormal (vague, poor historian), remote memory abnormal (vague, poor historian) Head: normocephalic, atraumatic Eyes: EOM: EOMI ENMT: normal ENT inspection, hearing grossly normal Neck: supple, trachea midline Lungs: Respiratory effort: no dyspnea Auscultation: no rales/crackles, no rhonchi, expiratory wheezing Cardiovascular: Apical Impulse: not displaced Heart Auscultation: RRR, no rubs, no gallops Peripheral Pulses: Pulses: full and equal, in all extremities except if noted Bruits: none appreciated Carotid Pulse: normal on the left, normal on the right Brachial Pulses: normal on the left, normal on the right Radial Pulse: normal on the left, normal on the right Femoral Pulse: normal on the left, normal on the right Posterior Tibialis Pulse: absent on the left, absent on the right Dorsalis Pedis Pulse: absent on the left, absent on the right Abdomen: Bowel Sounds: normal Inspection & Palpation: soft, non-distended, no tenderness, guarding & rebound Musculoskeletal: normal strength (5/5 throughout), normal tone Extremities: Upper Right: no cyanosis, no edema, no varicosities Upper Left: no cyanosis, no edema, no varicosities Lower Right: gangrene right great toe amputation site Lower Left: amputation of the left foot healing well Neurologic: Cranial Nerves: grossly intact Assessment and Plan ASSESSMENT and PLAN: LLE severe PAD post amputation of toes RLE severe PAD with gangrene of the great toe amputation site Plan: Patient is admitted for a right femoral to peroneal bypass. I have discussed the risks options and benefits of the procedure with the patient. The patient understands the risks options and benefits and agrees to the procedure.
[~2017-11-19 06:05] MED LIST changes: +CEFAZOLIN 1000MG IV PUSH 7.5 ML IV SCH; -LACTATED RINGER'S 1000ML 1,000 ML IV SCH; +LACTATED RINGER'S 1000ML 500 ML IV SCH; +PATIENT'S HEIGHT AND/OR WEIGHT NEEDED SCH; +SODIUM CHLORIDE 0.9% 1000ML 1,000 ML IV SCH
[2017-11-19 06:41] VITALS: BP 141/60; PULSE 90; TEMP 36.8; O2SAT 95; BMI 18.0
[2017-11-19] MEDS ORDERED: BUPIVACAINE/EPINEPHRINE 0.5% MPF 1:200,000 30 ML VIAL ONE (06:58)
[2017-11-19] MEDS ORDERED: GELATIN SPONGE SZ 100 ONE (06:58)
[2017-11-19] MEDS ORDERED: LIDOCAINE HCL 1% 20 ML VIAL ONE (06:59)
[2017-11-19] MEDS ORDERED: IODIXANOL (VISIPAQUE) 270 MG/ML 50ML ONE (06:59)
[2017-11-19] MEDS ORDERED: HEPARIN SOD (PORCINE) 1000 UNIT/ML 10 ML VIAL ONE (06:59)
[2017-11-19] MEDS ORDERED: PAPAVERINE HCL INJ 30 MG/ML 2 ML VIAL ONE (06:59)
[2017-11-19] MEDS ORDERED: THROMBIN 5000 UNITS KIT ONE (06:59)
[2017-11-19] MEDS ORDERED: CEFAZOLIN SOD 1 GM VIAL ONE (06:59)
[2017-11-19] MEDS ORDERED: FERR1TAB13 PO (07:24)
--- NOTE | 2017-11-19 07:27 | History & Physical Bridge Note ---
H&P Re-Evaluation Bridge Note: I have examined the patient, reviewed the History & Physical and in the interval since the performance of the History & Physical I have noted the following changes of clinical significance: No changes noted
[2017-11-19 07:52] LABS: HEMATOCRIT 30.3 % (42-52); HEMOGLOBIN 10.2 g/dL (14.0-18.0)
[2017-11-19 08:11] LABS: INR 4.9 (0.9-1.1); PTT PATIENT 58.3 SECONDS (21.0-31.0)
[2017-11-19 08:14] LABS: CALCIUM 8.4 mg/dl (8.5-10.1); POTASSIUM 3.5 mmol/L (3.5-5.1)
--- NOTE | 2017-11-19 08:25 | Anesthesiology Progress Note ---
Anesthesia Progress Note Date of Service Nov 19, 2017. Progress Notes Patient's surgical procedure has been cancelled due to elevated PT-49.7 and INR 4.9. Discussed with Dr Hussein., he's in agreement.
--- NOTE | 2017-11-19 08:41 | Progress Note ---
Progress Note Date of Service Nov 19, 2017. Progress Note Surgery cancelled due to high INR. Will admit for workup by the hospitalist
[2017-11-19] MEDS ORDERED: POLYETHYLENE (MIRALAX) 17 GM PACK PO PRN (10:00)
[2017-11-19] MEDS ORDERED: ACETAMINOPHEN 325 MG TAB PO PRN (10:00)
[2017-11-19] MEDS ORDERED: ONDANSETRON INJ 2 MG/ML 2 ML VIAL IV PRN (10:00)
[2017-11-19] MEDS ORDERED: PHYTONADIONE 5 MG TAB PO ONE (10:15)
[2017-11-19 10:50] VITALS: BP 149/76; PULSE 69; TEMP 36.5; O2SAT 98
[2017-11-19] MEDS ORDERED: IV FLUIDS COMPLETED PRN ×2 (12:00→17:00)
[2017-11-19] MEDS ORDERED: LORAZEPAM 1 MG TAB PO PRN (13:00)
[2017-11-19] MEDS: GABAPENTIN 100 MG CAP PO SCH ×2 (13:25→21:03)
--- NOTE | 2017-11-19 13:25 | History and Physical ---
History & Physical Date & Time of Service: Nov 19, 2017 at 12:18 Chief Complaint: Peripheral Arterial Disease with Gangrene Primary Care Physician: Prem Stuart D.O. History of Present Illness Source: patient, hospital records Pt is 72 y/o M with PMH HTN, hyperlipidemia, CAD s/p CABG, COPD, hx ETOH abuse, dementia, tobacco abuse, chronic malnutrition, hx DVT/PE on Coumadin, PAD, presented today for vascular surgery for limb salvage RLE by Dr Hussein. 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 Pt has been having pain to R foot. His INR is 4.9 this morning and his surgery was cancelled. Pt states that his daughter does his medications for him. He is unsure if he has been taking Coumadin. Spoke to Sara Cuevas PA-C and she reports daughter reported that she did not restart the Coumadin since his last procedure 2 weeks ago? I have tried to reach daughter by phone and have been unable. Pt thought he used [facility] or [facility] in [place]. I have contacted those pharmacies and neither have warfarin being filled there. Pt denies fever/chills, diaphoresis, N/V/D/C, BELL, dizziness, syncope, vision changes, neck pain, CP, SOB, orthopnea, palpitations, cough, sore throat, choking, otalgia, rhinorrhea, abdominal pain, urinary symptoms. denies melena, hematochezia, hematuria, epistaxis Past Medical/Surgical History Medical Problems: (1) Alcohol intoxication Status: Resolved (2) Alcohol use disorder Status: Chronic (3) CAD (coronary artery disease) Status: Chronic (4) Closed fracture of proximal end of left humerus Status: Resolved (5) COPD (chronic obstructive pulmonary disease) Status: Chronic (6) Depression Status: Chronic (7) DVT (deep venous thrombosis) Status: Resolved (8) History of alcohol abuse Status: Chronic (9) Hypercholesteremia Status: Chronic (10) Hyperlipidemia Status: Chronic (11) Malnutrition Status: Chronic (12) SC (myocardial infarction) Status: Resolved (13) PE (pulmonary embolism) Status: Resolved (14) Peripheral neuropathy Status: Chronic (15) Warfarin anticoagulation Status: Chronic Surgical Problems: (1) H/o neuroma removed from foot Status: Chronic (2) History of carpal tunnel surgery Status: Chronic (3) Hx of CABG Status: Chronic (4) S/P coronary artery stent placement Status: Chronic Family History Coronary artery disease in mother Diabetes mellitus Social History Smoking Status: Current Every Day Smoker (smokes 1-5 cigarettes daily) Smokeless Tobacco Use: No Alcohol Use: occasionally (pt states drinks liquor a couple of times a week, reports didn't drink past 2 days) Drug Use: none Allergies Coded Allergies: No Known Allergies (Unverified , 11/19/17) Home Medications Scheduled Amoxicillin & Pot Clavulanate (Amoxicillin/Clavulanate P), 875 PO BID Atorvastatin (Lipitor), 80 MG PO QDD Calcium/Vitamin D (Os-Lowell 500 Plus D), 1 TAB PO BID Cyanocobalamin (Vitamin B-12), 1,000 MCG PO QAM Ferrous Sulfate (Kp Ferrous Sulfate), 1 TAB PO DAILY Folic Acid (Folvite), 1 MG PO QAM Gabapentin (Neurontin), 100 MG PO TID Magnesium Oxide (Mag-Ox), 400 MG PO BID Nutritional Supplements (Boost), 1 CAN PO BID Ranitidine (Zantac), 150 MG PO QAM Senna/Docusate Sod (Senokot S), 1 TAB PO QDL Sertraline (Zoloft), 50 MG PO QAM Thiamine Hcl (Vitamin B-1), 50 MG PO QAM Warfarin Sod (Jantoven), Unknown Dose PO UD Scheduled PRN Acetaminophen (Tylenol), 650 MG PO Q6 PRN for Pain or Fever Oxycodone/Acetaminophen 5MG/325MG (Percocet 5MG/325MG), 1 TABLET PO Q6 PRN for Pain Review of Systems See HPI for pertinent positives & negatives. All other systems reviewed and were otherwise negative Physical Exam Vital Signs Date Time Temp Pulse Resp B/P (MAP) Pulse Ox O2 Delivery O2 Flow Rate FiO2 11/19/17 10:50 98 Room Air 11/19/17 10:50 36.5 69 18 149/76 (100) 98 Room Air 11/19/17 06:41 36.8 90 18 141/60 95 Room Air General Appearance: no apparent distress, + thin Head: normocephalic, atraumatic Eyes: normal inspection, PERRL, EOMI, sclerae normal ENT: hearing grossly normal, pharynx normal, + pertinent finding (mucous membranes moist) Neck: supple, no JVD, trachea midline Respiratory/Chest: no respiratory distress, no accessory muscle use, + wheezing (faint scattered) Cardiovascular: regular rate, rhythm, no murmur Abdomen/GI: normal bowel sounds, non tender, soft Extremities/Musculoskelatal: + pertinent finding (Left great toe and 2nd toe amputated, R great toe amputated with gangrene at site. non-palpable dorsalis pedis pulses non-palpable bilaterally) Neurologic/Psych: alert, + pertinent finding (pt poor historian, alert to person and place, confused to time) Skin: warm/dry, + pertinent finding (see extremities) Diagnostics Laboratory Results Results Past 24 Hours Test 11/19/17 07:39 11/19/17 07:43 Range/Units Prothrombin Time 49.7 9.0-12.0 SECONDS Prothromb Time International Ratio 4.9 0.9-1.1 Activated Partial Thromboplast Time 58.3 21.0-31.0 SECONDS Partial Thromboplastin Ratio 2.2 Sodium Level 139 136-145 mmol/L Potassium Level 3.5 3.5-5.1 mmol/L Chloride Level 106 98-107 mmol/L Carbon Dioxide Level 26 21-32 mmol/L Anion Gap 7.0 3-11 mmol/L Blood Urea Nitrogen 8 7-18 mg/dl Creatinine 1.00 0.60-1.40 mg/dl Est Creatinine Clear Calc Drug Dose 61.0 ml/min Estimated GFR () 87.4 Estimated GFR (Non- 75.4 BUN/Creatinine Ratio 8.1 10-20 Random Glucose 97 70-99 mg/dl Calcium Level 8.4 8.5-10.1 mg/dl Hemoglobin 10.2 14.0-18.0 g/dL Hematocrit 30.3 42-52 % Impression Assessment and Plan SUPRA THERAPEUTIC INR INR: 4.9 today. Unable to perform scheduled surgery. Pt's daughter reportedly does pt's meds. I was unable to contact daughter. Question of warfarin has been held?, it has been reported that daughter reports hasn't been taking it? No active bleeding, denies melena, hematochezia, hematuria, epistaxis. -Hold Coumadin -Vitamin K 2.5po -LFT's -Monitor PTT, PT-INR -Heme/onc consult PAD Hx BLE severe PAD. Hx s/p ambulation L great toe and L 2nd toe amputations and R great toe amputation Current gangrene at site of R great toe amputation and was scheduled for limb salvage surgery today by Dr Hussein. Surgery cancelled secondary to elevated INR. Pt tentatively on schedule for 11/24/17. -continue gabapentin CAD S/P CABG No CP, SOB -continue lipitor CHRONIC MALNUTRITION/HX ETOH ABUSE Pt denies drinking ETOH past 2 days, doesn't remember prior to that. He reports drinking a couple of times a week -continue boost -watch for ETOH withdrawal symptoms, Ativan prn. low threshold for transfer to tele if occurs -continue thiamine, folic acid, B12 GERD -continue ranitidine DEMENTIA monitor DVT Prophylaxis -SCD Disposition admit med surg Full Code as per discussion with pt Follows with Dr Fernandez for routine care Pt was seen with Dr Caputo. See addendum Agree with above H and P. briefly 72M with hx of alcohol abuse, Severe PAD, CAD s/p cabg was supposed to get limb salvage bypass surgery on right lower extremity ad found to have elevated INR though supposedly it was held for last two weeks as per daughter and surgery was cancelled and we were called for admission. Patient denies any pain. Currently living at home with help. Says he is ambulating ok at home. no fevers. No sob or chest pain. Has some dementia. 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 right great toe site gangrenous a/p supra therapeutic INR supposedly held Coumadin for 2 weeks? inr 4.9 today received vitamin k follow ft's f/u inr in am heme/onco consulted for any further inputs Severe PAD s/p b/l amputation of great toes and recently had limb salvage bypass surgery on left leg right great toe site gangrenous plan for right limb salvage bypass surgery planned today but held for elevated inr. vascular surgery consulted empiric abx iv Zosyn Level of Care Med/Surg Advanced Directives Existing Living Will: No Existing Power of Division Sales Manager: No Resuscitation Status FULL RESUSCITATION VTE Prophylaxis VTE Risk Assessment Done? Y/N: Yes Risk Level: Moderate Given or contraindicated: SCD's Additional Copies To Chayito Fernandez MD
[2017-11-19 13:34] VITALS: Ht 185.4 cm; Wt 61.3 kg
[2017-11-19 15:26] VITALS: BP 111/41; PULSE 72; TEMP 36.5; O2SAT 96
[2017-11-19 17:10] VITALS: O2SAT 96
[2017-11-19] MEDS: BOOST VANILLA PO SCH (17:29)
[2017-11-19] MEDS: ATORVASTATIN 40 MG TAB PO SCH (17:30)
[2017-11-19] MEDS: OXYCODONE/ACETAMINOPHEN 5-325 TAB PO PRN (17:36)
--- NOTE | 2017-11-19 18:46 | Medical Consult ---
Consultation Date of Consultation: Nov 19, 2017. Attending Physician: Chris Caputo MD Reason for Consultation: Elevated PT/INR History of Present Illness 72 year old male with PMH of PVD, DVT/PE, COPD, CAD s/p CABG, HTN, hyperlipidemia, active smoker, chronic malnutrition, alcohol abuse, dementia, who is admitted for vascular surgery - for limb salvage of his RLE. Patient was found to have elevated INR of 4.9 and his surgery has been postponed. Patient states that he is taking coumadin but he is uncertain when the medication was last taken but said he thinks it was about 2 days ago. He denies any bruising or bleeding symptoms or abdominal pain or fever or chills or swollen glands He has pain in his right foot - had right toe amputation, now gangrene He is a current smoker and is not interested in quitting He was given vitamin K 2.5mg earlier today Past Medical/Surgical History Severe PVD, history of DVT/PE, COPD, CAD s/p CABG, HTN, hyperlipidemia, active smoker, chronic malnutrition, alcohol abuse, dementia neuroma of foot removed carpal tunnel surgery, ID, PERIPHERAL NEUROPATHY, DEPRESSION, CLOSED FRACTURE OF PROXIMAL END OF LEFT HUMERUS Family History Coronary artery disease in mother Diabetes mellitus He is uncertain of his family history Does not recall if there is any family history of blood clots Social History Smoking Status: Current Every Day Smoker (smokes 1-5 cigarettes daily) Smokeless Tobacco Use: No Alcohol Use: occasionally (pt states drinks liquor a couple of times a week, reports didn't drink past 2 days) Drug Use: none Housing Status: lives alone Allergies Coded Allergies: No Known Allergies (Unverified , 11/19/17) Current Inpatient Medications Current Inpatient Medications Medications (Trade) Dose Ordered Sig/Nieves Route Start Time Stop Time Status Last Admin Dose Admin Cefazolin Sodium 7.5 ml @ 2.5 mls/min PREOP IV 11/19/17 06:00 11/19/17 18:00 Sodium Chloride 1,000 ml @ 80 mls/hr [id number] IV 11/19/17 06:00 11/19/17 18:29 Acetaminophen (Tylenol Tab) 650 mg Q4H PRN PO 11/19/17 10:00 12/19/17 09:59 Polyethylene (Miralax Powder Packet) 17 gm DAILY PRN PO 11/19/17 10:00 12/19/17 09:59 Ondansetron HCl (Zofran Inj) 4 mg Q6H PRN IV 11/19/17 10:00 12/19/17 09:59 Atorvastatin Calcium (Lipitor Tab) 80 mg QDD PO 11/19/17 17:45 12/19/17 17:59 11/19/17 17:30 80 MG Calcium/Vitamin D (Caltrate Plus Tab) 1 tab BID PO 11/19/17 21:00 12/19/17 20:59 Cyanocobalamin (Vitamin B-12 Tab) 1,000 mcg QAM PO 11/20/17 09:00 12/20/17 08:59 Folic Acid (Folvite Tab) 1 mg QAM PO 11/20/17 09:00 12/20/17 08:59 Gabapentin (Neurontin Cap) 100 mg TID PO 11/19/17 14:00 12/19/17 13:59 11/19/17 13:25 100 MG Magnesium Oxide (Mag-Ox Tab) 400 mg BID PO 11/19/17 21:00 12/19/17 20:59 Oxycodone/ Acetaminophen (Percocet 5-325mg Tab) 1 tab Q6H PRN PO 11/19/17 10:15 12/03/17 10:14 11/19/17 17:36 1 TAB Ranitidine HCl (zANTac TAB) 150 mg QAM PO 11/20/17 09:00 12/20/17 08:59 Sertraline HCl (Zoloft Tab) 50 mg QAM PO 11/20/17 09:00 12/20/17 08:59 Thiamine HCl (Vitamin B-1 Tab) 50 mg QAM PO 11/20/17 09:00 12/20/17 08:59 Ferrous Sulfate (Feosol Tab) 325 mg DAILY PO 11/20/17 09:00 12/20/17 08:59 Miscellaneous (Iv Fluids Completed) 1 ea PRN PRN N/A 11/19/17 12:00 11/19/18 11:59 Lorazepam (Ativan Tab) 1 mg ONE PRN PO 11/19/17 13:00 Enteral Nutritional Formula (Boost) 1 can BIDM PO 11/19/17 17:45 12/19/17 17:44 11/19/17 17:29 1 CAN Miscellaneous (Iv Fluids Completed) 1 ea PRN PRN N/A 11/19/17 17:00 11/19/18 16:59 Review of Systems Constitutional: No fever, No chills, No sweats, No weight loss, No fatigue Eyes: No eye pain ENT: No unusual epistaxis, No nasal symptoms, No sore throat, No trouble swallowing Respiratory: No cough, No sputum, No wheezing, No shortness of breath, No dyspnea on exertion, No hemoptysis Cardiovascular: No chest pain, No edema, No palpitations Abdomen: No pain, No nausea, No vomiting, No diarrhea, No constipation, No GI bleeding Musculoskeletal: + problem reported (pain in his right foot) Genitourinary - Male: No hematuria, No dysuria Endocrine: No fatigue Hematologic / Lymphatic: No swollen lymph nodes Physical Exam Date Time Temp Pulse Resp B/P (MAP) Pulse Ox O2 Delivery O2 Flow Rate FiO2 11/19/17 15:26 36.5 72 18 111/41 (64) 96 Room Air 11/19/17 10:50 98 Room Air 11/19/17 10:50 36.5 69 18 149/76 (100) 98 Room Air 11/19/17 06:41 36.8 90 18 141/60 95 Room Air General Appearance: + thin Head: normocephalic, atraumatic Eyes: sclerae normal Respiratory/Chest: chest non-tender, lungs clear, normal breath sounds, no respiratory distress Cardiovascular: regular rate, rhythm, no edema, no murmur Abdomen/GI: normal bowel sounds, non tender, soft, no organomegaly Extremities/Musculoskelatal: no calf tenderness, + pertinent finding (left great toe and 2nd toe amputation, right great toe amputated, gangrene on right, dressing on heels c/d/i) Neurologic/Psych: alert, + pertinent finding (Oriented to person and place) Skin: warm/dry Laboratory Results Last 24 Hours Test 11/19/17 07:39 11/19/17 07:43 11/19/17 17:36 Prothrombin Time 49.7 SECONDS Prothromb Time International Ratio 4.9 Activated Partial Thromboplast Time 58.3 SECONDS Partial Thromboplastin Ratio 2.2 Sodium Level 139 mmol/L Potassium Level 3.5 mmol/L Chloride Level 106 mmol/L Carbon Dioxide Level 26 mmol/L Anion Gap 7.0 mmol/L Blood Urea Nitrogen 8 mg/dl Creatinine 1.00 mg/dl Est Creatinine Clear Calc Drug Dose 61.0 ml/min Estimated GFR () 87.4 Estimated GFR (Non- 75.4 BUN/Creatinine Ratio 8.1 Random Glucose 97 mg/dl Calcium Level 8.4 mg/dl Hemoglobin 10.2 g/dL Hematocrit 30.3 % Assessment & Plan 72 year old male with history of PVD, DVT/PE on coumadin admitted for surgery but found to have INR elevated to 4.9 Elevated PT/PTT most likely due to coumadin recommend check LFTs He has already received vitamin K 2.5 mg x 1 today recommend repeat PT/INR tomorrow If surgery is emergent FFPs can be given however the patient is not keen on receiving transfusion. Generally, his coumadin should be held 5 days prior to surgery and then rechecked on the day prior to surgery Recommend avoid alcohol as well and recommend close follow up with the anticoagulation clinic. Once the INR falls below 2, given his history of DVT/PE, would recommend bridging him with lovenox but this would need to be held 24 hrs prior to his surgery. recommend close follow up with the anticoagulation clinic for management of his anticoagulation. Anticoagulation can be resumed after surgery when adequate hemostasis has been achieved and when safe from surgery standpoint. smoking cessation advised but he is not interested in quitting recommend nutrition consult Thank you for consult
[2017-11-19] MEDS: CALCIUM 600MG + VIT D 400 IU TAB PO SCH (21:03)
[2017-11-19] MEDS: MAGNESIUM OXIDE 400 MG TAB PO SCH (21:03)
[2017-11-19] MEDS ORDERED: PIPERACILL/TAZOBAC IV 3.375 GM in DEXTROSE 5% 100ML 100 ML IV SCH (22:15)
[2017-11-19] MEDS ORDERED: PIPERACILL/TAZOBAC CONSULT ACTIVE PRN (22:15)
[2017-11-19] MEDS ORDERED: PIPERACILL/TAZOBAC IV 3.375 GM in DEXTROSE 5% 100ML IV ONE (22:30)
[2017-11-19 23:35] VITALS: BP 108/63; PULSE 75; TEMP 36.9; O2SAT 97
[2017-11-20] MEDS: PIPERACILL/TAZOBAC IV 3.375 GM in DEXTROSE 5% 100ML IV SCH ×3 (03:42→20:38)
[2017-11-20 03:45] VITALS: BP 126/62; PULSE 66; TEMP 36.6; O2SAT 97
[2017-11-20 07:18] LABS: HEMATOCRIT 27.9 % (42-52); HEMOGLOBIN 9.4 g/dL (14.0-18.0); MEAN CELL VOLUME 93.9 fL (80-100); MEAN CORPUSCULAR HEMOGLOBIN 31.6 pg (25-34); MEAN CORPUSCULAR HGB CONC 33.7 g/dl (32-36); MEAN PLATELET VOLUME 9.4 fL (7.4-10.4); PLATELET COUNT 225 K/uL (130-400); RED CELL DISTRIBUTION WIDTH CV 17.3 % (11.5-14.5); RED CELL DISTRIBUTION WIDTH SD 59.2 fL (36.4-46.3); WHITE BLOOD COUNT 7.09 K/uL (4.8-10.8)
[2017-11-20 07:27] LABS: INR 1.4 (0.9-1.1); PTT PATIENT 32.5 SECONDS (21.0-31.0)
[2017-11-20 07:39] VITALS: BP 122/69; PULSE 65; TEMP 36.6; O2SAT 98
[2017-11-20 07:47] LABS: ALBUMIN 2.1 gm/dl (3.4-5.0); CALCIUM 7.9 mg/dl (8.5-10.1); CREATININE 1.1 mg/dl (0.60-1.40); POTASSIUM 3.4 mmol/L (3.5-5.1)
[2017-11-20 07:50] LABS: TOTAL PROTEIN 5.9 gm/dl (6.4-8.2)
[2017-11-20] MEDS: BOOST VANILLA PO SCH ×2 (08:04→18:03)
[2017-11-20] MEDS: CALCIUM 600MG + VIT D 400 IU TAB PO SCH ×2 (08:05→20:38)
[2017-11-20] MEDS: GABAPENTIN 100 MG CAP PO SCH ×3 (08:05→20:38)
[2017-11-20] MEDS: MAGNESIUM OXIDE 400 MG TAB PO SCH ×2 (08:05→20:38)
[2017-11-20] MEDS: THIAMINE HCL 50 MG TAB PO SCH (08:05)
[2017-11-20] MEDS: RANITIDINE HCL 150 MG TAB PO SCH (08:05)
[2017-11-20] MEDS: SERTRALINE HCL 50 MG TAB PO SCH (08:06)
[2017-11-20] MEDS: CYANOCOBALAMIN 500 MCG TAB (VIT B-12) PO SCH (08:06)
[2017-11-20] MEDS: FERROUS SULFATE 325 MG TAB PO SCH (08:06)
[2017-11-20] MEDS ORDERED: BOOST VANILLA PO SCH (09:00)
[2017-11-20 15:25] VITALS: BP 107/55; PULSE 67; TEMP 36.3; O2SAT 98
[2017-11-20] MEDS: OXYCODONE/ACETAMINOPHEN 5-325 TAB PO PRN (16:21)
[2017-11-20 16:30] VITALS: O2SAT 98
[2017-11-20 16:50] LABS: BASO % 0.2 %; BASO ABS # 0.02 K/uL (0-0.2); EOS % 1.9 %; EOS ABS # 0.19 K/uL (0-0.5); HEMATOCRIT 27.4 % (42-52); HEMOGLOBIN 9.2 g/dL (14.0-18.0); IG# 0.03 K/uL (0.00-0.02); LYMPH % 12.3 %; MEAN CELL VOLUME 94.5 fL (80-100); MEAN CORPUSCULAR HEMOGLOBIN 31.7 pg (25-34); MEAN PLATELET VOLUME 9.7 fL (7.4-10.4); MONO % 7.8 %; MONO ABS # 0.76 K/uL (0.11-0.59); NEUT % 77.5 %; NEUT ABS # 7.55 K/uL (1.4-6.5); PLATELET COUNT 219 K/uL (130-400); RED CELL DISTRIBUTION WIDTH CV 17.5 % (11.5-14.5); WHITE BLOOD COUNT 9.75 K/uL (4.8-10.8)
[2017-11-20 16:53] LABS: MEAN CORPUSCULAR HGB CONC 33.6 g/dl (32-36)
[2017-11-20] MEDS ORDERED: HEPARIN IV BOLUS 5,000 UNIT in SYRINGE 0 ML IV SCH (17:00)
[2017-11-20 17:03] LABS: INR 1.1 (0.9-1.1); PTT PATIENT 31.5 SECONDS (21.0-31.0)
[2017-11-20] MEDS: ATORVASTATIN 40 MG TAB PO SCH (18:01)
[2017-11-20] MEDS: HEPARIN 25,000 UNIT/500ML D5W 500 ML IV PRN ×2 (18:13→22:59)
--- NOTE | 2017-11-20 19:16 | Progress Note ---
Medicine Progress Note Date & Time of Visit: Nov 20, 2017 at 15:30 . Subjective CC: Follow-up visit for multiple problems. HPI: Patient indicated that he wanted to leave the hospital today. Threatened to leave AMA (although does not have the capacity due to confusion). He was willing to stay after the importance of receiving care for his peripheral vascular disease was explained. No fever. No foot pain. ROS: General- as noted above in HPI Resp- no cough; no shortness of breath Cardiac- no chest pain, no edema GI- no nausea, no vomiting, no diarrhea - no dysuria, no difficulty voiding . 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 Laboratory Results: Last 24 Hours Test 11/20/17 06:45 11/20/17 16:20 White Blood Count 7.09 K/uL 9.75 K/uL Red Blood Count 2.97 M/uL 2.90 M/uL Hemoglobin 9.4 g/dL 9.2 g/dL Hematocrit 27.9 % 27.4 % Mean Corpuscular Volume 93.9 fL 94.5 fL Mean Corpuscular Hemoglobin 31.6 pg 31.7 pg Mean Corpuscular Hemoglobin Concent 33.7 g/dl 33.6 g/dl RDW Standard Deviation 59.2 fL 60.0 fL RDW Coefficient of Variation 17.3 % 17.5 % Platelet Count 225 K/uL 219 K/uL Mean Platelet Volume 9.4 fL 9.7 fL Prothrombin Time 14.2 SECONDS 12.0 SECONDS Prothromb Time International Ratio 1.4 1.1 Activated Partial Thromboplast Time 32.5 SECONDS 31.5 SECONDS Partial Thromboplastin Ratio 1.3 1.2 Sodium Level 135 mmol/L Potassium Level 3.4 mmol/L Chloride Level 102 mmol/L Carbon Dioxide Level 27 mmol/L Anion Gap 6.0 mmol/L Blood Urea Nitrogen 7 mg/dl Creatinine 1.10 mg/dl Est Creatinine Clear Calc Drug Dose 55.5 ml/min Estimated GFR () 77.9 Estimated GFR (Non- 67.2 BUN/Creatinine Ratio 6.6 Random Glucose 110 mg/dl Calcium Level 7.9 mg/dl Total Bilirubin 0.5 mg/dl Direct Bilirubin 0.2 mg/dl Aspartate Amino Transf (AST/SGOT) 13 U/L Alanine Aminotransferase (ALT/SGPT) 8 U/L Alkaline Phosphatase 95 U/L Total Protein 5.9 gm/dl Albumin 2.1 gm/dl Globulin 3.8 gm/dl Albumin/Globulin Ratio 0.6 Vitamin B12 Level 431 pg/mL Folate 9.72 ng/mL Neutrophils (%) (Auto) 77.5 % Lymphocytes (%) (Auto) 12.3 % Monocytes (%) (Auto) 7.8 % Eosinophils (%) (Auto) 1.9 % Basophils (%) (Auto) 0.2 % Neutrophils # (Auto) 7.55 K/uL Lymphocytes # (Auto) 1.20 K/uL Monocytes # (Auto) 0.76 K/uL Eosinophils # (Auto) 0.19 K/uL Basophils # (Auto) 0.02 K/uL Immature Granulocyte % (Auto) 0.3 % Immature Granulocyte # (Auto) 0.03 K/uL Assessment & Plan PERIPHERAL VASCULAR DISEASE Continue IV piperacillin. INR now subtherapeutic. Start IV heparin. Surgical management per Vascular Surgery. COAGULOPATHY Elevated INR- 4.9 at time of admission. Pt had been instructed to hold his warfarin, but he is confused and compliance with warfarin instructions unclear. Corrected with vitamin K. CORONARY ARTERY DISEASE No anginal symptoms HYPERTENSION Blood pressures stable. COPD Respiratory status stable. CONFUSION Patient oriented x 2. Baseline cognitive function uncertain, but suspect dementia rather than delirium. Follow. VTE PROPHYLAXIS On warfarin at time of admission with supratherapeutic INR. Received vitamin K. INR now subtherapeutic. Start IV heparin in light of severe peripheral vascular disease and gangrene of right foot. DISPOSITION To be determined. Medical follow-up with Dr. Stuart. . Current Inpatient Medications: Current Inpatient Medications Medications (Trade) Dose Ordered Sig/Nieves Route Start Time Stop Time Status Last Admin Dose Admin Acetaminophen (Tylenol Tab) 650 mg Q4H PRN PO 11/19/17 10:00 12/19/17 09:59 Polyethylene (Miralax Powder Packet) 17 gm DAILY PRN PO 11/19/17 10:00 12/19/17 09:59 Ondansetron HCl (Zofran Inj) 4 mg Q6H PRN IV 11/19/17 10:00 12/19/17 09:59 Atorvastatin Calcium (Lipitor Tab) 80 mg QDD PO 11/19/17 17:45 12/19/17 17:59 11/20/17 18:01 80 MG Calcium/Vitamin D (Caltrate Plus Tab) 1 tab BID PO 11/19/17 21:00 12/19/17 20:59 11/20/17 08:05 1 TAB Cyanocobalamin (Vitamin B-12 Tab) 1,000 mcg QAM PO 11/20/17 09:00 12/20/17 08:59 11/20/17 08:06 1,000 MCG Folic Acid (Folvite Tab) 1 mg QAM PO 11/20/17 09:00 12/20/17 08:59 11/20/17 08:06 1 MG Gabapentin (Neurontin Cap) 100 mg TID PO 11/19/17 14:00 12/19/17 13:59 11/20/17 14:11 100 MG Magnesium Oxide (Mag-Ox Tab) 400 mg BID PO 11/19/17 21:00 12/19/17 20:59 11/20/17 08:05 400 MG Oxycodone/ Acetaminophen (Percocet 5-325mg Tab) 1 tab Q6H PRN PO 11/19/17 10:15 12/03/17 10:14 11/20/17 16:21 1 TAB Ranitidine HCl (zANTac TAB) 150 mg QAM PO 11/20/17 09:00 12/20/17 08:59 11/20/17 08:05 150 MG Sertraline HCl (Zoloft Tab) 50 mg QAM PO 11/20/17 09:00 12/20/17 08:59 11/20/17 08:06 50 MG Thiamine HCl (Vitamin B-1 Tab) 50 mg QAM PO 11/20/17 09:00 12/20/17 08:59 11/20/17 08:05 50 MG Ferrous Sulfate (Feosol Tab) 325 mg DAILY PO 11/20/17 09:00 12/20/17 08:59 11/20/17 08:06 325 MG Miscellaneous (Iv Fluids Completed) 1 ea PRN PRN N/A 11/19/17 12:00 11/19/18 11:59 Lorazepam (Ativan Tab) 1 mg ONE PRN PO 11/19/17 13:00 Enteral Nutritional Formula (Boost) 1 can BIDM PO 11/19/17 17:45 12/19/17 17:44 11/20/17 18:03 1 CAN Miscellaneous Information (Consult) 1 ea UD PRN N/A 11/19/17 22:15 12/19/17 22:14 Piperacillin Sod/ Tazobactam Sod 3.375 gm/Dextrose 115 ml @ 28.75 mls/ hr Q8H IV 11/20/17 04:00 11/30/17 03:59 11/20/17 03:42 28.75 MLS/HR Heparin Sodium/ Dextrose 500 ml @ 23 mls/hr [id number] PRN IV 11/20/17 17:00 12/20/17 16:59 11/20/17 18:13 23 MLS/HR
[2017-11-20 23:33] VITALS: BP 111/66; PULSE 77; TEMP 36.9; O2SAT 94
[2017-11-21 01:14] LABS: PTT PATIENT 58.7 SECONDS (21.0-31.0)
[2017-11-21] MEDS: PIPERACILL/TAZOBAC IV 3.375 GM in DEXTROSE 5% 100ML IV SCH ×3 (03:48→19:42)
[2017-11-21 07:05] VITALS: BP 128/72; PULSE 67; TEMP 36.6; O2SAT 97
[2017-11-21 07:05] LABS: HEMATOCRIT 27.9 % (42-52); HEMOGLOBIN 9.4 g/dL (14.0-18.0); MEAN CELL VOLUME 94.6 fL (80-100); MEAN CORPUSCULAR HEMOGLOBIN 31.9 pg (25-34); MEAN CORPUSCULAR HGB CONC 33.7 g/dl (32-36); MEAN PLATELET VOLUME 9.9 fL (7.4-10.4); PLATELET COUNT 211 K/uL (130-400); RED CELL DISTRIBUTION WIDTH CV 17.4 % (11.5-14.5); RED CELL DISTRIBUTION WIDTH SD 59.8 fL (36.4-46.3); WHITE BLOOD COUNT 7.55 K/uL (4.8-10.8)
[2017-11-21] MEDS: HEPARIN 25,000 UNIT/500ML D5W 500 ML IV PRN ×4 (07:05→22:48)
[2017-11-21 07:23] LABS: PTT PATIENT 50.6 SECONDS (21.0-31.0)
[2017-11-21 07:37] LABS: CALCIUM 8.2 mg/dl (8.5-10.1); CREATININE 1.19 mg/dl (0.60-1.40); POTASSIUM 3.9 mmol/L (3.5-5.1)
[2017-11-21] MEDS: GABAPENTIN 100 MG CAP PO SCH ×3 (07:52→19:43)
[2017-11-21] MEDS: MAGNESIUM OXIDE 400 MG TAB PO SCH ×2 (07:53→19:42)
[2017-11-21] MEDS: THIAMINE HCL 50 MG TAB PO SCH (07:53)
[2017-11-21] MEDS: FERROUS SULFATE 325 MG TAB PO SCH (07:53)
[2017-11-21] MEDS: CALCIUM 600MG + VIT D 400 IU TAB PO SCH ×2 (07:53→19:42)
[2017-11-21] MEDS: RANITIDINE HCL 150 MG TAB PO SCH (07:54)
[2017-11-21] MEDS: CYANOCOBALAMIN 500 MCG TAB (VIT B-12) PO SCH (07:54)
[2017-11-21] MEDS: BOOST VANILLA PO SCH ×2 (07:56→17:39)
[2017-11-21] MEDS: SERTRALINE HCL 50 MG TAB PO SCH (07:58)
[2017-11-21 14:53] VITALS: BP 107/67; PULSE 64; TEMP 36.3; O2SAT 99
[2017-11-21] MEDS: OXYCODONE/ACETAMINOPHEN 5-325 TAB PO PRN (15:34)
[2017-11-21] MEDS: ATORVASTATIN 40 MG TAB PO SCH (17:39)
--- NOTE | 2017-11-21 20:12 | Progress Note ---
Medicine Progress Note Date & Time of Visit: Nov 21, 2017 at 15:50 . Subjective CC: Follow-up visit for multiple problems. HPI: Confused. Wants to go home. Thinks that he is being kept in an apartment against his will. No fever. No foot pain. ROS: General- as noted above in HPI Resp- no cough; no shortness of breath Cardiac- no chest pain, no edema GI- no nausea, no vomiting, no diarrhea - no difficulty voiding . 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 Laboratory Results: Last 24 Hours Test 11/21/17 00:17 11/21/17 06:43 Activated Partial Thromboplast Time 58.7 SECONDS 50.6 SECONDS Partial Thromboplastin Ratio 2.3 1.9 White Blood Count 7.55 K/uL Red Blood Count 2.95 M/uL Hemoglobin 9.4 g/dL Hematocrit 27.9 % Mean Corpuscular Volume 94.6 fL Mean Corpuscular Hemoglobin 31.9 pg Mean Corpuscular Hemoglobin Concent 33.7 g/dl RDW Standard Deviation 59.8 fL RDW Coefficient of Variation 17.4 % Platelet Count 211 K/uL Mean Platelet Volume 9.9 fL Sodium Level 136 mmol/L Potassium Level 3.9 mmol/L Chloride Level 102 mmol/L Carbon Dioxide Level 28 mmol/L Anion Gap 7.0 mmol/L Blood Urea Nitrogen 7 mg/dl Creatinine 1.19 mg/dl Est Creatinine Clear Calc Drug Dose 51.3 ml/min Estimated GFR () 70.8 Estimated GFR (Non- 61.1 BUN/Creatinine Ratio 6.1 Random Glucose 84 mg/dl Calcium Level 8.2 mg/dl Assessment & Plan PERIPHERAL VASCULAR DISEASE Receiving IV piperacillin for gangrene of right foot. Was on warfarin that was reversed; started IV heparin. Surgical management per Vascular Surgery. COAGULOPATHY Elevated INR- 4.9 at time of admission. Pt had been instructed to hold his warfarin, but he is confused and compliance with warfarin instructions unclear. Corrected with vitamin K. CORONARY ARTERY DISEASE No anginal symptoms HYPERTENSION Blood pressures stable. COPD Respiratory status stable. CONFUSION Patient oriented x 2. Baseline cognitive function uncertain, but suspect dementia rather than delirium. Follow. VTE PROPHYLAXIS On warfarin at time of admission with supratherapeutic INR. Received vitamin K. Receiving IV heparin in light of severe peripheral vascular disease and gangrene of right foot. DISPOSITION To be determined. Medical follow-up with Dr. Stuart. ADDENDUM: Daughter given update by phone this evening. She indicates baseline dementia with worsening confusion associated with illness or anesthesia. She does not know how much he drinks daily, but found several liquor bottles when she was cleaning the house. Will start alcohol withdrawal protocol. . Current Inpatient Medications: Current Inpatient Medications Medications (Trade) Dose Ordered Sig/Nieves Route Start Time Stop Time Status Last Admin Dose Admin Acetaminophen (Tylenol Tab) 650 mg Q4H PRN PO 11/19/17 10:00 12/19/17 09:59 Polyethylene (Miralax Powder Packet) 17 gm DAILY PRN PO 11/19/17 10:00 12/19/17 09:59 Ondansetron HCl (Zofran Inj) 4 mg Q6H PRN IV 11/19/17 10:00 12/19/17 09:59 Atorvastatin Calcium (Lipitor Tab) 80 mg QDD PO 11/19/17 17:45 12/19/17 17:59 11/21/17 17:39 80 MG Calcium/Vitamin D (Caltrate Plus Tab) 1 tab BID PO 11/19/17 21:00 12/19/17 20:59 11/21/17 19:42 1 TAB Cyanocobalamin (Vitamin B-12 Tab) 1,000 mcg QAM PO 11/20/17 09:00 12/20/17 08:59 11/21/17 07:54 1,000 MCG Folic Acid (Folvite Tab) 1 mg QAM PO 11/20/17 09:00 12/20/17 08:59 11/21/17 07:53 1 MG Gabapentin (Neurontin Cap) 100 mg TID PO 11/19/17 14:00 12/19/17 13:59 11/21/17 19:43 100 MG Magnesium Oxide (Mag-Ox Tab) 400 mg BID PO 11/19/17 21:00 12/19/17 20:59 11/21/17 19:42 400 MG Oxycodone/ Acetaminophen (Percocet 5-325mg Tab) 1 tab Q6H PRN PO 11/19/17 10:15 12/03/17 10:14 11/20/17 16:21 1 TAB Ranitidine HCl (zANTac TAB) 150 mg QAM PO 11/20/17 09:00 12/20/17 08:59 11/21/17 07:54 150 MG Sertraline HCl (Zoloft Tab) 50 mg QAM PO 11/20/17 09:00 12/20/17 08:59 11/21/17 07:58 50 MG Thiamine HCl (Vitamin B-1 Tab) 50 mg QAM PO 11/20/17 09:00 12/20/17 08:59 11/21/17 07:53 50 MG Ferrous Sulfate (Feosol Tab) 325 mg DAILY PO 11/20/17 09:00 12/20/17 08:59 11/21/17 07:53 325 MG Miscellaneous (Iv Fluids Completed) 1 ea PRN PRN N/A 11/19/17 12:00 11/19/18 11:59 Lorazepam (Ativan Tab) 1 mg ONE PRN PO 11/19/17 13:00 Enteral Nutritional Formula (Boost) 1 can BIDM PO 11/19/17 17:45 12/19/17 17:44 11/21/17 17:39 1 CAN Miscellaneous Information (Consult) 1 ea UD PRN N/A 11/19/17 22:15 12/19/17 22:14 Piperacillin Sod/ Tazobactam Sod 3.375 gm/Dextrose 115 ml @ 28.75 mls/ hr Q8H IV 11/20/17 04:00 11/30/17 03:59 11/21/17 19:42 28.75 MLS/HR Heparin Sodium/ Dextrose 500 ml @ 23 mls/hr [id number] PRN IV 11/20/17 17:00 3/12/18 16:59 11/21/17 17:51 23 MLS/HR
[2017-11-21] MEDS ORDERED: GABAPENTIN 800 MG TAB PO SCH (20:15)
[2017-11-21] MEDS ORDERED: LORAZEPAM 1 MG TAB PO PRN (20:15)
[2017-11-21] MEDS ORDERED: MULTI-VITAMIN INFUSION INJ 10 ML, THIAMINE HCL INJ 100 MG, FoLIC ACID INJ 1 MG in SODIU... IV ONE (20:30)
[2017-11-21] MEDS ORDERED: NURSING VERBAL MED ORDER ONE (21:45)
[2017-11-21] MEDS ORDERED: GABAPENTIN 800MG LOADING DOSE PO SCH (22:00)
[2017-11-21 22:25] VITALS: BP 129/66; PULSE 67; TEMP 36.6; O2SAT 98
[2017-11-21] MEDS ORDERED: LORAZEPAM INJ 2 MG in SYRINGE 1 ML IV STA (23:46)
[2017-11-22 03:47] VITALS: BP 121/62; PULSE 71; TEMP 36.3; O2SAT 96
[2017-11-22] MEDS: GABAPENTIN 400MG Q6H DOSE PO SCH ×2 (04:00→10:08)
[2017-11-22 06:56] LABS: PTT PATIENT 40.6 SECONDS (21.0-31.0)
[2017-11-22] MEDS: HEPARIN 25,000 UNIT/500ML D5W 500 ML IV PRN ×5 (07:15→22:49)
[2017-11-22] MEDS ORDERED: HEPARIN IV BOLUS 5,000 UNIT in SYRINGE 0 ML IV SCH (07:30)
[2017-11-22] MEDS: PIPERACILL/TAZOBAC IV 3.375 GM in DEXTROSE 5% 100ML IV SCH ×3 (08:22→23:27)
[2017-11-22] MEDS: BOOST VANILLA PO SCH ×2 (08:30→18:12)
[2017-11-22] MEDS: CALCIUM 600MG + VIT D 400 IU TAB PO SCH ×2 (10:05→20:53)
[2017-11-22] MEDS: THIAMINE HCL INJ 100 MG in SYRINGE 9 ML IV SCH (10:05)
[2017-11-22] MEDS: MAGNESIUM OXIDE 400 MG TAB PO SCH ×2 (10:06→20:53)
[2017-11-22] MEDS: FERROUS SULFATE 325 MG TAB PO SCH (10:06)
[2017-11-22] MEDS: SERTRALINE HCL 50 MG TAB PO SCH (10:07)
[2017-11-22] MEDS: RANITIDINE HCL 150 MG TAB PO SCH (10:07)
[2017-11-22] MEDS: CYANOCOBALAMIN 500 MCG TAB (VIT B-12) PO SCH (10:07)
[2017-11-22 14:31] LABS: PTT PATIENT 63.6 SECONDS (21.0-31.0)
[2017-11-22 15:49] VITALS: BP 128/66; PULSE 63; TEMP 36.7; O2SAT 98
[2017-11-22] MEDS: GABAPENTIN 400MG Q8H DOSE PO SCH (18:12)
[2017-11-22] MEDS: ATORVASTATIN 40 MG TAB PO SCH (18:13)
--- NOTE | 2017-11-22 19:31 | Progress Note ---
Medicine Progress Note Date & Time of Visit: Nov 22, 2017 at 14:30 . Subjective CC: Follow-up visit for multiple problems. HPI: Started on alcohol withdrawal protocol yesterday. Sedated today. No fever. No new problems reported by nursing. ROS: Patient unable to respond to inquiries. . 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 Laboratory Results: Last 24 Hours Test 11/22/17 05:59 11/22/17 13:44 Activated Partial Thromboplast Time 40.6 SECONDS 63.6 SECONDS Partial Thromboplastin Ratio 1.6 2.4 Assessment & Plan PERIPHERAL VASCULAR DISEASE Receiving IV piperacillin for gangrene of right foot. Was on warfarin that was reversed; started IV heparin. Surgical management per Vascular Surgery. COAGULOPATHY Elevated INR- 4.9 at time of admission. Pt had been instructed to hold his warfarin, but he is confused and compliance with warfarin instructions unclear. Corrected with vitamin K. CORONARY ARTERY DISEASE No anginal symptoms HYPERTENSION Blood pressures stable. COPD Respiratory status stable. CONFUSION Per history from daughter, apparent baseline dementia, prone to delirium. Suspected alcohol withdrawal. Follow. ALCOHOL CONSUMPTION Daily consumption of alcohol suspected (daughter found several liquor bottles in his home). Alcohol withdrawal program per protocol. VTE PROPHYLAXIS On warfarin at time of admission with supratherapeutic INR. Received vitamin K. Receiving IV heparin in light of severe peripheral vascular disease and gangrene of right foot. DISPOSITION To be determined. Medical follow-up with Dr. Stuart. . Current Inpatient Medications: Current Inpatient Medications Medications (Trade) Dose Ordered Sig/Nieves Route Start Time Stop Time Status Last Admin Dose Admin Acetaminophen (Tylenol Tab) 650 mg Q4H PRN PO 11/19/17 10:00 12/19/17 09:59 Polyethylene (Miralax Powder Packet) 17 gm DAILY PRN PO 11/19/17 10:00 12/19/17 09:59 Ondansetron HCl (Zofran Inj) 4 mg Q6H PRN IV 11/19/17 10:00 12/19/17 09:59 Atorvastatin Calcium (Lipitor Tab) 80 mg QDD PO 11/19/17 17:45 12/19/17 17:59 11/22/17 18:13 80 MG Calcium/Vitamin D (Caltrate Plus Tab) 1 tab BID PO 11/19/17 21:00 12/19/17 20:59 11/22/17 10:05 1 TAB Cyanocobalamin (Vitamin B-12 Tab) 1,000 mcg QAM PO 11/20/17 09:00 12/20/17 08:59 11/22/17 10:07 1,000 MCG Folic Acid (Folvite Tab) 1 mg QAM PO 11/20/17 09:00 12/20/17 08:59 11/22/17 10:06 1 MG Gabapentin (Neurontin Cap) 100 mg TID PO 11/19/17 14:00 12/19/17 13:59 Future Hold 11/21/17 19:43 100 MG Magnesium Oxide (Mag-Ox Tab) 400 mg BID PO 11/19/17 21:00 12/19/17 20:59 11/22/17 10:06 400 MG Oxycodone/ Acetaminophen (Percocet 5-325mg Tab) 1 tab Q6H PRN PO 11/19/17 10:15 12/03/17 10:14 11/20/17 16:21 1 TAB Ranitidine HCl (zANTac TAB) 150 mg QAM PO 11/20/17 09:00 12/20/17 08:59 11/22/17 10:07 150 MG Sertraline HCl (Zoloft Tab) 50 mg QAM PO 11/20/17 09:00 12/20/17 08:59 11/22/17 10:07 50 MG Ferrous Sulfate (Feosol Tab) 325 mg DAILY PO 11/20/17 09:00 12/20/17 08:59 11/22/17 10:06 325 MG Miscellaneous (Iv Fluids Completed) 1 ea PRN PRN N/A 11/19/17 12:00 11/19/18 11:59 Lorazepam (Ativan Tab) 1 mg ONE PRN PO 11/19/17 13:00 Enteral Nutritional Formula (Boost) 1 can BIDM PO 11/19/17 17:45 12/19/17 17:44 11/22/17 18:12 1 CAN Miscellaneous Information (Consult) 1 ea UD PRN N/A 11/19/17 22:15 12/19/17 22:14 Piperacillin Sod/ Tazobactam Sod 3.375 gm/Dextrose 115 ml @ 28.75 mls/ hr Q8H IV 11/20/17 04:00 11/30/17 03:59 11/22/17 15:41 28.75 MLS/HR Heparin Sodium/ Dextrose 500 ml @ 28 mls/hr [id number] PRN IV 11/20/17 17:00 12/20/17 16:59 11/22/17 17:16 28 MLS/HR Thiamine HCl 100 mg/Syringe 10 ml @ 2 mls/min DAILY IV 11/22/17 09:00 12/22/17 08:59 11/22/17 10:05 2 MLS/MIN Lorazepam (Ativan Tab) 1 mg ONE PRN PO 11/21/17 20:15 Gabapentin (Neurontin Cap) 400 mg Q8H PO 11/22/17 18:00 11/23/17 10:01 11/22/17 18:12 400 MG Gabapentin (Neurontin Cap) 400 mg Q12H PO 11/23/17 22:00 11/24/17 10:01 Gabapentin (Neurontin Cap) 400 mg Q24H PO 11/25/17 10:00 11/25/17 10:01 Heparin Sodium (Porcine) 5000 unit/Syringe 5 ml @ 10 mls/min TODAY@0730 IV 11/22/17 07:30 12/22/17 07:29 11/22/17 07:43 10 MLS/MIN
[2017-11-22 20:51] VITALS: BP 106/41; PULSE 69; TEMP 36.7; O2SAT 97
[2017-11-22 22:16] VITALS: BP_SYST 92; BP_SYST 98; BP_DIAS 50; BP_DIAS 56; PULSE 71; TEMP 37.3; O2SAT 98
[2017-11-23] MEDS: GABAPENTIN 400MG Q8H DOSE PO SCH ×2 (01:48→09:15)
[2017-11-23 01:52] VITALS: BP 116/50; PULSE 73; TEMP 37; O2SAT 97
[2017-11-23] MEDS: HEPARIN 25,000 UNIT/500ML D5W 500 ML IV PRN ×6 (07:09→23:10)
[2017-11-23 07:14] VITALS: BP 101/55; PULSE 76; TEMP 36.8; O2SAT 97
[2017-11-23 07:48] LABS: HEMATOCRIT 26.2 % (42-52); MEAN CELL VOLUME 93.2 fL (80-100); MEAN CORPUSCULAR HGB CONC 34.4 g/dl (32-36); MEAN PLATELET VOLUME 9.8 fL (7.4-10.4); PLATELET COUNT 228 K/uL (130-400); RED CELL DISTRIBUTION WIDTH CV 17.3 % (11.5-14.5); RED CELL DISTRIBUTION WIDTH SD 58.7 fL (36.4-46.3); WHITE BLOOD COUNT 9.65 K/uL (4.8-10.8)
[2017-11-23 08:03] LABS: PTT PATIENT 44.1 SECONDS (21.0-31.0)
[2017-11-23 08:29] LABS: CALCIUM 8.2 mg/dl (8.5-10.1); CREATININE 1.28 mg/dl (0.60-1.40); POTASSIUM 3.9 mmol/L (3.5-5.1)
[2017-11-23] MEDS: CALCIUM 600MG + VIT D 400 IU TAB PO SCH ×2 (09:14→20:42)
[2017-11-23] MEDS: SERTRALINE HCL 50 MG TAB PO SCH (09:15)
[2017-11-23] MEDS: MAGNESIUM OXIDE 400 MG TAB PO SCH ×2 (09:15→20:42)
[2017-11-23] MEDS: CYANOCOBALAMIN 500 MCG TAB (VIT B-12) PO SCH (09:15)
[2017-11-23] MEDS: FERROUS SULFATE 325 MG TAB PO SCH (09:15)
[2017-11-23] MEDS: RANITIDINE HCL 150 MG TAB PO SCH (09:15)
[2017-11-23] MEDS: THIAMINE HCL INJ 100 MG in SYRINGE 9 ML IV SCH (09:16)
[2017-11-23] MEDS: PIPERACILL/TAZOBAC IV 3.375 GM in DEXTROSE 5% 100ML IV SCH ×2 (09:21→15:55)
[2017-11-23] MEDS: BOOST VANILLA PO SCH ×2 (09:23→18:16)
[2017-11-23] MEDS ORDERED: HEPARIN IV BOLUS 3,000 UNIT in SYRINGE 0 ML IV ONE (09:45)
--- NOTE | 2017-11-23 15:09 | Progress Note ---
Progress Note Date of Service Nov 23, 2017. Progress Note Pt scheduled for RLE fem-distal bypass tomorrow in OR by Dr Hussein. Pt agreeable. Discussed with daughter, Conchita, as well.
[2017-11-23 15:21] VITALS: BP 119/61; PULSE 72; TEMP 36.3; O2SAT 99
[2017-11-23 15:35] VITALS: O2SAT 99
[2017-11-23 17:04] LABS: PTT PATIENT 76.2 SECONDS (21.0-31.0)
[2017-11-23] MEDS: ATORVASTATIN 40 MG TAB PO SCH (18:17)
--- NOTE | 2017-11-23 20:23 | Progress Note ---
Medicine Progress Note Date & Time of Visit: Nov 23, 2017 at 20:10. Subjective Pt was seen and examined Lying in bed with no distress watching TV Pt said that he is no having any hallucination he said that he is a light alcohol drinker and drink few times a week. 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 site Neuro- alert, oriented x 3; PERRL, EOMI; no facial palsy Skin- warm & dry Laboratory Results: Last 24 Hours Test 11/23/17 07:27 11/23/17 16:02 White Blood Count 9.65 K/uL Red Blood Count 2.81 M/uL Hemoglobin 9.0 g/dL Hematocrit 26.2 % Mean Corpuscular Volume 93.2 fL Mean Corpuscular Hemoglobin 32.0 pg Mean Corpuscular Hemoglobin Concent 34.4 g/dl RDW Standard Deviation 58.7 fL RDW Coefficient of Variation 17.3 % Platelet Count 228 K/uL Mean Platelet Volume 9.8 fL Activated Partial Thromboplast Time 44.1 SECONDS 76.2 SECONDS Partial Thromboplastin Ratio 1.7 2.9 Sodium Level 132 mmol/L Potassium Level 3.9 mmol/L Chloride Level 101 mmol/L Carbon Dioxide Level 25 mmol/L Anion Gap 7.0 mmol/L Blood Urea Nitrogen 8 mg/dl Creatinine 1.28 mg/dl Est Creatinine Clear Calc Drug Dose 47.7 ml/min Estimated GFR () 64.8 Estimated GFR (Non- 55.9 BUN/Creatinine Ratio 5.9 Random Glucose 99 mg/dl Calcium Level 8.2 mg/dl Assessment & Plan PERIPHERAL VASCULAR DISEASE Continue IV piperacillin for gangrene of right foot. Coumadin was discontinue due to upcoming procedure On IV heparin for now Schedule for vascular procedure tomorrow. NPO after midnight SUPRATHERAPEUTIC INR Elevated INR 4.9 on admission. Received Vit K INR 1.7 today Consider additional dose of VIT in am if INR above 1.5 since pt going for vascular procedure tomorrow. CORONARY ARTERY DISEASE No anginal symptoms HYPERTENSION Blood pressures stable. COPD Respiratory status stable. CONFUSION Back to baseline ALCOHOL CONSUMPTION No signs of alcohol withdrawn. Continue gabapentin for alcohol withdrawn protocol VTE PROPHYLAXIS On IV heparin DISPOSITION Plan for vascular surgery in am Will need placement Current Inpatient Medications: Current Inpatient Medications Medications (Trade) Dose Ordered Sig/Nieves Route Start Time Stop Time Status Last Admin Dose Admin Acetaminophen (Tylenol Tab) 650 mg Q4H PRN PO 11/19/17 10:00 12/19/17 09:59 11/23/17 04:55 650 MG Polyethylene (Miralax Powder Packet) 17 gm DAILY PRN PO 11/19/17 10:00 12/19/17 09:59 Ondansetron HCl (Zofran Inj) 4 mg Q6H PRN IV 11/19/17 10:00 12/19/17 09:59 Atorvastatin Calcium (Lipitor Tab) 80 mg QDD PO 11/19/17 17:45 12/19/17 17:59 11/23/17 18:17 80 MG Calcium/Vitamin D (Caltrate Plus Tab) 1 tab BID PO 11/19/17 21:00 12/19/17 20:59 11/23/17 09:14 1 TAB Cyanocobalamin (Vitamin B-12 Tab) 1,000 mcg QAM PO 11/20/17 09:00 12/20/17 08:59 11/23/17 09:15 1,000 MCG Folic Acid (Folvite Tab) 1 mg QAM PO 11/20/17 09:00 12/20/17 08:59 11/23/17 09:15 1 MG Gabapentin (Neurontin Cap) 100 mg TID PO 11/19/17 14:00 12/19/17 13:59 Future Hold 11/21/17 19:43 100 MG Magnesium Oxide (Mag-Ox Tab) 400 mg BID PO 11/19/17 21:00 12/19/17 20:59 11/23/17 09:15 400 MG Oxycodone/ Acetaminophen (Percocet 5-325mg Tab) 1 tab Q6H PRN PO 11/19/17 10:15 12/03/17 10:14 11/20/17 16:21 1 TAB Ranitidine HCl (zANTac TAB) 150 mg QAM PO 11/20/17 09:00 12/20/17 08:59 11/23/17 09:15 150 MG Sertraline HCl (Zoloft Tab) 50 mg QAM PO 11/20/17 09:00 12/20/17 08:59 11/23/17 09:15 50 MG Ferrous Sulfate (Feosol Tab) 325 mg DAILY PO 11/20/17 09:00 12/20/17 08:59 11/23/17 09:15 325 MG Miscellaneous (Iv Fluids Completed) 1 ea PRN PRN N/A 11/19/17 12:00 11/19/18 11:59 Lorazepam (Ativan Tab) 1 mg ONE PRN PO 11/19/17 13:00 Enteral Nutritional Formula (Boost) 1 can BIDM PO 11/19/17 17:45 12/19/17 17:44 11/23/17 18:16 1 CAN Miscellaneous Information (Consult) 1 ea UD PRN N/A 11/19/17 22:15 12/19/17 22:14 Piperacillin Sod/ Tazobactam Sod 3.375 gm/Dextrose 115 ml @ 28.75 mls/ hr Q8H IV 11/20/17 04:00 11/30/17 03:59 11/23/17 15:55 28.75 MLS/HR Heparin Sodium/ Dextrose 500 ml @ 28 mls/hr [id number] PRN IV 11/20/17 17:00 12/20/17 16:59 11/23/17 17:17 31 MLS/HR Thiamine HCl 100 mg/Syringe 10 ml @ 2 mls/min DAILY IV 11/22/17 09:00 12/22/17 08:59 11/23/17 09:16 2 MLS/MIN Lorazepam (Ativan Tab) 1 mg ONE PRN PO 11/21/17 20:15 Gabapentin (Neurontin Cap) 400 mg Q12H PO 11/23/17 22:00 11/24/17 10:01 Gabapentin (Neurontin Cap) 400 mg Q24H PO 11/25/17 10:00 11/25/17 10:01
[2017-11-23] MEDS: GABAPENTIN 400MG Q12H DOSE PO SCH (20:43)
[2017-11-23 23:05] VITALS: BP 110/62; PULSE 77; TEMP 36.9; O2SAT 97
[2017-11-23 23:41] LABS: PTT PATIENT 53.6 SECONDS (21.0-31.0)
[2017-11-24] VITALS (16 sets, daily range): BP systolic 89–119; BP diastolic 45–72; PULSE 70–111; TEMP 36.5–36.8; O2SAT 94–100
[2017-11-24] MEDS: PIPERACILL/TAZOBAC IV 3.375 GM in DEXTROSE 5% 100ML IV SCH ×4 (00:09→23:08)
[2017-11-24] MEDS: HEPARIN 25,000 UNIT/500ML D5W 500 ML IV PRN ×2 (05:58→10:23)
[2017-11-24] MEDS: BOOST VANILLA PO SCH ×2 (07:55→17:45)
[2017-11-24] MEDS: CYANOCOBALAMIN 500 MCG TAB (VIT B-12) PO SCH (07:56)
[2017-11-24] MEDS: RANITIDINE HCL 150 MG TAB PO SCH (07:56)
[2017-11-24] MEDS: FERROUS SULFATE 325 MG TAB PO SCH (07:56)
[2017-11-24] MEDS: THIAMINE HCL INJ 100 MG in SYRINGE 9 ML IV SCH (07:56)
[2017-11-24] MEDS: MAGNESIUM OXIDE 400 MG TAB PO SCH ×2 (07:56→23:07)
[2017-11-24] MEDS: CALCIUM 600MG + VIT D 400 IU TAB PO SCH ×2 (07:56→23:07)
[2017-11-24] MEDS: SERTRALINE HCL 50 MG TAB PO SCH (07:57)
[2017-11-24] MEDS ORDERED: MIDAZOLAM HCL 1 MG/ML 2ML VIAL ONE ×2 (08:52→13:10)
[2017-11-24] MEDS ORDERED: FENTANYL CITRATE INJ 50 MCG/1 ML 2 ML VIAL ONE ×4 (08:52→19:59)
[2017-11-24] MEDS ORDERED: LIDOCAINE HCL 2% 2 ML VIAL (20MG/ML) ONE ×2 (08:52→12:19)
[2017-11-24] MEDS ORDERED: ONDANSETRON INJ 2 MG/ML 2 ML VIAL ONE ×2 (08:52→12:19)
[2017-11-24] MEDS ORDERED: ROCURONIUM BROMIDE 10 MG/ML 5 ML VIAL IV ONE ×3 (08:52→16:50)
[2017-11-24] MEDS ORDERED: DEXAMETHASONE SOD INJ 4 MG/ML VIAL ONE ×2 (08:52→17:07)
[2017-11-24] MEDS ORDERED: PROPOFOL IV EMULSION 10 MG/ML 20 ML VIAL IV ONE ×3 (08:52→17:07)
[2017-11-24 09:08] LABS: HEMATOCRIT 29.1 % (42-52); MEAN CELL VOLUME 92.7 fL (80-100); MEAN CORPUSCULAR HEMOGLOBIN 31.8 pg (25-34); MEAN CORPUSCULAR HGB CONC 34.4 g/dl (32-36); MEAN PLATELET VOLUME 10.2 fL (7.4-10.4); PLATELET COUNT 256 K/uL (130-400); RED CELL DISTRIBUTION WIDTH CV 17.3 % (11.5-14.5); WHITE BLOOD COUNT 10.16 K/uL (4.8-10.8)
[2017-11-24 09:18] LABS: PTT PATIENT 33.7 SECONDS (21.0-31.0)
[2017-11-24 09:34] LABS: CREATININE 1.16 mg/dl (0.60-1.40); POTASSIUM 4.3 mmol/L (3.5-5.1)
[2017-11-24] MEDS ORDERED: HEPARIN IV BOLUS 5,000 UNIT in SYRINGE 0 ML IV ONE (10:00)
[2017-11-24] MEDS: GABAPENTIN 400MG Q12H DOSE PO SCH (10:23)
--- NOTE | 2017-11-24 11:23 | Progress Note ---
Progress Note Date of Service Nov 24, 2017. Progress Note Patient for right femoral peroneal bypass today. I have discussed the risks options and benefits of the procedure with the patient and family. The patient and family understand the risks options and benefits and agrees to the procedure. I have examined the patient, reviewed the History & Physical and in the interval since the performance of the History & Physical I have noted the following changes of clinical significance: No changes noted
[2017-11-24] MEDS ORDERED: GELATIN SPONGE SZ 100 ONE (12:10)
[2017-11-24] MEDS ORDERED: THROMBIN 5000 UNITS KIT ONE (12:11)
[2017-11-24] MEDS ORDERED: LIDOCAINE HCL 1% 20 ML VIAL ONE (12:11)
[2017-11-24] MEDS ORDERED: IODIXANOL (VISIPAQUE) 270 MG/ML 50ML ONE (12:11)
[2017-11-24] MEDS ORDERED: BUPIVACAINE/EPINEPHRINE 0.5% MPF 1:200,000 30 ML VIAL ONE (12:11)
[2017-11-24] MEDS ORDERED: HEPARIN SOD (PORCINE) 1000 UNIT/ML 10 ML VIAL ONE ×2 (12:12→12:22)
[2017-11-24] MEDS ORDERED: PAPAVERINE HCL INJ 30 MG/ML 2 ML VIAL ONE (12:12)
[2017-11-24] MEDS ORDERED: CEFAZOLIN SOD 1 GM VIAL ONE (12:12)
[2017-11-24] MEDS ORDERED: PHENYLEPHRINE 100MCG/ML 5ML SYR IV PRN (12:30)
[2017-11-24] MEDS ORDERED: LABETALOL HCL IV 5 MG/ML 20ML IV PRN (12:30)
[2017-11-24] MEDS ORDERED: ATROPINE SULFATE 0.1 MG/ML 5ML SYR IV PRN (12:30)
[2017-11-24] MEDS ORDERED: HYDROmorphone INJ 1 MG/ML SYR IV PRN (12:30)
[2017-11-24] MEDS ORDERED: EpHEDrine SULFATE INJ 50 MG/ML AMP IV PRN (12:30)
[2017-11-24] MEDS ORDERED: FENTANYL CITRATE INJ 50 MCG/1 ML 2 ML VIAL IV PRN (12:30)
[2017-11-24] MEDS ORDERED: ONDANSETRON INJ 2 MG/ML 2 ML VIAL IV PRN ×2 (12:30→18:30)
[2017-11-24] MEDS ORDERED: ETOMIDATE 2 MG/ML 20 ML VIAL IV ONE (13:22)
[2017-11-24] MEDS ORDERED: EpHEDrine SULFATE INJ 50 MG/ML AMP ONE (14:45)
--- NOTE | 2017-11-24 17:43 | Progress Note ---
Medicine Progress Note Date & Time of Visit: Nov 24, 2017 at 11:38. Subjective Pt was seen and examined Lying in bed with no distress Pt plans to go to surgery this morning for toes gangrene Denies any chest pain, palpitation, dizziness and SOB Objective Physical Exam: General- No acute distress Head- atraumatic Eyes- PERRL, EOMI ENT- oropharynx clear Neck- supple, no JVD Lungs- No wheezing Heart- regular rhythm Abdomen- normal bowel sounds, soft Extremities- no calf tenderness, s/p amputation right great toe with gangrene at amputation site Neuro- alert, oriented x 3; PERRL, EOMI; no facial palsy Skin- warm & dry Laboratory Results: Last 24 Hours Test 11/23/17 23:03 11/24/17 08:08 Activated Partial Thromboplast Time 53.6 SECONDS 33.7 SECONDS Partial Thromboplastin Ratio 2.1 1.3 White Blood Count 10.16 K/uL Red Blood Count 3.14 M/uL Hemoglobin 10.0 g/dL Hematocrit 29.1 % Mean Corpuscular Volume 92.7 fL Mean Corpuscular Hemoglobin 31.8 pg Mean Corpuscular Hemoglobin Concent 34.4 g/dl RDW Standard Deviation 58.0 fL RDW Coefficient of Variation 17.3 % Platelet Count 256 K/uL Mean Platelet Volume 10.2 fL Prothrombin Time 10.1 SECONDS Prothromb Time International Ratio 1.0 Sodium Level 131 mmol/L Potassium Level 4.3 mmol/L Chloride Level 98 mmol/L Carbon Dioxide Level 24 mmol/L Anion Gap 9.0 mmol/L Blood Urea Nitrogen 5 mg/dl Creatinine 1.16 mg/dl Est Creatinine Clear Calc Drug Dose 52.6 ml/min Estimated GFR () 73.0 Estimated GFR (Non- 63.0 BUN/Creatinine Ratio 4.1 Random Glucose 81 mg/dl Calcium Level 9.0 mg/dl Assessment & Plan PERIPHERAL VASCULAR DISEASE Continue IV piperacillin for gangrene of right foot. Coumadin was discontinued due to upcoming procedure On IV heparin for now Schedule for vascular procedure of right 2nd toe gangrene amputation Keep NPO INR 1.3 Medically stable to proceed with the procedure SUPRATHERAPEUTIC INR Elevated INR 4.9 on admission. Received Vit K INR 1.3 today CORONARY ARTERY DISEASE No anginal symptoms HYPERTENSION Blood pressures stable. COPD Respiratory status stable. CONFUSION Back to baseline ALCOHOL CONSUMPTION No signs of alcohol withdrawn. Continue gabapentin for alcohol withdrawn protocol VTE PROPHYLAXIS On IV heparin DISPOSITION Plan for vascular surgery this morning Will need placement Current Inpatient Medications: Current Inpatient Medications Medications (Trade) Dose Ordered Sig/Nieves Route Start Time Stop Time Status Last Admin Dose Admin Acetaminophen (Tylenol Tab) 650 mg Q4H PRN PO 11/19/17 10:00 12/19/17 09:59 11/23/17 04:55 650 MG Polyethylene (Miralax Powder Packet) 17 gm DAILY PRN PO 11/19/17 10:00 12/19/17 09:59 Ondansetron HCl (Zofran Inj) 4 mg Q6H PRN IV 11/19/17 10:00 12/19/17 09:59 Atorvastatin Calcium (Lipitor Tab) 80 mg QDD PO 11/19/17 17:45 12/19/17 17:59 11/23/17 18:17 80 MG Calcium/Vitamin D (Caltrate Plus Tab) 1 tab BID PO 11/19/17 21:00 12/19/17 20:59 11/24/17 07:56 1 TAB Cyanocobalamin (Vitamin B-12 Tab) 1,000 mcg QAM PO 11/20/17 09:00 12/20/17 08:59 11/24/17 07:56 1,000 MCG Folic Acid (Folvite Tab) 1 mg QAM PO 11/20/17 09:00 12/20/17 08:59 11/24/17 07:57 1 MG Gabapentin (Neurontin Cap) 100 mg TID PO 11/19/17 14:00 12/19/17 13:59 Future Hold 11/21/17 19:43 100 MG Magnesium Oxide (Mag-Ox Tab) 400 mg BID PO 11/19/17 21:00 12/19/17 20:59 11/24/17 07:56 400 MG Oxycodone/ Acetaminophen (Percocet 5-325mg Tab) 1 tab Q6H PRN PO 11/19/17 10:15 12/03/17 10:14 11/20/17 16:21 1 TAB Ranitidine HCl (zANTac TAB) 150 mg QAM PO 11/20/17 09:00 12/20/17 08:59 11/24/17 07:56 150 MG Sertraline HCl (Zoloft Tab) 50 mg QAM PO 11/20/17 09:00 12/20/17 08:59 11/24/17 07:57 50 MG Ferrous Sulfate (Feosol Tab) 325 mg DAILY PO 11/20/17 09:00 12/20/17 08:59 11/24/17 07:56 325 MG Miscellaneous (Iv Fluids Completed) 1 ea PRN PRN N/A 11/19/17 12:00 11/19/18 11:59 Lorazepam (Ativan Tab) 1 mg ONE PRN PO 11/19/17 13:00 Enteral Nutritional Formula (Boost) 1 can BIDM PO 11/19/17 17:45 12/19/17 17:44 11/23/17 18:16 1 CAN Miscellaneous Information (Consult) 1 ea UD PRN N/A 11/19/17 22:15 12/19/17 22:14 Piperacillin Sod/ Tazobactam Sod 3.375 gm/Dextrose 115 ml @ 28.75 mls/ hr Q8H IV 11/20/17 04:00 11/30/17 03:59 11/24/17 07:55 28.75 MLS/HR Heparin Sodium/ Dextrose 500 ml @ 33 mls/hr [id number] PRN IV 11/20/17 17:00 12/20/17 16:59 11/24/17 10:23 33 MLS/HR Thiamine HCl 100 mg/Syringe 10 ml @ 2 mls/min DAILY IV 11/22/17 09:00 12/22/17 08:59 11/24/17 07:56 2 MLS/MIN Lorazepam (Ativan Tab) 1 mg ONE PRN PO 11/21/17 20:15 Gabapentin (Neurontin Cap) 400 mg Q24H PO 11/25/17 10:00 11/25/17 10:01
[2017-11-24] MEDS: ATORVASTATIN 40 MG TAB PO SCH (17:45)
[2017-11-24] MEDS ORDERED: D5W AND 1/2NSS 1,000 ML IV SCH (18:28)
--- NOTE | 2017-11-24 18:28 | [facility] Post Operative Brief Note ---
Immediate Operative Summary Operative Date Nov 24, 2017. Pre-Operative Diagnosis Right lower extremity severe peripheral artery disease with gangrene of the great toe amputation site Post-Operative Diagnosis Right lower extremity arterial occlusive disease with gangrene of great toe amputation site Procedure(s) Performed Right superficial femoral endarterectomy with bovine patch graft, Right femoral to peroneal instu bypass graft Surgeon Dr Hussein Electric Crane Operator Surgeon(s) Dr Marquis Watts FELLOW Estimated Blood Loss 200 Findings Consistent with Post-Op Diagnosis Specimens none per surgeon Drains None Anesthesia Type General Complication(s) none Disposition Accompanied Pt To Recover: no Disposition: Recovery Room / PACU
[2017-11-24] MEDS ORDERED: MoRPHine SULFATE 2 MG/ML CARP IV PRN (18:30)
[2017-11-24] MEDS ORDERED: PHENYLEPHRINE HCL INJ 10 MG/ML VIAL ONE (19:08)
[2017-11-24] MEDS ORDERED: GLYCOPYRROLATE INJ 0.2 MG/ML VIAL ONE (19:09)
[2017-11-24] MEDS ORDERED: NEOSTIGMINE METHYLSULFATE 5 MG/5 ML SYR ONE (19:09)
[2017-11-24] MEDS ORDERED: MoRPHine SULFATE 4 MG/ML 1 ML CARP\\VIAL IV PRN (19:45)
[2017-11-24 20:05] LABS: HEMATOCRIT 25.4 % (42-52); HEMOGLOBIN 8.7 g/dL (14.0-18.0); MEAN CELL VOLUME 91.7 fL (80-100); MEAN CORPUSCULAR HEMOGLOBIN 31.4 pg (25-34); MEAN PLATELET VOLUME 9.4 fL (7.4-10.4); PLATELET COUNT 242 K/uL (130-400); RED CELL DISTRIBUTION WIDTH SD 56.8 fL (36.4-46.3); WHITE BLOOD COUNT 14.22 K/uL (4.8-10.8)
[2017-11-24 20:09] LABS: MEAN CORPUSCULAR HGB CONC 34.3 g/dl (32-36)
--- NOTE | 2017-11-24 20:10 | Anesthesiology Progress Note ---
Anesthesia Post Op Note Date & Time Nov 24, 2017 at 20:09 Vital Signs Pain Intensity: 2 Vital Signs Past 12 Hours Date Time Temp Pulse Resp B/P (MAP) Pulse Ox O2 Delivery O2 Flow Rate FiO2 11/24/17 20:00 82 13 108/61 100 Nasal Cannula 2 11/24/17 19:50 87 14 95/57 (67) 99 Nasal Cannula 2 11/24/17 19:40 92 15 109/61 100 Oxymask 10 11/24/17 19:33 36.6 90 12 109/67 100 Oxymask 10 Notes Mental Status: alert / awake / arousable, participated in evaluation Pt Amnestic to Procedure: Yes Nausea / Vomiting: adequately controlled Pain: adequately controlled Airway Patency, RR, SpO2: stable & adequate BP & HR: stable & adequate Hydration State: stable & adequate Anesthetic Complications: no major complications apparent The patient is doing well. He is awake and his vitals are stable. Postop hgb is 8.7 down from preop of 9. I spoke to Ginger Champion from the ICU who will follow the patient in the ICU.
[2017-11-24 20:26] LABS: BASO % 0.1 %; BASO ABS # 0.01 K/uL (0-0.2); EOS % 0.1 %; EOS ABS # 0.01 K/uL (0-0.5); IG# 0.04 K/uL (0.00-0.02); LYMPH % 3.2 %; LYMPH ABS # 0.46 K/uL (1.2-3.4); MONO % 1.9 %; MONO ABS # 0.27 K/uL (0.11-0.59); NEUT % 94.4 %; NEUT ABS # 13.43 K/uL (1.4-6.5)
[2017-11-24 20:40] LABS: CALCIUM 8.1 mg/dl (8.5-10.1); CREATININE 1.19 mg/dl (0.60-1.40); POTASSIUM 4.3 mmol/L (3.5-5.1)
--- NOTE | 2017-11-24 21:31 | Critical Care Consultation ---
Critical Care Consultation Date of Consultation: Nov 24, 2017. Attending Physician: Raysa Jain M.D. Reason for Consultation: Post operative Observation and Management History of Present Illness Sven Doty is a 72 yo male with significant PAD leading to a Right superficial femoral endarterectomy with bovine patch angioplasty, right femoral to peroneal in situ bypass, completion angiogram of the right lower extremity by Dr. Hussein. Spoke with Dr. Hussein as well as Dr. Correa after the OR case. Pt tolerated surgery well. SBP did drop into the low 100s for a short while requiring Phenylephedrine. Pt has history of L fem peroneal bypass as well as multiple toe amputations. Pt is whifty in the unit as he is coming out os anesthesia. I am not sure what his baseline mental status is. He does answer questions correctly and appropriately when redirected. PMHx HTN, hyperlipidemia, CAD s/p CABG and cardiac stenting, COPD, hx ETOH abuse , dementia, tobacco abuse, chronic malnutrition, hx DVT/PE on Coumadin, PAD The patient denies fever, dizziness, headache, muscle weakness, numbness, change in vision, sore throat, chest pain, palpitations, awareness of tachyarrhythmias, leg swelling, shortness of breath, cough, nausea, vomiting, bloody stools, diarrhea, constipation, abdominal pain, other changes in urine or bowel habits. His only complaint was for a Coke to drink; which pt was given. Past Medical/Surgical History Medical Problems: Alcohol use disorder CAD (coronary artery disease) s/p CABG Closed fracture of proximal end of left humerus COPD (chronic obstructive pulmonary disease) Depression Dementia DVT (deep venous thrombosis) Hypercholesteremia Hypertension Malnutrition [place] (myocardial infarction) PE (pulmonary embolism) Peripheral neuropathy Tobacco Abuse Warfarin anticoagulation Surgical Problems: H/o neuroma removed from foot History of carpal tunnel surgery Hx of CABG S/P coronary artery stent placement Family History Coronary artery disease in mother Diabetes mellitus Social History Smoking Status: Current Every Day Smoker (smokes 1-5 cigarettes daily) Smokeless Tobacco Use: No Alcohol Use: occasionally (pt states drinks liquor a couple of times a week, reports didn't drink past 2 days) Drug Use: none Housing Status: lives alone Allergies Coded Allergies: No Known Allergies (Unverified , 11/19/17) Home Medications Scheduled Amoxicillin & Pot Clavulanate (Amoxicillin/Clavulanate P), 875 PO BID Atorvastatin (Lipitor), 80 MG PO QDD Calcium/Vitamin D (Os-[place] 500 Plus D), 1 TAB PO BID Cyanocobalamin (Vitamin B-12), 1,000 MCG PO QAM Ferrous Sulfate (Kp Ferrous Sulfate), 1 TAB PO DAILY Folic Acid (Folvite), 1 MG PO QAM Gabapentin (Neurontin), 100 MG PO TID Magnesium Oxide (Mag-Ox), 400 MG PO BID Nutritional Supplements (Boost), 1 CAN PO BID Ranitidine (Zantac), 150 MG PO QAM Senna/Docusate Sod (Senokot S), 1 TAB PO QDL Sertraline (Zoloft), 50 MG PO QAM Thiamine Hcl (Vitamin B-1), 50 MG PO QAM Warfarin Sod (Jantoven), Unknown Dose PO UD Scheduled PRN Acetaminophen (Tylenol), 650 MG PO Q6 PRN for Pain or Fever Oxycodone/Acetaminophen 5MG/325MG (Percocet 5MG/325MG), 1 TABLET PO Q6 PRN for Pain Current Inpatient Medications Current Inpatient Medications Medications (Trade) Dose Ordered Sig/Nieves Route Start Time Stop Time Status Last Admin Dose Admin Acetaminophen (Tylenol Tab) 650 mg Q4H PRN PO 11/19/17 10:00 12/19/17 09:59 11/23/17 04:55 650 MG Polyethylene (Miralax Powder Packet) 17 gm DAILY PRN PO 11/19/17 10:00 12/19/17 09:59 Ondansetron HCl (Zofran Inj) 4 mg Q6H PRN IV 11/19/17 10:00 12/19/17 09:59 Atorvastatin Calcium (Lipitor Tab) 80 mg QDD PO 11/19/17 17:45 12/19/17 17:59 11/23/17 18:17 80 MG Calcium/Vitamin D (Caltrate Plus Tab) 1 tab BID PO 11/19/17 21:00 12/19/17 20:59 11/24/17 07:56 1 TAB Cyanocobalamin (Vitamin B-12 Tab) 1,000 mcg QAM PO 11/20/17 09:00 12/20/17 08:59 11/24/17 07:56 1,000 MCG Folic Acid (Folvite Tab) 1 mg QAM PO 11/20/17 09:00 12/20/17 08:59 11/24/17 07:57 1 MG Gabapentin (Neurontin Cap) 100 mg TID PO 11/19/17 14:00 12/19/17 13:59 Future Hold 11/21/17 19:43 100 MG Magnesium Oxide (Mag-Ox Tab) 400 mg BID PO 11/19/17 21:00 12/19/17 20:59 11/24/17 07:56 400 MG Oxycodone/ Acetaminophen (Percocet 5-325mg Tab) 1 tab Q6H PRN PO 11/19/17 10:15 12/03/17 10:14 11/20/17 16:21 1 TAB Ranitidine HCl (zANTac TAB) 150 mg QAM PO 11/20/17 09:00 12/20/17 08:59 11/24/17 07:56 150 MG Sertraline HCl (Zoloft Tab) 50 mg QAM PO 11/20/17 09:00 12/20/17 08:59 11/24/17 07:57 50 MG Ferrous Sulfate (Feosol Tab) 325 mg DAILY PO 11/20/17 09:00 12/20/17 08:59 11/24/17 07:56 325 MG Miscellaneous (Iv Fluids Completed) 1 ea PRN PRN N/A 11/19/17 12:00 11/19/18 11:59 Lorazepam (Ativan Tab) 1 mg ONE PRN PO 11/19/17 13:00 Enteral Nutritional Formula (Boost) 1 can BIDM PO 11/19/17 17:45 12/19/17 17:44 11/23/17 18:16 1 CAN Miscellaneous Information (Consult) 1 ea UD PRN N/A 11/19/17 22:15 12/19/17 22:14 Piperacillin Sod/ Tazobactam Sod 3.375 gm/Dextrose 115 ml @ 28.75 mls/ hr Q8H IV 11/20/17 04:00 11/30/17 03:59 11/24/17 07:55 28.75 MLS/HR Thiamine HCl 100 mg/Syringe 10 ml @ 2 mls/min DAILY IV 11/22/17 09:00 12/22/17 08:59 11/24/17 07:56 2 MLS/MIN Lorazepam (Ativan Tab) 1 mg ONE PRN PO 11/21/17 20:15 Gabapentin (Neurontin Cap) 400 mg Q24H PO 11/25/17 10:00 11/25/17 10:01 Morphine Sulfate (MoRPHine SULFATE INJ) If PO analgesic is orde... Q2H PRN IV 11/24/17 18:30 12/08/17 18:29 Ondansetron HCl (Zofran Inj) 4 mg Q6H PRN IV 11/24/17 18:30 12/24/17 18:29 Dextrose/Sodium Chloride 1,000 ml @ 125 mls/hr Q8H IV 11/24/17 18:28 11/25/17 02:27 Enoxaparin Sodium (Lovenox Inj) 40 mg Q12H SQ 11/25/17 08:00 12/25/17 07:59 Morphine Sulfate (MoRPHine SULFATE INJ) If PO analgesic is orde... Q2H PRN IV 11/24/17 19:45 12/08/17 19:44 Review of Systems 12 systems reviewed and negative other than previously mentioned in the HPI. Physical Exam Date Time Temp Pulse Resp B/P (MAP) Pulse Ox O2 Delivery O2 Flow Rate FiO2 11/24/17 21:18 Nasal Cannula 2.0 11/24/17 20:10 36.6 82 14 103/59 100 Nasal Cannula 2 11/24/17 20:00 82 13 108/61 100 Nasal Cannula 2 11/24/17 19:50 87 14 95/57 (67) 99 Nasal Cannula 2 11/24/17 19:40 92 15 109/61 100 Oxymask 10 11/24/17 19:33 36.6 90 12 109/67 100 Oxymask 10 11/24/17 08:00 Room Air 11/24/17 07:04 36.5 70 16 108/50 (69) 94 Room Air 11/24/17 00:45 Room Air 11/23/17 23:05 36.9 77 18 110/62 (78) 97 Room Air Vital Signs - as noted Laboratory Data - as noted Physical Exam: General - NAD Eyes - PERRL, EOMI No icterus, gaze conjugate ENT - Mucosa moist, no lesions or candidiasis Neck - Supple, trachea midline, no masses or lymphadenopathy, no JVD or bruits Lungs - No paradoxical chest wall movement, clear to auscultation bilaterally, no wheezes, rales, or rhonchi Heart - Reg rate and rhythm, No murmur, rubs, clicks, or gallops appreciated Abdomen - normoactive BS present, no bruits noted, tympanic to percussion, soft , nontender, nondistended, no organomegaly Extremities - No edema, pedal pulses intact, Right lower extremity dressings dry and intact, missing digits on bilaterally feet, gangrenous appearances. Neuro - Alert and appropriate with redirection Strength extremities equal and appropriate bilaterally Reflexes: normal and equal CN:PERRL, EOMI, no facial asymmetry, uvula/tongue midline Laboratory Results Last 24 Hours Test 11/23/17 23:03 11/24/17 08:08 11/24/17 19:45 Activated Partial Thromboplast Time 53.6 SECONDS 33.7 SECONDS Partial Thromboplastin Ratio 2.1 1.3 White Blood Count 10.16 K/uL 14.22 K/uL Red Blood Count 3.14 M/uL 2.77 M/uL Hemoglobin 10.0 g/dL 8.7 g/dL Hematocrit 29.1 % 25.4 % Mean Corpuscular Volume 92.7 fL 91.7 fL Mean Corpuscular Hemoglobin 31.8 pg 31.4 pg Mean Corpuscular Hemoglobin Concent 34.4 g/dl 34.3 g/dl RDW Standard Deviation 58.0 fL 56.8 fL RDW Coefficient of Variation 17.3 % 17.0 % Platelet Count 256 K/uL 242 K/uL Mean Platelet Volume 10.2 fL 9.4 fL Prothrombin Time 10.1 SECONDS Prothromb Time International Ratio 1.0 Sodium Level 131 mmol/L 132 mmol/L Potassium Level 4.3 mmol/L 4.3 mmol/L Chloride Level 98 mmol/L 101 mmol/L Carbon Dioxide Level 24 mmol/L 21 mmol/L Anion Gap 9.0 mmol/L 11.0 mmol/L Blood Urea Nitrogen 5 mg/dl 5 mg/dl Creatinine 1.16 mg/dl 1.19 mg/dl Est Creatinine Clear Calc Drug Dose 52.6 ml/min 51.3 ml/min Estimated GFR () 73.0 70.8 Estimated GFR (Non- 63.0 61.1 BUN/Creatinine Ratio 4.1 4.2 Random Glucose 81 mg/dl 149 mg/dl Calcium Level 9.0 mg/dl 8.1 mg/dl Neutrophils (%) (Auto) 94.4 % Lymphocytes (%) (Auto) 3.2 % Monocytes (%) (Auto) 1.9 % Eosinophils (%) (Auto) 0.1 % Basophils (%) (Auto) 0.1 % Neutrophils # (Auto) 13.43 K/uL Lymphocytes # (Auto) 0.46 K/uL Monocytes # (Auto) 0.27 K/uL Eosinophils # (Auto) 0.01 K/uL Basophils # (Auto) 0.01 K/uL Immature Granulocyte % (Auto) 0.3 % Immature Granulocyte # (Auto) 0.04 K/uL Schistocytes OCCASIONAL Assessment & Plan (1) Gangrene due to peripheral vascular disease (2) COPD (chronic obstructive pulmonary disease) (3) Peripheral neuropathy (4) Hyperlipidemia (5) CAD (coronary artery disease) (6) Depression (7) Alcohol use disorder (8) Dementia PLAN: Neuro: * Percocet and Morphine in place * Alcohol Withdrawal Protocol in place * Folic Acid and B12 * Continue Home medications Resp: Supplemental oxygen as required CV: * Monitor on telemetry * Continue Statin * Holding Warfarin per Dr. Hussein * Arterial line in place; monitor SBP Fluids/Renal: * Barrientos in place to gravity * D5 1/2 NSS at 100mLs/hr * Daily PRP, Trend and replace electrolytes per protocol ID: * Prophylaxis Zosyn * Trend Fever curve GI/Nutrition: * Continue Karey supplementation * Diet Resumed * Continue Ranitidine Heme: * Repeat CBC in AM * No gross signs of bleeding * Lovenox in place Endocrine: Accu-Checks per protocol, started insulin infusion for 2 blood sugars greater than 180 CCT: 0 Minutes; Level 3 inpatient billing. This time is exclusive of all separately billable procedures. Thank you for involving us in the care of this patient. Please refer to Dr. Hilton Ramsey's addendum for further recommendations. I have personally evaluated and examined this patient. I agree with assessment and plan of Marquis Champion PA-C.
--- NOTE | 2017-11-24 21:40 | OPERATIVE REPORT ---
DATE OF OPERATION: 11/24/2017 PREOPERATIVE DIAGNOSIS: Right lower extremity peripheral arterial disease with gangrene of right great toe amputation site. POSTOPERATIVE DIAGNOSIS: Right lower extremity peripheral arterial disease with gangrene of right great toe amputation site. PROCEDURE: Right superficial femoral endarterectomy with bovine patch angioplasty, right femoral to peroneal in situ bypass, completion angiogram of the right lower extremity, ligation of venous side branches. SURGEON: Dr. Abhijeet Hussein. SOLE MOLDING MACHINE OPERATOR: Dr. Rachelle Watts; Sara Cuevas PA-C. ESTIMATED BLOOD LOSS: 200 mL. ANESTHESIA: General endotracheal anesthesia. COMPLICATIONS: None. DRAINS: None. INDICATIONS: Mr. Sven Doty is a 72-year-old gentleman with history of DVT, hypertension, hypercholesterolemia, peripheral arterial disease of the bilateral lower extremity status post previous left femoral to peroneal bypass, status post right great toe amputation, complicated by dry gangrene of the right great toe amputation site. He previously underwent bilateral lower extremity angiogram that showed a long segment SFA and popliteal occlusion on the right side with the peroneal being the only tibial runoff in his right leg. For this reason, he was recommended to undergo a femoral to peroneal bypass for limb salvage. The risks, benefits and alternatives were discussed with the patient and he consented to the procedure. DESCRIPTION OF PROCEDURE: The patient was taken to the operating room and placed in supine position. General endotracheal anesthesia was induced by anesthesia colleagues. The right groin and leg were prepped and draped in the usual sterile fashion. A safety timeout was performed and the patient, procedure, and sidedness were correctly identified. We first turned our attention to the right groin. A longitudinal right groin incision was made over the femoral artery. Subcutaneous tissues were divided with Bovie electrocautery. The common femoral artery was identified and dissected circumferentially. The SFA and profunda were also identified and dissected circumferentially. The greater saphenous of the groin was identified having multiple branches. Several side branches were ligated leaving 2 large branches. Once we were satisfied with this dissection, we turned our attention to the below knee incision. A longitudinal incision was made 1 fingerbreadth medial and posterior to the medial edge of the tibia. Subcutaneous tissues were divided with Bovie electrocautery. The fascia was divided. Gastrocnemius was identified and retracted posteriorly. Soleus was identified and its attachments to the tibia were taken down with Bovie electrocautery. The neurovascular bundle was identified. We began our dissection at the below knee pop and identified the below knee popliteal artery. This was dissected distally to identify the takeoff of the AT, the tibioperoneal trunk, the posterior tibial, and peroneal artery. Usable segment of the peroneal artery was identified and appeared soft. This was dissected circumferentially and appeared to be a good target for a bypass. We then turned our attention to the saphenous vein in the calf. This was dissected free from the posterior aspect of our skin incision and all side branches were ligated and divided. We then returned to the groin. The patient was systemically heparinized with 5000 units of intravenous heparin. After an appropriate amount of time the common femoral, SFA, and profunda were clamped. An 11 blade scalpel was used to make an arteriotomy and this was extended with Noland scissors. There appeared to be a significant amount of plaque within the SFA as well as thrombus. Arteriotomy was extended proximally to expose a fair amount of common femoral plaque. This was endarterectomized without difficulty. A bovine pericardial patch was then brought onto the field. This was sewn over the common femoral arteriotomy using 5-0 Prolene in a running fashion. Following completion of our patch, all vessels were back bled and the anastomosis was flushed. The patch appeared hemostatic. The greater saphenous vein at the saphenofemoral junction was clamped and divided. The remaining stump of saphenous vein was oversewn with a 5-0 running Prolene suture. The clamps were then replaced on the femoral, SFA, and profunda. A patchotomy was made with an 11 blade scalpel. The proximal end of the greater saphenous was spatulated and anastomosed to common femoral patch with 5-0 Prolene in a running fashion. All blood vessels were back bled and air and clot were removed prior to completion of the anastomosis. The anastomosis appeared hemostatic. We then turned our attention back to the calf. The distal most aspect of the saphenous vein was ligated and divided. A valvulotome was then passed from the distal end of the saphenous vein proximally and used to lyse all valves within the greater saphenous vein. With only a single pass of the valvulotome, pulsatile flow was appreciated in the greater saphenous vein. This was then cut to length. The peroneal artery was clamped and an arteriotomy was made with 11 blade scalpel and extended with Noland scissors. The greater saphenous vein was then cut to length and spatulated. It was anastomosed to the peroneal artery in an end-to-side fashion with running 6-0 Prolene suture. All vessels were back bled prior to completion of the anastomosis and the bypass was de-aired. Following completion of the anastomosis, there was pulsatile flow within the bypass. A strong peroneal signal was appreciated. We then turned our attention to the venous side branches of the greater saphenous. Using a Doppler, we identified a side branch in the mid to proximal thigh. Longitudinal incision was made adjacent to the bypass and the side branch was identified. Unfortunately, in this process, the bypass was damaged. The bypass was clamped proximally and distally to the area of injury. Given that the area of injury was greater than 50% of the bypass we transected the bypass at this point and did an end-to-end anastomosis. This was completed with 6-0 Prolene in running fashion. Prior to completion of the anastomosis, the bypass was flushed. Following completion of the anastomosis, a pulse was still appreciated in the bypass. A completion angiogram was then obtained and showed an additional large venous side branch in the proximal thigh. Remainder of the angiogram showed a patent bypass with patent distal anastomosis and peroneal runoff that extended to the foot. After the venous side branch was identified, an incision was made over that area and the dissection carried down to the side branch. This was ligated and divided. Peroneal Doppler signal following completion of the side branch ligation was strong. All wounds were irrigated. Hemostasis was achieved with a combination of Bovie electrocautery, additional clip placement, and several [id number] Vicryl sutures. The groin incision was closed in multiple layers of Vicryl. The 2 thigh side branch sites were closed with a single layer of 2-0 Vicryl. The fascia over the calf incision was closed with 2-0 running Vicryl suture. Skin was reapproximated at all 4 incisions with skin ritesh. Sterile dressings were applied. The patient tolerated the procedure well and there were no immediate complications. He was transferred to the ICU in stable condition. Dr. Abhijeet Hussein was present for the entire procedure. I attest to the content of the Intraoperative Record and any orders documented therein. Any exceptions are noted below. MTDD
[2017-11-25] VITALS (80 sets, daily range): BP systolic 17–121; BP diastolic 17–60; PULSE 64–100; TEMP 36.4–36.9; O2SAT 94–100
[2017-11-25] MEDS: OXYCODONE/ACETAMINOPHEN 5-325 TAB PO PRN ×2 (00:40→12:37)
[2017-11-25 04:43] LABS: HEMOGLOBIN 6.7 g/dL (14.0-18.0); MEAN CELL VOLUME 92.6 fL (80-100); MEAN CORPUSCULAR HGB CONC 33.5 g/dl (32-36); MEAN PLATELET VOLUME 9.1 fL (7.4-10.4); PLATELET COUNT 196 K/uL (130-400); RED CELL DISTRIBUTION WIDTH CV 17.1 % (11.5-14.5); RED CELL DISTRIBUTION WIDTH SD 57.7 fL (36.4-46.3); WHITE BLOOD COUNT 11.13 K/uL (4.8-10.8)
[2017-11-25 04:49] LABS: ALBUMIN 1.7 gm/dl (3.4-5.0); CALCIUM 7.6 mg/dl (8.5-10.1); CREATININE 1.31 mg/dl (0.60-1.40); PHOSPHORUS 3.3 mg/dl (2.5-4.9); POTASSIUM 4.3 mmol/L (3.5-5.1)
[2017-11-25 05:17] LABS: BASO % 0.2 %; BASO ABS # 0.02 K/uL (0-0.2); EOS % 0.1 %; EOS ABS # 0.01 K/uL (0-0.5); IG# 0.04 K/uL (0.00-0.02); LYMPH % 8.1 %; MONO % 6.3 %; NEUT % 84.9 %; NEUT ABS # 9.46 K/uL (1.4-6.5)
[2017-11-25] MEDS: BOOST VANILLA PO SCH ×2 (07:52→18:14)
[2017-11-25] MEDS: ENOXAPARIN 40 MG/0.4 ML SYR SQ SCH ×2 (07:54→19:20)
[2017-11-25] MEDS: CALCIUM 600MG + VIT D 400 IU TAB PO SCH ×2 (07:54→20:16)
[2017-11-25] MEDS: FERROUS SULFATE 325 MG TAB PO SCH (07:55)
[2017-11-25] MEDS: SERTRALINE HCL 50 MG TAB PO SCH (07:55)
[2017-11-25] MEDS: CYANOCOBALAMIN 500 MCG TAB (VIT B-12) PO SCH (07:55)
[2017-11-25] MEDS: RANITIDINE HCL 150 MG TAB PO SCH (07:55)
[2017-11-25] MEDS: MAGNESIUM OXIDE 400 MG TAB PO SCH ×2 (07:55→20:16)
[2017-11-25] MEDS: PIPERACILL/TAZOBAC IV 3.375 GM in DEXTROSE 5% 100ML IV SCH ×3 (07:57→23:50)
[2017-11-25] MEDS: THIAMINE HCL INJ 100 MG in SYRINGE 9 ML IV SCH (08:01)
--- NOTE | 2017-11-25 08:09 | Anesthesiology Progress Note ---
Anesthesia Post Op Note Date & Time Nov 25, 2017 at 08:08 Vital Signs Pain Intensity: 6.0 Vital Signs Past 12 Hours Date Time Temp Pulse Resp B/P (MAP) Pulse Ox O2 Delivery O2 Flow Rate FiO2 11/25/17 07:55 36.4 84 16 90/43 97 11/25/17 07:34 36.6 87 18 93/58 98 11/25/17 06:30 36.7 71 18 93/37 98 11/25/17 06:15 80 18 97/41 (59) 100 11/25/17 06:01 71 12 88/36 (53) 98 11/25/17 06:00 72 14 87/35 (52) 98 11/25/17 06:00 36.6 72 14 87/35 98 11/25/17 05:46 90 17 105/45 (65) 97 11/25/17 05:45 81 15 95/38 (57) 99 11/25/17 05:31 77 14 90/38 (55) 98 11/25/17 05:30 36.7 73 12 87/34 97 11/25/17 05:30 73 12 87/34 (51) 97 11/25/17 05:16 71 20 84/33 (50) 97 11/25/17 05:15 36.6 71 23 79/32 98 11/25/17 05:15 71 23 79/32 (48) 98 11/25/17 05:01 75 14 103/40 (61) 100 11/25/17 05:00 82 18 102/39 (60) 99 11/25/17 04:45 70 14 89/34 (52) 97 11/25/17 04:30 67 16 83/32 (49) 97 11/25/17 04:22 65 16 90/36 (54) 97 Room Air 11/25/17 04:01 69 18 74/33 (47) 96 11/25/17 04:00 Room Air 11/25/17 04:00 69 14 71/33 (46) 96 Room Air 11/25/17 03:05 71 17 81/37 (52) 97 11/25/17 03:00 72 15 81/39 (53) 97 Nasal Cannula 2.0 11/25/17 02:01 85 17 92/40 (61) 100 94/45 2/15/18 02:00 84 14 90/47 (61) 100 11/25/17 01:04 89 16 100/55 (72) 100 113/50 11/25/17 01:00 91 15 103/46 (65) 100 11/25/17 00:23 100 31 82/55 (59) 99 99/50 11/25/17 00:20 98 15 79/43 (54) 100 96/47 11/25/17 00:16 70 17 75/34 (55) 100 88/40 11/25/17 00:01 36.8 74 16 101/47 (65) 100 11/25/17 00:01 74 16 89/45 (64) 100 101/47 11/24/17 23:59 Nasal Cannula 2.0 11/24/17 23:31 78 18 93/45 (61) 100 11/24/17 23:16 77 14 97/53 (66) 100 101/48 11/24/17 23:16 77 14 101/48 (65) 100 11/24/17 23:02 107 17 97/56 (72) 96 106/53 11/24/17 23:02 107 17 106/53 (70) 96 11/24/17 23:00 111 19 104/51 (68) 100 11/24/17 22:47 80 27 98/48 (65) 100 11/24/17 22:47 80 27 112/72 (65) 100 98/48 11/24/17 22:31 102 14 113/54 (73) 100 11/24/17 22:31 102 14 111/56 (73) 100 113/54 11/24/17 22:16 81 14 98/49 (64) 100 101/47 11/24/17 22:16 81 14 101/47 (65) 100 11/24/17 22:01 36.8 82 13 89/52 (67) 100 107/49 11/24/17 22:01 82 13 107/49 (68) 100 11/24/17 22:00 77 14 106/47 (66) 100 18 21:46 76 13 111/49 (69) 100 11/24/17 21:35 36.7 83 13 96/47 (63) 100 Nasal Cannula 2.0 11/24/17 21:18 Nasal Cannula 2.0 18 21:15 85 18 102/53 (69) 100 Nasal Cannula 2.0 11/24/17 21:00 84 18 99/55 (70) 99 Nasal Cannula 2.0 11/24/17 20:45 97 18 91/59 (70) 99 Nasal Cannula 2.0 11/24/17 20:30 36.7 93 18 119/66 (83) 100 Nasal Cannula 2.0 11/24/17 20:30 Nasal Cannula 2.0 11/24/17 20:10 36.6 82 14 103/59 100 Nasal Cannula 2 Notes Mental Status: alert / awake / arousable, participated in evaluation Pt Amnestic to Procedure: Yes Nausea / Vomiting: adequately controlled Pain: adequately controlled Airway Patency, RR, SpO2: stable & adequate BP & HR: stable & adequate Hydration State: stable & adequate Anesthetic Complications: no major complications apparent
[2017-11-25] MEDS ORDERED: ICU PROTOCOL FOR HYPERGLYCEMIA PRN (10:00)
[2017-11-25] MEDS ORDERED: GABAPENTIN 400MG Q24H DOSE PO SCH (10:00)
[2017-11-25] MEDS: ALBUMIN HUMAN 5% 12.5 GM/250 ML VIAL IV SCH ×2 (10:12→10:15)
--- NOTE | 2017-11-25 11:43 | Clinical Documentation Query ---
PADDY Cid : CLINICAL DOCUMENTATION QUERY Patient is a 72 year old male who underwent right SFA endarterectomy with bovine patch angioplasty, RFA to RPA in situ bypass on 11/24. Documentation includes malnutrition. Patient has lost 19.3 Kg since 12/12/16. This represents 23.3% of patients initial body weight over this interval. In your clinical opinion is this patient being managed for: ( ) Severe protein-calorie malnutrition ( ) Not Agree ( ) Other explanation of clinical findings (Please Explain) (x ) Unable to determine (Please Define) ( ) Need to Discuss The medical record reflects the following clinical findings, treatment, and risk factors. Clinical Indicators: As above. Patient reports occasional difficulty swallowing, estimated 50-75% of meal intake Treatment: I/O, daily weights, Boost supplementation, electrical manufacturing engineer consultation, MVI Risk Factors: Age, alcohol consumption Please clarify and document your clinical opinion in the progress notes and discharge summary. Terms such as "probable", "suspected", "likely", "questionable", "possible", or "still to be ruled out" are acceptable. IF IN AGREEMENT, YOU MUST DOCUMENT ABOVE DIAGNOSTIC STATEMENT IN DAILY PROGRESS NOTES AND DISCHARGE SUMMARY. This document is not part of the patient's record. Thank You, Hilton Steele, RN [phone]
[2017-11-25 12:14] LABS: HEMATOCRIT 25.9 % (42-52)
--- NOTE | 2017-11-25 12:57 | Progress Note ---
Progress Note Date of Service: Nov 25, 2017. Subjective No complaints, No foot pain Problem List Medical Problems: (1) Change in mental status Status: Acute (2) Closed fracture of neck of left humerus Status: Acute (3) Dehydration Status: Acute (4) Dehydration Status: Acute (5) Dementia Status: Acute (6) Gangrene of toe Status: Acute (7) History of alcohol abuse Status: Chronic (8) Leukocytosis Status: Acute (9) Multiple contusions Status: Acute (10) STEMI (ST elevation myocardial infarction) Status: Acute (11) STEMI (ST elevation myocardial infarction) Status: Acute (12) UTI (urinary tract infection) Status: Acute (13) Wound of abdomen Status: Acute Objective Vital Signs Vital Signs Past 12 Hours Date Time Temp Pulse Resp B/P (MAP) Pulse Ox O2 Delivery O2 Flow Rate FiO2 11/25/17 12:00 36.6 76 18 107/57 (74) 100 11/25/17 11:16 80 18 109/38 (61) 96 11/25/17 11:01 79 23 118/45 (69) 98 11/25/17 11:00 77 21 109/40 (63) 100 11/25/17 10:47 68 17 109/39 (62) 94 11/25/17 10:31 64 16 100/33 (55) 100 11/25/17 10:30 67 19 99/34 (55) 100 11/25/17 10:16 69 19 109/39 (62) 99 11/25/17 10:01 72 13 98/37 (57) 99 11/25/17 10:00 74 16 96/37 (56) 98 11/25/17 09:46 74 17 100/36 (57) 97 11/25/17 09:30 77 17 96/39 (58) 99 11/25/17 09:30 36.7 73 18 99/37 98 11/25/17 09:00 84 14 85/37 (53) 100 11/25/17 09:00 36.6 74 20 93/38 99 11/25/17 08:46 73 15 103/38 (59) 99 11/25/17 08:45 78 18 97/37 (57) 98 11/25/17 08:31 73 14 100/38 (58) 99 11/25/17 08:30 36.6 71 19 98/48 98 11/25/17 08:30 71 19 100/37 (58) 98 11/25/17 08:16 91 19 102/35 (57) 96 11/25/17 08:15 85 15 94/40 (58) 97 11/25/17 08:01 82 26 87/38 (54) 97 11/25/17 08:00 84 16 92/38 (56) 96 11/25/17 08:00 36.6 80 18 96/60 (72) 100 11/25/17 07:55 36.4 84 16 90/43 97 11/25/17 07:47 90 26 88/42 (57) 94 11/25/17 07:45 82 16 87/40 (56) 97 11/25/17 07:35 85 18 94/50 (65) 96 11/25/17 07:34 36.6 87 18 93/58 98 11/25/17 07:32 89 16 97/49 (65) 95 11/25/17 07:30 86 12 94/46 (62) 96 11/25/17 07:22 90 27 103/50 (67) 97 11/25/17 07:16 69 18 109/40 (63) 97 11/25/17 07:15 77 19 111/41 (64) 98 11/25/17 07:01 83 14 84/37 (53) 97 11/25/17 07:00 76 12 101/39 (59) 98 11/25/17 06:30 36.7 71 18 93/37 98 11/25/17 06:15 80 18 97/41 (59) 100 11/25/17 06:01 71 12 88/36 (53) 98 11/25/17 06:00 72 14 87/35 (52) 98 11/25/17 06:00 36.6 72 14 87/35 98 11/25/17 05:46 90 17 105/45 (65) 97 11/25/17 05:45 81 15 95/38 (57) 99 11/25/17 05:31 77 14 90/38 (55) 98 11/25/17 05:30 36.7 73 12 87/34 97 11/25/17 05:30 73 12 87/34 (51) 97 11/25/17 05:16 71 20 84/33 (50) 97 11/25/17 05:15 36.6 71 23 79/32 98 11/25/17 05:15 71 23 79/32 (48) 98 11/25/17 05:01 75 14 103/40 (61) 100 11/25/17 05:00 82 18 102/39 (60) 99 11/25/17 04:45 70 14 89/34 (52) 97 11/25/17 04:30 67 16 83/32 (49) 97 11/25/17 04:22 65 16 90/36 (54) 97 Room Air 11/25/17 04:01 69 18 74/33 (47) 96 11/25/17 04:00 Room Air 11/25/17 04:00 69 14 71/33 (46) 96 Room Air 11/25/17 03:05 71 17 81/37 (52) 97 11/25/17 03:00 72 15 81/39 (53) 97 Nasal Cannula 2.0 11/25/17 02:01 85 17 92/40 (61) 100 94/45 11/25/17 02:00 84 14 90/47 (61) 100 11/25/17 01:04 89 16 100/55 (72) 100 113/50 11/25/17 01:00 91 15 103/46 (65) 100 Exam VSS Afebrile Dressings intact Good doppler in right foot. Intake & Output 8-Hour Column 11/25/17 11/26/17 11/26/17 16:00 00:00 08:00 Intake Total 310 ml Balance 310 ml 24-Hour Column 11/26/17 08:00 Intake Total 310 ml Balance 310 ml Laboratory and Microbiology Results Past 24 Hours Test 11/24/17 19:45 11/25/17 04:16 11/25/17 11:58 Range/Units White Blood Count 14.22 11.13 4.8-10.8 K/uL Red Blood Count 2.77 2.16 4.7-6.1 M/uL Hemoglobin 8.7 6.7 9.0 14.0-18.0 g/dL Hematocrit 25.4 20.0 25.9 42-52 % Mean Corpuscular Volume 91.7 92.6 80-100 fL Mean Corpuscular Hemoglobin 31.4 31.0 25-34 pg Mean Corpuscular Hemoglobin Concent 34.3 33.5 32-36 g/dl Platelet Count 242 196 130-400 K/uL Mean Platelet Volume 9.4 9.1 7.4-10.4 fL Neutrophils (%) (Auto) 94.4 84.9 % Lymphocytes (%) (Auto) 3.2 8.1 % Monocytes (%) (Auto) 1.9 6.3 % Eosinophils (%) (Auto) 0.1 0.1 % Basophils (%) (Auto) 0.1 0.2 % Neutrophils # (Auto) 13.43 9.46 1.4-6.5 K/uL Lymphocytes # (Auto) 0.46 0.90 1.2-3.4 K/uL Monocytes # (Auto) 0.27 0.70 0.11-0.59 K/uL Eosinophils # (Auto) 0.01 0.01 0-0.5 K/uL Basophils # (Auto) 0.01 0.02 0-0.2 K/uL RDW Standard Deviation 56.8 57.7 36.4-46.3 fL RDW Coefficient of Variation 17.0 17.1 11.5-14.5 % Immature Granulocyte % (Auto) 0.3 0.4 % Immature Granulocyte # (Auto) 0.04 0.04 0.00-0.02 K/uL Schistocytes OCCASIONAL Sodium Level 132 131 136-145 mmol/L Potassium Level 4.3 4.3 3.5-5.1 mmol/L Chloride Level 101 99 98-107 mmol/L Carbon Dioxide Level 21 24 21-32 mmol/L Anion Gap 11.0 8.0 3-11 mmol/L Blood Urea Nitrogen 5 9 7-18 mg/dl Creatinine 1.19 1.31 0.60-1.40 mg/dl Est Creatinine Clear Calc Drug Dose 51.3 46.6 ml/min Estimated GFR () 70.8 63.0 Estimated GFR (Non- 61.1 54.4 BUN/Creatinine Ratio 4.2 6.5 10-20 Random Glucose 149 211 70-99 mg/dl Calcium Level 8.1 7.6 8.5-10.1 mg/dl Anisocytosis PRESENT Phosphorus Level 3.3 2.5-4.9 mg/dl Magnesium Level 1.9 1.8-2.4 mg/dl Albumin 1.7 3.4-5.0 gm/dl Microbiology Results 2/14/18 MRSA DNA Surveillance Screen - Final, Complete Specimen Negative for MRSA by DNA Probe Imp: Post right leg bypass Plan: Doing well Will transfer to floor.
--- NOTE | 2017-11-25 13:20 | Critical Care Progress Note ---
Critical Care Progress Note Date of Service Nov 25, 2017. ICU Day ICU Day Number: [address] Ramsey Subjective Found patient awake, sitting up in bed, pleasantly conversational. Denies any acute pain or other concerns. Objective General - Awake, alert, conversational, not sure of year but otherwise oriented , appears in NAD. Mildly cachetic. HEENT: NCAT, EOMI, no icterus, moist oral MM, supple neck. Pulm - CTA (B). No respiratory distress. CVS - +S1S2 RRR, no murmurs. Positive doppler bilateral dorsalis pedis pulses. Abdomen - + BS, soft, non-tender, non-distended. Extremities - Right medial upper leg dressings c/d/i. Generalized RUE edema. Missing bilateral great toes. Distal strength intact. Neuro - No focal neuro deficits. Neuro - Alert and appropriate with redirection Assessment & Plan 72 yo male POD #1 for a right superficial femoral endarterectomy with bovine patch angioplasty, right femoral to peroneal in situ bypass, and completion angiogram of the right lower extremity by Dr. Hussein (vascular surgery). 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 No acute issues. Known alcohol use disorder, though denies any recent use (and EtOH here < 3). On alcohol withdrawal protocol. Dementia, depression, and peripheral neuropathy. Continuing home Vitamin B12, folic acid, thiamine, gabapentin, and sertraline. - Morphine prn. Percocet prn. - Ativan prn per protocol. Pulm: No acute issues. COPD, some supplemental oxygen overnight post-op. Good RA SpO2 since. - Supplemental oxygen prn. CVS: Post-op as above. No acute heart issues. Positive doppler DP pulses bilaterally. Some hypotension overnight, tx with IVF then 2 units PRBCs. - Ordered albumin infusion this am. - Watching vitals. On telemetry monitoring. On statin. - Noted history of CAD s/p CABG & stents, hyperlipidemia, and peripheral vascular disease (history of left femoral-peroneal bypass as well as multiple toe amputations). ID: Afebrile. WBC 11. On prophy zosyn. Nasal MRSA negative. Endo: No acute issues. Hyperglycemia protocol. Rechecked H&H, adequate response symptomatically improved. Patient was downgraded later today by Dr. Ziegler Renal/Lytes: Barrientos in place. Na 131. Net positive 5 liters thus far. - Monitoring urine output for diuresis. GI: History of malnutrion and alcohol abuse. No immediate issues. Low albumin. - Ordered albumin infusion as noted above. - On regular diet here to encourage increased calories. Boost supplements. - Zantac prophylaxis. Heme: Post-op Hb lowest 6.7. No gross signs of bleeding. Transfused 2 units PRBCs this AM, repeat Hb 9.0. Hx DVT/PE on coumadin. INR 1.0. - Holding coumadin per Dr. Hussein. Skin: Monitoring incision sites, presently dressings c/d/i. 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 Right popliteal region a bit warm with generalized RLE edema. - Watching for any evidence of local infection, bleeding, or new ischemia. Lines: Right wrist a-line. Right PIV. Code status: Full code. DVT prophy: Lovenox. PT/OT: Deferred at present. Dispo: ICU post-op. Dispo per surgery. Resident Physician Supervision Note: Dr. Reid was resident physician during care of patient. I separately evaluated patient and did history and exam. I discussed the case with the resident and generally agree with the findings and plan. Given 500 mL's of 5% albumin for hypotension, Documented By: Hilton Ramsey DO Consults & Procedures Consultants: Procedures: 14Feb: As stated in operative note by Dr. Hussein. Data Medications: Current Inpatient Medications Medications (Trade) Dose Ordered Sig/Nieves Route Start Time Stop Time Status Last Admin Dose Admin Acetaminophen (Tylenol Tab) 650 mg Q4H PRN PO 11/19/17 10:00 12/19/17 09:59 11/23/17 04:55 650 MG Polyethylene (Miralax Powder Packet) 17 gm DAILY PRN PO 11/19/17 10:00 12/19/17 09:59 Ondansetron HCl (Zofran Inj) 4 mg Q6H PRN IV 11/19/17 10:00 12/19/17 09:59 Atorvastatin Calcium (Lipitor Tab) 80 mg QDD PO 11/19/17 17:45 12/19/17 17:59 11/23/17 18:17 80 MG Calcium/Vitamin D (Caltrate Plus Tab) 1 tab BID PO 11/19/17 21:00 12/19/17 20:59 11/25/17 07:54 1 TAB Cyanocobalamin (Vitamin B-12 Tab) 1,000 mcg QAM PO 11/20/17 09:00 12/20/17 08:59 11/25/17 07:55 1,000 MCG Folic Acid (Folvite Tab) 1 mg QAM PO 11/20/17 09:00 12/20/17 08:59 11/25/17 07:55 1 MG Gabapentin (Neurontin Cap) 100 mg TID PO 11/19/17 14:00 12/19/17 13:59 Future Hold 11/21/17 19:43 100 MG Magnesium Oxide (Mag-Ox Tab) 400 mg BID PO 11/19/17 21:00 12/19/17 20:59 11/25/17 07:55 400 MG Oxycodone/ Acetaminophen (Percocet 5-325mg Tab) 1 tab Q6H PRN PO 11/19/17 10:15 12/03/17 10:14 11/25/17 12:37 1 TAB Ranitidine HCl (zANTac TAB) 150 mg QAM PO 11/20/17 09:00 12/20/17 08:59 11/25/17 07:55 150 MG Sertraline HCl (Zoloft Tab) 50 mg QAM PO 11/20/17 09:00 12/20/17 08:59 11/25/17 07:55 50 MG Ferrous Sulfate (Feosol Tab) 325 mg DAILY PO 11/20/17 09:00 12/20/17 08:59 11/25/17 07:55 325 MG Miscellaneous (Iv Fluids Completed) 1 ea PRN PRN N/A 11/19/17 12:00 11/19/18 11:59 Lorazepam (Ativan Tab) 1 mg ONE PRN PO 11/19/17 13:00 Enteral Nutritional Formula (Boost) 1 can BIDM PO 11/19/17 17:45 12/19/17 17:44 11/25/17 07:52 1 CAN Miscellaneous Information (Consult) 1 ea UD PRN N/A 11/19/17 22:15 12/19/17 22:14 Piperacillin Sod/ Tazobactam Sod 3.375 gm/Dextrose 115 ml @ 28.75 mls/ hr Q8H IV 11/20/17 04:00 11/30/17 03:59 11/25/17 07:57 28.75 MLS/HR Thiamine HCl 100 mg/Syringe 10 ml @ 2 mls/min DAILY IV 11/22/17 09:00 12/22/17 08:59 11/25/17 08:01 2 MLS/MIN Lorazepam (Ativan Tab) 1 mg ONE PRN PO 11/21/17 20:15 Morphine Sulfate (MoRPHine SULFATE INJ) If PO analgesic is orde... Q2H PRN IV 11/24/17 18:30 12/08/17 18:29 11/24/17 23:15 2 MG Ondansetron HCl (Zofran Inj) 4 mg Q6H PRN IV 11/24/17 18:30 12/24/17 18:29 Enoxaparin Sodium (Lovenox Inj) 40 mg Q12H SQ 11/25/17 08:00 12/25/17 07:59 11/25/17 07:54 40 MG Morphine Sulfate (MoRPHine SULFATE INJ) If PO analgesic is orde... Q2H PRN IV 11/24/17 19:45 12/08/17 19:44 Miscellaneous Information (Icu Protocol For Hyperglycemia) 1 ea PRN PRN N/A 11/25/17 10:00 11/27/17 09:59 I & O: 24-Hour Column 11/26/17 08:00 Intake Total 310 ml Balance 310 ml Vital Signs: Date Time Temp Pulse Resp B/P (MAP) Pulse Ox O2 Delivery O2 Flow Rate FiO2 11/25/17 12:00 36.6 76 18 107/57 (74) 100 11/25/17 11:16 80 18 109/38 (61) 96 11/25/17 11:01 79 23 118/45 (69) 98 11/25/17 11:00 77 21 109/40 (63) 100 11/25/17 10:47 68 17 109/39 (62) 94 11/25/17 10:31 64 16 100/33 (55) 100 11/25/17 10:30 67 19 99/34 (55) 100 11/25/17 10:16 69 19 109/39 (62) 99 11/25/17 10:01 72 13 98/37 (57) 99 11/25/17 10:00 74 16 96/37 (56) 98 11/25/17 09:46 74 17 100/36 (57) 97 11/25/17 09:30 77 17 96/39 (58) 99 11/25/17 09:30 36.7 73 18 99/37 98 11/25/17 09:00 84 14 85/37 (53) 100 11/25/17 09:00 36.6 74 20 93/38 99 11/25/17 08:46 73 15 103/38 (59) 99 11/25/17 08:45 78 18 97/37 (57) 98 11/25/17 08:31 73 14 100/38 (58) 99 11/25/17 08:30 36.6 71 19 98/48 98 11/25/17 08:30 71 19 100/37 (58) 98 11/25/17 08:16 91 19 102/35 (57) 96 11/25/17 08:15 85 15 94/40 (58) 97 11/25/17 08:01 82 26 87/38 (54) 97 11/25/17 08:00 84 16 92/38 (56) 96 11/25/17 08:00 36.6 80 18 96/60 (72) 100 11/25/17 07:55 36.4 84 16 90/43 97 11/25/17 07:47 90 26 88/42 (57) 94 11/25/17 07:45 82 16 87/40 (56) 97 11/25/17 07:35 85 18 94/50 (65) 96 11/25/17 07:34 36.6 87 18 93/58 98 11/25/17 07:32 89 16 97/49 (65) 95 11/25/17 07:30 86 12 94/46 (62) 96 11/25/17 07:22 90 27 103/50 (67) 97 11/25/17 07:16 69 18 109/40 (63) 97 11/25/17 07:15 77 19 111/41 (64) 98 11/25/17 07:01 83 14 84/37 (53) 97 11/25/17 07:00 76 12 101/39 (59) 98 11/25/17 06:30 36.7 71 18 93/37 98 11/25/17 06:15 80 18 97/41 (59) 100 11/25/17 06:01 71 12 88/36 (53) 98 11/25/17 06:00 72 14 87/35 (52) 98 11/25/17 06:00 36.6 72 14 87/35 98 11/25/17 05:46 90 17 105/45 (65) 97 11/25/17 05:45 81 15 95/38 (57) 99 11/25/17 05:31 77 14 90/38 (55) 98 11/25/17 05:30 36.7 73 12 87/34 97 11/25/17 05:30 73 12 87/34 (51) 97 11/25/17 05:16 71 20 84/33 (50) 97 11/25/17 05:15 36.6 71 23 79/32 98 11/25/17 05:15 71 23 79/32 (48) 98 11/25/17 05:01 75 14 103/40 (61) 100 11/25/17 05:00 82 18 102/39 (60) 99 11/25/17 04:45 70 14 89/34 (52) 97 11/25/17 04:30 67 16 83/32 (49) 97 11/25/17 04:22 65 16 90/36 (54) 97 Room Air 11/25/17 04:01 69 18 74/33 (47) 96 11/25/17 04:00 Room Air 11/25/17 04:00 69 14 71/33 (46) 96 Room Air 11/25/17 03:05 71 17 81/37 (52) 97 11/25/17 03:00 72 15 81/39 (53) 97 Nasal Cannula 2.0 11/25/17 02:01 85 17 92/40 (61) 100 94/45 11/25/17 02:00 84 14 90/47 (61) 100 11/25/17 01:04 89 16 100/55 (72) 100 113/50 11/25/17 01:00 91 15 103/46 (65) 100 11/25/17 00:23 100 31 82/55 (59) 99 99/50 11/25/17 00:20 98 15 79/43 (54) 100 96/47 11/25/17 00:16 70 17 75/34 (55) 100 88/40 2/15/18 00:01 36.8 74 16 101/47 (65) 100 11/25/17 00:01 74 16 89/45 (64) 100 101/47 11/24/17 23:59 Nasal Cannula 2.0 11/24/17 23:31 78 18 93/45 (61) 100 11/24/17 23:16 77 14 97/53 (66) 100 101/48 11/24/17 23:16 77 14 101/48 (65) 100 11/24/17 23:02 107 17 97/56 (72) 96 106/53 11/24/17 23:02 107 17 106/53 (70) 96 11/24/17 23:00 111 19 104/51 (68) 100 11/24/17 22:47 80 27 98/48 (65) 100 11/24/17 22:47 80 27 112/72 (65) 100 98/48 11/24/17 22:31 102 14 113/54 (73) 100 11/24/17 22:31 102 14 111/56 (73) 100 113/54 11/24/17 22:16 81 14 98/49 (64) 100 101/47 11/24/17 22:16 81 14 101/47 (65) 100 11/24/17 22:01 36.8 82 13 89/52 (67) 100 107/49 11/24/17 22:01 82 13 107/49 (68) 100 11/24/17 22:00 77 14 106/47 (66) 100 11/24/17 21:46 76 13 111/49 (69) 100 11/24/17 21:35 36.7 83 13 96/47 (63) 100 Nasal Cannula 2.0 11/24/17 21:18 Nasal Cannula 2.0 11/24/17 21:15 85 18 102/53 (69) 100 Nasal Cannula 2.0 11/24/17 21:00 84 18 99/55 (70) 99 Nasal Cannula 2.0 11/24/17 20:45 97 18 91/59 (70) 99 Nasal Cannula 2.0 11/24/17 20:30 36.7 93 18 119/66 (83) 100 Nasal Cannula 2.0 11/24/17 20:30 Nasal Cannula 2.0 2/14/18 20:10 36.6 82 14 103/59 100 Nasal Cannula 2 11/24/17 20:00 82 13 108/61 100 Nasal Cannula 2 11/24/17 19:50 87 14 95/57 (67) 99 Nasal Cannula 2 11/24/17 19:40 92 15 109/61 100 Oxymask 10 11/24/17 19:33 36.6 90 12 109/67 100 Oxymask 10 Laboratory Results: Last 24 Hours Test 11/24/17 19:45 11/25/17 04:16 11/25/17 11:58 White Blood Count 14.22 K/uL 11.13 K/uL Red Blood Count 2.77 M/uL 2.16 M/uL Hemoglobin 8.7 g/dL 6.7 g/dL 9.0 g/dL Hematocrit 25.4 % 20.0 % 25.9 % Mean Corpuscular Volume 91.7 fL 92.6 fL Mean Corpuscular Hemoglobin 31.4 pg 31.0 pg Mean Corpuscular Hemoglobin Concent 34.3 g/dl 33.5 g/dl Platelet Count 242 K/uL 196 K/uL Mean Platelet Volume 9.4 fL 9.1 fL Neutrophils (%) (Auto) 94.4 % 84.9 % Lymphocytes (%) (Auto) 3.2 % 8.1 % Monocytes (%) (Auto) 1.9 % 6.3 % Eosinophils (%) (Auto) 0.1 % 0.1 % Basophils (%) (Auto) 0.1 % 0.2 % Neutrophils # (Auto) 13.43 K/uL 9.46 K/uL Lymphocytes # (Auto) 0.46 K/uL 0.90 K/uL Monocytes # (Auto) 0.27 K/uL 0.70 K/uL Eosinophils # (Auto) 0.01 K/uL 0.01 K/uL Basophils # (Auto) 0.01 K/uL 0.02 K/uL RDW Standard Deviation 56.8 fL 57.7 fL RDW Coefficient of Variation 17.0 % 17.1 % Immature Granulocyte % (Auto) 0.3 % 0.4 % Immature Granulocyte # (Auto) 0.04 K/uL 0.04 K/uL Schistocytes OCCASIONAL Sodium Level 132 mmol/L 131 mmol/L Potassium Level 4.3 mmol/L 4.3 mmol/L Chloride Level 101 mmol/L 99 mmol/L Carbon Dioxide Level 21 mmol/L 24 mmol/L Anion Gap 11.0 mmol/L 8.0 mmol/L Blood Urea Nitrogen 5 mg/dl 9 mg/dl Creatinine 1.19 mg/dl 1.31 mg/dl Est Creatinine Clear Calc Drug Dose 51.3 ml/min 46.6 ml/min Estimated GFR () 70.8 63.0 Estimated GFR (Non- 61.1 54.4 BUN/Creatinine Ratio 4.2 6.5 Random Glucose 149 mg/dl 211 mg/dl Calcium Level 8.1 mg/dl 7.6 mg/dl Anisocytosis PRESENT Phosphorus Level 3.3 mg/dl Magnesium Level 1.9 mg/dl Albumin 1.7 gm/dl Resident Tracking Resident Involvement: Resident Care Provided Care Provided: Adult Hospital Medicine (ICU care)
--- NOTE | 2017-11-25 17:57 | Progress Note ---
Medicine Progress Note Date & Time of Visit: Nov 25, 2017 at 10:46. Subjective Pt was seen and examined Sitting in chair in the ICU with no distress Pt said that he does not have any pain from the surgery Denies any chest pain, palpitation, dizziness and SOB Objective Last 8 Hrs Date Time Temp Pulse Resp B/P (MAP) Pulse Ox O2 Delivery O2 Flow Rate FiO2 11/25/17 14:40 36.6 84 18 113/54 (73) 100 Room Air 11/25/17 13:57 36.4 71 18 113/55 (74) 98 11/25/17 13:46 71 20 113/55 (74) 99 11/25/17 13:45 71 17 99 11/25/17 13:32 81 16 106/59 (75) 100 11/25/17 13:30 79 18 11/25/17 13:27 77 20 103/60 (74) 11/25/17 13:25 73 17 104/57 (73) 97 11/25/17 13:16 69 19 103/52 (69) 97 11/25/17 13:15 69 15 98 11/25/17 13:01 67 24 100 11/25/17 13:00 68 22 100 11/25/17 12:46 64 23 101/39 (59) 99 11/25/17 12:45 65 21 103/40 (61) 99 11/25/17 12:31 68 20 118/46 (70) 100 11/25/17 12:30 73 23 121/47 (71) 11/25/17 12:16 71 28 109/43 (65) 99 11/25/17 12:15 69 19 110/42 (64) 98 11/25/17 12:00 36.6 76 18 107/57 (74) 100 11/25/17 11:16 80 18 109/38 (61) 96 11/25/17 11:01 79 23 118/45 (69) 98 11/25/17 11:00 77 21 109/40 (63) 100 11/25/17 10:47 68 17 109/39 (62) 94 11/25/17 10:31 64 16 100/33 (55) 100 11/25/17 10:30 67 19 99/34 (55) 100 11/25/17 10:16 69 19 109/39 (62) 99 11/25/17 10:01 72 13 98/37 (57) 99 11/25/17 10:00 74 16 96/37 (56) 98 Physical Exam: General- No acute distress Head- atraumatic Eyes- PERRL, EOMI ENT- oropharynx clear Neck- supple, no JVD Lungs- No wheezing Heart- regular rhythm Abdomen- normal bowel sounds, soft Extremities- no calf tenderness, right foot wrapped with dressing Neuro- alert, oriented x 3; PERRL, EOMI; no facial palsy Skin- warm & dry Laboratory Results: Last 24 Hours Test 11/24/17 19:45 11/25/17 04:16 11/25/17 11:58 White Blood Count 14.22 K/uL 11.13 K/uL Red Blood Count 2.77 M/uL 2.16 M/uL Hemoglobin 8.7 g/dL 6.7 g/dL 9.0 g/dL Hematocrit 25.4 % 20.0 % 25.9 % Mean Corpuscular Volume 91.7 fL 92.6 fL Mean Corpuscular Hemoglobin 31.4 pg 31.0 pg Mean Corpuscular Hemoglobin Concent 34.3 g/dl 33.5 g/dl Platelet Count 242 K/uL 196 K/uL Mean Platelet Volume 9.4 fL 9.1 fL Neutrophils (%) (Auto) 94.4 % 84.9 % Lymphocytes (%) (Auto) 3.2 % 8.1 % Monocytes (%) (Auto) 1.9 % 6.3 % Eosinophils (%) (Auto) 0.1 % 0.1 % Basophils (%) (Auto) 0.1 % 0.2 % Neutrophils # (Auto) 13.43 K/uL 9.46 K/uL Lymphocytes # (Auto) 0.46 K/uL 0.90 K/uL Monocytes # (Auto) 0.27 K/uL 0.70 K/uL Eosinophils # (Auto) 0.01 K/uL 0.01 K/uL Basophils # (Auto) 0.01 K/uL 0.02 K/uL RDW Standard Deviation 56.8 fL 57.7 fL RDW Coefficient of Variation 17.0 % 17.1 % Immature Granulocyte % (Auto) 0.3 % 0.4 % Immature Granulocyte # (Auto) 0.04 K/uL 0.04 K/uL Schistocytes OCCASIONAL Sodium Level 132 mmol/L 131 mmol/L Potassium Level 4.3 mmol/L 4.3 mmol/L Chloride Level 101 mmol/L 99 mmol/L Carbon Dioxide Level 21 mmol/L 24 mmol/L Anion Gap 11.0 mmol/L 8.0 mmol/L Blood Urea Nitrogen 5 mg/dl 9 mg/dl Creatinine 1.19 mg/dl 1.31 mg/dl Est Creatinine Clear Calc Drug Dose 51.3 ml/min 46.6 ml/min Estimated GFR () 70.8 63.0 Estimated GFR (Non- 61.1 54.4 BUN/Creatinine Ratio 4.2 6.5 Random Glucose 149 mg/dl 211 mg/dl Calcium Level 8.1 mg/dl 7.6 mg/dl Anisocytosis PRESENT Phosphorus Level 3.3 mg/dl Magnesium Level 1.9 mg/dl Albumin 1.7 gm/dl Date/Time Source Procedure Growth Status 11/24/17 20:52 Nasal MRSA DNA Surveillance Screen - Final Specimen Negative for MRSA by DNA Probe Complete Assessment & Plan PERIPHERAL VASCULAR DISEASE Continue IV piperacillin for gangrene of right foot. Coumadin was discontinued due to upcoming procedure IV heparin discontinued S/P day#1 right superficial femoral endarterectomy with bovine patch graft, Right femoral to peroneal in situ bypass graft by dr. Hussein Continue pain control Stable ANEMIA ACUTE BLOOD LOSS POST OP Hgb dropped to 6.7 Received 2 unit PRBC today Repeat Hgb 9 Continue monitor H/H SUPRA THERAPEUTIC INR Elevated INR 4.9 on admission. Received Vit K INR 1.1 today Will resume Coumadin once ok by Vascular CORONARY ARTERY DISEASE No anginal symptoms HYPERTENSION Blood pressures in the low side Monitor BP COPD Respiratory status stable. CONFUSION Back to baseline ALCOHOL CONSUMPTION No signs of alcohol withdrawn. Continue gabapentin for alcohol withdrawn protocol VTE PROPHYLAXIS D/C IV heparin Will resume Coumadin once bleeding stable DISPOSITION Plan for vascular surgery this morning Will need placement Consultants: vascular Current Inpatient Medications: Current Inpatient Medications Medications (Trade) Dose Ordered Sig/Nieves Route Start Time Stop Time Status Last Admin Dose Admin Acetaminophen (Tylenol Tab) 650 mg Q4H PRN PO 11/19/17 10:00 12/19/17 09:59 11/23/17 04:55 650 MG Polyethylene (Miralax Powder Packet) 17 gm DAILY PRN PO 11/19/17 10:00 12/19/17 09:59 Ondansetron HCl (Zofran Inj) 4 mg Q6H PRN IV 11/19/17 10:00 12/19/17 09:59 Atorvastatin Calcium (Lipitor Tab) 80 mg QDD PO 11/19/17 17:45 12/19/17 17:59 11/23/17 18:17 80 MG Calcium/Vitamin D (Caltrate Plus Tab) 1 tab BID PO 11/19/17 21:00 12/19/17 20:59 11/25/17 07:54 1 TAB Cyanocobalamin (Vitamin B-12 Tab) 1,000 mcg QAM PO 11/20/17 09:00 12/20/17 08:59 11/25/17 07:55 1,000 MCG Folic Acid (Folvite Tab) 1 mg QAM PO 11/20/17 09:00 12/20/17 08:59 11/25/17 07:55 1 MG Gabapentin (Neurontin Cap) 100 mg TID PO 11/19/17 14:00 12/19/17 13:59 Future Hold 11/21/17 19:43 100 MG Magnesium Oxide (Mag-Ox Tab) 400 mg BID PO 11/19/17 21:00 12/19/17 20:59 11/25/17 07:55 400 MG Oxycodone/ Acetaminophen (Percocet 5-325mg Tab) 1 tab Q6H PRN PO 11/19/17 10:15 12/03/17 10:14 11/25/17 12:37 1 TAB Ranitidine HCl (zANTac TAB) 150 mg QAM PO 11/20/17 09:00 12/20/17 08:59 11/25/17 07:55 150 MG Sertraline HCl (Zoloft Tab) 50 mg QAM PO 11/20/17 09:00 12/20/17 08:59 11/25/17 07:55 50 MG Ferrous Sulfate (Feosol Tab) 325 mg DAILY PO 11/20/17 09:00 12/20/17 08:59 11/25/17 07:55 325 MG Miscellaneous (Iv Fluids Completed) 1 ea PRN PRN N/A 11/19/17 12:00 11/19/18 11:59 Lorazepam (Ativan Tab) 1 mg ONE PRN PO 11/19/17 13:00 Enteral Nutritional Formula (Boost) 1 can BIDM PO 11/19/17 17:45 12/19/17 17:44 11/25/17 07:52 1 CAN Miscellaneous Information (Consult) 1 ea UD PRN N/A 11/19/17 22:15 12/19/17 22:14 Piperacillin Sod/ Tazobactam Sod 3.375 gm/Dextrose 115 ml @ 28.75 mls/ hr Q8H IV 11/20/17 04:00 11/30/17 03:59 11/25/17 07:57 28.75 MLS/HR Thiamine HCl 100 mg/Syringe 10 ml @ 2 mls/min DAILY IV 11/22/17 09:00 12/22/17 08:59 11/25/17 08:01 2 MLS/MIN Lorazepam (Ativan Tab) 1 mg ONE PRN PO 11/21/17 20:15 Morphine Sulfate (MoRPHine SULFATE INJ) If PO analgesic is orde... Q2H PRN IV 11/24/17 18:30 12/08/17 18:29 11/24/17 23:15 2 MG Ondansetron HCl (Zofran Inj) 4 mg Q6H PRN IV 11/24/17 18:30 12/24/17 18:29 Enoxaparin Sodium (Lovenox Inj) 40 mg Q12H SQ 11/25/17 08:00 12/25/17 07:59 11/25/17 07:54 40 MG Morphine Sulfate (MoRPHine SULFATE INJ) If PO analgesic is orde... Q2H PRN IV 11/24/17 19:45 12/08/17 19:44 Miscellaneous Information (Icu Protocol For Hyperglycemia) 1 ea PRN PRN N/A 11/25/17 10:00 11/27/17 09:59
[2017-11-25] MEDS: ATORVASTATIN 40 MG TAB PO SCH (18:14)
[2017-11-26] MEDS: OXYCODONE/ACETAMINOPHEN 5-325 TAB PO PRN ×3 (03:38→17:57)
--- NOTE | 2017-11-26 05:43 | Clinical Documentation Query ---
ARON Wilson : CLINICAL DOCUMENTATION QUERY Patient is a 72 year old male who underwent right SFA endarterectomy with bovine patch angioplasty, RFA to RPA in situ bypass on 11/24. Documentation includes malnutrition. Patient has lost 19.3 Kg since 12/12/16. This represents 23.3% of patients initial body weight over this interval. In your clinical opinion is this patient being managed for: ( ) Severe protein-calorie malnutrition ( ) Not Agree ( ) Other explanation of clinical findings (Please Explain) ( ) Unable to determine (Please Define) ( ) Need to Discuss The medical record reflects the following clinical findings, treatment, and risk factors. Clinical Indicators: As above. Patient reports occasional difficulty swallowing, estimated 50-75% of meal intake Treatment: I/O, daily weights, Boost supplementation, sanitizer consultation, MVI Risk Factors: Age, alcohol consumption Please clarify and document your clinical opinion in the progress notes and discharge summary. Terms such as "probable", "suspected", "likely", "questionable", "possible", or "still to be ruled out" are acceptable. IF IN AGREEMENT, YOU MUST DOCUMENT ABOVE DIAGNOSTIC STATEMENT IN DAILY PROGRESS NOTES AND DISCHARGE SUMMARY. This document is not part of the patient's record. Thank You, Hilton Steele, RN [phone]
[2017-11-26 07:40] VITALS: BP 112/68; PULSE 74; TEMP 36.7; O2SAT 98
[2017-11-26 07:46] LABS: HEMATOCRIT 24.7 % (42-52); HEMOGLOBIN 8.1 g/dL (14.0-18.0); MEAN CELL VOLUME 93.9 fL (80-100); MEAN CORPUSCULAR HEMOGLOBIN 30.8 pg (25-34); MEAN CORPUSCULAR HGB CONC 32.8 g/dl (32-36); MEAN PLATELET VOLUME 9.8 fL (7.4-10.4); PLATELET COUNT 211 K/uL (130-400); RED CELL DISTRIBUTION WIDTH CV 16.5 % (11.5-14.5); RED CELL DISTRIBUTION WIDTH SD 56.7 fL (36.4-46.3); WHITE BLOOD COUNT 9.33 K/uL (4.8-10.8)
[2017-11-26] MEDS: FERROUS SULFATE 325 MG TAB PO SCH (08:06)
[2017-11-26] MEDS: SERTRALINE HCL 50 MG TAB PO SCH (08:06)
[2017-11-26] MEDS: RANITIDINE HCL 150 MG TAB PO SCH (08:06)
[2017-11-26] MEDS: CALCIUM 600MG + VIT D 400 IU TAB PO SCH ×2 (08:06→19:56)
[2017-11-26] MEDS: MAGNESIUM OXIDE 400 MG TAB PO SCH ×2 (08:07→19:56)
[2017-11-26] MEDS: CYANOCOBALAMIN 500 MCG TAB (VIT B-12) PO SCH (08:07)
[2017-11-26] MEDS: ATORVASTATIN 40 MG TAB PO SCH (08:07)
[2017-11-26] MEDS: ENOXAPARIN 40 MG/0.4 ML SYR SQ SCH ×2 (08:08→19:58)
[2017-11-26] MEDS: BOOST VANILLA PO SCH ×2 (08:11→17:57)
[2017-11-26] MEDS: PIPERACILL/TAZOBAC IV 3.375 GM in DEXTROSE 5% 100ML IV SCH ×2 (08:11→15:58)
[2017-11-26] MEDS: THIAMINE HCL INJ 100 MG in SYRINGE 9 ML IV SCH (08:13)
[2017-11-26 08:17] LABS: CALCIUM 8.2 mg/dl (8.5-10.1); CREATININE 1.13 mg/dl (0.60-1.40); POTASSIUM 4.3 mmol/L (3.5-5.1)
[2017-11-26 09:04] VITALS: O2SAT 98
--- NOTE | 2017-11-26 10:38 | Progress Note ---
Progress Note Date of Service: Nov 26, 2017. Subjective 72 yo m with multiple medical problems, POD # 2 after undergoing RLE fem- peroneal bypass with R SFA endart with bovine patch, seen in f/u today. Pt states pain in RLE at incisions and some pain with ambulation/movement. Denies any other new complaints. Problem List Medical Problems: (1) Change in mental status Status: Acute (2) Closed fracture of neck of left humerus Status: Acute (3) Dehydration Status: Acute (4) Dehydration Status: Acute (5) Dementia Status: Acute (6) Gangrene of toe Status: Acute (7) History of alcohol abuse Status: Chronic (8) Leukocytosis Status: Acute (9) Multiple contusions Status: Acute (10) STEMI (ST elevation myocardial infarction) Status: Acute (11) STEMI (ST elevation myocardial infarction) Status: Acute (12) UTI (urinary tract infection) Status: Acute (13) Wound of abdomen Status: Acute Objective Vital Signs Vital Signs Past 12 Hours Date Time Temp Pulse Resp B/P (MAP) Pulse Ox O2 Delivery O2 Flow Rate FiO2 11/26/17 09:04 98 Room Air 11/26/17 07:50 Room Air 11/26/17 07:40 36.7 74 20 112/68 (83) 98 Room Air 11/25/17 23:55 Room Air Exam CONST: A&O x3, NAD, thin, chronically ill appearing male EXT: RLE incisions C/D/I with ritesh. + tenderness near incisions. + excellent pulse palpable in RLE bypass graft. + peroneal signal distally. + RLE edema. RLE great toe amp site and distal 2nd toe continue with dry gangrene and tenderness. LLE 1st and second toe amp site healing well. Laboratory and Microbiology Results Past 24 Hours Test 11/25/17 11:17 11/25/17 11:58 11/25/17 20:34 11/26/17 07:20 Range/Units Bedside Glucose 113 70-99 mg/dl Hemoglobin 9.0 9.0 8.1 14.0-18.0 g/dL Hematocrit 25.9 26.0 24.7 42-52 % White Blood Count 9.33 4.8-10.8 K/uL Red Blood Count 2.63 4.7-6.1 M/uL Mean Corpuscular Volume 93.9 80-100 fL Mean Corpuscular Hemoglobin 30.8 25-34 pg Mean Corpuscular Hemoglobin Concent 32.8 32-36 g/dl RDW Standard Deviation 56.7 36.4-46.3 fL RDW Coefficient of Variation 16.5 11.5-14.5 % Platelet Count 211 130-400 K/uL Mean Platelet Volume 9.8 7.4-10.4 fL Sodium Level 136 136-145 mmol/L Potassium Level 4.3 3.5-5.1 mmol/L Chloride Level 103 98-107 mmol/L Carbon Dioxide Level 26 21-32 mmol/L Anion Gap 7.0 3-11 mmol/L Blood Urea Nitrogen 6 7-18 mg/dl Creatinine 1.13 0.60-1.40 mg/dl Est Creatinine Clear Calc Drug Dose 54.0 ml/min Estimated GFR () 75.4 Estimated GFR (Non- 65.0 BUN/Creatinine Ratio 5.4 10-20 Random Glucose 89 70-99 mg/dl Calcium Level 8.2 8.5-10.1 mg/dl ASSESSMENT and PLAN: s/p RLE fem-peroneal in situ bypass and R SFA endarterectomy with bovine patch Severe PAD with gangrene Pt doing well postop. Will continue to monitor. May require debridement of RLE gangrene in future. Likely d/c to rehab.
--- NOTE | 2017-11-26 12:33 | Clinical Documentation Query ---
ARON Wilson : CLINICAL DOCUMENTATION QUERY Documentation for BMI, Pressure Ulcers, Coma, Stroke Scale Official Guidelines: General Guidelines 14. Documentation for BMI, Depth of Non-pressure ulcers, Pressure Ulcer Stages, Coma Scale, and NIH Stroke Scale For the Body Mass Index (BMI), depth of non-pressure chronic ulcers, pressure ulcer stage, coma scale, and NIH stroke scale (NIHSS) codes, code assignment may be based on medical record documentation from clinicians who are not the patient's provider (i.e., physician or other qualified healthcare practitioner legally accountable for establishing the patient's diagnosis), since this information is typically documented by other clinicians involved in the care of the patient (e.g., a dietitian often documents the BMI, a nurse often documents the pressure ulcer stages, and an emergency emergency medicine medical director often documents the coma scale). However, the associated diagnosis (such as overweight, obesity, acute stroke, or pressure ulcer) must be documented by the patient's provider. If there is conflicting medical record documentation, either from the same clinician or different clinicians, the patient's attending provider should be queried for clarification. The BMI, coma scale, and NIHSS codes codes should only be reported as secondary diagnoses. In your clinical opinion is this patient being managed for: ( ) Body mass index (BMI) 18.5 kg/m*m, underweight ( ) Not Agree ( ) Other explanation of clinical findings (Please Explain) ( ) Unable to determine (Please Define) ( ) Need to Discuss The medical record reflects the following clinical findings, treatment, and risk factors. Clinical Indicators: As above Treatment: Regular diet, Boost supplementation, I/O, weights, serial chemistries, mineral/electrolyte supplementation Risk Factors: Age, alcohol abuse Please clarify and document your clinical opinion in the progress notes and discharge summary. Terms such as "probable", "suspected", "likely", "questionable", "possible", or "still to be ruled out" are acceptable. IF IN AGREEMENT, YOU MUST DOCUMENT ABOVE DIAGNOSTIC STATEMENT IN DAILY PROGRESS NOTES AND DISCHARGE SUMMARY. This document is not part of the patient's record. Thank You, Hilton Steele, ZAIRA [phone]
[2017-11-26 15:15] VITALS: O2SAT 99
[2017-11-26 15:34] VITALS: BP 109/43; PULSE 70; TEMP 37; O2SAT 99
--- NOTE | 2017-11-26 16:05 | Progress Note ---
Medicine Progress Note Date & Time of Visit: Nov 26, 2017 at 16:00. Subjective Pt was seen and examined Lying in bed with no distress Pt said that he feels fine He said that he does not have any pain He said that he would rather go home instead going to rehab Denies any chest pain, palpitation, dizziness and SOB Objective Last 8 Hrs Date Time Temp Pulse Resp B/P (MAP) Pulse Ox O2 Delivery O2 Flow Rate FiO2 11/26/17 15:34 37.0 70 18 109/43 (65) 99 Room Air 11/26/17 09:04 98 Room Air Physical Exam: General- No acute distress Head- atraumatic Eyes- PERRL, EOMI ENT- oropharynx clear Neck- supple, no JVD Lungs- No wheezing Heart- regular rhythm Abdomen- normal bowel sounds, soft Extremities- no calf tenderness, right foot wrapped with dressing Neuro- alert, oriented x 3; PERRL, EOMI; no facial palsy Skin- warm & dry Laboratory Results: Last 24 Hours Test 11/25/17 20:34 11/26/17 07:20 11/26/17 16:00 Hemoglobin 9.0 g/dL 8.1 g/dL Hematocrit 26.0 % 24.7 % White Blood Count 9.33 K/uL Red Blood Count 2.63 M/uL Mean Corpuscular Volume 93.9 fL Mean Corpuscular Hemoglobin 30.8 pg Mean Corpuscular Hemoglobin Concent 32.8 g/dl RDW Standard Deviation 56.7 fL RDW Coefficient of Variation 16.5 % Platelet Count 211 K/uL Mean Platelet Volume 9.8 fL Sodium Level 136 mmol/L Potassium Level 4.3 mmol/L Chloride Level 103 mmol/L Carbon Dioxide Level 26 mmol/L Anion Gap 7.0 mmol/L Blood Urea Nitrogen 6 mg/dl Creatinine 1.13 mg/dl Est Creatinine Clear Calc Drug Dose 54.0 ml/min Estimated GFR () 75.4 Estimated GFR (Non- 65.0 BUN/Creatinine Ratio 5.4 Random Glucose 89 mg/dl Calcium Level 8.2 mg/dl Assessment & Plan PERIPHERAL VASCULAR DISEASE Continue IV piperacillin for gangrene of right foot. Coumadin was discontinued due to upcoming procedure IV heparin discontinued S/P day#2 right superficial femoral endarterectomy with bovine patch graft, Right femoral to peroneal in situ bypass graft by dr. Hussein Continue pain control Consider rehab ANEMIA ACUTE BLOOD LOSS POST OP Hgb dropped to 6.7 Received 2 unit PRBC today Hgb dropped from 9 to 8.1 Check hgb at 1600 Continue monitor H/H SUPRA THERAPEUTIC INR Elevated INR 4.9 on admission. Received Vit K Coumadin has been held Will resume Coumadin once hgb stable CORONARY ARTERY DISEASE No anginal symptoms HYPERTENSION Blood pressures in the low side Monitor BP COPD Respiratory status stable. CONFUSION Back to baseline ALCOHOL CONSUMPTION No signs of alcohol withdrawn. Continue gabapentin for alcohol withdrawn protocol VTE PROPHYLAXIS D/C IV heparin Will resume Coumadin once bleeding stable DISPOSITION Possible placement to rehab Consultants: vascular Current Inpatient Medications: Current Inpatient Medications Medications (Trade) Dose Ordered Sig/Nieves Route Start Time Stop Time Status Last Admin Dose Admin Acetaminophen (Tylenol Tab) 650 mg Q4H PRN PO 11/19/17 10:00 12/19/17 09:59 11/23/17 04:55 650 MG Polyethylene (Miralax Powder Packet) 17 gm DAILY PRN PO 11/19/17 10:00 12/19/17 09:59 Ondansetron HCl (Zofran Inj) 4 mg Q6H PRN IV 11/19/17 10:00 12/19/17 09:59 Atorvastatin Calcium (Lipitor Tab) 80 mg QDD PO 11/19/17 17:45 12/19/17 17:59 11/26/17 08:07 80 MG Calcium/Vitamin D (Caltrate Plus Tab) 1 tab BID PO 11/19/17 21:00 12/19/17 20:59 11/26/17 08:06 1 TAB Cyanocobalamin (Vitamin B-12 Tab) 1,000 mcg QAM PO 11/20/17 09:00 12/20/17 08:59 11/26/17 08:07 1,000 MCG Folic Acid (Folvite Tab) 1 mg QAM PO 11/20/17 09:00 12/20/17 08:59 11/26/17 08:06 1 MG Gabapentin (Neurontin Cap) 100 mg TID PO 11/19/17 14:00 12/19/17 13:59 Future Hold 11/21/17 19:43 100 MG Magnesium Oxide (Mag-Ox Tab) 400 mg BID PO 11/19/17 21:00 12/19/17 20:59 11/26/17 08:07 400 MG Oxycodone/ Acetaminophen (Percocet 5-325mg Tab) 1 tab Q6H PRN PO 11/19/17 10:15 12/03/17 10:14 11/26/17 10:02 1 TAB Ranitidine HCl (zANTac TAB) 150 mg QAM PO 11/20/17 09:00 12/20/17 08:59 11/26/17 08:06 150 MG Sertraline HCl (Zoloft Tab) 50 mg QAM PO 11/20/17 09:00 12/20/17 08:59 11/26/17 08:06 50 MG Ferrous Sulfate (Feosol Tab) 325 mg DAILY PO 11/20/17 09:00 12/20/17 08:59 11/26/17 08:06 325 MG Miscellaneous (Iv Fluids Completed) 1 ea PRN PRN N/A 11/19/17 12:00 11/19/18 11:59 Lorazepam (Ativan Tab) 1 mg ONE PRN PO 11/19/17 13:00 Enteral Nutritional Formula (Boost) 1 can BIDM PO 11/19/17 17:45 12/19/17 17:44 11/26/17 08:11 1 CAN Miscellaneous Information (Consult) 1 ea UD PRN N/A 11/19/17 22:15 12/19/17 22:14 Piperacillin Sod/ Tazobactam Sod 3.375 gm/Dextrose 115 ml @ 28.75 mls/ hr Q8H IV 11/20/17 04:00 11/30/17 03:59 11/26/17 08:11 28.75 MLS/HR Thiamine HCl 100 mg/Syringe 10 ml @ 2 mls/min DAILY IV 11/22/17 09:00 12/22/17 08:59 11/26/17 08:13 2 MLS/MIN Lorazepam (Ativan Tab) 1 mg ONE PRN PO 11/21/17 20:15 Morphine Sulfate (MoRPHine SULFATE INJ) If PO analgesic is orde... Q2H PRN IV 11/24/17 18:30 12/08/17 18:29 11/24/17 23:15 2 MG Ondansetron HCl (Zofran Inj) 4 mg Q6H PRN IV 11/24/17 18:30 12/24/17 18:29 Enoxaparin Sodium (Lovenox Inj) 40 mg Q12H SQ 11/25/17 08:00 12/25/17 07:59 11/26/17 08:08 40 MG Morphine Sulfate (MoRPHine SULFATE INJ) If PO analgesic is orde... Q2H PRN IV 11/24/17 19:45 12/08/17 19:44
[2017-11-26 16:14] LABS: HEMATOCRIT 27.2 % (42-52); HEMOGLOBIN 9.1 g/dL (14.0-18.0)
[2017-11-26 23:06] VITALS: BP 122/64; PULSE 79; TEMP 36.7; O2SAT 96
[2017-11-27] MEDS: PIPERACILL/TAZOBAC IV 3.375 GM in DEXTROSE 5% 100ML IV SCH ×3 (00:37→15:59)
[2017-11-27 07:20] VITALS: BP 99/55; PULSE 84; TEMP 36.7; O2SAT 96
[2017-11-27] MEDS: ENOXAPARIN 40 MG/0.4 ML SYR SQ SCH ×2 (08:05→20:22)
[2017-11-27] MEDS: OXYCODONE/ACETAMINOPHEN 5-325 TAB PO PRN ×2 (08:21→13:46)
[2017-11-27] MEDS: SERTRALINE HCL 50 MG TAB PO SCH (08:30)
[2017-11-27] MEDS: CALCIUM 600MG + VIT D 400 IU TAB PO SCH ×2 (08:31→20:23)
[2017-11-27] MEDS: MAGNESIUM OXIDE 400 MG TAB PO SCH ×2 (08:31→20:22)
[2017-11-27] MEDS: CYANOCOBALAMIN 500 MCG TAB (VIT B-12) PO SCH (08:31)
[2017-11-27] MEDS: FERROUS SULFATE 325 MG TAB PO SCH (08:31)
[2017-11-27] MEDS: RANITIDINE HCL 150 MG TAB PO SCH (08:31)
[2017-11-27] MEDS: THIAMINE HCL INJ 100 MG in SYRINGE 9 ML IV SCH (08:34)
[2017-11-27] MEDS: BOOST VANILLA PO SCH ×2 (08:38→17:55)
[2017-11-27 10:20] LABS: HEMATOCRIT 26.3 % (42-52); HEMOGLOBIN 8.9 g/dL (14.0-18.0); MEAN CELL VOLUME 93.3 fL (80-100); MEAN CORPUSCULAR HEMOGLOBIN 31.6 pg (25-34); MEAN CORPUSCULAR HGB CONC 33.8 g/dl (32-36); MEAN PLATELET VOLUME 9.3 fL (7.4-10.4); PLATELET COUNT 264 K/uL (130-400); RED CELL DISTRIBUTION WIDTH CV 16.3 % (11.5-14.5); RED CELL DISTRIBUTION WIDTH SD 55.6 fL (36.4-46.3); WHITE BLOOD COUNT 9.96 K/uL (4.8-10.8)
[2017-11-27 10:51] LABS: CREATININE 1.07 mg/dl (0.60-1.40)
[2017-11-27 15:49] VITALS: BP 93/46; PULSE 81; TEMP 37.1; O2SAT 96
[2017-11-27] MEDS ORDERED: WARFARIN SOD 2.5 MG TAB PO ONE (16:21)
--- NOTE | 2017-11-27 16:42 | Progress Note ---
Medicine Progress Note Date & Time of Visit: Nov 27, 2017 at 16:24. Subjective Pt was seen and examined Lying in bed with no distress Pt said that he feels fine He said that pain under control Denies any chest pain, palpitation and SOB Objective Last 8 Hrs Date Time Temp Pulse Resp B/P (MAP) Pulse Ox O2 Delivery O2 Flow Rate FiO2 11/27/17 15:49 37.1 81 16 93/46 (62) 96 Room Air Physical Exam: General- No acute distress Head- atraumatic Eyes- PERRL, EOMI ENT- oropharynx clear Neck- supple, no JVD Lungs- No wheezing Heart- regular rhythm Abdomen- normal bowel sounds, soft Extremities- no calf tenderness, RLE: 1st toe has dressing on and distal 2nd toe with dry gangrene and tenderness. 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 Neuro- alert, oriented x 3; PERRL, EOMI; no facial palsy Skin- warm & dry Laboratory Results: Last 24 Hours Test 11/27/17 10:04 White Blood Count 9.96 K/uL Red Blood Count 2.82 M/uL Hemoglobin 8.9 g/dL Hematocrit 26.3 % Mean Corpuscular Volume 93.3 fL Mean Corpuscular Hemoglobin 31.6 pg Mean Corpuscular Hemoglobin Concent 33.8 g/dl RDW Standard Deviation 55.6 fL RDW Coefficient of Variation 16.3 % Platelet Count 264 K/uL Mean Platelet Volume 9.3 fL Creatinine 1.07 mg/dl Est Creatinine Clear Calc Drug Dose 57.1 ml/min Estimated GFR () 80.5 Estimated GFR (Non- 69.5 Assessment & Plan PERIPHERAL VASCULAR DISEASE Continue IV piperacillin for gangrene of right foot. Coumadin was discontinued due to upcoming procedure IV heparin discontinued S/P day#3 right superficial femoral endarterectomy with bovine patch graft, Right femoral to peroneal in situ bypass graft by dr. Hussein On Lovenox 40mg BID Case discussed with dr. Hussein, may consider for further debridement Ok by vascular to resume Coumadin Consider rehab once medically stable ANEMIA ACUTE BLOOD LOSS POST OP Hgb dropped to 6.7 Received 2 unit PRBC today Hgb 8.9 today Continue monitor h/h SUPRA THERAPEUTIC INR Elevated INR 4.9 on admission. Received Vit K Coumadin has been held Resume Coumadin today CORONARY ARTERY DISEASE No anginal symptoms HYPERTENSION Blood pressures in the low side Monitor BP COPD Respiratory status stable. CONFUSION Back to baseline ALCOHOL CONSUMPTION No signs of alcohol withdrawn. Continue gabapentin for alcohol withdrawn protocol VTE PROPHYLAXIS D/C IV heparin Will resume Coumadin once bleeding stable DISPOSITION Possible placement to rehab Consultants: vascular Current Inpatient Medications: Current Inpatient Medications Medications (Trade) Dose Ordered Sig/Nieves Route Start Time Stop Time Status Last Admin Dose Admin Acetaminophen (Tylenol Tab) 650 mg Q4H PRN PO 11/19/17 10:00 12/19/17 09:59 11/23/17 04:55 650 MG Polyethylene (Miralax Powder Packet) 17 gm DAILY PRN PO 11/19/17 10:00 12/19/17 09:59 Ondansetron HCl (Zofran Inj) 4 mg Q6H PRN IV 11/19/17 10:00 12/19/17 09:59 Atorvastatin Calcium (Lipitor Tab) 80 mg QDD PO 11/19/17 17:45 12/19/17 17:59 11/26/17 08:07 80 MG Calcium/Vitamin D (Caltrate Plus Tab) 1 tab BID PO 11/19/17 21:00 12/19/17 20:59 11/27/17 08:31 1 TAB Cyanocobalamin (Vitamin B-12 Tab) 1,000 mcg QAM PO 11/20/17 09:00 12/20/17 08:59 11/27/17 08:31 1,000 MCG Folic Acid (Folvite Tab) 1 mg QAM PO 11/20/17 09:00 12/20/17 08:59 11/27/17 08:31 1 MG Gabapentin (Neurontin Cap) 100 mg TID PO 11/19/17 14:00 12/19/17 13:59 Future Hold 11/21/17 19:43 100 MG Magnesium Oxide (Mag-Ox Tab) 400 mg BID PO 11/19/17 21:00 12/19/17 20:59 11/27/17 08:31 400 MG Oxycodone/ Acetaminophen (Percocet 5-325mg Tab) 1 tab Q6H PRN PO 11/19/17 10:15 12/03/17 10:14 11/27/17 13:46 1 TAB Ranitidine HCl (zANTac TAB) 150 mg QAM PO 11/20/17 09:00 12/20/17 08:59 11/27/17 08:31 150 MG Sertraline HCl (Zoloft Tab) 50 mg QAM PO 11/20/17 09:00 12/20/17 08:59 11/27/17 08:30 50 MG Ferrous Sulfate (Feosol Tab) 325 mg DAILY PO 11/20/17 09:00 12/20/17 08:59 11/27/17 08:31 325 MG Miscellaneous (Iv Fluids Completed) 1 ea PRN PRN N/A 11/19/17 12:00 11/19/18 11:59 Lorazepam (Ativan Tab) 1 mg ONE PRN PO 11/19/17 13:00 Enteral Nutritional Formula (Boost) 1 can BIDM PO 11/19/17 17:45 12/19/17 17:44 11/27/17 08:38 1 CAN Miscellaneous Information (Consult) 1 ea UD PRN N/A 11/19/17 22:15 12/19/17 22:14 Piperacillin Sod/ Tazobactam Sod 3.375 gm/Dextrose 115 ml @ 28.75 mls/ hr Q8H IV 11/20/17 04:00 11/30/17 03:59 11/27/17 15:59 28.75 MLS/HR Thiamine HCl 100 mg/Syringe 10 ml @ 2 mls/min DAILY IV 11/22/17 09:00 12/22/17 08:59 11/26/17 08:13 2 MLS/MIN Lorazepam (Ativan Tab) 1 mg ONE PRN PO 11/21/17 20:15 Morphine Sulfate (MoRPHine SULFATE INJ) If PO analgesic is orde... Q2H PRN IV 11/24/17 18:30 12/08/17 18:29 11/24/17 23:15 2 MG Ondansetron HCl (Zofran Inj) 4 mg Q6H PRN IV 11/24/17 18:30 12/24/17 18:29 Enoxaparin Sodium (Lovenox Inj) 40 mg Q12H SQ 11/25/17 08:00 12/25/17 07:59 11/27/17 08:05 40 MG Morphine Sulfate (MoRPHine SULFATE INJ) If PO analgesic is orde... Q2H PRN IV 11/24/17 19:45 12/08/17 19:44
[2017-11-27] MEDS: ATORVASTATIN 40 MG TAB PO SCH (17:56)
[2017-11-27 23:03] VITALS: BP 97/53; PULSE 76; TEMP 37.1; O2SAT 95
[2017-11-28] MEDS: OXYCODONE/ACETAMINOPHEN 5-325 TAB PO PRN ×2 (00:06→09:21)
[2017-11-28] MEDS: PIPERACILL/TAZOBAC IV 3.375 GM in DEXTROSE 5% 100ML IV SCH ×3 (00:07→16:00)
[2017-11-28 07:14] VITALS: BP 116/63; PULSE 80; TEMP 36.3; O2SAT 97
[2017-11-28] MEDS: THIAMINE HCL INJ 100 MG in SYRINGE 9 ML IV SCH ×2 (09:00→09:12)
[2017-11-28] MEDS: CALCIUM 600MG + VIT D 400 IU TAB PO SCH ×2 (09:12→19:35)
[2017-11-28] MEDS: BOOST VANILLA PO SCH ×2 (09:12→18:07)
[2017-11-28] MEDS: FERROUS SULFATE 325 MG TAB PO SCH (09:14)
[2017-11-28] MEDS: MAGNESIUM OXIDE 400 MG TAB PO SCH ×2 (09:16→19:35)
[2017-11-28] MEDS: CYANOCOBALAMIN 500 MCG TAB (VIT B-12) PO SCH (09:17)
[2017-11-28] MEDS: RANITIDINE HCL 150 MG TAB PO SCH (09:19)
[2017-11-28] MEDS: SERTRALINE HCL 50 MG TAB PO SCH (09:19)
[2017-11-28] MEDS: ENOXAPARIN 40 MG/0.4 ML SYR SQ SCH ×3 (09:36→19:45)
[2017-11-28 10:28] LABS: HEMATOCRIT 27.9 % (42-52); HEMOGLOBIN 9.3 g/dL (14.0-18.0); MEAN CELL VOLUME 94.9 fL (80-100); MEAN CORPUSCULAR HEMOGLOBIN 31.6 pg (25-34); MEAN CORPUSCULAR HGB CONC 33.3 g/dl (32-36); MEAN PLATELET VOLUME 9.4 fL (7.4-10.4); PLATELET COUNT 320 K/uL (130-400); RED CELL DISTRIBUTION WIDTH CV 16.3 % (11.5-14.5); RED CELL DISTRIBUTION WIDTH SD 56.4 fL (36.4-46.3); WHITE BLOOD COUNT 8.06 K/uL (4.8-10.8)
[2017-11-28 15:21] VITALS: BP 125/72; PULSE 72; TEMP 36.8; O2SAT 98
[2017-11-28] MEDS: WARFARIN SOD 2.5 MG TAB PO SCH (16:00)
[2017-11-28] MEDS: ATORVASTATIN 40 MG TAB PO SCH (18:07)
--- NOTE | 2017-11-28 18:11 | Progress Note ---
Medicine Progress Note Date & Time of Visit: Nov 28, 2017 at 18:07. Subjective Pt was seen and examined Lying in bed with no distress Pt said that he feels fine denies any chest pain, palpitation and sob Objective Last 8 Hrs Date Time Temp Pulse Resp B/P (MAP) Pulse Ox O2 Delivery O2 Flow Rate FiO2 11/28/17 15:35 Room Air 11/28/17 15:21 36.8 72 16 125/72 (89) 98 Room Air Physical Exam: General- No acute distress Head- atraumatic Eyes- PERRL, EOMI ENT- oropharynx clear Neck- supple, no JVD Lungs- No wheezing Heart- regular rhythm Abdomen- normal bowel sounds, soft Extremities- no calf tenderness, RLE: 1st toe has dressing on and distal 2nd toe with dry gangrene and tenderness. 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 Neuro- alert, oriented x 3; PERRL, EOMI; no facial palsy Skin- warm & dry Laboratory Results: Last 24 Hours Test 11/28/17 10:08 White Blood Count 8.06 K/uL Red Blood Count 2.94 M/uL Hemoglobin 9.3 g/dL Hematocrit 27.9 % Mean Corpuscular Volume 94.9 fL Mean Corpuscular Hemoglobin 31.6 pg Mean Corpuscular Hemoglobin Concent 33.3 g/dl RDW Standard Deviation 56.4 fL RDW Coefficient of Variation 16.3 % Platelet Count 320 K/uL Mean Platelet Volume 9.4 fL Prothrombin Time 10.4 SECONDS Prothromb Time International Ratio 1.0 Assessment & Plan PERIPHERAL VASCULAR DISEASE Continue IV piperacillin for gangrene of right foot. Coumadin was discontinued due to upcoming procedure IV heparin discontinued S/P day#3 right superficial femoral endarterectomy with bovine patch graft, Right femoral to peroneal in situ bypass graft by dr. Hussein On Lovenox 40mg BID Case discussed with dr. Hussein, may consider for further debridement Ok by vascular to resume Coumadin Will D/C IV zosyn Consider rehab once medically stable ANEMIA ACUTE BLOOD LOSS POST OP Hgb dropped to 6.7 Received 2 unit PRBC today Hgb 9.3 today Continue monitor h/h SUPRA THERAPEUTIC INR Elevated INR 4.9 on admission. Received Vit K Coumadin was on hold continue Coumadin Monitor INR CORONARY ARTERY DISEASE No anginal symptoms HYPERTENSION Blood pressures in the low side Monitor BP COPD Respiratory status stable. CONFUSION Back to baseline ALCOHOL CONSUMPTION No signs of alcohol withdrawn. Continue gabapentin for alcohol withdrawn protocol VTE PROPHYLAXIS Lovenox 40mg BID On Coumadin once bleeding stable DISPOSITION Possible placement to rehab Consultants: vascular Current Inpatient Medications: Current Inpatient Medications Medications (Trade) Dose Ordered Sig/Nieves Route Start Time Stop Time Status Last Admin Dose Admin Acetaminophen (Tylenol Tab) 650 mg Q4H PRN PO 11/19/17 10:00 12/19/17 09:59 11/23/17 04:55 650 MG Polyethylene (Miralax Powder Packet) 17 gm DAILY PRN PO 11/19/17 10:00 12/19/17 09:59 Ondansetron HCl (Zofran Inj) 4 mg Q6H PRN IV 11/19/17 10:00 12/19/17 09:59 Atorvastatin Calcium (Lipitor Tab) 80 mg QDD PO 11/19/17 17:45 12/19/17 17:59 11/27/17 17:56 80 MG Calcium/Vitamin D (Caltrate Plus Tab) 1 tab BID PO 11/19/17 21:00 12/19/17 20:59 11/28/17 09:12 1 TAB Cyanocobalamin (Vitamin B-12 Tab) 1,000 mcg QAM PO 11/20/17 09:00 12/20/17 08:59 11/28/17 09:17 1,000 MCG Folic Acid (Folvite Tab) 1 mg QAM PO 11/20/17 09:00 12/20/17 08:59 11/28/17 09:15 1 MG Gabapentin (Neurontin Cap) 100 mg TID PO 11/19/17 14:00 12/19/17 13:59 Future Hold 11/21/17 19:43 100 MG Magnesium Oxide (Mag-Ox Tab) 400 mg BID PO 11/19/17 21:00 12/19/17 20:59 11/28/17 09:16 400 MG Oxycodone/ Acetaminophen (Percocet 5-325mg Tab) 1 tab Q6H PRN PO 11/19/17 10:15 12/03/17 10:14 11/28/17 09:21 1 TAB Ranitidine HCl (zANTac TAB) 150 mg QAM PO 11/20/17 09:00 12/20/17 08:59 11/28/17 09:19 150 MG Sertraline HCl (Zoloft Tab) 50 mg QAM PO 11/20/17 09:00 12/20/17 08:59 11/28/17 09:19 50 MG Ferrous Sulfate (Feosol Tab) 325 mg DAILY PO 11/20/17 09:00 12/20/17 08:59 11/28/17 09:14 325 MG Miscellaneous (Iv Fluids Completed) 1 ea PRN PRN N/A 11/19/17 12:00 11/19/18 11:59 Lorazepam (Ativan Tab) 1 mg ONE PRN PO 11/19/17 13:00 Enteral Nutritional Formula (Boost) 1 can BIDM PO 11/19/17 17:45 12/19/17 17:44 11/28/17 09:12 1 CAN Miscellaneous Information (Consult) 1 ea UD PRN N/A 11/19/17 22:15 12/19/17 22:14 Piperacillin Sod/ Tazobactam Sod 3.375 gm/Dextrose 115 ml @ 28.75 mls/ hr Q8H IV 11/20/17 04:00 11/30/17 03:59 11/28/17 16:00 28.75 MLS/HR Thiamine HCl 100 mg/Syringe 10 ml @ 2 mls/min DAILY IV 11/22/17 09:00 12/22/17 08:59 11/26/17 08:13 2 MLS/MIN Lorazepam (Ativan Tab) 1 mg ONE PRN PO 11/21/17 20:15 Morphine Sulfate (MoRPHine SULFATE INJ) If PO analgesic is orde... Q2H PRN IV 11/24/17 18:30 12/08/17 18:29 11/24/17 23:15 2 MG Ondansetron HCl (Zofran Inj) 4 mg Q6H PRN IV 11/24/17 18:30 12/24/17 18:29 Enoxaparin Sodium (Lovenox Inj) 40 mg Q12H SQ 11/25/17 08:00 12/25/17 07:59 11/28/17 09:36 40 MG Morphine Sulfate (MoRPHine SULFATE INJ) If PO analgesic is orde... Q2H PRN IV 11/24/17 19:45 12/08/17 19:44 Warfarin Sodium (Coumadin Tab) 2.5 mg DAILY@16 PO 11/28/17 16:00 12/28/17 15:59 11/28/17 16:00 2.5 MG
[2017-11-28 23:05] VITALS: BP 120/61; PULSE 74; TEMP 36.3; O2SAT 94
[2017-11-28 23:40] VITALS: O2SAT 94
[2017-11-29] MEDS: PIPERACILL/TAZOBAC IV 3.375 GM in DEXTROSE 5% 100ML IV SCH ×3 (00:16→15:33)
[2017-11-29 07:29] VITALS: BP 140/83; PULSE 79; TEMP 36.6; O2SAT 97
[2017-11-29] MEDS: BOOST VANILLA PO SCH ×2 (08:59→18:10)
[2017-11-29] MEDS: OXYCODONE/ACETAMINOPHEN 5-325 TAB PO PRN ×2 (09:00→15:33)
[2017-11-29] MEDS: ENOXAPARIN 40 MG/0.4 ML SYR SQ SCH ×2 (09:01→20:31)
[2017-11-29] MEDS: MAGNESIUM OXIDE 400 MG TAB PO SCH ×2 (09:03→20:31)
[2017-11-29] MEDS: CYANOCOBALAMIN 500 MCG TAB (VIT B-12) PO SCH (09:03)
[2017-11-29] MEDS: FERROUS SULFATE 325 MG TAB PO SCH (09:04)
[2017-11-29] MEDS: RANITIDINE HCL 150 MG TAB PO SCH (09:04)
[2017-11-29] MEDS: SERTRALINE HCL 50 MG TAB PO SCH (09:04)
[2017-11-29] MEDS: CALCIUM 600MG + VIT D 400 IU TAB PO SCH ×2 (09:04→20:31)
--- NOTE | 2017-11-29 09:06 | Progress Note ---
Progress Note Date of Service: Nov 29, 2017. Subjective 72 yo m with multiple medical problems, s/p RLE fem-peroneal in situ bypass, seen in f/u today. Pt states pain controlled with medications. Denies any other new complaints. Problem List Medical Problems: (1) Change in mental status Status: Acute (2) Closed fracture of neck of left humerus Status: Acute (3) Dehydration Status: Acute (4) Dehydration Status: Acute (5) Dementia Status: Acute (6) Gangrene of toe Status: Acute (7) History of alcohol abuse Status: Chronic (8) Leukocytosis Status: Acute (9) Multiple contusions Status: Acute (10) STEMI (ST elevation myocardial infarction) Status: Acute (11) STEMI (ST elevation myocardial infarction) Status: Acute (12) UTI (urinary tract infection) Status: Acute (13) Wound of abdomen Status: Acute Objective Vital Signs Vital Signs Past 12 Hours Date Time Temp Pulse Resp B/P (MAP) Pulse Ox O2 Delivery O2 Flow Rate FiO2 11/29/17 07:40 Room Air 11/29/17 07:29 36.6 79 18 140/83 (102) 97 Room Air 11/28/17 23:40 94 Room Air 11/28/17 23:05 36.3 74 16 120/61 (80) 94 Room Air Exam CONST: A&O x3, NAD, chronically ill appearing male EXT: RLE bypass excellent pulse, foot warm and pink except 1st toe amp site and distal 2nd toe which are black. toe amp site with purulence noted. Laboratory and Microbiology Results Past 24 Hours Test 11/28/17 10:08 11/29/17 06:03 Range/Units White Blood Count 8.06 4.8-10.8 K/uL Red Blood Count 2.94 4.7-6.1 M/uL Hemoglobin 9.3 14.0-18.0 g/dL Hematocrit 27.9 42-52 % Mean Corpuscular Volume 94.9 80-100 fL Mean Corpuscular Hemoglobin 31.6 25-34 pg Mean Corpuscular Hemoglobin Concent 33.3 32-36 g/dl RDW Standard Deviation 56.4 36.4-46.3 fL RDW Coefficient of Variation 16.3 11.5-14.5 % Platelet Count 320 130-400 K/uL Mean Platelet Volume 9.4 7.4-10.4 fL Prothrombin Time 10.4 10.2 9.0-12.0 SECONDS Prothromb Time International Ratio 1.0 1.0 0.9-1.1 ASSESSMENT and PLAN: s/p RLE fem- peroneal bypass severe pad with gangrene Pt also seen by Dr Hussein, recommends pt to have debridement of R foot in OR tomorrow. Pt agreeable. Otherwise, pt doing well pos top.
[2017-11-29] MEDS: THIAMINE HCL INJ 100 MG in SYRINGE 9 ML IV SCH (09:11)
--- NOTE | 2017-11-29 15:22 | Anesthesiology Progress Note ---
Pre-OP Anesthesia Assessment Date of Note Nov 29, 2017. Review patient information reviewed, chart reviewed, labs reviewed, acceptable for surgery Notes Elderly male scheduled for debridement of first and second toes right foot. PMH significant for DM, HTN, PVD, GERD, COPD, mild dementia. Also known severe CAD, s/p CABG/PTCA with EF 45-55%. Pt had right fem-distal bypass 11/24/17 under [facility] without problems. Has also tolerated debridement of foot wounds under MAC. I discussed MAC with him for planned procedure. He expressed understanding and signed informed consent. He should be NPO after midnight except for meds.
[2017-11-29] MEDS: WARFARIN SOD 2.5 MG TAB PO SCH (15:34)
[2017-11-29 16:16] VITALS: BP 124/64; PULSE 78; TEMP 36.6; O2SAT 99
--- NOTE | 2017-11-29 17:04 | Progress Note ---
Medicine Progress Note Date & Time of Visit: Nov 29, 2017 at 16:58. Subjective Pt was seen and examined Lying in bed with no distress Pt said that he feels fine Denies any chest pain, palpitation, dizziness and SOB Objective Last 8 Hrs Date Time Temp Pulse Resp B/P (MAP) Pulse Ox O2 Delivery O2 Flow Rate FiO2 11/29/17 16:16 36.6 78 18 124/64 (84) 99 Room Air Physical Exam: General- No acute distress Head- atraumatic Eyes- PERRL, EOMI ENT- oropharynx clear Neck- supple, no JVD Lungs- No wheezing Heart- regular rhythm Abdomen- normal bowel sounds, soft Extremities- no calf tenderness, RLE: 1st toe has dressing on and distal 2nd toe with dry gangrene and tenderness. 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 Neuro- alert, oriented x 3; PERRL, EOMI; no facial palsy Skin- warm & dry Laboratory Results: Last 24 Hours Test 11/29/17 06:03 Prothrombin Time 10.2 SECONDS Prothromb Time International Ratio 1.0 Assessment & Plan PERIPHERAL VASCULAR DISEASE Gangrene of toes in Right foot Continue IV piperacillin for gangrene of right foot. Coumadin was discontinued due to upcoming procedure IV heparin discontinued S/P day#3 right superficial femoral endarterectomy with bovine patch graft, Right femoral to peroneal in situ bypass graft by dr. Hussein On Lovenox 40mg BID Case discussed with dr. Hussein, may consider for further debridement Ok by vascular to resume Coumadin Plan to go to OR in am for debridement D/C IV Zosyn tomorrow after the debridement Will hold morning dose of Lovenox for the surgery NPO after midnight Consider rehab once medically stable ANEMIA ACUTE BLOOD LOSS POST OP Hgb dropped to 6.7 Received 2 unit PRBC today Hgb 9.3 today Continue monitor h/h SUPRA THERAPEUTIC INR Elevated INR 4.9 on admission. Received Vit K Coumadin was on hold continue Coumadin (INR 1.0) Monitor INR CORONARY ARTERY DISEASE No anginal symptoms HYPERTENSION Blood pressures in the low side Monitor BP COPD Respiratory status stable. CONFUSION Back to baseline ALCOHOL CONSUMPTION No signs of alcohol withdrawn. Continue gabapentin for alcohol withdrawn protocol VTE PROPHYLAXIS Lovenox 40mg BID On Coumadin (INR 1) DISPOSITION Plan to go to OR tomorrow for debridement Possible placement to rehab Consultants: vascular Current Inpatient Medications: Current Inpatient Medications Medications (Trade) Dose Ordered Sig/Nieves Route Start Time Stop Time Status Last Admin Dose Admin Acetaminophen (Tylenol Tab) 650 mg Q4H PRN PO 11/19/17 10:00 12/19/17 09:59 11/23/17 04:55 650 MG Polyethylene (Miralax Powder Packet) 17 gm DAILY PRN PO 11/19/17 10:00 12/19/17 09:59 Ondansetron HCl (Zofran Inj) 4 mg Q6H PRN IV 11/19/17 10:00 12/19/17 09:59 Atorvastatin Calcium (Lipitor Tab) 80 mg QDD PO 11/19/17 17:45 12/19/17 17:59 11/28/17 18:07 80 MG Calcium/Vitamin D (Caltrate Plus Tab) 1 tab BID PO 11/19/17 21:00 12/19/17 20:59 11/29/17 09:04 1 TAB Cyanocobalamin (Vitamin B-12 Tab) 1,000 mcg QAM PO 11/20/17 09:00 12/20/17 08:59 11/29/17 09:03 1,000 MCG Folic Acid (Folvite Tab) 1 mg QAM PO 11/20/17 09:00 12/20/17 08:59 11/29/17 09:03 1 MG Gabapentin (Neurontin Cap) 100 mg TID PO 11/19/17 14:00 12/19/17 13:59 Future Hold 11/21/17 19:43 100 MG Magnesium Oxide (Mag-Ox Tab) 400 mg BID PO 11/19/17 21:00 12/19/17 20:59 11/29/17 09:03 400 MG Oxycodone/ Acetaminophen (Percocet 5-325mg Tab) 1 tab Q6H PRN PO 11/19/17 10:15 12/03/17 10:14 11/29/17 15:33 1 TAB Ranitidine HCl (zANTac TAB) 150 mg QAM PO 11/20/17 09:00 12/20/17 08:59 11/29/17 09:04 150 MG Sertraline HCl (Zoloft Tab) 50 mg QAM PO 11/20/17 09:00 12/20/17 08:59 11/29/17 09:04 50 MG Ferrous Sulfate (Feosol Tab) 325 mg DAILY PO 11/20/17 09:00 12/20/17 08:59 11/29/17 09:04 325 MG Miscellaneous (Iv Fluids Completed) 1 ea PRN PRN N/A 11/19/17 12:00 11/19/18 11:59 Lorazepam (Ativan Tab) 1 mg ONE PRN PO 11/19/17 13:00 Enteral Nutritional Formula (Boost) 1 can BIDM PO 11/19/17 17:45 12/19/17 17:44 11/29/17 08:59 1 CAN Miscellaneous Information (Consult) 1 ea UD PRN N/A 11/19/17 22:15 12/19/17 22:14 Piperacillin Sod/ Tazobactam Sod 3.375 gm/Dextrose 115 ml @ 28.75 mls/ hr Q8H IV 11/20/17 04:00 11/30/17 03:59 11/29/17 15:33 28.75 MLS/HR Thiamine HCl 100 mg/Syringe 10 ml @ 2 mls/min DAILY IV 11/22/17 09:00 12/22/17 08:59 11/29/17 09:11 2 MLS/MIN Lorazepam (Ativan Tab) 1 mg ONE PRN PO 11/21/17 20:15 Morphine Sulfate (MoRPHine SULFATE INJ) If PO analgesic is orde... Q2H PRN IV 11/24/17 18:30 12/08/17 18:29 11/24/17 23:15 2 MG Ondansetron HCl (Zofran Inj) 4 mg Q6H PRN IV 11/24/17 18:30 12/24/17 18:29 Enoxaparin Sodium (Lovenox Inj) 40 mg Q12H SQ 11/25/17 08:00 12/25/17 07:59 11/29/17 09:01 40 MG Morphine Sulfate (MoRPHine SULFATE INJ) If PO analgesic is orde... Q2H PRN IV 11/24/17 19:45 12/08/17 19:44 Warfarin Sodium (Coumadin Tab) 2.5 mg DAILY@16 PO 11/28/17 16:00 12/28/17 15:59 11/29/17 15:34 2.5 MG
[2017-11-29] MEDS: ATORVASTATIN 40 MG TAB PO SCH (18:10)
[2017-11-29 23:15] VITALS: BP 125/66; PULSE 83; TEMP 36.7; O2SAT 96
[2017-11-30] VITALS (8 sets, daily range): BP systolic 102–133; BP diastolic 44–74; PULSE 83–109; TEMP 36.3–36.9; O2SAT 93–99
[2017-11-30] MEDS: PIPERACILL/TAZOBAC IV 3.375 GM in DEXTROSE 5% 100ML IV SCH ×2
[2017-11-30] MEDS: ENOXAPARIN 40 MG/0.4 ML SYR SQ SCH ×2 (08:00→13:38)
[2017-11-30] MEDS: BOOST VANILLA PO SCH ×2 (08:30→18:19)
[2017-11-30] MEDS ORDERED: ONDANSETRON INJ 2 MG/ML 2 ML VIAL IV PRN (09:00)
[2017-11-30] MEDS ORDERED: ATROPINE SULFATE 0.1 MG/ML 5ML SYR IV PRN (09:00)
[2017-11-30] MEDS ORDERED: NURSING VERBAL MED ORDER ONE ×2 (09:00→12:30)
[2017-11-30] MEDS ORDERED: EpHEDrine SULFATE INJ 50 MG/ML AMP IV PRN (09:00)
[2017-11-30] MEDS ORDERED: FENTANYL CITRATE INJ 50 MCG/1 ML 2 ML VIAL IV PRN (09:00)
[2017-11-30 09:01] LABS: HEMATOCRIT 31.1 % (42-52); HEMOGLOBIN 10.6 g/dL (14.0-18.0); MEAN CELL VOLUME 93.4 fL (80-100); MEAN CORPUSCULAR HEMOGLOBIN 31.8 pg (25-34); MEAN CORPUSCULAR HGB CONC 34.1 g/dl (32-36); MEAN PLATELET VOLUME 9.7 fL (7.4-10.4); PLATELET COUNT 369 K/uL (130-400); RED CELL DISTRIBUTION WIDTH CV 15.8 % (11.5-14.5); RED CELL DISTRIBUTION WIDTH SD 54.2 fL (36.4-46.3); WHITE BLOOD COUNT 7.94 K/uL (4.8-10.8)
--- NOTE | 2017-11-30 09:04 | Progress Note ---
Progress Note Date of Service Nov 30, 2017. Progress Note Patient for debridement of his right foot. I have discussed the risks options and benefits of the procedure with the patient. The patient understands the risks options and benefits and agrees to the procedure. I have examined the patient, reviewed the History & Physical and in the interval since the performance of the History & Physical I have noted the following changes of clinical significance: No changes noted
[2017-11-30] MEDS ORDERED: PROPOFOL IV EMULSION 10 MG/ML 20 ML VIAL IV ONE (09:10)
[2017-11-30] MEDS ORDERED: MIDAZOLAM HCL 1 MG/ML 2ML VIAL ONE (09:10)
[2017-11-30] MEDS ORDERED: LIDOCAINE HCL 2% 2 ML VIAL (20MG/ML) ONE (09:10)
[2017-11-30] MEDS ORDERED: FENTANYL CITRATE INJ 50 MCG/1 ML 2 ML VIAL ONE ×2 (09:11→10:43)
[2017-11-30] MEDS ORDERED: BUPIVACAINE/EPINEPHRINE 0.5% MPF 1:200,000 30 ML VIAL ONE (09:15)
[2017-11-30] MEDS ORDERED: LIDOCAINE HCL 1% 20 ML VIAL ONE (09:15)
[2017-11-30 09:38] LABS: CREATININE 0.99 mg/dl (0.60-1.40)
[2017-11-30] MEDS ORDERED: ONDANSETRON INJ 2 MG/ML 2 ML VIAL ONE (10:01)
[2017-11-30] MEDS ORDERED: EpHEDrine SULFATE INJ 50 MG/ML AMP ONE (10:13)
--- NOTE | 2017-11-30 10:30 | [facility] Post Operative Brief Note ---
Immediate Operative Summary Operative Date Nov 30, 2017. Pre-Operative Diagnosis Gangrene right foot/toe amputation site Post-Operative Diagnosis Same as preop Procedure(s) Performed Debridement of Right Foot Surgeon Dr. Hussein Oil Winterizer Surgeon(s) Dr. Watts Estimated Blood Loss 10 cc Findings Consistent with Post-Op Diagnosis Specimens none, as per surgeon Drains None Anesthesia Type General Complication(s) none Disposition Accompanied Pt To Recover: no Disposition: Recovery Room / PACU
--- NOTE | 2017-11-30 12:08 | OPERATIVE REPORT ---
DATE OF OPERATION: 11/30/2017 PREOPERATIVE DIAGNOSES: Peripheral arterial disease, gangrene of the right great toe amputation site and right second toe wound. POSTOPERATIVE DIAGNOSES: Peripheral arterial disease, dry gangrene of right great toe amputation site and right second toe wound. PROCEDURE: Debridement of right foot wounds with right great toe transmetatarsal amputation. SURGEON: Dr. Abhijeet Hussein. RIB BENDER: Dr. Rachelle Watts. ESTIMATED BLOOD LOSS: 10 mL. SPECIMENS: None. DRAINS: None. ANESTHESIA: General endotracheal anesthesia. COMPLICATIONS: None. INDICATIONS: Mr. Sven Doty is a 72-year-old gentleman with a history of DVT, hypertension, hypercholesterolemia, peripheral arterial disease with bilateral lower extremities status post bilateral fem-peroneal bypasses, status post a previous right great toe amputation complicated by dry gangrene of the amputation site. His right femoral to peroneal bypass was done in November 24 and he appeared to be recovering well from this postoperatively. Given the dry gangrene at his right great toe amputation site, he was recommended to undergo debridement of this wound with possible further amputation. The risks, benefits and alternatives were discussed with the patient and he consented to the procedure. DESCRIPTION OF PROCEDURE: The patient was taken to the operating room and placed in the supine position. His right foot and leg were prepped and draped in the usual sterile fashion. General endotracheal anesthesia was induced by our anesthesia colleagues. A safety timeout was performed and the patient, the procedure, and sidedness were correctly identified. A racquet incision was made over the existing right great toe amputation site and extended to the medial aspect of the foot. Incision was made with a 10 blade scalpel. The metatarsal head was identified. Periosteal elevator was used to elevate the periosteum surrounding the first metatarsal. An electric saw was used to remove 2 cm of the metatarsal head. Following this, 2 sesamoid bones were identified and excised with sharp dissection. Small areas of bleeding were cauterized with Bovie electrocautery. We then turned our dissection to the wound on the second toe. The eschar was excised with a 10 blade scalpel. This appeared to go down to bone. A bone cutter was used to remove the distal most aspect of the distal phalange. Rongeurs were used to debride back the first phalang exposing the joint. The cartilage was then removed again with rongeurs. On further assessing the foot, the toenail over the third digit appeared black. The tissue surrounding the third toenail was removed and with this came the third toenail in its entirety. All wounds were irrigated with normal saline. The initial areas was bleeding were controlled with Bovie electrocautery. A 3-0 Vicryl was used to close subcutaneous tissues overlying the remaining first metatarsal. Skin was closed with 3-0 nylon vertical mattress sutures. The second toe wound was also irrigated and closed with 3-0 nylon interrupted sutures. Xeroform was applied to both wounds followed by sterile 4 x 4's and sterile Kerlix. The patient was awakened from anesthesia and transferred to recovery area in stable condition. He tolerated the procedure well and there were no immediate complications. Dr. Abhijeet Hussein was present for the entire procedure. I attest to the content of the Intraoperative Record and any orders documented therein. Any exception s are noted below.
--- NOTE | 2017-11-30 12:22 | Anesthesiology Progress Note ---
Anesthesia Post Op Note Date & Time Nov 30, 2017 at 12:21 Vital Signs Pain Intensity: 0 Vital Signs Past 12 Hours Date Time Temp Pulse Resp B/P (MAP) Pulse Ox O2 Delivery O2 Flow Rate FiO2 11/30/17 12:10 36.9 109 18 129/71 (90) 93 Room Air 11/30/17 11:50 36.8 107 19 138/73 94 Room Air 11/30/17 11:40 108 22 129/75 93 Room Air 11/30/17 11:30 111 14 124/76 98 Room Air 11/30/17 11:20 103 16 141/78 100 Oxymask 10 11/30/17 11:10 36.8 90 13 129/71 100 Oxymask 10 NIBP Arterial Line 11/30/17 08:35 Room Air 11/30/17 07:00 36.5 90 18 121/73 (89) 98 Room Air Notes Mental Status: alert / awake / arousable, participated in evaluation Pt Amnestic to Procedure: Yes Nausea / Vomiting: adequately controlled Pain: adequately controlled Airway Patency, RR, SpO2: stable & adequate BP & HR: stable & adequate Hydration State: stable & adequate Anesthetic Complications: no major complications apparent Pt was noted to have sinus tachycardia with HR in the low 100s. BP remained stable throughout. I evaluated the pt and he denied CP, SOB, or any noticeable pain. Pt was otherwise stable for discharge to his room
[2017-11-30] MEDS: SERTRALINE HCL 50 MG TAB PO SCH (12:34)
[2017-11-30] MEDS: CYANOCOBALAMIN 500 MCG TAB (VIT B-12) PO SCH (12:34)
[2017-11-30] MEDS: RANITIDINE HCL 150 MG TAB PO SCH (12:35)
[2017-11-30] MEDS: FERROUS SULFATE 325 MG TAB PO SCH (12:35)
[2017-11-30] MEDS: MAGNESIUM OXIDE 400 MG TAB PO SCH ×2 (12:35→21:28)
[2017-11-30] MEDS: CALCIUM 600MG + VIT D 400 IU TAB PO SCH ×2 (12:35→21:28)
[2017-11-30] MEDS: THIAMINE HCL INJ 100 MG in SYRINGE 9 ML IV SCH (12:38)
[2017-11-30] MEDS: WARFARIN SOD 2.5 MG TAB PO SCH (16:20)
[2017-11-30] MEDS: OXYCODONE/ACETAMINOPHEN 5-325 TAB PO PRN (17:10)
[2017-11-30] MEDS: ATORVASTATIN 40 MG TAB PO SCH (18:19)
[2017-11-30] MEDS: BOOST VANILLA PUDDING CUP PO SCH (19:04)
--- NOTE | 2017-11-30 21:12 | Progress Note ---
Medicine Progress Note Date & Time of Visit: Nov 30, 2017 at 21:08. Subjective Seen laying in bed comfortable in good spirits States he feels okay overall Denies of pain tonight Denies any other symptoms Objective Last 8 Hrs Date Time Temp Pulse Resp B/P (MAP) Pulse Ox O2 Delivery O2 Flow Rate FiO2 11/30/17 19:00 36.8 95 16 102/44 (63) 96 Room Air 11/30/17 16:10 Room Air 11/30/17 15:26 36.7 88 14 124/70 (88) 99 Room Air Physical Exam: General-oriented 3, speaks in sentences, no accessory muscle Head- atraumatic Eyes- PERRL, EOMI, anicteric ENT- oropharynx clear Neck- supple, no JVD, no adenopathy, no thyromegaly; carotids +2/2 Lungs- clear breath sounds bilaterally Heart- regular rhythm; no murmur, normal rate Abdomen- normal bowel sounds, soft, nontender, Extremities-dressing on the right foot intact no discharges no bleeding 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 Neuro- alert, oriented x 3; no gross focal motor or sensory deficits no other gross focal neurologic deficits Skin- warm & dry Laboratory Results: Last 24 Hours Test 11/30/17 08:18 White Blood Count 7.94 K/uL Red Blood Count 3.33 M/uL Hemoglobin 10.6 g/dL Hematocrit 31.1 % Mean Corpuscular Volume 93.4 fL Mean Corpuscular Hemoglobin 31.8 pg Mean Corpuscular Hemoglobin Concent 34.1 g/dl RDW Standard Deviation 54.2 fL RDW Coefficient of Variation 15.8 % Platelet Count 369 K/uL Mean Platelet Volume 9.7 fL Prothrombin Time 10.6 SECONDS Prothromb Time International Ratio 1.0 Creatinine 0.99 mg/dl Est Creatinine Clear Calc Drug Dose 61.7 ml/min Estimated GFR () 88.4 Estimated GFR (Non- 76.3 Assessment & Plan PERIPHERAL VASCULAR DISEASE Gangrene of toes in Right foot S/P day#4 right superficial femoral endarterectomy with bovine patch graft, Right femoral to peroneal in situ bypass graft by dr. Hussein Status post day #0 right toe debridement and amputation Lovenox converted to daily, Coumadin continued, INR 1.3 Has finished 10 days of IV Zosyn Awaiting further recommendations by vascular surgery ANEMIA ACUTE BLOOD LOSS POST OP Hgb dropped to 6.7 Received 2 unit PRBC Stable around 10 Letter SUPRA THERAPEUTIC INR Elevated INR 4.9 on admission. Received Vit K INR 1.3 Continue Coumadin Lovenox daily CORONARY ARTERY DISEASE No anginal symptoms HYPERTENSION Blood pressures in the low side Monitor BP COPD Respiratory status stable. CONFUSION Back to baseline ALCOHOL CONSUMPTION No signs of alcohol withdrawn. Continue gabapentin for alcohol withdrawn protocol VTE PROPHYLAXIS Lovenox 40mg daily On Coumadin INR 1.3 DISPOSITION Plan to go to OR tomorrow for debridement Possible placement to rehab Consultants: vascular Consultants: vascular Current Inpatient Medications: Current Inpatient Medications Medications (Trade) Dose Ordered Sig/Nieves Route Start Time Stop Time Status Last Admin Dose Admin Acetaminophen (Tylenol Tab) 650 mg Q4H PRN PO 11/19/17 10:00 12/19/17 09:59 11/23/17 04:55 650 MG Polyethylene (Miralax Powder Packet) 17 gm DAILY PRN PO 11/19/17 10:00 12/19/17 09:59 Ondansetron HCl (Zofran Inj) 4 mg Q6H PRN IV 11/19/17 10:00 12/19/17 09:59 Atorvastatin Calcium (Lipitor Tab) 80 mg QDD PO 11/19/17 17:45 12/19/17 17:59 11/30/17 18:19 80 MG Calcium/Vitamin D (Caltrate Plus Tab) 1 tab BID PO 11/19/17 21:00 12/19/17 20:59 11/30/17 12:35 1 TAB Cyanocobalamin (Vitamin B-12 Tab) 1,000 mcg QAM PO 11/20/17 09:00 12/20/17 08:59 11/30/17 12:34 1,000 MCG Folic Acid (Folvite Tab) 1 mg QAM PO 11/20/17 09:00 12/20/17 08:59 11/30/17 12:34 1 MG Gabapentin (Neurontin Cap) 100 mg TID PO 11/19/17 14:00 12/19/17 13:59 Future Hold 11/21/17 19:43 100 MG Magnesium Oxide (Mag-Ox Tab) 400 mg BID PO 11/19/17 21:00 12/19/17 20:59 11/30/17 12:35 400 MG Oxycodone/ Acetaminophen (Percocet 5-325mg Tab) 1 tab Q6H PRN PO 11/19/17 10:15 12/03/17 10:14 11/30/17 17:10 1 TAB Ranitidine HCl (zANTac TAB) 150 mg QAM PO 11/20/17 09:00 12/20/17 08:59 11/30/17 12:35 150 MG Sertraline HCl (Zoloft Tab) 50 mg QAM PO 11/20/17 09:00 12/20/17 08:59 11/30/17 12:34 50 MG Ferrous Sulfate (Feosol Tab) 325 mg DAILY PO 11/20/17 09:00 12/20/17 08:59 11/30/17 12:35 325 MG Miscellaneous (Iv Fluids Completed) 1 ea PRN PRN N/A 11/19/17 12:00 11/19/18 11:59 Lorazepam (Ativan Tab) 1 mg ONE PRN PO 11/19/17 13:00 Enteral Nutritional Formula (Boost) 1 can BIDM PO 11/19/17 17:45 12/19/17 17:44 11/30/17 18:19 1 CAN Thiamine HCl 100 mg/Syringe 10 ml @ 2 mls/min DAILY IV 11/22/17 09:00 12/22/17 08:59 11/30/17 12:38 2 MLS/MIN Lorazepam (Ativan Tab) 1 mg ONE PRN PO 11/21/17 20:15 Morphine Sulfate (MoRPHine SULFATE INJ) If PO analgesic is orde... Q2H PRN IV 11/24/17 18:30 12/08/17 18:29 11/24/17 23:15 2 MG Ondansetron HCl (Zofran Inj) 4 mg Q6H PRN IV 11/24/17 18:30 12/24/17 18:29 Morphine Sulfate (MoRPHine SULFATE INJ) If PO analgesic is orde... Q2H PRN IV 11/24/17 19:45 12/08/17 19:44 Warfarin Sodium (Coumadin Tab) 2.5 mg DAILY@16 PO 11/28/17 16:00 12/28/17 15:59 11/30/17 16:20 2.5 MG Enoxaparin Sodium (Lovenox Inj) 40 mg Q12H SQ 11/30/17 13:00 12/30/17 12:59 11/30/17 13:38 40 MG Enteral Nutritional Formula (Boost Pudding) 1 cup TIDM PO 11/30/17 17:45 12/30/17 17:44 11/30/17 19:04 1 CUP
[2017-12-01] MEDS: ENOXAPARIN 40 MG/0.4 ML SYR SQ SCH ×3 (01:09→23:42)
[2017-12-01 03:05] VITALS: BP 123/56; PULSE 89; TEMP 36.8; O2SAT 96
[2017-12-01 08:24] VITALS: BP_SYST 134; PULSE 74; O2SAT 96
[2017-12-01] MEDS: BOOST VANILLA PUDDING CUP PO SCH ×3 (08:30→18:36)
[2017-12-01] MEDS: BOOST VANILLA PO SCH ×2 (08:30→18:36)
[2017-12-01] MEDS: THIAMINE HCL INJ 100 MG in SYRINGE 9 ML IV SCH (09:00)
[2017-12-01] MEDS: OXYCODONE/ACETAMINOPHEN 5-325 TAB PO PRN ×2 (09:19→16:14)
[2017-12-01] MEDS: FERROUS SULFATE 325 MG TAB PO SCH (09:20)
[2017-12-01] MEDS: MAGNESIUM OXIDE 400 MG TAB PO SCH ×2 (09:20→21:52)
[2017-12-01] MEDS: RANITIDINE HCL 150 MG TAB PO SCH (09:20)
[2017-12-01] MEDS: CALCIUM 600MG + VIT D 400 IU TAB PO SCH ×2 (09:20→21:52)
[2017-12-01] MEDS: SERTRALINE HCL 50 MG TAB PO SCH (09:20)
[2017-12-01] MEDS: CYANOCOBALAMIN 500 MCG TAB (VIT B-12) PO SCH (09:20)
[2017-12-01 12:42] VITALS: O2SAT 96
--- NOTE | 2017-12-01 14:02 | Progress Note ---
Progress Note Date of Service: Dec 01, 2017. Subjective 72 yo m with multiple medical problems, POD # after R foot debridement, seen in f/u today. Pt denies any new complaints. Problem List Medical Problems: (1) Change in mental status Status: Acute (2) Closed fracture of neck of left humerus Status: Acute (3) Dehydration Status: Acute (4) Dehydration Status: Acute (5) Dementia Status: Acute (6) Gangrene of toe Status: Acute (7) History of alcohol abuse Status: Chronic (8) Leukocytosis Status: Acute (9) Multiple contusions Status: Acute (10) STEMI (ST elevation myocardial infarction) Status: Acute (11) STEMI (ST elevation myocardial infarction) Status: Acute (12) UTI (urinary tract infection) Status: Acute (13) Wound of abdomen Status: Acute Objective Vital Signs Vital Signs Past 12 Hours Date Time Temp Pulse Resp B/P (MAP) Pulse Ox O2 Delivery O2 Flow Rate FiO2 12/01/17 12:42 96 Room Air 12/01/17 11:11 Room Air 12/01/17 08:24 18 134/ (44) 96 Room Air 74 12/01/17 03:05 36.8 89 16 123/56 (78) 96 Room Air Exam CONST: A&O x3, NAD, chronically ill appearing male EXT: RLE fem-peroneal BPG incisions C/D/I with ritesh. + tenderness. + pulse in BPG. Foot warm and pink. amp site closed with sutures. Laboratory and Microbiology Results Past 24 Hours Test 12/01/17 11:37 Range/Units Prothrombin Time 11.0 9.0-12.0 SECONDS Prothromb Time International Ratio 1.0 0.9-1.1 ASSESSMENT and PLAN: s/p RLE debridement s/p RLE fem-peroneal in situ bypass Severe PAD with gangrene Pt doing well post op. Continue local wound care.
[2017-12-01 15:09] VITALS: BP 127/62; PULSE 80; TEMP 36.6; O2SAT 99
[2017-12-01] MEDS: WARFARIN SOD 2.5 MG TAB PO SCH (16:14)
--- NOTE | 2017-12-01 17:50 | Progress Note ---
Medicine Progress Note Date & Time of Visit: Dec 01, 2017 at 17:45. Subjective seen resting, comfortable states he feels fine overall not much pain on the foot denies chest pain, dyspnea, palpitations no other symptoms Objective Last 8 Hrs Date Time Temp Pulse Resp B/P (MAP) Pulse Ox O2 Delivery O2 Flow Rate FiO2 12/01/17 16:00 Room Air 12/01/17 15:09 36.6 80 20 127/62 (83) 99 Room Air 12/01/17 12:42 96 Room Air 12/01/17 11:11 Room Air Physical Exam: General-oriented 3, speaks in sentences, no accessory muscle Eyes- anicteric Neck- supple, no JVD Lungs- clear breath sounds bilaterally, no rales/wheezes Heart- regular rhythm; no murmur, normal rate Abdomen- normal bowel sounds, soft, nontender Extremities-dressing on the right foot intact no discharges no bleeding 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 Neuro- alert, oriented x 3; no gross focal motor or sensory deficits no other gross focal neurologic deficits Skin- warm & dry Laboratory Results: Last 24 Hours Test 12/01/17 11:37 Prothrombin Time 11.0 SECONDS Prothromb Time International Ratio 1.0 Assessment & Plan PERIPHERAL VASCULAR DISEASE Gangrene of toes in Right foot S/P day#5 right superficial femoral endarterectomy with bovine patch graft, Right femoral to peroneal in situ bypass graft by dr. Hussein Status post day #1 right toe debridement and amputation Lovenox 40mg BID, Coumadin continued, INR 1.0 Has finished 10 days of IV Zosyn Awaiting further recommendations by vascular surgery ANEMIA ACUTE BLOOD LOSS POST OP Hgb dropped to 6.7 Received 2 unit PRBC Stable around 10 monitor SUPRA THERAPEUTIC INR Elevated INR 4.9 on admission. Received Vit K INR 1.0 Continue Coumadin Lovenox 40mg BID CORONARY ARTERY DISEASE No anginal symptoms HYPERTENSION Blood pressures in the low side Monitor BP COPD Respiratory status stable. CONFUSION Back to baseline ALCOHOL CONSUMPTION No signs of alcohol withdrawn. Continue gabapentin for alcohol withdrawn protocol VTE PROPHYLAXIS Lovenox 40mg BID On Coumadin INR 1.0 DISPOSITION Possible placement to rehab PT/OT in progress Consultants: vascular Consultants: vascular Current Inpatient Medications: Current Inpatient Medications Medications (Trade) Dose Ordered Sig/Nieves Route Start Time Stop Time Status Last Admin Dose Admin Acetaminophen (Tylenol Tab) 650 mg Q4H PRN PO 11/19/17 10:00 12/19/17 09:59 11/23/17 04:55 650 MG Polyethylene (Miralax Powder Packet) 17 gm DAILY PRN PO 11/19/17 10:00 12/19/17 09:59 Ondansetron HCl (Zofran Inj) 4 mg Q6H PRN IV 11/19/17 10:00 12/19/17 09:59 Atorvastatin Calcium (Lipitor Tab) 80 mg QDD PO 11/19/17 17:45 12/19/17 17:59 11/30/17 18:19 80 MG Calcium/Vitamin D (Caltrate Plus Tab) 1 tab BID PO 11/19/17 21:00 12/19/17 20:59 12/01/17 09:20 1 TAB Cyanocobalamin (Vitamin B-12 Tab) 1,000 mcg QAM PO 11/20/17 09:00 12/20/17 08:59 12/01/17 09:20 1,000 MCG Folic Acid (Folvite Tab) 1 mg QAM PO 11/20/17 09:00 12/20/17 08:59 12/01/17 09:20 1 MG Gabapentin (Neurontin Cap) 100 mg TID PO 11/19/17 14:00 12/19/17 13:59 Future Hold 11/21/17 19:43 100 MG Magnesium Oxide (Mag-Ox Tab) 400 mg BID PO 11/19/17 21:00 12/19/17 20:59 12/01/17 09:20 400 MG Oxycodone/ Acetaminophen (Percocet 5-325mg Tab) 1 tab Q6H PRN PO 11/19/17 10:15 12/03/17 10:14 12/01/17 16:14 1 TAB Ranitidine HCl (zANTac TAB) 150 mg QAM PO 11/20/17 09:00 12/20/17 08:59 12/01/17 09:20 150 MG Sertraline HCl (Zoloft Tab) 50 mg QAM PO 11/20/17 09:00 12/20/17 08:59 12/01/17 09:20 50 MG Ferrous Sulfate (Feosol Tab) 325 mg DAILY PO 11/20/17 09:00 12/20/17 08:59 12/01/17 09:20 325 MG Miscellaneous (Iv Fluids Completed) 1 ea PRN PRN N/A 11/19/17 12:00 11/19/18 11:59 Lorazepam (Ativan Tab) 1 mg ONE PRN PO 11/19/17 13:00 Enteral Nutritional Formula (Boost) 1 can BIDM PO 11/19/17 17:45 12/19/17 17:44 11/30/17 18:19 1 CAN Thiamine HCl 100 mg/Syringe 10 ml @ 2 mls/min DAILY IV 11/22/17 09:00 12/22/17 08:59 11/30/17 12:38 2 MLS/MIN Lorazepam (Ativan Tab) 1 mg ONE PRN PO 11/21/17 20:15 Morphine Sulfate (MoRPHine SULFATE INJ) If PO analgesic is orde... Q2H PRN IV 11/24/17 18:30 12/08/17 18:29 11/24/17 23:15 2 MG Ondansetron HCl (Zofran Inj) 4 mg Q6H PRN IV 11/24/17 18:30 12/24/17 18:29 Morphine Sulfate (MoRPHine SULFATE INJ) If PO analgesic is orde... Q2H PRN IV 11/24/17 19:45 12/08/17 19:44 Enoxaparin Sodium (Lovenox Inj) 40 mg Q12H SQ 11/30/17 13:00 12/30/17 12:59 12/01/17 01:09 40 MG Enteral Nutritional Formula (Boost Pudding) 1 cup TIDM PO 11/30/17 17:45 12/30/17 17:44 11/30/17 19:04 1 CUP Warfarin Sodium (Coumadin Tab) 4 mg DAILY@16 PO 12/02/17 16:00 12/28/17 15:59 UNV
[2017-12-01] MEDS: ATORVASTATIN 40 MG TAB PO SCH (18:36)
[2017-12-01 22:43] VITALS: BP 113/66; PULSE 79; TEMP 36.3; O2SAT 96
[2017-12-02 07:26] VITALS: BP 116/65; PULSE 86; TEMP 36.4; O2SAT 97
[2017-12-02] MEDS: OXYCODONE/ACETAMINOPHEN 5-325 TAB PO PRN (07:27)
[2017-12-02 08:00] VITALS: O2SAT 97
[2017-12-02 09:46] LABS: BASO % 0.3 %; BASO ABS # 0.03 K/uL (0-0.2); EOS % 3.1 %; EOS ABS # 0.32 K/uL (0-0.5); HEMATOCRIT 28.9 % (42-52); HEMOGLOBIN 9.9 g/dL (14.0-18.0); IG# 0.05 K/uL (0.00-0.02); LYMPH % 8.7 %; MEAN CELL VOLUME 92.6 fL (80-100); MEAN CORPUSCULAR HEMOGLOBIN 31.7 pg (25-34); MEAN CORPUSCULAR HGB CONC 34.3 g/dl (32-36); MEAN PLATELET VOLUME 9.2 fL (7.4-10.4); MONO % 8.3 %; MONO ABS # 0.86 K/uL (0.11-0.59); NEUT % 79.1 %; NEUT ABS # 8.23 K/uL (1.4-6.5); PLATELET COUNT 375 K/uL (130-400); RED CELL DISTRIBUTION WIDTH CV 15.8 % (11.5-14.5); RED CELL DISTRIBUTION WIDTH SD 53.3 fL (36.4-46.3); WHITE BLOOD COUNT 10.39 K/uL (4.8-10.8)
[2017-12-02 10:00] LABS: INR 1.1 (0.9-1.1)
[2017-12-02 10:11] LABS: CALCIUM 9.1 mg/dl (8.5-10.1); CREATININE 0.92 mg/dl (0.60-1.40); POTASSIUM 3.9 mmol/L (3.5-5.1)
[2017-12-02] MEDS: BOOST VANILLA PUDDING CUP PO SCH ×3 (10:36→17:45)
[2017-12-02] MEDS: RANITIDINE HCL 150 MG TAB PO SCH (10:49)
[2017-12-02] MEDS: SERTRALINE HCL 50 MG TAB PO SCH (10:49)
[2017-12-02] MEDS: MAGNESIUM OXIDE 400 MG TAB PO SCH ×2 (10:50→20:44)
[2017-12-02] MEDS: CYANOCOBALAMIN 500 MCG TAB (VIT B-12) PO SCH (10:50)
[2017-12-02] MEDS: FERROUS SULFATE 325 MG TAB PO SCH (10:50)
[2017-12-02] MEDS: CALCIUM 600MG + VIT D 400 IU TAB PO SCH ×2 (10:50→20:44)
[2017-12-02] MEDS ORDERED: THIAMINE HCL 100 MG TAB PO ONE (11:08)
[2017-12-02] MEDS: BOOST VANILLA PO SCH ×2 (11:08→17:45)
--- NOTE | 2017-12-02 11:20 | Progress Note ---
Medicine Progress Note Date & Time of Visit: Dec 02, 2017 at 11:10. Subjective seen resting in bed, comfortable was declining to take medications this morning, now agreeable states he feels fine overall pain well controlled denies chest pain, dyspnea, dizziness no other symptoms Objective Last 8 Hrs Date Time Temp Pulse Resp B/P (MAP) Pulse Ox O2 Delivery O2 Flow Rate FiO2 12/02/17 08:00 97 Room Air 12/02/17 07:26 36.4 86 18 116/65 (82) 97 Room Air Physical Exam: General-oriented 3, speaks in sentences, no accessory muscle Eyes- anicteric Neck- no JVD Lungs- clear BS, bilaterally Heart- regular rhythm; no murmur, normal rate Abdomen- normal bowel sounds, soft, nontender Extremities- ritesh on the surgical sites on the right leg intact, no bleeding/discharges dressing on the right foot intact no discharges no bleeding 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 Neuro- alert, oriented x 3; no gross focal motor or sensory deficits no other gross focal neurologic deficits Skin- warm & dry Laboratory Results: Last 24 Hours Test 12/01/17 11:37 12/02/17 09:23 Prothrombin Time 11.0 SECONDS 11.6 SECONDS Prothromb Time International Ratio 1.0 1.1 White Blood Count 10.39 K/uL Red Blood Count 3.12 M/uL Hemoglobin 9.9 g/dL Hematocrit 28.9 % Mean Corpuscular Volume 92.6 fL Mean Corpuscular Hemoglobin 31.7 pg Mean Corpuscular Hemoglobin Concent 34.3 g/dl Platelet Count 375 K/uL Mean Platelet Volume 9.2 fL Neutrophils (%) (Auto) 79.1 % Lymphocytes (%) (Auto) 8.7 % Monocytes (%) (Auto) 8.3 % Eosinophils (%) (Auto) 3.1 % Basophils (%) (Auto) 0.3 % Neutrophils # (Auto) 8.23 K/uL Lymphocytes # (Auto) 0.90 K/uL Monocytes # (Auto) 0.86 K/uL Eosinophils # (Auto) 0.32 K/uL Basophils # (Auto) 0.03 K/uL RDW Standard Deviation 53.3 fL RDW Coefficient of Variation 15.8 % Immature Granulocyte % (Auto) 0.5 % Immature Granulocyte # (Auto) 0.05 K/uL Sodium Level 133 mmol/L Potassium Level 3.9 mmol/L Chloride Level 99 mmol/L Carbon Dioxide Level 29 mmol/L Anion Gap 5.0 mmol/L Blood Urea Nitrogen 7 mg/dl Creatinine 0.92 mg/dl Est Creatinine Clear Calc Drug Dose 62.3 ml/min Estimated GFR () 96.6 Estimated GFR (Non- 83.4 BUN/Creatinine Ratio 7.7 Random Glucose 101 mg/dl Calcium Level 9.1 mg/dl Assessment & Plan PERIPHERAL VASCULAR DISEASE Gangrene of toes in Right foot S/P day #6 right superficial femoral endarterectomy with bovine patch graft, Right femoral to peroneal in situ bypass graft by dr. Hussein Status post day #2 right toe debridement Lovenox 40mg BID, Coumadin continued, INR 1.1 Has finished 10 days of IV Zosyn Awaiting further recommendations by vascular surgery ANEMIA ACUTE BLOOD LOSS POST OP Hgb dropped to 6.7 Received 2 unit PRBC Stable around 10 monitor SUPRA THERAPEUTIC INR Elevated INR 4.9 on admission. Received Vit K INR 1.1 Continue Coumadin, increased to 4mg daily Lovenox 40mg BID CORONARY ARTERY DISEASE No anginal symptoms HYPERTENSION stable monitor COPD Respiratory status stable. CONFUSION Back to baseline ALCOHOL CONSUMPTION No signs of alcohol withdrawn. Continue gabapentin for alcohol withdrawn protocol VTE PROPHYLAXIS Lovenox 40mg BID On Coumadin also DISPOSITION Possible placement to rehab PT/OT in progress Consultants: vascular Consultants: vascular Current Inpatient Medications: Current Inpatient Medications Medications (Trade) Dose Ordered Sig/Nieves Route Start Time Stop Time Status Last Admin Dose Admin Acetaminophen (Tylenol Tab) 650 mg Q4H PRN PO 11/19/17 10:00 12/19/17 09:59 11/23/17 04:55 650 MG Polyethylene (Miralax Powder Packet) 17 gm DAILY PRN PO 11/19/17 10:00 12/19/17 09:59 Ondansetron HCl (Zofran Inj) 4 mg Q6H PRN IV 11/19/17 10:00 12/19/17 09:59 Atorvastatin Calcium (Lipitor Tab) 80 mg QDD PO 11/19/17 17:45 12/19/17 17:59 12/01/17 18:36 80 MG Calcium/Vitamin D (Caltrate Plus Tab) 1 tab BID PO 11/19/17 21:00 12/19/17 20:59 2/22/18 10:50 1 TAB Cyanocobalamin (Vitamin B-12 Tab) 1,000 mcg QAM PO 11/20/17 09:00 12/20/17 08:59 12/02/17 10:50 1,000 MCG Folic Acid (Folvite Tab) 1 mg QAM PO 11/20/17 09:00 12/20/17 08:59 12/02/17 10:50 1 MG Gabapentin (Neurontin Cap) 100 mg TID PO 11/19/17 14:00 12/19/17 13:59 Future Hold 11/21/17 19:43 100 MG Magnesium Oxide (Mag-Ox Tab) 400 mg BID PO 11/19/17 21:00 12/19/17 20:59 12/02/17 10:50 400 MG Oxycodone/ Acetaminophen (Percocet 5-325mg Tab) 1 tab Q6H PRN PO 11/19/17 10:15 12/03/17 10:14 12/02/17 07:27 1 TAB Ranitidine HCl (zANTac TAB) 150 mg QAM PO 11/20/17 09:00 12/20/17 08:59 12/02/17 10:49 150 MG Sertraline HCl (Zoloft Tab) 50 mg QAM PO 11/20/17 09:00 12/20/17 08:59 12/02/17 10:49 50 MG Ferrous Sulfate (Feosol Tab) 325 mg DAILY PO 11/20/17 09:00 12/20/17 08:59 12/02/17 10:50 325 MG Miscellaneous (Iv Fluids Completed) 1 ea PRN PRN N/A 11/19/17 12:00 11/19/18 11:59 Lorazepam (Ativan Tab) 1 mg ONE PRN PO 11/19/17 13:00 Enteral Nutritional Formula (Boost) 1 can BIDM PO 11/19/17 17:45 12/19/17 17:44 12/01/17 18:36 1 CAN Thiamine HCl 100 mg/Syringe 10 ml @ 2 mls/min DAILY IV 11/22/17 09:00 12/22/17 08:59 11/30/17 12:38 2 MLS/MIN Lorazepam (Ativan Tab) 1 mg ONE PRN PO 11/21/17 20:15 Morphine Sulfate (MoRPHine SULFATE INJ) If PO analgesic is orde... Q2H PRN IV 11/24/17 18:30 12/08/17 18:29 11/24/17 23:15 2 MG Ondansetron HCl (Zofran Inj) 4 mg Q6H PRN IV 11/24/17 18:30 12/24/17 18:29 Morphine Sulfate (MoRPHine SULFATE INJ) If PO analgesic is orde... Q2H PRN IV 11/24/17 19:45 12/08/17 19:44 Enoxaparin Sodium (Lovenox Inj) 40 mg Q12H SQ 11/30/17 13:00 12/30/17 12:59 12/01/17 01:09 40 MG Enteral Nutritional Formula (Boost Pudding) 1 cup TIDM PO 11/30/17 17:45 12/30/17 17:44 12/02/17 10:36 1 CUP Warfarin Sodium (Coumadin Tab) 4 mg DAILY@16 PO 12/02/17 16:00 01/01/18 15:59
[2017-12-02] MEDS: ENOXAPARIN 40 MG/0.4 ML SYR SQ SCH ×2 (13:20→22:51)
--- NOTE | 2017-12-02 14:13 | Progress Note ---
Progress Note Date of Service: Dec 02, 2017. Subjective No complaints Problem List Medical Problems: (1) Change in mental status Status: Acute (2) Closed fracture of neck of left humerus Status: Acute (3) Dehydration Status: Acute (4) Dehydration Status: Acute (5) Dementia Status: Acute (6) Gangrene of toe Status: Acute (7) History of alcohol abuse Status: Chronic (8) Leukocytosis Status: Acute (9) Multiple contusions Status: Acute (10) STEMI (ST elevation myocardial infarction) Status: Acute (11) STEMI (ST elevation myocardial infarction) Status: Acute (12) UTI (urinary tract infection) Status: Acute (13) Wound of abdomen Status: Acute Objective Vital Signs Vital Signs Past 12 Hours Date Time Temp Pulse Resp B/P (MAP) Pulse Ox O2 Delivery O2 Flow Rate FiO2 12/02/17 13:27 Room Air 12/02/17 08:00 97 Room Air 12/02/17 07:26 36.4 86 18 116/65 (82) 97 Room Air Exam Bypass of right leg patent. Good flow to foot Amp site looks good Intake & Output 8-Hour Column 12/02/17 12/03/17 12/03/17 16:00 00:00 08:00 Intake Total 200 ml Output Total 200 ml Balance 0 ml 24-Hour Column 12/03/17 08:00 Intake Total 200 ml Output Total 200 ml Balance 0 ml Laboratory and Microbiology Results Past 24 Hours Test 12/02/17 09:23 Range/Units White Blood Count 10.39 4.8-10.8 K/uL Red Blood Count 3.12 4.7-6.1 M/uL Hemoglobin 9.9 14.0-18.0 g/dL Hematocrit 28.9 42-52 % Mean Corpuscular Volume 92.6 80-100 fL Mean Corpuscular Hemoglobin 31.7 25-34 pg Mean Corpuscular Hemoglobin Concent 34.3 32-36 g/dl Platelet Count 375 130-400 K/uL Mean Platelet Volume 9.2 7.4-10.4 fL Neutrophils (%) (Auto) 79.1 % Lymphocytes (%) (Auto) 8.7 % Monocytes (%) (Auto) 8.3 % Eosinophils (%) (Auto) 3.1 % Basophils (%) (Auto) 0.3 % Neutrophils # (Auto) 8.23 1.4-6.5 K/uL Lymphocytes # (Auto) 0.90 1.2-3.4 K/uL Monocytes # (Auto) 0.86 0.11-0.59 K/uL Eosinophils # (Auto) 0.32 0-0.5 K/uL Basophils # (Auto) 0.03 0-0.2 K/uL RDW Standard Deviation 53.3 36.4-46.3 fL RDW Coefficient of Variation 15.8 11.5-14.5 % Immature Granulocyte % (Auto) 0.5 % Immature Granulocyte # (Auto) 0.05 0.00-0.02 K/uL Prothrombin Time 11.6 9.0-12.0 SECONDS Prothromb Time International Ratio 1.1 0.9-1.1 Sodium Level 133 136-145 mmol/L Potassium Level 3.9 3.5-5.1 mmol/L Chloride Level 99 98-107 mmol/L Carbon Dioxide Level 29 21-32 mmol/L Anion Gap 5.0 3-11 mmol/L Blood Urea Nitrogen 7 7-18 mg/dl Creatinine 0.92 0.60-1.40 mg/dl Est Creatinine Clear Calc Drug Dose 62.3 ml/min Estimated GFR () 96.6 Estimated GFR (Non- 83.4 BUN/Creatinine Ratio 7.7 10-20 Random Glucose 101 70-99 mg/dl Calcium Level 9.1 8.5-10.1 mg/dl Imp: Post bypass and foot debridement Plan: Doing well. Can send to rehab when ok with medical service.
[2017-12-02 15:15] VITALS: BP 117/61; PULSE 78; TEMP 36.4; O2SAT 97
[2017-12-02] MEDS: WARFARIN SOD 4 MG TAB PO SCH (15:42)
[2017-12-02] MEDS ORDERED: WARFARIN SOD 2.5 MG TAB PO SCH (16:00)
[2017-12-02] MEDS: ATORVASTATIN 40 MG TAB PO SCH (18:21)
[2017-12-02 22:36] VITALS: BP 120/64; PULSE 86; TEMP 36.6; O2SAT 96
[2017-12-03 07:50] VITALS: BP 137/70; PULSE 88; TEMP 36.3; O2SAT 97
[2017-12-03] MEDS: BOOST VANILLA PUDDING CUP PO SCH ×3 (08:30→17:45)
[2017-12-03] MEDS: BOOST VANILLA PO SCH ×3 (08:30→17:45)
--- NOTE | 2017-12-03 08:48 | Progress Note ---
Progress Note Date of Service: Dec 03, 2017. Subjective 72 yo m with multiple medical problems, s/p Right superficial femoral endarterectomy with bovine patch graft, Right femoral to peroneal instu bypass graft, and s/p R foot debridement, seen in f/u today. Pt states pain in R foot , but tolerable with medication. Problem List Medical Problems: (1) Change in mental status Status: Acute (2) Closed fracture of neck of left humerus Status: Acute (3) Dehydration Status: Acute (4) Dehydration Status: Acute (5) Dementia Status: Acute (6) Gangrene of toe Status: Acute (7) History of alcohol abuse Status: Chronic (8) Leukocytosis Status: Acute (9) Multiple contusions Status: Acute (10) STEMI (ST elevation myocardial infarction) Status: Acute (11) STEMI (ST elevation myocardial infarction) Status: Acute (12) UTI (urinary tract infection) Status: Acute (13) Wound of abdomen Status: Acute Objective Vital Signs Vital Signs Past 12 Hours Date Time Temp Pulse Resp B/P (MAP) Pulse Ox O2 Delivery O2 Flow Rate FiO2 12/02/17 22:50 Room Air 12/02/17 22:36 36.6 86 17 120/64 (82) 96 Room Air Exam CONST: A&O x3, NAD, chronically ill, frail appearing male EXT: RLE incisions c/d/i with ritesh. R foot wound + tenderness and edema. Minimal bloody drainage. Closed with sutures. No necrosis Laboratory and Microbiology Results Past 24 Hours Test 12/02/17 09:23 12/03/17 04:44 Range/Units White Blood Count 10.39 4.8-10.8 K/uL Red Blood Count 3.12 4.7-6.1 M/uL Hemoglobin 9.9 14.0-18.0 g/dL Hematocrit 28.9 42-52 % Mean Corpuscular Volume 92.6 80-100 fL Mean Corpuscular Hemoglobin 31.7 25-34 pg Mean Corpuscular Hemoglobin Concent 34.3 32-36 g/dl Platelet Count 375 130-400 K/uL Mean Platelet Volume 9.2 7.4-10.4 fL Neutrophils (%) (Auto) 79.1 % Lymphocytes (%) (Auto) 8.7 % Monocytes (%) (Auto) 8.3 % Eosinophils (%) (Auto) 3.1 % Basophils (%) (Auto) 0.3 % Neutrophils # (Auto) 8.23 1.4-6.5 K/uL Lymphocytes # (Auto) 0.90 1.2-3.4 K/uL Monocytes # (Auto) 0.86 0.11-0.59 K/uL Eosinophils # (Auto) 0.32 0-0.5 K/uL Basophils # (Auto) 0.03 0-0.2 K/uL RDW Standard Deviation 53.3 36.4-46.3 fL RDW Coefficient of Variation 15.8 11.5-14.5 % Immature Granulocyte % (Auto) 0.5 % Immature Granulocyte # (Auto) 0.05 0.00-0.02 K/uL Prothrombin Time 11.6 9.0-12.0 SECONDS Prothromb Time International Ratio 1.1 0.9-1.1 Sodium Level 133 136-145 mmol/L Potassium Level 3.9 3.5-5.1 mmol/L Chloride Level 99 98-107 mmol/L Carbon Dioxide Level 29 21-32 mmol/L Anion Gap 5.0 3-11 mmol/L Blood Urea Nitrogen 7 7-18 mg/dl Creatinine 0.92 0.60-1.40 mg/dl Est Creatinine Clear Calc Drug Dose 62.3 ml/min Estimated GFR () 96.6 Estimated GFR (Non- 83.4 BUN/Creatinine Ratio 7.7 10-20 Random Glucose 101 70-99 mg/dl Calcium Level 9.1 8.5-10.1 mg/dl ASSESSMENT and PLAN: s/p Right superficial femoral endarterectomy with bovine patch graft, Right femoral to peroneal instu bypass graft s/p RLE foot debridement Pt doing well post op. Must have R foot wounds covered with light dry dressing, then sock, then post op boot when ambulating. OK for d/c to rehab when ok with medicine. Discussed with Dr Gordon. Will see in office in 1 week.
[2017-12-03] MEDS: MAGNESIUM OXIDE 400 MG TAB PO SCH ×2 (10:27→20:34)
[2017-12-03] MEDS: SERTRALINE HCL 50 MG TAB PO SCH (10:28)
[2017-12-03] MEDS: FERROUS SULFATE 325 MG TAB PO SCH (10:28)
[2017-12-03] MEDS: RANITIDINE HCL 150 MG TAB PO SCH (10:28)
[2017-12-03] MEDS: CALCIUM 600MG + VIT D 400 IU TAB PO SCH ×2 (10:29→20:34)
[2017-12-03] MEDS: CYANOCOBALAMIN 500 MCG TAB (VIT B-12) PO SCH (10:30)
[2017-12-03] MEDS: THIAMINE HCL 100 MG TAB PO SCH (10:31)
[2017-12-03 10:33] LABS: HEMOGLOBIN 9.9 g/dL (14.0-18.0); MEAN CELL VOLUME 91.8 fL (80-100); MEAN CORPUSCULAR HEMOGLOBIN 31.3 pg (25-34); MEAN CORPUSCULAR HGB CONC 34.1 g/dl (32-36); MEAN PLATELET VOLUME 9.1 fL (7.4-10.4); PLATELET COUNT 383 K/uL (130-400); RED CELL DISTRIBUTION WIDTH CV 15.5 % (11.5-14.5); RED CELL DISTRIBUTION WIDTH SD 52.3 fL (36.4-46.3); WHITE BLOOD COUNT 10.93 K/uL (4.8-10.8)
[2017-12-03 10:49] LABS: CREATININE 0.94 mg/dl (0.60-1.40)
[2017-12-03 15:46] VITALS: BP 129/63; PULSE 82; TEMP 36.6; O2SAT 97
[2017-12-03] MEDS: ENOXAPARIN 40 MG/0.4 ML SYR SQ SCH ×2 (16:00→23:57)
[2017-12-03] MEDS: WARFARIN SOD 4 MG TAB PO SCH (16:02)
[2017-12-03] MEDS: ATORVASTATIN 40 MG TAB PO SCH (16:02)
[2017-12-03 23:03] VITALS: BP 107/62; PULSE 79; TEMP 36.4; O2SAT 99
[2017-12-04 06:22] LABS: INR 1.3 (0.9-1.1)
[2017-12-04 08:00] VITALS: BP 121/66; PULSE 89; TEMP 36.8; O2SAT 98
[2017-12-04] MEDS: BOOST VANILLA PUDDING CUP PO SCH ×3 (08:30→17:45)
[2017-12-04] MEDS: MAGNESIUM OXIDE 400 MG TAB PO SCH ×2 (08:59→21:46)
[2017-12-04] MEDS: BOOST VANILLA PO SCH ×3 (08:59→17:50)
[2017-12-04] MEDS: THIAMINE HCL 100 MG TAB PO SCH (09:00)
[2017-12-04] MEDS: SERTRALINE HCL 50 MG TAB PO SCH (09:00)
[2017-12-04] MEDS: FERROUS SULFATE 325 MG TAB PO SCH (09:00)
[2017-12-04] MEDS: CYANOCOBALAMIN 500 MCG TAB (VIT B-12) PO SCH (09:00)
[2017-12-04] MEDS: RANITIDINE HCL 150 MG TAB PO SCH (09:00)
[2017-12-04] MEDS: CALCIUM 600MG + VIT D 400 IU TAB PO SCH ×2 (09:00→21:46)
[2017-12-04] MEDS: OXYCODONE/ACETAMINOPHEN 5-325 TAB PO PRN (12:44)
[2017-12-04] MEDS: ENOXAPARIN 40 MG/0.4 ML SYR SQ SCH (12:45)
[2017-12-04 15:12] VITALS: BP 111/62; PULSE 78; TEMP 36.7; O2SAT 98
[2017-12-04] MEDS: WARFARIN SOD 4 MG TAB PO SCH (15:39)
[2017-12-04] MEDS: ATORVASTATIN 40 MG TAB PO SCH (17:48)
[2017-12-04 20:45] VITALS: BP 126/66; PULSE 77; TEMP 36.3; O2SAT 99
[2017-12-04 23:08] VITALS: BP 108/61; PULSE 81; TEMP 36.8; O2SAT 97
[2017-12-05] MEDS: ENOXAPARIN 40 MG/0.4 ML SYR SQ SCH ×2 (01:00→13:12)
--- NOTE | 2017-12-05 05:13 | Progress Note ---
Medicine Progress Note Date & Time of Visit: Dec 05, 2017 at 05:09. Subjective delayed entry date of service 12/04/17 seen resting in bed, watching TV states he feels fine foot pain well controlled denies chest pain, dyspnea, palpitations, dizziness no other symptoms Objective Last 8 Hrs Date Time Temp Pulse Resp B/P (MAP) Pulse Ox O2 Delivery O2 Flow Rate FiO2 12/04/17 23:25 Room Air 12/04/17 23:08 36.8 81 18 108/61 (77) 97 Room Air Physical Exam: General-oriented 3, speaks in sentences, no accessory muscle Eyes- anicteric Neck- no JVD Lungs- clear breath sounds Heart- regular rhythm; no murmur, normal rate Abdomen- normal bowel sounds, soft, nontender, non distendedn Extremities- ritesh on the surgical sites on the right leg intact, no bleeding/discharges, no edema dressing on the right foot intact no discharges no bleeding 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 Hussein Status post day #4 right toe debridement Lovenox 40mg BID, Coumadin continued, INR 1.3 Has finished 10 days of IV Zosyn Cleared for discharge per Vascular Surgery ANEMIA ACUTE BLOOD LOSS POST OP Hgb dropped to 6.7 Received 2 unit PRBC Stable around 10 monitor SUPRA THERAPEUTIC INR Elevated INR 4.9 on admission. Received Vit K INR 1.3 Continue Coumadin, increased to 4mg daily Lovenox 40mg BID CORONARY ARTERY DISEASE No anginal symptoms HYPERTENSION stable monitor COPD Respiratory status stable. CONFUSION Back to baseline ALCOHOL CONSUMPTION No signs of alcohol withdrawn. Continue gabapentin for alcohol withdrawn protocol VTE PROPHYLAXIS Lovenox 40mg BID On Coumadin also DISPOSITION Transition to Rehab/SNF PT/OT in progress- patient encouraged to participate Consultants: vascular Consultants: vascular Current Inpatient Medications: Current Inpatient Medications Medications (Trade) Dose Ordered Sig/Nieves Route Start Time Stop Time Status Last Admin Dose Admin Acetaminophen (Tylenol Tab) 650 mg Q4H PRN PO 11/19/17 10:00 12/19/17 09:59 11/23/17 04:55 650 MG Polyethylene (Miralax Powder Packet) 17 gm DAILY PRN PO 11/19/17 10:00 12/19/17 09:59 Atorvastatin Calcium (Lipitor Tab) 80 mg QDD PO 11/19/17 17:45 12/19/17 17:59 12/04/17 17:48 80 MG Calcium/Vitamin D (Caltrate Plus Tab) 1 tab BID PO 11/19/17 21:00 12/19/17 20:59 12/04/17 21:46 1 TAB Cyanocobalamin (Vitamin B-12 Tab) 1,000 mcg QAM PO 11/20/17 09:00 12/20/17 08:59 12/04/17 09:00 1,000 MCG Folic Acid (Folvite Tab) 1 mg QAM PO 11/20/17 09:00 12/20/17 08:59 12/04/17 09:00 1 MG Gabapentin (Neurontin Cap) 100 mg TID PO 11/19/17 14:00 12/19/17 13:59 Future Hold 11/21/17 19:43 100 MG Magnesium Oxide (Mag-Ox Tab) 400 mg BID PO 11/19/17 21:00 12/19/17 20:59 12/04/17 21:46 400 MG Ranitidine HCl (zANTac TAB) 150 mg QAM PO 11/20/17 09:00 12/20/17 08:59 12/04/17 09:00 150 MG Sertraline HCl (Zoloft Tab) 50 mg QAM PO 11/20/17 09:00 12/20/17 08:59 12/04/17 09:00 50 MG Ferrous Sulfate (Feosol Tab) 325 mg DAILY PO 11/20/17 09:00 12/20/17 08:59 12/04/17 09:00 325 MG Miscellaneous (Iv Fluids Completed) 1 ea PRN PRN N/A 11/19/17 12:00 11/19/18 11:59 Lorazepam (Ativan Tab) 1 mg ONE PRN PO 11/19/17 13:00 Lorazepam (Ativan Tab) 1 mg ONE PRN PO 11/21/17 20:15 Morphine Sulfate (MoRPHine SULFATE INJ) If PO analgesic is orde... Q2H PRN IV 11/24/17 18:30 12/08/17 18:29 11/24/17 23:15 2 MG Ondansetron HCl (Zofran Inj) 4 mg Q6H PRN IV 11/24/17 18:30 12/24/17 18:29 Morphine Sulfate (MoRPHine SULFATE INJ) If PO analgesic is orde... Q2H PRN IV 11/24/17 19:45 12/08/17 19:44 Enoxaparin Sodium (Lovenox Inj) 40 mg Q12H SQ 11/30/17 13:00 12/30/17 12:59 12/04/17 12:45 40 MG Enteral Nutritional Formula (Boost Pudding) 1 cup TIDM PO 11/30/17 17:45 12/30/17 17:44 12/02/17 12:30 1 CUP Warfarin Sodium (Coumadin Tab) 4 mg DAILY@16 PO 12/02/17 16:00 01/01/18 15:59 12/04/17 15:39 4 MG Thiamine HCl (Vitamin B-1 Tab) 100 mg QAM PO 12/03/17 09:00 01/02/18 08:59 12/04/17 09:00 100 MG Enteral Nutritional Formula (Boost) 1 can TIDM PO 12/02/17 17:45 01/01/18 17:44 12/04/17 17:50 1 CAN Oxycodone/ Acetaminophen (Percocet 5-325mg Tab) 1 tab Q6H PRN PO 12/04/17 12:00 12/18/17 11:59 12/04/17 12:44 1 TAB
[2017-12-05 07:19] VITALS: BP 126/63; PULSE 80; TEMP 36.7; O2SAT 98
[2017-12-05 07:51] LABS: INR 1.3 (0.9-1.1)
--- NOTE | 2017-12-05 08:02 | DIAGNOSTIC IMAGING REPORT ---
CT HEAD WITHOUT CONTRAST (CT) CLINICAL HISTORY: Head trauma. Head pain COMPARISON STUDY: August 11, 2017 TECHNIQUE: Axial CT of the brain is performed from the vertex to the skull base. IV contrast was not administered for this examination. A dose lowering technique was utilized adhering to the principles of ALARA. CT DOSE: 712.55 mGy.cm FINDINGS: No intra or extra-axial mass lesions are visualized. There is no CT evidence of acute cortical infarction. There is no evidence of midline shift. There is no acute hemorrhage. No calvarial fractures are visualized. There are patchy white matter hypodensities likely on a small vessel basis. 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 There is no evidence of acute sinusitis IMPRESSION: No acute intracranial findings Electronically signed by: Eladio Alvarado M.D. 12/05/2017 8:01 AM Dictated Date/Time: 12/05/2017 7:59 AM
--- NOTE | 2017-12-05 08:47 | Progress Note ---
Medicine Progress Note Date & Time of Visit: Dec 05, 2017 at 08:34. 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, lost his balance,fell on his buttocks, apparently hit his head on the door no loss of consciousness presently denies headache, dizziness, nausea, changes with vision, neuro deficits no other symptoms leg pain well controlled Objective Last 8 Hrs Date Time Temp Pulse Resp B/P (MAP) Pulse Ox O2 Delivery O2 Flow Rate FiO2 12/05/17 07:19 36.7 80 16 126/63 (84) 98 Room Air Physical Exam: General-oriented 3, speaks in sentences, no accessory muscle Eyes- anicteric Lungs- clear breath sounds, no rales no wheezes Heart- regular rhythm; no murmur, normal rate Abdomen- normal bowel sounds, soft, nontender, non distendedn Extremities- ritesh on the surgical sites on the right leg intact, no bleeding/discharges, no edema- healing well sutures on the right foot intact no discharges no bleeding, (+) tenderness 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 Hussein Status post day #5 right toe debridement Lovenox 40mg BID, Coumadin continued, INR 1.3 increase Coumadin Has finished 10 days of IV Zosyn Cleared for discharge per Vascular Surgery ANEMIA ACUTE BLOOD LOSS POST OP Hgb dropped to 6.7 Received 2 unit PRBC Stable around 10 monitor SUPRA THERAPEUTIC INR Elevated INR 4.9 on admission. Received Vit K INR 1.3 Continue Coumadin, increased to 5mg daily Lovenox 40mg BID S/P MECHANICAL FALL CT head: no hemorrhage patient denies headache, neuro symptoms, hip or extremity pain monitor Fall Precautions OOB as tolerated with assistance at all times check for Ortho VS CORONARY ARTERY DISEASE No anginal symptoms continue ASA, Statin HYPERTENSION stable monitor check for Ortho VS COPD Respiratory status stable. CONFUSION Back to baseline ALCOHOL CONSUMPTION No signs of alcohol withdrawal gabapentin for alcohol withdrawn protocol VTE PROPHYLAXIS Lovenox 40mg BID On Coumadin also DISPOSITION Transition to Rehab/SNF PT/OT in progress- patient encouraged to participate Consultants: vascular Consultants: vascular Current Inpatient Medications: Current Inpatient Medications Medications (Trade) Dose Ordered Sig/Nieves Route Start Time Stop Time Status Last Admin Dose Admin Acetaminophen (Tylenol Tab) 650 mg Q4H PRN PO 11/19/17 10:00 12/19/17 09:59 11/23/17 04:55 650 MG Polyethylene (Miralax Powder Packet) 17 gm DAILY PRN PO 11/19/17 10:00 12/19/17 09:59 Atorvastatin Calcium (Lipitor Tab) 80 mg QDD PO 11/19/17 17:45 12/19/17 17:59 12/04/17 17:48 80 MG Calcium/Vitamin D (Caltrate Plus Tab) 1 tab BID PO 11/19/17 21:00 12/19/17 20:59 12/04/17 21:46 1 TAB Cyanocobalamin (Vitamin B-12 Tab) 1,000 mcg QAM PO 11/20/17 09:00 12/20/17 08:59 12/04/17 09:00 1,000 MCG Folic Acid (Folvite Tab) 1 mg QAM PO 11/20/17 09:00 12/20/17 08:59 12/04/17 09:00 1 MG Gabapentin (Neurontin Cap) 100 mg TID PO 11/19/17 14:00 12/19/17 13:59 Future Hold 11/21/17 19:43 100 MG Magnesium Oxide (Mag-Ox Tab) 400 mg BID PO 11/19/17 21:00 12/19/17 20:59 12/04/17 21:46 400 MG Ranitidine HCl (zANTac TAB) 150 mg QAM PO 11/20/17 09:00 12/20/17 08:59 12/04/17 09:00 150 MG Sertraline HCl (Zoloft Tab) 50 mg QAM PO 11/20/17 09:00 12/20/17 08:59 12/04/17 09:00 50 MG Ferrous Sulfate (Feosol Tab) 325 mg DAILY PO 11/20/17 09:00 12/20/17 08:59 12/04/17 09:00 325 MG Miscellaneous (Iv Fluids Completed) 1 ea PRN PRN N/A 11/19/17 12:00 11/19/18 11:59 Lorazepam (Ativan Tab) 1 mg ONE PRN PO 11/19/17 13:00 Lorazepam (Ativan Tab) 1 mg ONE PRN PO 11/21/17 20:15 Morphine Sulfate (MoRPHine SULFATE INJ) If PO analgesic is orde... Q2H PRN IV 11/24/17 18:30 12/08/17 18:29 11/24/17 23:15 2 MG Ondansetron HCl (Zofran Inj) 4 mg Q6H PRN IV 11/24/17 18:30 12/24/17 18:29 Morphine Sulfate (MoRPHine SULFATE INJ) If PO analgesic is orde... Q2H PRN IV 11/24/17 19:45 12/08/17 19:44 Enoxaparin Sodium (Lovenox Inj) 40 mg Q12H SQ 11/30/17 13:00 12/30/17 12:59 12/04/17 12:45 40 MG Enteral Nutritional Formula (Boost Pudding) 1 cup TIDM PO 11/30/17 17:45 12/30/17 17:44 12/02/17 12:30 1 CUP Warfarin Sodium (Coumadin Tab) 4 mg DAILY@16 PO 12/02/17 16:00 01/01/18 15:59 12/04/17 15:39 4 MG Thiamine HCl (Vitamin B-1 Tab) 100 mg QAM PO 12/03/17 09:00 01/02/18 08:59 12/04/17 09:00 100 MG Enteral Nutritional Formula (Boost) 1 can TIDM PO 12/02/17 17:45 01/01/18 17:44 12/04/17 17:50 1 CAN Oxycodone/ Acetaminophen (Percocet 5-325mg Tab) 1 tab Q6H PRN PO 12/04/17 12:00 12/18/17 11:59 12/04/17 12:44 1 TAB
[2017-12-05] MEDS: BOOST VANILLA PO SCH ×3 (09:15→17:49)
[2017-12-05] MEDS: BOOST VANILLA PUDDING CUP PO SCH ×3 (09:15→17:48)
[2017-12-05] MEDS: FERROUS SULFATE 325 MG TAB PO SCH (09:16)
[2017-12-05] MEDS: THIAMINE HCL 100 MG TAB PO SCH (09:16)
[2017-12-05] MEDS: CYANOCOBALAMIN 500 MCG TAB (VIT B-12) PO SCH (09:16)
[2017-12-05] MEDS: MAGNESIUM OXIDE 400 MG TAB PO SCH ×2 (09:16→20:08)
[2017-12-05] MEDS: CALCIUM 600MG + VIT D 400 IU TAB PO SCH ×2 (09:16→20:08)
[2017-12-05] MEDS: RANITIDINE HCL 150 MG TAB PO SCH (09:16)
[2017-12-05] MEDS: SERTRALINE HCL 50 MG TAB PO SCH (09:16)
[2017-12-05] MEDS: OXYCODONE/ACETAMINOPHEN 5-325 TAB PO PRN (10:39)
[2017-12-05] MEDS: ASPIRIN 81 MG ECTAB PO SCH (10:40)
[2017-12-05 15:07] VITALS: BP 102/39; PULSE 73; TEMP 36.4; O2SAT 98
[2017-12-05 15:14] VITALS: BP 104/44
[2017-12-05] MEDS: WARFARIN SOD 5 MG TAB PO SCH (15:16)
[2017-12-05 16:26] VITALS: BP 122/64
[2017-12-05] MEDS: ATORVASTATIN 40 MG TAB PO SCH (17:48)
[2017-12-05 23:10] VITALS: BP 111/53; PULSE 70; TEMP 36.4; O2SAT 96
--- NOTE | 2017-12-05 23:13 | Progress Note ---
Progress Note Date of Service Dec 04, 2017. LATE ENTRY Paged to the floor that the patient had fallen and had relayed to the RN that he hit his head. Went to see the patient who stated he thinks he slipped and fell while he got up and was trying to open the cabinet near the computer. He states he fell back but managed to brace himself in his fall and has no pain anywhere. He states he bumped his head but has no pain. He denies any BELL or dizziness. He was found sitting up on the floor by staff and the fall was not witnessed. The patient is oriented x2 but per notes is forgetful at times. A quick survery revealed no areas of swelling or tenderness, no ecchymosis. PERRL , EOMI. No changes in mentation. No additional calls overnight.
[2017-12-06] MEDS: ENOXAPARIN 40 MG/0.4 ML SYR SQ SCH ×3 (01:00→13:24)
[2017-12-06 06:50] VITALS: BP 117/46; PULSE 72; TEMP 36.4; O2SAT 97
[2017-12-06] MEDS: BOOST VANILLA PUDDING CUP PO SCH ×3 (08:30→17:45)
[2017-12-06] MEDS: BOOST VANILLA PO SCH ×3 (08:30→18:11)
[2017-12-06] MEDS: OXYCODONE/ACETAMINOPHEN 5-325 TAB PO PRN ×2 (10:59→17:37)
[2017-12-06] MEDS: CALCIUM 600MG + VIT D 400 IU TAB PO SCH ×2 (11:02→20:50)
[2017-12-06] MEDS: ASPIRIN 81 MG ECTAB PO SCH (11:02)
[2017-12-06] MEDS: MAGNESIUM OXIDE 400 MG TAB PO SCH ×2 (11:03→20:51)
[2017-12-06] MEDS: FERROUS SULFATE 325 MG TAB PO SCH (11:03)
[2017-12-06] MEDS: THIAMINE HCL 100 MG TAB PO SCH (11:04)
--- NOTE | 2017-12-06 11:04 | Progress Note ---
Medicine Progress Note Date & Time of Visit: Dec 06, 2017 at 10:57. Subjective seen resting in bedside chair comfortable states he feels fine overall denies dizziness, weakness, chest pain, dyspnea leg and foot pain well controlled denies other symptoms Objective Last 8 Hrs Date Time Temp Pulse Resp B/P (MAP) Pulse Ox O2 Delivery O2 Flow Rate FiO2 12/06/17 08:00 Room Air 12/06/17 06:50 36.4 72 17 117/46 (69) 97 Room Air Physical Exam: General-oriented 3, speaks in sentences, no accessory muscle Eyes- anicteric Lungs- clear breath sounds, no wheezes, no rales Heart- regular rhythm; no murmur, normal rate Abdomen- normal bowel sounds, soft, nontender, non distended Extremities- ritesh on the surgical sites on the right leg intact, no bleeding/discharges, no edema- healing well sutures on the right foot intact no discharges no bleeding, (+) tenderness- the same 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 Hussein Status post day #6 right toe debridement Lovenox 40mg BID, Coumadin continued, INR 1.3--> PENDING increaseD Coumadin Has finished 10 days of IV Zosyn Cleared for discharge per Vascular Surgery ANEMIA ACUTE BLOOD LOSS POST OP Hgb dropped to 6.7 Received 2 unit PRBC Stable around 10 monitor SUPRA THERAPEUTIC INR Elevated INR 4.9 on admission. Received Vit K INR 1.3--> PENDING Continue Coumadin, increased to 5mg daily Lovenox 40mg BID S/P MECHANICAL FALL CT head: no hemorrhage patient denies headache, neuro symptoms, hip or extremity pain monitor Fall Precautions OOB WITH ASSISTANCE CORONARY ARTERY DISEASE No anginal symptoms continue ASA, Statin HYPERTENSION stable monitor COPD Respiratory status stable. CONFUSION Back to baseline ALCOHOL CONSUMPTION No signs of alcohol withdrawal gabapentin for alcohol withdrawn protocol VTE PROPHYLAXIS Lovenox 40mg BID On Coumadin also DISPOSITION Transition to Rehab/SNF when accepted PT/OT in progress- patient encouraged to participate Consultants: vascular Consultants: vascular Current Inpatient Medications: Current Inpatient Medications Medications (Trade) Dose Ordered Sig/Nieves Route Start Time Stop Time Status Last Admin Dose Admin Acetaminophen (Tylenol Tab) 650 mg Q4H PRN PO 11/19/17 10:00 12/19/17 09:59 11/23/17 04:55 650 MG Polyethylene (Miralax Powder Packet) 17 gm DAILY PRN PO 11/19/17 10:00 12/19/17 09:59 Atorvastatin Calcium (Lipitor Tab) 80 mg QDD PO 11/19/17 17:45 12/19/17 17:59 12/05/17 17:48 80 MG Calcium/Vitamin D (Caltrate Plus Tab) 1 tab BID PO 11/19/17 21:00 12/19/17 20:59 12/05/17 20:08 1 TAB Cyanocobalamin (Vitamin B-12 Tab) 1,000 mcg QAM PO 11/20/17 09:00 12/20/17 08:59 12/05/17 09:16 1,000 MCG Folic Acid (Folvite Tab) 1 mg QAM PO 11/20/17 09:00 12/20/17 08:59 12/05/17 09:16 1 MG Gabapentin (Neurontin Cap) 100 mg TID PO 11/19/17 14:00 12/19/17 13:59 Future Hold 11/21/17 19:43 100 MG Magnesium Oxide (Mag-Ox Tab) 400 mg BID PO 11/19/17 21:00 12/19/17 20:59 12/05/17 20:08 400 MG Ranitidine HCl (zANTac TAB) 150 mg QAM PO 11/20/17 09:00 12/20/17 08:59 12/05/17 09:16 150 MG Sertraline HCl (Zoloft Tab) 50 mg QAM PO 11/20/17 09:00 12/20/17 08:59 12/05/17 09:16 50 MG Ferrous Sulfate (Feosol Tab) 325 mg DAILY PO 11/20/17 09:00 12/20/17 08:59 12/05/17 09:16 325 MG Miscellaneous (Iv Fluids Completed) 1 ea PRN PRN N/A 11/19/17 12:00 11/19/18 11:59 Lorazepam (Ativan Tab) 1 mg ONE PRN PO 11/19/17 13:00 Lorazepam (Ativan Tab) 1 mg ONE PRN PO 11/21/17 20:15 Morphine Sulfate (MoRPHine SULFATE INJ) If PO analgesic is orde... Q2H PRN IV 11/24/17 18:30 12/08/17 18:29 11/24/17 23:15 2 MG Ondansetron HCl (Zofran Inj) 4 mg Q6H PRN IV 11/24/17 18:30 12/24/17 18:29 Morphine Sulfate (MoRPHine SULFATE INJ) If PO analgesic is orde... Q2H PRN IV 11/24/17 19:45 12/08/17 19:44 Enoxaparin Sodium (Lovenox Inj) 40 mg Q12H SQ 11/30/17 13:00 12/30/17 12:59 12/05/17 13:12 40 MG Enteral Nutritional Formula (Boost Pudding) 1 cup TIDM PO 11/30/17 17:45 12/30/17 17:44 12/05/17 17:48 1 CUP Thiamine HCl (Vitamin B-1 Tab) 100 mg QAM PO 12/03/17 09:00 01/02/18 08:59 12/05/17 09:16 100 MG Enteral Nutritional Formula (Boost) 1 can TIDM PO 12/02/17 17:45 01/01/18 17:44 12/05/17 17:49 1 CAN Oxycodone/ Acetaminophen (Percocet 5-325mg Tab) 1 tab Q6H PRN PO 12/04/17 12:00 12/18/17 11:59 12/05/17 10:39 1 TAB Warfarin Sodium (Coumadin Tab) 5 mg DAILY@16 PO 12/05/17 16:00 01/01/18 15:59 12/05/17 15:16 5 MG Aspirin (Ecotrin Tab) 81 mg QAM PO 12/05/17 09:00 01/04/18 08:59 12/05/17 10:40 81 MG
[2017-12-06] MEDS: CYANOCOBALAMIN 500 MCG TAB (VIT B-12) PO SCH (11:05)
[2017-12-06] MEDS: RANITIDINE HCL 150 MG TAB PO SCH (11:05)
[2017-12-06] MEDS: SERTRALINE HCL 50 MG TAB PO SCH (11:05)
[2017-12-06 12:45] VITALS: BP 112/69; PULSE 78; O2SAT 96
[2017-12-06 15:10] VITALS: BP 103/44; PULSE 65; TEMP 36.6; O2SAT 98
[2017-12-06] MEDS: WARFARIN SOD 5 MG TAB PO SCH (16:14)
[2017-12-06] MEDS: ATORVASTATIN 40 MG TAB PO SCH (18:11)
[2017-12-06 23:00] VITALS: BP 118/51; PULSE 77; TEMP 36.9; O2SAT 96
[2017-12-07] MEDS: ENOXAPARIN 40 MG/0.4 ML SYR SQ SCH ×2 (00:47→13:50)
[2017-12-07 06:39] LABS: INR 1.7 (0.9-1.1)
[2017-12-07 07:30] VITALS: BP 119/62; PULSE 79; TEMP 36.9; O2SAT 96
[2017-12-07] MEDS: BOOST VANILLA PO SCH ×3 (08:30→17:45)
[2017-12-07] MEDS: BOOST VANILLA PUDDING CUP PO SCH ×3 (08:30→17:45)
--- NOTE | 2017-12-07 10:13 | Progress Note ---
Progress Note Date of Service: Dec 07, 2017. Subjective 72 yo m with multiple medical problems, s/p RLE fem-pop in situ BPG and RLE foot debridement, seen in f/u today. Pt states R leg is sore "sometimes," but denies any other new complaints. Problem List Medical Problems: (1) Change in mental status Status: Acute (2) Closed fracture of neck of left humerus Status: Acute (3) Dehydration Status: Acute (4) Dehydration Status: Acute (5) Dementia Status: Acute (6) Gangrene of toe Status: Acute (7) History of alcohol abuse Status: Chronic (8) Leukocytosis Status: Acute (9) Multiple contusions Status: Acute (10) STEMI (ST elevation myocardial infarction) Status: Acute (11) STEMI (ST elevation myocardial infarction) Status: Acute (12) UTI (urinary tract infection) Status: Acute (13) Wound of abdomen Status: Acute Objective Vital Signs Vital Signs Past 12 Hours Date Time Temp Pulse Resp B/P (MAP) Pulse Ox O2 Delivery O2 Flow Rate FiO2 12/07/17 07:30 36.9 79 16 119/62 (81) 96 Room Air 12/06/17 23:30 Room Air 12/06/17 23:00 36.9 77 17 118/51 (73) 96 Room Air Exam CONST: A&O x3, NAD, chronically ill appearing EXT: RLE incisions C/D/I with ritesh, sutures. +3 pulse in RLE BPG, toes arm and pink. debridement site intact, no edema or erythema or drainage noted. Laboratory and Microbiology Results Past 24 Hours Test 12/07/17 05:30 Range/Units Prothrombin Time 17.2 9.0-12.0 SECONDS Prothromb Time International Ratio 1.7 0.9-1.1 ASSESSMENT and PLAN: s/p RLE fem-pop in situ BPG s/p RLE foot debridement Severe PAD with gangrnee Pt doing well post op. OK for d/c to rehab when medically stable. Please call if needed. Will see in office next week for suture/staple removal.
[2017-12-07] MEDS: CALCIUM 600MG + VIT D 400 IU TAB PO SCH ×2 (10:44→20:23)
[2017-12-07] MEDS: RANITIDINE HCL 150 MG TAB PO SCH (10:48)
[2017-12-07] MEDS: SERTRALINE HCL 50 MG TAB PO SCH (10:48)
[2017-12-07] MEDS: FERROUS SULFATE 325 MG TAB PO SCH (10:48)
[2017-12-07] MEDS: MAGNESIUM OXIDE 400 MG TAB PO SCH ×2 (10:49→20:23)
[2017-12-07] MEDS: THIAMINE HCL 100 MG TAB PO SCH (10:49)
[2017-12-07] MEDS: ASPIRIN 81 MG ECTAB PO SCH (10:50)
[2017-12-07] MEDS: CYANOCOBALAMIN 500 MCG TAB (VIT B-12) PO SCH (10:51)
[2017-12-07 14:50] VITALS: BP 107/53; PULSE 76; TEMP 36.3; O2SAT 98
--- NOTE | 2017-12-07 16:58 | Progress Note ---
Subjective Date of Service: Dec 07, 2017. Subjective Pt evaluation today including: conversation w/ patient, physical exam, lab review, review of studies, review of inpatient medication list Saw/examined the patient in room 385 States he's doing fine, no lower extremity pain Ambulating okay Problem List Medical Problems: (1) Change in mental status Status: Acute (2) Closed fracture of neck of left humerus Status: Acute (3) Dehydration Status: Acute (4) Dehydration Status: Acute (5) Dementia Status: Acute (6) Gangrene of toe Status: Acute (7) History of alcohol abuse Status: Chronic (8) Leukocytosis Status: Acute (9) Multiple contusions Status: Acute (10) STEMI (ST elevation myocardial infarction) Status: Acute (11) STEMI (ST elevation myocardial infarction) Status: Acute (12) UTI (urinary tract infection) Status: Acute (13) Wound of abdomen Status: Acute Review of Systems Constitutional: + weakness Musculoskeletal: No joint pain, No muscle pain Heme: No abnormal bleeding/bruising Medications Current Inpatient Medications Medications (Trade) Dose Ordered Sig/Nieves Route Start Time Stop Time Status Last Admin Dose Admin Acetaminophen (Tylenol Tab) 650 mg Q4H PRN PO 11/19/17 10:00 12/19/17 09:59 11/23/17 04:55 650 MG Polyethylene (Miralax Powder Packet) 17 gm DAILY PRN PO 11/19/17 10:00 12/19/17 09:59 Atorvastatin Calcium (Lipitor Tab) 80 mg QDD PO 11/19/17 17:45 12/19/17 17:59 12/06/17 18:11 80 MG Calcium/Vitamin D (Caltrate Plus Tab) 1 tab BID PO 11/19/17 21:00 12/19/17 20:59 12/07/17 10:44 1 TAB Cyanocobalamin (Vitamin B-12 Tab) 1,000 mcg QAM PO 11/20/17 09:00 12/20/17 08:59 12/07/17 10:51 1,000 MCG Folic Acid (Folvite Tab) 1 mg QAM PO 11/20/17 09:00 12/20/17 08:59 12/07/17 10:50 1 MG Gabapentin (Neurontin Cap) 100 mg TID PO 11/19/17 14:00 12/19/17 13:59 Future Hold 11/21/17 19:43 100 MG Magnesium Oxide (Mag-Ox Tab) 400 mg BID PO 11/19/17 21:00 12/19/17 20:59 12/07/17 10:49 400 MG Ranitidine HCl (zANTac TAB) 150 mg QAM PO 11/20/17 09:00 12/20/17 08:59 12/07/17 10:48 150 MG Sertraline HCl (Zoloft Tab) 50 mg QAM PO 11/20/17 09:00 12/20/17 08:59 12/07/17 10:48 50 MG Ferrous Sulfate (Feosol Tab) 325 mg DAILY PO 11/20/17 09:00 12/20/17 08:59 12/07/17 10:48 325 MG Miscellaneous (Iv Fluids Completed) 1 ea PRN PRN N/A 11/19/17 12:00 11/19/18 11:59 Lorazepam (Ativan Tab) 1 mg ONE PRN PO 11/19/17 13:00 Lorazepam (Ativan Tab) 1 mg ONE PRN PO 11/21/17 20:15 Morphine Sulfate (MoRPHine SULFATE INJ) If PO analgesic is orde... Q2H PRN IV 11/24/17 18:30 12/08/17 18:29 11/24/17 23:15 2 MG Ondansetron HCl (Zofran Inj) 4 mg Q6H PRN IV 11/24/17 18:30 12/24/17 18:29 Morphine Sulfate (MoRPHine SULFATE INJ) If PO analgesic is orde... Q2H PRN IV 11/24/17 19:45 12/08/17 19:44 Enoxaparin Sodium (Lovenox Inj) 40 mg Q12H SQ 11/30/17 13:00 12/30/17 12:59 12/07/17 13:50 40 MG Enteral Nutritional Formula (Boost Pudding) 1 cup TIDM PO 11/30/17 17:45 12/30/17 17:44 12/05/17 17:48 1 CUP Thiamine HCl (Vitamin B-1 Tab) 100 mg QAM PO 12/03/17 09:00 01/02/18 08:59 12/07/17 10:49 100 MG Enteral Nutritional Formula (Boost) 1 can TIDM PO 12/02/17 17:45 01/01/18 17:44 12/07/17 12:43 1 CAN Oxycodone/ Acetaminophen (Percocet 5-325mg Tab) 1 tab Q6H PRN PO 12/04/17 12:00 12/18/17 11:59 12/06/17 17:37 1 TAB Warfarin Sodium (Coumadin Tab) 5 mg DAILY@16 PO 12/05/17 16:00 01/01/18 15:59 12/06/17 16:14 5 MG Aspirin (Ecotrin Tab) 81 mg QAM PO 12/05/17 09:00 01/04/18 08:59 12/07/17 10:50 81 MG Objective Vital Signs Date Time Temp Pulse Resp B/P (MAP) Pulse Ox O2 Delivery O2 Flow Rate FiO2 12/07/17 15:20 Room Air 12/07/17 14:50 36.3 76 18 107/53 (71) 98 Room Air 12/07/17 08:00 Room Air 12/07/17 07:30 36.9 79 16 119/62 (81) 96 Room Air 12/06/17 23:30 Room Air 12/06/17 23:00 36.9 77 17 118/51 (73) 96 Room Air Physical Exam General Appearance: no apparent distress, + cachetic, + thin Respiratory/Chest: no respiratory distress, no accessory muscle use Extremities: + pertinent finding (R LE inner calf with ritesh, well healing; R foot debridement) Laboratory Results Last 24 Hours Test 12/07/17 05:30 Prothrombin Time 17.2 SECONDS Prothromb Time International Ratio 1.7 Assessment and Plan PERIPHERAL VASCULAR DISEASE Gangrene of toes in Right foot 12/07 patient is doing well abx. completed s/p bypass on RLE appreciate vascular input plan to d/c to SNF when able, case management aware 12/06 S/P day #10 right superficial femoral endarterectomy with bovine patch graft, Right femoral to peroneal in situ bypass graft by dr. Hussein Status post day #6 right toe debridement Lovenox 40mg BID, Coumadin continued, INR 1.3--> PENDING increaseD Coumadin Has finished 10 days of IV Zosyn Cleared for discharge per Vascular Surgery ANEMIA ACUTE BLOOD LOSS POST OP Hgb dropped to 6.7 Received 2 unit PRBC Stable around 10 monitor SUPRA THERAPEUTIC INR Elevated INR 4.9 on admission. Received Vit K INR 1.3--> PENDING Continue Coumadin, increased to 5mg daily Lovenox 40mg BID S/P MECHANICAL FALL CT head: no hemorrhage patient denies headache, neuro symptoms, hip or extremity pain monitor Fall Precautions OOB WITH ASSISTANCE CORONARY ARTERY DISEASE No anginal symptoms continue ASA, Statin HYPERTENSION stable monitor COPD Respiratory status stable. CONFUSION Back to baseline ALCOHOL CONSUMPTION No signs of alcohol withdrawal gabapentin for alcohol withdrawn protocol VTE PROPHYLAXIS Lovenox 40mg BID On Coumadin also DISPOSITION Transition to Rehab/SNF when accepted PT/OT in progress- patient encouraged to participate
[2017-12-07] MEDS: ATORVASTATIN 40 MG TAB PO SCH (17:04)
[2017-12-07] MEDS: WARFARIN SOD 5 MG TAB PO SCH (17:06)
[2017-12-07 22:45] VITALS: BP 105/58; PULSE 94; TEMP 36.9; O2SAT 95
[2017-12-07 22:49] VITALS: BP 104/62; PULSE 97
[2017-12-08] MEDS: ENOXAPARIN 40 MG/0.4 ML SYR SQ SCH ×2 (01:00→13:11)
[2017-12-08] MEDS: RASPBERRY SYRUP 5 ML UDP PO SCH ×4 (01:50→18:57)
[2017-12-08] MEDS: VANCOMYCIN HCL 125 MG/2.5ML SOLN PO SCH ×4 (01:50→18:57)
[2017-12-08 07:02] VITALS: BP 112/55; PULSE 90; TEMP 36.6; O2SAT 97
[2017-12-08 07:16] LABS: HEMATOCRIT 28.7 % (42-52); MEAN CELL VOLUME 89.4 fL (80-100); MEAN CORPUSCULAR HEMOGLOBIN 31.2 pg (25-34); MEAN CORPUSCULAR HGB CONC 34.8 g/dl (32-36); PLATELET COUNT 360 K/uL (130-400); RED CELL DISTRIBUTION WIDTH CV 15.4 % (11.5-14.5); RED CELL DISTRIBUTION WIDTH SD 50.2 fL (36.4-46.3); WHITE BLOOD COUNT 26.22 K/uL (4.8-10.8)
[2017-12-08 07:29] LABS: INR 1.8 (0.9-1.1)
[2017-12-08 07:51] LABS: CALCIUM 8.9 mg/dl (8.5-10.1); CREATININE 1.03 mg/dl (0.60-1.40); POTASSIUM 3.3 mmol/L (3.5-5.1)
[2017-12-08] MEDS: BOOST VANILLA PUDDING CUP PO SCH ×3 (08:30→17:45)
[2017-12-08] MEDS: BOOST VANILLA PO SCH ×3 (08:30→17:55)
[2017-12-08] MEDS: CALCIUM 600MG + VIT D 400 IU TAB PO SCH ×2 (09:43→21:02)
[2017-12-08] MEDS: ASPIRIN 81 MG ECTAB PO SCH (09:43)
[2017-12-08] MEDS: FERROUS SULFATE 325 MG TAB PO SCH (09:44)
[2017-12-08] MEDS: MAGNESIUM OXIDE 400 MG TAB PO SCH ×2 (09:44→21:02)
[2017-12-08] MEDS: THIAMINE HCL 100 MG TAB PO SCH (09:45)
[2017-12-08] MEDS: SERTRALINE HCL 50 MG TAB PO SCH (09:46)
[2017-12-08] MEDS: RANITIDINE HCL 150 MG TAB PO SCH (09:46)
[2017-12-08] MEDS: CYANOCOBALAMIN 500 MCG TAB (VIT B-12) PO SCH (09:46)
[2017-12-08 14:54] VITALS: BP 110/54; PULSE 79; TEMP 36.5; O2SAT 98
[2017-12-08] MEDS: WARFARIN SOD 5 MG TAB PO SCH (15:28)
[2017-12-08 15:30] VITALS: O2SAT 98
[2017-12-08] MEDS: ATORVASTATIN 40 MG TAB PO SCH (17:52)
[2017-12-08] MEDS ORDERED: POTASSIUM CHLORIDE 20 MEQ TABCR PO STA (19:06)
--- NOTE | 2017-12-08 19:16 | Progress Note ---
Subjective Date of Service: Dec 08, 2017. Subjective Pt evaluation today including: conversation w/ patient, physical exam, lab review, review of studies, review of inpatient medication list Saw/examined the patient in room 385 +weak +diarrhea all night, no episodes in the AM today (12/08) Problem List Medical Problems: (1) Change in mental status Status: Acute (2) Closed fracture of neck of left humerus Status: Acute (3) Dehydration Status: Acute (4) Dehydration Status: Acute (5) Dementia Status: Acute (6) Gangrene of toe Status: Acute (7) History of alcohol abuse Status: Chronic (8) Leukocytosis Status: Acute (9) Multiple contusions Status: Acute (10) STEMI (ST elevation myocardial infarction) Status: Acute (11) STEMI (ST elevation myocardial infarction) Status: Acute (12) UTI (urinary tract infection) Status: Acute (13) Wound of abdomen Status: Acute Review of Systems Constitutional: + weakness, No fever, No chills Abdomen: + diarrhea, No pain, No nausea, No vomiting, No constipation Medications Current Inpatient Medications Medications (Trade) Dose Ordered Sig/Nieves Route Start Time Stop Time Status Last Admin Dose Admin Acetaminophen (Tylenol Tab) 650 mg Q4H PRN PO 11/19/17 10:00 12/19/17 09:59 11/23/17 04:55 650 MG Polyethylene (Miralax Powder Packet) 17 gm DAILY PRN PO 11/19/17 10:00 12/19/17 09:59 Atorvastatin Calcium (Lipitor Tab) 80 mg QDD PO 11/19/17 17:45 12/19/17 17:59 12/08/17 17:52 80 MG Calcium/Vitamin D (Caltrate Plus Tab) 1 tab BID PO 11/19/17 21:00 12/19/17 20:59 12/08/17 09:43 1 TAB Cyanocobalamin (Vitamin B-12 Tab) 1,000 mcg QAM PO 11/20/17 09:00 12/20/17 08:59 12/08/17 09:46 1,000 MCG Folic Acid (Folvite Tab) 1 mg QAM PO 11/20/17 09:00 12/20/17 08:59 12/08/17 09:47 1 MG Gabapentin (Neurontin Cap) 100 mg TID PO 11/19/17 14:00 12/19/17 13:59 Future Hold 11/21/17 19:43 100 MG Magnesium Oxide (Mag-Ox Tab) 400 mg BID PO 11/19/17 21:00 12/19/17 20:59 12/08/17 09:44 400 MG Ranitidine HCl (zANTac TAB) 150 mg QAM PO 11/20/17 09:00 12/20/17 08:59 12/08/17 09:46 150 MG Sertraline HCl (Zoloft Tab) 50 mg QAM PO 11/20/17 09:00 12/20/17 08:59 12/08/17 09:46 50 MG Ferrous Sulfate (Feosol Tab) 325 mg DAILY PO 11/20/17 09:00 12/20/17 08:59 12/08/17 09:44 325 MG Miscellaneous (Iv Fluids Completed) 1 ea PRN PRN N/A 11/19/17 12:00 11/19/18 11:59 Lorazepam (Ativan Tab) 1 mg ONE PRN PO 11/19/17 13:00 Lorazepam (Ativan Tab) 1 mg ONE PRN PO 11/21/17 20:15 Ondansetron HCl (Zofran Inj) 4 mg Q6H PRN IV 11/24/17 18:30 12/24/17 18:29 Morphine Sulfate (MoRPHine SULFATE INJ) If PO analgesic is orde... Q2H PRN IV 11/24/17 19:45 12/08/17 19:44 Enoxaparin Sodium (Lovenox Inj) 40 mg Q12H SQ 11/30/17 13:00 12/30/17 12:59 12/08/17 13:11 40 MG Enteral Nutritional Formula (Boost Pudding) 1 cup TIDM PO 11/30/17 17:45 12/30/17 17:44 12/05/17 17:48 1 CUP Thiamine HCl (Vitamin B-1 Tab) 100 mg QAM PO 12/03/17 09:00 01/02/18 08:59 12/08/17 09:45 100 MG Enteral Nutritional Formula (Boost) 1 can TIDM PO 12/02/17 17:45 01/01/18 17:44 12/08/17 17:55 1 CAN Oxycodone/ Acetaminophen (Percocet 5-325mg Tab) 1 tab Q6H PRN PO 12/04/17 12:00 12/18/17 11:59 12/06/17 17:37 1 TAB Warfarin Sodium (Coumadin Tab) 5 mg DAILY@16 PO 12/05/17 16:00 01/01/18 15:59 12/08/17 15:28 5 MG Aspirin (Ecotrin Tab) 81 mg QAM PO 12/05/17 09:00 01/04/18 08:59 12/08/17 09:43 81 MG Vancomycin HCl (Vancomycin Oral Soln) 125 mg Q6H PO 12/08/17 01:00 12/22/17 00:59 12/08/17 18:57 125 MG Raspberry (Raspberry Syrup 5ml Cup) 5 ml Q6H PO 12/08/17 01:00 12/22/17 00:59 12/08/17 18:57 5 ML Potassium Chloride (Klor-Con Tab) 20 meq NOW STAT PO 12/08/17 19:06 12/08/17 19:07 UNV Objective Vital Signs Date Time Temp Pulse Resp B/P (MAP) Pulse Ox O2 Delivery O2 Flow Rate FiO2 12/08/17 15:30 98 Room Air 12/08/17 14:54 36.5 79 18 110/54 (72) 98 Room Air 12/08/17 07:40 Room Air 12/08/17 07:02 36.6 90 15 112/55 (74) 97 Room Air 12/07/17 23:45 Room Air 12/07/17 22:49 97 104/62 (76) 12/07/17 22:45 36.9 94 18 105/58 (74) 95 Room Air Physical Exam General Appearance: no apparent distress Respiratory/Chest: no respiratory distress, no accessory muscle use Cardiovascular: regular rate, rhythm, no edema, no murmur Extremities: + pertinent finding (R sided ritesh on calf noted, well healing, no swelling/erythema) Laboratory Results Last 24 Hours Test 12/08/17 07:01 White Blood Count 26.22 K/uL Red Blood Count 3.21 M/uL Hemoglobin 10.0 g/dL Hematocrit 28.7 % Mean Corpuscular Volume 89.4 fL Mean Corpuscular Hemoglobin 31.2 pg Mean Corpuscular Hemoglobin Concent 34.8 g/dl RDW Standard Deviation 50.2 fL RDW Coefficient of Variation 15.4 % Platelet Count 360 K/uL Mean Platelet Volume 9.0 fL Prothrombin Time 18.4 SECONDS Prothromb Time International Ratio 1.8 Sodium Level 130 mmol/L Potassium Level 3.3 mmol/L Chloride Level 96 mmol/L Carbon Dioxide Level 25 mmol/L Anion Gap 9.0 mmol/L Blood Urea Nitrogen 8 mg/dl Creatinine 1.03 mg/dl Est Creatinine Clear Calc Drug Dose 57.0 ml/min Estimated GFR () 84.3 Estimated GFR (Non- 72.7 BUN/Creatinine Ratio 8.0 Random Glucose 126 mg/dl Calcium Level 8.9 mg/dl Magnesium Level 2.0 mg/dl Assessment and Plan C. Diff Diarrhea patient with multiple episodes of diarrhea at night on 12/07 c. diff was positive started on oral vanco, which we can continue for two weeks will add IVFs and replace K Peripheral Vascular Disease s/p Bypass 12/08 doing well, continue PT/OT plan for d/c to SNF 12/07 patient is doing well abx. completed s/p bypass on RLE appreciate vascular input plan to d/c to SNF when able, case management aware 12/06 S/P day #10 right superficial femoral endarterectomy with bovine patch graft, Right femoral to peroneal in situ bypass graft by dr. 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 Received Vit K INR 1.3--> PENDING Continue Coumadin, increased to 5mg daily Lovenox 40mg BID s/p mechanical fall CT head: no hemorrhage patient denies headache, neuro symptoms, hip or extremity pain monitor Fall Precautions OOB WITH ASSISTANCE CAD s/p CABG No anginal symptoms continue ASA, Statin HTN stable monitor COPD Respiratory status stable. Confusional State now back to baseline EtOH use No signs of alcohol withdrawal gabapentin for alcohol withdrawn protocol VTE PROPHYLAXIS Lovenox 40mg BID On Coumadin also; will stop Lovenox once INR 2-3 DISPOSITION Transition to Rehab/SNF when accepted PT/OT in progress- patient encouraged to participate
[2017-12-08] MEDS: NSS + 20MEQ KCL 1000ML 1,000 ML IV SCH (19:30)
[2017-12-08 19:37] VITALS: BP_SYST 112; BP_SYST 89; BP_DIAS 52; BP_DIAS 55; PULSE 76; PULSE 94
[2017-12-08 22:37] VITALS: BP 111/53; PULSE 79; TEMP 36.5; O2SAT 95
[2017-12-09] MEDS: ENOXAPARIN 40 MG/0.4 ML SYR SQ SCH ×2 (00:33→12:57)
[2017-12-09] MEDS: VANCOMYCIN HCL 125 MG/2.5ML SOLN PO SCH ×4 (00:33→16:51)
[2017-12-09] MEDS: RASPBERRY SYRUP 5 ML UDP PO SCH ×4 (00:33→16:51)
[2017-12-09 06:27] LABS: HEMATOCRIT 29.7 % (42-52); MEAN CELL VOLUME 89.7 fL (80-100); MEAN CORPUSCULAR HEMOGLOBIN 30.2 pg (25-34); MEAN CORPUSCULAR HGB CONC 33.7 g/dl (32-36); MEAN PLATELET VOLUME 9.6 fL (7.4-10.4); PLATELET COUNT 410 K/uL (130-400); RED CELL DISTRIBUTION WIDTH CV 15.3 % (11.5-14.5); RED CELL DISTRIBUTION WIDTH SD 50.3 fL (36.4-46.3); WHITE BLOOD COUNT 16.44 K/uL (4.8-10.8)
[2017-12-09 06:54] LABS: CALCIUM 8.9 mg/dl (8.5-10.1); POTASSIUM 3.5 mmol/L (3.5-5.1)
[2017-12-09 07:34] VITALS: BP 120/57; PULSE 86; TEMP 36.9; O2SAT 97
[2017-12-09] MEDS: NSS + 20MEQ KCL 1000ML 1,000 ML IV SCH (09:30)
[2017-12-09] MEDS: BOOST VANILLA PO SCH ×2 (09:30→12:30)
[2017-12-09] MEDS: BOOST VANILLA PUDDING CUP PO SCH ×2 (09:30→12:30)
[2017-12-09] MEDS: MAGNESIUM OXIDE 400 MG TAB PO SCH (09:31)
[2017-12-09] MEDS: ASPIRIN 81 MG ECTAB PO SCH (09:31)
[2017-12-09] MEDS: FERROUS SULFATE 325 MG TAB PO SCH (09:31)
[2017-12-09] MEDS: CALCIUM 600MG + VIT D 400 IU TAB PO SCH (09:31)
[2017-12-09] MEDS: CYANOCOBALAMIN 500 MCG TAB (VIT B-12) PO SCH (09:32)
[2017-12-09] MEDS: THIAMINE HCL 100 MG TAB PO SCH (09:32)
[2017-12-09] MEDS: SERTRALINE HCL 50 MG TAB PO SCH (09:32)
[2017-12-09] MEDS: RANITIDINE HCL 150 MG TAB PO SCH (09:32)
[2017-12-09 15:21] VITALS: BP 116/53; PULSE 89; TEMP 36.6; O2SAT 96
[2017-12-09] MEDS: WARFARIN SOD 5 MG TAB PO SCH (15:52)
--- NOTE | 2017-12-09 15:58 | Progress Note ---
Subjective Date of Service: Dec 09, 2017. Subjective Pt evaluation today including: conversation w/ patient, physical exam, lab review, review of studies, review of inpatient medication list Saw/examined the patient in room 385 He's doing well, no problems/issues to note today diarrhea improving Problem List Medical Problems: (1) Change in mental status Status: Acute (2) Closed fracture of neck of left humerus Status: Acute (3) Dehydration Status: Acute (4) Dehydration Status: Acute (5) Dementia Status: Acute (6) Gangrene of toe Status: Acute (7) History of alcohol abuse Status: Chronic (8) Leukocytosis Status: Acute (9) Multiple contusions Status: Acute (10) STEMI (ST elevation myocardial infarction) Status: Acute (11) STEMI (ST elevation myocardial infarction) Status: Acute (12) UTI (urinary tract infection) Status: Acute (13) Wound of abdomen Status: Acute Review of Systems Abdomen: + diarrhea, No pain, No nausea, No vomiting Musculoskeletal: No joint pain, No muscle pain, No swelling, No calf pain Medications Current Inpatient Medications Medications (Trade) Dose Ordered Sig/Nieves Route Start Time Stop Time Status Last Admin Dose Admin Acetaminophen (Tylenol Tab) 650 mg Q4H PRN PO 11/19/17 10:00 12/19/17 09:59 11/23/17 04:55 650 MG Polyethylene (Miralax Powder Packet) 17 gm DAILY PRN PO 11/19/17 10:00 12/19/17 09:59 Atorvastatin Calcium (Lipitor Tab) 80 mg QDD PO 11/19/17 17:45 12/19/17 17:59 12/08/17 17:52 80 MG Calcium/Vitamin D (Caltrate Plus Tab) 1 tab BID PO 11/19/17 21:00 12/19/17 20:59 12/09/17 09:31 1 TAB Cyanocobalamin (Vitamin B-12 Tab) 1,000 mcg QAM PO 11/20/17 09:00 12/20/17 08:59 12/09/17 09:32 1,000 MCG Folic Acid (Folvite Tab) 1 mg QAM PO 11/20/17 09:00 12/20/17 08:59 12/09/17 09:31 1 MG Gabapentin (Neurontin Cap) 100 mg TID PO 11/19/17 14:00 12/19/17 13:59 Future Hold 11/21/17 19:43 100 MG Magnesium Oxide (Mag-Ox Tab) 400 mg BID PO 11/19/17 21:00 12/19/17 20:59 12/09/17 09:31 400 MG Ranitidine HCl (zANTac TAB) 150 mg QAM PO 11/20/17 09:00 12/20/17 08:59 12/09/17 09:32 150 MG Sertraline HCl (Zoloft Tab) 50 mg QAM PO 11/20/17 09:00 12/20/17 08:59 12/09/17 09:32 50 MG Ferrous Sulfate (Feosol Tab) 325 mg DAILY PO 11/20/17 09:00 12/20/17 08:59 12/09/17 09:31 325 MG Miscellaneous (Iv Fluids Completed) 1 ea PRN PRN N/A 11/19/17 12:00 11/19/18 11:59 Lorazepam (Ativan Tab) 1 mg ONE PRN PO 11/19/17 13:00 Lorazepam (Ativan Tab) 1 mg ONE PRN PO 11/21/17 20:15 Ondansetron HCl (Zofran Inj) 4 mg Q6H PRN IV 11/24/17 18:30 12/24/17 18:29 Enoxaparin Sodium (Lovenox Inj) 40 mg Q12H SQ 11/30/17 13:00 12/30/17 12:59 12/09/17 12:57 40 MG Enteral Nutritional Formula (Boost Pudding) 1 cup TIDM PO 11/30/17 17:45 12/30/17 17:44 12/09/17 09:30 1 CUP Thiamine HCl (Vitamin B-1 Tab) 100 mg QAM PO 12/03/17 09:00 01/02/18 08:59 12/09/17 09:32 100 MG Enteral Nutritional Formula (Boost) 1 can TIDM PO 12/02/17 17:45 01/01/18 17:44 12/09/17 09:30 1 CAN Oxycodone/ Acetaminophen (Percocet 5-325mg Tab) 1 tab Q6H PRN PO 12/04/17 12:00 12/18/17 11:59 12/06/17 17:37 1 TAB Warfarin Sodium (Coumadin Tab) 5 mg DAILY@16 PO 12/05/17 16:00 01/01/18 15:59 12/09/17 15:52 5 MG Aspirin (Ecotrin Tab) 81 mg QAM PO 12/05/17 09:00 01/04/18 08:59 12/09/17 09:31 81 MG Vancomycin HCl (Vancomycin Oral Soln) 125 mg Q6H PO 12/08/17 01:00 12/22/17 00:59 12/09/17 12:56 125 MG Raspberry (Raspberry Syrup 5ml Cup) 5 ml Q6H PO 12/08/17 01:00 12/22/17 00:59 12/09/17 12:56 5 ML Potassium Chloride/Sodium Chloride 1,000 ml @ 75 mls/hr [id number] IV 12/08/17 19:30 01/07/18 19:29 Objective Vital Signs Date Time Temp Pulse Resp B/P (MAP) Pulse Ox O2 Delivery O2 Flow Rate FiO2 12/09/17 15:21 36.6 89 18 116/53 (74) 96 Room Air 12/09/17 07:48 Room Air 12/09/17 07:34 36.9 86 16 120/57 (78) 97 Room Air 12/08/17 23:50 Room Air 12/08/17 22:37 36.5 79 18 111/53 (72) 95 Room Air 12/08/17 19:37 76 112/52 (72) 94 89/55 (66) Physical Exam General Appearance: no apparent distress Respiratory/Chest: no respiratory distress, no accessory muscle use Cardiovascular: regular rate, rhythm Extremities: + pertinent finding (R calf ritesh) Laboratory Results Last 24 Hours Test 12/09/17 06:00 White Blood Count 16.44 K/uL Red Blood Count 3.31 M/uL Hemoglobin 10.0 g/dL Hematocrit 29.7 % Mean Corpuscular Volume 89.7 fL Mean Corpuscular Hemoglobin 30.2 pg Mean Corpuscular Hemoglobin Concent 33.7 g/dl RDW Standard Deviation 50.3 fL RDW Coefficient of Variation 15.3 % Platelet Count 410 K/uL Mean Platelet Volume 9.6 fL Sodium Level 132 mmol/L Potassium Level 3.5 mmol/L Chloride Level 99 mmol/L Carbon Dioxide Level 26 mmol/L Anion Gap 7.0 mmol/L Blood Urea Nitrogen 10 mg/dl Creatinine 1.00 mg/dl Est Creatinine Clear Calc Drug Dose 58.7 ml/min Estimated GFR () 87.4 Estimated GFR (Non- 75.4 BUN/Creatinine Ratio 9.6 Random Glucose 102 mg/dl Calcium Level 8.9 mg/dl Magnesium Level 1.9 mg/dl Assessment and Plan C. Diff Diarrhea 12/09 will continue Vancomycin on discharge for 2 weeks 12/08 patient with multiple episodes of diarrhea at night on 12/07 c. diff was positive started on oral vanco, which we can continue for two weeks will add IVFs and replace K Peripheral Vascular Disease s/p Bypass 12/08 doing well, continue PT/OT plan for d/c to SNF 12/07 patient is doing well abx. completed s/p bypass on RLE appreciate vascular input plan to d/c to SNF when able, case management aware 12/06 S/P day #10 right superficial femoral endarterectomy with bovine patch graft, Right femoral to peroneal in situ bypass graft by dr. 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 Received Vit K INR 1.3--> PENDING Continue Coumadin, increased to 5mg daily Lovenox 40mg BID s/p mechanical fall CT head: no hemorrhage patient denies headache, neuro symptoms, hip or extremity pain monitor Fall Precautions OOB WITH ASSISTANCE CAD s/p CABG No anginal symptoms continue ASA, Statin HTN stable monitor COPD Respiratory status stable. Confusional State now back to baseline EtOH use No signs of alcohol withdrawal gabapentin for alcohol withdrawn protocol VTE PROPHYLAXIS Lovenox 40mg BID On Coumadin also; will stop Lovenox once INR 2-3 DISPOSITION Transition to Rehab/SNF when accepted PT/OT in progress- patient encouraged to participate
[2017-12-09] MEDS ORDERED: ASPEC81 PO (16:03)
[2017-12-09] MEDS ORDERED: VANC1SUS PO (16:03)
--- NOTE | 2017-12-09 16:07 | Discharge Instructions ---
Discharge Instructions Date of Service Dec 09, 2017. Admission Reason for Admission: Peripheral Arterial Disease with Gangrene Discharge Discharge Diagnosis / Problem: Peripheral Artery Disease, Gangrene, C. diff diarrhea Discharge Goals Goal(s): Decrease discomfort, Improve function, Diagnostic testing, Therapeutic intervention Activity Recommendations Activity Level: Up Ad Felicia Therapies: Physical Therapy, Occupational Therapy Lifting Limitations: none Exercise/Sports Limitations: none . Additional Information Patient informed of condition: Yes Advance Directives: No DNR: No Level of Care: Acute Rehab Communicable Disease: Yes (C. Diff) Prognosis: Stable Instructions / Follow-Up Instructions / Follow-Up Please follow-up with your primary care physician after stay at [facility] Follow-up with vascular surgery next week for suture removal and further management You will be discharged on vancomycin (antibiotic) for C. Diff Diarrhea Current Hospital Diet Patient's current hospital diet: Low Lactose Diet Discharge Diet Recommended Diet: Low Lactose Diet Procedures Procedures Performed: Debridement of Right Foot Pending Studies Studies pending at discharge: no Medical Emergencies . Who to Call and When: Medical Emergencies: If at any time you feel your situation is an emergency, please call 911 immediately. . Non-Emergent Contact Non-Emergency issues call your: Primary Care Provider . . "Provider Documentation" section prepared by Chayito Small. . Core Measure Problem Core Measures: None
--- NOTE | 2017-12-09 16:09 | Discharge Summary ---
Discharge Summary Date of Service Dec 09, 2017. Discharge Summary Admission Date: Nov 19, 2017 at 14:16 Discharge Date: Dec 09, 2017 Discharge Disposition: Home Principal Diagnosis: Peripheral Artery Disease s/p bypass Gangrenous Toes C. diff diarrhea Consultations: vascular Medication Reconciliation New Medications: Aspirin (Aspirin EC Low Dose) 81 Mg Ectab 81 MG PO QAM for 30 Days, #30 TABS Vancomycin HCl (Vancomycin HCl + Syrspend) 50 Mg/Ml Shena 125 MG PO Q6H for 12 Days, #108 ML Continued Medications: Acetaminophen (Tylenol) 325 Mg Tab 650 MG PO Q6 PRN for Pain or Fever Atorvastatin (Lipitor) 80 Mg Tab 80 MG PO QDD Calcium/Vitamin D (Os-[place] 500 Plus D) Tab 1 TAB PO BID Cyanocobalamin (Vitamin B-12) 1,000 Mcg Tab 1000 MCG PO QAM Ferrous Sulfate (Kp Ferrous Sulfate) 325 Mg Tab 1 TAB PO DAILY for 30 Days, #30 TAB 3 Refills Folic Acid (Folvite) 1 Mg Tab 1 MG PO QAM Gabapentin (Neurontin) 100 Mg Cap 100 MG PO TID Magnesium Oxide (Mag-Ox) 400 Mg Tab 400 MG PO BID Nutritional Supplements (Boost) 1 Liq Liq 1 CAN PO BID Oxycodone/Acetaminophen 5MG/325MG (Percocet 5MG/325MG) Tab 1 TABLET PO Q6 PRN for Pain, TAB PAIN Ranitidine (Zantac) 150 Mg Tab 150 MG PO QAM Senna/Docusate Sod (Senokot S) 1 Tab Tab 1 TAB PO QDL, TAB Sertraline (Zoloft) 50 Mg Tab 50 MG PO QAM Thiamine Hcl (Vitamin B-1) 50 Mg Tab 50 MG PO QAM Warfarin Sod (Jantoven) Unknown Strength Tab Unknown Dose PO UD DOSE VARIES THROUGHOUT THE WEEK - INSTRUCTIONS RECEIVED FROM DR SWANN'S OFFICE FOR THIS MED Discontinued Medications: Amoxicillin & Pot Clavulanate (Amoxicillin/Clavulanate P) Unknown Strength Tab 875 PO BID for 10 Days, TAB Admission Information HPI (per Admitting provider): Pt is 72 y/o M with PMH HTN, hyperlipidemia, CAD s/p CABG, COPD, hx ETOH abuse, dementia, tobacco abuse, chronic malnutrition, hx DVT/PE on Coumadin, PAD, presented today for vascular surgery for limb salvage RLE by Dr Swann. 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 Pt has been having pain to R foot. His INR is 4.9 this morning and his surgery was cancelled. Pt states that his daughter does his medications for him. He is unsure if he has been taking Coumadin. Spoke to Sara Cuevas PA-C and she reports daughter reported that she did not restart the Coumadin since his last procedure 2 weeks ago? I have tried to reach daughter by phone and have been unable. Pt thought he used [facility] or [facility] in [place]. I have contacted those pharmacies and neither have warfarin being filled there. Pt denies fever/chills, diaphoresis, N/V/D/C, BELL, dizziness, syncope, vision changes, neck pain, CP, SOB, orthopnea, palpitations, cough, sore throat, choking, otalgia, rhinorrhea, abdominal pain, urinary symptoms. denies melena, hematochezia, hematuria, epistaxis Physical Exam (per Admitting): General Appearance: no apparent distress, + thin Head: normocephalic, atraumatic Eyes: normal inspection, PERRL, EOMI, sclerae normal ENT: hearing grossly normal, pharynx normal, + pertinent finding (mucous membranes moist) Neck: supple, no JVD, trachea midline Respiratory/Chest: no respiratory distress, no accessory muscle use, + wheezing (faint scattered) Cardiovascular: regular rate, rhythm, no murmur Abdomen/GI: normal bowel sounds, non tender, soft Extremities/Musculoskelatal: + pertinent finding (Left great toe and 2nd toe amputated, R great toe amputated with gangrene at site. non-palpable dorsalis pedis pulses non-palpable bilaterally) Neurologic/Psych: alert, + pertinent finding (pt poor historian, alert to person and place, confused to time) Skin: warm/dry, + pertinent finding (see extremities) Hospital Course C. Diff Diarrhea 12/09 will continue Vancomycin on discharge for 2 weeks 12/08 patient with multiple episodes of diarrhea at night on 12/07 c. diff was positive started on oral vanco, which we can continue for two weeks will add IVFs and replace K Peripheral Vascular Disease s/p Bypass 12/08 doing well, continue PT/OT plan for d/c to SNF 12/07 patient is doing well abx. completed s/p bypass on RLE appreciate vascular input plan to d/c to SNF when able, case management aware 12/06 S/P day #10 right superficial femoral endarterectomy with bovine patch graft, Right femoral to peroneal in situ bypass graft by dr. 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 Received Vit K INR 1.3--> PENDING Continue Coumadin, increased to 5mg daily Lovenox 40mg BID s/p mechanical fall CT head: no hemorrhage patient denies headache, neuro symptoms, hip or extremity pain monitor Fall Precautions OOB WITH ASSISTANCE CAD s/p CABG No anginal symptoms continue ASA, Statin HTN stable monitor COPD Respiratory status stable. Confusional State now back to baseline EtOH use No signs of alcohol withdrawal gabapentin for alcohol withdrawn protocol VTE PROPHYLAXIS Lovenox 40mg BID On Coumadin also; will stop Lovenox once INR 2-3 DISPOSITION Transition to Rehab/SNF when accepted PT/OT in progress- patient encouraged to participate Total time spent on discharge = 40 minutes This includes examination of the patient, discharge planning, medication reconciliation, and communication with other providers. Discharge Instructions Please follow-up with your primary care physician after stay at [facility] Follow-up with vascular surgery next week for suture removal and further management You will be discharged on vancomycin (antibiotic) for C. Diff Diarrhea
[2017-12-09 16:35] VITALS: BP 116/53; PULSE 89; TEMP 36.6; O2SAT 96
--- NOTE | 2017-12-14 09:01 | EDITING REQUIRED CODING QUERY ---
BMI To promote full compliance with coding requirements relating to patient care, physician participation is requested in all cases of receptionist telephone operator uncertainty. Please assist us with the question(s) below: Please place an X within the parenthesis (x). If other, please document: BMI 17.8 was documented in this record for this patient. If the BMI is significant, please check the box that provides a more specific associated diagnosis: ( ) Overweight/Obese ( ) Obesity ( ) Morbid obesity ( ) Obesity Hypoventilation Syndrome (OHS) ( ) Heathy weight, not significant ( x ) Underweight/Thin ( ) Other, please specify Thank you Rere Ortiz
--- NOTE | 2017-12-14 09:02 | EDITING REQUIRED CODING QUERY ---
MALNUTRITION To promote full compliance with coding requirements relating to patient care, physician participation is requested in all cases of design center consultant uncertainty. Please assist us with the question(s) below: Please place an X within the parenthesis (x). If other, please document: "Malnutrition" is documented in this record. If possible, please check the box that provides a more specific diagnosis: ( ) Mild malnutrition ( ) Moderate malnutrition ( ) Severe malnutrition ( ) Protein malnutrition (kwashiorkor) ( ) Severe protein calorie malnutrition ( ) Protein calorie malnutrition, unspecified ( ) Other (please specify): Was this diagnosis present on admission? Please place an X within the parenthesis (x). ( x ) Present on admission ( ) Not present on admission ( ) Unable to be clinically determined Thank you Rere Ortiz
== END 2017-12-09 17:10 | DRG 271 ==
LOC: C.ACU 06:05 → C.MSN 09:58 → EDBEDREQ 10:08 → ENRESERV 10:18 → OBSVTOIN 14:16 → ENRESERV 11-24 19:42 → C.MSICU 11-24 19:59 → ENRESERV 11-25 13:41 → C.MSN 11-25 14:33
PROVIDERS: ADMIT Internal Medicine; ATTEND Family Medicine
PROC: 04CK0ZZ Extirpation of Matter from Right Femoral Artery, Open Approach (ICD-10-PCS; principal; 2017-11-24 13:00)
PROC: 04CJ0ZZ Extirpation of Matter from Left External Iliac Artery, Open Approach (ICD-10-PCS; principal; 2017-11-24 13:00)
PROC: 041K09N Bypass Right Femoral Artery to Posterior Tibial Artery with Autologous Venous Tissue, Open Approach (ICD-10-PCS; 2017-11-30)
PROC: 0QBQ0ZZ Excision of Right Toe Phalanx, Open Approach (ICD-10-PCS; 2017-11-30)
PROC: 0Y6M0Z4 Detachment at Right Foot, Complete 1st Ray, Open Approach (ICD-10-PCS; 2017-11-30)
DX: I77.9 Disorder of arteries and arterioles, unspecified (principal); E46 Unspecified protein-calorie malnutrition; I96 Gangrene, not elsewhere classified; Z68.1 Body mass index [BMI] 19.9 or less, adult; I10 Essential (primary) hypertension; R63.6 Underweight; E78.00 Pure hypercholesterolemia, unspecified; I25.10 Atherosclerotic heart disease of native coronary artery without angina pectoris; J44.9 Chronic obstructive pulmonary disease, unspecified; F10.10 Alcohol abuse, uncomplicated; F32.9 Major depressive disorder, single episode, unspecified; E78.5 Hyperlipidemia, unspecified; F17.200 Nicotine dependence, unspecified, uncomplicated; G62.9 Polyneuropathy, unspecified; R79.1 Abnormal coagulation profile; B96.89 Other specified bacterial agents as the cause of diseases classified elsewhere; I25.2 Old myocardial infarction; Z86.718 Personal history of other venous thrombosis and embolism; Z86.711 Personal history of pulmonary embolism; Z95.1 Presence of aortocoronary bypass graft; Z79.82 Long term (current) use of aspirin; Z79.01 Long term (current) use of anticoagulants; Z83.3 Family history of diabetes mellitus

== ENCOUNTER → 2018-01-07 | Outpatient (CLI) | payer OTHER ==
[~2018-01-07] MED LIST changes: -AMOX1TAB43 PO; +ASPEC81 PO; -CEFAZOLIN 1000MG IV PUSH 7.5 ML IV SCH; +FERR1TAB13 PO; -LACTATED RINGER'S 1000ML 500 ML IV SCH; -PATIENT'S HEIGHT AND/OR WEIGHT NEEDED SCH; -SODIUM CHLORIDE 0.9% 1000ML 1,000 ML IV SCH; +VANC1SUS PO
[2018-01-07 12:38] LABS: INR 3.5 (0.9-1.1)
== END ==
LOC: C.LABCC 12:14
PROVIDERS: ATTEND Internal Medicine
DX: Z86.711 Personal history of pulmonary embolism (principal)

== ENCOUNTER 2018-09-28 17:08 | Inpatient (IN) ==
[2018-09-28] MEDS ORDERED: VANCOMYCIN HCL 1,700 MG in SODIUM CHLORIDE 0.9% 500 ML IV ONE (17:28)
[2018-09-28] MEDS ORDERED: SODIUM CHLORIDE 0.9% 1000ML 1,000 ML IV SCH (17:30)
[2018-09-28 18:02] LABS: Basophils # (auto) 0.03 K/uL (0-0.2); Basophils % (auto) 0.4 %; Eosinophils # (auto) 0.14 K/uL (0-0.5); Eosinophils % (auto) 1.6 %; Hematocrit (blood only) 38.7 % (42-52); Immature Granulocytes # (auto) 0.02 K/uL (0.00-0.02); Immature Granulocytes % (auto) 0.2 %; Lymphocytes # (auto) 1.41 K/uL (1.2-3.4); Lymphocytes % (auto) 16.5 %; Mean Corpuscular Hgb Conc 33.6 g/dL (32-36); Mean Corpuscular Volume 92.1 fL (80-100); Monocytes # (auto) 0.57 K/uL (0.11-0.59); Monocytes % (auto) 6.7 %; Neutrophils % (auto) 74.6 %; Platelet Count 265 K/uL (130-400); RDW Coefficient of Variation 17.9 % (11.5-14.5); RDW Standard Deviation 60.7 fL (36.4-46.3); White Blood Count 8.57 K/uL (4.8-10.8)
[2018-09-28 18:18] LABS: Alanine Aminotransferase 10 U/L (12-78); Albumin Level 3.2 gm/dl (3.4-5.0); Aspartate Aminotransferase 18 U/L (15-37); BUN Creatinine Ratio 7.5 (10-20); Blood Urea Nitrogen 9 mg/dl (7-18); Calcium 8.8 mg/dl (8.5-10.1); Carbon Dioxide 27 mmol/L (21-32); Chloride 101 mmol/L (98-107); Est GFR (African American) 74.1; Est GFR (Non-African American) 63.9; Glucose 62 mg/dl (70-99); Potassium 3.4 mmol/L (3.5-5.1); Sodium 136 mmol/L (136-145)
[2018-09-28 18:21] LABS: Albumin Globulin Ratio 0.7 (0.9-2); Alkaline Phosphatase 112 U/L (45-117); Bilirubin,Total 0.3 mg/dl (0.1-1); Globulin 4.5 gm/dl (2.5-4.0); Total Protein 7.7 gm/dl (6.4-8.2)
[2018-09-28] MEDS ORDERED: MoRPHine SULFATE 4 MG/ML 1 ML CARP\\VIAL IV STA (18:35)
--- NOTE | 2018-09-28 19:02 | Emergency Department Note ---
Entered by Pj Ortiz acting as a scribe for Celso Bell DO History of Present Illness General Chief complaint: Infection, Wound Stated complaint: LEFT FOOT/TOE BONE INFECTION Source: patient and family History of Present Illness Provider complaint: Infection Onset (ago): week(s) (1.5) Location: foot (Left) Severity: similar to prior episodes Pain Consistency: + other (Worsening) Maximum Pain Intensity: 6 Associated symptoms: + other (Drainage, erythema ) The patient is a 73 year old male who presents to the Emergency Room with complaints of a worsening infection of his foot over the past 1.5 weeks. Since this time there has been more drainage and pain, however the swelling and erythema has been worsening for the past 3 months. He saw his PCP and had an MRI done that showed a potential bone infection and he is on an antibiotic that he started 4 days ago. The patient has an extensive cardiac history having had mulitple stents and bypasses placed. The most recent of these were two bypasses he had done on both of his legs about 3 months ago. Home Medications Home Medications Medication Instructions Recorded Confirmed Type atorvastatin 80 mg PO DAILY 07/31/18 09/28/18 History calcium carbonate-vitamin D3 1 tab PO DAILY 07/31/18 09/28/18 History [Os-Lowell 500 + D3] cyanocobalamin (vitamin B-12) 1,000 mcg PO DAILY 07/31/18 09/28/18 History [Vitamin B-12] ferrous sulfate 325 mg PO DAILY 07/31/18 09/28/18 History folic acid 1 mg PO DAILY 07/31/18 09/28/18 History gabapentin 100 mg PO TID PRN 07/31/18 09/28/18 History magnesium oxide 400 mg PO DAILY 07/31/18 09/28/18 History ranitidine HCl 150 mg PO DAILY 07/31/18 09/28/18 History thiamine HCl (vitamin B1) 50 mg PO DAILY 07/31/18 09/28/18 History warfarin 5 mg PO Q OTHER DAY 07/31/18 09/28/18 History multivitamin [Multiple Vitamins] 1 tab PO DAILY 08/07/18 09/28/18 History clopidogrel 75 mg PO QAM 30 Days #30 tab 08/15/18 09/28/18 Rx clindamycin HCl [Cleocin HCl] 300 mg PO Q6 09/28/18 09/28/18 History warfarin [Coumadin] 7.5 mg PO Q OTHER DAY 09/28/18 09/28/18 History Allergies Allergy/AdvReac Type Severity Reaction Status Date / Time No Known Allergies Allergy Verified 08/07/18 00:25 Past Med/Surg History Medical History Alcohol abuse Arterial graft thrombosis (Acute) Encounter for pre-operative examination Occlusion of left femoropopliteal bypass graft (Acute) Status post amputation of toe of left foot Personal history of DVT (deep vein thrombosis) (Resolved) Peripheral arterial disease (Chronic) Hypertension (Chronic) Tobacco use disorder (Chronic) History of alcohol dependence (Chronic) Peripheral artery disease (Chronic) s/p femoropopliteal bypass bilaterally DC (myocardial infarction) (Resolved) Warfarin anticoagulation (Chronic) COPD (chronic obstructive pulmonary disease) (Chronic) Malnutrition (Chronic) Peripheral neuropathy (Chronic) Hyperlipidemia (Chronic) CAD (coronary artery disease) (Chronic) Depression (Chronic) Dementia (Chronic) Surgical History Status post femoropopliteal bypass surgery Status post amputation of left great toe Status post amputation of right great toe Status post amputation of toe of right foot History of femoropopliteal bypass (Resolved) Hx of CABG (Chronic) S/P coronary artery stent placement (Chronic) History of carpal tunnel surgery (Chronic) Family History Other Diabetes Heart disease Social History marital status: Current Living Situation: Alone current occupational status: retired Feels Safe at Home: Yes Smoking Status: Current every day smoker Tobacco Type: cigarettes Second Hand Exposure: No Hx Alcohol Use: No Hx Substance Use: No Beliefs That Will Affect Care: None Preferred Language: Honduran Review of Systems See HPI for pertinent positives & negatives. and A total of 10 systems reviewed and were otherwise negative Physical Exam Vital Signs Vital Signs - 24 hr 09/28/18 17:11 09/28/18 17:53 Temperature 36.5 C Temperature Source Oral Sepsis Recent Fever Within 48 Hours No Sepsis Action Taken by Nursing No Action Required Pulse Rate 73 Pulse Rate [Apical] 64 Respiratory Rate 18 14 Respiratory Effort / Characteristics Non-Labored Spontaneous Respiratory Depth Normal Respiratory Pattern Regular Blood Pressure 148/66 H Blood Pressure [Right Arm] 155/77 H Blood Pressure Mean 93 Blood Pressure Mean [Right Arm] 103 Blood Pressure Position Sitting Pulse Oximetry 99 98 Oxygen Delivery Method Room Air Room Air GENERAL: Sitting up in bed, alert, cachetic appearing, well nourished, no distress, non-toxic EYE EXAM: normal conjunctiva. OROPHARYNX: no exudate, no erythema, lips, buccal mucosa, and tongue normal and mucous membranes are moist NECK: supple, no nuchal rigidity, no adenopathy, non-tender LUNGS: Clear to auscultation. Normal chest wall mechanics HEART: no murmurs, S1 normal and S2 normal ABDOMEN: abdomen soft, non-tender, normo-active bowel, sounds, no masses, no rebound or guarding. BACK: Back is symmetrical on inspection and there is no deformity, no midline tenderness, no CVA tenderness. SKIN: no rashes and no bruising UPPER EXTREMITIES: upper extremities are grossly normal. LOWER EXTREMITIES: Amputation of the right 1st toe and left 1st and 2nd toe. 2x2cm area of green purulent material with palpable bone at the base of the 2nd metatarsal. 1x1cm area of green purulent material with palpable bone at the base of the 1st metatarsal. Erythema tracking back on the dorsal aspect of the left foot. 1.5x2.5cm area of necrotic tissue on 1st toe. Left calf with old medial incision and mild erythema. NEURO EXAM: Normal sensorium, cranial nerves II-XII grossly intact, normal speech, no gross weakness of arms, no gross weakness of legs. Course ED COURSE: Vital signs were reviewed and showed situational hypertension The patients medical record was reviewed The above diagnostic studies were performed and reviewed. ED treatments and interventions as stated above. 1717: The patient was evaluated in room A09. A complete history and physical examination was performed. 1818: [facility]'s [facility] and he is going to accept him for further evaluation. 1835: Upon reevaluation, the patient is resting in bed. I discussed my findings with the patient and he understands and agrees with the treatment plan. Based on the patients age, coexisting illnesses, exam and lab findings the decision to treat as an inpatient was made. The patient remained stable while under my care. The patient will be evaluated for further management. Consultations Consultation #1: [facility]'s [facility] and he is going to accept him for further evaluation. Time: 18:18 Administered Medications Vancomycin HCl 1,700 mg/ (Sodium Chloride) 534 mls @ 200 mls/hr IV NOW ONE Stop: 09/28/18 20:08 Last Admin: 09/28/18 17:48 Dose: 200 mls/hr Discontinued Medications Sodium Chloride (Nss 1000ml) 1,000 mls @ 999 mls/hr IV .Q1H1M SABINO Stop: 09/28/18 18:30 Last Infusion: 09/28/18 18:55 Dose: 0 mls/hr Admin: 09/28/18 17:48 Dose: 999 mls/hr Morphine Sulfate (Morphine Sulfate) 4 mg IV NOW STA Stop: 09/28/18 18:36 Last Admin: 09/28/18 18:40 Dose: 4 mg Medical Decision Making Differential Diagnosis Differential diagnosis: Etiologies such as fracture, dislocation, neurovascular compromise, compartment syndrome, soft tissue injury, as well as others were entertained. Medical Records Attestation: I reviewed the patient's medical records. Home Medications Current Medication List: was personally reviewed by me Laboratory Data Attestation: I reviewed the patient's lab results. Result diagrams: 09/28/18 17:46 09/28/18 17:46 Lab Results 09/28/18 09/28/18 Range/Units 17:46 17:46 WBC 8.57 (4.8-10.8) K/uL RBC 4.20 L (4.7-6.1) M/uL Hgb 13.0 L (14.0-18.0) g/dL Hct 38.7 L (42-52) % MCV 92.1 (80-100) fL MCH 31.0 (25-34) pg MCHC 33.6 (32-36) g/dL RDW Std Deviation 60.7 H (36.4-46.3) fL RDW Coeff of Xiao 17.9 H (11.5-14.5) % Plt Count 265 (130-400) K/uL MPV 10.0 (7.4-10.4) fL Immature Gran % (Auto) 0.2 % Neut % (Auto) 74.6 % Lymph % (Auto) 16.5 % [place] % (Auto) 6.7 % Eos % (Auto) 1.6 % Baso % (Auto) 0.4 % Immature Gran # (Auto) 0.02 (0.00-0.02) K/uL Neut # (Auto) 6.40 (1.4-6.5) K/uL Lymph # (Auto) 1.41 (1.2-3.4) K/uL [place] # (Auto) 0.57 (0.11-0.59) K/uL Eos # (Auto) 0.14 (0-0.5) K/uL Baso # (Auto) 0.03 (0-0.2) K/uL Sodium 136 (136-145) mmol/L Potassium 3.4 L (3.5-5.1) mmol/L Chloride 101 (98-107) mmol/L Carbon Dioxide 27 (21-32) mmol/L Anion Gap 8.0 (3-11) BUN 9 (7-18) mg/dl Creatinine 1.14 (0.6-1.4) mg/dl Est Cr Clr Drug Dosing Not Reportable Est GFR ( Amer) 74.1 Est GFR (Non-Af Amer) 63.9 BUN/Creatinine Ratio 7.5 L (10-20) Glucose 62 L (70-99) mg/dl Calcium 8.8 (8.5-10.1) mg/dl Total Bilirubin 0.3 (0.1-1) mg/dl AST 18 (15-37) U/L ALT 10 L (12-78) U/L Alkaline Phosphatase 112 (45-117) U/L Total Protein 7.7 (6.4-8.2) gm/dl Albumin 3.2 L (3.4-5.0) gm/dl Globulin 4.5 H (2.5-4.0) gm/dl Albumin/Globulin Ratio 0.7 L (0.9-2) Blood Pressure Blood Pressure Findings: Elevated blood pressure Blood Pressure Disposition: elevated BP felt to be situational MDM Narrative Patient is a 73-year-old male who was referred in for osteo of his left foot. Patient had an MRI which confirmed this 2 days ago. Wound has been worsening over the past 2 weeks. Patient is afebrile. Has had several arterial grafts in bilateral lower extremities. Vitals are unremarkable. Patient was given IV morphine vancomycin and fluids. Labs show no significant leukocytosis or anemia. BMP along with LFTs and bilirubin was unremarkable. Patient family were updated at bedside. Discussed with the hospitalist for further evaluation and treatment of the osteomyelitis as the patient was sent in by PCP. Impression & Plan Osteomyelitis Discharge Plan Visit Data Chief Complaint: Infection, Wound Stated Complaint: LEFT FOOT/TOE BONE INFECTION ED Provider: Celso Bell Discharge Problem: Osteomyelitis Patient Disposition: Being Evaluated by Hospitalist Forms Stand Alone Forms: My [facility] Prescriptions Prescriptions: No Action atorvastatin 80 mg tablet 80 mg PO DAILY RF: 0 cyanocobalamin (vitamin B-12) [Vitamin B-12] 1,000 mcg Tablet 1,000 mcg PO DAILY RF: 0 ferrous sulfate 325 mg (65 mg iron) Tablet 325 mg PO DAILY RF: 0 ranitidine HCl 150 mg tablet 150 mg PO DAILY RF: 0 warfarin 5 mg tablet 5 mg PO Q OTHER DAY RF: 0 folic acid 1 mg Tablet 1 mg PO DAILY RF: 0 gabapentin 100 mg capsule 100 mg PO TID PRN (Reason: Pain) RF: 0 thiamine HCl (vitamin B1) 50 mg Tablet 50 mg PO DAILY RF: 0 calcium carbonate-vitamin D3 [Os-Lowell 500 + D3] 500 mg(1,250mg) -200 unit Tablet 1 tab PO DAILY RF: 0 magnesium oxide 400 mg magnesium Tablet 400 mg PO DAILY RF: 0 multivitamin [Multiple Vitamins] Tablet 1 tab PO DAILY RF: 0 clopidogrel 75 mg Tablet 75 mg PO QAM 30 Days Qty: 30 RF: 1 clindamycin HCl [Cleocin HCl] 300 mg capsule 300 mg PO Q6 RF: 0 warfarin [Coumadin] 5 mg tablet 7.5 mg PO Q OTHER DAY RF: 0 Referrals Referrals: Prem Stuart [Primary Care Provider] - The scribe's documentation has been prepared under my direction and personally reviewed by me in its entirety. I confirm that the note above accurately reflects all work, treatment, procedures, and medical decision making performed by me.
[2018-09-28 19:23] LABS: INR 2.1 (0.9-1.1); Partial Thromboplastin Ratio 1.4; Partial Thromboplastin Time 35.4 Seconds (21.0-31.0)
[2018-09-28] MEDS ORDERED: POTASSIUM CHLORIDE 10 MEQ TABCR PO STA (19:31)
--- NOTE | 2018-09-28 20:02 | History & Physical Report ---
Date of Service September 28, 2018 Assessment & Plan (1) Osteomyelitis: This is a 73-year-old male with a PMH of PAD (s/p bilateral femoropopliteal bypass with LLE thrombectomy and revision of bypass in Jul 2018) , h/o DVT/PE, dementia, CAD (s/p CABG and recent STEMI s/p stent), systolic CHF , HTN, COPD, tobacco use disorder, etoh dependence and other medical problems listed below who presents with osteomyelitis of left foot. -Had MRI performed at [facility] last week ( requesting record) -Was started on PO clindamycin but pain has worsened and there is more wound drainage -Hemodynamically stable, no leukocytosis or evidence of sepsis -Vanco and cefepime started empirically -Per attending addendum for further information regarding plan (2) PAD (peripheral artery disease): (3) History of femoropopliteal bypass: Was admitted for occluded femoropopliteal bypass of left lower extremity in July and is s/p bypass revision -Has been taking Coumadin daily and INR is therapeutic at 2.1 -Follows with Dr. Hussein in clinic (4) CAD (coronary artery disease): History of recent inferior wall STEMI s/p stent to RCA -No chest pain currently -Continue Plavix and statin (5) Systolic HF (heart failure): Recent echo performed on August 07 in setting of acute inferior wall STEMI -EF of 40-45% with mildly reduced LV systolic function and akinesis of the proximal and mid inferioposterior [place]illo -Monitor volume status (6) Alcohol abuse: Reportedly drinking 1 bottle of bourbon every 2 days at home, per daughter -We will need alcohol withdrawal protocol while inpatient -Continue home dose thiamine, folic acid and multivitamin (7) Hypertension: Mildly elevated BP in setting of pain -Not taking any blood pressure meds at home -Optimize pain control. Add antihypertensive agent if indicated (8) Tobacco use disorder: Continues to smoke 10-20 cigarettes despite multiple conversations about the importance of cessation (9) Hyperlipidemia: Continue statin (10) Peripheral neuropathy: Continue gabapentin Code status: FULL per discussion with patient PCP: Dr. Castro of ([facility]) Dispo: Admitted to med/surg. Discharge planning ordered. Patient seen in collaboration with Dr. Ramsay. Please see addendum. History of Present Illness Chief Complaint: left foot pain Primary Care Provider: Prem Stuart This is a 73-year-old male with a PMH of PAD (s/p bilateral femoropopliteal bypass with LLE thrombectomy and revision of bypass in Jul 2018), h/o DVT/PE, dementia, CAD (s/p CABG and recent STEMI s/p stent), systolic CHF, HTN, COPD, tobacco use disorder, etoh dependence and other medical problems listed below who presents with worsening left lower extremity pain x 2 weeks. Denies any associated weakness or paresthesias. Per daughter, home health nurse notified her of left toe infection [address] Castro (new PCP) at [facility] has been monitoring infection. Ordered MRI of left foot last week, which reportedly showed osyeomyelitis. Patient was started on PO Clindamycin QID. Pain has worsened over the past few days and wound has opened up, so daughter Rosio brought patient to ED for further evaluation. Patient has been admitted twice in the past few months. During July 31- admission, patient was found to have an occluded left femoropopliteal bypass graft and Dr. Hussein performed left lower extremity thrombectomy and revision of bypass. Patient returned to the ED on August 07 with chest pain and was found to have an acute STEMI in inferior leads and is s/p RCA stent placement. Was initially on Plavix and aspirin, along with Coumadin for chronic PAD, but aspirin has since been discontinued per cardiology. Daughter has been coming to the house every day to ensure that patient is taking medication correctly, in setting of worsening dementia. Denies any fever, chills, lightheadedness, visual changes, chest pain, shortness of breath, abdominal pain, nausea, vomiting, dysuria, diarrhea or constipation. Continues to smoke 10-20 cigarettes daily. Drinks a bottle of bourbon every 2 days, per daughter. Allergies Allergy/AdvReac Type Severity Reaction Status Date / Time No Known Allergies Allergy Verified 08/07/18 00:25 Home Medications Home Medications Medication Instructions Recorded Confirmed Type atorvastatin 80 mg PO DAILY 07/31/18 09/28/18 History calcium carbonate-vitamin D3 1 tab PO DAILY 07/31/18 09/28/18 History [Os-Lowell 500 + D3] cyanocobalamin (vitamin B-12) 1,000 mcg PO DAILY 07/31/18 09/28/18 History [Vitamin B-12] ferrous sulfate 325 mg PO DAILY 07/31/18 09/28/18 History folic acid 1 mg PO DAILY 07/31/18 09/28/18 History gabapentin 100 mg PO TID PRN 07/31/18 09/28/18 History magnesium oxide 400 mg PO DAILY 07/31/18 09/28/18 History ranitidine HCl 150 mg PO DAILY 07/31/18 09/28/18 History thiamine HCl (vitamin B1) 50 mg PO DAILY 07/31/18 09/28/18 History warfarin 5 mg PO Q OTHER DAY 07/31/18 09/28/18 History multivitamin [Multiple Vitamins] 1 tab PO DAILY 08/07/18 09/28/18 History clopidogrel 75 mg PO QAM 30 Days #30 tab 08/15/18 09/28/18 Rx clindamycin HCl [Cleocin HCl] 300 mg PO Q6 09/28/18 09/28/18 History warfarin [Coumadin] 7.5 mg PO Q OTHER DAY 09/28/18 09/28/18 History Past Med/Surg History Medical History Systolic HF (heart failure) (Chronic) Alcohol abuse (Chronic) 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) Personal history of DVT (deep vein thrombosis) (Resolved) Hypertension (Chronic) Tobacco use disorder (Chronic) Warfarin anticoagulation (Chronic) COPD (chronic obstructive pulmonary disease) (Chronic) Malnutrition (Chronic) Peripheral neuropathy (Chronic) Hyperlipidemia (Chronic) CAD (coronary artery disease) (Chronic) Depression (Chronic) Dementia (Chronic) Surgical History Status post amputation of left great toe (Chronic) Status post amputation of right great toe (Chronic) History of femoropopliteal bypass (Resolved) LLE thrombectomy and bypass revision performed in Jul 2018 Hx of CABG (Chronic) S/P coronary artery stent placement (Chronic) RCA stent placed on 08/07/18 History of carpal tunnel surgery (Chronic) Family History Other Diabetes Heart disease Social History marital status: Current Living Situation: Alone current occupational status: retired Other Information That Helps Us Care for You: No Feels Safe at Home: Yes Safety Concerns: Feels Safe At This Time Smoking Status: Current every day smoker Tobacco Type: cigarettes Cigarettes per Day: 1 pack per day Do You Dip or Chew Tobacco: No Second Hand Exposure: No Tobacco Cessation Education Requested by Patient: No Hx Alcohol Use: Yes Alcohol type: hard liquor Alcohol Intake Frequency: 3 or more drinks per day Alcohol Intake Frequency Comment: occasional Hx Substance Use: No Beliefs That Will Affect Care: None Preferred Language: Thai Food Service Required: No Review of Systems All systems reviewed & are unremarkable except as noted in HPI & below Physical Exam 2 Vital Signs (Past 24 Hours): Last Vital Signs Temp 36.5 C 09/28/18 17:11 Pulse 80 09/28/18 19:30 Resp 20 09/28/18 19:30 BP 152/89 H 09/28/18 19:30 Pulse Ox 94 09/28/18 19:30 Physical Exam: General Appearance: WD/WN, no apparent distress, chronically ill appearing Head: normocephalic, atraumatic Eyes: normal inspection, PERRL, EOMI ENT: hearing grossly normal, pharynx normal (moist mucous membranes) Neck: supple, no JVD, no adenopathy Respiratory/Chest: lungs clear to auscultation. No wheezes, rales or rhonci. No respiratory distress or accessory muscle use Cardiovascular: regular rate, rhythm, no murmur, normal peripheral pulses Abdomen/GI: normal bowel sounds, soft, non-tender to palpation Extremities/Musculoskelatal: no calf tenderness, normal capillary refill, s/p R great toe amputation. S/p Left great and 2nd toe amputations. Distal aspect of 3rd toe with necrosis and scant purulent drainage. 1-2+ pedal edema of BLE. Neurologic/Psych: alert, normal mood/affect, oriented x 3 Skin: normal color, warm/dry. BLE erythema to mid-[place]. Results & Data Laboratory Results Short CBC 09/28/18 Range/Units 17:46 WBC 8.57 (4.8-10.8) K/uL Hgb 13.0 L (14.0-18.0) g/dL Hct 38.7 L (42-52) % Plt Count 265 (130-400) K/uL BMP 09/28/18 17:46 Sodium 136 Potassium 3.4 L Chloride 101 Carbon Dioxide 27 BUN 9 Creatinine 1.14 Glucose 62 L Calcium 8.8 Liver Function 09/28/18 Range/Units 17:46 Total Bilirubin 0.3 (0.1-1) mg/dl AST 18 (15-37) U/L ALT 10 L (12-78) U/L Alkaline Phosphatase 112 (45-117) U/L Albumin 3.2 L (3.4-5.0) gm/dl Code Status & VTE Plan Code Status FULL code per discussion with patient, daughter at bedside (was a DNR last admission but wants to be a full code now) VTE Prophylaxis Plan VTE Prophylaxis will be ordered: Yes Supervising Physician Co-Signing Physician Notes IM ATTENDING : Patient seen and examined. History obtained from patient, daughter, and records. Preceding documentation by Miss Daja Brown PA-C reviewed. FINAL ASSESSMENT AND PLAN as follows : Osteomyelitis, wound drainage, L foot hx L toe amputation 10/2017 hx PVD sp surgery Failed outpatient treatment with Clindamycin. Patient not septic. hx CAD status post CABG, status post recent stent 07/2018 Chronic systolic heart failure secondary to ischemic cardiomyopathy (WF 40-45% TTE 2017) Patient euvolemic to dry. 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 Hussein.) ID consult RE L foot osteomyelitis, postop wound drainage DT precautions PT OT eval Replace potassium Hold Coumadin for now until surgical plan ascertained for left foot. Recommend obtaining cardiology preop eval if surgery recommended given recent [place]. DVT prophylaxis. IV heparin while Coumadin on hold if INR less than 2 (re possible surgery) Full code Patient's daughter requesting for updates from providers. Ms. Conchita Mckenna thru [phone]. _ (1) Osteomyelitis Laterality: left Osteomyelitis location: foot Osteomyelitis type: unspecified type Qualified Code(s): M86.9 - Osteomyelitis, unspecified
[2018-09-28] MEDS ORDERED: THIAMINE HCL 100 MG in SYRINGE 9 ML IV ONE (20:15)
[2018-09-28] MEDS ORDERED: POTASSIUM CHLORIDE / WTR 10 MEQ/100 ML PLCT IV SCH (21:00)
[2018-09-28] MEDS ORDERED: POTASSIUM CHLORIDE PWD 20 MEQ PACK PO STA (21:25)
[2018-09-28] MEDS ORDERED: MoRPHine SULFATE 4 MG/ML 1 ML CARP\\VIAL IV PRN (21:25)
[2018-09-28] MEDS ORDERED: CEFEPIME 2,000 MG in SYRINGE 7.5 ML IV STA (21:25)
[2018-09-28] MEDS ORDERED: ACETAMINOPHEN 325 MG TAB PO PRN (21:25)
[2018-09-28] MEDS ORDERED: PROCHLORPERAZINE 5 MG in SYRINGE 4 ML IV PRN (21:25)
[2018-09-28] MEDS ORDERED: GABAPENTIN 100 MG CAP PO PRN (21:25)
[2018-09-28] MEDS ORDERED: CEFEPIME CONSULT ACTIVE PRN (21:56)
[2018-09-28] MEDS ORDERED: VANCOMYCIN CONSULT ACTIVE PRN (21:56)
[2018-09-28 22:21] LABS: Albumin Level 2.9 gm/dl (3.4-5.0); Bilirubin Direct 0.1 mg/dl (0-0.2); Bilirubin,Total 0.3 mg/dl (0.1-1); Total Protein 7.2 gm/dl (6.4-8.2)
--- NOTE | 2018-09-28 22:24 | Pharmacy Report ---
Pharmacy Abx Initial Consult - Date of Service September 28, 2018 - Pharmacy Dosing Scope Date of Consult: 09/28/18 Consultation requested by: Dr. Ramsay Pharmacy is consulted to initiate vancomycin and cefepime IV dosing therapy, order appropriate labs and adjust drug dose/frequency. - Subjective The patient is a 73 year old M admitted on 09/28/18 20:29. - Objective Height: 6 ft 2 in Weight: 64 kg Vital Signs (Past 12hrs): Vital Signs Temp Pulse Pulse Resp BP BP Pulse Ox 09/28/18 21:30 36.9 C 66 18 154/65 H 96 09/28/18 21:09 65 17 153/58 H 95 09/28/18 20:32 75 20 164/82 H 95 09/28/18 19:30 80 20 152/89 H 94 09/28/18 17:53 64 14 155/77 H 98 09/28/18 17:11 36.5 C 73 18 148/66 H 99 Lab Results (24hrs): Laboratory Tests (24 Hours) 09/28/18 09/28/18 17:46 17:46 WBC 8.57 Neut # (Auto) 6.40 Creatinine 1.14 Est Cr Clr Drug Dosing Not Reportable - Risk Factors for Resistance * Antimicrobial use within the last 90 days: clindamycin - Assessment & Plan Assessment * 73 year old M who presented to [facility] on 09/28/18 * MRI of performed at [facility] last week; patient was started on clindamycin for left foot wound * Complains today of increased pain/drainage of left foot Plan Vancomycin IV * Estimated PK Parameters: Vd 0.7 L/kg, Ryan 0.44 hr-1, t1/2 16 hr * Loading dose: 1700 mg (26 mg/kg) * Maintenance dose: 1000 mg IV (~16 mg/kg) every 18 hours * Goal trough level: 15 to 20 mcg/mL * Trough/Random level ordered for 10/01/18 @1730, prior to 4th dose Cefepime * For CrCl 30 to 60 ml/min: if initial IV dose is 2g q12h, reduce maintenance dose to 2g q24h Pharmacy will continue to follow and will adjust dose/frequency as necessary. Thank you.
[2018-09-29] MEDS: OXYCODONE/ACETAMINOPHEN 5mg/325mg TAB PO PRN ×2 (02:12→23:37)
[2018-09-29 06:48] LABS: Basophils # (auto) 0.02 K/uL (0-0.2); Basophils % (auto) 0.3 %; Eosinophils # (auto) 0.25 K/uL (0-0.5); Eosinophils % (auto) 4.3 %; Hematocrit (blood only) 34.6 % (42-52); Hemoglobin 11.7 g/dL (14.0-18.0); Immature Granulocytes # (auto) 0.01 K/uL (0.00-0.02); Immature Granulocytes % (auto) 0.2 %; Lymphocytes # (auto) 1.63 K/uL (1.2-3.4); Lymphocytes % (auto) 28.3 %; Mean Corpuscular Hgb Conc 33.8 g/dL (32-36); Mean Platelet Volume 10.3 fL (7.4-10.4); Monocytes # (auto) 0.46 K/uL (0.11-0.59); Neutrophils # (auto) 3.38 K/uL (1.4-6.5); Neutrophils % (auto) 58.9 %; Platelet Count 230 K/uL (130-400); RDW Coefficient of Variation 18.1 % (11.5-14.5); RDW Standard Deviation 61.2 fL (36.4-46.3); Red Blood Count 3.76 M/uL (4.7-6.1); White Blood Count 5.75 K/uL (4.8-10.8)
[2018-09-29 07:03] LABS: Partial Thromboplastin Ratio 1.4; Partial Thromboplastin Time 36.1 Seconds (21.0-31.0); Prothrombin Time 28.3 Seconds (9.0-12.0)
[2018-09-29 07:22] LABS: BUN Creatinine Ratio 8.1 (10-20); Calcium 8.1 mg/dl (8.5-10.1); Est GFR (African American) 79.1; Est GFR (Non-African American) 68.2; Potassium 3.6 mmol/L (3.5-5.1)
[2018-09-29] MEDS: CLOPIDOGREL BISULFATE 75 MG TAB PO SCH (07:34)
[2018-09-29] MEDS: THIAMINE HCL 50 MG TABLET PO SCH (07:34)
[2018-09-29] MEDS: ATORVASTATIN 40 MG TAB PO SCH (07:35)
[2018-09-29] MEDS: FERROUS SULFATE 325 MG TAB PO SCH (07:35)
[2018-09-29] MEDS: FOLIC ACID 1 MG TAB PO SCH (07:35)
[2018-09-29] MEDS: MULTIVITAMIN TAB PO SCH (07:35)
[2018-09-29] MEDS ORDERED: CONSULT PHARMACY SCH (09:00)
--- NOTE | 2018-09-29 11:08 | Infectious Disease Consult ---
Date of Consultation September 29, 2018 Assessment & Plan (1) Osteomyelitis: Osteomyelitis and cellulitis of the left foot in the setting of severe peripheral arterial disease. Pending further culture results, will continue patient on current broad-spectrum antibiotics. Would consider vascular surgery follow-up/surgery consultation for further evaluation and need for further surgery. Will follow. (2) PAD (peripheral artery disease): History of Present Illness Reason for Consultation: Osteomyelitis, infected wound left foot Attending Physician: Raysa Jain MD History of Present Illness 73-year-old male with history of severe peripheral arterial disease status post femoropopliteal bypass and revision in July 2018, recent admission for myocardial infarction with stenting done, hypertension, DVT, pulmonary emboli on chronic Coumadin therapy, who has been followed for nonhealing left foot wound for the past several weeks at another facility. He had had previous amputation of the first and second toes. He developed increasing redness and swelling with evidence of infection at the end of the third toe. He was given clindamycin, but pain, redness, swelling, have all increased and patient now admitted for further management. He has been started on vancomycin and cefepime. Radiologic studies have revealed evidence of osteomyelitis of the left foot. Allergies Allergy/AdvReac Type Severity Reaction Status Date / Time No Known Allergies Allergy Verified 08/07/18 00:25 Home Medications Home Medications Medication Instructions Recorded Confirmed Type atorvastatin 80 mg PO DAILY 07/31/18 09/28/18 History calcium carbonate-vitamin D3 1 tab PO DAILY 07/31/18 09/28/18 History [Os-Lowell 500 + D3] cyanocobalamin (vitamin B-12) 1,000 mcg PO DAILY 07/31/18 09/28/18 History [Vitamin B-12] ferrous sulfate 325 mg PO DAILY 07/31/18 09/28/18 History folic acid 1 mg PO DAILY 07/31/18 09/28/18 History gabapentin 100 mg PO TID PRN 07/31/18 09/28/18 History magnesium oxide 400 mg PO DAILY 07/31/18 09/28/18 History ranitidine HCl 150 mg PO DAILY 07/31/18 09/28/18 History thiamine HCl (vitamin B1) 50 mg PO DAILY 07/31/18 09/28/18 History warfarin 5 mg PO Q OTHER DAY 07/31/18 09/28/18 History multivitamin [Multiple Vitamins] 1 tab PO DAILY 08/07/18 09/28/18 History clopidogrel 75 mg PO QAM 30 Days #30 tab 08/15/18 09/28/18 Rx clindamycin HCl [Cleocin HCl] 300 mg PO Q6 09/28/18 09/28/18 History warfarin [Coumadin] 7.5 mg PO Q OTHER DAY 09/28/18 09/28/18 History Patient History Medical History Systolic HF (heart failure) (Chronic) Alcohol abuse (Chronic) 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) Personal history of DVT (deep vein thrombosis) (Resolved) Hypertension (Chronic) Tobacco use disorder (Chronic) Warfarin anticoagulation (Chronic) COPD (chronic obstructive pulmonary disease) (Chronic) Malnutrition (Chronic) Peripheral neuropathy (Chronic) Hyperlipidemia (Chronic) CAD (coronary artery disease) (Chronic) Depression (Chronic) Dementia (Chronic) Surgical History Status post amputation of left great toe (Chronic) Status post amputation of right great toe (Chronic) History of femoropopliteal bypass (Resolved) LLE thrombectomy and bypass revision performed in Jul 2018 Hx of CABG (Chronic) S/P coronary artery stent placement (Chronic) RCA stent placed on 08/07/18 History of carpal tunnel surgery (Chronic) Family History Other Diabetes Heart disease Social History marital status: Single Current Living Situation: Alone current occupational status: retired Other Information That Helps Us Care for You: No Feels Safe at Home: Yes Safety Concerns: Feels Safe At This Time Smoking Status: Current every day smoker Tobacco Type: cigarettes Cigarettes per Day: 1 pack per day Do You Dip or Chew Tobacco: No Second Hand Exposure: No Tobacco Cessation Education Requested by Patient: No Hx Alcohol Use: Yes Alcohol type: hard liquor Alcohol Intake Frequency: 3 or more drinks per day Alcohol Intake Frequency Comment: occasional Hx Substance Use: No Beliefs That Will Affect Care: None Communication Ability: Effective Review of Systems All systems were reviewed and are negative except as per HPI Physical Exam 2 Vital Signs (Past 24 Hours): Last Vital Signs Temp 36.5 C 09/29/18 07:06 Pulse 61 09/29/18 07:06 Resp 15 09/29/18 07:06 BP 143/63 H 09/29/18 07:06 Pulse Ox 95 09/29/18 07:06 Constitutional: well developed; no acute distress Chronically ill-appearing Eyes: PERRL, conjunctivae normal, anicteric sclerae ENMT: external ear and nose normal, oropharynx normal Neck: trachea midline, no thyromegaly neck nontender Respiratory: normal respiratory effort, lungs clear to auscultation normal percussion; does not use accessory muscles Cardiovascular: Rate/Rhythm: regular rate and regular rhythm Heart Sounds: normal S1 and normal S2; no gallop, no murmur and no cardiac rub Vessels: normal peripheral pulses; no JVD Gastrointestinal (Abdomen): normal bowel sounds, soft, nontender, no hepatosplenomegaly Musculoskeletal: Head/Neck/Chest: normocephalic and head atraumatic Spine: no cervical spinal tenderness, no thoracic spinal tenderness and no lumbar spinal tenderness Extremities: + amputation noted (Left first and second toe ) Skin: normal turgor; no rashes Left foot amputation site first and second toe with eschar, necrotic changes third toe, erythema foot and toes. Neurologic: moves all extremities, + focal motor deficit and awake Psychiatric: A+Ox3, euthymic affect Orientation: cooperative Lymphatic: no cervical or axillary lymphadenopathy no inguinal lymphadenopathy Results & Data Laboratory Results Short CBC 09/28/18 09/29/18 Range/Units 17:46 06:29 WBC 8.57 5.75 (4.8-10.8) K/uL Hgb 13.0 L 11.7 L (14.0-18.0) g/dL Hct 38.7 L 34.6 L (42-52) % Plt Count 265 230 (130-400) K/uL BMP 09/28/18 09/29/18 17:46 06:29 Sodium 136 140 Potassium 3.4 L 3.6 Chloride 101 108 H Carbon Dioxide 27 29 BUN 9 9 Creatinine 1.14 1.08 Glucose 62 L 91 Calcium 8.8 8.1 L Liver Function 09/28/18 09/28/18 Range/Units 17:46 21:53 Total Bilirubin 0.3 0.3 (0.1-1) mg/dl Direct Bilirubin 0.1 (0-0.2) mg/dl AST 18 17 (15-37) U/L ALT 10 L 11 L (12-78) U/L Alkaline Phosphatase 112 107 (45-117) U/L Albumin 3.2 L 2.9 L (3.4-5.0) gm/dl Diagnostic Findings Microbiology 09/29/18 00:31 Foot,Left Gram Stain - Final _ (1) Osteomyelitis Laterality: left Osteomyelitis location: foot Osteomyelitis type: unspecified type Qualified Code(s): M86.9 - Osteomyelitis, unspecified
[2018-09-29] MEDS: VANCOMYCIN HCL 1,000 MG in SODIUM CHLORIDE 0.9% 250 ML IV SCH (12:19)
--- NOTE | 2018-09-29 13:17 | Hospitalist Progress Note ---
Date of Service September 29, 2018 Assessment & Plan (1) Osteomyelitis: L Toe Gangrene Recent MRI performed at [facility] last week showed osteomyelitis (requesting record from [facility]) Starting on Vanco and cefepime IV Case discussed with vascular Dr. Jovita Hussein will go on vacation starting tomorrow and will not be able to do any procedure Will consult ortho (2) PAD (peripheral artery disease): (3) History of femoropopliteal bypass: Was admitted for occluded femoropopliteal bypass of left lower extremity in July and is s/p bypass revision Has been taking Coumadin daily and INR is therapeutic at 3.0 today will start on heparin drip once INR below [address] Hussein outpatient (4) CAD (coronary artery disease): History of recent inferior wall STEMI s/p stent to RCA No chest pain currently Continue Plavix and statin Will need cardiac clearance if plavix will need to hold for the procedure (5) Systolic HF (heart failure): Recent echo performed on August 07 in setting of acute inferior wall STEMI EF of 40-45% with mildly reduced LV systolic function and akinesis of the proximal and mid inferioposterior badillo Asymptomatic (6) Alcohol abuse: Drinking 1 bottle of bourbon every 2 days at home, per daughter No signs of alcohol withdrawn Continue alcohol withdrawal protocol while inpatient Continue thiamine, folic acid and multivitamin (7) Hypertension: Not on any BP med Continue monitor BP (8) Tobacco use disorder: Counseling on smoking cessation (9) Hyperlipidemia: Continue statin (10) Peripheral neuropathy: Continue gabapentin Code status: FULL CODE Subjective Pt was seen and examined Lying in bed with no distress Pt said that he feels fine He said that he does not have any pain in his left foot He said that he wants to get whatever procedure that needs to be done so he can be discharged home He is not interested to go to any rehab after the procedure He said that he has been staying off his left foot as instructed Denies any chest pain, palpitation, dizziness and SOB Physical Exam 2 Vital Signs (Past 24 Hours): Last Vital Signs Temp 36.5 C 09/29/18 07:06 Pulse 61 09/29/18 07:06 Resp 15 09/29/18 07:06 BP 143/63 H 09/29/18 07:06 Pulse Ox 95 09/29/18 07:06 Physical Exam: General- No acute distress Head- atraumatic Eyes- PERRL, EOMI, ENT- oropharynx clear Neck- supple, no JVD Lungs- clear to auscultation Heart- regular rhythm Abdomen- normal bowel sounds, soft, nontender Extremities- no calf tenderness, normal capillary refill, s/p R great toe amputation. S/p Left great and 2nd toe amputations. Distal aspect of 3rd toe with necrosis and scant purulent drainage. 1-2+ pedal edema of BLE. Neuro- alert, oriented x 3; PERRL, EOMI; no facial palsy; no dysarthria Skin- warm & dry _ (1) Osteomyelitis Laterality: left Osteomyelitis location: foot Osteomyelitis type: unspecified type Qualified Code(s): M86.9 - Osteomyelitis, unspecified
--- NOTE | 2018-09-29 14:42 | Consultation ---
Date of Consultation September 29, 2018 Assessment & Plan (1) PAD (peripheral artery disease): Most likely he will need amputation of the third toe and debridement and further amputation of the left great and second toe. I did order non invasives to check for graft patency. If vascular intervention is needed, he will have to be transferred to another institution as I will no be available til Oct 12. Thank you very much for letting us participate in the care of this patient. Present on Admission?: Yes History of Present Illness Reason for Consultation: Osteomyelitis left foot Attending Physician: Raysa Jain MD History of Present Illness This is a 73-year-old white male well-known to our service. His last procedure was a thrombectomy of his bypass of his left leg with revision of the distal anastomosis. He sees he also has had an amputation of his left great and second toe. He now presents with gangrene of the tip of the third toe as well as osteomyelitis stumps of the amputation site. He is not complaining of any pain in the foot. His only complaint of pain is in the third toe itself. Allergies Allergy/AdvReac Type Severity Reaction Status Date / Time No Known Allergies Allergy Verified 08/07/18 00:25 Home Medications Home Medications Medication Instructions Recorded Confirmed Type atorvastatin 80 mg PO DAILY 07/31/18 09/28/18 History calcium carbonate-vitamin D3 1 tab PO DAILY 07/31/18 09/28/18 History [Os-Lowell 500 + D3] cyanocobalamin (vitamin B-12) 1,000 mcg PO DAILY 07/31/18 09/28/18 History [Vitamin B-12] ferrous sulfate 325 mg PO DAILY 07/31/18 09/28/18 History folic acid 1 mg PO DAILY 07/31/18 09/28/18 History gabapentin 100 mg PO TID PRN 07/31/18 09/28/18 History magnesium oxide 400 mg PO DAILY 07/31/18 09/28/18 History ranitidine HCl 150 mg PO DAILY 07/31/18 09/28/18 History thiamine HCl (vitamin B1) 50 mg PO DAILY 07/31/18 09/28/18 History warfarin 5 mg PO Q OTHER DAY 07/31/18 09/28/18 History multivitamin [Multiple Vitamins] 1 tab PO DAILY 08/07/18 09/28/18 History clopidogrel 75 mg PO QAM 30 Days #30 tab 08/15/18 09/28/18 Rx clindamycin HCl [Cleocin HCl] 300 mg PO Q6 09/28/18 09/28/18 History warfarin [Coumadin] 7.5 mg PO Q OTHER DAY 09/28/18 09/28/18 History Patient History Medical History Systolic HF (heart failure) (Chronic) Alcohol abuse (Chronic) 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) Personal history of DVT (deep vein thrombosis) (Resolved) Hypertension (Chronic) Tobacco use disorder (Chronic) Warfarin anticoagulation (Chronic) COPD (chronic obstructive pulmonary disease) (Chronic) Malnutrition (Chronic) Peripheral neuropathy (Chronic) Hyperlipidemia (Chronic) CAD (coronary artery disease) (Chronic) Depression (Chronic) Dementia (Chronic) Surgical History Status post amputation of left great toe (Chronic) Status post amputation of right great toe (Chronic) History of femoropopliteal bypass (Resolved) LLE thrombectomy and bypass revision performed in Jul 2018 Hx of CABG (Chronic) S/P coronary artery stent placement (Chronic) RCA stent placed on 08/07/18 History of carpal tunnel surgery (Chronic) Family History Other Diabetes Heart disease Social History marital status: Single Current Living Situation: Alone current occupational status: retired Other Information That Helps Us Care for You: No Feels Safe at Home: Yes Safety Concerns: Feels Safe At This Time Smoking Status: Current every day smoker Tobacco Type: cigarettes Cigarettes per Day: 1 pack per day Do You Dip or Chew Tobacco: No Second Hand Exposure: No Tobacco Cessation Education Requested by Patient: No Hx Alcohol Use: Yes Alcohol type: hard liquor Alcohol Intake Frequency: 3 or more drinks per day Alcohol Intake Frequency Comment: occasional Hx Substance Use: No Beliefs That Will Affect Care: None Communication Ability: Effective Review of Systems Constitutional: no problem reported Respiratory: no problem reported Gastrointestinal: no problem reported Musculoskeletal: no problem reported Integumentary: + problem reported (Gangrene of the tip of the left third toe drainage from the amputation site.) Neurologic: no problem reported Psychiatric: no problem reported Physical Exam 2 Vital Signs (Past 24 Hours): Last Vital Signs Temp 36.5 C 09/29/18 07:06 Pulse 61 09/29/18 07:06 Resp 15 09/29/18 07:06 BP 143/63 H 09/29/18 07:06 Pulse Ox 95 09/29/18 07:06 Constitutional: WD/WN, vitals as above Respiratory: normal respiratory effort and + respiratory distress Auscultation: lungs clear to auscultation bilaterally Gastrointestinal (Abdomen): Inspection/Auscultation: abdomen normal to inspection Percussion/Palpation: abdomen soft; abdomen nontender Musculoskeletal: Extremities: + amputation noted (left great and second toes) Psychiatric: Orientation: alert and oriented x 3
--- NOTE | 2018-09-29 16:30 | Ultrasound Report ---
US arterial duplex LE LT CLINICAL HISTORY: 73 years-old Male presenting with gangrene tip of toe, removal of the first and sec ond toes, history of left lower extreme the bypass graft. TECHNIQUE: Real-time grayscale and color and spectral Doppler ultrasound imaging of the left lower ex tremity arteries was performed. Measurements calculated based on NASCET criteria. COMPARISON: 08/09/2018. FINDINGS: LEFT: Common femoral artery: Atherosclerotic plaque resulting in luminal irregularity and narrowing. Tripha sic waveforms. Peak systolic velocity (PSV) 58 cm/s. Deep femoral artery: Atherosclerotic plaque at the origin resulting in luminal irregularity. Triphasi c waveforms. PSV 250 cm/s. Superficial femoral artery: Absent flow. Triphasic waveforms. PSV 0 cm/s. Femoral-tibial bypass graft: Previously noted left femoral-tibial bypass graft occlusion redemonstrat ed. No flow is evident within the graft. Popliteal artery: Patent. Triphasic waveforms. PSV 0 cm/s. Posterior tibial artery: Patent. Monophasic waveforms. PSV 59 cm/s. Peroneal artery: Patent. Monophasic waveforms. PSV 31 cm/s. Anterior tibial artery: Patent. Monophasic waveforms. PSV 24-59 cm/s. Dorsalis pedis: Patent. Monophasic waveforms. PSV 21 cm/s. ANKLE/BRACHIAL INDEX (JERED): Brachial: Right: mmHg, Left: mmHg. Ankle (Posterior tibial): Right: mmHg, Left: mmHg. Ankle (Dorsalis pedis): Right: mmHg, Left: mmHg. JERED: Right: , Left: . Reference ranges: Normal Ankle/Brachial Index (JERED) 1.0-1.4; 0.91-0.99 borderline; < or = 0.9 abnormal (0.7-0.89 mild, 0.51-0.69 moderate, < or = 0.5 severe peripheral arterial disease). Normal Toe/Brachial Index (TBI) > or = 0.6; < 0.6 abnormal (0.34-0.59 mild, 0.12-0.34 moderate, < or = 0.11 severe peripheral arterial disease). Other: 3.0 x 13.1 x 1.4 cm complex anechoic collection with internal septations in the subcutaneous t issue of the left medial mid calf at the site of a scar. IMPRESSION: 1. Redemonstration of the occluded left femoral-tibial bypass graft. 2. Redemonstration of the occluded left superficial femoral artery. 3. Hemodynamically significant stenosis at the origin of the deep femoral artery, which is the presu lexy source of collateral flow to the leg. 4. Diminished flow in the lower leg though the lower leg vessels remain patent. 5. Left calf subcutaneous chronic hematoma. Electronically signed by: Bobby Lazar M.D. 09/29/2018 4:29 PM
--- NOTE | 2018-09-29 16:30 | XRay Report ---
XR foot LT 2V HISTORY: 73 years-old Male r/o osteomyelitis chronic left foot pain with concern for osteomyelitis COMPARISON: Radiographs of the left toes 09/16/2017 TECHNIQUE: 2 views of the left foot FINDINGS: Postoperative changes from amputation of the distal first digit at the level of the first phalangeal base. A small portion of the proximal phalange base is still present. Degenerative changes noted abou t the hindfoot, midfoot and forefoot. The bones appear mildly demineralized. No acute fracture or dis location. No definite erosive changes to suggest acute osteomyelitis. Peripheral arterial calcifications are noted. Moderate soft tissue swelling about the forefoot. Surgi marcy clips project over the medial aspect of the midfoot. IMPRESSION: 1. No acute fracture or dislocation. 2. Moderate soft tissue swelling of the forefoot. No bony erosive changes to suggest acute osteomyeli tis. 3. Postoperative changes of the first digit. The above report was generated using voice recognition software. It may contain grammatical, syntax o r spelling errors. Electronically signed by: Raul Gaffney M.D. 09/29/2018 4:28 PM
--- NOTE | 2018-09-29 20:11 | Anesthesiology Consultation ---
Date of Service September 29, 2018 Assessment & Plan (1) Encounter for pre-operative examination: Chart Review Chart Review: Pending: Refer to Additional Notes / Consult section and entry level account executive initiated Patient with recent IN s/p stenting in July 2018 for left toe amputation on 09/30/2018 as he has left toe gangrene. He has had multiple toe amputations before along with recent LE bypass graft revision. Echo done post stenting in July 2018 showed EF 40-45%. Will order EKG as part of preop assessment. ID and hospitalist service is following patient. History Surgery Operation Date: 09/30/18 10:50 Proposed Procedures p Left Toe Amputation - Stu Gauthier, Height/Weight Height: 6 ft 2 in Weight: 64 kg Allergies Allergy/AdvReac Type Severity Reaction Status Date / Time No Known Allergies Allergy Verified 08/07/18 00:25 Medications Home Medications Medication Instructions Recorded Confirmed Last Taken atorvastatin 80 mg PO DAILY 07/31/18 09/28/18 Unknown calcium carbonate-vitamin D3 1 tab PO DAILY 07/31/18 09/28/18 Unknown [Os-Lowell 500 + D3] cyanocobalamin (vitamin B-12) 1,000 mcg PO DAILY 07/31/18 09/28/18 Unknown [Vitamin B-12] ferrous sulfate 325 mg PO DAILY 07/31/18 09/28/18 Unknown folic acid 1 mg PO DAILY 07/31/18 09/28/18 Unknown gabapentin 100 mg PO TID PRN 07/31/18 09/28/18 Unknown magnesium oxide 400 mg PO DAILY 07/31/18 09/28/18 Unknown ranitidine HCl 150 mg PO DAILY 07/31/18 09/28/18 Unknown thiamine HCl (vitamin B1) 50 mg PO DAILY 07/31/18 09/28/18 Unknown warfarin 5 mg PO Q OTHER DAY 07/31/18 09/28/18 09/27/18 multivitamin [Multiple Vitamins] 1 tab PO DAILY 08/07/18 09/28/18 Unknown clopidogrel 75 mg PO QAM 30 Days #30 tab 08/15/18 09/28/18 Unknown clindamycin HCl [Cleocin HCl] 300 mg PO Q6 09/28/18 09/28/18 09/28/18 11:00 warfarin [Coumadin] 7.5 mg PO Q OTHER DAY 12/19/18 12/19/18 Unknown Active Medications Generic Name Dose Route Start Last Admin Trade Name Freq PRN Reason Stop Dose Admin Atorvastatin Calcium 80 mg 09/29/18 09:00 09/29/18 07:35 Lipitor PO 10/29/18 08:59 80 mg DAILY SABINO Administration Clopidogrel Bisulfate 75 mg 09/29/18 09:00 09/29/18 07:34 Plavix PO 10/29/18 08:59 75 mg QAM SABINO Administration Ferrous Sulfate 325 mg 09/29/18 09:00 09/29/18 07:35 Feosol PO 10/29/18 08:59 325 mg DAILY SABINO Administration Folic Acid 1 mg 09/29/18 09:00 09/29/18 07:35 Folvite PO 10/29/18 08:59 1 mg DAILY SBAINO Administration Vancomycin HCl 1,000 mg/ 270 mls @ 125 mls/hr 09/29/18 12:00 09/29/18 14:35 Sodium Chloride IV 11/10/18 11:59 125 mls/hr Q18H SABINO Infusion Protocol Multivitamins 1 tab 09/29/18 09:00 09/29/18 07:35 Multivitamin PO 10/29/18 08:59 1 tab DAILY SABINO Administration Oxycodone/Acetaminophen 1 tab 09/28/18 21:25 09/29/18 02:12 Percocet 5mg/325mg PO 10/12/18 21:24 1 tab Q4H PRN Administration Pain Ranitidine HCl 150 mg 09/29/18 09:00 09/29/18 07:34 Zantac PO 10/29/18 08:59 150 mg DAILY SABINO Administration Thiamine HCl 50 mg 09/29/18 09:00 09/29/18 07:34 Vitamin B-1 PO 10/29/18 08:59 50 mg DAILY SABINO Administration Past Medical History Medical History Systolic HF (heart failure) (Chronic) Alcohol abuse (Chronic) 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 Depression (Chronic) Dementia (Chronic) PVD (peripheral vascular disease) STEMI (ST elevation myocardial infarction) Jul 2018, s/p ROBBI placement to RCA. Past Family History Family History Other Diabetes Heart disease Past Surgical History Surgical History Status post amputation of left great toe (Chronic) Status post amputation of right great toe (Chronic) Nov 2017. LMA #4. no issues. History of femoropopliteal bypass (Resolved) LLE thrombectomy and bypass revision performed in Jul 2018 Hx of CABG (Chronic) S/P coronary artery stent placement (Chronic) RCA stent placed on 08/07/18 History of carpal tunnel surgery (Chronic) Past Anesthesia History No Hx of Anesthesia Complications and No Family Hx of Anesthesia Complications Social History Smoking Status: Current every day smoker tobacco type: cigarettes Smoking cigarettes per day: 1 pack per day for Do You Dip or Chew Tobacco: No Hx Alcohol Use: Yes Alcohol type: hard liquor alcohol intake frequency: 3 or more drinks per day Hx Substance Use: No substance use type: does not use Exercise / Class Metabolic Activity III < 4 Walking/Shop/Light housework Physical Exam Vital Signs Last Vital Signs Temp 36.4 C L 09/29/18 15:06 Pulse 63 09/29/18 15:06 Resp 18 09/29/18 15:06 BP 145/72 H 09/29/18 15:06 Pulse Ox 96 09/29/18 15:06 Testing Chest X-Ray Date: 08/13/18 FINDINGS: Median sternotomy wires and mediastinal surgical clips noted. Ordering artery stent suspected. Atherosclerosis of the aortic arch. Cardiac silhouette top normal in size. Calcified granulomata may be present in the right lung. Lungs hyperinflated. Interval resolution of left basilar opacity. No large pleural effusion or pneumothorax. Degenerative changes of the thoracic spine. Upper abdomen normal. IMPRESSION: 1. Interval resolution of left basilar opacity. No focal infiltrate on the current exam. No evidence of congestive change. 2. Hyperinflation may suggest underlying emphysema. Echocardiogram Date: 08/08/18 LV systolic function is mildly reduced. Akinesis of the promixal and mid inferoposterior wall. EF 40-45%. Mild MR. Cardiac Catheterization Date: 08/07/18 PCI with balloon angioplasty to RCA in the setting of inferior STEMI/very late stent thrombosis. Laboratory Results 09/29/18 06:29 09/29/18 06:29 PT 28.3 Seconds (9.0-12.0) H 09/29/18 06:29 INR 3.0 (0.9-1.1) H 09/29/18 06:29 APTT 36.1 Seconds (21.0-31.0) H 09/29/18 06:29 09/29/18 00:31 Gram Stain - Final Foot,Left 09/29/18 08:00 POC Glucose 113 H
[2018-09-29] MEDS: CEFEPIME 2,000 MG in SYRINGE 7.5 ML IV SCH (21:34)
[2018-09-30] MEDS: D5W AND LACTATED RINGERS 1,000 ML IV SCH (02:52)
[2018-09-30] MEDS: VANCOMYCIN HCL 1,000 MG in SODIUM CHLORIDE 0.9% 250 ML IV SCH ×2 (05:37→23:14)
[2018-09-30] MEDS ORDERED: ePHEDrine sulfate 50 MG/ML AMP IV PRN (08:33)
[2018-09-30] MEDS ORDERED: HYDROmorphone INJ 1 MG/ML SYRINGE IV PRN (08:33)
[2018-09-30] MEDS ORDERED: ONDANSETRON INJ 2 MG/ML 2 ML VIAL IV PRN (08:33)
[2018-09-30] MEDS ORDERED: ATROPINE SULFATE 0.1 MG/ML 5ML SYR IV PRN (08:33)
[2018-09-30] MEDS ORDERED: fentaNYL citrate 100 MCG/2 ML VIAL IV PRN (08:33)
[2018-09-30] MEDS ORDERED: PHENYLEPHRINE 100MCG/ML 5ML SYR IV PRN (08:33)
[2018-09-30 08:48] LABS: INR 2.9 (0.9-1.1); Prothrombin Time 27.6 Seconds (9.0-12.0)
[2018-09-30 09:06] LABS: BUN Creatinine Ratio 5.6 (10-20); Creatinine Clr Calc Pharmacy 53.5 ml/min; Est GFR (African American) 74.8; Est GFR (Non-African American) 64.6; Potassium 3.3 mmol/L (3.5-5.1)
--- NOTE | 2018-09-30 10:24 | Communication Note ---
Date of Service: September 30, 2018 There is minimal flow seen in the anterior tibial and peroneal arteries of the left leg on duplex. The redo graft is occluded. The [place] vessels are also occluded in the left leg. This patient's had multiple procedures left lower extremity including a bypass along with revision. The vein was not usable therefore prosthetics were used. At this point I would recommend amputation of either the third toe or transmetatarsal amputation. If this does not heal then either re-arteriography for possible revascularization which may be very low yield versus a below-knee amputation would be recommended.
--- NOTE | 2018-09-30 10:43 | History & Physical Bridge Note ---
Date of Service September 30, 2018 History & Physical Bridge Note I have examined the patient, reviewed the History & Physical and in the interval since the performance of the History & Physical I have noted the following changes of clinical significance: no changes noted
[2018-09-30] MEDS ORDERED: fentaNYL citrate 100 MCG/2 ML VIAL ONE (10:49)
[2018-09-30] MEDS ORDERED: MIDAZOLAM HCL 1 MG/ML 2ML VIAL ONE (10:49)
[2018-09-30] MEDS ORDERED: KETAMINE HCL INJ 50 MG/ML 10 ML VIAL ONE (11:23)
[2018-09-30] MEDS ORDERED: BACITRACIN INJ 50,000 UNIT VIAL ONE (11:25)
[2018-09-30] MEDS ORDERED: BUPIVACAINE 0.5 % 5 MG/1 ML MPF 30ML VIAL ONE (11:25)
--- NOTE | 2018-09-30 12:20 | Post Operative Brief Note ---
Immediate Post Op Note v1 Date of Surgery September 30, 2018 Pre & Post Diagnosis Operation Date: 09/30/18 10:50 Pre-Op Diagnosis: Osteomyelitis third toe, gangrene third toe, Left Foot Post-Op Diagnosis: Osteomyelitis third toe, gangrene third toe, Left Foot Procedure Operation Date: 09/30/18 10:50 Actual Procedures p Left Third Toe Amputation(Left) - Stu Gauthier DO Surgeon Stu Gauthier DO [place] None Estimated Blood Loss 1 Findings Consistent with Post-Op Diagnosis Specimens Third toe left foot Anesthesia Type MAC Regional Complications none Disposition Accompanied Patient To Recovery: No Disposition: Recovery Room
--- NOTE | 2018-09-30 12:51 | Anesthesiology Progress Note ---
Date of Service September 30, 2018 Anesthesia Post Procedure Vital Signs Vital Signs: Temp Pulse Pulse Resp BP Pulse Ox 09/30/18 12:40 50 L 13 149/62 H 96 09/30/18 12:30 58 L 21 136/62 97 09/30/18 12:23 36.6 C 65 21 139/84 98 09/30/18 06:55 36.8 C 57 L 17 150/67 H 96 09/29/18 23:01 36.4 C L 68 18 156/74 H 95 09/29/18 15:06 36.4 C L 63 18 145/72 H 96 Pain Intensity Left Foot: Pain Intensity: 7 Notes Mental Status: alert / awake / arousable Patient Amnestic to Procedure: Yes Nausea / Vomiting: adequately controlled Pain: adequately controlled Airway Patency, RR, SpO2: stable & adequate BP & HR: stable & adequate Hydration State: stable & adequate Anesthetic Complications: no major complications apparent
[2018-09-30] MEDS: FERROUS SULFATE 325 MG TAB PO SCH (13:18)
[2018-09-30] MEDS: ATORVASTATIN 40 MG TAB PO SCH (13:18)
[2018-09-30] MEDS: FOLIC ACID 1 MG TAB PO SCH (13:18)
[2018-09-30] MEDS: MULTIVITAMIN TAB PO SCH (13:19)
[2018-09-30] MEDS: CLOPIDOGREL BISULFATE 75 MG TAB PO SCH (13:19)
[2018-09-30] MEDS: THIAMINE HCL 50 MG TABLET PO SCH (13:19)
--- NOTE | 2018-09-30 15:12 | Infectious Disease Progress Nt ---
Date of Service September 30, 2018 Assessment & Plan (1) Osteomyelitis: Osteomyelitis and cellulitis of the left foot in the setting of severe peripheral arterial disease. Pending further culture results, will continue patient on current broad-spectrum antibiotics. Will adjust once final culture results are available. Will follow. (2) PAD (peripheral artery disease): Subjective Patient seen in follow-up for left foot infection. Now status post amputation of toe. Expected postoperative discomfort. Remains afebrile. Operative cultures are pending. Review of Systems All systems reviewed & are unremarkable except as noted in HPI & below Physical Exam 2 Vital Signs (Past 24 Hours): Last Vital Signs Temp 36.5 C 09/30/18 15:06 Pulse 66 09/30/18 15:06 Resp 18 09/30/18 15:06 BP 137/67 09/30/18 15:06 Pulse Ox 95 09/30/18 15:06 Constitutional: well developed; no acute distress Eyes: PERRL, conjunctivae normal, anicteric sclerae ENMT: external ear and nose normal, oropharynx normal Neck: trachea midline, no thyromegaly neck nontender Respiratory: normal respiratory effort, lungs clear to auscultation normal percussion; does not use accessory muscles Cardiovascular: Rate/Rhythm: regular rate and regular rhythm Heart Sounds: normal S1 and normal S2; no gallop, no murmur and no cardiac rub Vessels: normal peripheral pulses; no JVD Gastrointestinal (Abdomen): normal bowel sounds, soft, nontender, no hepatosplenomegaly Musculoskeletal: Head/Neck/Chest: normocephalic and head atraumatic Spine: no cervical spinal tenderness, no thoracic spinal tenderness and no lumbar spinal tenderness Extremities: + amputation noted (Left first and second toe ) Skin: normal turgor; no rashes Surgical dressing intact left foot Neurologic: moves all extremities, + focal motor deficit and awake Psychiatric: A+Ox3, euthymic affect Orientation: cooperative Lymphatic: no cervical or axillary lymphadenopathy no inguinal lymphadenopathy _ (1) Osteomyelitis Laterality: left Osteomyelitis location: foot Osteomyelitis type: unspecified type Qualified Code(s): M86.9 - Osteomyelitis, unspecified
--- NOTE | 2018-09-30 18:02 | Hospitalist Progress Note ---
Date of Service September 30, 2018 Assessment & Plan (1) Osteomyelitis: L Toe Gangrene Recent MRI performed at [facility] last week showed L toe osteomyelitis S/P Left Third Toe Amputation performed today by Dr. Stu Gauthier ID on board recommended to continue Vanco and cefepime IV PT/OT Monitor H/H (2) PAD (peripheral artery disease): (3) History of femoropopliteal bypass: Was admitted for occluded femoropopliteal bypass of left lower extremity in July and is s/p bypass revision Arterial duplex showed redemonstration of the occluded left femoral-tibial bypass graft. redemonstration of the occluded left superficial femoral artery. INR 2.9 today Will resume coumadin tomorrow Follows with Dr. Hussein outpatient (4) CAD (coronary artery disease): History of recent inferior wall STEMI s/p stent to RCA No chest pain currently Continue Plavix and statin (5) Systolic HF (heart failure): Recent echo performed on August 07 in setting of acute inferior wall STEMI EF of 40-45% with mildly reduced LV systolic function and akinesis of the proximal and mid inferioposterior badillo Asymptomatic (6) Alcohol abuse: Drinking 1 bottle of bourbon every 2 days at home, per daughter No signs of alcohol withdrawn Continue alcohol withdrawal protocol while inpatient Continue thiamine, folic acid and multivitamin (7) Hypertension: Not on any BP med Continue monitor BP (8) Tobacco use disorder: Counseling on smoking cessation (9) Hyperlipidemia: Continue statin (10) Peripheral neuropathy: Continue gabapentin Code status: FULL CODE Subjective Pt was seen and examined Lying in bed with no distress Pt had toe amputation done this morning He said that he is not having any pain Denies any chest pain, palpitation, dizziness and SOB Physical Exam 2 Vital Signs (Past 24 Hours): Last Vital Signs Temp 36.7 C 09/30/18 16:00 Pulse 66 09/30/18 16:00 Resp 18 09/30/18 16:00 BP 145/66 H 09/30/18 16:00 Pulse Ox 95 09/30/18 16:00 Physical Exam: General- No acute distress Head- atraumatic Eyes- PERRL, EOMI, ENT- oropharynx clear Neck- supple, no JVD Lungs- clear to auscultation Heart- regular rhythm Abdomen- normal bowel sounds, soft, nontender Extremities- no calf tenderness, Left foot wrapped with dressing Neuro- alert, oriented x 3; PERRL, EOMI; no facial palsy; no dysarthria Skin- warm & dry _ (1) Osteomyelitis Laterality: left Osteomyelitis location: foot Osteomyelitis type: unspecified type Qualified Code(s): M86.9 - Osteomyelitis, unspecified
[2018-09-30] MEDS ORDERED: POTASSIUM CHLORIDE 10 MEQ TABCR PO ONE (19:00)
--- NOTE | 2018-09-30 20:24 | Operative Report ---
DATE OF OPERATION: 09/30/2018 PREOPERATIVE DIAGNOSES: 1. Left third toe osteomyelitis. 2. Gangrene of the left third toe. POSTOPERATIVE DIAGNOSES: 1. Left third toe osteomyelitis. 2. Gangrene of the left third toe. PROCEDURE: Left 3rd toe amputation. SURGEON: DO HARIKA Emery ASSISTANT: None. ANESTHESIA: Digital block with sedation. SPECIMENS: Left third toe. DRAINS: None. COMPLICATIONS: None. BLOOD LOSS: 1 mL. PERTINENT HISTORY: This is a 73-year-old gentleman who has a serious case of peripheral vascular disease. He has had attempted multiple intravascular procedures by the department of vascular surgery. He had prior stenting which has failed and he developed painful necrosis of his left third toe. He had other studies which demonstrated osteomyelitis and gangrene. The patient was then scheduled for surgery as indicated with the understanding that he may or may not have to have further surgery including further amputation of the forefoot or transmetatarsal amputation up to and including the possibility of below-knee amputation. The patient understands this and decided to proceed with the procedure as indicated. All potential risks, benefits, complications, alternatives, rehab, potential for incomplete relief of symptoms, need for further surgery, DVT, PE, , persistent pain, swelling, scarring, weakness, neurovascular injury, wound complications, or possible need for further amputation were discussed with the patient. The patient decided to proceed with the procedure as indicated. DESCRIPTION OF PROCEDURE: The patient was taken to the operative suite, placed supine on the operating table. After review of consent and identification of proper operative site, the patient was sedated. Left foot was then sterilely prepped and draped in usual fashion, elevated and exsanguinated with an Esmarch bandage partially, and an Esmarch tourniquet was applied over sterile surgical towel at the level of the ankle. Next, approximately 15 mL of 0.5% Marcaine plain was then injected at the base of the left third toe and also at the distal aspect of the metatarsal neck of the third ray. Next, a 15-blade scalpel was used to make an incision circumferentially around the mid portion of the left third toe using a racquet-shaped incision. Next, the middle phalanx and distal phalanx were then excised and passed off as specimen, followed by careful dissection with appropriate retractors placed both medial and lateral. The Al rakes were used to protect the soft tissue windows and the neurovascular bundles medially and laterally. The joint capsule and the flexor tendon were then transected with a 15-blade scalpel and the proximal phalanx of the left third toe was then removed and passed off as specimen. Next, there was noted to be no abscess formation proximally and no further wound necrosis. Next, the tissue flap was then contoured and shaped to have a low tension flap closure. Clear margins were noted without any further wound necrosis. Next, the wound was copiously irrigated with sterile normal saline followed by closure of the skin with interrupted 3-0 nylon sutures using a combination of horizontal mattress and vertical mattress sutures. Next, a sterile compressive dressing was applied overwrapped with an Joaquín wrap. Tourniquet was released. The patient was awakened and taken to recovery in stable condition. I attest to the content of the Intraoperative Record and any orders documented therein. Any exception s are noted below.
[2018-09-30] MEDS: CEFEPIME 2,000 MG in SYRINGE 7.5 ML IV SCH (21:56)
[2018-10-01] MEDS: OXYCODONE/ACETAMINOPHEN 5mg/325mg TAB PO PRN ×4 (03:08→23:28)
[2018-10-01] MEDS: D5W AND LACTATED RINGERS 1,000 ML IV SCH (05:41)
[2018-10-01 06:58] LABS: Hematocrit (blood only) 33.5 % (42-52); Hemoglobin 11.4 g/dL (14.0-18.0); Mean Platelet Volume 10.5 fL (7.4-10.4); Platelet Count 240 K/uL (130-400); RDW Coefficient of Variation 17.6 % (11.5-14.5); RDW Standard Deviation 58.8 fL (36.4-46.3); Red Blood Count 3.68 M/uL (4.7-6.1); White Blood Count 7.75 K/uL (4.8-10.8)
[2018-10-01 07:24] LABS: INR 2.6 (0.9-1.1); Prothrombin Time 24.8 Seconds (9.0-12.0)
[2018-10-01 07:38] LABS: BUN Creatinine Ratio 5.9 (10-20); Calcium 8.2 mg/dl (8.5-10.1); Est GFR (African American) 74.1; Est GFR (Non-African American) 63.9; Potassium 3.5 mmol/L (3.5-5.1)
[2018-10-01] MEDS: CLOPIDOGREL BISULFATE 75 MG TAB PO SCH (09:07)
[2018-10-01] MEDS: ATORVASTATIN 40 MG TAB PO SCH (09:07)
[2018-10-01] MEDS: MULTIVITAMIN TAB PO SCH (09:08)
[2018-10-01] MEDS: THIAMINE HCL 50 MG TABLET PO SCH (09:08)
[2018-10-01] MEDS: FERROUS SULFATE 325 MG TAB PO SCH (09:09)
[2018-10-01] MEDS: FOLIC ACID 1 MG TAB PO SCH (09:10)
--- NOTE | 2018-10-01 12:32 | Orthopedic Progress Note ---
Date of Service October 01, 2018 Assessment & Plan (1) Status post amputation of toe of left foot: POD #1 s/p left 3rd toe amputation. Dressing changed today. Plan for dressing change tomorrow and possible sign off. May heel WB if tolerated. Pain control. Subjective States the foot is painful. Has been off of the foot. The pain is controlled but with any pressure around the incision, the pain increases. Physical Exam 2 Vital Signs (Past 24 Hours): Last Vital Signs Temp 36.5 C 10/01/18 07:00 Pulse 67 10/01/18 07:00 Resp 18 10/01/18 07:00 BP 149/65 H 10/01/18 10:06 Pulse Ox 94 10/01/18 07:00 Constitutional: WD/WN, vitals as above Musculoskeletal: Left foot: 3rd toe amp site is well approximated. Mild bloody drainage. Moderate drainage on the dressing during dressing change. Minimal erythema at the surgical site. Stable yellow eschar over the great toe and 2nd toe amp sites.
--- NOTE | 2018-10-01 14:40 | Hospitalist Progress Note ---
Date of Service October 01, 2018 Assessment & Plan (1) Osteomyelitis: L Toe Gangrene Recent MRI performed at [facility] last week showed L toe osteomyelitis S/P Left Third Toe Amputation performed today by Dr. Stu Gauthier Wound cx grew staph aureus and gram negative bacilli ID on board recommended to continue Vanco and cefepime IV OK for heel weightbearing if tolerated as per ortho Hgb stable PT/OT eval (2) PAD (peripheral artery disease): (3) History of femoropopliteal bypass: Was admitted for occluded femoropopliteal bypass of left lower extremity in July and is s/p bypass revision Arterial duplex showed redemonstration of the occluded left femoral-tibial bypass graft. redemonstration of the occluded left superficial femoral artery. INR 2.6 today Resume coumadin today Follows with Dr. Hussein outpatient (4) CAD (coronary artery disease): History of recent inferior wall STEMI s/p stent to RCA No chest pain currently Continue Plavix and statin (5) Systolic HF (heart failure): Recent echo performed on August 07 in setting of acute inferior wall STEMI EF of 40-45% with mildly reduced LV systolic function and akinesis of the proximal and mid inferioposterior badillo Asymptomatic (6) Alcohol abuse: Drinking 1 bottle of bourbon every 2 days at home, per daughter No signs of alcohol withdrawn Continue alcohol withdrawal protocol while inpatient Continue thiamine, folic acid and multivitamin (7) Hypertension: Not on any BP med Continue monitor BP (8) Tobacco use disorder: Counseling on smoking cessation (9) Hyperlipidemia: Continue statin (10) Peripheral neuropathy: Continue gabapentin Code status: FULL CODE Subjective Pt was seen and examined Lying in bed with no distress Pt said that he feels fine Denies any pain, palpitation and SOB Physical Exam 2 Vital Signs (Past 24 Hours): Last Vital Signs Temp 36.7 C 10/01/18 12:31 Pulse 56 L 10/01/18 12:31 Resp 16 10/01/18 12:31 BP 158/71 H 10/01/18 12:31 Pulse Ox 97 10/01/18 12:31 Physical Exam: General- No acute distress Head- atraumatic Eyes- PERRL, EOMI, ENT- oropharynx clear Neck- supple, no JVD Lungs- clear to auscultation Heart- regular rhythm Abdomen- normal bowel sounds, soft, nontender Extremities- no calf tenderness, Left foot wrapped with dressing Neuro- alert, oriented x 3; PERRL, EOMI; no facial palsy; no dysarthria Skin- warm & dry _ (1) Osteomyelitis Laterality: left Osteomyelitis location: foot Osteomyelitis type: unspecified type Qualified Code(s): M86.9 - Osteomyelitis, unspecified
[2018-10-01] MEDS: WARFARIN SOD 7.5 MG TAB PO SCH (16:44)
[2018-10-01] MEDS ORDERED: VANCOMYCIN TROUGH ONE (17:30)
[2018-10-01] MEDS: VANCOMYCIN HCL 1,000 MG in SODIUM CHLORIDE 0.9% 250 ML IV SCH (18:45)
[2018-10-01] MEDS: CEFEPIME 2,000 MG in SYRINGE 7.5 ML IV SCH (21:47)
[2018-10-02 06:23] LABS: Hematocrit (blood only) 34.8 % (42-52); Hemoglobin 12.2 g/dL (14.0-18.0); Mean Corpuscular Hgb Conc 35.1 g/dL (32-36); Mean Corpuscular Volume 92.1 fL (80-100); Mean Platelet Volume 10.4 fL (7.4-10.4); Platelet Count 242 K/uL (130-400); RDW Coefficient of Variation 17.5 % (11.5-14.5); RDW Standard Deviation 59.4 fL (36.4-46.3); Red Blood Count 3.78 M/uL (4.7-6.1); White Blood Count 7.51 K/uL (4.8-10.8)
[2018-10-02 06:47] LABS: INR 2.6 (0.9-1.1); Prothrombin Time 24.6 Seconds (9.0-12.0)
--- NOTE | 2018-10-02 08:59 | Orthopedic Progress Note ---
Date of Service October 02, 2018 Assessment & Plan (1) Status post amputation of toe of left foot: POD #2 s/p left 3rd toe amputation. Dressing changed today. May heel WB if tolerated. Pain control. Ortho to sign off. Consider home nursing dressing changes upon d/c. Will follow up with Dr. Gauthier's clinic in 1 week. Subjective No new complaints. Left foot pain is improved today. Physical Exam 2 Vital Signs (Past 24 Hours): Last Vital Signs Temp 36.8 C 10/02/18 07:56 Pulse 55 L 10/02/18 07:56 Resp 16 10/02/18 07:56 BP 151/77 H 10/02/18 07:56 Pulse Ox 95 10/02/18 07:56 Constitutional: WD/WN, vitals as above Musculoskeletal: Left foot: 3rd toe amp site is well approximated. Mild erythema around the incision. Mild serosanguinous drainage on the dressing. Stable eschar at the great toe/2nd toe amp sites. No streaking noted. Less discomfort today with dressing change.
[2018-10-02] MEDS: FERROUS SULFATE 325 MG TAB PO SCH (09:36)
[2018-10-02] MEDS: FOLIC ACID 1 MG TAB PO SCH (09:37)
[2018-10-02] MEDS: CLOPIDOGREL BISULFATE 75 MG TAB PO SCH (09:37)
[2018-10-02] MEDS: THIAMINE HCL 50 MG TABLET PO SCH (09:37)
[2018-10-02] MEDS: MULTIVITAMIN TAB PO SCH (09:38)
[2018-10-02] MEDS: ATORVASTATIN 40 MG TAB PO SCH (09:39)
[2018-10-02] MEDS: VANCOMYCIN HCL 1,000 MG in SODIUM CHLORIDE 0.9% 250 ML IV SCH (12:22)
[2018-10-02] MEDS ORDERED: WARFARIN SOD 5 MG TAB PO SCH (16:00)
--- NOTE | 2018-10-02 16:30 | Hospitalist Progress Note ---
Date of Service October 02, 2018 Assessment & Plan (1) Osteomyelitis: L Toe Gangrene Recent MRI performed at [facility] last week showed L toe osteomyelitis S/P day #2 Left Third Toe Amputation performed by Dr. Gauthier Wound cx grew staph aureus and Acinetobacter baumannii ID on board On Vanco and cefepime IV Will discussed with ID about abx on discharge OK for heel weightbearing if tolerated as per ortho Hgb stable PT/OT eval (2) PAD (peripheral artery disease): (3) History of femoropopliteal bypass: Was admitted for occluded femoropopliteal bypass of left lower extremity in July and is s/p bypass revision Arterial duplex showed redemonstration of the occluded left femoral-tibial bypass graft. redemonstration of the occluded left superficial femoral artery. INR 2.6 today Continue Coumadin home dose Follows with Dr. Hussein outpatient (4) CAD (coronary artery disease): History of recent inferior wall STEMI s/p stent to RCA No chest pain currently Continue Plavix and statin (5) Systolic HF (heart failure): Recent echo performed on August 07 in setting of acute inferior wall STEMI EF of 40-45% with mildly reduced LV systolic function and akinesis of the proximal and mid inferioposterior badillo Asymptomatic (6) Alcohol abuse: Drinking 1 bottle of bourbon every 2 days at home, per daughter No signs of alcohol withdrawn Continue alcohol withdrawal protocol while inpatient Continue thiamine, folic acid and multivitamin (7) Hypertension: Not on any BP med Continue monitor BP (8) Tobacco use disorder: Counseling on smoking cessation (9) Hyperlipidemia: Continue statin (10) Peripheral neuropathy: Continue gabapentin Code status: FULL CODE Disposition Possible discharge tomorrow Subjective Pt was seen and examined Lying in bed with no distress Pt does not have any pain in his foot He does not want to go to any rehab He would like to be discharge by tomorrow the latest Denies any chest pain, palpitation and SOB Physical Exam 2 Vital Signs (Past 24 Hours): Last Vital Signs Temp 36.8 C 10/02/18 14:53 Pulse 62 10/02/18 14:53 Resp 18 10/02/18 14:53 BP 150/69 H 10/02/18 14:53 Pulse Ox 95 10/02/18 14:53 Physical Exam: General- No acute distress Head- atraumatic Eyes- PERRL, EOMI, ENT- oropharynx clear Neck- supple, no JVD Lungs- clear to auscultation Heart- regular rhythm Abdomen- normal bowel sounds, soft, nontender Extremities- no calf tenderness, Left foot wrapped with dressing Neuro- alert, oriented x 3; PERRL, EOMI; no facial palsy; no dysarthria Skin- warm & dry _ (1) Osteomyelitis Laterality: left Osteomyelitis location: foot Osteomyelitis type: unspecified type Qualified Code(s): M86.9 - Osteomyelitis, unspecified
[2018-10-02] MEDS: CEFEPIME 2,000 MG in SYRINGE 7.5 ML IV SCH (21:49)
[2018-10-02] MEDS: OXYCODONE/ACETAMINOPHEN 5mg/325mg TAB PO PRN (23:47)
[2018-10-03] MEDS: VANCOMYCIN HCL 1,000 MG in SODIUM CHLORIDE 0.9% 250 ML IV SCH (05:33)
--- NOTE | 2018-10-03 08:40 | Anesthesiology Progress Note ---
Date of Service October 03, 2018 Anesthesia Post Procedure Vital Signs Vital Signs: Temp Pulse Resp BP BP Pulse Ox 10/03/18 07:19 36.8 C 62 16 154/72 H 95 10/02/18 23:52 36.9 C 62 16 138/72 95 10/02/18 14:53 36.8 C 62 18 150/69 H 95 Pain Intensity Left Foot: Pain Intensity: 4 Notes Mental Status: alert / awake / arousable and participated in evaluation Nausea / Vomiting: adequately controlled Pain: adequately controlled Airway Patency, RR, SpO2: stable & adequate BP & HR: stable & adequate Hydration State: stable & adequate
[2018-10-03] MEDS: CLOPIDOGREL BISULFATE 75 MG TAB PO SCH (08:44)
[2018-10-03] MEDS: ATORVASTATIN 40 MG TAB PO SCH (08:44)
[2018-10-03] MEDS: MULTIVITAMIN TAB PO SCH (08:44)
[2018-10-03] MEDS: FOLIC ACID 1 MG TAB PO SCH (08:44)
[2018-10-03] MEDS: THIAMINE HCL 50 MG TABLET PO SCH (08:44)
[2018-10-03] MEDS: FERROUS SULFATE 325 MG TAB PO SCH (08:44)
--- NOTE | 2018-10-03 14:37 | Hospitalist Progress Note ---
Date of Service October 03, 2018 Assessment & Plan (1) Osteomyelitis: L Toe Gangrene Recent MRI performed at [facility] last week showed L toe osteomyelitis S/P day #3 Left Third Toe Amputation performed by Dr. Gauthier Wound cx grew staph aureus and Acinetobacter baumannii On Vanco and cefepime IV day #6 case discussed with ID recommended to discharge to oral Bactrim to complete 3 to 4 weeks course OK for heel weightbearing if tolerated as per ortho follow up with ortho Dr. Gauthier in 1 week Monitor renal function while on bactrim Hgb stable Continue PT/OT (2) PAD (peripheral artery disease): (3) History of femoropopliteal bypass: Was admitted for occluded femoropopliteal bypass of left lower extremity in July and is s/p bypass revision Arterial duplex showed redemonstration of the occluded left femoral-tibial bypass graft. redemonstration of the occluded left superficial femoral artery. INR 2.6 yesterday Continue Coumadin home dose Monitor PT/INR Follows with Dr. Hussein outpatient (4) CAD (coronary artery disease): History of recent inferior wall STEMI s/p stent to RCA No chest pain currently Continue Plavix and statin (5) Systolic HF (heart failure): Recent echo performed on August 07 in setting of acute inferior wall STEMI EF of 40-45% with mildly reduced LV systolic function and akinesis of the proximal and mid inferioposterior badillo Asymptomatic (6) Alcohol abuse: Drinking 1 bottle of bourbon every 2 days at home, per daughter No signs of alcohol withdrawn Continue alcohol withdrawal protocol while inpatient Continue thiamine, folic acid and multivitamin (7) Hypertension: Not on any BP med Continue monitor BP (8) Tobacco use disorder: Counseling on smoking cessation (9) Hyperlipidemia: Continue statin (10) Peripheral neuropathy: Continue gabapentin Code status: FULL CODE Disposition Discharge home with home health today Subjective Pt was seen and examined Lying in bed with no distress Pt said he feels fine He said that he feels fine to go home Denies any chest pain, palpitation, dizziness and SOB Physical Exam 2 Vital Signs (Past 24 Hours): Last Vital Signs Temp 36.8 C 10/03/18 07:19 Pulse 62 10/03/18 07:19 Resp 16 10/03/18 07:19 BP 154/72 H 10/03/18 07:19 Pulse Ox 95 10/03/18 07:19 Physical Exam: General- No acute distress Head- atraumatic Eyes- PERRL, EOMI, ENT- oropharynx clear Neck- supple, no JVD Lungs- clear to auscultation Heart- regular rhythm Abdomen- normal bowel sounds, soft, nontender Extremities- no calf tenderness, Left foot wrapped with dressing Neuro- alert, oriented x 3; PERRL, EOMI; no facial palsy; no dysarthria Skin- warm & dry _ (1) Osteomyelitis Laterality: left Osteomyelitis location: foot Osteomyelitis type: unspecified type Qualified Code(s): M86.9 - Osteomyelitis, unspecified
[2018-10-03] MEDS: WARFARIN SOD 7.5 MG TAB PO SCH (15:23)
[2018-10-03] MEDS ORDERED: SULFAMETHOXAZOLE/TRIMETHOPRIM DS 800/160MG TAB PO SCH (17:05)
[2018-10-03] MEDS ORDERED: SEPTRA DS HOME PACK 1 EA VIAL PO ONE (17:30)
[2018-10-05] MEDS ORDERED: VANCOMYCIN TROUGH ONE (17:30)
--- NOTE | 2018-10-18 10:02 | Discharge Summary ---
Date of Service 10/03/18 Admission HPI Per Admitting Provider This is a 73-year-old male with a PMH of PAD (s/p bilateral femoropopliteal bypass with LLE thrombectomy and revision of bypass in Jul 2018), h/o DVT/PE, dementia, CAD (s/p CABG and recent STEMI s/p stent), systolic CHF, HTN, COPD, tobacco use disorder, etoh dependence and other medical problems listed below who presents with worsening left lower extremity pain x 2 weeks. Denies any associated weakness or paresthesias. Per daughter, home health nurse notified her of left toe infection [address] Castro (new PCP) at [facility] has been monitoring infection. Ordered MRI of left foot last week, which reportedly showed osyeomyelitis. Patient was started on PO Clindamycin QID. Pain has worsened over the past few days and wound has opened up, so daughter Rosio brought patient to ED for further evaluation. Patient has been admitted twice in the past few months. During July 31- admission, patient was found to have an occluded left femoropopliteal bypass graft and Dr. Hussein performed left lower extremity thrombectomy and revision of bypass. Patient returned to the ED on August 07 with chest pain and was found to have an acute STEMI in inferior leads and is s/p RCA stent placement. Was initially on Plavix and aspirin, along with Coumadin for chronic PAD, but aspirin has since been discontinued per cardiology. Daughter has been coming to the house every day to ensure that patient is taking medication correctly, in setting of worsening dementia. Denies any fever, chills, lightheadedness, visual changes, chest pain, shortness of breath, abdominal pain, nausea, vomiting, dysuria, diarrhea or constipation. Continues to smoke 10-20 cigarettes daily. Drinks a bottle of bourbon every 2 days, per daughter. Admission Exam Per Admitting Provider General Appearance: WD/WN, no apparent distress, chronically ill appearing Head: normocephalic, atraumatic Eyes: normal inspection, PERRL, EOMI ENT: hearing grossly normal, pharynx normal (moist mucous membranes) Neck: supple, no JVD, no adenopathy Respiratory/Chest: lungs clear to auscultation. No wheezes, rales or rhonci. No respiratory distress or accessory muscle use Cardiovascular: regular rate, rhythm, no murmur, normal peripheral pulses Abdomen/GI: normal bowel sounds, soft, non-tender to palpation Extremities/Musculoskelatal: no calf tenderness, normal capillary refill, s/p R great toe amputation. S/p Left great and 2nd toe amputations. Distal aspect of 3rd toe with necrosis and scant purulent drainage. 1-2+ pedal edema of BLE. Neurologic/Psych: alert, normal mood/affect, oriented x 3 Skin: normal color, warm/dry. BLE erythema to mid-monroy. Principal Diagnosis Osteomyelitis L Toe Gangrene S/P day Left Third Toe Amputation PAD Discharge Exam General- No acute distress Head- atraumatic Eyes- PERRL, EOMI, ENT- oropharynx clear Neck- supple, no JVD Lungs- clear to auscultation Heart- regular rhythm Abdomen- normal bowel sounds, soft, nontender Extremities- no calf tenderness, Left foot wrapped with dressing Neuro- alert, oriented x 3; PERRL, EOMI; no facial palsy; no dysarthria Skin- warm & dry Discharge Data Allergies Allergy/AdvReac Type Severity Reaction Status Date / Time No Known Allergies Allergy Verified 10/09/18 05:54 Consultations 09/28/18 18:22 ED Decision to Admit Stat 09/28/18 20:37 Consult Health Information Management Routine 09/28/18 21:25 Consult Case Management - Discharge Planning Routine Consult Infectious Diseases Routine 09/28/18 23:51 Consult Vascular Surgery Routine 09/29/18 13:49 Consult Orthopedic Surgery Routine Procedures Performed Operation Date: 09/30/18 10:50 Actual Procedures p Left Third Toe Amputation(Left) - Stu Gauthier DO Ordered Studies 09/29/18 14:30 US arterial duplex LE LT Routine US arterial duplex LE LT CLINICAL HISTORY: 73 years-old Male presenting with gangrene tip of toe, removal of the first and second toes, history of left lower extreme the bypass graft. TECHNIQUE: Real-time grayscale and color and spectral Doppler ultrasound imaging of the left lower extremity arteries was performed. Measurements calculated based on NASCET criteria. COMPARISON: 08/09/2018. FINDINGS: LEFT: Common femoral artery: Atherosclerotic plaque resulting in luminal irregularity and narrowing. Triphasic waveforms. Peak systolic velocity (PSV) 58 cm/s. Deep femoral artery: Atherosclerotic plaque at the origin resulting in luminal irregularity. Triphasic waveforms. PSV 250 cm/s. Superficial femoral artery: Absent flow. Triphasic waveforms. PSV 0 cm/s. Femoral-tibial bypass graft: Previously noted left femoral-tibial bypass graft occlusion redemonstrated. No flow is evident within the graft. Popliteal artery: Patent. Triphasic waveforms. PSV 0 cm/s. Posterior tibial artery: Patent. Monophasic waveforms. PSV 59 cm/s. Peroneal artery: Patent. Monophasic waveforms. PSV 31 cm/s. Anterior tibial artery: Patent. Monophasic waveforms. PSV 24-59 cm/s. Dorsalis pedis: Patent. Monophasic waveforms. PSV 21 cm/s. ANKLE/BRACHIAL INDEX (JERED): Brachial: Right: mmHg, Left: mmHg. Ankle (Posterior tibial): Right: mmHg, Left: mmHg. Ankle (Dorsalis pedis): Right: mmHg, Left: mmHg. JERED: Right: , Left: . Reference ranges: Normal Ankle/Brachial Index (JERED) 1.0-1.4; 0.91-0.99 borderline; < or = 0.9 abnormal (0.7-0.89 mild, 0.51-0.69 moderate, < or = 0.5 severe peripheral arterial disease). Normal Toe/Brachial Index (TBI) > or = 0.6; < 0.6 abnormal (0.34-0.59 mild, 0.12 -0.34 moderate, < or = 0.11 severe peripheral arterial disease). Other: 3.0 x 13.1 x 1.4 cm complex anechoic collection with internal septations in the subcutaneous tissue of the left medial mid calf at the site of a scar. IMPRESSION: 1. Redemonstration of the occluded left femoral-tibial bypass graft. 2. Redemonstration of the occluded left superficial femoral artery. 3. Hemodynamically significant stenosis at the origin of the deep femoral artery, which is the presumable source of collateral flow to the leg. 4. Diminished flow in the lower leg though the lower leg vessels remain patent. 5. Left calf subcutaneous chronic hematoma. Electronically signed by: Bobby Lazar M.D. 09/29/2018 4:29 PM Dictated: 09/29/18 162 Transcribed: 09/29/18 162 XR foot LT 2V HISTORY: 73 years-old Male r/o osteomyelitis chronic left foot pain with concern for osteomyelitis COMPARISON: Radiographs of the left toes 09/16/2017 TECHNIQUE: 2 views of the left foot FINDINGS: Postoperative changes from amputation of the distal first digit at the level of the first phalangeal base. A small portion of the proximal phalange base is still present. Degenerative changes noted about the hindfoot, midfoot and forefoot. The bones appear mildly demineralized. No acute fracture or dislocation. No definite erosive changes to suggest acute osteomyelitis. Peripheral arterial calcifications are noted. Moderate soft tissue swelling about the forefoot. Surgical clips project over the medial aspect of the midfoot. IMPRESSION: 1. No acute fracture or dislocation. 2. Moderate soft tissue swelling of the forefoot. No bony erosive changes to suggest acute osteomyelitis. 3. Postoperative changes of the first digit. The above report was generated using voice recognition software. It may contain grammatical, syntax or spelling errors. Electronically signed by: Raul Gaffney M.D. 09/29/2018 4:28 PM Dictated: 09/29/18 1626 Transcribed: 09/29/18 1626 Hospital Course (1) Osteomyelitis: L Toe Gangrene Recent MRI performed at [facility] last week showed L toe osteomyelitis S/P day #3 Left Third Toe Amputation performed by Dr. Gauthier Wound cx grew staph aureus and Acinetobacter baumannii On Vanco and cefepime IV day #6 case discussed with ID recommended to discharge to oral Bactrim to complete 3 to 4 weeks course OK for heel weightbearing if tolerated as per ortho follow up with ortho Dr. Gauthier in 1 week Monitor renal function while on bactrim Hgb stable Continue PT/OT (2) PAD (peripheral artery disease): (3) History of femoropopliteal bypass: Was admitted for occluded femoropopliteal bypass of left lower extremity in July and is s/p bypass revision Arterial duplex showed redemonstration of the occluded left femoral-tibial bypass graft. redemonstration of the occluded left superficial femoral artery. INR 2.6 yesterday Continue Coumadin home dose Monitor PT/INR Follows with Dr. Hussein outpatient (4) CAD (coronary artery disease): History of recent inferior wall STEMI s/p stent to RCA No chest pain currently Continue Plavix and statin (5) Systolic HF (heart failure): Recent echo performed on August 07 in setting of acute inferior wall STEMI EF of 40-45% with mildly reduced LV systolic function and akinesis of the proximal and mid inferioposterior badillo Asymptomatic (6) Alcohol abuse: Drinking 1 bottle of bourbon every 2 days at home, per daughter No signs of alcohol withdrawn Continue alcohol withdrawal protocol while inpatient Continue thiamine, folic acid and multivitamin (7) Hypertension: Not on any BP med Continue monitor BP (8) Tobacco use disorder: Counseling on smoking cessation (9) Hyperlipidemia: Continue statin (10) Peripheral neuropathy: Continue gabapentin Code status: FULL CODE Disposition Discharge home with home health today Total Time Total Time Spent Total Time Spent (In Minutes): 35 minutes Total Time Includes: Examination of the Patient, Discharge Planning, Medication Reconciliation, Communication With Other Providers and Other Discharge Plan Discharge Items Patient Disposition: Home - Home Health Services Reason For Visit: OSTEOMYELITIS,R FOOT Discharge Diagnosis: Osteomyelitis, L Toe Gangrene, S/P day Left Third Toe Amputation, PAD Discharge Goals: Decrease discomfort, Improve disease control, Improve function and Increase independence Activity: As commented below Weightbearing: Left partial Weightbearing Comment: Heel weightbearing only Non-emergency contact: Primary Care Provider and Surgeon Call non-emergency contact if: you have any medication questions, your temperature is above 101, your wound has increased redness and your wound has increased drainage Follow-up/Referrals: Stu Gauthier DO [Surgeon] - (Follow up in 1 week for wound check.) Diet: Heart Healthy Add Provider Instructions: Please call to make a follow up appointment with your primary care provider at [facility] within 1 week Call to schedule follow up appointment with orthopedic Dr. Soria in 1 week Complete course of antibiotic with Bactrim Your physician will monitor your kidney function while on Bactrim Continue monitor your PT/INR for your coumadin Continue physical and occupation therapy Heel weightbearing as tolerated Fall precaution ACTIVITY RECOMMENDATIONS: Limitations: Heel weight bearing only if able to tolerate. SPECIAL CARE INSTRUCTIONS: * Some drainage onto the dressing is normal and is no cause for alarm. * Some swelling is natural especially after walking. * When resting, keep your foot elevated above the level of your heart. * Call [facility] if you notice: -Increased drainage -Fever over 101 degrees F -Severe constant pain BANDAGE: * Leave bandage/cast in place unless otherwise directed. * Keep bandage/cast dry at all times. PIN CARE: * Leave pins alone. * If pins come loose or fall out, notify physician. FOLLOW UP VISIT WITH DR. GAUTHIER If appointment is not already scheduled: Please call [facility] after you get home today to schedule a follow-up appointment for [address] Gauthier at . Prescriptions: New sulfamethoxazole-trimethoprim [Bactrim DS] 800-160 mg tablet 1 tab PO Q12H 21 Days Qty: 42 RF: 0 Continue atorvastatin 80 mg tablet 80 mg PO DAILY RF: 0 cyanocobalamin (vitamin B-12) [Vitamin B-12] 1,000 mcg Tablet 1,000 mcg PO DAILY RF: 0 ferrous sulfate 325 mg (65 mg iron) Tablet 325 mg PO DAILY RF: 0 ranitidine HCl 150 mg tablet 150 mg PO DAILY RF: 0 warfarin 5 mg tablet 5 mg PO Q OTHER DAY RF: 0 folic acid 1 mg Tablet 1 mg PO DAILY RF: 0 gabapentin 100 mg capsule 100 mg PO TID PRN (Reason: Pain) RF: 0 thiamine HCl (vitamin B1) 50 mg Tablet 50 mg PO DAILY RF: 0 calcium carbonate-vitamin D3 [Os-Lowell 500 + D3] 500 mg(1,250mg) -200 unit Tablet 1 tab PO DAILY RF: 0 magnesium oxide 400 mg magnesium Tablet 400 mg PO DAILY RF: 0 multivitamin [Multiple Vitamins] Tablet 1 tab PO DAILY RF: 0 warfarin [Coumadin] 5 mg tablet 7.5 mg PO Q OTHER DAY RF: 0 Discontinued clindamycin HCl [Cleocin HCl] 300 mg capsule 300 mg PO Q6 RF: 0 Visit Report Forms: My [facility] Portal Stand-Alone Forms: Medications to Prevent Stroke, Medication Instructions, [facility] Discharge Orders: Discharge Order (Routine); Ordered 10/03/18 Ordered By: Raysa Jain Admission Data Admit Date/Time: 09/28/18 20:29 Attending Provider: Raysa Jain Admit Provider: Hugo Ramsay Primary Care Provider: PCP,NO Other Providers: Stu Gauthier ; Td Fuentes ; Amna Gao ; Abhijeet Hussein ; Hugo Ramsay Service: Surgical Services Other Interventions: Discharge Summary Assessment (RN) Last Done: 10/03/18 16:25 DC Date/Time DO NOT enter until pt leaves facility: 10/03/18 18:08
[2018-11-06] MEDS ORDERED: NON-FORMULARY MEDICATION (Doxycycline Monohydrate [Doxycycline Monohydrate] 100 MG) PO SCH (21:00)
[2018-11-06] MEDS ORDERED: DOCUSATE SODIUM 100 MG CAP PO SCH (21:00)
[2018-11-07] MEDS ORDERED: MAGNESIUM OXIDE 400 MG PO SCH (09:00)
[2018-11-07] MEDS ORDERED: CALCIUM CARBONATE VITAMIN D3 PO SCH (09:00)
[2018-11-07] MEDS ORDERED: CLOPIDOGREL BISULFATE 75 MG TAB PO SCH (09:00)
[2018-11-07] MEDS ORDERED: FAMOTIDINE 20 MG TAB PO SCH (09:00)
[2018-11-07] MEDS ORDERED: FERROUS SULFATE 325 MG TAB PO SCH (09:00)
[2018-11-07] MEDS ORDERED: NON-FORMULARY MEDICATION (Cyanocobalamin (Vitamin B-12) [Vitamin B-12] 1,000 MCG) PO SCH (09:00)
== END 2018-10-03 18:08 | disposition home health service (06) | DRG 504 ==
LOC: ED 17:08 → SUPCPDRO 20:29 → SUATTDRO 20:29 → 3N 20:29
DX: E87.6 Hypokalemia; I50.22 Chronic systolic (congestive) heart failure; M86.9 Osteomyelitis, unspecified; F17.210 Nicotine dependence, cigarettes, uncomplicated; J44.9 Chronic obstructive pulmonary disease, unspecified; I25.2 Old myocardial infarction; Z83.3 Family history of diabetes mellitus; Z79.01 Long term (current) use of anticoagulants; D64.9 Anemia, unspecified; I25.10 Atherosclerotic heart disease of native coronary artery without angina pectoris; I77.9 Disorder of arteries and arterioles, unspecified; I73.9 Peripheral vascular disease, unspecified; F03.90 Unspecified dementia, unspecified severity, without behavioral disturbance, psychotic disturbance, mood disturbance, and anxiety; Z89.411 Acquired absence of right great toe; E78.5 Hyperlipidemia, unspecified; Z89.412 Acquired absence of left great toe; F10.10 Alcohol abuse, uncomplicated; G62.9 Polyneuropathy, unspecified; E46 Unspecified protein-calorie malnutrition; Z86.718 Personal history of other venous thrombosis and embolism; Z82.49 Family history of ischemic heart disease and other diseases of the circulatory system; F32.9 Major depressive disorder, single episode, unspecified

== ENCOUNTER 2018-10-26 13:43 | Inpatient (IN) ==
[2018-10-26] MEDS ORDERED: CLINDAMYCIN 900 MG in DEXTROSE 5% 100 ML IV ONE (14:26)
[2018-10-26 15:06] LABS: Basophils # (auto) 0.03 K/uL (0-0.2); Basophils % (auto) 0.5 %; Eosinophils # (auto) 0.24 K/uL (0-0.5); Eosinophils % (auto) 4.1 %; Hematocrit (blood only) 37.2 % (42-52); Immature Granulocytes # (auto) 0.03 K/uL (0.00-0.02); Immature Granulocytes % (auto) 0.5 %; Lymphocytes # (auto) 1.07 K/uL (1.2-3.4); Lymphocytes % (auto) 18.1 %; Mean Corpuscular Hgb Conc 34.9 g/dL (32-36); Mean Corpuscular Volume 89.4 fL (80-100); Mean Platelet Volume 9.3 fL (7.4-10.4); Monocytes # (auto) 0.52 K/uL (0.11-0.59); Monocytes % (auto) 8.8 %; Neutrophils # (auto) 4.03 K/uL (1.4-6.5); Platelet Count 256 K/uL (130-400); RDW Coefficient of Variation 16.8 % (11.5-14.5); RDW Standard Deviation 55.5 fL (36.4-46.3); Red Blood Count 4.16 M/uL (4.7-6.1); White Blood Count 5.92 K/uL (4.8-10.8)
--- NOTE | 2018-10-26 15:17 | XRay Report ---
XR foot LT min 3V routine CLINICAL HISTORY: 73 years-old Male presenting with left foot pain, r/o osteo. TECHNIQUE: Frontal, oblique, and lateral views of the left that working. COMPARISON: 09/29/2018. FINDINGS: There has been interval amputation of the third toe with redemonstration of amputation of the first a nd second toe. A portion of the base of the proximal phalanx of the first toe remains. Soft tissue ir regularity at the first interweb space at the amputation sites may suggest an open wound. No osseous dissolution allowing for osteopenia. No fracture or malalignment. No gross evidence of soft tissue em physema. Surgical clips again noted along the medial mid foot and a surgical clip in the medial lower leg. Atherosclerosis evident. IMPRESSION: 1. Allowing for osteopenia, no radiographic evidence of osteomyelitis. If there is continuing clinic al concern, noncontrast MR would be recommended. 2. Interval amputation of the third toe with redemonstration of first and second toe amputations. Electronically signed by: Bobby Lazar M.D. 10/26/2018 3:16 PM
[2018-10-26 15:20] LABS: Prothrombin Time 68.8 Seconds (9.0-12.0)
[2018-10-26 15:22] LABS: C Reactive Protein 1.12 mg/dl (0-0.29); Calcium 8.5 mg/dl (8.5-10.1); Creatinine Clr Calc Pharmacy 43.7 ml/min; Est GFR (African American) 64.4; Est GFR (Non-African American) 55.5; Potassium 3.7 mmol/L (3.5-5.1)
[2018-10-26 15:25] LABS: INR 7.6 (0.9-1.1)
--- NOTE | 2018-10-26 16:28 | Emergency Department Note ---
Entered by Rosa M Prieto acting as a scribe for Berny Maloney DO History of Present Illness General Chief complaint: Infection Stated complaint: INFECTION IN LEFT FOOT Time Seen by Provider: 10/26/18 14:06 Source: patient and family History of Present Illness Onset (ago): week(s) 1 Location: foot (Left) Radiation: extremity (Left foot) Severity: similar to prior episodes Pain Consistency: + other (Persistent) Maximum Pain Intensity: 5 Quality: + other (Infection) Exacerbated By: + movement Associated symptoms: + denies other symptoms Treatments prior to arrival: none The patient is a 73 year old male who presents to the Emergency Room with complaints of persistent infection starting 1 week ago. The patient reports that he has an infection in his left foot. He notes that movement of his left foot worsens his left foot pain. He reports that he saw Dr. Donis Ruddy [place] PCP 1 week ago. He states that he received a call earlier today from Dr. Donis who told him that he needed to come to the ED to receive IV antibiotics. He notes that he has had toes from his left foot removed and that this kind of infection has happened before. The patient denies all other symptoms. He adds that he does not want to stay in the hospital. Home Medications Home Medications Medication Instructions Recorded Confirmed Type atorvastatin 80 mg PO DAILY 07/31/18 10/09/18 History calcium carbonate-vitamin D3 1 tab PO DAILY 07/31/18 10/09/18 History [Os-Lowell 500 + D3] cyanocobalamin (vitamin B-12) 1,000 mcg PO DAILY 07/31/18 10/09/18 History [Vitamin B-12] ferrous sulfate 325 mg PO DAILY 07/31/18 10/09/18 History folic acid 1 mg PO DAILY 07/31/18 10/09/18 History gabapentin 100 mg PO TID PRN 07/31/18 10/09/18 History magnesium oxide 400 mg PO DAILY 07/31/18 10/09/18 History ranitidine HCl 150 mg PO DAILY 07/31/18 10/09/18 History thiamine HCl (vitamin B1) 50 mg PO DAILY 07/31/18 10/09/18 History warfarin 5 mg PO Q OTHER DAY 07/31/18 10/09/18 History multivitamin [Multiple Vitamins] 1 tab PO DAILY 08/07/18 10/09/18 History warfarin [Coumadin] 7.5 mg PO Q OTHER DAY 09/28/18 10/09/18 History doxycycline monohydrate 100 mg PO BID #20 cap 10/26/18 Rx Allergies Allergy/AdvReac Type Severity Reaction Status Date / Time No Known Allergies Allergy Verified 10/09/18 05:54 Past Med/Surg History Medical History Systolic HF (heart failure) (Chronic) Alcohol abuse (Chronic) 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 Depression (Chronic) Dementia (Chronic) PVD (peripheral vascular disease) STEMI (ST elevation myocardial infarction) Jul 2018, s/p ROBBI placement to RCA. Surgical History Status post amputation of left great toe (Chronic) Status post amputation of right great toe (Chronic) Nov 2017. LMA #4. no issues. History of femoropopliteal bypass (Resolved) LLE thrombectomy and bypass revision performed in Jul 2018 Hx of CABG (Chronic) S/P coronary artery stent placement (Chronic) RCA stent placed on 08/07/18 History of carpal tunnel surgery (Chronic) Family History Other Diabetes Heart disease Social History marital status: Single Current Living Situation: Alone current occupational status: retired Feels Safe at Home: Yes Smoking Status: Current every day smoker Tobacco Type: cigarettes Cigarettes per Day: 1 pack per day for Hx Alcohol Use: Yes Alcohol type: hard liquor Alcohol Intake Frequency: 3 or more drinks per day Alcohol Intake Frequency Comment: occasional Hx Substance Use: No Beliefs That Will Affect Care: None Preferred Language: Mauritian Review of Systems See HPI for pertinent positives & negatives. and A total of 10 systems reviewed and were otherwise negative Physical Exam Vital Signs Vital Signs - 24 hr 10/26/18 13:48 10/26/18 14:49 Temperature 36.8 C 36.5 C Temperature Source Oral Oral Sepsis Recent Fever Within 48 Hours No Sepsis Action Taken by Nursing No Action Required Pulse Rate 99 H Pulse Rate [Right Finger] 52 L Respiratory Rate 18 18 Respiratory Depth Normal Normal Blood Pressure 113/72 Blood Pressure [Right Arm] 150/71 H Blood Pressure Mean 85 Blood Pressure Mean [Right Arm] 97 Blood Pressure Position Sitting Pulse Oximetry 99 98 Oxygen Delivery Method Room Air Room Air CONSTITUTIONAL/VITAL SIGNS: Reviewed / noted above. GENERAL: Non-toxic in appearance. INTEGUMENTARY: Warm, dry, and [place]. HEAD: Normocephalic. EYES: without scleral icterus or trauma. ENT/OROPHARYNX: clear and moist. LYMPHADENOPATHY/NECK: Is supple without lymphadenopathy or meningismus. RESPIRATORY: Lungs clear and equal. CARDIOVASCULAR: Regular rate and rhythm. GI/ABDOMEN: Soft and nontender. No organomegaly or pulsatile mass. No rebound or guarding. Normal bowel sounds. EXTREMITIES: Warm and well perfused. Left foot reveals toes 1, 2 & 3 are missing /amputated. There is erythema noted in the distal aspect of the foot circumferentially, without obvious drainage. Wound at the amputation site of toes 1 and 2 reveals a small eschar and delayed healing. No red streaks up the left leg. BACK: No CVA tenderness. NEUROLOGICAL: Intact without focal deficits. PSYCHIATRIC: normal affect. MUSCULOSKELETAL: Normally developed with good muscle tone. Course 1407: Past medical records reviewed. The patient was evaluated in room C7, and a complete history and physical examination were performed. 1432: I reviewed the patient's case with Dr. Bell - PCP at this time. 1629: Upon reevaluation, I discussed codeyzoraida's findings with him. He verbalized agreement of the treatment plan. The patient was discharged home. Administered Medications Discontinued Medications Clindamycin Phosphate 900 mg/ (Dextrose) 106 mls @ 100 mls/hr IV ONE ONE Stop: 10/26/18 15:29 Last Infusion: 10/26/18 15:42 Dose: 0 mls/hr Admin: 10/26/18 14:47 Dose: 100 mls/hr Medical Decision Making Differential Diagnosis Differential diagnosis: Etiologies such as cellulitis, abscess, osteomyelitis, MRSA infection, DVT, necrotizing fasciitis, dermatitis, drug eruption, as well as others were entertained. Medical Records Attestation: I reviewed the patient's medical records. Home Medications Current Medication List: was personally reviewed by me Laboratory Data Attestation: I reviewed the patient's lab results. Result diagrams: 10/26/18 14:51 10/26/18 14:51 Lab Results 10/26/18 10/26/18 10/26/18 Range/Units 14:50 14:50 14:51 WBC 5.92 (4.8-10.8) K/uL RBC 4.16 L (4.7-6.1) M/uL Hgb 13.0 L (14.0-18.0) g/dL Hct 37.2 L (42-52) % MCV 89.4 (80-100) fL MCH 31.3 (25-34) pg MCHC 34.9 (32-36) g/dL RDW Std Deviation 55.5 H (36.4-46.3) fL RDW Coeff of Xiao 16.8 H (11.5-14.5) % Plt Count 256 (130-400) K/uL MPV 9.3 (7.4-10.4) fL Immature Gran % (Auto) 0.5 % Neut % (Auto) 68.0 % Lymph % (Auto) 18.1 % [place] % (Auto) 8.8 % Eos % (Auto) 4.1 % Baso % (Auto) 0.5 % Immature Gran # (Auto) 0.03 H (0.00-0.02) K/uL Neut # (Auto) 4.03 (1.4-6.5) K/uL Lymph # (Auto) 1.07 L (1.2-3.4) K/uL [place] # (Auto) 0.52 (0.11-0.59) K/uL Eos # (Auto) 0.24 (0-0.5) K/uL Baso # (Auto) 0.03 (0-0.2) K/uL ESR 30 H (0-14) mm/hr PT 68.8 H (9.0-12.0) Seconds INR 7.6 H* (0.9-1.1) Sodium (136-145) mmol/L Potassium (3.5-5.1) mmol/L Chloride (98-107) mmol/L Carbon Dioxide (21-32) mmol/L Anion Gap (3-11) BUN (7-18) mg/dl Creatinine (0.6-1.4) mg/dl Est Cr Clr Drug Dosing ml/min Est GFR ( Amer) Est GFR (Non-Af Amer) BUN/Creatinine Ratio (10-20) Glucose (70-99) mg/dl Calcium (8.5-10.1) mg/dl C-Reactive Protein (0-0.29) mg/dl 10/26/18 Range/Units 14:51 WBC (4.8-10.8) K/uL RBC (4.7-6.1) M/uL Hgb (14.0-18.0) g/dL Hct (42-52) % MCV (80-100) fL MCH (25-34) pg MCHC (32-36) g/dL RDW Std Deviation (36.4-46.3) fL RDW Coeff of Xiao (11.5-14.5) % Plt Count (130-400) K/uL MPV (7.4-10.4) fL Immature Gran % (Auto) % Neut % (Auto) % Lymph % (Auto) % [place] % (Auto) % Eos % (Auto) % Baso % (Auto) % Immature Gran # (Auto) (0.00-0.02) K/uL Neut # (Auto) (1.4-6.5) K/uL Lymph # (Auto) (1.2-3.4) K/uL [place] # (Auto) (0.11-0.59) K/uL Eos # (Auto) (0-0.5) K/uL Baso # (Auto) (0-0.2) K/uL ESR (0-14) mm/hr PT (9.0-12.0) Seconds INR (0.9-1.1) Sodium 129 L (136-145) mmol/L Potassium 3.7 (3.5-5.1) mmol/L Chloride 97 L (98-107) mmol/L Carbon Dioxide 28 (21-32) mmol/L Anion Gap 4.0 (3-11) BUN 8 (7-18) mg/dl Creatinine 1.28 (0.6-1.4) mg/dl Est Cr Clr Drug Dosing 43.7 ml/min Est GFR ( Amer) 64.4 Est GFR (Non-Af Amer) 55.5 BUN/Creatinine Ratio 6.0 L (10-20) Glucose 86 (70-99) mg/dl Calcium 8.5 (8.5-10.1) mg/dl C-Reactive Protein 1.12 H (0-0.29) mg/dl Imaging Data Radiologist's Impression: Radiology results as stated below per my review and the radiologist's interpretation: XR foot LT min 3V routine CLINICAL HISTORY: 73 years-old Male presenting with left foot pain, r/o osteo. TECHNIQUE: Frontal, oblique, and lateral views of the left that working. COMPARISON: 09/29/2018. FINDINGS: There has been interval amputation of the third toe with redemonstration of amputation of the first and second toe. A portion of the base of the proximal phalanx of the first toe remains. Soft tissue irregularity at the first interweb space at the amputation sites may suggest an open wound. No osseous dissolution allowing for osteopenia. No fracture or malalignment. No gross evidence of soft tissue emphysema. Surgical clips again noted along the medial mid foot and a surgical clip in the medial lower leg. Atherosclerosis evident. IMPRESSION: 1. Allowing for osteopenia, no radiographic evidence of osteomyelitis. If there is continuing clinical concern, noncontrast MR would be recommended. 2. Interval amputation of the third toe with redemonstration of first and second toe amputations. Electronically signed by: Bobby Lazar M.D. 10/26/2018 3:16 PM Blood Pressure Blood Pressure Findings: Elevated blood pressure Blood Pressure Disposition: Referred to patients primary care provider [facility] Narrative This is a 73-year-old male who presents to the ED with a chief complaint of left foot infection. The patient states that he was called to come here for IV antibiotics. The patient has history of vascular disease. He has had several toes amputated from his left foot. Specifically toes 1, 2 and 3 have been amputated. I spoke with the patient's doctor, Dr. Donis from [facility]. The patient's doctor states that he is unsure if he has been taking his clindamycin. The patient did get the liquid clindamycin filled, however. The patient is on Coumadin for history of DVT and PE. The patient has had an elevated INR recently and his PCP states that he is discontinuing this medication and is going to start him on Xarelto at some point. His INR today is 7.6. CBC is unremarkable. Sodium was 129. This appears to be chronic. X-ray of the foot did not reveal osteomyelitis. The patient's exam as noted above. He was given an IV dose of clindamycin. He will be started on doxycycline p.o. The patient has no desire to stay in the hospital and wants to be discharged. I did recommend that he stay in the hospital for IV antibiotics to ensure improvement of the infection as it may have worsened while on clindamycin. He declines this and does not want to stay. He was told to follow-up with his PCP this week for recheck. Impression & Plan Cellulitis of foot Discharge Plan Visit Data Chief Complaint: Infection Stated Complaint: INFECTION IN LEFT FOOT ED Provider: Berny Maloney Discharge Problem: Cellulitis of foot Patient Disposition: Home - Self-Care Condition: Good Discharge Instructions Krames/Other Patient Handouts: Cellulitis Dc Activity Restrictions/Additional Instructions: Doxycycline as prescribed. Stop taking your Coumadin. Follow-up with your doctor in 1-2 days for recheck. Return for worsening or new concerns. Interventions: ED Discharge Assessment Last Done: 10/26/18 16:30 Forms Stand Alone Forms: My [facility], Important Visit Information Prescriptions Prescriptions: New doxycycline monohydrate 100 mg capsule 100 mg PO BID Qty: 20 RF: 0 No Action atorvastatin 80 mg tablet 80 mg PO DAILY RF: 0 cyanocobalamin (vitamin B-12) [Vitamin B-12] 1,000 mcg Tablet 1,000 mcg PO DAILY RF: 0 ferrous sulfate 325 mg (65 mg iron) Tablet 325 mg PO DAILY RF: 0 ranitidine HCl 150 mg tablet 150 mg PO DAILY RF: 0 warfarin 5 mg tablet 5 mg PO Q OTHER DAY RF: 0 folic acid 1 mg Tablet 1 mg PO DAILY RF: 0 gabapentin 100 mg capsule 100 mg PO TID PRN (Reason: Pain) RF: 0 thiamine HCl (vitamin B1) 50 mg Tablet 50 mg PO DAILY RF: 0 calcium carbonate-vitamin D3 [Os-Lowell 500 + D3] 500 mg(1,250mg) -200 unit Tablet 1 tab PO DAILY RF: 0 magnesium oxide 400 mg magnesium Tablet 400 mg PO DAILY RF: 0 multivitamin [Multiple Vitamins] Tablet 1 tab PO DAILY RF: 0 warfarin [Coumadin] 5 mg tablet 7.5 mg PO Q OTHER DAY RF: 0 Referrals Referrals: PCP,NO [Primary Care Provider] - The scribe's documentation has been prepared under my direction and personally reviewed by me in its entirety. I confirm that the note above accurately reflects all work, treatment, procedures, and medical decision making performed by me.
[2018-10-26] MEDS ORDERED: VANCOMYCIN CONSULT ACTIVE PRN ×2 (17:17→20:25)
[2018-10-26] MEDS ORDERED: VANCOMYCIN HCL 1,250 MG in SODIUM CHLORIDE 0.9% 500 ML IV ONE (17:17)
--- NOTE | 2018-10-26 19:32 | History & Physical Report ---
Date of Service October 26, 2018 Assessment & Plan (1) Cellulitis of foot: Cellulitis / Peripheral artery disease / History of Thromboembolism of the lower extremitye -73-year-old male with PMH of PAD s/p bilateral femoropopliteal bypass with LLE thrombectomy and revision of bypass in Jul 2018, last seen at [facility] in September 2018 during which patient had left 3rd toe amputation on 09/30/2018 because of left third toe gangrene/osteomyelitis. 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 -give thiamine and folic acid Peripheral neuropathy: Continue gabapentin CAD (coronary artery disease): History of recent inferior wall STEMI s/p stent to RCA Continue Plavix and statin chronic Systolic HF (heart failure) with decompensation Recent echo performed on August 07 in setting of acute inferior wall STEMI EF of 40-45% with mildly reduced LV systolic function and akinesis of the proximal and mid inferioposterior [place]illo Asymptomatic will need case management and to reach out to patient's daughter in law to discuss course of care on this presentation History of Present Illness Primary Care Provider: ALEXANDRA SMYTH This is a 73-year-old male with PMH of PAD s/p bilateral femoropopliteal bypass with LLE thrombectomy and revision of bypass in Jul 2018, last seen at [facility] in September 2018 during which patient had left 3rd toe amputation on 09/30/2018 because of left third toe gangrene/osteomyelitis. As per the history of the Emergency department, patient was brought in by his daughter Conchita and son in law because there was concern that patient's left foot stump was getting worse with erythema and upon advice of their family medical doctor. Patient reportedly had been on prescribed outpatient clindamycin for 1 week but it was unclear whether patient was taking the medications as instructed. 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 He denies fevers, vomiting, abdominal discomfort, chest pain or shortness of breath. He reports that his daughter Conchita helps him with medications and that he lives by himself and he has home health aide Family history: patient cannot tell Allergy history: patient cannot tell Allergies Allergy/AdvReac Type Severity Reaction Status Date / Time No Known Allergies Allergy Verified 10/26/18 19:07 Home Medications Home Medications Medication Instructions Recorded Confirmed Type atorvastatin 80 mg PO DAILY 07/31/18 10/26/18 History calcium carbonate-vitamin D3 1 tab PO DAILY 07/31/18 10/26/18 History [Os-Lowell 500 + D3] cyanocobalamin (vitamin B-12) 1,000 mcg PO DAILY 07/31/18 10/26/18 History [Vitamin B-12] ferrous sulfate 325 mg PO DAILY 07/31/18 10/26/18 History folic acid 1 mg PO DAILY 07/31/18 10/26/18 History gabapentin 100 mg PO TID PRN 07/31/18 10/26/18 History magnesium oxide 400 mg PO DAILY 07/31/18 10/26/18 History ranitidine HCl 150 mg PO DAILY 07/31/18 10/26/18 History thiamine HCl (vitamin B1) 50 mg PO DAILY 07/31/18 10/26/18 History warfarin 5 mg PO DIRECTED 07/31/18 10/26/18 History multivitamin [Multiple Vitamins] 1 tab PO DAILY 08/07/18 10/26/18 History clindamycin palmitate HCl 20 ml PO Q6H 10/26/18 10/26/18 History [Clindamycin Pediatric] clopidogrel 75 mg PO DAILY 10/26/18 10/26/18 History doxycycline monohydrate 100 mg PO BID #20 cap 10/26/18 Rx Past Med/Surg History Medical History Systolic HF (heart failure) (Chronic) Alcohol abuse (Chronic) 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 Depression (Chronic) Dementia (Chronic) PVD (peripheral vascular disease) STEMI (ST elevation myocardial infarction) Jul 2018, s/p ROBBI placement to RCA. Surgical History Status post amputation of left great toe (Chronic) Status post amputation of right great toe (Chronic) Nov 2017. LMA #4. no issues. History of femoropopliteal bypass (Resolved) LLE thrombectomy and bypass revision performed in Jul 2018 Hx of CABG (Chronic) S/P coronary artery stent placement (Chronic) RCA stent placed on 08/07/18 History of carpal tunnel surgery (Chronic) Family History Other Diabetes Heart disease Social History marital status: Single Current Living Situation: Alone current occupational status: retired Feels Safe at Home: Yes Smoking Status: Current every day smoker Tobacco Type: cigarettes Cigarettes per Day: 1 pack per day for Hx Alcohol Use: Yes Alcohol type: hard liquor Alcohol Intake Frequency: 3 or more drinks per day Alcohol Intake Frequency Comment: occasional Hx Substance Use: No Beliefs That Will Affect Care: None Preferred Language: Kyrgyz Review of Systems All systems reviewed & are unremarkable except as noted in HPI & below Physical Exam 2 Vital Signs (Past 24 Hours): Last Vital Signs Temp 36.5 C 10/26/18 14:49 Pulse 59 L 10/26/18 18:39 Resp 18 10/26/18 18:39 BP 152/67 H 10/26/18 18:39 Pulse Ox 97 10/26/18 18:39
--- NOTE | 2018-10-26 20:43 | Pharmacy Report ---
Pharmacy Abx Initial Consult - Date of Service October 26, 2018 - Pharmacy Dosing Scope Date of Consult: 10/26/18 Consultation requested by: Dr. Rees Pharmacy is consulted to initiate vancomycin IV dosing therapy, order appropriate labs and adjust drug dose/frequency. - Subjective The patient is a 73 year old M admitted on 10/26/18 19:20. - Objective Height: 6 ft Weight: 59.2 kg Vital Signs (Past 12hrs): Vital Signs Temp Pulse Pulse Resp BP BP Pulse Ox 10/26/18 19:33 66 20 153/66 H 98 10/26/18 18:39 59 L 18 152/67 H 97 10/26/18 14:49 36.5 C 52 L 18 150/71 H 98 10/26/18 13:48 36.8 C 99 H 18 113/72 99 Lab Results (24hrs): Laboratory Tests (24 Hours) 10/26/18 10/26/18 10/26/18 14:51 14:51 14:50 WBC 5.92 Neut # (Auto) 4.03 ESR 30 H Creatinine 1.28 Est Cr Clr Drug Dosing 43.7 C-Reactive Protein 1.12 H - Risk Factors for Resistance * Hospitalization for 48 hours or more within the past 90 days * Antimicrobial use within the last 90 days clindamycin - Assessment & Plan Assessment 73 year old M admitted with worsening foot infection - this foot previously had multiple toes amputated due to gangrenous conditions. Plan vancomycin for treatment of food infection Vancomycin IV * Estimated PK Parameters: Vd 0.7 L/kg, Ryan 0.041 hr-1, t1/2 16.9 hr * Loading dose: 1250 mg (20.8 mg/kg) * Maintenance dose: 1000 mg IV (15 mg/kg) every 18 hours - start 4 hours early since less than 25 mg/kg given as load. * Goal trough level for foot infection with h/o PAD : 15 to 20 mcg/mL * Trough ordered for 10/28/18 Pharmacy will continue to follow and will adjust dose/frequency as necessary. Thank you.
[2018-10-26] MEDS: SODIUM CHLORIDE 0.9% 1000ML 1,000 ML IV SCH (21:23)
[2018-10-26] MEDS: GABAPENTIN 100 MG CAP PO SCH (21:34)
[2018-10-26] MEDS ORDERED: CONSULT PHARMACY STA (21:57)
[2018-10-26] MEDS ORDERED: CEFEPIME CONSULT ACTIVE PRN (22:21)
[2018-10-26] MEDS: CEFEPIME 2,000 MG in SYRINGE 7.5 ML IV SCH (22:33)
[2018-10-27 06:21] LABS: Basophils # (auto) 0.03 K/uL (0-0.2); Basophils % (auto) 0.7 %; Eosinophils # (auto) 0.29 K/uL (0-0.5); Eosinophils % (auto) 6.6 %; Hematocrit (blood only) 33.9 % (42-52); Hemoglobin 11.7 g/dL (14.0-18.0); Immature Granulocytes # (auto) 0.02 K/uL (0.00-0.02); Immature Granulocytes % (auto) 0.5 %; Lymphocytes # (auto) 1.08 K/uL (1.2-3.4); Lymphocytes % (auto) 24.7 %; Mean Corpuscular Hgb Conc 34.5 g/dL (32-36); Mean Corpuscular Volume 89.4 fL (80-100); Mean Platelet Volume 9.3 fL (7.4-10.4); Monocytes % (auto) 11.4 %; Neutrophils # (auto) 2.46 K/uL (1.4-6.5); Neutrophils % (auto) 56.1 %; Platelet Count 226 K/uL (130-400); RDW Coefficient of Variation 16.9 % (11.5-14.5); RDW Standard Deviation 55.1 fL (36.4-46.3); Red Blood Count 3.79 M/uL (4.7-6.1); White Blood Count 4.38 K/uL (4.8-10.8)
[2018-10-27 06:34] LABS: Prothrombin Time 66.2 Seconds (9.0-12.0)
[2018-10-27 06:42] LABS: INR 7.3 (0.9-1.1)
[2018-10-27 06:54] LABS: Albumin Level 2.2 gm/dl (3.4-5.0); BUN Creatinine Ratio 6.4 (10-20); Calcium 7.7 mg/dl (8.5-10.1); Creatinine Clr Calc Pharmacy 49.5 ml/min; Est GFR (African American) 74.8; Est GFR (Non-African American) 64.6; Potassium 3.1 mmol/L (3.5-5.1)
[2018-10-27 06:57] LABS: Albumin Globulin Ratio 0.6 (0.9-2); Bilirubin,Total 0.3 mg/dl (0.2-1); Globulin 3.5 gm/dl (2.5-4.0); Total Protein 5.7 gm/dl (6.4-8.2)
[2018-10-27] MEDS ORDERED: POTASSIUM CHLORIDE 10 MEQ TABCR PO STA (07:50)
[2018-10-27] MEDS: FERROUS SULFATE 325 MG TAB PO SCH (09:13)
[2018-10-27] MEDS: THIAMINE HCL 50 MG TABLET PO SCH (09:13)
[2018-10-27] MEDS: CLOPIDOGREL BISULFATE 75 MG TAB PO SCH (09:13)
[2018-10-27] MEDS: ATORVASTATIN 40 MG TAB PO SCH (09:13)
[2018-10-27] MEDS: GABAPENTIN 100 MG CAP PO SCH ×3 (09:13→21:18)
[2018-10-27] MEDS: FOLIC ACID 1 MG TAB PO SCH (09:13)
[2018-10-27] MEDS: SODIUM CHLORIDE 0.9% 1000ML 1,000 ML IV SCH ×2 (09:25→21:18)
[2018-10-27] MEDS: VANCOMYCIN HCL 1,000 MG in SODIUM CHLORIDE 0.9% 250 ML IV SCH (09:27)
--- NOTE | 2018-10-27 10:10 | Infectious Disease Consult ---
Date of Consultation October 27, 2018 Assessment & Plan (1) Osteomyelitis: Current imaging does not reveal any evidence of new bone infection. It is unclear if he was on Bactrim as recommended his last discharge however the patient wishes to be discharged to home. There is some concern that a previous graft may have clotted. I do not know what additional inpatient workup will be done for this. He is currently on IV antibiotics pending blood culture results. Certainly if he remains clinically stable and is ready for discharge she could be transitioned back to Bactrim therapy I would give a duration of 3- 4 weeks. He will need ongoing surgical care as an outpatient. History of Present Illness Attending Physician: Raysa Jain MD The patient was admitted to the hospital erythema the left foot. He was brought into hospital by family members. They are not present during my examination this morning. Per the chart the patient underwent an amputation of the 3rd digit on September 30 secondary to gangrene and suspected osteomyelitis. Intraoperative cultures at that time grew MSSA and Acinetobacter. He was discharged from the hospital reportedly on Bactrim however per the H&P yesterday it states that he has only been on clindamycin for 1 week. The patient states he believes that he is on an antibiotic however he does not know the name or the frequency has he states his daughter takes care of all his medical issues for him. He believes he may have seen his primary care physician since discharged from the hospital but he does not know. I did speak with the wound care nurse after his dressing changed today and his intraoperative sutures remain in place. He also does not have pulses present per care nursing. He denies any pain in the foot. He denies any bleeding or drainage. He denies any warmth or erythema. He has been afebrile since admission to the hospital his white blood cell count was 4.3 he did have an x-ray of his foot in the emergency room yesterday which was negative for osteomyelitis. His creatinine is 1.1. It is unclear if he was on Bactrim post discharge from the hospital as recommended by Infectious diseases at that hospital stay. Blood cultures were ordered in the ER and are pending at this time. The patient denies any fevers or chills. He denies any nausea vomiting diarrhea or abdominal pain. He denies any chest pain cough shortness of breath. He states that he did wish to be admitted to the hospital and he would like to be discharged to home later today. He was placed empirically on Vanco and cefepime any appears to be tolerating these antibiotics well. Allergies Allergy/AdvReac Type Severity Reaction Status Date / Time No Known Allergies Allergy Verified 10/26/18 19:07 Home Medications Home Medications Medication Instructions Recorded Confirmed Type atorvastatin 80 mg PO DAILY 07/31/18 10/26/18 History calcium carbonate-vitamin D3 1 tab PO DAILY 07/31/18 10/26/18 History [Os-[place]ell 500 + D3] cyanocobalamin (vitamin B-12) 1,000 mcg PO DAILY 07/31/18 10/26/18 History [Vitamin B-12] ferrous sulfate 325 mg PO DAILY 07/31/18 10/26/18 History folic acid 1 mg PO DAILY 07/31/18 10/26/18 History gabapentin 100 mg PO TID PRN 07/31/18 10/26/18 History magnesium oxide 400 mg PO DAILY 07/31/18 10/26/18 History ranitidine HCl 150 mg PO DAILY 07/31/18 10/26/18 History thiamine HCl (vitamin B1) 50 mg PO DAILY 07/31/18 10/26/18 History warfarin 5 mg PO DIRECTED 07/31/18 10/26/18 History multivitamin [Multiple Vitamins] 1 tab PO DAILY 08/07/18 10/26/18 History clindamycin palmitate HCl 20 ml PO Q6H 10/26/18 10/26/18 History [Clindamycin Pediatric] clopidogrel 75 mg PO DAILY 10/26/18 10/26/18 History doxycycline monohydrate 100 mg PO BID #20 cap 10/26/18 Rx Patient History Medical History Systolic HF (heart failure) (Chronic) Alcohol abuse (Chronic) 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 Depression (Chronic) Dementia (Chronic) PVD (peripheral vascular disease) STEMI (ST elevation myocardial infarction) Jul 2018, s/p ROBBI placement to RCA. Surgical History Status post amputation of left great toe (Chronic) Status post amputation of right great toe (Chronic) Nov 2017. LMA #4. no issues. History of femoropopliteal bypass (Resolved) LLE thrombectomy and bypass revision performed in Jul 2018 Hx of CABG (Chronic) S/P coronary artery stent placement (Chronic) RCA stent placed on 08/07/18 History of carpal tunnel surgery (Chronic) Family History Other Diabetes Heart disease Social History marital status: Single Current Living Situation: Alone current occupational status: retired Other Information That Helps Us Care for You: No Feels Safe at Home: Yes Safety Concerns: Feels Safe At This Time Smoking Status: Current every day smoker Tobacco Type: cigarettes Cigarettes per Day: 19 Do You Dip or Chew Tobacco: No Tobacco Cessation Education Requested by Patient: No Hx Alcohol Use: Yes Alcohol type: hard liquor Alcohol Intake Frequency: 3 or more drinks per day Alcohol Intake Frequency Comment: occasional Hx Substance Use: No Beliefs That Will Affect Care: None Preferred Language: Sinhala Communication Ability: Effective Hotel Assistant General Manager Required: No Review of Systems All remaining review of systems are reviewed are unremarkable except for as noted. Physical Exam 2 Vital Signs (Past 24 Hours): Last Vital Signs Temp 36.3 C L 10/27/18 07:44 Pulse 59 L 10/27/18 07:44 Resp 18 10/27/18 07:44 BP 96/53 L 10/27/18 07:44 Pulse Ox 98 10/27/18 07:44 Constitutional: WD/WN, vitals as above Eyes: PERRL, conjunctivae normal, anicteric sclerae ENMT: external ear and nose normal, oropharynx normal Neck: normal visual inspection Respiratory: normal respiratory effort, lungs clear to auscultation Cardiovascular: RRR, no murmur, no edema Gastrointestinal (Abdomen): normal bowel sounds, soft, nontender, no hepatosplenomegaly Musculoskeletal: no cyanosis or clubbing, extremities motor strength 5/5 Skin: no rashes, warm and dry The foot dressing is clean dry and intact. I did review photographs with wound care nursing there is no erythema noted there is no warmth tenderness induration or fluctuance there is no bleeding or drainage however there are dry eschars the postop site. Psychiatric: A+Ox3, euthymic affect _ (1) Osteomyelitis Laterality: left Osteomyelitis location: foot Osteomyelitis type: unspecified type Qualified Code(s): M86.9 - Osteomyelitis, unspecified
--- NOTE | 2018-10-27 17:45 | Hospitalist Progress Note ---
Date of Service October 27, 2018 Assessment & Plan (1) Cellulitis of foot: Cellulitis / Peripheral artery disease / History of Thromboembolism of the lower extremity Hx bilateral femoropopliteal bypass with LLE thrombectomy S/P L 3rd toe amputation on 09/30/18 due to toe gangrene/osteomyelitis. Was discharged on Bactrim DS for 21 days L foot xray showed no radiographic evidence of osteomyelitis Was starting on IV Vanco and cefepime Blood cx pending ID on board recommended to continue current abx for now If pt decides to leave, will discharge on Bactrim DS to complete 3 to 4 weeks course Continue daily wood care (2) PAD (peripheral artery disease): (3) History of femoropopliteal bypass: Was admitted for occluded femoropopliteal bypass of left lower extremity in July and is s/p bypass revision Arterial duplex done in the last admission showed redemonstration of the occluded left femoral-tibial bypass graft. redemonstration of the occluded left superficial femoral artery. Coumadin on hold due top supratherapeutic INR No pulse felt in the L foot As per vascular surgery during last admission If wound does not heal then might consider either re-arteriography for possible revascularization which may be very low yield versus a below-knee amputation Pt does not want to hear the idea of below knee amputation Vascular surgery consult Dr. Hussein (4) CAD (coronary artery disease): History of recent inferior wall STEMI s/p stent to RCA No chest pain currently Continue Plavix and statin (5) Systolic HF (heart failure): Recent echo performed on August 07 in setting of acute inferior wall STEMI EF of 40-45% with mildly reduced LV systolic function and akinesis of the proximal and mid inferioposterior badillo Asymptomatic (6) Alcohol abuse: No signs of alcohol withdrawn Continue alcohol withdrawal protocol while inpatient Continue thiamine, folic acid and multivitamin (7) Hypertension: Not on any BP med. BP stable Continue monitor BP (8) Tobacco use disorder: Counseling on smoking cessation (9) Hyperlipidemia: Continue statin (10) Peripheral neuropathy: Continue gabapentin (11) Supratherapeutic INR No signs of bleeding Hold coumadin Check PT/INR daily DVT px INR supratherapeutic CODE STATUS FULL CODE Subjective Pt was seen and examined Lying in bed with no distress Pt said that he does not have any complaint He said that his daughter brought him to the hospital He said that he does not have any idea why he is in the hospital He said that he wants to go home today He said that his daughter has been given him his meds Not sure which abx that he was given He was discharged on bactrim in the last admission but in the H&H, the admitting physician said that he was on clindamycin Denies any chest pain, palpitation, dizziness, pain and SOB Physical Exam 2 Vital Signs (Past 24 Hours): Last Vital Signs Temp 37.1 C 10/27/18 15:02 Pulse 56 L 10/27/18 15:02 Resp 21 10/27/18 15:02 BP 105/56 L 10/27/18 15:02 Pulse Ox 99 10/27/18 15:02 Physical Exam: General- No acute distress Head- atraumatic Eyes- PERRL, EOMI, ENT- oropharynx clear Neck- supple, no JVD Lungs- clear to auscultation Heart- regular rhythm; no murmur Abdomen- normal bowel sounds, soft, nontender Extremities- no calf tenderness, L foot wrapped with dressing, unable to feel pulse in L foot Neuro- alert, oriented, PERRL, EOMI Skin- warm & dry
[2018-10-27] MEDS: CEFEPIME 2,000 MG in SYRINGE 7.5 ML IV SCH (21:18)
[2018-10-28] MEDS: VANCOMYCIN HCL 1,000 MG in SODIUM CHLORIDE 0.9% 250 ML IV SCH ×2 (03:08→21:12)
[2018-10-28 06:50] LABS: Creatinine Clr Calc Pharmacy 60.9 ml/min; Est GFR (African American) 86.8; Est GFR (Non-African American) 74.9
[2018-10-28] MEDS: FERROUS SULFATE 325 MG TAB PO SCH (08:41)
[2018-10-28] MEDS: GABAPENTIN 100 MG CAP PO SCH ×3 (08:42→21:10)
[2018-10-28] MEDS: FOLIC ACID 1 MG TAB PO SCH (08:42)
[2018-10-28] MEDS: ATORVASTATIN 40 MG TAB PO SCH (08:42)
[2018-10-28] MEDS: THIAMINE HCL 50 MG TABLET PO SCH (08:43)
[2018-10-28] MEDS: CLOPIDOGREL BISULFATE 75 MG TAB PO SCH (08:43)
[2018-10-28 09:41] LABS: Prothrombin Time 28.1 Seconds (9.0-12.0)
[2018-10-28] MEDS: SODIUM CHLORIDE 0.9% 1000ML 1,000 ML IV SCH ×2 (09:48→21:12)
[2018-10-28 09:53] LABS: Hematocrit (blood only) 32.2 % (42-52); Mean Corpuscular Hgb Conc 34.2 g/dL (32-36); Mean Corpuscular Volume 90.7 fL (80-100); Mean Platelet Volume 10.6 fL (7.4-10.4); Platelet Count 226 K/uL (130-400); RDW Coefficient of Variation 16.8 % (11.5-14.5); RDW Standard Deviation 55.4 fL (36.4-46.3); Red Blood Count 3.55 M/uL (4.7-6.1); White Blood Count 5.25 K/uL (4.8-10.8)
--- NOTE | 2018-10-28 10:38 | Consultation ---
Date of Consultation October 28, 2018 Assessment & Plan (1) PAD (peripheral artery disease): Pt with known severe PAD and L foot infection. No further revascularizations are recommended at this time. Discussed possible LLE BKA with pt, he is frustrated and not agreeable. Will obtain new arterial US to eval. Can schedule BKA next week if pt becomes agreeable. Present on Admission?: Yes History of Present Illness Reason for Consultation: 73 yo m with multiple medical problems, including severe PAD s/p BL fem-distal BP and thrombectomy/revision of LLE BPG in fall 2017, CAD, ME, alcohol abuse, DVT, HTN, COPD, neuropathy, dementia, admitted for LLE foot infection, seen in consultation today. Pt well known to Dr Hussein for severe PAD and multiple revascularizations. Pt frequently noncompliant with office visits, likely due to dementia. Pt denies pain in L foot and is unable to reliably answer questions. Does states he is trying to be off of his foot as much as possible. Denies BELL, fever, chills, chest pain, SOB, abd pain, N/V, rest pain, claudication, other complaints. Unsure if he has been taking abx or how long his foot has been necrotic. Underwent LLE foot debridement by Dr Gauthier in 09/2018 d/t infection at that time. Attending Physician: Raysa Jain MD Allergies Allergy/AdvReac Type Severity Reaction Status Date / Time No Known Allergies Allergy Verified 10/26/18 19:07 Home Medications Home Medications Medication Instructions Recorded Confirmed Type atorvastatin 80 mg PO DAILY 07/31/18 10/26/18 History calcium carbonate-vitamin D3 1 tab PO DAILY 07/31/18 10/26/18 History [Os-[place] 500 + D3] cyanocobalamin (vitamin B-12) 1,000 mcg PO DAILY 07/31/18 10/26/18 History [Vitamin B-12] ferrous sulfate 325 mg PO DAILY 07/31/18 10/26/18 History folic acid 1 mg PO DAILY 07/31/18 10/26/18 History gabapentin 100 mg PO TID PRN 07/31/18 10/26/18 History magnesium oxide 400 mg PO DAILY 07/31/18 10/26/18 History ranitidine HCl 150 mg PO DAILY 07/31/18 10/26/18 History thiamine HCl (vitamin B1) 50 mg PO DAILY 07/31/18 10/26/18 History warfarin 5 mg PO DIRECTED 07/31/18 10/26/18 History multivitamin [Multiple Vitamins] 1 tab PO DAILY 08/07/18 10/26/18 History clindamycin palmitate HCl 20 ml PO Q6H 10/26/18 10/26/18 History [Clindamycin Pediatric] clopidogrel 75 mg PO DAILY 10/26/18 10/26/18 History doxycycline monohydrate 100 mg PO BID #20 cap 10/26/18 Rx Patient History Medical History Systolic HF (heart failure) (Chronic) Alcohol abuse (Chronic) 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 Depression (Chronic) Dementia (Chronic) PVD (peripheral vascular disease) STEMI (ST elevation myocardial infarction) Jul 2018, s/p ROBBI placement to RCA. Surgical History Status post amputation of left great toe (Chronic) Status post amputation of right great toe (Chronic) Nov 2017. LMA #4. no issues. History of femoropopliteal bypass (Resolved) LLE thrombectomy and bypass revision performed in Jul 2018 Hx of CABG (Chronic) S/P coronary artery stent placement (Chronic) RCA stent placed on 08/07/18 History of carpal tunnel surgery (Chronic) Family History Other Diabetes Heart disease Social History marital status: Single Current Living Situation: Alone current occupational status: retired Other Information That Helps Us Care for You: No Feels Safe at Home: Yes Safety Concerns: Feels Safe At This Time Smoking Status: Current every day smoker Tobacco Type: cigarettes Cigarettes per Day: 19 Do You Dip or Chew Tobacco: No Tobacco Cessation Education Requested by Patient: No Hx Alcohol Use: Yes Alcohol type: hard liquor Alcohol Intake Frequency: 3 or more drinks per day Alcohol Intake Frequency Comment: occasional Hx Substance Use: No Beliefs That Will Affect Care: None Communication Ability: Effective Review of Systems Constitutional: no fever, no chills, no sweats, no fatigue, no malaise and no weight loss Eyes: no blind spots and no problem reported Ear, Nose, Mouth, Throat: no hearing loss and no sore throat Respiratory: no cough, no dyspnea, no dyspnea on exertion and no hemoptysis Cardiovascular: no chest pain, no palpitations, no syncope, no claudication and no problem reported Gastrointestinal: no abdominal pain, no early satiety, no nausea, no vomiting, no cramping, no change in bowel habits, no diarrhea/loose stools and no blood in stools Musculoskeletal: no back pain, no joint pain, no swelling and no muscle weakness Integumentary: + non-healing lesions and + wounds; no rash and no erythema Neurologic: no localized weakness, no generalized weakness, no paralysis, no loss of sensation, no tingling, no numbness, no paresthesia, no seizure-like activity, no syncope, no headache(s) and no confusion Psychiatric: as per Subjective / HPI Hematologic / Lymphatic: no easy bleeding, no easy bruising, no coagulopathy, no night sweats and no unexplained weight loss Physical Exam 2 Vital Signs (Past 24 Hours): Last Vital Signs Temp 36.8 C 10/28/18 08:14 Pulse 56 L 10/28/18 08:14 Resp 18 10/28/18 08:14 BP 110/55 L 10/28/18 08:14 Pulse Ox 96 10/28/18 08:14 Constitutional: WD/WN, vitals as above well developed, well nourished, + ill appearing, + thin, + frail appearing, well groomed, + disheveled, cooperative, comfortable and + lethargic Eyes: PERRL, conjunctivae normal, anicteric sclerae EOM intact bilaterally ENMT: external ear and nose normal, oropharynx normal Ears: no hearing impairment Nose: no nasal discharge Throat: no posterior oropharynx abnormality Neck: trachea midline, no thyromegaly no tracheal deviation, no neck crepitus and neck nontender Respiratory: able to speak in complete sentences; does not use accessory muscles, no cough, not tachypneic and no audible wheezes Auscultation: lungs clear to auscultation bilaterally and + diminished lung sounds; no rhonchi and no wheezes Cardiovascular: Rate/Rhythm: regular rate; + abnormal rhythm (irregular) Heart Sounds: no gallop Vessels: normal peripheral pulses, femoral pulses present, brachial pulses present and radial pulses present; no carotid bruit and no femoral bruit Extremities: + abnormal capillary refill (L foot) and no edema LLE with faint doppler signal in BPG and peroneal/ant tib arteries. No palpable pulses LLE. Chest (Breasts): Chest: normal inspection of chest Gastrointestinal (Abdomen): normal bowel sounds, soft, nontender, no hepatosplenomegaly Inspection/Auscultation: abdomen normal to inspection and normal bowel sounds; abdomen not distended Percussion/Palpation: abdomen soft ; abdomen nontender, no guarding, abdomen not rigid and no abdominal mass Musculoskeletal: Head/Neck/Chest: normocephalic, head atraumatic and neck supple; no chest tenderness Extremities: extremities normal to inspection, strength 5/5 throughout, + amputation noted and + foot abnormality (LLE with amputation L 1st and 2nd toes. surgical area with dry gangrene noted and surrounding erythema/warmth. No drainage or foul odor. ) Left; full ROM of extremities Skin: normal turgor, + wound (see LLE fot exam), + erythema and + eschar; no rashes, no lesions and no ulcers Neurologic: moves all extremities, awake and + confused (unable to report why he is in hospital); no focal motor deficits Speech / Cognition: no expressive aphasia and no receptive aphasia Motor/Sensory: no tremor and no sensory deficit Cranial Nerves: EOM intact bilaterally, normal facial strength and tongue midline Psychiatric: Orientation: alert, oriented x 3, oriented to person, oriented to place and cooperative Apperance: appropriately dressed and appropriately groomed Affect: + depressed affect, + flat affect and + irritable affect; no anxious affect Thought Process: + thought process not goal directed, + thought process not linear or logical and + thought process not clear or coherent Cognition: recent memory grossly intact, remote memory grossly intact, attention grossly intact and language grossly intact Estimated Intelligence: average estimated intelligence Lymphatic: no lymphedema
--- NOTE | 2018-10-28 12:33 | Ultrasound Report ---
US arterial duplex LE LT CLINICAL HISTORY: Peripheral arterial disease. Femoral popliteal bypass graft. COMPARISON STUDY: Left lower extremity arterial Doppler study 09/29/2018. FINDINGS: The patient was unable to tolerate ankle brachial indices. Extensive calcified plaque withi n the left common femoral artery which demonstrates normal systolic velocities and biphasic waveforms . There is again noted complete occlusion of the left femoral-tibial graft. There again noted low kristal ocity monophasic waveforms within the left peroneal and left anterior tibial arteries. There is trace flow seen within the left posterior tibial and dorsalis pedis arteries. This has progressed compared to the prior study. Elevated peak velocity at the origin of the left deep femoral artery of 192 cm/s . This is consistent with an area of hemodynamically significant stenosis and is similar to the prior study. No change in the occluded craig left superficial femoral artery and popliteal artery. IMPRESSION: 1. Redemonstration of the occluded femorotibial graft and occluded [place] superficial femoral and pop liteal arteries. 2. Slight worsening of the trace flow within the calf vessels most pronounced within the left posteri or tibial and dorsalis pedis arteries. 3. Mild stenosis within the origin of the left deep femoral artery is again noted. Electronically signed by: Chano Dumont M.D. 10/28/2018 12:32 PM
--- NOTE | 2018-10-28 16:11 | Hospitalist Progress Note ---
Date of Service October 28, 2018 Assessment & Plan (1) Cellulitis of foot: Cellulitis / Peripheral artery disease / History of Thromboembolism of the lower extremity Hx bilateral femoropopliteal bypass with LLE thrombectomy S/P L 3rd toe amputation on 09/30/18 due to toe gangrene/osteomyelitis. Was discharged on Bactrim DS for 21 days L foot xray showed no radiographic evidence of osteomyelitis On IV Vanco and cefepime Blood cx no growth ID on board recommended to continue current abx for now If pt decides to leave, will discharge on Bactrim DS to complete 3 to 4 weeks course Continue daily wood care (2) PAD (peripheral artery disease): (3) History of femoropopliteal bypass: Was admitted for occluded femoropopliteal bypass of left lower extremity in July and is s/p bypass revision Repeat arterial duplex today showed redemonstration of the occluded femorotibial graft and occluded [place] superficial femoral and popliteal arteries. Slight worsening of the trace flow within the calf vessels most pronounced within the left posterior tibial and dorsalis pedis arteries. Will resume coumadin today, INR 3.1 today As per vascular surgery during last admission If wound does not heal then might consider either re-arteriography for possible revascularization which may be very low yield versus a below-knee amputation He does not want to have any foot or below knee amputation Vascular surgery consult Dr. Hussein (4) CAD (coronary artery disease): History of recent inferior wall STEMI s/p stent to RCA No chest pain currently Continue Plavix and statin (5) Systolic HF (heart failure): Recent echo performed on August 07 in setting of acute inferior wall STEMI EF of 40-45% with mildly reduced LV systolic function and akinesis of the proximal and mid inferioposterior badillo Asymptomatic (6) Alcohol abuse: No signs of alcohol withdrawn Continue alcohol withdrawal protocol while inpatient Continue thiamine, folic acid and multivitamin (7) Hypertension: Not on any BP med. BP stable Continue monitor BP (8) Tobacco use disorder: Counseling on smoking cessation (9) Hyperlipidemia: Continue statin (10) Peripheral neuropathy: Continue gabapentin (11) Supratherapeutic INR No signs of bleeding INR dropped to 3.1 today Will resume coumadin today If pt agrees to have below knee amputation, will hold coumadin and start on heparin drip Check PT/INR daily DVT px On coumadin INR 3.1 today CODE STATUS FULL CODE Subjective Pt was seen and examined Lying in bed with no distress Pt said that he does not have any pain Refused any foot or below knee amputation Denies any chest pain, palpitation, dizziness and SOB Physical Exam 2 Vital Signs (Past 24 Hours): Last Vital Signs Temp 36.4 C L 10/28/18 15:09 Pulse 52 L 10/28/18 15:09 Resp 18 10/28/18 15:09 BP 102/42 L 10/28/18 15:09 Pulse Ox 98 10/28/18 15:09 Physical Exam: General- No acute distress Head- atraumatic Eyes- PERRL, EOMI, ENT- oropharynx clear Neck- supple, no JVD Lungs- clear to auscultation Heart- regular rhythm; no murmur Abdomen- normal bowel sounds, soft, nontender Extremities- no calf tenderness, L foot wrapped with dressing Neuro- alert, oriented, PERRL, EOMI Skin- warm & dry
[2018-10-28] MEDS: WARFARIN SOD 3 MG TAB PO SCH (17:08)
[2018-10-28] MEDS ORDERED: VANCOMYCIN TROUGH ONE (20:30)
[2018-10-28] MEDS: CEFEPIME 2,000 MG in SYRINGE 7.5 ML IV SCH (22:16)
--- NOTE | 2018-10-28 22:24 | Pharmacy Report ---
Pharmacy Abx Dose Short Note - Date of Service October 28, 2018 - Assessment & Plan Assessment 73 year old M receiving IV Vancomycin and Cefepime for treatment of L foot cellulitis Day # 3 of antimicrobial therapy. Plan Vancomycin * Trough level of 15.2 mcg/mL (appropriately drawn) is therapeutic; of note, this is an early level not reflective of steady state. True trough at Css may be higher, but should not be supratherapeutic. * Continue dose of 1000 mg IV every 18 hours * Goal trough level for cellulitis : ~15 mcg/mL * Trough level ordered for: 10/30/18 @ 0830 to ensure Vancomycin remains within therapeutic range Pharmacy will continue to follow and will adjust dose/frequency as necessary. Thank you.
[2018-10-29 06:56] LABS: INR 2.1 (0.9-1.1); Prothrombin Time 20.6 Seconds (9.0-12.0)
[2018-10-29 07:01] LABS: BUN Creatinine Ratio 5.7 (10-20); Calcium 7.5 mg/dl (8.5-10.1); Creatinine Clr Calc Pharmacy 62.5 ml/min; Est GFR (African American) 92.3; Est GFR (Non-African American) 79.7
[2018-10-29 07:09] LABS: Potassium 3.4 mmol/L (3.5-5.1)
[2018-10-29] MEDS: FERROUS SULFATE 325 MG TAB PO SCH (07:35)
[2018-10-29] MEDS: FOLIC ACID 1 MG TAB PO SCH (07:35)
[2018-10-29] MEDS: ATORVASTATIN 40 MG TAB PO SCH (07:36)
[2018-10-29] MEDS: THIAMINE HCL 50 MG TABLET PO SCH (07:37)
[2018-10-29] MEDS: CLOPIDOGREL BISULFATE 75 MG TAB PO SCH (07:37)
[2018-10-29] MEDS: GABAPENTIN 100 MG CAP PO SCH ×3 (07:37→19:46)
[2018-10-29] MEDS ORDERED: POTASSIUM CHLORIDE 10 MEQ TABCR PO ONE (09:00)
[2018-10-29] MEDS: SODIUM CHLORIDE 0.9% 1000ML 1,000 ML IV SCH ×2 (09:13→21:30)
[2018-10-29] MEDS: CEFEPIME 2,000 MG in SYRINGE 7.5 ML IV SCH (13:03)
[2018-10-29] MEDS: VANCOMYCIN HCL 1,000 MG in SODIUM CHLORIDE 0.9% 250 ML IV SCH (15:42)
[2018-10-29] MEDS: WARFARIN SOD 3 MG TAB PO SCH (15:45)
--- NOTE | 2018-10-29 19:34 | Hospitalist Progress Note ---
Date of Service October 29, 2018 Assessment & Plan (1) Cellulitis of foot: Cellulitis / Peripheral artery disease / History of Thromboembolism of the lower extremity Hx bilateral femoropopliteal bypass with LLE thrombectomy S/P L 3rd toe amputation on 09/30/18 due to toe gangrene/osteomyelitis. Was discharged on Bactrim DS for 21 days L foot xray showed no radiographic evidence of osteomyelitis On IV Vanco and cefepime Blood cx no growth ID on board recommended to continue current abx for now If pt decides to leave, will discharge on Bactrim DS to complete 3 to 4 weeks course Continue daily wood care (2) PAD (peripheral artery disease): (3) History of femoropopliteal bypass: Was admitted for occluded femoropopliteal bypass of left lower extremity in July and is s/p bypass revision Repeat arterial duplex today showed redemonstration of the occluded femorotibial graft and occluded [place] superficial femoral and popliteal arteries. Slight worsening of the trace flow within the calf vessels most pronounced within the left posterior tibial and dorsalis pedis arteries. Will resume coumadin today, INR 3.1 today As per vascular surgery during last admission If wound does not heal then might consider either re-arteriography for possible revascularization which may be very low yield versus a below-knee amputation He does not want to have any foot or below knee amputation Vascular surgery consult Dr. Hussein Case discussed with Dr. Hussein today recommended amputation below knee Pt refused any amputation of foot or below knee amputation Will consult podiatry for possible debridment of the black necrotic area. (4) CAD (coronary artery disease): History of recent inferior wall STEMI s/p stent to RCA No chest pain currently Continue Plavix and statin (5) Systolic HF (heart failure): Recent echo performed on August 07 in setting of acute inferior wall STEMI EF of 40-45% with mildly reduced LV systolic function and akinesis of the proximal and mid inferioposterior badillo Asymptomatic (6) Alcohol abuse: No signs of alcohol withdrawn Continue alcohol withdrawal protocol while inpatient Continue thiamine, folic acid and multivitamin (7) Hypertension: Not on any BP med. BP stable Continue monitor BP (8) Tobacco use disorder: Counseling on smoking cessation (9) Hyperlipidemia: Continue statin (10) Peripheral neuropathy: Continue gabapentin (11) Supratherapeutic INR No signs of bleeding INR dropped to 2.1 today Will resume coumadin today If pt agrees to have below knee amputation, will hold coumadin and start on heparin drip Check PT/INR daily DVT px On coumadin INR 2.1 today CODE STATUS FULL CODE Subjective Pt was seen and examined Lying in bed with no distress denies any pain in the left foot Physical Exam 2 Vital Signs (Past 24 Hours): Last Vital Signs Temp 36.5 C 10/29/18 15:57 Pulse 63 10/29/18 15:57 Resp 18 10/29/18 15:57 BP 112/48 L 10/29/18 15:57 Pulse Ox 96 10/29/18 15:57 Physical Exam: General- No acute distress Head- atraumatic Eyes- PERRL, EOMI, ENT- oropharynx clear Neck- supple, no JVD Lungs- clear to auscultation Heart- regular rhythm; no murmur Abdomen- normal bowel sounds, soft, nontender Extremities- no calf tenderness, L foot with black necrotic wound area from the toes amputation Neuro- alert, oriented, PERRL, EOMI Skin- warm & dry
[2018-10-30] MEDS: CEFEPIME 2,000 MG in SYRINGE 7.5 ML IV SCH ×2 (01:36→11:56)
[2018-10-30] MEDS: ATORVASTATIN 40 MG TAB PO SCH (07:43)
[2018-10-30] MEDS: CLOPIDOGREL BISULFATE 75 MG TAB PO SCH (07:43)
[2018-10-30] MEDS: FERROUS SULFATE 325 MG TAB PO SCH (07:43)
[2018-10-30] MEDS: FOLIC ACID 1 MG TAB PO SCH (07:43)
[2018-10-30] MEDS: GABAPENTIN 100 MG CAP PO SCH ×3 (07:43→19:47)
[2018-10-30] MEDS: THIAMINE HCL 50 MG TABLET PO SCH (07:44)
[2018-10-30] MEDS ORDERED: VANCOMYCIN TROUGH ONE (08:30)
[2018-10-30 09:32] LABS: INR 1.7 (0.9-1.1); Prothrombin Time 16.6 Seconds (9.0-12.0)
[2018-10-30] MEDS: VANCOMYCIN HCL 1,000 MG in SODIUM CHLORIDE 0.9% 250 ML IV SCH (09:34)
[2018-10-30] MEDS: SODIUM CHLORIDE 0.9% 1000ML 1,000 ML IV SCH (09:35)
[2018-10-30 09:48] LABS: BUN Creatinine Ratio 5.7 (10-20); Calcium 7.7 mg/dl (8.5-10.1); Creatinine Clr Calc Pharmacy 59.4 ml/min; Est GFR (African American) 86.8; Est GFR (Non-African American) 74.9; Potassium 3.4 mmol/L (3.5-5.1)
--- NOTE | 2018-10-30 12:05 | Pharmacy Report ---
Pharmacy Abx Dose Short Note - Date of Service October 30, 2018 - Assessment & Plan Assessment 73 year old M receiving Vancomycin for treatment of L foot Cellulitis/ Osteomyelitis. Day #5 of antimicrobial therapy. Plan Vancomycin * Trough level of 16.6 mcg/mL is therapeutic and at steady-state (drawn after 4 maintenance doses). * Continue dose Vancomycin 1000 mg IV q18h. * Will recheck in around 5 days to confirm that there is no drug accumulation. Pharmacy will continue to follow and will adjust dose/frequency as necessary. Thank you.
[2018-10-30] MEDS ORDERED: POTASSIUM CHLORIDE 10 MEQ TABCR PO STA (15:25)
--- NOTE | 2018-10-30 15:50 | Hospitalist Progress Note ---
Date of Service October 30, 2018 Assessment & Plan (1) Cellulitis of foot: Cellulitis / Peripheral artery disease / History of Thromboembolism of the lower extremity Hx bilateral femoropopliteal bypass with LLE thrombectomy S/P L 3rd toe amputation on 09/30/18 due to toe gangrene/osteomyelitis. Was discharged on Bactrim DS for 21 days L foot xray showed no radiographic evidence of osteomyelitis On IV Vanco and cefepime Blood cx no growth ID on board recommended to continue current abx for now If pt decides to leave, will discharge on Bactrim DS to complete 3 to 4 weeks course Continue daily wood care (2) PAD (peripheral artery disease): (3) History of femoropopliteal bypass: Was admitted for occluded femoropopliteal bypass of left lower extremity in July and is s/p bypass revision Repeat arterial duplex today showed redemonstration of the occluded femorotibial graft and occluded [place] superficial femoral and popliteal arteries. Slight worsening of the trace flow within the calf vessels most pronounced within the left posterior tibial and dorsalis pedis arteries. Will resume coumadin today, INR 3.1 today As per vascular surgery during last admission If wound does not heal then might consider either re-arteriography for possible revascularization which may be very low yield versus a below-knee amputation He does not want to have any foot or below knee amputation Vascular surgery consult Dr. Hussein Case discussed with Dr. Hussein today recommended amputation below knee Pt refused any amputation of foot or below knee amputation Consult podiatry for possible debridment of the black necrotic area. (4) CAD (coronary artery disease): History of recent inferior wall STEMI s/p stent to RCA No chest pain currently Continue Plavix and statin (5) Systolic HF (heart failure): Recent echo performed on August 07 in setting of acute inferior wall STEMI EF of 40-45% with mildly reduced LV systolic function and akinesis of the proximal and mid inferioposterior badillo Asymptomatic (6) Alcohol abuse: No signs of alcohol withdrawn Continue alcohol withdrawal protocol while inpatient Continue thiamine, folic acid and multivitamin (7) Hypertension: Not on any BP med. BP stable Continue monitor BP (8) Tobacco use disorder: Counseling on smoking cessation (9) Hyperlipidemia: Continue statin (10) Peripheral neuropathy: Continue gabapentin (11) Supratherapeutic INR No signs of bleeding INR dropped to 1.7 today If pt agrees to have below knee amputation, will hold coumadin and start on heparin drip Increased coumadin to 4 mg daily Check PT/INR daily DVT px On coumadin INR 1.7 today CODE STATUS FULL CODE Subjective Pt was seen and examined Lying in bed comfortable watching TV Pt said that he feels fine Continue refusing any amputation below the knee Denies any chest pain palpitation, dizziness and SOB Physical Exam 2 Vital Signs (Past 24 Hours): Last Vital Signs Temp 36.4 C L 10/30/18 15:44 Pulse 61 10/30/18 15:44 Resp 20 10/30/18 15:44 BP 126/66 10/30/18 15:44 Pulse Ox 98 10/30/18 15:44 Physical Exam: General- No acute distress Head- atraumatic Eyes- PERRL, EOMI, ENT- oropharynx clear Neck- supple, no JVD Lungs- clear to auscultation Heart- regular rhythm; no murmur Abdomen- normal bowel sounds, soft, nontender Extremities- no calf tenderness, L foot with black necrotic wound area from the toes amputation wrap with dressing Neuro- alert, oriented, PERRL, EOMI Skin- warm & dry
[2018-10-30] MEDS: WARFARIN SOD 4 MG TAB PO SCH (15:57)
[2018-10-31] MEDS: CEFEPIME 2,000 MG in SYRINGE 7.5 ML IV SCH ×2 (01:27→14:36)
[2018-10-31] MEDS: VANCOMYCIN HCL 1,000 MG in SODIUM CHLORIDE 0.9% 250 ML IV SCH ×2 (03:45→20:19)
[2018-10-31 06:54] LABS: BUN Creatinine Ratio 6.3 (10-20); Calcium 7.8 mg/dl (8.5-10.1); Creatinine Clr Calc Pharmacy 66.7 ml/min; Est GFR (Non-African American) 85.4; Potassium 3.9 mmol/L (3.5-5.1)
[2018-10-31 07:15] LABS: INR 1.6 (0.9-1.1); Prothrombin Time 15.3 Seconds (9.0-12.0)
--- NOTE | 2018-10-31 08:34 | Surgery Progress Note ---
Date of Service October 31, 2018 Assessment & Plan (1) PAD (peripheral artery disease): Pt with known severe PAD and L foot infection. No further revascularizations are recommended at this time. Discussed LLE BKA with pt, he is agreeable. Will try to schedule this week and discuss with daughter, Conchita, at pt request. Subjective 73 yo m with multiple medical problems, seen in f/u today regarding vascular disease and L foot wounds. Pt denies any new complaints. Minimal pain in LLE. Arterial US redemonstrates occlusion of BPG and minimal flow to foot. Physical Exam 2 Vital Signs (Past 24 Hours): Last Vital Signs Temp 36.8 C 10/31/18 06:47 Pulse 57 L 10/31/18 06:47 Resp 18 10/31/18 06:47 BP 124/68 10/31/18 06:47 Pulse Ox 95 10/31/18 06:47 Constitutional: WD/WN, vitals as above well developed, well nourished, + ill appearing, + thin, + frail appearing, well groomed, + disheveled, cooperative and comfortable Musculoskeletal: Extremities: extremities normal to inspection, strength 5/5 throughout, + amputation noted and + foot abnormality (LLE with amputation L 1st and 2nd toes. surgical area with dry gangrene noted and surrounding erythema/warmth. No drainage or foul odor. ); full ROM of extremities Skin: normal turgor, + wound (see LLE fot exam), + erythema and + eschar; no rashes, no lesions and no ulcers Psychiatric: Orientation: alert, oriented to person, oriented to place and cooperative
[2018-10-31] MEDS: FERROUS SULFATE 325 MG TAB PO SCH (09:16)
[2018-10-31] MEDS: FOLIC ACID 1 MG TAB PO SCH (09:16)
[2018-10-31] MEDS: GABAPENTIN 100 MG CAP PO SCH ×3 (09:16→20:20)
[2018-10-31] MEDS: THIAMINE HCL 50 MG TABLET PO SCH (09:16)
[2018-10-31] MEDS: CLOPIDOGREL BISULFATE 75 MG TAB PO SCH (09:16)
[2018-10-31] MEDS: ATORVASTATIN 40 MG TAB PO SCH (09:16)
--- NOTE | 2018-10-31 09:39 | Podiatry Consultation ---
Date of Consultation October 31, 2018 Assessment & Plan (1) Cellulitis of foot: Patient is s/p fem-pop bypass which has occluded. He has failed amputation of digits with distal necrosis and necrotic stumps. His duplex arterial angiogram shows poor pedal blood flow at this time. Given his poor circulation, a debridement at this time would be futile in my opinion. I do not believe he has potential for healing. He would most likely end up with further necrosis of any debridement site. Non-surgically he could be treated with santyl however I do not believe this is a viable option because his lack of healing potential. Without further revascularization, I am recommending a below knee amputation. If vascular surgery does not feel intervention would be successful, than a primary amputation is his best option. I explained this to him in great detail this AM. Vascular surgery now states he is ammendable to primary below knee amputation. I will sign off at this point as this is the plan. Thank you for the consultation and allowing me to take part in this patient's care. (2) PAD (peripheral artery disease): (3) Status post amputation of left great toe: History of Present Illness Attending Physician: Raysa Jain MD Patient has severe PAD LLE with necrosis of amputation sites of his digits. He has no pain to the extremity at this time. He cannot recall who performed his original surgery. Cellulitis of the extremity upon admission and is on IV abx for this issue. ID is on board. Vascular surgery does not believe revascularization is possible to the extremtiy. I was consulted regarding possible debridement of necrosis. He denies any NVFC at this time. Allergies Allergy/AdvReac Type Severity Reaction Status Date / Time No Known Allergies Allergy Verified 10/26/18 19:07 Home Medications Home Medications Medication Instructions Recorded Confirmed Type atorvastatin 80 mg PO DAILY 07/31/18 10/26/18 History calcium carbonate-vitamin D3 1 tab PO DAILY 07/31/18 10/26/18 History [[place] 500 + D3] cyanocobalamin (vitamin B-12) 1,000 mcg PO DAILY 07/31/18 10/26/18 History [Vitamin B-12] ferrous sulfate 325 mg PO DAILY 07/31/18 10/26/18 History folic acid 1 mg PO DAILY 07/31/18 10/26/18 History gabapentin 100 mg PO TID PRN 07/31/18 10/26/18 History magnesium oxide 400 mg PO DAILY 07/31/18 10/26/18 History ranitidine HCl 150 mg PO DAILY 07/31/18 10/26/18 History thiamine HCl (vitamin B1) 50 mg PO DAILY 07/31/18 10/26/18 History warfarin 5 mg PO DIRECTED 07/31/18 10/26/18 History multivitamin [Multiple Vitamins] 1 tab PO DAILY 08/07/18 10/26/18 History clindamycin palmitate HCl 20 ml PO Q6H 10/26/18 10/26/18 History [Clindamycin Pediatric] clopidogrel 75 mg PO DAILY 10/26/18 10/26/18 History doxycycline monohydrate 100 mg PO BID #20 cap 10/26/18 Rx Patient History Medical History Systolic HF (heart failure) (Chronic) Alcohol abuse (Chronic) 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 Depression (Chronic) Dementia (Chronic) PVD (peripheral vascular disease) STEMI (ST elevation myocardial infarction) Jul 2018, s/p ROBBI placement to RCA. Surgical History Status post amputation of left great toe (Chronic) Status post amputation of right great toe (Chronic) Nov 2017. LMA #4. no issues. History of femoropopliteal bypass (Resolved) LLE thrombectomy and bypass revision performed in Jul 2018 Hx of CABG (Chronic) S/P coronary artery stent placement (Chronic) RCA stent placed on 08/07/18 History of carpal tunnel surgery (Chronic) Family History Other Diabetes Heart disease Social History marital status: Single Current Living Situation: Alone current occupational status: retired Other Information That Helps Us Care for You: No Feels Safe at Home: Yes Safety Concerns: Feels Safe At This Time Smoking Status: Current every day smoker Tobacco Type: cigarettes Cigarettes per Day: 19 Do You Dip or Chew Tobacco: No Tobacco Cessation Education Requested by Patient: No Hx Alcohol Use: Yes Alcohol type: hard liquor Alcohol Intake Frequency: 3 or more drinks per day Alcohol Intake Frequency Comment: occasional Hx Substance Use: No Beliefs That Will Affect Care: None Communication Ability: Effective Physical Exam 2 Vital Signs (Past 24 Hours): Last Vital Signs Temp 36.8 C 10/31/18 06:47 Pulse 57 L 10/31/18 06:47 Resp 18 10/31/18 06:47 BP 124/68 10/31/18 06:47 Pulse Ox 95 10/31/18 06:47 Physical Exam: AAOx3 in NAD, VSS Nonpalpble pedal pulses to the b/l LE SILT b/l LE The right distal foot amputation sites of the 1st 2nd and 3rd digits is necrotic with mild surrounding erythema. No calor is present. No purulence is present on exam. There is no tenderness to palpation. Results & Data Diagnostic Findings Aterial US IMPRESSION: 1. Redemonstration of the occluded left femoral-tibial bypass graft. 2. Redemonstration of the occluded left superficial femoral artery. 3. Hemodynamically significant stenosis at the origin of the deep femoral artery, which is the presumable source of collateral flow to the leg. 4. Diminished flow in the lower leg though the lower leg vessels remain patent. 5. Left calf subcutaneous chronic hematoma.
--- NOTE | 2018-10-31 10:39 | Infectious Disease Progress Nt ---
Date of Service October 31, 2018 Assessment & Plan (1) PAD (peripheral artery disease): continue abx for now, can stop 24 hours after bka. Subjective pt for bka later this week due to ongoing vascular disease, ulceration, poor wound healing. continues on emperic vanco and cefepime. afebrile. Physical Exam 2 Vital Signs (Past 24 Hours): Last Vital Signs Temp 36.8 C 10/31/18 06:47 Pulse 57 L 10/31/18 06:47 Resp 18 10/31/18 06:47 BP 124/68 10/31/18 06:47 Pulse Ox 95 10/31/18 06:47
--- NOTE | 2018-10-31 20:05 | Hospitalist Progress Note ---
Date of Service October 31, 2018 Assessment & Plan (1) Cellulitis of foot: Left foot wood with necrosis Cellulitis / Peripheral artery disease / History of Thromboembolism of the lower extremity Hx bilateral femoropopliteal bypass with LLE thrombectomy S/P L 3rd toe amputation on 09/30/18 due to toe gangrene/osteomyelitis. Was discharged on Bactrim DS for 21 days L foot xray showed no radiographic evidence of osteomyelitis On IV Vanco and cefepime Blood cx no growth ID on board recommended to continue current abx for now If pt decides to leave, will discharge on Bactrim DS to complete 3 to 4 weeks course Continue daily wood care ID recommend to stop abx 24 hr after the BKA (2) PAD (peripheral artery disease): (3) History of femoropopliteal bypass: Was admitted for occluded femoropopliteal bypass of left lower extremity in July and is s/p bypass revision Repeat arterial duplex today showed redemonstration of the occluded femorotibial graft and occluded [place] superficial femoral and popliteal arteries. Slight worsening of the trace flow within the calf vessels most pronounced within the left posterior tibial and dorsalis pedis arteries. Will resume coumadin today, INR 3.1 today As per vascular surgery during last admission If wound does not heal then might consider either re-arteriography for possible revascularization which may be very low yield versus a below-knee amputation He does not want to have any foot or below knee amputation Vascular surgery consult Dr. Hussein Case discussed with Dr. Hussein today recommended amputation below knee Pt refused any amputation of foot or below knee amputation Consult podiatry for possible debridment of the black necrotic area. 10/31 Podiatry also recommended below knee amputation given his poor circulation a debridement at this time would be futile since it will not heal Vascular surgery plan for BKA Pt would like us to discuss case with daughter Will hold coumadin due to possible surgery (4) CAD (coronary artery disease): History of recent inferior wall STEMI s/p stent to RCA No chest pain currently Continue Plavix and statin (5) Systolic HF (heart failure): Recent echo performed on August 07 in setting of acute inferior wall STEMI EF of 40-45% with mildly reduced LV systolic function and akinesis of the proximal and mid inferioposterior [place] Asymptomatic (6) Alcohol abuse: No signs of alcohol withdrawn Continue alcohol withdrawal protocol while inpatient Continue thiamine, folic acid and multivitamin (7) Hypertension: Not on any BP med. BP stable Continue monitor BP (8) Tobacco use disorder: Counseling on smoking cessation (9) Hyperlipidemia: Continue statin (10) Peripheral neuropathy: Continue gabapentin (11) Supratherapeutic INR No signs of bleeding INR dropped to 1.6 today If pt agrees to have below knee amputation, will hold coumadin and start on heparin drip Increased coumadin to 4 mg daily Check PT/INR daily 12) Hyponatremia Mostly due to poor intake Monitor BMP Will add gentle IVF DVT px On coumadin INR 1.6 today CODE STATUS FULL CODE Subjective Pt was seen and examined Lying in bed with no distress Pt said that he wants vascular surgery to speak to his daughter about the surgery He said that he did not remember to agree for the below knee amputation Denies any chest pain, palpitation, dizziness and SOB Physical Exam 2 Vital Signs (Past 24 Hours): Last Vital Signs Temp 36.3 C L 10/31/18 15:41 Pulse 56 L 10/31/18 15:41 Resp 20 10/31/18 15:41 BP 119/66 10/31/18 15:41 Pulse Ox 99 10/31/18 15:41 Physical Exam: General- No acute distress Head- atraumatic Eyes- PERRL, EOMI, ENT- oropharynx clear Neck- supple, no JVD Lungs- clear to auscultation Heart- regular rhythm; no murmur Abdomen- normal bowel sounds, soft, nontender Extremities- no calf tenderness, L foot with black necrotic wound area from the toes amputation wrap with dressing Neuro- alert, oriented, PERRL, EOMI Skin- warm & dry
[2018-11-01] MEDS: CEFEPIME 2,000 MG in SYRINGE 7.5 ML IV SCH ×2 (00:10→13:05)
--- NOTE | 2018-11-01 09:15 | Communication Note ---
Date of Service: November 01, 2018 No foot erythema at this time. Wound dry. Unless his amp sites become infected or cause severe pain will hold off on amputation at this time. Longer we can wait after his OH the less the mortality of BKA. Please call if foot worsens. We will see him in the office in two weeks for follow up Thank you very much for letting us participate in the care of this patient.
[2018-11-01] MEDS: GABAPENTIN 100 MG CAP PO SCH ×3 (09:17→20:18)
[2018-11-01] MEDS: THIAMINE HCL 50 MG TABLET PO SCH (09:17)
[2018-11-01] MEDS: FERROUS SULFATE 325 MG TAB PO SCH (09:17)
[2018-11-01] MEDS: ATORVASTATIN 40 MG TAB PO SCH (09:18)
[2018-11-01] MEDS: FOLIC ACID 1 MG TAB PO SCH (09:18)
[2018-11-01] MEDS ORDERED: ACETAMINOPHEN SOL 650 MG/20.3 ML UDC PO PRN (10:19)
[2018-11-01] MEDS ORDERED: ACETAMINOPHEN 325 MG TAB ONE (10:24)
--- NOTE | 2018-11-01 12:52 | Hospitalist Progress Note ---
Date of Service November 01, 2018 Assessment & Plan (1) Cellulitis of foot: Left foot wood with necrosis Cellulitis / Peripheral artery disease / History of Thromboembolism of the lower extremity Hx bilateral femoropopliteal bypass with LLE thrombectomy S/P L 3rd toe amputation on 09/30/18 due to toe gangrene/osteomyelitis. Was discharged on Bactrim DS for 21 days L foot xray showed no radiographic evidence of osteomyelitis On IV Vanco and cefepime Blood cx no growth ID on board recommended to continue current abx for now If pt decides to leave, will discharge on Bactrim DS to complete 3 to 4 weeks course Continue daily wood care ID recommend to stop abx 24 hr after the BKA 11/01 Will need below knee amputation of left foot Case discussed with ID Dr Gao and ALBERT to change to Bactrium suspension oral unttil 24 hr post-op Reason bactrim changed to suspension is because Pt has a hard time to swallow his pills (2) PAD (peripheral artery disease): (3) History of femoropopliteal bypass: Was admitted for occluded femoropopliteal bypass of left lower extremity in July and is s/p bypass revision Repeat arterial duplex today showed redemonstration of the occluded femorotibial graft and occluded [place] superficial femoral and popliteal arteries. Slight worsening of the trace flow within the calf vessels most pronounced within the left posterior tibial and dorsalis pedis arteries. Will resume coumadin today, INR 3.1 today As per vascular surgery during last admission If wound does not heal then might consider either re-arteriography for possible revascularization which may be very low yield versus a below-knee amputation He does not want to have any foot or below knee amputation Vascular surgery consult Dr. Hussein Case discussed with Dr. Hussein today recommended amputation below knee Pt refused any amputation of foot or below knee amputation Consult podiatry for possible debridment of the black necrotic area. 11/01 Podiatry also recommended below knee amputation given his poor circulation a debridement at this time would be futile since it will not heal Vascular surgery plan for BKA Case discussed with Dr. Chan recommneded BKA of L foot Since the erythema in the left foot improves, Vascular plan to schedule the surgery as an outpatient Longer we can wait after his [place] the less the mortality of BKA Follow up with vascular in 2 weeks If foot worsening, please call vascular surgery office Will continue plavix, aspirin and coumadin for now (4) CAD (coronary artery disease): History of recent inferior wall STEMI s/p stent to RCA No chest pain currently Continue Plavix and statin (5) Systolic HF (heart failure): Recent echo performed on August 07 in setting of acute inferior wall STEMI EF of 40-45% with mildly reduced LV systolic function and akinesis of the proximal and mid inferioposterior badillo Asymptomatic (6) Alcohol abuse: No signs of alcohol withdrawn Continue alcohol withdrawal protocol while inpatient Continue thiamine, folic acid and multivitamin (7) Hypertension: Not on any BP med. BP stable Continue monitor BP (8) Tobacco use disorder: Counseling on smoking cessation (9) Hyperlipidemia: Continue statin (10) Peripheral neuropathy: Continue gabapentin (11) Supratherapeutic INR No signs of bleeding INR dropped to 1.6 today If pt agrees to have below knee amputation, will hold coumadin and start on heparin drip Continue coumadin 4 mg daily Check PT/INR daily 12) Hyponatremia Mostly due to poor intake Monitor BMP Will add gentle IVF DVT px On coumadin INR 1.6 today CODE STATUS FULL CODE Disposition Will need possible placement Subjective Pt was seen and examined Lying in bed with no distress I called daughter after getting permission from patient I informed daughter that patient wound will not heal He will need below knee amputation of the left foot Daughter said that after patient was discharged last time, he was not able to swallow the bactrium He said that his PCP changed his antibiotic to liquid but not sure if it was the suspension form of Bactrium Daughter also said that he would like patient to transition to a skill facility for now until foot get better Daughter and patient understand that after the BKA, Pt will require more help and support Denies any chest pain, palpitation, dizziness and SOB Physical Exam 2 Vital Signs (Past 24 Hours): Last Vital Signs Temp 36.9 C 11/01/18 07:00 Pulse 67 11/01/18 07:00 Resp 16 11/01/18 07:00 BP 124/62 11/01/18 07:00 Pulse Ox 95 11/01/18 07:00 Physical Exam: General- No acute distress Head- atraumatic Eyes- PERRL, EOMI, ENT- oropharynx clear Neck- supple, no JVD Lungs- clear to auscultation Heart- regular rhythm; no murmur Abdomen- normal bowel sounds, soft, nontender Extremities- no calf tenderness, L foot with black necrotic wound area from the toes amputation wrap with dressing Neuro- alert, oriented, PERRL, EOMI Skin- warm & dry
[2018-11-01] MEDS: VANCOMYCIN HCL 1,000 MG in SODIUM CHLORIDE 0.9% 250 ML IV SCH (13:08)
[2018-11-01] MEDS ORDERED: SODIUM CHLORIDE 0.9% 1000ML 1,000 ML IV SCH (13:15)
[2018-11-01] MEDS: WARFARIN SOD 4 MG TAB PO SCH (16:17)
[2018-11-02] MEDS: CEFEPIME 2,000 MG in SYRINGE 7.5 ML IV SCH ×2 (00:24→12:32)
[2018-11-02] MEDS: CLOPIDOGREL BISULFATE 75 MG TAB PO SCH (08:23)
[2018-11-02] MEDS: THIAMINE HCL 50 MG TABLET PO SCH (08:24)
[2018-11-02] MEDS: FOLIC ACID 1 MG TAB PO SCH (08:24)
[2018-11-02] MEDS: GABAPENTIN 100 MG CAP PO SCH ×3 (08:24→19:41)
[2018-11-02] MEDS: FERROUS SULFATE 325 MG TAB PO SCH (08:24)
[2018-11-02] MEDS: VANCOMYCIN HCL 1,000 MG in SODIUM CHLORIDE 0.9% 250 ML IV SCH ×2 (08:25→09:01)
[2018-11-02 08:59] LABS: Creatinine Clr Calc Pharmacy 73.3 ml/min; Est GFR (African American) 102.9; Est GFR (Non-African American) 88.8
[2018-11-02] MEDS: ATORVASTATIN 40 MG TAB PO SCH ×2 (09:02→09:15)
[2018-11-02 15:35] LABS: INR 1.5 (0.9-1.1); Prothrombin Time 14.6 Seconds (9.0-12.0)
--- NOTE | 2018-11-02 15:53 | Pharmacy Report ---
Pharmacy Abx Dose Short Note - Date of Service November 02, 2018 - Assessment & Plan Assessment 73 year old M receiving vancomcyin and cefepime for left foot cellulitis in the setting of PAD * on day #8 of inpatient antibiotics * h/o bilateral femoropopliteal bypass with LLE thrombectomy, s/p L 3rd tod amputation on 09/30/18 due to gangrene and osteo * Left foot x-ray on admission did not show evidence of osteo * pt in need of below the knee amputation - vascular surgery recommending to hold off for now due to recent RI Plan Vancomycin * Trough level of 21.1 mcg/mL is slightly supratherapeutic * Change to 1000 mg IV every 20 hours * Goal trough level for recurrent L foot infection with recent osteo: 15 to 20 mcg/mL * Repeat trough level not ordered at this time per patient may switch to Bactrim. If vanco continued, repeat level will be ordered. Pharmacy will continue to follow and will adjust dose/frequency as necessary. Thank you.
[2018-11-02] MEDS: WARFARIN SOD 4 MG TAB PO SCH (15:54)
[2018-11-02] MEDS ORDERED: HEPARIN SOD 5,000 UNIT/0.5 ML VIAL SQ SCH (16:00)
[2018-11-02] MEDS ORDERED: WARFARIN SOD 1 MG TAB PO ONE (16:00)
[2018-11-02] MEDS: SULFAMETHOXAZOLE/TRIMETHOPRIM DS 800/160MG TAB PO SCH ×2 (16:51→23:29)
--- NOTE | 2018-11-02 18:15 | Hospitalist Progress Note ---
Date of Service November 02, 2018 Assessment & Plan (1) Cellulitis of foot: Left foot infected wound with necrosis leading to cellulitis hx of Peripheral artery disease / History of Thromboembolism of the lower extremity Hx bilateral femoropopliteal bypass with LLE thrombectomy S/P L 3rd toe amputation on 09/30/18 due to toe gangrene/osteomyelitis. Was discharged on Bactrim DS for 21 days L foot xray showed no radiographic evidence of osteomyelitis On IV Vanco and cefepime Blood cx no growth ID consulted appreciate input pt refused to have below knee amputation of left foot IV abx d/brinda started on PO Bactrim Reason bactrim changed to suspension is because Pt has a hard time to swallow his pills (2) PAD (peripheral artery disease): (3) History of femoropopliteal bypass: Was admitted for occluded femoropopliteal bypass of left lower extremity in July and is s/p bypass revision Repeat arterial duplex showed redemonstration of the occluded femorotibial graft and occluded [place] superficial femoral and popliteal arteries. Slight worsening of the trace flow within the calf vessels most pronounced within the left posterior tibial and dorsalis pedis arteries. on Coumadin As per vascular surgery during last admission If wound does not heal then might consider either re-arteriography for possible revascularization which may be very low yield versus a below-knee amputation He does not want to have any foot or below knee amputation Vascular surgery consult Dr. Jovita Hussein recommended amputation below knee Pt refused any amputation of foot or below knee amputation Podiatry consulted , appreciate input Podiatry also recommended below knee amputation given his poor circulation a debridement at this time would be futile since it will not heal Follow up with vascular in 2 weeks Abx changed to Bactrim continue plavix, aspirin and coumadin (4) CAD (coronary artery disease): History of recent inferior wall STEMI s/p stent to RCA No chest pain currently Continue Plavix and statin (5) Systolic HF (heart failure): Recent echo performed on August 07 in setting of acute inferior wall STEMI EF of 40-45% with mildly reduced LV systolic function and akinesis of the proximal and mid inferioposterior badillo Asymptomatic (6) Alcohol abuse: No signs of alcohol withdrawn Continue thiamine, folic acid and multivitamin (7) Hypertension: BP stable (8) Tobacco use disorder: Counseling on smoking cessation (9) Hyperlipidemia: Continue statin (10) Peripheral neuropathy: Continue gabapentin DVT px On coumadin Sub q lovenox for DVT prophylaxis till INR theraputic CODE STATUS FULL CODE Disposition to be determined Subjective offers no complain no fever or chills denies of any pain on left foot refuses any option for amputation /will not consent for BKA of left lower ext Physical Exam 2 Vital Signs (Past 24 Hours): Last Vital Signs Temp 36.9 C 11/02/18 15:39 Pulse 55 L 11/02/18 15:39 Resp 18 11/02/18 15:39 BP 126/66 11/02/18 15:39 Pulse Ox 97 11/02/18 15:39 Constitutional: + ill appearing and + thin; no acute distress Eyes: + anicteric sclerae ENMT: external ear and nose normal, oropharynx normal Neck: trachea midline, no thyromegaly Respiratory: normal respiratory effort, lungs clear to auscultation Cardiovascular: RRR, no murmur, no edema Gastrointestinal (Abdomen): normal bowel sounds, soft, nontender, no hepatosplenomegaly Musculoskeletal: left foot cellulitis , bandaged Neurologic: PERRL, EOMI, accommodation nl, no face palsy, no dysarthria Psychiatric: A+Ox3, euthymic affect
[2018-11-03] MEDS ORDERED: VANCOMYCIN HCL 1,000 MG in SODIUM CHLORIDE 0.9% 250 ML IV SCH (05:00)
[2018-11-03 06:43] LABS: INR 1.4 (0.9-1.1); Prothrombin Time 13.9 Seconds (9.0-12.0)
[2018-11-03] MEDS: CLOPIDOGREL BISULFATE 75 MG TAB PO SCH (08:52)
[2018-11-03] MEDS: FOLIC ACID 1 MG TAB PO SCH (08:52)
[2018-11-03] MEDS: SULFAMETHOXAZOLE/TRIMETHOPRIM DS 800/160MG TAB PO SCH (08:52)
[2018-11-03] MEDS: FERROUS SULFATE 325 MG TAB PO SCH (08:52)
[2018-11-03] MEDS: THIAMINE HCL 50 MG TABLET PO SCH (08:52)
[2018-11-03] MEDS: GABAPENTIN 100 MG CAP PO SCH (08:52)
[2018-11-03] MEDS: ATORVASTATIN 40 MG TAB PO SCH (08:52)
[2018-11-03] MEDS ORDERED: ENOXAPARIN INJ 40 MG/0.4 ML SYR SQ SCH (12:45)
--- NOTE | 2018-11-03 12:48 | Discharge Summary ---
Date of Service November 03, 2018 Admission HPI Per Admitting Provider This is a 73-year-old male with PMH of PAD s/p bilateral femoropopliteal bypass with LLE thrombectomy and revision of bypass in Jul 2018, last seen at [facility] in September 2018 during which patient had left 3rd toe amputation on 09/30/2018 because of left third toe gangrene/osteomyelitis. As per the history of the Emergency department, patient was brought in by his daughter Conchita and son in law because there was concern that patient's left foot stump was getting worse with erythema and upon advice of their family medical doctor. Patient reportedly had been on prescribed outpatient clindamycin for 1 week but it was unclear whether patient was taking the medications as instructed. 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 He denies fevers, vomiting, abdominal discomfort, chest pain or shortness of breath. He reports that his daughter Conchita helps him with medications and that he lives by himself and he has home health aide Family history: patient cannot tell Allergy history: patient cannot tell Principal Diagnosis NECROTIC /INFECTED LEFT FOOT WOUND /SEVERE PERIPHERAL VASCULAR DISEASE /HISTORY OF DVT ON COUMADIN INR SUBTHERAPUTIC ( INR 1.4 ) DISCHAEGED WITH COUMADIN 5 MG DAILY AND SC LOVENOX BRIDGE 40 MG DAILY ( TO BE DISCONTINUED ONCE INR ~2 ) Discharge Exam Constitutional + ill appearing and + thin; no acute distress Eyes + anicteric sclerae ENMT external ear and nose normal, oropharynx normal Neck trachea midline, no thyromegaly Respiratory normal respiratory effort, lungs clear to auscultation Cardiovascular RRR, no murmur, no edema Gastrointestinal (Abdomen) normal bowel sounds, soft, nontender, no hepatosplenomegaly Musculoskeletal necrotic black eschar large wound in left foot , no active drainage , multiple toe amputation Neurologic PERRL, EOMI, accommodation nl, no face palsy, no dysarthria Psychiatric A+Ox3, euthymic affect Discharge Data Allergies Allergy/AdvReac Type Severity Reaction Status Date / Time No Known Allergies Allergy Verified 10/26/18 19:07 Consultations 10/26/18 17:14 ED Decision to Admit Stat 10/26/18 18:21 ED Decision to Admit Stat 10/26/18 19:42 Consult Infectious Diseases Stat 10/26/18 20:25 Consult Case Management - Discharge Planning Routine 10/27/18 11:37 Consult Vascular Surgery Routine 11/01/18 13:06 Consult Podiatry Routine Ordered Studies 10/28/18 10:18 US arterial duplex LE LT Routine IMPRESSION: 1. Redemonstration of the occluded femorotibial graft and occluded [place] superficial femoral and popliteal arteries. 2. Slight worsening of the trace flow within the calf vessels most pronounced within the left posterior tibial and dorsalis pedis arteries. 3. Mild stenosis within the origin of the left deep femoral artery is again noted. Hospital Course (1) Cellulitis of foot: Left foot infected wound with necrosis leading to cellulitis hx of severe Peripheral artery disease / History of Thromboembolism of the lower extremity Hx bilateral femoropopliteal bypass with LLE thrombectomy S/P L 3rd toe amputation on 09/30/18 due to toe gangrene/osteomyelitis. Was discharged on Bactrim DS for 21 days L foot xray showed no radiographic evidence of osteomyelitis lower ext Dopplar IMPRESSION: 1. Redemonstration of the occluded femorotibial graft and occluded [place] superficial femoral and popliteal arteries. 2. Slight worsening of the trace flow within the calf vessels most pronounced within the left posterior tibial and dorsalis pedis arteries. 3. Mild stenosis within the origin of the left deep femoral artery is again noted. was treated with IV Vanco and cefepime Blood cx no growth ID consulted appreciate input Appreciate eval from Vascular surgery Dr Hussein and Podiatry Dr Friedman due to poor circulation -chance of healing of left foot wound in minimum to none needs BKA of left side pt refused to have below knee amputation of left foot Vascular surgery will see patient in office to discuss the options IV Abx D/brinda started on PO Bactrim cont for 4-6 weeks Reason bactrim changed to suspension is because Pt has a hard time to swallow his pills (2) PAD (peripheral artery disease): s/p femoropopliteal bypass: Was admitted for occluded femoropopliteal bypass of left lower extremity in July and is s/p bypass revision arterial duplex showed redemonstration of the occluded femorotibial graft and occluded [place] superficial femoral and popliteal arteries. Slight worsening of the trace flow within the calf vessels most pronounced within the left posterior tibial and dorsalis pedis arteries. Vascular surgery consult Dr. Jovita Hussein recommended amputation below knee Pt refused any amputation of foot or below knee amputation Podiatry consulted , appreciate input Podiatry also recommended below knee amputation given his poor circulation a debridement at this time would be futile since it will not heal Follow up appointment with Dr Hussein on 11/08/18 Abx changed to Bactrim continue plavix, aspirin and coumadin pt [facility] stable to transfer to rehab today (4) CAD (coronary artery disease): History of recent inferior wall STEMI s/p stent to RCA no angina symptom Continue Plavix and statin (5) Systolic HF (heart failure): Recent echo performed on August 07 in setting of acute inferior wall STEMI EF of 40-45% with mildly reduced LV systolic function and akinesis of the proximal and mid inferioposterior badillo Asymptomatic stable vol status (6) Alcohol abuse: hx of ETOH abuse in past leading to possible progression of dementia /encephalopathy No signs of alcohol withdrawn Continue thiamine, folic acid and multivitamin (7) Hypertension: BP stable (8) Tobacco use disorder: Counseling on smoking cessation (9) Hyperlipidemia: Continue statin (10) Peripheral neuropathy: Continue gabapentin DVT px On coumadin Sub q lovenox for DVT prophylaxis till INR theraputic Repeat PT/INR on tuesday 11/07 Sub Q Lovenox will be D/c/ed once INR ~2 CODE STATUS FULL CODE Disposition transfer to [facility] for rehab Total Time Total Time Spent Total Time Spent (In Minutes): approx 40 mins Total Time Includes: Examination of the Patient, Discharge Planning, Medication Reconciliation and Communication With Other Providers Discharge Plan Discharge Items Patient Disposition: Transfer Inpatient Rehab Fac Reason For Visit: LEFT FOOT INFECTION,SUPRATHERAPEUTIC INR Discharge Diagnosis: NECROTIC LEFT FOOT INFECTION /HX OF LOWER EXTREMITY DVT ON COUMADIN /INR SUBTHERAPUTIC -DISCHARGED ON LOVENOX BRIDGE /COUMADIN SEVERE PERIPHERAL VASCULAR DISEASE Condition: Good Discharge Goals: Decrease discomfort and Diagnostic testing Activity: As commented below Activity Comment: CONTINUE PHYSICAL THERAPY /OCCUPATIONAL THERAPY /NON WT BEARING ON LEFT ANNE Weightbearing: Left non-weightbearing Non-emergency contact: Primary Care Provider Call non-emergency contact if: you have any medication questions Follow-up/Referrals: Abhijeet Hussein MD [Physician] - 11/08/18 1:00 pm Diet: Heart Healthy Diet Texture: Dental soft (bite-sized) Other Ambulatory Orders: Prothrombin Time INR (Routine) Timeframe: [id number] Location: Determined by Patient Ordered By: Caitlyn Acosta Provider Instructions: FOLLOW UP WITH VASCULAR SURGERY DR STANLEY ON Wednesday11/08/18 @ 1 PM CONTINUE ANTIBIOTIC BACTRIM FOR 3-4 WEEKS HX OF DVT AND PE DISCHARGED WITH COUMADIN AND LOVENOX BRIDGE FOR SUB THERAPUTIC INR 1.4 PT/INR CHECK ON Wednesday11/07/18 DISCONTINUE SUB Q LOVENOX BRIDGE THERAPY INR ~2 Prescriptions: New doxycycline monohydrate 100 mg capsule 100 mg PO BID Qty: 20 RF: 0 ferrous sulfate 325 mg (65 mg iron) Tablet,Delayed Release (Dr/Ec) 325 mg PO QAM 30 Days Qty: 30 RF: 0 enoxaparin [Lovenox] 40 mg/0.4 mL syringe 40 mg SQ DAILY Qty: 5 RF: 0 sulfamethoxazole-trimethoprim 400-80 mg/5 mL solution 10 ml IV BID 30 Days RF: 0 Continue atorvastatin 80 mg tablet 80 mg PO DAILY RF: 0 cyanocobalamin (vitamin B-12) [Vitamin B-12] 1,000 mcg Tablet 1,000 mcg PO DAILY RF: 0 ranitidine HCl 150 mg tablet 150 mg PO DAILY RF: 0 folic acid 1 mg Tablet 1 mg PO DAILY RF: 0 gabapentin 100 mg capsule 100 mg PO TID PRN (Reason: Pain) RF: 0 thiamine HCl (vitamin B1) 50 mg Tablet 50 mg PO DAILY RF: 0 calcium carbonate-vitamin D3 [Os-[place] 500 + D3] 500 mg(1,250mg) -200 unit Tablet 1 tab PO DAILY RF: 0 magnesium oxide 400 mg magnesium Tablet 400 mg PO DAILY RF: 0 multivitamin [Multiple Vitamins] Tablet 1 tab PO DAILY RF: 0 clopidogrel 75 mg tablet 75 mg PO DAILY RF: 0 Changed warfarin 5 mg tablet 5 mg PO DAILY Qty: 0 RF: 0 Discontinued ferrous sulfate 325 mg (65 mg iron) Tablet 325 mg PO DAILY RF: 0 clindamycin palmitate HCl [Clindamycin Pediatric] 75 mg/5 mL recon soln 20 ml PO Q6H RF: 0 Stand-Alone Forms: My [facility] Discharge Orders: Discharge Order (Routine); Ordered 11/03/18 Ordered By: Caitlyn Person Skilled Items Patient informed of condition?: Yes DNR: No Discharge Level of Care: Acute rehab Communicable Disease: No Discharge Prognosis: Stable Admission Data Admit Date/Time: 10/28/18 09:27 Attending Provider: Caitlyn Person Admit Provider: Mihir Rees Primary Care Provider: Harry Castro Other Providers: Teddy Canela ; Mihir Rees ; Amna Gao ; Abhijeet Hussein ; Harry Friedman ; Raysa Jain Service: Medical Other Pending Studies at Discharge: No
[2018-11-03] MEDS ORDERED: WARFARIN SOD 5 MG TAB PO SCH (16:00)
--- NOTE | 2018-11-07 09:16 | Coding Query ---
CODING QUERY To promote full compliance with coding requirements relating to patient care, provider participation is requested in all cases of nuts and bolts assembler uncertainty. Please assist us with the question(s) below: Coding Question(s): The Discharge Summary documents, " NECROTIC /INFECTED LEFT FOOT WOUND /SEVERE PERIPHERAL VASCULAR DISEASE" and the Hospital Course describes, Cellulitis of foot: Left foot infected wound with necrosis leading to cellulitis, and, hx of severe Peripheral artery disease / History of Thromboembolism of the lower extremity, with the lower extremety doppler showing an impression that includes, "Redemonstration of the occluded femorotibial graft and occluded [place] superficial femoral and popliteal arteries.". Please clarify below, in your clinical opinion, regarding the NECROTIC /INFECTED LEFT FOOT WOUND /SEVERE PERIPHERAL VASCULAR DISEASE. Please check all that apply. ( ) Necrotic/Infected Left Foot Wound is likely a complication of the amputation stump ( X ) Necrotic/Infected Left Foot Wound is likely due to Severe Peripheral Vascular Disease ( ) Necrotic/Infected Left Foot Wound is likely due to Other: Please Specify___ ( ) Necrotic/Infected Left Foot Wound is due to Unknown likely etiology Physician's Response(s): Thank you Anh Alvarado Principal Diagnosis: "that condition established after study, to be chiefly responsible for occasioning the admission of the patient to the hospital for care." Co-Existing Principal Diagnosis: "when two or more diagnoses equally meet the criteria for principal diagnosis as determined by the circumstances of admission , diagnostic work up, and/or therapy provided, and the Alphabetic Index, Tabular List, or another coding guideline does not provide sequencing direction , any one of the diagnoses may be sequenced first." "When the physician has documented what appears to be a current diagnosis in the body of the record, but has not included the diagnosis in the final diagnostic statement, the physician should be asked whether the diagnosis should be added." (Source Coding [facility] 2 QTR90. p3-4) ALFREDO
--- NOTE | 2018-11-07 09:20 | Coding Query ---
To promote full compliance with coding requirements relating to patient care, provider participation is requested in all cases of general engineering teacher uncertainty. Please assist us with the question(s) below: Coding Question(s): The diagnosis below was documented in the H&P, then subsequently fell off all further documentation. Please indicate if it is still a possible diagnosis or ruled out. Physician's Response(s): Chronic Systolic HF (heart failure) with Decompensation. (Regarding only the "Decompensation") ( ) Diagnosed and POA (X ) Diagnosed and not POA ( ) Ruled out ( ) Other (please specify) MTDD
--- NOTE | 2018-11-08 07:51 | Coding Query ---
CODING QUERY To promote full compliance with coding requirements relating to patient care, provider participation is requested in all cases of maori physiotherapist uncertainty. Please assist us with the question(s) below: Coding Question(s): On the previous query regarding the documentation of Chronic Systolic HF (heart failure) with Decompensation, where the decompensation was documented on H&P, you had verified regarding the decompensation, that it was diagnosed and not POA. Please clarify below, regarding the treatment, during this admission of the Chronic Systolic Heart Failure with Decompensation. ( ) Treatment was with medication and monitoring. Please specify the medication ( ) Treatment was with careful monitoring and evaluation ( ) There was no significant treatment with medication or monitoring Physician's Response(s): This admission patient being followed by Dr Cabrera Kay not involved in the care please send the quary to him thank you Thank you Anh Alvarado Principal Diagnosis: "that condition established after study, to be chiefly responsible for occasioning the admission of the patient to the hospital for care." Co-Existing Principal Diagnosis: "when two or more diagnoses equally meet the criteria for principal diagnosis as determined by the circumstances of admission , diagnostic work up, and/or therapy provided, and the Alphabetic Index, Tabular List, or another coding guideline does not provide sequencing direction , any one of the diagnoses may be sequenced first." "When the physician has documented what appears to be a current diagnosis in the body of the record, but has not included the diagnosis in the final diagnostic statement, the physician should be asked whether the diagnosis should be added." (Source [facility] 2 QTR90. p3-4) ALFREDO
--- NOTE | 2018-11-09 06:33 | Coding Query ---
CODING QUERY To promote full compliance with coding requirements relating to patient care, provider participation is requested in all cases of medical biller/coder uncertainty. Please assist us with the question(s) below: Coding Question(s): Chronic Systolic HF (heart failure) with Decompensation was documented on H&P. Please clarify below, regarding the treatment, during this admission of the Chronic Systolic Heart Failure with Decompensation. ( ) Treatment was with medication and monitoring. Please specify the medication ( ) Treatment was with careful monitoring and evaluation ( ) There was no significant treatment with medication or monitoring Physician's Response(s): There is no acute CHF. Please see my note as of . Dr. Gordon is patient's doctor starting 11/09/18 Thank you Anh Alvarado Principal Diagnosis: "that condition established after study, to be chiefly responsible for occasioning the admission of the patient to the hospital for care." Co-Existing Principal Diagnosis: "when two or more diagnoses equally meet the criteria for principal diagnosis as determined by the circumstances of admission , diagnostic work up, and/or therapy provided, and the Alphabetic Index, Tabular List, or another coding guideline does not provide sequencing direction , any one of the diagnoses may be sequenced first." "When the physician has documented what appears to be a current diagnosis in the body of the record, but has not included the diagnosis in the final diagnostic statement, the physician should be asked whether the diagnosis should be added." (Source [facility] 2 QTR90. p3-4) ALFREDO
== END 2018-11-03 16:31 | DRG 300 ==
LOC: ED 13:43 → 4E 13:43 → SUATTDRO 10-28 09:27